=== PATIENT | male | born 1935 | race Asian ===

== ENCOUNTER 2016-11-28 10:36 | Inpatient (IN) | payer MEDICARE, MEDICAID ==
[~2016-11-28] VITALS: Ht 170.2 cm; Wt 72.6 kg
[~2016-11-28 10:36] MED LIST: ALLOPURINOL100 M1 ORAL; AMLODIPINE BESYL5 MG ORAL; ANTIVERT12.5 MG ORAL; ANTIVERT25 MG ORAL; APRODINE TABLE1 EACH PO; ASPIR 8181 MG ORAL; ASPIRIN-LOW81 MG ORAL; ASPIRIN81 MG ORAL; BACTRIM DS TAB1 EAC1 ORAL; CELEBREX200 MG ORAL; CILOSTAZOL100 MG PO; COREG12.5 MG ORAL; COREG25 MG ORAL; CREON DR 24,001 EACH PO; CRESTOR10 M1 ORAL; DESYREL50 MG ORAL; DIOVAN320 MG ORAL; DONEPEZIL HCL10 M2 ORAL; FINASTERIDE5 MG ORAL; FLOMAX0.4 MG ORAL; ISOSORBIDE MONO20 MG PO; Isosorbide Mononitrate ORAL; LORATADINE10 M2 PO; LYRICA75 M1 ORAL; MELATIN3 MG PO; NEPHRO-VITE RX1 EAC1 PO; NEXIUM40 MG ORAL; NORVASC5 MG ORAL; OMEPRAZOLE20 M2 ORAL; OSTERA TABLET1 EACH PO; PLAVIX75 MG ORAL; PREVACID30 M2 ORAL; PROCARDIA XL30 MG ORAL; PROTONIX40 MG ORAL; RISPERDAL0.25 MG ORAL; TAMSULOSIN HCL0.4 MG ORAL; TOPROL XL25 MG ORAL; UNOBMED; URECHOLINE10 MG ORAL
[2016-11-28 12:11] LABS: BASOPHILS % (AUTO) 0.5 % (0.0-2.0); EOSINOPHILS % (AUTO) 2.7 % (0.0-3.0); LYMPHOCYTES % (AUTO) 13.7 % (20.0-45.0); MEAN CORPUSCULAR HEMOGLOBIN 32.5 PG (27.0-31.0); MEAN CORPUSCULAR HGB CONC 33.4 G/DL (32.0-36.0); MEAN CORPUSCULAR VOLUME 98 FL (80-99); MEAN PLATELET VOLUME 7.9 FL (6.5-10.1); MONOCYTES % (AUTO) 10.4 % (1.0-10.0); NEUTROPHILS % (AUTO) 72.8 % (45.0-75.0); PLATELET COUNT 142 K/UL (150-450); RED BLOOD COUNT 3.04 M/UL (4.70-6.10); RED CELL DISTRIBUTION WIDTH 13.8 % (11.6-14.8); WHITE BLOOD COUNT 6.2 K/UL (4.8-10.8)
[2016-11-28 12:22] LABS: ALANINE AMINOTRANSFERASE 38 U/L (3-41); ALBUMIN/GLOBULIN RATIO 1.5 (1.0-2.7); ANION GAP 15 (5-15); ASPARTATE AMINO TRANSFERASE 31 U/L (5-40); CALCIUM 8.6 mg/dL (8.6-10.2); CARBON DIOXIDE 15 mEQ/L (20-30); CHLORIDE 110 mEQ/L (98-107); CREATININE 4.1 mg/dL (0.7-1.2); HEMOLYSIS 5; POTASSIUM 4.9 mEQ/L (3.4-4.9); SODIUM 140 mEQ/L (135-145); TOTAL PROTEIN 5.9 g/dL (6.6-8.7)
[2016-11-28 12:29] LABS: TROPONIN I < 0.30 ng/mL (<=0.30)
[2016-11-28 12:54] VITALS: BP 125/48
[2016-11-28 13:40] LABS: APPEARANCE,URINE CLEAR; KETONES,URINE NEGATIVE (NEGATIVE); LEUKOCYTE ESTERASE ,URINE NEGATIVE (NEGATIVE); NITRITE,URINE NEGATIVE (NEGATIVE); PH,URINE 5 (4.5-8.0); PROTEIN,URINE 4+ (NEGATIVE); UROBILINOGEN,URINE NORMAL MG/DL (0.0-1.0)
[2016-11-28 13:51] LABS: BACTERIA,URINE FEW /HPF; SQUAMOUS EPITHELIAL CELL,UR OCCASIONAL /LPF (NONE/OCC); WBC,URINE 0-2 /HPF (0 - 0)
--- NOTE | 2016-11-28 14:11 | Emergency Room Report ---
History of Present Illness General Chief Complaint: Pain Source: Family Member Present Illness HPI 81-year-old male presents ED complaining of shortness of breath. Son is at bedside and states the last 2 weeks patient has had increased shortness of breath. Denies any chest pain. Denies any fevers or chills. Patient also complaining of some flank pain. Patient has history of kidney disease, yeast to get dialysis but no longer gets dialysis at this time. Pain is sharp, 5/10, nonradiating. No other aggravating or relieving factors. PMD is Dr. Mckeon. Denies any other associated symptoms Allergies: Coded Allergies: No Known Allergies (Unverified , 12/16/14) Patient History Past Medical History: HTN, COPD, CVA/TIA, dementia, renal disease Past Surgical History: none Pertinent Family History: none Social History: Denies: alcohol use, drug use, smoking Immunizations: UTD Reviewed Nursing Documentation: PMH: Agreed, PSxH: Agreed Nursing Documentation-PMH Past Medical History: No History, Except For Hx Hypertension: Yes Hx COPD: Yes Hx Cancer: No Hx Gastrointestinal Problems: Yes Hx Dialysis: Yes - Previous.3 months ago Hx Neurological Problems: Yes Hx Cerebrovascular Accident: Yes Hx Dementia: Yes Review of Systems All Other Systems: negative except mentioned in HPI Physical Exam Vital Signs Date Time Temp Pulse Resp B/P Pulse Ox O2 Delivery O2 Flow Rate FiO2 11/28/16 10:47 97.2 64 22 125/48 90 Room Air Sp02 EP Interpretation: reviewed, normal General Appearance: no apparent distress, alert, GCS 15, non-toxic Head: normocephalic, atraumatic Eyes: bilateral eye PERRL, bilateral eye normal inspection ENT: hearing grossly normal, normal pharynx, no angioedema, normal voice Neck: full range of motion, supple/symm/no masses Respiratory: chest non-tender, normal breath sounds, crackles, speaking full sentences Cardiovascular #1: regular rate, rhythm, no edema Cardiovascular #2: 2+ carotid (R), 2+ carotid (L), 2+ radial (R), 2+ radial (L) , 2+ dorsalis pedis (R), 2+ dorsalis pedis (L) Gastrointestinal: normal bowel sounds, non tender, soft, non-distended, no guarding, no rebound Rectal: deferred Genitourinary: normal inspection, no CVA tenderness Musculoskeletal: back normal, gait/station normal, normal range of motion, non- tender, swelling - 1+ pitting edema b/l LE Neurologic: alert, oriented x3, responsive, motor strength/tone normal, sensory intact, speech normal Psychiatric: judgement/insight normal, memory normal, mood/affect normal, no suicidal/homicidal ideation Reflexes: 3+ bicep (R), 3+ bicep (L), 3+ tricep (R), 3+ tricep (L), 3+ knee (R) , 3+ knee (L) Skin: normal color, no rash, warm/dry, well hydrated Lymphatic: no adenopathy Medical Decision Making Diagnostic Impression: Primary Impression: CHF exacerbation Qualified Codes: I50.9 - Heart failure, unspecified Additional Impression: Acute on chronic renal failure ER Course Hospital Course 81-year-old male presents ED complaining of shortness of breath, leg swelling Differential diagnoses include: VT/unstable angina, contusion, muscle strain, PTX, rib fracture Clinical course Patient placed on stretcher. 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 After initial history and physical I ordered labs, EKG, chest x-ray labs reviewed- no leukocytosis, hemoglobin/hematocrit stable, creatinine 4.1, troponins negative, BNP greater than 20,000 Chest x-ray- pulmonary congestion, cardiomegaly. EKG - no ischemic changes, afib Antibiotics given. Lasix given. Case discussed with Dr. Mckeon and he agreed to accept the patient to his service for further care and support I. I feel this is a highly complex case requiring extensive working including EKG/Rhythm strip, Xray/CT/US, Blood/urine lab work, repeat exams while in ED, and administration of strong opiates/narcotics for pain control, admission to hospital or close patient follow up. Diagnosis - CHF exacerbation, acute on chronic renal failure admitted to telemetry in serious condition Labs Test 11/28/16 11:45 11/28/16 13:30 White Blood Count 6.2 K/UL (4.8-10.8) Red Blood Count 3.04 M/UL (4.70-6.10) Hemoglobin 9.9 G/DL (14.2-18.0) Hematocrit 29.7 % (42.0-52.0) Mean Corpuscular Volume 98 FL (80-99) Mean Corpuscular Hemoglobin 32.5 PG (27.0-31.0) Mean Corpuscular Hemoglobin Concent 33.4 G/DL (32.0-36.0) Red Cell Distribution Width 13.8 % (11.6-14.8) Platelet Count 142 K/UL (150-450) Mean Platelet Volume 7.9 FL (6.5-10.1) Neutrophils (%) (Auto) 72.8 % (45.0-75.0) Lymphocytes (%) (Auto) 13.7 % (20.0-45.0) Monocytes (%) (Auto) 10.4 % (1.0-10.0) Eosinophils (%) (Auto) 2.7 % (0.0-3.0) Basophils (%) (Auto) 0.5 % (0.0-2.0) Sodium Level 140 mEQ/L (135-145) Potassium Level 4.9 mEQ/L (3.4-4.9) Chloride Level 110 mEQ/L (98-107) Carbon Dioxide Level 15 mEQ/L (20-30) Anion Gap 15 (5-15) Blood Urea Nitrogen 44 mg/dL (7-23) Creatinine 4.1 mg/dL (0.7-1.2) Estimat Glomerular Filtration Rate mL/min (>60) Glucose Level 164 mg/dL (74-106) Lactic Acid Level 1.70 mmol/L (0.66-2.22) Calcium Level 8.6 mg/dL (8.6-10.2) Total Bilirubin 0.4 mg/dL (0.0-1.2) Aspartate Amino Transf (AST/SGOT) 31 U/L (5-40) Alanine Aminotransferase (ALT/SGPT) 38 U/L (3-41) Alkaline Phosphatase 102 U/L (40-129) Total Creatine Kinase 63 U/L (38-174) Troponin I < 0.30 ng/mL (<=0.30) Pro-B-Type Natriuretic Peptide 71355 pg/mL (0-450) Total Protein 5.9 g/dL (6.6-8.7) Albumin 3.6 g/dL (3.5-5.2) Globulin 2.3 g/dL Albumin/Globulin Ratio 1.5 (1.0-2.7) Urine Color Yellow Urine Appearance Clear Urine pH 5 (4.5-8.0) Urine Specific [place] 1.015 (1.005-1.035) Urine Protein 4+ (NEGATIVE) Urine Glucose (UA) 1+ (NEGATIVE) Urine Ketones Negative (NEGATIVE) Urine Occult Blood 2+ (NEGATIVE) Urine Nitrite Negative (NEGATIVE) Urine Bilirubin Negative (NEGATIVE) Urine Urobilinogen Normal MG/DL (0.0-1.0) Urine Leukocyte Esterase Negative (NEGATIVE) Urine RBC 5-10 /HPF (0 - 0) Urine WBC 0-2 /HPF (0 - 0) Urine Squamous Epithelial Cells Occasional /LPF Urine Bacteria Few /HPF (NONE) EKG Diagnostic Results Rate: normal Rhythm: other - afib ST Segments: no acute changes ASA given to the pt in ED: No Rhythm Strip Diag. Results EP Interpretation: yes Rhythm: NSR, no PVC's, no ectopy Chest X-Ray Diagnostic Results EP Interpretation: No Findings: no pneumothorax, no acute cardiopulmonary disease, other - cardionmegaly. b/l effusion. pulmonary congestion Number of Views: 1 Last Vital Signs Date Time Temp Pulse Resp B/P Pulse Ox O2 Delivery O2 Flow Rate FiO2 11/28/16 12:54 97.2 64 22 125/48 90 Room Air Status: improved Disposition: ADMITTED INPATIENT Condition: Serious Referrals: CHECO SALAZAR (PCP) DAVION CATHERINE M.D. Nov 28, 2016 14:11
[2016-11-28 14:31] VITALS: BP 128/51
[2016-11-28 16:00] VITALS: BP 140/60
--- NOTE | 2016-11-28 16:42 | History & Physical ---
History and Physical History & Physicial # [id number] CHECO SALAZAR Nov 28, 2016 16:42
[2016-11-28] MEDS: RisperiDONE 0.25mg tab ORAL SCH (17:21)
[2016-11-28] MEDS: Tamsulosin 0.4mg cap ORAL SCH (17:21)
--- NOTE | 2016-11-28 17:38 | Consultation ---
History of Present Illness General Date patient seen: Nov 28, 2016 Chief Complaint: dyspnea Reason for Consultation: dyspnea Present Illness HPI 81-year-old male with hx of CODP, ESRF, was on HD at some point presents ED complaining of shortness of breath. Son is at bedside and states the last 2 weeks patient has had increased shortness of breath. Denies any chest pain. Denies any fevers or chills. . Pain is sharp, 5/10, nonradiating. His CXR showed increased interstitial marking and I was asked to evaluate him. Pt seems slightly short of breath with occasional cough Allergies: Coded Allergies: No Known Allergies (Unverified , 12/16/14) Medication History Scheduled Amlodipine Besylate (Norvasc), 5 MG ORAL BID Aspirin (Aspirin EC), 81 MG ORAL DAILY, (Reported) Bethanechol Chl (Bethanechol Chloride), 10 MG ORAL THREE TIMES A DAY Carvedilol (Coreg), 25 MG ORAL EVERY 12 HOURS Donepezil Hcl* (Donepezil Hcl*), 10 MG ORAL DAILY, (Reported) Finasteride (Finasteride), 5 MG ORAL DAILY Meclizine Hcl* (Antivert*), 12.5 MG ORAL TID Omeprazole (Omeprazole), 20 MG ORAL DAILY, (Reported) Risperidone* (Risperdal*), 0.25 MG ORAL BID Tamsulosin HCl (Flomax), 0.4 MG ORAL TWICE A DAY Trazodone Hcl (Desyrel), 50 MG ORAL QHS Miscellaneous Medications Vit D3 & K/Berberine Hcl/Hops (Ostera Tablet), 1 EACH PO, (Reported) Patient History Healthcare decision maker Resuscitation status Advanced Directive on File Past Medical/Surgical History Past Medical/Surgical History: (1) ESRD (end stage renal disease) on dialysis (2) CVA (cerebral infarction) Review of Systems Respiratory: Reports: shortness of breath Physical Exam General Appearance: WD/WN HEENT: atraumatic Neck: non-tender Respiratory/Chest: chest wall non-tender, rhonchi - left, rhonchi - right Cardiovascular/Chest: normal peripheral pulses, normal rate Abdomen: normal bowel sounds Genitourinary/Rectal: normal genital exam, normal rectal exam Extremities: normal range of motion, non-tender, non-pitting 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 normal Last 24 Hour Vital Signs Date Time Temp Pulse Resp B/P Pulse Ox O2 Delivery O2 Flow Rate FiO2 11/28/16 17:21 66 140/60 11/28/16 16:00 98.0 66 20 140/60 92 Nasal Cannula 2.0 11/28/16 15:05 97.2 64 22 128/51 95 Room Air 11/28/16 14:31 97.2 64 22 128/51 95 Room Air 11/28/16 12:54 97.2 64 22 125/48 90 Room Air 11/28/16 10:47 97.2 64 22 125/48 90 Room Air Laboratory Tests Test 11/28/16 11:45 11/28/16 13:30 White Blood Count 6.2 K/UL (4.8-10.8) Red Blood Count 3.04 M/UL (4.70-6.10) L Hemoglobin 9.9 G/DL (14.2-18.0) L Hematocrit 29.7 % (42.0-52.0) L Mean Corpuscular Volume 98 FL (80-99) Mean Corpuscular Hemoglobin 32.5 PG (27.0-31.0) H Mean Corpuscular Hemoglobin Concent 33.4 G/DL (32.0-36.0) Red Cell Distribution Width 13.8 % (11.6-14.8) Platelet Count 142 K/UL (150-450) L Mean Platelet Volume 7.9 FL (6.5-10.1) Neutrophils (%) (Auto) 72.8 % (45.0-75.0) Lymphocytes (%) (Auto) 13.7 % (20.0-45.0) L Monocytes (%) (Auto) 10.4 % (1.0-10.0) H Eosinophils (%) (Auto) 2.7 % (0.0-3.0) Basophils (%) (Auto) 0.5 % (0.0-2.0) Sodium Level 140 mEQ/L (135-145) Potassium Level 4.9 mEQ/L (3.4-4.9) Chloride Level 110 mEQ/L (98-107) H Carbon Dioxide Level 15 mEQ/L (20-30) L Anion Gap 15 (5-15) Blood Urea Nitrogen 44 mg/dL (7-23) H Creatinine 4.1 mg/dL (0.7-1.2) H Estimat Glomerular Filtration Rate mL/min (>60) Glucose Level 164 mg/dL (74-106) H Lactic Acid Level 1.70 mmol/L (0.66-2.22) Calcium Level 8.6 mg/dL (8.6-10.2) Total Bilirubin 0.4 mg/dL (0.0-1.2) Aspartate Amino Transf (AST/SGOT) 31 U/L (5-40) Alanine Aminotransferase (ALT/SGPT) 38 U/L (3-41) Alkaline Phosphatase 102 U/L (40-129) Total Creatine Kinase 63 U/L (38-174) Creatine Kinase MB 2.0 ng/mL (< 6.7) Creatine Kinase MB Relative Index 3.1 Troponin I < 0.30 ng/mL (<=0.30) Pro-B-Type Natriuretic Peptide 32347 pg/mL (0-450) H Total Protein 5.9 g/dL (6.6-8.7) L Albumin 3.6 g/dL (3.5-5.2) Globulin 2.3 g/dL Albumin/Globulin Ratio 1.5 (1.0-2.7) Urine Color Yellow Urine Appearance Clear Urine pH 5 (4.5-8.0) Urine Specific [place] 1.015 (1.005-1.035) Urine Protein 4+ (NEGATIVE) H Urine Glucose (UA) 1+ (NEGATIVE) H Urine Ketones Negative (NEGATIVE) Urine Occult Blood 2+ (NEGATIVE) H Urine Nitrite Negative (NEGATIVE) Urine Bilirubin Negative (NEGATIVE) Urine Urobilinogen Normal MG/DL (0.0-1.0) Urine Leukocyte Esterase Negative (NEGATIVE) Urine RBC 5-10 /HPF (0 - 0) H Urine WBC 0-2 /HPF (0 - 0) Urine Squamous Epithelial Cells Occasional /LPF Urine Bacteria Few /HPF (NONE) Height (Feet): 5 Height (Inches): 7.00 Weight (Pounds): 160 Medications Current Medications Medications (Trade) Dose Ordered Sig/Kris Route PRN Reason Start Time Stop Time Status Last Admin Dose Admin Acetaminophen (Tylenol) 650 mg Q4H PRN ORAL Mild Pain/Temp > 100.5 11/28/16 16:45 12/28/16 16:44 Amlodipine Besylate (Norvasc) 5 mg BID ORAL 11/28/16 18:00 12/28/16 17:59 11/28/16 17:21 Aspirin (Ecotrin) 81 mg DAILY ORAL 11/29/16 09:00 12/29/16 08:59 Carvedilol (Coreg) 25 mg EVERY 12 HOURS ORAL 11/28/16 21:00 12/28/16 20:59 Finasteride (Proscar) 5 mg DAILY ORAL 11/29/16 09:00 12/29/16 08:59 Heparin Sodium (Porcine) (Heparin 5000 units/ml) 5,000 units EVERY 12 HOURS SUBQ 11/28/16 21:00 12/28/16 20:59 Ondansetron HCl (Zofran) 4 mg Q6H PRN IVP Nausea & Vomiting 11/28/16 16:45 12/28/16 16:44 Pantoprazole (Protonix) 40 mg ACBREAKFAST ORAL 11/28/16 16:30 12/28/16 16:29 11/28/16 17:21 Risperidone (RisperDAL) 0.25 mg BID ORAL 11/28/16 18:00 12/28/16 17:59 11/28/16 17:21 Tamsulosin HCl (Flomax) 0.4 mg TWICE A DAY ORAL 11/28/16 18:00 12/28/16 17:59 11/28/16 17:21 Trazodone HCl (Desyrel) 50 mg QHS ORAL 11/28/16 21:00 12/28/16 20:59 Assessment/Plan Problem List: (1) Interstitial lung disease ICD Codes: J84.9 - Interstitial pulmonary disease, unspecified SNOMED: 09733972, 386746083 (2) COPD (chronic obstructive pulmonary disease) ICD Codes: J44.9 - Chronic obstructive pulmonary disease, unspecified SNOMED: 79017972 (3) Chronic renal failure ICD Codes: N18.9 - Chronic renal failure SNOMED: 84134277 (4) ESRD (end stage renal disease) on dialysis ICD Codes: N18.6 - End stage renal failure on dialysis; Z99.2 - Dependence on renal dialysis SNOMED: 550827617 (5) CVA (cerebral infarction) ICD Codes: I63.9 - Cerebral infarction SNOMED: 658340274 Assessment/Plan Respiratory treatment titrate fio2 will get HRCT to evaluate interstitial finding on CXR Renal f/u. BRITT CASEY Nov 28, 2016 17:38
[2016-11-28] MEDS ORDERED: RisperiDONE 0.25mg tab ORAL SCH (18:00)
[2016-11-28 20:00] VITALS: BP 156/65
[2016-11-28] MEDS: TraZODone 50mg tab ORAL SCH (20:49)
[2016-11-28] MEDS: Carvedilol 25mg Tab ORAL SCH (20:49)
--- NOTE | 2016-11-28 20:52 | Cardiology Progress Note ---
Assessment/Plan Assessment/Plan exertion dyspnea / diastolic failure ? htn ckd advanced paf hs htn hx s/p cea s/p resection of ?kidney and partial y of liver and stomach (all per pt report ) received diuretic await echo await torp ekg labs in am diuretic if and when ok with dr french thank you [id number] Objective Last 24 Hour Vital Signs Date Time Temp Pulse Resp B/P Pulse Ox O2 Delivery O2 Flow Rate FiO2 11/28/16 20:00 98.1 71 21 156/65 92 Nasal Cannula 2.0 11/28/16 17:21 66 140/60 11/28/16 16:00 70 11/28/16 16:00 98.0 66 20 140/60 92 Nasal Cannula 2.0 11/28/16 15:05 97.2 64 22 128/51 95 Room Air 11/28/16 14:31 97.2 64 22 128/51 95 Room Air 11/28/16 12:54 97.2 64 22 125/48 90 Room Air 11/28/16 10:47 97.2 64 22 125/48 90 Room Air Laboratory Tests Test 11/28/16 11:45 11/28/16 13:30 White Blood Count 6.2 K/UL (4.8-10.8) Red Blood Count 3.04 M/UL (4.70-6.10) L Hemoglobin 9.9 G/DL (14.2-18.0) L Hematocrit 29.7 % (42.0-52.0) L Mean Corpuscular Volume 98 FL (80-99) Mean Corpuscular Hemoglobin 32.5 PG (27.0-31.0) H Mean Corpuscular Hemoglobin Concent 33.4 G/DL (32.0-36.0) Red Cell Distribution Width 13.8 % (11.6-14.8) Platelet Count 142 K/UL (150-450) L Mean Platelet Volume 7.9 FL (6.5-10.1) Neutrophils (%) (Auto) 72.8 % (45.0-75.0) Lymphocytes (%) (Auto) 13.7 % (20.0-45.0) L Monocytes (%) (Auto) 10.4 % (1.0-10.0) H Eosinophils (%) (Auto) 2.7 % (0.0-3.0) Basophils (%) (Auto) 0.5 % (0.0-2.0) Sodium Level 140 mEQ/L (135-145) Potassium Level 4.9 mEQ/L (3.4-4.9) Chloride Level 110 mEQ/L (98-107) H Carbon Dioxide Level 15 mEQ/L (20-30) L Anion Gap 15 (5-15) Blood Urea Nitrogen 44 mg/dL (7-23) H Creatinine 4.1 mg/dL (0.7-1.2) H Estimat Glomerular Filtration Rate mL/min (>60) Glucose Level 164 mg/dL (74-106) H Lactic Acid Level 1.70 mmol/L (0.66-2.22) Calcium Level 8.6 mg/dL (8.6-10.2) Total Bilirubin 0.4 mg/dL (0.0-1.2) Aspartate Amino Transf (AST/SGOT) 31 U/L (5-40) Alanine Aminotransferase (ALT/SGPT) 38 U/L (3-41) Alkaline Phosphatase 102 U/L (40-129) Total Creatine Kinase 63 U/L (38-174) Creatine Kinase MB 2.0 ng/mL (< 6.7) Creatine Kinase MB Relative Index 3.1 Troponin I < 0.30 ng/mL (<=0.30) Pro-B-Type Natriuretic Peptide 63554 pg/mL (0-450) H Total Protein 5.9 g/dL (6.6-8.7) L Albumin 3.6 g/dL (3.5-5.2) Globulin 2.3 g/dL Albumin/Globulin Ratio 1.5 (1.0-2.7) Urine Color Yellow Urine Appearance Clear Urine pH 5 (4.5-8.0) Urine Specific [place] 1.015 (1.005-1.035) Urine Protein 4+ (NEGATIVE) H Urine Glucose (UA) 1+ (NEGATIVE) H Urine Ketones Negative (NEGATIVE) Urine Occult Blood 2+ (NEGATIVE) H Urine Nitrite Negative (NEGATIVE) Urine Bilirubin Negative (NEGATIVE) Urine Urobilinogen Normal MG/DL (0.0-1.0) Urine Leukocyte Esterase Negative (NEGATIVE) Urine RBC 5-10 /HPF (0 - 0) H Urine WBC 0-2 /HPF (0 - 0) Urine Squamous Epithelial Cells Occasional /LPF Urine Bacteria Few /HPF (NONE) DARBY MARIE Nov 28, 2016 20:52
[2016-11-28] MEDS: Heparin 5000 units/ml inj SUBQ SCH (21:00)
[2016-11-29] VITALS (8 sets, daily range): BP systolic 144–165; BP diastolic 61–86
--- NOTE | 2016-11-29 02:38 | History and Physical Report ---
DATE OF ADMISSION: 11/28/2016 HISTORY OF PRESENT ILLNESS: The patient is an 81-year-old and comes in to our emergency room with shortness of breath. The patient is known to me as he follows me in the office. I saw him a week ago in the office and he was mainly stable with some elevated blood pressure. Apparently, he has been complaining of weakness and shortness of breath for the past few days and he was brought into emergency room for that reason. PAST HISTORY: Significant for TIAs, CVA, and hypertension. The patient at one point was on hemodialysis, but was found to have urinary outlet obstruction and BPH, so he came off from dialysis and creatinine has been under 3, but today his creatinine in emergency room is 4.1. The patient also has high cholesterol, coronary artery disease, history of multifocal atrial tachycardia, COPD, bronchitis, and interstitial lung disease. MEDICATIONS: According to the list, the patient takes regularly Flomax and Proscar for BPH. PHYSICAL EXAMINATION: GENERAL: At this point, the patient appears comfortable and is slow. VITAL SIGNS: Temperature 98 degrees, pulse rate 66, respiratory rate 20, and blood pressure 140/60. HEENT: Face is pale. Head is normocephalic. NECK: Rigid to all directions. Sclerae is not icteric. LUNGS: Poor inspiratory effort. Decreased breath sounds over the bases. HEART: Regular with occasional irregular beats. ABDOMEN: Soft. Multiple scars of previous surgery. Slight tenderness over the lower extremities. EXTREMITIES: Lower extremities, no edema. The patient has a fistula over the left arm with good bruit. LABORATORY DATA: Hemoglobin is 9.9. Creatinine is 4.1 and bicarbonate is 15. Pro-natriuretic peptide is 20,000. Urinalysis is 4+ protein. IMPRESSION: 1. Acute on chronic renal failure. 2. Pulmonary symptoms are most likely secondary to volume overload and congestive heart failure. 3. History of multi-infarct brain disease. 4. Hypertension. 5. Coronary artery disease and history of cardiac arrhythmia. PLAN: At this point is to continue the patient on his usual medications, which is Norvasc, aspirin, Coreg, Proscar, Protonix, Flomax, and trazodone. The patient was given one dose of IV Lasix. We will diurese as needed. Optimize cardiac status. 2D echocardiogram and kidney ultrasound will be ordered. Pulmonary and cardiology consultation is sought. According to how the patient's condition evolves, we will make the proper changes in our future management. Ady Gómez M.D. DR: JERRY JOB#: [id number] CC:
--- NOTE | 2016-11-29 07:08 | Consultation ---
DATE OF CONSULTATION: 11/28/2016 CARDIAC CONSULTATION: CONSULTING PHYSICIAN: Marko Thakkar M.D. REFERRING PHYSICIAN: Ady Gómez M.D. REASON FOR REFERRAL: Shortness of breath. HISTORY OF PRESENT ILLNESS: This is an elderly gentleman, German descent, a patient, who was transferred through one of our staff that speaks German and it sounds like that he has had a history of medical problems previously that delineated below, and who presented to the hospital because of shortness of breath with exertion. Anytime, he walks to the bathroom, he has shortness of breath. There is no PND. He uses one pillow. He has occasional dizziness and likely he has occasional palpitations, but no pain, pressure, or tightness in his chest. PAST MEDICAL HISTORY: His past medical history is positive for history of intractable diarrhea, and possible colitis, hypertension, and chronic kidney disease, stage 3, history of multiple brain infarcts in the past with decreased cognition, and coronary artery disease, of unknown details, history of gastroesophageal reflux disease, and apparently previously on dialysis, multifocal atrial tachycardia, respiratory failure, COPD and history of atrial fibrillation with rapid ventricular response, and fluid overload. Past medical history is also positive for history of partial nephrectomy and hepatectomy and possible gastrectomy of some kind at [facility] a number of years ago. Unfortunately, details of these are unknown. Past medical history also indicates that the patient has a history of carotid endarterectomy on the right side and multiple back surgeries as well. ALLERGIES: There is no known drug allergies. SOCIAL HISTORY: He does not smoke or drink alcoholic beverages. REVIEW OF SYSTEMS: Gastrointestinal: Denies any nausea or vomiting. No diarrhea or constipation. No bloody stools or black stools. Genitourinary: He has occasional discomfort on urination. Pulmonary: Denies any coughing or wheezing. Constitutional: He denies any fever, chills, or night sweats. PHYSICAL EXAMINATION: GENERAL: Shows him to be an elderly gentleman, in no apparent respiratory distress. NECK: Supple. No jugular venous distention. CAROTIDS: Scar in the right side is noted. LUNGS: Clear in the upper, he had some crackles on the right side more so than the left side. CARDIAC: Regular rate and rhythm. Systolic ejection murmur. There is no RV lift, heaves, or thrills noted. ABDOMEN: Soft. Multiple surgical scars and some tenderness to deep palpation. No guarding. No rigidity. EXTREMITIES: There is no clubbing, cyanosis, nor is there any edema. NEUROLOGIC: He is awake, alert, responsive, and in no apparent respiratory distress. LABORATORY DATA: His labs to this hospitalization show white count of 6.2, hemoglobin 9.9, and platelet count of 142,000. His sodium is 140, potassium 4.9, chloride 110, bicarbonate 50, BUN 44, creatinine 4.1, and glucose of 164. His creatinine is higher than his baseline of 2.5 back in January of 2016. Pro-BNP is 20,000. Troponin is less than 0.03. His urinalysis, 5 to 10 RBCs, 0 to 2 WBCs, and unfortunately, he does not have any EKGs for me to review. He had a chest x-ray to my reading, shows cardiomegaly , and possibly some infiltrate at the bases. No electrocardiogram review unfortunately. ASSESSMENT: 1. Exertional chest pain. 2. History of carotid endarterectomy. 3. Chronic kidney disease. 4. atrial fibrillation. 5. History of hypertension. 6. Hyperlipidemia. PLAN: This patient was seen in cardiac consultation. The patient had progressive renal disease with the creatinine being elevated. I would check an echocardiogram for evaluation of systolic function. EKG is to be ordered. His natriuretic peptide was diagnosed in light of the fact that he has renal insufficiency to a subscript degree. He has received some diuretics today at 1 o'clock in the emergency room for which he has responded. We would await the results of the response to that medication as well as the echocardiogram prior to ordering further testing. He does not seem to have any symptoms to suggest infection and therefore, I suspect that this may actually be a component of heart failure, possibly preserved systolic function. Cardiac enzymes will be repeated as well. Dr. Higginbotham, thank you for allowing me to participate in the care of this patient. Marko Thakkar M.D. : Fabiano JOB#: [id number] CC:
[2016-11-29 08:17] LABS: BASOPHILS % (AUTO) 0.3 % (0.0-2.0); EOSINOPHILS % (AUTO) 1.3 % (0.0-3.0); LYMPHOCYTES % (AUTO) 8.8 % (20.0-45.0); MEAN CORPUSCULAR HEMOGLOBIN 33.3 PG (27.0-31.0); MEAN CORPUSCULAR HGB CONC 34.6 G/DL (32.0-36.0); MEAN CORPUSCULAR VOLUME 96 FL (80-99); MEAN PLATELET VOLUME 6.9 FL (6.5-10.1); MONOCYTES % (AUTO) 10.3 % (1.0-10.0); NEUTROPHILS % (AUTO) 79.4 % (45.0-75.0); PLATELET COUNT 150 K/UL (150-450); RED BLOOD COUNT 2.93 M/UL (4.70-6.10); RED CELL DISTRIBUTION WIDTH 13.1 % (11.6-14.8); WHITE BLOOD COUNT 8.4 K/UL (4.8-10.8)
[2016-11-29 08:47] LABS: ALANINE AMINOTRANSFERASE 27 U/L (3-41); ALBUMIN/GLOBULIN RATIO 1.5 (1.0-2.7); ANION GAP 15 (5-15); ASPARTATE AMINO TRANSFERASE 16 U/L (5-40); CALCIUM 8.6 mg/dL (8.6-10.2); CARBON DIOXIDE 17 mEQ/L (20-30); CHLORIDE 110 mEQ/L (98-107); HEMOLYSIS 0; MAGNESIUM 1.9 mg/dL (1.7-2.5); POTASSIUM 4.3 mEQ/L (3.4-4.9); SODIUM 142 mEQ/L (135-145); TOTAL PROTEIN 5.7 g/dL (6.6-8.7)
[2016-11-29] MEDS: Carvedilol 25mg Tab ORAL SCH ×2 (09:02→21:17)
[2016-11-29] MEDS: RisperiDONE 0.25mg tab ORAL SCH ×2 (09:02→17:00)
[2016-11-29] MEDS: Tamsulosin 0.4mg cap ORAL SCH ×2 (09:03→17:00)
[2016-11-29] MEDS: Aspirin EC 81mg tab ORAL SCH (09:03)
[2016-11-29] MEDS: Heparin 5000 units/ml inj SUBQ SCH ×2 (09:05→21:18)
--- NOTE | 2016-11-29 09:26 | Diagnostic Imaging Report ---
Indication: Renal failure Technique: Grayscale and duplex images of the kidneys, retroperitoneum, and bladder were obtained. Comparison:Abdomen ultrasound 04/17/2015 Findings: Right kidney measures 7.2 cm in length. Left kidney measures 10.3 cm in length. Right kidney demonstrates increased echogenicity. Left kidney demonstrates equivocal increased echogenicity. No hydronephrosis. There are small right renal cysts. There is a left lower pole renal cyst. Normal inferior vena cava. Bladder is normal. Impression: Negative for hydronephrosis Atrophic echogenic right kidney, also previously described. Equivocal mildly increased echogenicity of the left kidney as well. This may represent medical renal disease Incidental finding bilateral renal cysts
--- NOTE | 2016-11-29 09:27 | Diagnostic Imaging Report ---
Indication: SOB Technique: One view of the chest Comparison: 04/19/2015 Findings: Mostly interstitial opacities are seen throughout both lungs, associated central bronchial wall thickening, appearing similar to although perhaps slightly more prominent than seen on the prior study. These appear similar to multiple earlier studies. There is blunting of the left costophrenic sulcus. Previously demonstrated right upper lobe infiltrate has resolved. The heart is enlarged Impression: Bilateral mostly interstitial opacities. Suspect chronic but component of acute interstitial edema is also possible. Correlate with clinical findings Possible small left pleural effusion Cardiomegaly
[2016-11-29 09:37] LABS: TROPONIN I < 0.30 ng/mL (<=0.30)
--- NOTE | 2016-11-29 13:27 | General Progress Note ---
Assessment/Plan Status: stable Status Narrative Cr 4 Assessment/Plan 1. Acute on chronic renal failure. 2. Pulmonary symptoms are most likely secondary to volume overload and congestive heart failure. 3. History of multi-infarct brain disease. 4. Hypertension. 5. Coronary artery disease and history of cardiac arrhythmia. 6. Anemia Plan: Epogen- Zaroxyllin- add hytrin HS monitor renal parameters Subjective ROS Limited/Unobtainable: No Constitutional: Reports: malaise Allergies: Coded Allergies: No Known Allergies (Unverified , 12/16/14) Objective Last 24 Hour Vital Signs Date Time Temp Pulse Resp B/P Pulse Ox O2 Delivery O2 Flow Rate FiO2 11/29/16 11:30 96.2 72 20 144/61 93 Nasal Cannula 2.0 11/29/16 09:03 71 159/68 11/29/16 09:02 71 159/68 11/29/16 08:00 76 11/29/16 07:59 98.4 71 20 159/68 94 Nasal Cannula 2.0 11/29/16 04:31 98.3 75 19 150/70 94 Nasal Cannula 2.0 11/29/16 04:00 72 11/29/16 00:30 148/86 11/29/16 00:12 98.8 79 20 165/65 96 Nasal Cannula 2.0 11/29/16 00:00 73 11/28/16 20:49 71 156/65 11/28/16 20:00 98.1 71 21 156/65 92 Nasal Cannula 2.0 11/28/16 20:00 74 11/28/16 17:21 66 140/60 11/28/16 16:00 70 11/28/16 16:00 98.0 66 20 140/60 92 Nasal Cannula 2.0 11/28/16 15:05 97.2 64 22 128/51 95 Room Air 11/28/16 14:31 97.2 64 22 128/51 95 Room Air Intake and Output 11/28/16 11/29/16 19:00 07:00 Output Total 1700 ml Balance -1700 ml Output Urine Total 1700 ml # Voids 1 Laboratory Tests 11/28/16 13:30: Urine Color Yellow, Urine Appearance Clear, Urine pH 5, Urine Specific [place] 1.015, Urine Protein 4+H, Urine Glucose (UA) 1+H, Urine Ketones Negative, Urine Occult Blood 2+H, Urine Nitrite Negative, Urine Bilirubin Negative, Urine Urobilinogen Normal, Urine Leukocyte Esterase Negative, Urine RBC 5-10H, Urine WBC 0-2, Urine Squamous Epithelial Cells Occasional, Urine Bacteria Few 11/29/16 04:00: Urine Eosinophils None seen 11/29/16 07:25: White Blood Count 8.4, Red Blood Count 2.93L, Hemoglobin 9.8L, Hematocrit 28.2L , Mean Corpuscular Volume 96, Mean Corpuscular Hemoglobin 33.3H, Mean Corpuscular Hemoglobin Concent 34.6, Red Cell Distribution Width 13.1, Platelet Count 150, Mean Platelet Volume 6.9, Neutrophils (%) (Auto) 79.4H, Lymphocytes ( %) (Auto) 8.8L, Monocytes (%) (Auto) 10.3H, Eosinophils (%) (Auto) 1.3, Basophils (%) (Auto) 0.3, Sodium Level 142, Potassium Level 4.3, Chloride Level 110H, Carbon Dioxide Level 17L, Anion Gap 15, Blood Urea Nitrogen 46H, Creatinine 4.0H, Estimat Glomerular Filtration Rate , Glucose Level 96, Hemoglobin A1c [Pending], Uric Acid [Pending], Calcium Level 8.6, Magnesium Level 1.9, Ferritin [Pending], Total Bilirubin 0.8, Gamma Glutamyl Transpeptidase [Pending], Aspartate Amino Transf (AST/SGOT) 16, Alanine Aminotransferase (ALT/SGPT) 27, Alkaline Phosphatase 94, Troponin I < 0.30, C- Reactive Protein, Quantitative [Pending], Pro-B-Type Natriuretic Peptide 66625H , Total Protein 5.7L, Albumin 3.5, Globulin 2.2, Albumin/Globulin Ratio 1.5, Triglycerides Level [Pending], Cholesterol Level [Pending], LDL Cholesterol [ Pending], HDL Cholesterol [Pending], Cholesterol/HDL Ratio [Pending], Vitamin B12 Level [Pending], Folate [Pending], Thyroid Stimulating Hormone (TSH) [ Pending] Height (Feet): 5 Height (Inches): 7.00 Weight (Pounds): 160 General Appearance: no apparent distress Cardiovascular: normal rate Respiratory/Chest: decreased breath sounds Abdomen: soft Objective other PE not changed CHECO SALAZAR Nov 29, 2016 13:27
[2016-11-29] MEDS ORDERED: Metolazone 5mg tab ORAL ONE (13:30)
--- NOTE | 2016-11-29 14:14 | Cardiology Report ---
APPROVED REPORT EXAM: Two-dimensional and M-mode echocardiogram with Doppler and color Doppler. INDICATION Congestive Heart Failure M-Mode DIMENSIONS IVSd0.9 (0.7-1.1cm)Left Atrium (MM)4.7 (1.6-4.0cm) LVDd6.0 (3.5-5.6cm)Aortic Root3.6 (2.0-3.7cm) PWd1.1 (0.7-1.1cm)Aortic Cusp Exc.1.9 (1.5-2.0cm) IVSs1.0 cm LVDs3.7 (2.5-4.0cm) PWs1.1 cm Technically difficult study due to poor acoustic windows. Normal left ventricular chamber size, systolic function and wall motion. Left ventricular ejection fraction estimated to be 55-60 %. Mild left ventricular hypertrophy. Mild posterior pericardial effusion. Mild left atrial enlargement by 2D. Right cardiac chamber sizes are within normal limits. Focal aortic valve sclerosis with adequate cusp excursion Thickened mitral valve leaflets with normal excursion. Mitral annulus and aortic root calcification. Pulmonic valve not well visualized. Normal tricuspid valve structure. IVC is normal in size with physiologic collapse. A color flow and spectral Doppler study was performed and revealed: No aortic regurgitation. Moderate mitral regurgitation. Normal left ventricular diastolic dysfunction. Mild tricuspid regurgitation. Tricuspid systolic velocities suggests peak right ventricular systolic pressure of 53 mmHg Consistent with severe pulmonary hypertension.
[2016-11-29 14:26] LABS: INR 1.2 (0.9-1.1)
[2016-11-29 14:30] LABS: LACTATE DEHYDROGENASE 209 U/L (135-230)
[2016-11-29 15:01] LABS: PATH BLOOD SMEAR/OMC SENT TO PATHOLOGIST; RETICULOCYTE COUNT 2.8 % (0.0-2.0)
[2016-11-29 15:12] LABS: BAND NEUTROPHILS % (MANUAL) 1 % (0-8); BASOPHILS % (MANUAL) 0 % (0-2); EOSINOPHILS % (MANUAL) 0 % (0-3); LYMPHOCYTES % (MANUAL) 6 % (20-45); NEUTROPHILS % (MANUAL) 81 % (45-75); PLATELET ESTIMATE ADEQUATE; PLATELET MORPHOLOGY NORMAL; TOTAL CELLS COUNTED 100
[2016-11-29 15:20] LABS: ERYTHROCYTE SEDIMENTATION RATE 50 MM/HR (0-30)
[2016-11-29 15:27] LABS: CHOLESTEROL 157 mg/dL (< 200); CHOLESTEROL/HDL RATIO 4.2 (3.3-4.4); CRP QUANT 4.4 mg/dL (< 0.5); LDL CHOLESTEROL (CALC.) 101 mg/dL (60-99); URIC ACID 11.2 mg/dL (3.0-7.5)
[2016-11-29 15:47] LABS: FERRITIN 379 ng/mL (10-230)
--- NOTE | 2016-11-29 15:58 | Diagnostic Imaging Report ---
Indication: DYSPNEA Technique: One view of the chest Comparison: 11/28/2016 Findings: Bilateral interstitial and alveolar disease is again demonstrated, with slightly denser consolidation in the left upper lobe as compared to prior study. Blunting of the left costophrenic sulcus likely indicates a small pleural effusion. The heart is mildly enlarged. Impression: Slight worsening of parenchymal disease in the left upper lobe. Otherwise, little record changer one day, findings as described
--- NOTE | 2016-11-29 17:35 | Cardiology Progress Note ---
Assessment/Plan Assessment/Plan exertion dyspnea / diastolic failure ? systemic htn ckd advanced paf hs pulmonary htn s/p cea s/p resection of ?kidney and partial y of liver and stomach (all per pt report ) lv fxn normal echo noted repeat torp neg ekg labs noted diuretic ekg afib but tele shows sinus obsserve on tele will need outpt fu cr stabl despite diuretics Subjective Cardiovascular: Denies: chest pain, lightheadedness Respiratory: Denies: shortness of breath Gastrointestinal/Abdominal: Denies: abdominal pain Genitourinary: Denies: burning Objective Last 24 Hour Vital Signs Date Time Temp Pulse Resp B/P Pulse Ox O2 Delivery O2 Flow Rate FiO2 11/29/16 17:00 78 162/77 11/29/16 16:00 98.2 78 20 162/77 91 Nasal Cannula 2.0 11/29/16 12:00 72 11/29/16 11:30 96.2 72 20 144/61 93 Nasal Cannula 2.0 11/29/16 09:03 71 159/68 11/29/16 09:02 71 159/68 11/29/16 08:00 76 11/29/16 07:59 98.4 71 20 159/68 94 Nasal Cannula 2.0 11/29/16 04:31 98.3 75 19 150/70 94 Nasal Cannula 2.0 11/29/16 04:00 72 11/29/16 00:30 148/86 11/29/16 00:12 98.8 79 20 165/65 96 Nasal Cannula 2.0 11/29/16 00:00 73 11/28/16 20:49 71 156/65 11/28/16 20:00 98.1 71 21 156/65 92 Nasal Cannula 2.0 11/28/16 20:00 74 General Appearance: no apparent distress, alert Neck: no JVD Cardiovascular: normal rate, regular rhythm Respiratory/Chest: lungs clear, normal breath sounds Abdomen: normal bowel sounds, non tender, soft Extremities: no swelling Intake and Output 11/28/16 11/29/16 19:00 07:00 Output Total 1700 ml Balance -1700 ml Output Urine Total 1700 ml # Voids 1 Laboratory Tests Test 11/29/16 04:00 11/29/16 07:25 11/29/16 13:50 Urine Eosinophils None seen White Blood Count 8.4 K/UL (4.8-10.8) Red Blood Count 2.93 M/UL (4.70-6.10) L Hemoglobin 9.8 G/DL (14.2-18.0) L Hematocrit 28.2 % (42.0-52.0) L Mean Corpuscular Volume 96 FL (80-99) Mean Corpuscular Hemoglobin 33.3 PG (27.0-31.0) H Mean Corpuscular Hemoglobin Concent 34.6 G/DL (32.0-36.0) Red Cell Distribution Width 13.1 % (11.6-14.8) Platelet Count 150 K/UL (150-450) Mean Platelet Volume 6.9 FL (6.5-10.1) Neutrophils (%) (Auto) 79.4 % (45.0-75.0) H Lymphocytes (%) (Auto) 8.8 % (20.0-45.0) L Monocytes (%) (Auto) 10.3 % (1.0-10.0) H Eosinophils (%) (Auto) 1.3 % (0.0-3.0) Basophils (%) (Auto) 0.3 % (0.0-2.0) Differential Total Cells Counted 100 Neutrophils % (Manual) 81 % (45-75) H Lymphocytes % (Manual) 6 % (20-45) L Monocytes % (Manual) 12 % (1-10) H Eosinophils % (Manual) 0 % (0-3) Basophils % (Manual) 0 % (0-2) Band Neutrophils 1 % (0-8) Platelet Estimate Adequate Platelet Morphology Normal Red Blood Cell Morphology Normal Sodium Level 142 mEQ/L (135-145) Potassium Level 4.3 mEQ/L (3.4-4.9) Chloride Level 110 mEQ/L (98-107) H Carbon Dioxide Level 17 mEQ/L (20-30) L Anion Gap 15 (5-15) Blood Urea Nitrogen 46 mg/dL (7-23) H Creatinine 4.0 mg/dL (0.7-1.2) H Estimat Glomerular Filtration Rate mL/min (>60) Glucose Level 96 mg/dL (74-106) Hemoglobin A1c Pending Uric Acid 11.2 mg/dL (3.0-7.5) H Calcium Level 8.6 mg/dL (8.6-10.2) Magnesium Level 1.9 mg/dL (1.7-2.5) Ferritin 379 ng/mL (10-230) H Total Bilirubin 0.8 mg/dL (0.0-1.2) Gamma Glutamyl Transpeptidase 82 U/L (8-61) H Aspartate Amino Transf (AST/SGOT) 16 U/L (5-40) Alanine Aminotransferase (ALT/SGPT) 27 U/L (3-41) Alkaline Phosphatase 94 U/L (40-129) Troponin I < 0.30 ng/mL (<=0.30) C-Reactive Protein, Quantitative 4.4 mg/dL (< 0.5) H Pro-B-Type Natriuretic Peptide 51935 pg/mL (0-450) H Total Protein 5.7 g/dL (6.6-8.7) L Albumin 3.5 g/dL (3.5-5.2) Globulin 2.2 g/dL Albumin/Globulin Ratio 1.5 (1.0-2.7) Triglycerides Level 97 mg/dL (< 150) Cholesterol Level 157 mg/dL (< 200) LDL Cholesterol 101 mg/dL (60-99) H HDL Cholesterol 37 mg/dL (> 60) Cholesterol/HDL Ratio 4.2 (3.3-4.4) Vitamin B12 Level > 2000 pg/mL (211-946) H Folate Pending Thyroid Stimulating Hormone (TSH) 1.800 uIU/mL (0.300-4.500) Erythrocyte Sedimentation Rate 50 MM/HR (0-30) H Reticulocyte Count 2.8 % (0.0-2.0) H Prothrombin Time 12.0 SEC (9.30-11.50) H Prothromb Time International Ratio 1.2 (0.9-1.1) H Activated Partial Thromboplast Time 35 SEC (23-33) H Iron Level Pending Unsaturated Iron Binding Pending Lactate Dehydrogenase 209 U/L (135-230) Carcinoembryonic Antigen Pending Free Prostate Specific Antigen Pending Percent Free Prostate Specific Ag Pending Prostate Specific Antigen Total Pending DARBY MARIE Nov 29, 2016 17:35
[2016-11-29] MEDS ORDERED: Terazosin 2mg cap ORAL SCH (21:00)
[2016-11-29] MEDS: Epogen (for non ESRD use) SUBQ SCH (21:16)
[2016-11-29] MEDS: TraZODone 50mg tab ORAL SCH (21:23)
[2016-11-30 00:09] VITALS: BP 151/59
[2016-11-30 00:34] LABS: IRON 17 ug/dL (59-158); TOTAL IRON BINDING CAPACITY 206 ug/dL (250-400)
[2016-11-30 04:08] VITALS: BP 141/60
[2016-11-30 08:00] VITALS: BP 125/48
[2016-11-30 08:00] LABS: BASOPHILS % (AUTO) 0.6 % (0.0-2.0); LYMPHOCYTES % (AUTO) 16.7 % (20.0-45.0); MEAN CORPUSCULAR HEMOGLOBIN 32.4 PG (27.0-31.0); MEAN CORPUSCULAR HGB CONC 33.8 G/DL (32.0-36.0); MEAN CORPUSCULAR VOLUME 96 FL (80-99); MEAN PLATELET VOLUME 6.6 FL (6.5-10.1); MONOCYTES % (AUTO) 12.8 % (1.0-10.0); NEUTROPHILS % (AUTO) 66.9 % (45.0-75.0); PLATELET COUNT 125 K/UL (150-450); RED BLOOD COUNT 3.03 M/UL (4.70-6.10); RED CELL DISTRIBUTION WIDTH 12.9 % (11.6-14.8); WHITE BLOOD COUNT 7.2 K/UL (4.8-10.8)
--- NOTE | 2016-11-30 08:17 | Cardiology Report ---
APPROVED REPORT EKG Measurement Heart [id number] Atrial fibrillation with slow ventricular response Septal infarct, age undetermined Abnormal ECG
[2016-11-30 08:23] LABS: ALANINE AMINOTRANSFERASE 18 U/L (3-41); ALBUMIN/GLOBULIN RATIO 1.2 (1.0-2.7); ANION GAP 18 (5-15); ASPARTATE AMINO TRANSFERASE 12 U/L (5-40); CALCIUM 8.5 mg/dL (8.6-10.2); CARBON DIOXIDE 17 mEQ/L (20-30); CHLORIDE 104 mEQ/L (98-107); CREATININE 4.4 mg/dL (0.7-1.2); HEMOLYSIS 2; POTASSIUM 4.2 mEQ/L (3.4-4.9); SODIUM 139 mEQ/L (135-145); TOTAL PROTEIN 5.5 g/dL (6.6-8.7); URIC ACID 10.7 mg/dL (3.0-7.5)
[2016-11-30] MEDS: Heparin 5000 units/ml inj SUBQ SCH (09:00)
[2016-11-30] MEDS: Aspirin EC 81mg tab ORAL SCH (09:15)
[2016-11-30] MEDS: Tamsulosin 0.4mg cap ORAL SCH ×2 (09:17→17:47)
[2016-11-30] MEDS: RisperiDONE 0.25mg tab ORAL SCH (09:18)
--- NOTE | 2016-11-30 11:40 | Diagnostic Imaging Report ---
Indications: Increasing shortness of breath for 2 weeks Technique: Continuous helical CT imaging of the thorax was performed with automatic exposure control on a Siemens sensation [address] scanner. Axial, coronal, sagittal images were reconstructed at 5 mm slice thickness. Thin section high-resolution axial images were reconstructed at 1 mm slice thickness and 10 mm interval. CTDI volume(s): 18 mGy Total DLP: 647 mGy-cm Findings: Comparison: None Lung volumes appear overall within normal limits bilaterally. Patchy parenchymal consolidation and volume loss in the dependent portions of both lung bases, right greater than left. Associated parenchymal calcification. More discrete calcified linear opacities are also present in both lung bases and in the right upper lobe. Extensive, partially confluent small-caliber cystic spaces are present throughout both upper lobes. There is associated intralobular septal thickening and interspersed groundglass opacity. This is more prominent on the left. No evidence of significant bronchial wall thickening or traction bronchiectasis. Moderate right pleural effusion. Moderate pericardial effusion, 18 mm maximum diameter. Heart enlarged. Prominent arterial mural calcifications. Vascular patency indeterminate. Thoracic aorta nonaneurysmal. Calcified nodules in hilum, left paratracheal region mediastinum. No overtly enlarged mediastinal or hilar lymph nodes. Chest wall soft tissues nonfocal. Gallbladder absent. Surgical clips in gallbladder fossa. Gas in nondilated left intrahepatic bile ducts. Small caliber catheter along undersurface of liver. Both kidneys atrophic, right greater than left. Disc space narrowing with marginal osteophyte formation, vacuum phenomenon upper lumbar spine. Ossification of thoracic vertebral fracture longitudinal ligament. IMPRESSION: Bilateral upper lobe emphysematous changes/fibrosis. Background groundglass opacity is nonspecific and may represent superimposed acute pulmonary edema. 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
[2016-11-30 12:00] VITALS: BP 134/66
[2016-11-30 12:20] LABS: PSA FREE 0.06 ng/mL; PSA TOTAL 0.2 ng/mL (0.0-4.0)
[2016-11-30] MEDS ORDERED: Sorbitol Solution UD 30ml ORAL ONE (14:00)
--- NOTE | 2016-11-30 14:06 | General Progress Note ---
Assessment/Plan Status: unchanged Assessment/Plan 1. Acute on chronic renal failure. 2. Pulmonary symptoms are most likely secondary to volume overload and congestive heart failure. CT: Bilateral upper lobe emphysematous changes/fibrosis. Background groundglass opacity is nonspecific and may represent superimposed acute pulmonary edema. 3. History of multi-infarct brain disease. 4. Hypertension. 5. Coronary artery disease and history of cardiac arrhythmia. 6. Anemia Plan: Epogen- Venofer- Laxative- add hytrin HS monitor renal parameters consider dialysis if Cr worsens Subjective ROS Limited/Unobtainable: No Constitutional: Reports: malaise Gastrointestinal/Abdominal: Reports: abdominal pain - and constipation Allergies: Coded Allergies: No Known Allergies (Unverified , 12/16/14) Objective Last 24 Hour Vital Signs Date Time Temp Pulse Resp B/P Pulse Ox O2 Delivery O2 Flow Rate FiO2 11/30/16 09:17 55 123/48 11/30/16 08:00 44 11/30/16 08:00 97.2 55 17 125/48 95 Nasal Cannula 2.0 55 11/30/16 04:08 97.9 61 19 141/60 98 Nasal Cannula 2.0 11/30/16 04:00 68 11/30/16 00:30 99.6 11/30/16 00:21 99.6 11/30/16 00:09 100.4 80 20 151/59 98 Nasal Cannula 2.0 11/30/16 00:00 73 11/29/16 21:17 80 152/74 11/29/16 20:00 77 11/29/16 19:00 99.1 82 20 156/72 93 Nasal Cannula 2.0 11/29/16 17:00 78 162/77 11/29/16 16:00 76 11/29/16 16:00 98.2 78 20 162/77 91 Nasal Cannula 2.0 Intake and Output 11/29/16 11/30/16 19:00 07:00 Intake Total 520 ml 240 ml Output Total 350 ml 600 ml Balance 170 ml -360 ml Intake Oral 520 ml 240 ml Output Urine Total 350 ml 600 ml # Voids 4 Laboratory Tests 11/30/16 03:30: Urine Eosinophils None seen 11/30/16 06:55: White Blood Count 7.2, Red Blood Count 3.03L, Hemoglobin 9.8L, Hematocrit 29.0L , Mean Corpuscular Volume 96, Mean Corpuscular Hemoglobin 32.4H, Mean Corpuscular Hemoglobin Concent 33.8, Red Cell Distribution Width 12.9, Platelet Count 125L, Mean Platelet Volume 6.6, Neutrophils (%) (Auto) 66.9, Lymphocytes ( %) (Auto) 16.7L, Monocytes (%) (Auto) 12.8H, Eosinophils (%) (Auto) 3.0, Basophils (%) (Auto) 0.6, Sodium Level 139, Potassium Level 4.2, Chloride Level 104, Carbon Dioxide Level 17L, Anion Gap 18H, Blood Urea Nitrogen 49H, Creatinine 4.4H, Estimat Glomerular Filtration Rate , Glucose Level 94, Uric Acid 10.7H, Calcium Level 8.5L, Phosphorus Level 3.0, Total Bilirubin 0.7, Gamma Glutamyl Transpeptidase 70H, Aspartate Amino Transf (AST/SGOT) 12, Alanine Aminotransferase (ALT/SGPT) 18, Alkaline Phosphatase 79, Pro-B-Type Natriuretic Peptide 18203R, Total Protein 5.5L, Albumin 3.1L, Globulin 2.4, Albumin/Globulin Ratio 1.2 Height (Feet): 5 Height (Inches): 7.00 Weight (Pounds): 160 General Appearance: no apparent distress, lethargic Neck: stiff neck Cardiovascular: regular rhythm Respiratory/Chest: decreased breath sounds Abdomen: distended, tender - 3/10 lower Quads Objective other PE not changed CHECO SALAZAR Nov 30, 2016 14:06
--- NOTE | 2016-11-30 14:34 | Pulmonology Progress Note ---
Assessment/Plan Problems: (1) Interstitial lung disease (2) COPD (chronic obstructive pulmonary disease) (3) Chronic renal failure (4) ESRD (end stage renal disease) on dialysis (5) CVA (cerebral infarction) Assessment/Plan respiratory treatment titrate fio2 ct chest pending renal w/u in progress Subjective ROS Limited/Unobtainable: No Interval Events: later entery for Feb1 Constitutional: Reports: no symptoms HEENT: Repors: no symptoms Respiratory: Reports: shortness of breath Allergies: Coded Allergies: No Known Allergies (Unverified , 12/16/14) Objective Last 24 Hour Vital Signs Date Time Temp Pulse Resp B/P Pulse Ox O2 Delivery O2 Flow Rate FiO2 11/30/16 09:17 55 123/48 11/30/16 08:00 44 11/30/16 08:00 97.2 55 17 125/48 95 Nasal Cannula 2.0 55 11/30/16 04:08 97.9 61 19 141/60 98 Nasal Cannula 2.0 11/30/16 04:00 68 11/30/16 00:30 99.6 11/30/16 00:21 99.6 11/30/16 00:09 100.4 80 20 151/59 98 Nasal Cannula 2.0 11/30/16 00:00 73 11/29/16 21:17 80 152/74 11/29/16 20:00 77 11/29/16 19:00 99.1 82 20 156/72 93 Nasal Cannula 2.0 11/29/16 17:00 78 162/77 11/29/16 16:00 76 11/29/16 16:00 98.2 78 20 162/77 91 Nasal Cannula 2.0 Intake and Output 11/29/16 11/30/16 19:00 07:00 Intake Total 520 ml 240 ml Output Total 350 ml 600 ml Balance 170 ml -360 ml Intake Oral 520 ml 240 ml Output Urine Total 350 ml 600 ml # Voids 4 General Appearance: WD/WN Respiratory/Chest: chest wall non-tender, normal breath sounds Cardiovascular: normal rate Abdomen: normal bowel sounds, soft, non tender Genitourinary: normal external genitalia Extremities: no cyanosis Skin: no rash Neurologic/Psychiatric: quality assurance lead II-XII grossly normal, no motor/sensory deficits Lymphatic: no neck adenopathy Microbiology Date/Time Source Procedure Growth Status 11/28/16 12:00 Blood Blood Culture - Preliminary NO GROWTH AFTER 24 HOURS Resulted 11/28/16 11:45 Blood Blood Culture - Preliminary NO GROWTH AFTER 24 HOURS Resulted Laboratory Tests 11/30/16 03:30: Urine Eosinophils None seen 11/30/16 06:55: White Blood Count 7.2, Red Blood Count 3.03L, Hemoglobin 9.8L, Hematocrit 29.0L , Mean Corpuscular Volume 96, Mean Corpuscular Hemoglobin 32.4H, Mean Corpuscular Hemoglobin Concent 33.8, Red Cell Distribution Width 12.9, Platelet Count 125L, Mean Platelet Volume 6.6, Neutrophils (%) (Auto) 66.9, Lymphocytes ( %) (Auto) 16.7L, Monocytes (%) (Auto) 12.8H, Eosinophils (%) (Auto) 3.0, Basophils (%) (Auto) 0.6, Sodium Level 139, Potassium Level 4.2, Chloride Level 104, Carbon Dioxide Level 17L, Anion Gap 18H, Blood Urea Nitrogen 49H, Creatinine 4.4H, Estimat Glomerular Filtration Rate , Glucose Level 94, Uric Acid 10.7H, Calcium Level 8.5L, Phosphorus Level 3.0, Total Bilirubin 0.7, Gamma Glutamyl Transpeptidase 70H, Aspartate Amino Transf (AST/SGOT) 12, Alanine Aminotransferase (ALT/SGPT) 18, Alkaline Phosphatase 79, Pro-B-Type Natriuretic Peptide 15017U, Total Protein 5.5L, Albumin 3.1L, Globulin 2.4, Albumin/Globulin Ratio 1.2 Current Medications Medications (Trade) Dose Ordered Sig/Kris Route PRN Reason Start Time Stop Time Status Last Admin Dose Admin Acetaminophen (Tylenol) 650 mg Q4H PRN ORAL Mild Pain/Temp > 100.5 11/28/16 16:45 12/28/16 16:44 11/29/16 23:22 Acetaminophen (Tylenol) 650 mg QID ORAL 11/30/16 18:00 12/30/16 17:59 Allopurinol 100 mg 100 mg DAILY ORAL 11/30/16 14:00 12/30/16 13:59 Amlodipine Besylate (Norvasc) 5 mg BID ORAL 11/28/16 18:00 12/28/16 17:59 11/30/16 09:17 Aspirin (Ecotrin) 81 mg DAILY ORAL 11/29/16 09:00 3/3/17 08:59 11/30/16 09:15 Docusate Sodium (Colace) 100 mg THREE TIMES A DAY ORAL 11/30/16 18:00 12/30/16 17:59 Epoetin Issa (Procrit (for non ESRD use)) 10,000 units MON-WED-SUN SUBQ 11/29/16 21:00 12/29/16 20:59 11/29/16 21:16 Finasteride (Proscar) 5 mg DAILY ORAL 11/29/16 09:00 12/29/16 08:59 11/30/16 09:15 Heparin Sodium (Porcine) (Heparin 5000 units/ml) 5,000 units EVERY 12 HOURS SUBQ 11/28/16 21:00 12/28/16 20:59 11/29/16 21:18 Iron Sucrose/ Sodium Chloride (Venofer/Sodium Chloride) 120 ml @ 240 mls/hr ONCE ONCE IVPB 11/30/16 16:00 11/30/16 16:29 Mirtazapine (Remeron) 15 mg BEDTIME ORAL 11/30/16 21:00 12/30/16 20:59 Ondansetron HCl (Zofran) 4 mg Q6H PRN IVP Nausea & Vomiting 11/28/16 16:45 12/28/16 16:44 Pantoprazole (Protonix) 40 mg ACBREAKFAST ORAL 11/28/16 16:30 12/28/16 16:29 11/30/16 06:06 Risperidone (RisperDAL) 0.25 mg QHS ORAL 12/01/16 21:00 12/31/16 20:59 Tamsulosin HCl (Flomax) 0.4 mg TWICE A DAY ORAL 11/28/16 18:00 12/28/16 17:59 11/30/16 09:17 Terazosin HCl (Hytrin) 1 mg BEDTIME ORAL 11/30/16 21:00 12/30/16 20:59 BRITT CASEY Nov 30, 2016 14:33
--- NOTE | 2016-11-30 14:35 | Pulmonology Progress Note ---
Assessment/Plan Problems: (1) Interstitial lung disease (2) COPD (chronic obstructive pulmonary disease) (3) Chronic renal failure (4) ESRD (end stage renal disease) on dialysis (5) CVA (cerebral infarction) Assessment/Plan CT chest reviewed extensive bullous disease and intertitial lung disease respiratory treatment titrate fio2 ct chest pending renal w/u in progress Subjective Interval Events: still short of breath Respiratory: Reports: shortness of breath Allergies: Coded Allergies: No Known Allergies (Unverified , 12/16/14) Objective Last 24 Hour Vital Signs Date Time Temp Pulse Resp B/P Pulse Ox O2 Delivery O2 Flow Rate FiO2 11/30/16 09:17 55 123/48 11/30/16 08:00 44 11/30/16 08:00 97.2 55 17 125/48 95 Nasal Cannula 2.0 55 11/30/16 04:08 97.9 61 19 141/60 98 Nasal Cannula 2.0 11/30/16 04:00 68 11/30/16 00:30 99.6 11/30/16 00:21 99.6 11/30/16 00:09 100.4 80 20 151/59 98 Nasal Cannula 2.0 11/30/16 00:00 73 11/29/16 21:17 80 152/74 11/29/16 20:00 77 11/29/16 19:00 99.1 82 20 156/72 93 Nasal Cannula 2.0 11/29/16 17:00 78 162/77 11/29/16 16:00 76 11/29/16 16:00 98.2 78 20 162/77 91 Nasal Cannula 2.0 Intake and Output 11/29/16 11/30/16 19:00 07:00 Intake Total 520 ml 240 ml Output Total 350 ml 600 ml Balance 170 ml -360 ml Intake Oral 520 ml 240 ml Output Urine Total 350 ml 600 ml # Voids 4 General Appearance: WD/WN HEENT: normocephalic Respiratory/Chest: chest wall non-tender, normal breath sounds Abdomen: normal bowel sounds, no organomegaly Extremities: no cyanosis Microbiology Date/Time Source Procedure Growth Status 11/28/16 12:00 Blood Blood Culture - Preliminary NO GROWTH AFTER 24 HOURS Resulted 11/28/16 11:45 Blood Blood Culture - Preliminary NO GROWTH AFTER 24 HOURS Resulted Laboratory Tests 11/30/16 03:30: Urine Eosinophils None seen 11/30/16 06:55: White Blood Count 7.2, Red Blood Count 3.03L, Hemoglobin 9.8L, Hematocrit 29.0L , Mean Corpuscular Volume 96, Mean Corpuscular Hemoglobin 32.4H, Mean Corpuscular Hemoglobin Concent 33.8, Red Cell Distribution Width 12.9, Platelet Count 125L, Mean Platelet Volume 6.6, Neutrophils (%) (Auto) 66.9, Lymphocytes ( %) (Auto) 16.7L, Monocytes (%) (Auto) 12.8H, Eosinophils (%) (Auto) 3.0, Basophils (%) (Auto) 0.6, Sodium Level 139, Potassium Level 4.2, Chloride Level 104, Carbon Dioxide Level 17L, Anion Gap 18H, Blood Urea Nitrogen 49H, Creatinine 4.4H, Estimat Glomerular Filtration Rate , Glucose Level 94, Uric Acid 10.7H, Calcium Level 8.5L, Phosphorus Level 3.0, Total Bilirubin 0.7, Gamma Glutamyl Transpeptidase 70H, Aspartate Amino Transf (AST/SGOT) 12, Alanine Aminotransferase (ALT/SGPT) 18, Alkaline Phosphatase 79, Pro-B-Type Natriuretic Peptide 25131X, Total Protein 5.5L, Albumin 3.1L, Globulin 2.4, Albumin/Globulin Ratio 1.2 Current Medications Medications (Trade) Dose Ordered Sig/Kris Route PRN Reason Start Time Stop Time Status Last Admin Dose Admin Acetaminophen (Tylenol) 650 mg Q4H PRN ORAL Mild Pain/Temp > 100.5 11/28/16 16:45 12/28/16 16:44 11/29/16 23:22 Acetaminophen (Tylenol) 650 mg QID ORAL 11/30/16 18:00 12/30/16 17:59 Allopurinol 100 mg 100 mg DAILY ORAL 11/30/16 14:00 12/30/16 13:59 Amlodipine Besylate (Norvasc) 5 mg BID ORAL 11/28/16 18:00 12/28/16 17:59 11/30/16 09:17 Aspirin (Ecotrin) 81 mg DAILY ORAL 11/29/16 09:00 12/29/16 08:59 11/30/16 09:15 Docusate Sodium (Colace) 100 mg THREE TIMES A DAY ORAL 11/30/16 18:00 12/30/16 17:59 Epoetin Issa (Procrit (for non ESRD use)) 10,000 units MON-WED-SUN SUBQ 11/29/16 21:00 12/29/16 20:59 11/29/16 21:16 Finasteride (Proscar) 5 mg DAILY ORAL 11/29/16 09:00 12/29/16 08:59 11/30/16 09:15 Heparin Sodium (Porcine) (Heparin 5000 units/ml) 5,000 units EVERY 12 HOURS SUBQ 11/28/16 21:00 12/28/16 20:59 11/29/16 21:18 Iron Sucrose/ Sodium Chloride (Venofer/Sodium Chloride) 120 ml @ 240 mls/hr ONCE ONCE IVPB 11/30/16 16:00 11/30/16 16:29 Mirtazapine (Remeron) 15 mg BEDTIME ORAL 11/30/16 21:00 12/30/16 20:59 Ondansetron HCl (Zofran) 4 mg Q6H PRN IVP Nausea & Vomiting 11/28/16 16:45 12/28/16 16:44 Pantoprazole (Protonix) 40 mg ACBREAKFAST ORAL 11/28/16 16:30 12/28/16 16:29 11/30/16 06:06 Risperidone (RisperDAL) 0.25 mg QHS ORAL 12/01/16 21:00 12/31/16 20:59 Tamsulosin HCl (Flomax) 0.4 mg TWICE A DAY ORAL 11/28/16 18:00 12/28/16 17:59 11/30/16 09:17 Terazosin HCl (Hytrin) 1 mg BEDTIME ORAL 11/30/16 21:00 12/30/16 20:59 BRITT CASEY Nov 30, 2016 14:35
[2016-11-30] MEDS: Allopurinol 100mg Tab ORAL SCH (14:40)
[2016-11-30 16:00] VITALS: BP 108/44
[2016-11-30] MEDS ORDERED: Iron Sucrose 200 MG in NS 110 ML IVPB ONE (16:00)
[2016-11-30] MEDS: Docusate 100mg cap ORAL SCH (17:48)
--- NOTE | 2016-11-30 18:33 | Cardiology Progress Note ---
Assessment/Plan Assessment/Plan exertion dyspnea / diastolic failure ? 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 anticoag for now heparin i have discussed the need for anticoag via one of [place] speaking staff and explained risk of bleeding Subjective Cardiovascular: Denies: chest pain, lightheadedness Respiratory: Denies: SOB with excertion Gastrointestinal/Abdominal: Reports: abdominal pain Genitourinary: Denies: burning Objective Last 24 Hour Vital Signs Date Time Temp Pulse Resp B/P Pulse Ox O2 Delivery O2 Flow Rate FiO2 11/30/16 17:49 63 108/44 11/30/16 16:00 97.7 63 20 108/44 93 Nasal Cannula 2.0 11/30/16 12:00 59 11/30/16 12:00 96.8 63 17 134/66 95 Room Air 62 11/30/16 09:17 55 123/48 11/30/16 08:00 44 11/30/16 08:00 97.2 55 17 125/48 95 Nasal Cannula 2.0 55 11/30/16 04:08 97.9 61 19 141/60 98 Nasal Cannula 2.0 11/30/16 04:00 68 11/30/16 00:30 99.6 11/30/16 00:21 99.6 11/30/16 00:09 100.4 80 20 151/59 98 Nasal Cannula 2.0 11/30/16 00:00 73 11/29/16 21:17 80 152/74 11/29/16 20:00 77 11/29/16 19:00 99.1 82 20 156/72 93 Nasal Cannula 2.0 General Appearance: no apparent distress, alert Neck: no JVD Cardiovascular: bradycardia, irregularly irregular Respiratory/Chest: lungs clear Abdomen: normal bowel sounds, non tender, soft Extremities: no swelling Intake and Output 11/29/16 11/30/16 19:00 07:00 Intake Total 520 ml 240 ml Output Total 350 ml 600 ml Balance 170 ml -360 ml Intake Oral 520 ml 240 ml Output Urine Total 350 ml 600 ml # Voids 4 Laboratory Tests Test 11/30/16 03:30 11/30/16 06:55 Urine Eosinophils None seen White Blood Count 7.2 K/UL (4.8-10.8) Red Blood Count 3.03 M/UL (4.70-6.10) L Hemoglobin 9.8 G/DL (14.2-18.0) L Hematocrit 29.0 % (42.0-52.0) L Mean Corpuscular Volume 96 FL (80-99) Mean Corpuscular Hemoglobin 32.4 PG (27.0-31.0) H Mean Corpuscular Hemoglobin Concent 33.8 G/DL (32.0-36.0) Red Cell Distribution Width 12.9 % (11.6-14.8) Platelet Count 125 K/UL (150-450) L Mean Platelet Volume 6.6 FL (6.5-10.1) Neutrophils (%) (Auto) 66.9 % (45.0-75.0) Lymphocytes (%) (Auto) 16.7 % (20.0-45.0) L Monocytes (%) (Auto) 12.8 % (1.0-10.0) H Eosinophils (%) (Auto) 3.0 % (0.0-3.0) Basophils (%) (Auto) 0.6 % (0.0-2.0) Sodium Level 139 mEQ/L (135-145) Potassium Level 4.2 mEQ/L (3.4-4.9) Chloride Level 104 mEQ/L (98-107) Carbon Dioxide Level 17 mEQ/L (20-30) L Anion Gap 18 (5-15) H Blood Urea Nitrogen 49 mg/dL (7-23) H Creatinine 4.4 mg/dL (0.7-1.2) H Estimat Glomerular Filtration Rate mL/min (>60) Glucose Level 94 mg/dL (74-106) Uric Acid 10.7 mg/dL (3.0-7.5) H Calcium Level 8.5 mg/dL (8.6-10.2) L Phosphorus Level 3.0 mg/dL (2.5-4.8) Total Bilirubin 0.7 mg/dL (0.0-1.2) Gamma Glutamyl Transpeptidase 70 U/L (8-61) H Aspartate Amino Transf (AST/SGOT) 12 U/L (5-40) Alanine Aminotransferase (ALT/SGPT) 18 U/L (3-41) Alkaline Phosphatase 79 U/L (40-129) Pro-B-Type Natriuretic Peptide 29772 pg/mL (0-450) H Total Protein 5.5 g/dL (6.6-8.7) L Albumin 3.1 g/dL (3.5-5.2) L Globulin 2.4 g/dL Albumin/Globulin Ratio 1.2 (1.0-2.7) Microbiology Date/Time Source Procedure Growth Status 11/28/16 12:00 Blood Blood Culture - Preliminary NO GROWTH AFTER 24 HOURS Resulted 11/28/16 11:45 Blood Blood Culture - Preliminary NO GROWTH AFTER 24 HOURS Resulted DARBY MARIE Nov 30, 2016 18:33
[2016-11-30 19:31] LABS: BASOPHILS % (AUTO) 0.8 % (0.0-2.0); EOSINOPHILS % (AUTO) 4.4 % (0.0-3.0); MEAN CORPUSCULAR HEMOGLOBIN 32.5 PG (27.0-31.0); MEAN CORPUSCULAR HGB CONC 33.3 G/DL (32.0-36.0); MEAN CORPUSCULAR VOLUME 98 FL (80-99); MEAN PLATELET VOLUME 6.9 FL (6.5-10.1); MONOCYTES % (AUTO) 11.8 % (1.0-10.0); PLATELET COUNT 129 K/UL (150-450); RED BLOOD COUNT 2.94 M/UL (4.70-6.10); RED CELL DISTRIBUTION WIDTH 12.7 % (11.6-14.8); WHITE BLOOD COUNT 6.9 K/UL (4.8-10.8)
[2016-11-30 20:00] VITALS: BP 139/57
[2016-11-30] MEDS ORDERED: Heparin 5000 units/ml inj IV ONE (20:00)
[2016-11-30] MEDS ORDERED: Heparin 25,000u/D5W 500ml 500 ML IV SCH ×2 (20:00)
[2016-11-30] MEDS: Terazosin 1mg cap ORAL SCH (20:16)
[2016-12-01 00:19] VITALS: BP 142/58
[2016-12-01 03:17] LABS: BASOPHILS % (AUTO) 0.6 % (0.0-2.0); EOSINOPHILS % (AUTO) 7.7 % (0.0-3.0); MEAN CORPUSCULAR HEMOGLOBIN 32.6 PG (27.0-31.0); MEAN CORPUSCULAR HGB CONC 33.8 G/DL (32.0-36.0); MEAN CORPUSCULAR VOLUME 96 FL (80-99); MEAN PLATELET VOLUME 6.1 FL (6.5-10.1); MONOCYTES % (AUTO) 12.1 % (1.0-10.0); NEUTROPHILS % (AUTO) 57.6 % (45.0-75.0); PLATELET COUNT 132 K/UL (150-450); RED BLOOD COUNT 2.91 M/UL (4.70-6.10); RED CELL DISTRIBUTION WIDTH 13.1 % (11.6-14.8); WHITE BLOOD COUNT 5.8 K/UL (4.8-10.8)
[2016-12-01 03:40] LABS: ALANINE AMINOTRANSFERASE 19 U/L (3-41); ANION GAP 16 (5-15); ASPARTATE AMINO TRANSFERASE 16 U/L (5-40); CALCIUM 8.5 mg/dL (8.6-10.2); CARBON DIOXIDE 16 mEQ/L (20-30); CHLORIDE 107 mEQ/L (98-107); CREATININE 4.5 mg/dL (0.7-1.2); HEMOLYSIS 12; PHOSPHORUS 4.1 mg/dL (2.5-4.8); POTASSIUM 4.3 mEQ/L (3.4-4.9); SODIUM 139 mEQ/L (135-145); TOTAL PROTEIN 5.4 g/dL (6.6-8.7)
[2016-12-01 04:14] VITALS: BP 143/73
[2016-12-01] MEDS ORDERED: Heparin 5000 units/ml inj IV ONE (05:00)
[2016-12-01] MEDS: Heparin 25,000u/D5W 500ml 500 ML IV SCH ×2 (05:08→19:25)
[2016-12-01 08:00] VITALS: BP 145/71
[2016-12-01] MEDS: Docusate 100mg cap ORAL SCH ×3 (09:45→17:31)
[2016-12-01] MEDS: Aspirin EC 81mg tab ORAL SCH (09:45)
[2016-12-01] MEDS: Tamsulosin 0.4mg cap ORAL SCH ×2 (09:46→17:31)
[2016-12-01] MEDS: Allopurinol 100mg Tab ORAL SCH (09:46)
--- NOTE | 2016-12-01 10:12 | Consultation ---
Consult Note Consult Note Cardiac EP Full consult dictated #[id number] TEOFILO REED Dec 01, 2016 10:12
[2016-12-01 12:00] VITALS: BP 139/82
--- NOTE | 2016-12-01 13:52 | General Progress Note ---
Assessment/Plan Status: stable Status Narrative worsening Cr to 4.5 Assessment/Plan 1. Acute on chronic renal failure. 2. Pulmonary symptoms are most likely secondary to volume overload and congestive heart failure. CT: Bilateral upper lobe emphysematous changes/fibrosis. Background groundglass opacity is nonspecific and may represent superimposed acute pulmonary edema. 3. History of multi-infarct brain disease. 4. Hypertension./ Pulmonary HTN 5. Coronary artery disease and history of cardiac arrhythmia. 6. Anemia 7. At fib with low VR Plan: Epogen- Venofer- Laxative- add hytrin HS monitor renal parameters consider dialysis if Cr worsens per cardio, EP eval, Heparin HD in am Subjective ROS Limited/Unobtainable: No Constitutional: Reports: malaise Allergies: Coded Allergies: No Known Allergies (Unverified , 12/16/14) Objective Last 24 Hour Vital Signs Date Time Temp Pulse Resp B/P Pulse Ox O2 Delivery O2 Flow Rate FiO2 12/01/16 12:33 73 12/01/16 12:00 96.9 78 17 139/82 98 Room Air 78 12/01/16 10:46 96.8 12/01/16 09:46 73 145/71 12/01/16 08:12 70 12/01/16 08:00 96.8 71 16 145/71 95 Room Air 73 12/01/16 04:14 97.8 58 20 143/73 96 Nasal Cannula 12/01/16 04:00 62 12/01/16 00:19 97.3 60 19 142/58 94 Room Air 12/01/16 00:00 67 11/30/16 20:00 57 11/30/16 20:00 97.7 68 20 139/57 94 Nasal Cannula 2.0 11/30/16 17:49 63 108/44 11/30/16 16:00 66 11/30/16 16:00 97.7 63 20 108/44 93 Nasal Cannula 2.0 Intake and Output 11/30/16 12/01/16 19:00 07:00 Intake Total 640 ml 519.735 ml Output Total 460 ml 750 ml Balance 180 ml -230.265 ml Intake Oral 640 ml 260 ml IV Total 259.735 ml Output Urine Total 460 ml 750 ml # Voids 2 Laboratory Tests 11/30/16 19:00: White Blood Count 6.9, Red Blood Count 2.94L, Hemoglobin 9.6L, Hematocrit 28.7L , Mean Corpuscular Volume 98, Mean Corpuscular Hemoglobin 32.5H, Mean Corpuscular Hemoglobin Concent 33.3, Red Cell Distribution Width 12.7, Platelet Count 129L, Mean Platelet Volume 6.9, Neutrophils (%) (Auto) 66.0, Lymphocytes ( %) (Auto) 17.0L, Monocytes (%) (Auto) 11.8H, Eosinophils (%) (Auto) 4.4H, Basophils (%) (Auto) 0.8, Activated Partial Thromboplast Time 36H 12/01/16 00:50: Urine Eosinophils None seen 12/01/16 02:35: White Blood Count 5.8, Red Blood Count 2.91L, Hemoglobin 9.5L, Hematocrit 28.1L , Mean Corpuscular Volume 96, Mean Corpuscular Hemoglobin 32.6H, Mean Corpuscular Hemoglobin Concent 33.8, Red Cell Distribution Width 13.1, Platelet Count 132L, Mean Platelet Volume 6.1L, Neutrophils (%) (Auto) 57.6, Lymphocytes (%) (Auto) 22.0, Monocytes (%) (Auto) 12.1H, Eosinophils (%) (Auto) 7.7H, Basophils (%) (Auto) 0.6, Activated Partial Thromboplast Time 59H, Sodium Level 139, Potassium Level 4.3, Chloride Level 107, Carbon Dioxide Level 16L, Anion Gap 16H, Blood Urea Nitrogen 53H, Creatinine 4.5H, Estimat Glomerular Filtration Rate , Glucose Level 102, Calcium Level 8.5L, Phosphorus Level 4.1, Total Bilirubin 0.3, Aspartate Amino Transf (AST/SGOT) 16, Alanine Aminotransferase (ALT/SGPT) 19, Alkaline Phosphatase 85, Total Protein 5.4L, Albumin 2.7L, Globulin 2.7, Albumin/Globulin Ratio 1.0 12/01/16 11:30: Activated Partial Thromboplast Time 81H Height (Feet): 5 Height (Inches): 7.00 Weight (Pounds): 160 General Appearance: no apparent distress Cardiovascular: normal rate, bradycardia - at times, arrhythmia - ? Respiratory/Chest: decreased breath sounds Abdomen: soft, other - had BM yesterday Edema: no edema noted Arm (L), no edema noted Arm (R), no edema noted Leg (L), no edema noted Leg (R), no edema noted Pedal (L), no edema noted Pedal (R), no edema noted Generalized Objective other PE not changed CHECO SALAZAR Dec 01, 2016 13:52
[2016-12-01 16:00] VITALS: BP 137/55
--- NOTE | 2016-12-01 16:07 | Consultation ---
DATE OF CONSULTATION: 12/01/2016 CARDIAC ELECTROPHYSIOLOGY CONSULTATION CONSULTING PHYSICIAN: Kyra Barillas M.D. REFERRING PHYSICIAN: Marko Thakkar M.D. REASON FOR CONSULT: Bradycardia. HISTORY OF PRESENT ILLNESS: The patient is an 81-year-old Persian man with a history of hypertension and chronic kidney disease and also coronary artery disease who presented with exertional dyspnea and chest pain. He also has a cough productive of clear mucus in small amounts. He was admitted to telemetry and developed atrial fibrillation. Ventricular rates and atrial fibrillation were slow in the 50s and he also had an up to 2.6-second pause. He remains in atrial fibrillation currently with rates in the 60s. He denies any history of dizziness, lightheadedness, or syncope. MEDICATIONS: Risperdal 0.25 mg at bedtime; Hytrin 1 mg at bedtime; Remeron 15 mg at bedtime; Tylenol p.r.n.; Colace p.r.n.; allopurinol 100 mg daily; Epogen 99175 units Sunday, Sunday, and Sunday; aspirin 81 mg daily; Proscar 5 mg daily; amlodipine 5 mg twice daily, Flomax 0.4 mg twice daily, Zofran p.r.n., and Protonix 40 mg daily. ALLERGIES: No known drug allergies. PAST MEDICAL HISTORY: As noted above. Chronic kidney disease stage 3, history of partial nephrectomy ([facility], details not available), history of previous cerebrovascular accidents, cognitive dysfunction, history of chronic obstructive pulmonary disease, and paroxysmal atrial fibrillation. SOCIAL HISTORY: He is a nonsmoker. He does not drink alcohol. PHYSICAL EXAMINATION: VITAL SIGNS: Blood pressure is 145/71; pulse 73, irregularly irregular; respirations 20; and afebrile. GENERAL: Alert, elderly appearing Persian man, in no acute distress. HEENT: Normocephalic and atraumatic. Pupils are equal, round, and reactive to light. Sclerae anicteric. Oral mucosa moist. NECK: Supple. There is no jugular venous distention. No carotid bruits. LUNGS: Clear to auscultation bilaterally. HEART: Irregularly irregular. S1 and S2. No murmurs or S3. ABDOMEN: Soft and nontender. No palpable mass. Healed surgical scars. EXTREMITIES: No cyanosis, clubbing, or edema. 2+ dorsalis pedis pulses bilaterally. SKIN: No rashes or lesions. LABORATORY DATA: Hemoglobin 9.5, hematocrit 21, white blood count 5800, and platelets 132,000. Potassium 4.3, BUN 53, and creatinine 4.5. INR 1.2. EKG on admission showed sinus rhythm. EKG shows atrial fibrillation with a ventricular rate of 56 beats per minute. [place] [address]-segment or T-wave changes. Chest x-ray shows cardiomegaly and bilateral interstitial opacities and small left pleural effusion. Echo shows an ejection fraction of 55% to 60%; mild left ventricular hypertrophy; small posterior pericardial effusion; tricuspid regurgitation, mild; and PA pressure of 63, consistent with severe pulmonary hypertension. ASSESSMENT AND RECOMMENDATIONS: The patient is an 81-year-old man with chronic kidney disease, hypertension, and paroxysmal atrial fibrillation who was admitted with shortness of breath and chest pain. He has interstitial edema, possibly volume overload in the setting of renal failure. He was in sinus rhythm on admission, but developed atrial fibrillation with relatively slow ventricular rates and short pauses; however, he is asymptomatic with regard to his arrhythmia. I would recommend continued telemetry monitoring and we would avoid all negative chronotropic and dromotropic agents. He may require permanent pacing in the future, but at this time, as he does not have symptomatic bradycardia or prolonged pauses in atrial fibrillation, he does not meet criteria for permanent pacing. Thank you for allowing me to see him in cardiac electrophysiology consultation. I will be happy to follow him with you. Kyra Barillas M.D. DR: OLIVER JOB#: [id number] CC:
[2016-12-01 20:00] VITALS: BP 150/72
--- NOTE | 2016-12-01 20:28 | Cardiology Progress Note ---
Assessment/Plan Assessment/Plan exertion dyspnea / diastolic failure ? systemic htn ckd advanced paf no win afib bradycardia likley sinsu / avn diseae pulmonary htn s/p cea s/p resection of ?kidney and partial y of liver and stomach (all per pt report ) lv fxn normal echo noted repeat torp neg will need outpt fu converted to afib and has persisted in afib vr is slow ep did nto feel pacer indicated at this time i have discussed the need for anticoag via one of [place] speaking staff and explained risk of bleeding will star nasim sanchez in am dc heparin home sun / sunday if able to get meds Subjective Cardiovascular: Denies: chest pain Respiratory: Denies: shortness of breath Genitourinary: Denies: burning Objective Last 24 Hour Vital Signs Date Time Temp Pulse Resp B/P Pulse Ox O2 Delivery O2 Flow Rate FiO2 12/01/16 17:31 67 137/55 12/01/16 16:00 60 12/01/16 16:00 98.1 67 20 137/55 98 Nasal Cannula 2.0 12/01/16 13:51 96.8 12/01/16 12:33 73 12/01/16 12:00 96.9 78 17 139/82 98 Room Air 78 12/01/16 09:46 73 145/71 12/01/16 08:12 70 12/01/16 08:00 96.8 71 16 145/71 95 Room Air 73 12/01/16 04:14 97.8 58 20 143/73 96 Nasal Cannula 12/01/16 04:00 62 12/01/16 00:19 97.3 60 19 142/58 94 Room Air 12/01/16 00:00 67 General Appearance: no apparent distress, alert Neck: no JVD Cardiovascular: normal rate, regular rhythm Respiratory/Chest: lungs clear, normal breath sounds Abdomen: normal bowel sounds, non tender, soft Extremities: no swelling Intake and Output 11/30/16 12/01/16 19:00 07:00 Intake Total 640 ml 519.735 ml Output Total 460 ml 750 ml Balance 180 ml -230.265 ml Intake Oral 640 ml 260 ml IV Total 259.735 ml Output Urine Total 460 ml 750 ml # Voids 2 Laboratory Tests Test 12/01/16 00:50 12/01/16 02:35 12/01/16 11:30 Urine Eosinophils None seen White Blood Count 5.8 K/UL (4.8-10.8) Red Blood Count 2.91 M/UL (4.70-6.10) L Hemoglobin 9.5 G/DL (14.2-18.0) L Hematocrit 28.1 % (42.0-52.0) L Mean Corpuscular Volume 96 FL (80-99) Mean Corpuscular Hemoglobin 32.6 PG (27.0-31.0) H Mean Corpuscular Hemoglobin Concent 33.8 G/DL (32.0-36.0) Red Cell Distribution Width 13.1 % (11.6-14.8) Platelet Count 132 K/UL (150-450) L Mean Platelet Volume 6.1 FL (6.5-10.1) L Neutrophils (%) (Auto) 57.6 % (45.0-75.0) Lymphocytes (%) (Auto) 22.0 % (20.0-45.0) Monocytes (%) (Auto) 12.1 % (1.0-10.0) H Eosinophils (%) (Auto) 7.7 % (0.0-3.0) H Basophils (%) (Auto) 0.6 % (0.0-2.0) Activated Partial Thromboplast Time 59 SEC (23-33) H 81 SEC (23-33) H Sodium Level 139 mEQ/L (135-145) Potassium Level 4.3 mEQ/L (3.4-4.9) Chloride Level 107 mEQ/L (98-107) Carbon Dioxide Level 16 mEQ/L (20-30) L Anion Gap 16 (5-15) H Blood Urea Nitrogen 53 mg/dL (7-23) H Creatinine 4.5 mg/dL (0.7-1.2) H Estimat Glomerular Filtration Rate mL/min (>60) Glucose Level 102 mg/dL (74-106) Calcium Level 8.5 mg/dL (8.6-10.2) L Phosphorus Level 4.1 mg/dL (2.5-4.8) Total Bilirubin 0.3 mg/dL (0.0-1.2) Aspartate Amino Transf (AST/SGOT) 16 U/L (5-40) Alanine Aminotransferase (ALT/SGPT) 19 U/L (3-41) Alkaline Phosphatase 85 U/L (40-129) Total Protein 5.4 g/dL (6.6-8.7) L Albumin 2.7 g/dL (3.5-5.2) L Globulin 2.7 g/dL Albumin/Globulin Ratio 1.0 (1.0-2.7) DARBY MARIE Dec 01, 2016 20:28
[2016-12-01] MEDS: Terazosin 1mg cap ORAL SCH (21:03)
[2016-12-01] MEDS: RisperiDONE 0.25mg tab ORAL SCH (21:04)
[2016-12-01] MEDS: Epogen (for non ESRD use) SUBQ SCH (21:04)
[2016-12-02] VITALS (8 sets, daily range): BP systolic 120–172; BP diastolic 51–85
[2016-12-02 05:02] LABS: BASOPHILS % (AUTO) 0.8 % (0.0-2.0); EOSINOPHILS % (AUTO) 8.4 % (0.0-3.0); LYMPHOCYTES % (AUTO) 18.1 % (20.0-45.0); MEAN CORPUSCULAR HEMOGLOBIN 31.7 PG (27.0-31.0); MEAN CORPUSCULAR HGB CONC 33.2 G/DL (32.0-36.0); MEAN CORPUSCULAR VOLUME 95 FL (80-99); MEAN PLATELET VOLUME 6.2 FL (6.5-10.1); MONOCYTES % (AUTO) 9.5 % (1.0-10.0); NEUTROPHILS % (AUTO) 63.4 % (45.0-75.0); PLATELET COUNT 153 K/UL (150-450); RED BLOOD COUNT 2.91 M/UL (4.70-6.10); RED CELL DISTRIBUTION WIDTH 12.9 % (11.6-14.8); WHITE BLOOD COUNT 6.1 K/UL (4.8-10.8)
[2016-12-02 05:22] LABS: ALANINE AMINOTRANSFERASE 28 U/L (3-41); ALBUMIN/GLOBULIN RATIO 1.2 (1.0-2.7); ANION GAP 19 (5-15); ASPARTATE AMINO TRANSFERASE 22 U/L (5-40); CALCIUM 8.4 mg/dL (8.6-10.2); CARBON DIOXIDE 16 mEQ/L (20-30); CHLORIDE 103 mEQ/L (98-107); CREATININE 4.4 mg/dL (0.7-1.2); HEMOLYSIS 5; PHOSPHORUS 4.6 mg/dL (2.5-4.8); POTASSIUM 4.2 mEQ/L (3.4-4.9); SODIUM 138 mEQ/L (135-145); TOTAL PROTEIN 5.7 g/dL (6.6-8.7); URIC ACID 10.3 mg/dL (3.0-7.5)
[2016-12-02] MEDS ORDERED: Heparin 25,000u/D5W 500ml 500 ML IV SCH (05:35)
[2016-12-02] MEDS: Tamsulosin 0.4mg cap ORAL SCH ×2 (09:01→17:37)
[2016-12-02] MEDS: Aspirin EC 81mg tab ORAL SCH (09:01)
[2016-12-02] MEDS: Docusate 100mg cap ORAL SCH ×3 (09:02→17:37)
[2016-12-02] MEDS: Allopurinol 100mg Tab ORAL SCH (09:02)
--- NOTE | 2016-12-02 14:27 | General Progress Note ---
Assessment/Plan Status: stable Assessment/Plan 1. Acute on chronic renal failure. 2. Pulmonary symptoms are most likely secondary to volume overload and congestive heart failure. CT: Bilateral upper lobe emphysematous changes/fibrosis. Background groundglass opacity is nonspecific and may represent superimposed acute pulmonary edema. 3. History of multi-infarct brain disease. 4. Hypertension./ Pulmonary HTN 5. Coronary artery disease and history of cardiac arrhythmia. 6. Anemia 7. At fib with low VR Plan: dialysed today- change Norvasc to Procardia- start Eliquis Epogen- Venofer- Laxative- On hytrin HS monitor renal parameters cardio, EP eval, noted PT OT Subjective ROS Limited/Unobtainable: No Constitutional: Reports: malaise Allergies: Coded Allergies: No Known Allergies (Unverified , 12/16/14) Objective Last 24 Hour Vital Signs Date Time Temp Pulse Resp B/P Pulse Ox O2 Delivery O2 Flow Rate FiO2 12/02/16 12:00 96.9 77 17 148/51 98 Room Air 82 12/02/16 12:00 77 12/02/16 09:08 Nasal Cannula 2.0 12/02/16 09:06 97.0 88 18 168/81 97 Nasal Cannula 2.0 12/02/16 09:03 88 160/81 12/02/16 08:00 88 12/02/16 07:00 97.4 82 18 158/76 Nasal Cannula 2.0 12/02/16 05:00 97.7 82 20 171/85 97 Nasal Cannula 2.0 12/02/16 05:00 Nasal Cannula 2.0 12/02/16 04:16 99.1 90 21 150/80 96 Nasal Cannula 2.0 12/02/16 04:00 81 12/02/16 00:04 98.8 83 20 149/63 98 Nasal Cannula 2.0 12/02/16 00:00 87 12/01/16 20:00 67 12/01/16 20:00 97.5 67 19 150/72 93 Nasal Cannula 2.0 12/01/16 17:31 67 137/55 12/01/16 16:00 60 12/01/16 16:00 98.1 67 20 137/55 98 Nasal Cannula 2.0 Intake and Output 12/01/16 12/02/16 19:00 07:00 Intake Total 908.36 ml 333.33 ml Output Total 450 ml 900 ml Balance 458.36 ml -566.67 ml Intake Oral 560 ml IV Total 348.36 ml 333.33 ml Output Urine Total 450 ml 900 ml # Voids 2 1 Laboratory Tests 12/02/16 04:35: White Blood Count 6.1, Red Blood Count 2.91L, Hemoglobin 9.2L, Hematocrit 27.7L , Mean Corpuscular Volume 95, Mean Corpuscular Hemoglobin 31.7H, Mean Corpuscular Hemoglobin Concent 33.2, Red Cell Distribution Width 12.9, Platelet Count 153, Mean Platelet Volume 6.2L, Neutrophils (%) (Auto) 63.4, Lymphocytes ( %) (Auto) 18.1L, Monocytes (%) (Auto) 9.5, Eosinophils (%) (Auto) 8.4H, Basophils (%) (Auto) 0.8, Activated Partial Thromboplast Time 130H, Sodium Level 138, Potassium Level 4.2, Chloride Level 103, Carbon Dioxide Level 16L, Anion Gap 19H, Blood Urea Nitrogen 53H, Creatinine 4.4H, Estimat Glomerular Filtration Rate , Glucose Level 104, Uric Acid 10.3H, Calcium Level 8.4L, Phosphorus Level 4.6, Total Bilirubin 0.3, Aspartate Amino Transf (AST/SGOT) 22 , Alanine Aminotransferase (ALT/SGPT) 28, Alkaline Phosphatase 88, Pro-B-Type Natriuretic Peptide 68916L, Total Protein 5.7L, Albumin 3.2L, Globulin 2.5, Albumin/Globulin Ratio 1.2 12/02/16 13:00: Activated Partial Thromboplast Time 55H Height (Feet): 5 Height (Inches): 7.00 Weight (Pounds): 160 General Appearance: no apparent distress Cardiovascular: regular rhythm Respiratory/Chest: decreased breath sounds Abdomen: soft Objective other PE not changed CHECO SALAZAR Dec 02, 2016 14:27
[2016-12-02] MEDS ORDERED: Heparin 5000 units/ml inj IV ONE (14:30)
[2016-12-02] MEDS: Eliquis 2.5mg tablet ORAL SCH (17:38)
--- NOTE | 2016-12-02 17:50 | Cardiology Progress Note ---
Assessment/Plan Assessment/Plan exertion dyspnea / diastolic failure ? systemic htn ckd advanced paf no win afib bradycardia likley sinsu / avn diseae pulmonary htn s/p cea s/p resection of ?kidney and partial y of liver and stomach (all per pt report ) lv fxn normal repeat torp neg will need outpt fu has converted to sinus again spont ep did nto feel pacer indicated at this time i have discussed the need for anticoag via one of [place] speaking staff and explained risk of bleeding will start on eliquis in am dc heparin home sun / sunday if able to get meds d/w dr french Subjective Cardiovascular: Denies: chest pain, lightheadedness, palpitations Respiratory: Denies: SOB with excertion Gastrointestinal/Abdominal: Denies: abdominal pain Genitourinary: Denies: burning Objective Last 24 Hour Vital Signs Date Time Temp Pulse Resp B/P Pulse Ox O2 Delivery O2 Flow Rate FiO2 12/02/16 17:35 77 148/51 12/02/16 16:00 98.1 78 18 143/62 Nasal Cannula 2.0 96 12/02/16 12:00 96.9 77 17 148/51 98 Room Air 82 12/02/16 12:00 77 12/02/16 09:08 Nasal Cannula 2.0 12/02/16 09:06 97.0 88 18 168/81 97 Nasal Cannula 2.0 12/02/16 09:03 88 160/81 12/02/16 08:00 88 12/02/16 07:00 97.4 82 18 158/76 Nasal Cannula 2.0 12/02/16 05:00 97.7 82 20 171/85 97 Nasal Cannula 2.0 12/02/16 05:00 Nasal Cannula 2.0 12/02/16 04:16 99.1 90 21 150/80 96 Nasal Cannula 2.0 12/02/16 04:00 81 12/02/16 00:04 98.8 83 20 149/63 98 Nasal Cannula 2.0 12/02/16 00:00 87 12/01/16 20:00 67 12/01/16 20:00 97.5 67 19 150/72 93 Nasal Cannula 2.0 General Appearance: no apparent distress, alert Cardiovascular: normal rate, regular rhythm Respiratory/Chest: lungs clear, normal breath sounds Abdomen: normal bowel sounds, non tender, soft Extremities: no swelling Intake and Output 12/01/16 12/02/16 19:00 07:00 Intake Total 908.36 ml 333.33 ml Output Total 450 ml 900 ml Balance 458.36 ml -566.67 ml Intake Oral 560 ml IV Total 348.36 ml 333.33 ml Output Urine Total 450 ml 900 ml # Voids 2 1 Laboratory Tests Test 12/02/16 04:35 12/02/16 13:00 White Blood Count 6.1 K/UL (4.8-10.8) Red Blood Count 2.91 M/UL (4.70-6.10) L Hemoglobin 9.2 G/DL (14.2-18.0) L Hematocrit 27.7 % (42.0-52.0) L Mean Corpuscular Volume 95 FL (80-99) Mean Corpuscular Hemoglobin 31.7 PG (27.0-31.0) H Mean Corpuscular Hemoglobin Concent 33.2 G/DL (32.0-36.0) Red Cell Distribution Width 12.9 % (11.6-14.8) Platelet Count 153 K/UL (150-450) Mean Platelet Volume 6.2 FL (6.5-10.1) L Neutrophils (%) (Auto) 63.4 % (45.0-75.0) Lymphocytes (%) (Auto) 18.1 % (20.0-45.0) L Monocytes (%) (Auto) 9.5 % (1.0-10.0) Eosinophils (%) (Auto) 8.4 % (0.0-3.0) H Basophils (%) (Auto) 0.8 % (0.0-2.0) Activated Partial Thromboplast Time 130 SEC (23-33) H 55 SEC (23-33) H Sodium Level 138 mEQ/L (135-145) Potassium Level 4.2 mEQ/L (3.4-4.9) Chloride Level 103 mEQ/L (98-107) Carbon Dioxide Level 16 mEQ/L (20-30) L Anion Gap 19 (5-15) H Blood Urea Nitrogen 53 mg/dL (7-23) H Creatinine 4.4 mg/dL (0.7-1.2) H Estimat Glomerular Filtration Rate mL/min (>60) Glucose Level 104 mg/dL (74-106) Uric Acid 10.3 mg/dL (3.0-7.5) H Calcium Level 8.4 mg/dL (8.6-10.2) L Phosphorus Level 4.6 mg/dL (2.5-4.8) Total Bilirubin 0.3 mg/dL (0.0-1.2) Aspartate Amino Transf (AST/SGOT) 22 U/L (5-40) Alanine Aminotransferase (ALT/SGPT) 28 U/L (3-41) Alkaline Phosphatase 88 U/L (40-129) Pro-B-Type Natriuretic Peptide 49543 pg/mL (0-450) H Total Protein 5.7 g/dL (6.6-8.7) L Albumin 3.2 g/dL (3.5-5.2) L Globulin 2.5 g/dL Albumin/Globulin Ratio 1.2 (1.0-2.7) DARBY MARIE Dec 02, 2016 17:50
[2016-12-02] MEDS: RisperiDONE 0.25mg tab ORAL SCH (21:10)
[2016-12-02] MEDS: Terazosin 1mg cap ORAL SCH (21:10)
[2016-12-03] VITALS: BP 126/55
[2016-12-03 04:00] VITALS: BP 137/58
[2016-12-03 06:56] LABS: BASOPHILS % (AUTO) 0.8 % (0.0-2.0); LYMPHOCYTES % (AUTO) 15.9 % (20.0-45.0); MEAN CORPUSCULAR HEMOGLOBIN 31.3 PG (27.0-31.0); MEAN CORPUSCULAR HGB CONC 32.8 G/DL (32.0-36.0); MEAN CORPUSCULAR VOLUME 95 FL (80-99); MONOCYTES % (AUTO) 13.6 % (1.0-10.0); NEUTROPHILS % (AUTO) 60.7 % (45.0-75.0); PLATELET COUNT 155 K/UL (150-450); RED BLOOD COUNT 3.11 M/UL (4.70-6.10); RED CELL DISTRIBUTION WIDTH 12.9 % (11.6-14.8); WHITE BLOOD COUNT 4.5 K/UL (4.8-10.8)
[2016-12-03 07:53] LABS: ALANINE AMINOTRANSFERASE 27 U/L (3-41); ALBUMIN/GLOBULIN RATIO 1.3 (1.0-2.7); ANION GAP 15 (5-15); ASPARTATE AMINO TRANSFERASE 21 U/L (5-40); CARBON DIOXIDE 26 mEQ/L (20-30); CHLORIDE 97 mEQ/L (98-107); CREATININE 3.4 mg/dL (0.7-1.2); HEMOLYSIS 3; PHOSPHORUS 3.4 mg/dL (2.5-4.8); POTASSIUM 4.3 mEQ/L (3.4-4.9); SODIUM 138 mEQ/L (135-145); TOTAL PROTEIN 5.5 g/dL (6.6-8.7); URIC ACID 5.1 mg/dL (3.0-7.5)
[2016-12-03 08:00] VITALS: BP 127/56
[2016-12-03] MEDS: Tamsulosin 0.4mg cap ORAL SCH (09:27)
[2016-12-03] MEDS: Eliquis 2.5mg tablet ORAL SCH (09:27)
[2016-12-03] MEDS: Aspirin EC 81mg tab ORAL SCH (09:28)
[2016-12-03] MEDS: Allopurinol 100mg Tab ORAL SCH (09:28)
[2016-12-03] MEDS: Docusate 100mg cap ORAL SCH ×2 (09:28→12:10)
--- NOTE | 2016-12-03 11:42 | General Progress Note ---
Assessment/Plan Status: stable Status Narrative appears stable on current meds and fu as out patient Assessment/Plan Status: 1. Acute on chronic renal failure. 2. Pulmonary symptoms are most likely secondary to volume overload and congestive heart failure. CT: Bilateral upper lobe emphysematous changes/fibrosis. Background groundglass opacity is nonspecific and may represent superimposed acute pulmonary edema. 3. History of multi-infarct brain disease. 4. Hypertension./ Pulmonary HTN 5. Coronary artery disease and history of cardiac arrhythmia. 6. Anemia 7. At fib with low VR. PAF Plan: dialysed 2/ change Norvasc to Procardia- start Eliquis Epogen- Venofer- Laxative- On hytrin HS monitor renal parameters cardio, EP eval, noted PT OT Subjective ROS Limited/Unobtainable: No Allergies: Coded Allergies: No Known Allergies (Unverified , 12/16/14) Objective Last 24 Hour Vital Signs Date Time Temp Pulse Resp B/P Pulse Ox O2 Delivery O2 Flow Rate FiO2 12/03/16 09:28 83 127/56 12/03/16 08:00 97.5 83 17 127/56 97 Nasal Cannula 2.0 12/03/16 08:00 71 12/03/16 04:00 98.2 86 18 137/58 95 Nasal Cannula 2.0 12/03/16 03:56 77 12/03/16 00:00 97.9 76 18 126/55 95 Nasal Cannula 2.0 12/02/16 23:52 77 12/02/16 22:12 98.1 12/02/16 20:00 79 12/02/16 20:00 97.9 79 18 120/51 Nasal Cannula 2.0 96 12/02/16 17:35 77 148/51 12/02/16 16:00 80 12/02/16 16:00 98.1 78 18 143/62 Nasal Cannula 2.0 96 12/02/16 12:00 96.9 77 17 148/51 98 Room Air 82 12/02/16 12:00 77 Intake and Output 12/02/16 12/03/16 19:00 07:00 Intake Total 828.056 ml 210 ml Output Total 2420 ml 250 ml Balance -1591.944 ml -40 ml Intake Oral 680 ml 210 ml IV Total 148.056 ml Output Urine Total 320 ml 250 ml Hemodialysis UF 2100 ml # Voids 2 1 Current Medications Medications (Trade) Dose Ordered Sig/Kris Route PRN Reason Start Time Stop Time Status Last Admin Dose Admin Acetaminophen (Tylenol) 650 mg Q4H PRN ORAL Mild Pain/Temp > 100.5 11/28/16 16:45 12/28/16 16:44 11/29/16 23:22 Acetaminophen (Tylenol) 650 mg QID ORAL 11/30/16 18:00 12/30/16 17:59 12/03/16 09:28 Allopurinol (Zyloprim) 200 mg DAILY ORAL 12/02/16 09:00 01/01/17 08:59 12/03/16 09:28 Apixaban (Eliquis) 2.5 mg BID ORAL 12/02/16 18:00 01/01/17 17:59 12/03/16 09:27 Aspirin (Ecotrin) 81 mg DAILY ORAL 11/29/16 09:00 12/29/16 08:59 12/03/16 09:28 Docusate Sodium (Colace) 100 mg THREE TIMES A DAY ORAL 11/30/16 18:00 12/30/16 17:59 12/03/16 09:28 Epoetin Issa (Procrit (for non ESRD use)) 10,000 units SUN-SUN-SUN SUBQ 11/29/16 21:00 12/29/16 20:59 12/01/16 21:04 Finasteride (Proscar) 5 mg DAILY ORAL 11/29/16 09:00 12/29/16 08:59 12/03/16 09:33 Mirtazapine (Remeron) 15 mg BEDTIME ORAL 11/30/16 21:00 12/30/16 20:59 12/02/16 21:10 Nifedipine (Procardia XL) 60 mg Q12HR ORAL 12/02/16 18:00 01/01/17 17:59 12/03/16 09:28 Ondansetron HCl (Zofran) 4 mg Q6H PRN IVP Nausea & Vomiting 11/28/16 16:45 12/28/16 16:44 12/02/16 18:58 Pantoprazole (Protonix) 40 mg EVERY 12 HOURS ORAL 12/02/16 21:00 01/01/17 20:59 12/03/16 09:28 Risperidone (RisperDAL) 0.25 mg QHS ORAL 12/01/16 21:00 12/31/16 20:59 12/02/16 21:10 Tamsulosin HCl (Flomax) 0.4 mg TWICE A DAY ORAL 11/28/16 18:00 12/28/16 17:59 12/03/16 09:27 Terazosin HCl (Hytrin) 1 mg BEDTIME ORAL 11/30/16 21:00 12/30/16 20:59 12/02/16 21:10 Laboratory Tests 12/02/16 13:00: Activated Partial Thromboplast Time 55H 12/03/16 06:00: White Blood Count 4.5L, Red Blood Count 3.11L, Hemoglobin 9.7L, Hematocrit 29.6L , Mean Corpuscular Volume 95, Mean Corpuscular Hemoglobin 31.3H, Mean Corpuscular Hemoglobin Concent 32.8, Red Cell Distribution Width 12.9, Platelet Count 155, Mean Platelet Volume 6.0L, Neutrophils (%) (Auto) 60.7, Lymphocytes ( %) (Auto) 15.9L, Monocytes (%) (Auto) 13.6H, Eosinophils (%) (Auto) 9.0H, Basophils (%) (Auto) 0.8, Sodium Level 138, Potassium Level 4.3, Chloride Level 97L, Carbon Dioxide Level 26, Anion Gap 15, Blood Urea Nitrogen 30H, Creatinine 3.4H, Estimat Glomerular Filtration Rate , Glucose Level 88, Uric Acid 5.1, Calcium Level 8.0L, Phosphorus Level 3.4, Magnesium Level 2.0, Total Bilirubin 0.4, Aspartate Amino Transf (AST/SGOT) 21, Alanine Aminotransferase (ALT/SGPT) 27, Alkaline Phosphatase 91, Pro-B-Type Natriuretic Peptide 8922H, Total Protein 5.5L, Albumin 3.2L, Globulin 2.3, Albumin/Globulin Ratio 1.3 Height (Feet): 5 Height (Inches): 7.00 Weight (Pounds): 160 General Appearance: no apparent distress Objective other PE not changed CHECO SALAZAR Dec 03, 2016 11:42
[2016-12-03] MEDS ORDERED: ACETAMINOPHEN325 M1 ORAL (11:47)
[2016-12-03] MEDS ORDERED: ALLOPURINOL100 M1 ORAL (11:47)
[2016-12-03] MEDS ORDERED: MIRTAZAPINE15 M3 ORAL (11:47)
[2016-12-03] MEDS ORDERED: ELIQUIS2.5 MG ORAL (11:47)
[2016-12-03] MEDS ORDERED: NIFEDICAL XL30 MG ORAL (11:47)
[2016-12-03] MEDS ORDERED: COLACE100 MG ORAL (11:47)
--- NOTE | 2016-12-03 11:49 | Discharge Instructions ---
Discharge Instructions Discharge Instructions Follow up with: myself in 3-5 days Diet: renal (80g protein, 2GM) Resume Normal Activity?: Yes Special Instructions call MD if change of condition- Fall percautions- For Congestive Heart Failure Reminder Report to your physician any weight gain of 5 pounds or more in one week. CHECO SALAZAR Dec 03, 2016 11:49
[2016-12-03 12:00] VITALS: BP 114/59
[2016-12-03] MEDS ORDERED: Pneumococcal Vaccine 25mcg/0.5ml IM ONE (12:30)
--- NOTE | 2016-12-03 14:34 | Cardiology Progress Note ---
Assessment/Plan Assessment/Plan exertion dyspnea / diastolic failure ? systemic htn ckd advanced paf no win afib bradycardia likley sinus / avn diseae pulmonary htn s/p cea s/p resection of ?kidney and partial y of liver and stomach (all per pt report ) lv fxn normal repeat torp neg will need outpt fu has converted to safib again ep did nto feel pacer indicated at this time i have discussed the need for anticoag via one of italian speaking staff and explained risk of bleeding on eliquis home today needs fu as outpt Subjective Cardiovascular: Denies: chest pain, irregular heart rate, lightheadedness Respiratory: Denies: shortness of breath Gastrointestinal/Abdominal: Denies: abdominal pain Objective Last 24 Hour Vital Signs Date Time Temp Pulse Resp B/P Pulse Ox O2 Delivery O2 Flow Rate FiO2 12/03/16 12:00 97.7 74 17 114/59 95 Room Air 12/03/16 12:00 71 12/03/16 09:28 83 127/56 12/03/16 08:00 97.5 83 17 127/56 97 Nasal Cannula 2.0 12/03/16 08:00 71 12/03/16 04:00 98.2 86 18 137/58 95 Nasal Cannula 2.0 12/03/16 03:56 77 12/03/16 00:00 97.9 76 18 126/55 95 Nasal Cannula 2.0 12/02/16 23:52 77 12/02/16 22:12 98.1 12/02/16 20:00 79 12/02/16 20:00 97.9 79 18 120/51 Nasal Cannula 2.0 96 12/02/16 17:35 77 148/51 12/02/16 16:00 80 12/02/16 16:00 98.1 78 18 143/62 Nasal Cannula 2.0 96 General Appearance: no apparent distress, alert Neck: supple Cardiovascular: normal rate, regular rhythm Respiratory/Chest: lungs clear, normal breath sounds Abdomen: normal bowel sounds, non tender, soft Extremities: non-tender, no swelling Intake and Output 12/02/16 12/03/16 19:00 07:00 Intake Total 828.056 ml 210 ml Output Total 2420 ml 250 ml Balance -1591.944 ml -40 ml Intake Oral 680 ml 210 ml IV Total 148.056 ml Output Urine Total 320 ml 250 ml Hemodialysis UF 2100 ml # Voids 2 1 Laboratory Tests Test 12/03/16 06:00 White Blood Count 4.5 K/UL (4.8-10.8) L Red Blood Count 3.11 M/UL (4.70-6.10) L Hemoglobin 9.7 G/DL (14.2-18.0) L Hematocrit 29.6 % (42.0-52.0) L Mean Corpuscular Volume 95 FL (80-99) Mean Corpuscular Hemoglobin 31.3 PG (27.0-31.0) H Mean Corpuscular Hemoglobin Concent 32.8 G/DL (32.0-36.0) Red Cell Distribution Width 12.9 % (11.6-14.8) Platelet Count 155 K/UL (150-450) Mean Platelet Volume 6.0 FL (6.5-10.1) L Neutrophils (%) (Auto) 60.7 % (45.0-75.0) Lymphocytes (%) (Auto) 15.9 % (20.0-45.0) L Monocytes (%) (Auto) 13.6 % (1.0-10.0) H Eosinophils (%) (Auto) 9.0 % (0.0-3.0) H Basophils (%) (Auto) 0.8 % (0.0-2.0) Sodium Level 138 mEQ/L (135-145) Potassium Level 4.3 mEQ/L (3.4-4.9) Chloride Level 97 mEQ/L (98-107) L Carbon Dioxide Level 26 mEQ/L (20-30) Anion Gap 15 (5-15) Blood Urea Nitrogen 30 mg/dL (7-23) H Creatinine 3.4 mg/dL (0.7-1.2) H Estimat Glomerular Filtration Rate mL/min (>60) Glucose Level 88 mg/dL (74-106) Uric Acid 5.1 mg/dL (3.0-7.5) Calcium Level 8.0 mg/dL (8.6-10.2) L Phosphorus Level 3.4 mg/dL (2.5-4.8) Magnesium Level 2.0 mg/dL (1.7-2.5) Total Bilirubin 0.4 mg/dL (0.0-1.2) Aspartate Amino Transf (AST/SGOT) 21 U/L (5-40) Alanine Aminotransferase (ALT/SGPT) 27 U/L (3-41) Alkaline Phosphatase 91 U/L (40-129) Pro-B-Type Natriuretic Peptide 8922 pg/mL (0-450) H Total Protein 5.5 g/dL (6.6-8.7) L Albumin 3.2 g/dL (3.5-5.2) L Globulin 2.3 g/dL Albumin/Globulin Ratio 1.3 (1.0-2.7) DARBY MARIE Dec 03, 2016 14:34
--- NOTE | 2016-12-05 20:31 | Cardiology Report ---
APPROVED REPORT EKG Measurement Heart [id number] Atrial fibrillation with slow ventricular response Septal infarct, age undetermined Abnormal ECG
== END 2016-12-03 15:30 | disposition home or self-care (01) | DRG 291 ==
LOC: EMR 11:59 → 2E 12:13 → EDBEDREQ 13:21
PROC: 5A1D00Z (ICD-10-PCS; principal; 2016-12-02)
DX: I50.30 Unspecified diastolic (congestive) heart failure (principal); N18.6 End stage renal disease; N17.9 Acute kidney failure, unspecified; J84.9 Interstitial pulmonary disease, unspecified; I27.2 Other secondary pulmonary hypertension; I12.0 Hypertensive chronic kidney disease with stage 5 chronic kidney disease or end stage renal disease; J44.9 Chronic obstructive pulmonary disease, unspecified; D64.9 Anemia, unspecified; I25.10 Atherosclerotic heart disease of native coronary artery without angina pectoris; Z86.73 Personal history of transient ischemic attack (TIA), and cerebral infarction without residual deficits; Z99.2 Dependence on renal dialysis; I48.0 Paroxysmal atrial fibrillation; Z23 Encounter for immunization
CPT/HCPCS: 36415; 71010; 71250; 76775; 80053; 80061; 81003; 82378; 82550; 82553; 82607; 82728; 82746; 82977; 83036; 83540; 83550; 83605; 83615; 83735; 83880; 84100; 84153; 84154; 84443; 84484; 84550; 85007; 85025; 85044; 85060; 85610; 85651; 85730; 86140; 87040; 89050; 90732; 93005; 93306; J2405

== ENCOUNTER 2017-01-11 10:44 | Inpatient (IN) | payer MEDICARE, MEDICAID ==
[~2017-01-11] VITALS: Ht 165.1 cm; Wt 63.5 kg
[2017-01-11] VITALS (7 sets, daily range): BP systolic 151–168; BP diastolic 58–83
[~2017-01-11 10:44] MED LIST changes: +ACETAMINOPHEN325 M1 ORAL; +COLACE100 MG ORAL; +ELIQUIS2.5 MG ORAL; +MIRTAZAPINE15 M3 ORAL; +NIFEDICAL XL30 MG ORAL
[2017-01-11] MEDS ORDERED: Albuterol ud Inhalation ONE (11:17)
[2017-01-11] MEDS ORDERED: Ipratropium 0.02% Inh Soln 2.5ml UD ONE (11:17)
[2017-01-11] MEDS ORDERED: Albuterol ud Inhalation HHN ONE (11:30)
[2017-01-11] MEDS ORDERED: Solu-MEDROL 125mg Inj IVP ONE (11:30)
[2017-01-11] MEDS ORDERED: Ipratropium 0.02% Inh Soln 2.5ml UD HHN ONE (11:30)
[2017-01-11 11:32] LABS: BASOPHILS % (AUTO) 0.6 % (0.0-2.0); LYMPHOCYTES % (AUTO) 9.7 % (20.0-45.0); MEAN CORPUSCULAR HEMOGLOBIN 30.6 PG (27.0-31.0); MEAN CORPUSCULAR HGB CONC 32.2 G/DL (32.0-36.0); MEAN CORPUSCULAR VOLUME 95 FL (80-99); MONOCYTES % (AUTO) 4.2 % (1.0-10.0); NEUTROPHILS % (AUTO) 84.5 % (45.0-75.0); PLATELET COUNT 209 K/UL (150-450); RED CELL DISTRIBUTION WIDTH 13.7 % (11.6-14.8); WHITE BLOOD COUNT 9.3 K/UL (4.8-10.8)
[2017-01-11 11:47] LABS: ALANINE AMINOTRANSFERASE 19 U/L (3-41); ALBUMIN/GLOBULIN RATIO 1.1 (1.0-2.7); ANION GAP 21 (5-15); ASPARTATE AMINO TRANSFERASE 31 U/L (5-40); CALCIUM 8.7 mg/dL (8.6-10.2); CARBON DIOXIDE 16 mEQ/L (20-30); CHLORIDE 98 mEQ/L (98-107); CREATININE 4.5 mg/dL (0.7-1.2); HEMOLYSIS 61; POTASSIUM 5.1 mEQ/L (3.4-4.9); SODIUM 135 mEQ/L (135-145); TOTAL PROTEIN 6.6 g/dL (6.6-8.7); TROPONIN I < 0.30 ng/mL (<=0.30)
[2017-01-11 11:57] LABS: CKMB 2.6 ng/mL (< 6.7)
[2017-01-11 12:47] LABS: ABG PCO2 30.7 mmHg (35.0-45.0)
[2017-01-11 12:48] LABS: ABG ALLEN TEST POSITIVE; ABG BASE EXCESS -6.5
[2017-01-11] MEDS ORDERED: UNOBMED (13:13)
--- NOTE | 2017-01-11 14:11 | Emergency Room Report ---
History of Present Illness General Chief Complaint: Chest Pain Source: Patient, Medical Record Present Illness HPI 81-year-old male presents to ED for shortness of breath. States symptoms started today. Patient has history of end-stage renal disease and COPD. brought from home by . Patient states he cannot breathe. Denies any chest pain. Denies any fevers or chills. Denies cough. No aggravating or relieving factors. Denies any other associated symptoms Allergies: Coded Allergies: No Known Allergies (Unverified , 12/16/14) Patient History Past Medical History: HTN, COPD, dementia, renal disease, dialysis Past Surgical History: none Pertinent Family History: none Social History: Denies: alcohol use, drug use, smoking Immunizations: UTD Reviewed Nursing Documentation: PMH: Agreed, PSxH: Agreed Nursing Documentation-PMH Past Medical History: No History, Except For Hx Hypertension: Yes Hx COPD: Yes Hx Cancer: No Hx Gastrointestinal Problems: Yes Hx Dialysis: Yes - Previous.3 months ago Hx Neurological Problems: Yes Hx Cerebrovascular Accident: Yes Hx Dementia: Yes Review of Systems All Other Systems: negative except mentioned in HPI Physical Exam Vital Signs Date Time Temp Pulse Resp B/P Pulse Ox O2 Delivery O2 Flow Rate FiO2 01/11/17 10:50 97.7 22 153/83 79 Room Air 01/11/17 11:11 87 01/11/17 11:19 6.0 01/11/17 13:15 50 Sp02 EP Interpretation: reviewed, normal General Appearance: no apparent distress, alert, GCS 15, non-toxic Head: normocephalic Eyes: bilateral eye PERRL, bilateral eye normal inspection ENT: normal ENT inspection Neck: normal inspection Respiratory: chest non-tender, decreased breath sounds, crackles, speaking full sentences Cardiovascular #1: regular rate, rhythm, no edema Gastrointestinal: normal inspection Rectal: deferred Genitourinary: no CVA tenderness Musculoskeletal: normal inspection Neurologic: alert, oriented x3, responsive, motor strength/tone normal, sensory intact, speech normal Psychiatric: normal inspection Skin: normal inspection Lymphatic: normal inspection Procedures Critical Care Time Critical Care Time i. I feel this is a highly complex case requiring extensive working including EKG/Rhythm strip, Xray/CT/US, Blood/urine lab work, repeat exams while in ED, and administration of strong opiates/narcotics for pain control, admission to hospital or close patient follow up. Total time: 30 min bedside evaluation and treatment excludes procedures (EKG). Reason for critical care: Respiratory distress, hypoxia Possible complications: hypotension, hypertension, FL, shock, arrhythmias, metabolic acidosis, end organ damage, respiratory failure. Interventions: Labs, EKG, chest x-ray, breathing treatments, ABG, BiPAP Course: Patient brought in for shortness of breath. History of end-stage renal disease not receiving dialysis. Crackles on exam. Given breathing treatments. ABG shows some hypoxia. Patient showing labored breathing. Started on BiPAP. Patient had difficult IV access; I placed peripheral EJ line. lasix given. abx given. Consultations: nursing staff, EMS, family Performed by: Dr Tracey Tolerated well condition = serious j. because of unstable vital signs this patient had a condition that could potentially threaten life or limb. I feel this is a critical patient who required my full attention while patient was considered critical. Total Critical Care Time excluding procedures was greater than 35 minutes Medical Decision Making Diagnostic Impression: Primary Impression: COPD (chronic obstructive pulmonary disease) Qualified Codes: J44.9 - Chronic obstructive pulmonary disease, unspecified Additional Impressions: ESRD (end stage renal disease) on dialysis Fluid overload Qualified Codes: E87.70 - Fluid overload, unspecified ER Course Hospital Course 81-year-old M presenting to ED with SOB. h/o COPD and ESRD Differential diagnoses include: Pneumonia, CHF exacerbation, pneumothorax, fluid overload Clinical course Patient placed on stretcher. On doctor of pharmacy with stable vitals. After initial history and physical, I ordered nebulizer treatments. I ordered labs, IV fluids, EKG, chest x-ray, blood cultures, UA. Labs - no leukocytosis noted, hemoglobin/hematocrit stable, K 5.1, BUN/Cr elevated, trop negative, BNP elevated CXR - cardiomegaly. b/l effusion. pulmoanry congestion Patient had difficult IV access. I placed peripheral EJ line ABG shows hypoxia. Patient showed labored breathing. started on BiPAP. Morin catheter placed. Given Lasix Case discussed with Dr. Mckeon and he agreed to the patient to his service for further care and support I feel this is a highly complex case requiring extensive working including EKG/ Rhythm strip, Xray/CT/US, Blood/urine lab work, repeat exams while in ED, and administration of strong opiates/narcotics for pain control, admission to hospital or close patient follow up. Diagnosis - COPD exacerbation, ESRD on dialysis, fluid overload Patient admitted to [facility] in serious condition Labs Test 01/11/17 11:13 01/11/17 12:36 White Blood Count 9.3 K/UL (4.8-10.8) Red Blood Count 3.20 M/UL (4.70-6.10) Hemoglobin 9.8 G/DL (14.2-18.0) Hematocrit 30.4 % (42.0-52.0) Mean Corpuscular Volume 95 FL (80-99) Mean Corpuscular Hemoglobin 30.6 PG (27.0-31.0) Mean Corpuscular Hemoglobin Concent 32.2 G/DL (32.0-36.0) Red Cell Distribution Width 13.7 % (11.6-14.8) Platelet Count 209 K/UL (150-450) Mean Platelet Volume 6.0 FL (6.5-10.1) Neutrophils (%) (Auto) 84.5 % (45.0-75.0) Lymphocytes (%) (Auto) 9.7 % (20.0-45.0) Monocytes (%) (Auto) 4.2 % (1.0-10.0) Eosinophils (%) (Auto) 1.0 % (0.0-3.0) Basophils (%) (Auto) 0.6 % (0.0-2.0) Sodium Level 135 mEQ/L (135-145) Potassium Level 5.1 mEQ/L (3.4-4.9) Chloride Level 98 mEQ/L (98-107) Carbon Dioxide Level 16 mEQ/L (20-30) Anion Gap 21 (5-15) Blood Urea Nitrogen 39 mg/dL (7-23) Creatinine 4.5 mg/dL (0.7-1.2) Estimat Glomerular Filtration Rate mL/min (>60) Glucose Level 164 mg/dL (74-106) Calcium Level 8.7 mg/dL (8.6-10.2) Total Bilirubin 0.4 mg/dL (0.0-1.2) Aspartate Amino Transf (AST/SGOT) 31 U/L (5-40) Alanine Aminotransferase (ALT/SGPT) 19 U/L (3-41) Alkaline Phosphatase 95 U/L (40-129) Total Creatine Kinase 119 U/L (38-174) Creatine Kinase MB 2.6 ng/mL (< 6.7) Creatine Kinase MB Relative Index 2.1 Troponin I < 0.30 ng/mL (<=0.30) Pro-B-Type Natriuretic Peptide 53487 pg/mL (0-450) Total Protein 6.6 g/dL (6.6-8.7) Albumin 3.5 g/dL (3.5-5.2) Globulin 3.1 g/dL Albumin/Globulin Ratio 1.1 (1.0-2.7) Arterial Blood pH 7.380 (7.350-7.450) Arterial Blood Partial Pressure CO2 30.7 mmHg (35.0-45.0) Arterial Blood Partial Pressure O2 61.0 mmHg (75.0-100.0) Arterial Blood HCO3 17.8 mmol/L (22.0-26.0) Arterial Blood Oxygen Saturation 90.5 % (92.0-98.0) Arterial Blood Base Excess -6.5 Ugo Test Positive EKG Diagnostic Results Rate: normal Rhythm: NSR ST Segments: no acute changes ASA given to the pt in ED: No Rhythm Strip Diag. Results EP Interpretation: yes Rhythm: NSR, no PVC's, no ectopy Chest X-Ray Diagnostic Results EP Interpretation: Yes Findings: no pneumothorax, no acute cardiopulmonary disease, other - cardiomegaly. b/l effusion. congestion Number of Views: 1 Last Vital Signs Date Time Temp Pulse Resp B/P Pulse Ox O2 Delivery O2 Flow Rate FiO2 01/11/17 13:35 50 01/11/17 13:30 72 21 166/58 100 Bi-pap 01/11/17 12:30 6.0 01/11/17 11:11 97.7 Status: improved Disposition: ADMITTED INPATIENT Condition: Serious Referrals: CHECO SALAZAR (PCP) DAVION TRACEY M.D. Jan 11, 2017 14:11
--- NOTE | 2017-01-11 15:25 | Diagnostic Imaging Report ---
Indication: SOB Technique: One view of the chest Comparison: 11/29/2016 Findings: There is extensive bilateral diffuse interstitial and alveolar parenchymal disease, appearing similar in extent to the prior exam, worse on the right than on the left. There are probably bilateral pleural effusions, left greater than right. Heart is enlarged. Impression: Bilateral diffuse pulmonary parenchymal disease, as described. Review of prior chest CT suggests there is significant component of chronic pulmonary interstitial fibrosis, although a superimposed acute interstitial infiltrates versus edema are certainly a possibility, particularly on the right Suspect bilateral pleural effusions Cardiomegaly
--- NOTE | 2017-01-11 16:34 | History & Physical ---
History and Physical History & Physicial # [id number] CHECO SALAZAR Jan 11, 2017 16:34
[2017-01-11] MEDS ORDERED: Morphine Sulfate 2mg/ml Inj IM PRN (17:15)
[2017-01-11] MEDS ORDERED: Metolazone 5mg tab ORAL ONE (17:30)
[2017-01-11 18:33] LABS: PROTHROMBIN TIME 64.3 SEC (9.30-11.50)
[2017-01-11] MEDS: TraZODone 50mg tab ORAL SCH (20:19)
--- NOTE | 2017-01-11 20:19 | Cardiology Progress Note ---
Assessment/Plan Assessment/Plan [id number] Objective Last 24 Hour Vital Signs Date Time Temp Pulse Resp B/P Pulse Ox O2 Delivery O2 Flow Rate FiO2 01/11/17 17:16 165/74 01/11/17 16:57 77 30 100 Facial 50 01/11/17 16:56 97.7 104 18 165/74 99 Bi-pap 01/11/17 16:28 97.7 78 20 167/67 100 Bi-pap 6.0 50 01/11/17 15:30 78 20 167/67 100 Bi-pap 50 01/11/17 14:44 78 21 100 Facial 50 01/11/17 14:30 92 26 151/63 100 Bi-pap 50 01/11/17 13:35 50 01/11/17 13:30 72 21 166/58 100 Bi-pap 50 01/11/17 13:15 26 26 87 Facial 50 01/11/17 12:30 88 21 168/68 88 Simple Mask 6.0 01/11/17 11:50 85 32 94 Simple Mask 6.0 01/11/17 11:20 83 30 95 Simple Mask 6.0 01/11/17 11:19 82 30 Simple Mask 6.0 01/11/17 11:11 97.7 85 22 153/83 79 Room Air 01/11/17 11:11 87 22 Room Air 01/11/17 10:50 97.7 22 153/83 79 Room Air Laboratory Tests Test 01/11/17 11:13 01/11/17 12:36 01/11/17 17:52 White Blood Count 9.3 K/UL (4.8-10.8) Red Blood Count 3.20 M/UL (4.70-6.10) L Hemoglobin 9.8 G/DL (14.2-18.0) L Hematocrit 30.4 % (42.0-52.0) L Mean Corpuscular Volume 95 FL (80-99) Mean Corpuscular Hemoglobin 30.6 PG (27.0-31.0) Mean Corpuscular Hemoglobin Concent 32.2 G/DL (32.0-36.0) Red Cell Distribution Width 13.7 % (11.6-14.8) Platelet Count 209 K/UL (150-450) Mean Platelet Volume 6.0 FL (6.5-10.1) L Neutrophils (%) (Auto) 84.5 % (45.0-75.0) H Lymphocytes (%) (Auto) 9.7 % (20.0-45.0) L Monocytes (%) (Auto) 4.2 % (1.0-10.0) Eosinophils (%) (Auto) 1.0 % (0.0-3.0) Basophils (%) (Auto) 0.6 % (0.0-2.0) Sodium Level 135 mEQ/L (135-145) Potassium Level 5.1 mEQ/L (3.4-4.9) H Chloride Level 98 mEQ/L (98-107) Carbon Dioxide Level 16 mEQ/L (20-30) L Anion Gap 21 (5-15) H Blood Urea Nitrogen 39 mg/dL (7-23) H Creatinine 4.5 mg/dL (0.7-1.2) H Estimat Glomerular Filtration Rate mL/min (>60) Glucose Level 164 mg/dL (74-106) H Calcium Level 8.7 mg/dL (8.6-10.2) Total Bilirubin 0.4 mg/dL (0.0-1.2) Aspartate Amino Transf (AST/SGOT) 31 U/L (5-40) Alanine Aminotransferase (ALT/SGPT) 19 U/L (3-41) Alkaline Phosphatase 95 U/L (40-129) Total Creatine Kinase 119 U/L (38-174) Creatine Kinase MB 2.6 ng/mL (< 6.7) Creatine Kinase MB Relative Index 2.1 Troponin I < 0.30 ng/mL (<=0.30) Pro-B-Type Natriuretic Peptide 94908 pg/mL (0-450) H Total Protein 6.6 g/dL (6.6-8.7) Albumin 3.5 g/dL (3.5-5.2) Globulin 3.1 g/dL Albumin/Globulin Ratio 1.1 (1.0-2.7) Arterial Blood pH 7.380 (7.350-7.450) Arterial Blood Partial Pressure CO2 30.7 mmHg (35.0-45.0) L Arterial Blood Partial Pressure O2 61.0 mmHg (75.0-100.0) L Arterial Blood HCO3 17.8 mmol/L (22.0-26.0) L Arterial Blood Oxygen Saturation 90.5 % (92.0-98.0) L Arterial Blood Base Excess -6.5 Ugo Test Positive Prothrombin Time 64.3 SEC (9.30-11.50) H Prothromb Time International Ratio 6.0 (0.9-1.1) *DARBY HOOKS Jan 11, 2017 20:19
[2017-01-11] MEDS: HydrALAZINE 25mg tab ORAL SCH (21:06)
--- NOTE | 2017-01-11 21:58 | History and Physical Report ---
DATE OF ADMISSION: 01/11/2017 DNYHISTORY OF PRESENT ILLNESS: The patient is an 81-year-old, known to me and being followed by me in the office. He was last discharged on 12/03/2016 here from [facility]. He apparently developed shortness of breath and chest pain, came in to the emergency room. Symptoms started today. After initial evaluation in the emergency room, the patient is being admitted for further management. The patient's past admission was suggestive of worsening renal failure and had pulmonary symptoms which were compatible with volume overload. The patient also has a history of multi-infarct brain disease, hypertension, pulmonary hypertension, coronary artery disease, history of cardiac arrhythmia with the form of atrial fibrillation with low ventricular rate, and paroxysmal atrial fibrillation. The patient is also known to have anemia. The patient was once dialyzed in his last admission, and the list of his medications upon discharge included Tylenol, allopurinol, Eliquis, which later on due to non coverage was switched to Coumadin, aspirin, Colace, Proscar, Remeron, Procardia XL 60 mg every 12 hours, Protonix, risperidone, Flomax, and Hytrin. PHYSICAL EXAMINATION: GENERAL: At this point, the patient is currently on BiPAP. He is comfortable. VITAL SIGNS: Temperature is 97.7; pulse rate is 78; blood pressure 167/67; respiratory rate is now 20, but it was as high as 32; and pulse oximetry is now 100% on FiO2 of 50%. HEENT: The patient is normocephalic. Face is pale. NECK: Rigid to all directions. LUNGS: Decreased breath sounds over the bases. HEART: Regular with occasional irregular beats. ABDOMEN: Soft. Multiple scars of previous surgery present. EXTREMITIES: Lower extremities, the patient has trace edema. GENITALIA: The patient has a Morin catheter in place. LABORATORY DATA: Suggestive of creatinine of 4.5. Pro natriuretic peptide of over 17,000. Glucose 164, potassium 5.1, and hemoglobin 9.8. The initial blood gas, pH 7.38, pCO2 30, and pO2 61. IMPRESSION: 1. Hypoxic respiratory failure. 2. Most likely volume overload secondary to worsening renal failure. 3. Hypertension. 4. Acute on chronic renal failure. 5. History of multi-infarct brain disease. 6. Hypertension. 7. Coronary artery disease. 8. History of cardiac arrhythmia. PLAN: At this point, Dr. Watson and pulmonary consult was sought. The patient is on BiPAP. Meanwhile, we will continue the patient on Coumadin and will continue on allopurinol, aspirin, Protonix, clonidine p.r.n. for blood pressure, Procardia XL, and also trazodone. I have ordered the patient for dialysis and ultrafiltration tomorrow. We will also obtain cardiology consultation, and according to how the patient's condition evolves, we will make the proper changes in our future management. Ady Gómez M.D. DR: OTTO JOB#: [id number] CC:
[2017-01-11] MEDS ORDERED: Phytonadione 10 mg/mL 1ml amp ONE (22:00)
--- NOTE | 2017-01-11 22:29 | Consultation ---
History of Present Illness General Date patient seen: Jan 11, 2017 Chief Complaint: Chest Pain Reason for Consultation: dyspnea Present Illness HPI 81-year-old male with hx of COPD, HTN, CAD, ESRF on HD presented to ED for shortness of breath started today. Patient states he cannot breathe. Denies any chest pain. Denies any fevers or chills. Denies cough. No aggravating or relieving factors. Denies any other associated symptoms. His CXR showed bilateral pulmonary edema and was started on BIPAP and transferring to ICU. Allergies: Coded Allergies: No Known Allergies (Unverified , 12/16/14) Medication History Scheduled Allopurinol* (Allopurinol*), 200 MG ORAL DAILY Apixaban (Eliquis), 2.5 MG ORAL BID Aspirin (Aspirin EC), 81 MG ORAL DAILY, (Reported) Docusate Sodium* (Colace*), 100 MG ORAL THREE TIMES A DAY Finasteride (Finasteride), 5 MG ORAL DAILY Meclizine Hcl* (Antivert*), 12.5 MG ORAL TID Mirtazapine* (Mirtazapine*), 15 MG ORAL BEDTIME Nifedipine Xl* (Procardia Xl*), 60 MG ORAL Q12HR Omeprazole (Omeprazole), 20 MG ORAL DAILY, (Reported) Tamsulosin HCl (Flomax), 0.4 MG ORAL TWICE A DAY Trazodone Hcl (Desyrel), 50 MG ORAL QHS Scheduled PRN Acetaminophen* (Acetaminophen*), 650 MG ORAL Q4H PRN Miscellaneous Medications Unable to Obtain Medications (Unable To Obtain Meds), (Reported) Vit D3 & K/Berberine Hcl/Hops (Ostera Tablet), 1 EACH PO, (Reported) Patient History Healthcare decision maker patient Resuscitation status Full Code Advanced Directive on File Past Medical/Surgical History Past Medical/Surgical History: (1) COPD (chronic obstructive pulmonary disease) (2) Interstitial lung disease (3) ESRD (end stage renal disease) on dialysis (4) CVA (cerebral infarction) (5) Debility Review of Systems All Other Systems: negative except mentioned in HPI Physical Exam General Appearance: WD/WN Lines, tubes and drains: peripheral, central line HEENT: normocephalic, atraumatic Neck: non-tender, normal alignment Respiratory/Chest: chest wall non-tender, rhonchi - bilaterally Breasts: no masses Cardiovascular/Chest: normal peripheral pulses, normal rate Abdomen: normal bowel sounds, non tender Genitourinary/Rectal: normal genital exam, normal rectal exam Extremities: normal range of motion Last 24 Hour Vital Signs Date Time Temp Pulse Resp B/P Pulse Ox O2 Delivery O2 Flow Rate FiO2 01/11/17 21:12 87 23 100 Facial 50 01/11/17 21:06 152/74 01/11/17 20:20 102 162/74 01/11/17 20:00 97.8 82 18 152/74 100 Bi-pap 01/11/17 19:00 93 21 100 Facial 50 01/11/17 17:16 165/74 01/11/17 16:57 77 30 100 Facial 50 01/11/17 16:56 97.7 104 18 165/74 99 Bi-pap 01/11/17 16:28 97.7 78 20 167/67 100 Bi-pap 6.0 50 01/11/17 16:00 90 01/11/17 15:30 78 20 167/67 100 Bi-pap 50 01/11/17 14:44 78 21 100 Facial 50 01/11/17 14:30 92 26 151/63 100 Bi-pap 50 01/11/17 13:35 50 01/11/17 13:30 72 21 166/58 100 Bi-pap 50 01/11/17 13:15 26 26 87 Facial 50 01/11/17 12:30 88 21 168/68 88 Simple Mask 6.0 01/11/17 11:50 85 32 94 Simple Mask 6.0 01/11/17 11:20 83 30 95 Simple Mask 6.0 01/11/17 11:19 82 30 Simple Mask 6.0 01/11/17 11:11 97.7 85 22 153/83 79 Room Air 01/11/17 11:11 87 22 Room Air 01/11/17 10:50 97.7 22 153/83 79 Room Air Laboratory Tests Test 01/11/17 11:13 01/11/17 12:36 01/11/17 17:52 White Blood Count 9.3 K/UL (4.8-10.8) Red Blood Count 3.20 M/UL (4.70-6.10) L Hemoglobin 9.8 G/DL (14.2-18.0) L Hematocrit 30.4 % (42.0-52.0) L Mean Corpuscular Volume 95 FL (80-99) Mean Corpuscular Hemoglobin 30.6 PG (27.0-31.0) Mean Corpuscular Hemoglobin Concent 32.2 G/DL (32.0-36.0) Red Cell Distribution Width 13.7 % (11.6-14.8) Platelet Count 209 K/UL (150-450) Mean Platelet Volume 6.0 FL (6.5-10.1) L Neutrophils (%) (Auto) 84.5 % (45.0-75.0) H Lymphocytes (%) (Auto) 9.7 % (20.0-45.0) L Monocytes (%) (Auto) 4.2 % (1.0-10.0) Eosinophils (%) (Auto) 1.0 % (0.0-3.0) Basophils (%) (Auto) 0.6 % (0.0-2.0) Sodium Level 135 mEQ/L (135-145) Potassium Level 5.1 mEQ/L (3.4-4.9) H Chloride Level 98 mEQ/L (98-107) Carbon Dioxide Level 16 mEQ/L (20-30) L Anion Gap 21 (5-15) H Blood Urea Nitrogen 39 mg/dL (7-23) H Creatinine 4.5 mg/dL (0.7-1.2) H Estimat Glomerular Filtration Rate mL/min (>60) Glucose Level 164 mg/dL (74-106) H Calcium Level 8.7 mg/dL (8.6-10.2) Total Bilirubin 0.4 mg/dL (0.0-1.2) Aspartate Amino Transf (AST/SGOT) 31 U/L (5-40) Alanine Aminotransferase (ALT/SGPT) 19 U/L (3-41) Alkaline Phosphatase 95 U/L (40-129) Total Creatine Kinase 119 U/L (38-174) Creatine Kinase MB 2.6 ng/mL (< 6.7) Creatine Kinase MB Relative Index 2.1 Troponin I < 0.30 ng/mL (<=0.30) Pro-B-Type Natriuretic Peptide 83069 pg/mL (0-450) H Total Protein 6.6 g/dL (6.6-8.7) Albumin 3.5 g/dL (3.5-5.2) Globulin 3.1 g/dL Albumin/Globulin Ratio 1.1 (1.0-2.7) Arterial Blood pH 7.380 (7.350-7.450) Arterial Blood Partial Pressure CO2 30.7 mmHg (35.0-45.0) L Arterial Blood Partial Pressure O2 61.0 mmHg (75.0-100.0) L Arterial Blood HCO3 17.8 mmol/L (22.0-26.0) L Arterial Blood Oxygen Saturation 90.5 % (92.0-98.0) L Arterial Blood Base Excess -6.5 Ugo Test Positive Prothrombin Time 64.3 SEC (9.30-11.50) H Prothromb Time International Ratio 6.0 (0.9-1.1) *H Height (Feet): 5 Height (Inches): 5.00 Weight (Pounds): 140 Medications Current Medications Medications (Trade) Dose Ordered Sig/Kris Route PRN Reason Start Time Stop Time Status Last Admin Dose Admin Acetaminophen (Tylenol) 650 mg Q4H PRN ORAL Mild Pain (Pain Scale 1-3) 01/11/17 16:30 02/10/17 16:29 Allopurinol (Zyloprim) 200 mg DAILY ORAL 01/12/17 09:00 02/11/17 08:59 Aspirin (ASA) 81 mg DAILY ORAL 01/12/17 09:00 02/11/17 08:59 Clonidine HCl (Catapres) 0.1 mg Q4H PRN ORAL bp over 160 syst 01/11/17 16:30 02/10/17 16:29 01/11/17 17:16 Hydralazine HCl 25 mg 25 mg Q6HR ORAL 01/11/17 20:30 02/10/17 20:29 01/11/17 21:06 Mirtazapine (Remeron) 15 mg BEDTIME ORAL 01/11/17 21:00 02/10/17 20:59 01/11/17 20:19 Morphine Sulfate (Morphine Sulfate) 2 mg Q4H PRN IM PAIN 4-10 01/11/17 17:15 01/18/17 17:14 Nifedipine (Procardia XL) 60 mg Q12HR ORAL 01/11/17 21:00 02/10/17 20:59 01/11/17 20:20 Pantoprazole (Protonix) 40 mg EVERY 12 HOURS ORAL 01/11/17 21:00 02/10/17 20:59 01/11/17 20:19 Phytonadione/ Dextrose (Vitamin K/D5W) 56 ml @ 112 mls/hr ONCE ONCE IVPB 01/11/17 22:30 01/11/17 22:59 Trazodone HCl (Desyrel) 50 mg QHS ORAL 01/11/17 21:00 02/10/17 20:59 01/11/17 20:19 Warfarin Sodium (Coumadin per pharmacy) 1 ea DAILY PRN MISC Per rx protocol 01/11/17 16:30 02/10/17 16:29 Assessment/Plan Problem List: (1) Interstitial lung disease ICD Codes: J84.9 - Interstitial pulmonary disease, unspecified SNOMED: 48649606, 189904550 (2) COPD (chronic obstructive pulmonary disease) ICD Codes: J44.9 - Chronic obstructive pulmonary disease, unspecified SNOMED: 23895982 Qualifiers: Qualified Codes: J44.9 - Chronic obstructive pulmonary disease, unspecified (3) ESRD (end stage renal disease) on dialysis ICD Codes: N18.6 - End stage renal failure on dialysis; Z99.2 - Dependence on renal dialysis SNOMED: 910407632 (4) Acute respiratory failure ICD Codes: J96.00 - Acute respiratory failure SNOMED: 76893893 BRITT CASEY Jan 11, 2017 22:29
[2017-01-11] MEDS ORDERED: Phytonadione 10 MG in D5W 55 ML IVPB ONE (22:30)
[2017-01-12] VITALS (7 sets, daily range): BP systolic 135–160; BP diastolic 64–72
[2017-01-12] MEDS: HydrALAZINE 25mg tab ORAL SCH ×3 (00:37→22:23)
--- NOTE | 2017-01-12 01:58 | Consultation ---
DATE OF CONSULTATION: 01/11/2017 CARDIOLOGY CONSULTATION REFERRING PHYSICIAN: Ady Gómez M.D. REASON FOR CONSULTATION: Congestive heart failure. HISTORY OF PRESENT ILLNESS: This is an elderly gentleman, according to on a BiPAP machine at the present time and unable to provide any meaningful history at this time. The patient was brought in by apparently his because of shortness of breath that started today. He apparently denied chest pain to the emergency room physician and denies any fevers or chills or coughing and he was noted to have oxygen saturation down to 79% and was placed on BiPAP therapy and received some medication. He was admitted to the direct observation unit. At this time, the patient's requested. 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 ALLERGIES: No known drug allergies. SOCIAL HISTORY: He does not smoke or drink alcoholic beverages at present time. REVIEW OF SYSTEMS: At this time, unable to obtain. PHYSICAL EXAMINATION: GENERAL: The patient is an elderly gentleman, on BiPAP machine. NECK: Supple. No jugular venous distention. LUNGS: Decreased breath sounds noted at the bases with diffuse crackles on the left side. CARDIAC: Regular rate and rhythm. No heaves or thrills noted. ABDOMEN: Soft and nontender. Positive bowel sounds. EXTREMITIES: There is 1 to 2+ pitting edema of the lower extremities bilaterally. LABORATORY AND DIAGNOSTIC DATA: His chest x-ray shows interstitial disease pattern in comparison with his prior chest x-ray that was performed on 11/29/2016. These changes appeared to be more pronounced reading. His EKG shows sinus rhythm and significant ST-T wave abnormalities. ASSESSMENT AND PLAN: 1. Diastolic heart failure. 2. History of . 3. Pulmonary hypertension. 4. Paroxysmal episodes of atrial fibrillation. 5. Questionable history of coronary artery disease, unknown details. Dr. Gómez, the patient appears to be responding to the support he has been giving. His blood pressure needs to be controlled further and more aggressively and he has been started on some Lasix to which he responded. He has been on some steroid therapy and nicardipine twice a day has been administered. May need other medications once the diureses has been stabilized because of hyperkalemia and renal insufficiency. HUGH inhibitors will not be used at this time and may require a combination of medications with hydralazine and/or clonidine to help with the blood pressure control, to help his diastolic failure as well. Thank you, Dr. Gómez, for allowing me to participate in the care of this patient. Marko Thakkar M.D. DR: LATANYA JOB#: [id number] CC:
[2017-01-12 05:08] LABS: MEAN CORPUSCULAR HEMOGLOBIN 31.6 PG (27.0-31.0); MEAN CORPUSCULAR HGB CONC 33.8 G/DL (32.0-36.0); MEAN CORPUSCULAR VOLUME 93 FL (80-99); MEAN PLATELET VOLUME 5.8 FL (6.5-10.1); PLATELET COUNT 137 K/UL (150-450); RED BLOOD COUNT 2.44 M/UL (4.70-6.10); RED CELL DISTRIBUTION WIDTH 13.5 % (11.6-14.8); WHITE BLOOD COUNT 4.5 K/UL (4.8-10.8)
[2017-01-12 05:11] LABS: INR 1.9 (0.9-1.1); PROTHROMBIN TIME 19.3 SEC (9.30-11.50)
[2017-01-12 05:40] LABS: ALANINE AMINOTRANSFERASE 14 U/L (3-41); ALBUMIN/GLOBULIN RATIO 1.1 (1.0-2.7); ANION GAP 18 (5-15); ASPARTATE AMINO TRANSFERASE 17 U/L (5-40); CARBON DIOXIDE 19 mEQ/L (20-30); CHLORIDE 99 mEQ/L (98-107); CHOLESTEROL 170 mg/dL (< 200); CHOLESTEROL/HDL RATIO 2.9 (3.3-4.4); CREATININE 4.7 mg/dL (0.7-1.2); CRP QUANT 4.9 mg/dL (< 0.5); HEMOLYSIS 2; LDL CHOLESTEROL (CALC.) 102 mg/dL (60-99); MAGNESIUM 2.1 mg/dL (1.7-2.5); PHOSPHORUS 4.8 mg/dL (2.5-4.8); POTASSIUM 4.8 mEQ/L (3.4-4.9); SODIUM 136 mEQ/L (135-145); TROPONIN I < 0.30 ng/mL (<=0.30); URIC ACID 9.3 mg/dL (3.0-7.5)
[2017-01-12 05:41] LABS: FERRITIN 356 ng/mL (10-230); THYROID STIMULATING HORMONE 0.676 uIU/mL (0.300-4.500)
[2017-01-12 06:39] LABS: HEMOLYSIS 5; IRON 39 ug/dL (59-158); TOTAL IRON BINDING CAPACITY 159 ug/dL (250-400)
[2017-01-12] MEDS: Allopurinol 100mg Tab ORAL SCH (08:44)
[2017-01-12] MEDS: Aspirin Baby 81mg ORAL SCH (08:44)
[2017-01-12 08:49] LABS: BASOPHILS % (AUTO) 0.2 % (0.0-2.0); EOSINOPHILS % (AUTO) 0.1 % (0.0-3.0); LYMPHOCYTES % (AUTO) 9.6 % (20.0-45.0); MEAN CORPUSCULAR HEMOGLOBIN 31.4 PG (27.0-31.0); MEAN CORPUSCULAR HGB CONC 32.8 G/DL (32.0-36.0); MEAN CORPUSCULAR VOLUME 96 FL (80-99); MEAN PLATELET VOLUME 5.7 FL (6.5-10.1); MONOCYTES % (AUTO) 6.8 % (1.0-10.0); NEUTROPHILS % (AUTO) 83.4 % (45.0-75.0); PLATELET COUNT 151 K/UL (150-450); RED BLOOD COUNT 2.57 M/UL (4.70-6.10); RED CELL DISTRIBUTION WIDTH 13.2 % (11.6-14.8); WHITE BLOOD COUNT 6.4 K/UL (4.8-10.8)
[2017-01-12 10:24] LABS: BAND NEUTROPHILS % (MANUAL) 0 % (0-8); BASOPHILS % (MANUAL) 0 % (0-2); EOSINOPHILS % (MANUAL) 0 % (0-3); HYPOCHROMASIA 1+; LYMPHOCYTES % (MANUAL) 13 % (20-45); NEUTROPHILS % (MANUAL) 83 % (45-75); PLATELET ESTIMATE ADEQUATE; PLATELET MORPHOLOGY NORMAL; TOTAL CELLS COUNTED 100
--- NOTE | 2017-01-12 11:46 | General Progress Note ---
Assessment/Plan Status: stable Status Narrative got dialysis now 1200cc removed had good urine out put Assessment/Plan 1. Hypoxic respiratory failure, on presentation 2. Most likely volume overload secondary to worsening renal failure. 3. Hypertension. 4. Acute on chronic renal failure. 5. History of multi-infarct brain disease. 6. Hypertension. 7. Coronary artery disease. 8. History of cardiac arrhythmia 9. Anemia Plan; HD done- transfuse- restart flomax and proscar bipap to O2. Subjective ROS Limited/Unobtainable: No Constitutional: Reports: malaise, weakness Allergies: Coded Allergies: No Known Allergies (Unverified , 12/16/14) Objective Last 24 Hour Vital Signs Date Time Temp Pulse Resp B/P Pulse Ox O2 Delivery O2 Flow Rate FiO2 01/12/17 10:30 79 20 96 4.0 36 01/12/17 09:05 81 28 100 Facial 50 01/12/17 08:30 Bi-pap 50 01/12/17 08:30 96.2 81 22 159/67 96 Bi-pap 50 01/12/17 08:00 89 01/12/17 08:00 50 01/12/17 06:38 81 30 100 Facial 50 01/12/17 05:33 140/68 01/12/17 05:25 76 33 100 Facial 50 01/12/17 04:00 96.6 77 22 140/68 99 Bi-pap 01/12/17 04:00 64 01/12/17 03:01 73 26 100 Facial 50 01/12/17 01:33 72 29 100 Facial 50 01/12/17 01:00 50 01/12/17 00:37 135/68 01/12/17 00:02 78 29 100 Facial 50 01/12/17 00:00 97.4 77 24 135/68 100 Bi-pap 01/12/17 00:00 131 01/11/17 21:12 87 23 100 Facial 50 01/11/17 21:06 152/74 01/11/17 20:20 102 162/74 01/11/17 20:00 97.8 82 18 152/74 100 Bi-pap 01/11/17 19:00 93 21 100 Facial 50 01/11/17 17:16 165/74 01/11/17 16:57 77 30 100 Facial 50 01/11/17 16:56 97.7 104 18 165/74 99 Bi-pap 01/11/17 16:28 97.7 78 20 167/67 100 Bi-pap 6.0 50 01/11/17 16:00 90 01/11/17 15:30 78 20 167/67 100 Bi-pap 50 01/11/17 14:44 78 21 100 Facial 50 01/11/17 14:30 92 26 151/63 100 Bi-pap 50 01/11/17 13:35 50 01/11/17 13:30 72 21 166/58 100 Bi-pap 50 01/11/17 13:15 26 26 87 Facial 50 01/11/17 12:30 88 21 168/68 88 Simple Mask 6.0 01/11/17 11:50 85 32 94 Simple Mask 6.0 Intake and Output 01/11/17 01/12/17 19:00 07:00 Intake Total 150 ml 100 ml Output Total 500 ml 1600 ml Balance -350 ml -1500 ml Intake Oral 100 ml IV Total 150 ml Output Urine Total 500 ml 1600 ml # Voids 1 Laboratory Tests 01/11/17 12:36: Arterial Blood pH 7.380, Arterial Blood Partial Pressure CO2 30.7L, Arterial Blood Partial Pressure O2 61.0L, Arterial Blood HCO3 17.8L, Arterial Blood Oxygen Saturation 90.5L, Arterial Blood Base Excess -6.5, Ugo Test Positive 01/11/17 17:52: Prothrombin Time 64.3H, Prothromb Time International Ratio 6.0*H 01/12/17 03:15: Prothrombin Time 19.3H, Prothromb Time International Ratio 1.9H, White Blood Count 4.5#L, Red Blood Count 2.44L, Hemoglobin 7.7L, Hematocrit 22.8L, Mean Corpuscular Volume 93, Mean Corpuscular Hemoglobin 31.6H, Mean Corpuscular Hemoglobin Concent 33.8, Red Cell Distribution Width 13.5, Platelet Count 137L, Mean Platelet Volume 5.8L, Neutrophils (%) (Auto) , Lymphocytes (%) (Auto) , Monocytes (%) (Auto) , Eosinophils (%) (Auto) , Basophils (%) (Auto) , Differential Total Cells Counted 100, Neutrophils % (Manual) 83H, Lymphocytes % (Manual) 13L, Monocytes % (Manual) 4, Eosinophils % (Manual) 0, Basophils % ( Manual) 0, Band Neutrophils 0, Platelet Estimate Adequate, Platelet Morphology Normal, Hypochromasia 1+, Sodium Level 136, Potassium Level 4.8, Chloride Level 99, Carbon Dioxide Level 19L, Anion Gap 18H, Blood Urea Nitrogen 43H, Creatinine 4.7H, Estimat Glomerular Filtration Rate , Glucose Level 130H, Uric Acid 9.3H, Calcium Level 8.0L, Phosphorus Level 4.8, Magnesium Level 2.1, Iron Level 39L, Total Iron Binding Capacity 159L, Percent Iron Saturation 25, Unsaturated Iron Binding 120, Ferritin 356H, Total Bilirubin 0.3, Aspartate Amino Transf (AST/SGOT) 17, Alanine Aminotransferase (ALT/SGPT) 14, Alkaline Phosphatase 69, Troponin I < 0.30, C-Reactive Protein, Quantitative 4.9H, Pro-B- Type Natriuretic Peptide 62508O, Total Protein 5.0L, Albumin 2.7L, Globulin 2.3 , Albumin/Globulin Ratio 1.1, Triglycerides Level 47, Cholesterol Level 170, LDL Cholesterol 102H, HDL Cholesterol 59, Cholesterol/HDL Ratio 2.9L, Vitamin B12 Level > 2000H, Folate [Pending], Thyroid Stimulating Hormone (TSH) 0.676, Hepatitis B Surface Antigen [Pending], Hepatitis B Surface Antibody, Quant [ Pending], Hepatitis C Antibody [Pending] 01/12/17 08:40: White Blood Count 6.4, Red Blood Count 2.57L, Hemoglobin 8.1L, Hematocrit 24.6L , Mean Corpuscular Volume 96, Mean Corpuscular Hemoglobin 31.4H, Mean Corpuscular Hemoglobin Concent 32.8, Red Cell Distribution Width 13.2, Platelet Count 151, Mean Platelet Volume 5.7L, Neutrophils (%) (Auto) 83.4H, Lymphocytes (%) (Auto) 9.6L, Monocytes (%) (Auto) 6.8, Eosinophils (%) (Auto) 0.1, Basophils (%) (Auto) 0.2 Height (Feet): 5 Height (Inches): 5.00 Weight (Pounds): 140 General Appearance: no apparent distress, other - much less SOB Neck: limited range of motion Cardiovascular: normal rate, arrhythmia Respiratory/Chest: decreased breath sounds Abdomen: soft Genitourinary/Rectal: other - stone= Edema: no edema noted Arm (L), no edema noted Arm (R), no edema noted Leg (L), no edema noted Leg (R), no edema noted Pedal (L), no edema noted Pedal (R), no edema noted Generalized Objective other PE not changed CHECO SALAZAR Jan 12, 2017 11:46
[2017-01-12 12:51] LABS: APPEARANCE,URINE CLEAR; KETONES,URINE NEGATIVE (NEGATIVE); LEUKOCYTE ESTERASE ,URINE NEGATIVE (NEGATIVE); NITRITE,URINE NEGATIVE (NEGATIVE); PH,URINE 6 (4.5-8.0); PROTEIN,URINE 3+ (NEGATIVE); UROBILINOGEN,URINE NORMAL MG/DL (0.0-1.0)
[2017-01-12 13:04] LABS: BACTERIA,URINE FEW /HPF; SQUAMOUS EPITHELIAL CELL,UR OCCASIONAL /LPF (NONE/OCC); WBC,URINE 0-2 /HPF (0 - 0)
[2017-01-12] MEDS: Tamsulosin 0.4mg cap ORAL SCH ×2 (13:39→22:01)
--- NOTE | 2017-01-12 13:40 | Pulmonology Progress Note ---
Assessment/Plan Problems: (1) Interstitial lung disease (2) COPD (chronic obstructive pulmonary disease) (3) ESRD (end stage renal disease) on dialysis (4) Acute respiratory failure Assessment/Plan improving respiratory treatment check sputum no sign of infection titrate fio2 to sat of 92% check echo f/u cardio /renal recommendations Subjective ROS Limited/Unobtainable: No Constitutional: Reports: no symptoms HEENT: Repors: no symptoms Allergies: Coded Allergies: No Known Allergies (Unverified , 12/16/14) Objective Last 24 Hour Vital Signs Date Time Temp Pulse Resp B/P Pulse Ox O2 Delivery O2 Flow Rate FiO2 01/12/17 11:54 Nasal Cannula 4.0 01/12/17 11:53 96.6 82 21 154/68 96 Nasal Cannula 4.0 01/12/17 10:30 79 20 96 4.0 36 01/12/17 09:05 81 28 100 Facial 50 01/12/17 08:30 Bi-pap 50 01/12/17 08:30 96.2 81 22 159/67 96 Bi-pap 50 01/12/17 08:00 89 01/12/17 08:00 50 01/12/17 06:38 81 30 100 Facial 50 01/12/17 05:33 140/68 01/12/17 05:25 76 33 100 Facial 50 01/12/17 04:00 96.6 77 22 140/68 99 Bi-pap 01/12/17 04:00 64 01/12/17 03:01 73 26 100 Facial 50 01/12/17 01:33 72 29 100 Facial 50 01/12/17 01:00 50 01/12/17 00:37 135/68 01/12/17 00:02 78 29 100 Facial 50 01/12/17 00:00 97.4 77 24 135/68 100 Bi-pap 01/12/17 00:00 131 01/11/17 21:12 87 23 100 Facial 50 01/11/17 21:06 152/74 01/11/17 20:20 102 162/74 01/11/17 20:00 97.8 82 18 152/74 100 Bi-pap 01/11/17 19:00 93 21 100 Facial 50 01/11/17 17:16 165/74 01/11/17 16:57 77 30 100 Facial 50 01/11/17 16:56 97.7 104 18 165/74 99 Bi-pap 01/11/17 16:28 97.7 78 20 167/67 100 Bi-pap 6.0 50 01/11/17 16:00 90 01/11/17 15:30 78 20 167/67 100 Bi-pap 50 01/11/17 14:44 78 21 100 Facial 50 01/11/17 14:30 92 26 151/63 100 Bi-pap 50 Intake and Output 01/11/17 01/12/17 19:00 07:00 Intake Total 150 ml 100 ml Output Total 500 ml 1600 ml Balance -350 ml -1500 ml Intake Oral 100 ml IV Total 150 ml Output Urine Total 500 ml 1600 ml # Voids 1 Objective got dialyzed, 1200 cc removed General Appearance: cachetic HEENT: normocephalic, atraumatic Respiratory/Chest: chest wall non-tender, decreased breath sounds, crackles/ rales Cardiovascular: normal peripheral pulses, normal rate Abdomen: normal bowel sounds, soft, non tender Genitourinary: normal external genitalia Extremities: no clubbing Skin: no lesions, no ulcers Laboratory Tests 01/11/17 17:52: Prothrombin Time 64.3H, Prothromb Time International Ratio 6.0*H 01/12/17 03:15: Prothrombin Time 19.3H, Prothromb Time International Ratio 1.9H, White Blood Count 4.5#L, Red Blood Count 2.44L, Hemoglobin 7.7L, Hematocrit 22.8L, Mean Corpuscular Volume 93, Mean Corpuscular Hemoglobin 31.6H, Mean Corpuscular Hemoglobin Concent 33.8, Red Cell Distribution Width 13.5, Platelet Count 137L, Mean Platelet Volume 5.8L, Neutrophils (%) (Auto) , Lymphocytes (%) (Auto) , Monocytes (%) (Auto) , Eosinophils (%) (Auto) , Basophils (%) (Auto) , Differential Total Cells Counted 100, Neutrophils % (Manual) 83H, Lymphocytes % (Manual) 13L, Monocytes % (Manual) 4, Eosinophils % (Manual) 0, Basophils % ( Manual) 0, Band Neutrophils 0, Platelet Estimate Adequate, Platelet Morphology Normal, Hypochromasia 1+, Sodium Level 136, Potassium Level 4.8, Chloride Level 99, Carbon Dioxide Level 19L, Anion Gap 18H, Blood Urea Nitrogen 43H, Creatinine 4.7H, Estimat Glomerular Filtration Rate , Glucose Level 130H, Uric Acid 9.3H, Calcium Level 8.0L, Phosphorus Level 4.8, Magnesium Level 2.1, Iron Level 39L, Total Iron Binding Capacity 159L, Percent Iron Saturation 25, Unsaturated Iron Binding 120, Ferritin 356H, Total Bilirubin 0.3, Aspartate Amino Transf (AST/SGOT) 17, Alanine Aminotransferase (ALT/SGPT) 14, Alkaline Phosphatase 69, Troponin I < 0.30, C-Reactive Protein, Quantitative 4.9H, Pro-B- Type Natriuretic Peptide 21094X, Total Protein 5.0L, Albumin 2.7L, Globulin 2.3 , Albumin/Globulin Ratio 1.1, Triglycerides Level 47, Cholesterol Level 170, LDL Cholesterol 102H, HDL Cholesterol 59, Cholesterol/HDL Ratio 2.9L, Vitamin B12 Level > 2000H, Thyroid Stimulating Hormone (TSH) 0.676 01/12/17 08:40: White Blood Count 6.4, Red Blood Count 2.57L, Hemoglobin 8.1L, Hematocrit 24.6L , Mean Corpuscular Volume 96, Mean Corpuscular Hemoglobin 31.4H, Mean Corpuscular Hemoglobin Concent 32.8, Red Cell Distribution Width 13.2, Platelet Count 151, Mean Platelet Volume 5.7L, Neutrophils (%) (Auto) 83.4H, Lymphocytes (%) (Auto) 9.6L, Monocytes (%) (Auto) 6.8, Eosinophils (%) (Auto) 0.1, Basophils (%) (Auto) 0.2 01/12/17 12:10: Urine Color Pale yellow, Urine Appearance Clear, Urine pH 6, Urine Specific [place] 1.010, Urine Protein 3+H, Urine Glucose (UA) 1+H, Urine Ketones Negative , Urine Occult Blood 2+H, Urine Nitrite Negative, Urine Bilirubin Negative, Urine Urobilinogen Normal, Urine Leukocyte Esterase Negative, Urine RBC 5-10H, Urine WBC 0-2, Urine Squamous Epithelial Cells Occasional, Urine Bacteria Few 01/12/17 12:45: Hepatitis A IgM Antibody [Pending], Hepatitis B Surface Antigen [Pending], Hepatitis B Core IgM Antibody [Pending], Hepatitis Be Antigen [Pending], Hepatitis C Antibody [Pending] Current Medications Medications (Trade) Dose Ordered Sig/Kris Route PRN Reason Start Time Stop Time Status Last Admin Dose Admin Acetaminophen (Tylenol) 650 mg Q4H PRN ORAL Mild Pain (Pain Scale 1-3) 01/11/17 16:30 02/10/17 16:29 Allopurinol (Zyloprim) 200 mg DAILY ORAL 01/12/17 09:00 02/11/17 08:59 01/12/17 08:44 Aspirin (ASA) 81 mg DAILY ORAL 01/12/17 09:00 02/11/17 08:59 01/12/17 08:44 Clonidine HCl (Catapres) 0.1 mg Q4H PRN ORAL bp over 160 syst 01/11/17 16:30 02/10/17 16:29 01/11/17 17:16 Epoetin Issa 88846 units 10,000 units SUN-SUN-SUN SUBQ 01/12/17 21:00 02/11/17 20:59 Finasteride (Proscar) 5 mg DAILY ORAL 01/12/17 13:00 02/11/17 12:59 Hydralazine HCl (Apresoline) 25 mg Q8HR ORAL 01/12/17 14:00 02/11/17 13:59 Iron Sucrose/ Sodium Chloride (Venofer/Sodium Chloride) 120 ml @ 240 mls/hr ONCE ONCE IVPB 01/12/17 14:00 01/12/17 14:29 Mirtazapine (Remeron) 15 mg BEDTIME ORAL 01/11/17 21:00 02/10/17 20:59 01/11/17 20:19 Morphine Sulfate (Morphine Sulfate) 2 mg Q4H PRN IM PAIN 4-10 01/11/17 17:15 01/18/17 17:14 01/11/17 22:38 Nifedipine (Procardia XL) 60 mg Q12HR ORAL 01/11/17 21:00 02/10/17 20:59 01/11/17 20:20 Pantoprazole (Protonix) 40 mg EVERY 12 HOURS ORAL 01/11/17 21:00 02/10/17 20:59 01/12/17 08:44 Tamsulosin HCl (Flomax) 0.4 mg TWICE A DAY ORAL 01/12/17 13:00 02/11/17 12:59 Trazodone HCl (Desyrel) 50 mg QHS ORAL 01/11/17 21:00 02/10/17 20:59 01/11/17 20:19 Warfarin Sodium (Coumadin per pharmacy) 1 ea DAILY PRN MISC Per rx protocol 01/11/17 16:30 02/10/17 16:29 BRITT CASEY Jan 12, 2017 13:40
[2017-01-12] MEDS ORDERED: Iron Sucrose 200 MG in NS 110 ML IVPB ONE (14:00)
[2017-01-12] MEDS ORDERED: HydrALAZINE 25mg tab ORAL SCH (14:00)
[2017-01-12] MEDS ORDERED: Warfarin Sodium 2mg ORAL ONE (17:00)
--- NOTE | 2017-01-12 20:06 | Cardiology Progress Note ---
Assessment/Plan Assessment/Plan diastolic failure systemic htn ckd advanced paf bradycardia likley sinus / avn disease pulmonary htn s/p cea s/p resection of ?kidney and partial y of liver and stomach (all per pt report) appears improved now off bipap increase hydralazine on max dose of Procardia xl needs dialysis as planned all trop neg echo with ef 50% per prelim report Subjective Cardiovascular: Denies: chest pain, lightheadedness Respiratory: Reports: shortness of breath - better Gastrointestinal/Abdominal: Denies: abdominal pain Genitourinary: Denies: burning Objective Last 24 Hour Vital Signs Date Time Temp Pulse Resp B/P Pulse Ox O2 Delivery O2 Flow Rate FiO2 01/12/17 19:21 98 Nasal Cannula 4.0 36 01/12/17 19:21 Nasal Cannula 4.0 36 01/12/17 19:17 95 18 98 4.0 36 01/12/17 16:45 80 18 94 4.0 36 01/12/17 16:00 91 01/12/17 16:00 98.2 92 20 151/64 95 Nasal Cannula 5.0 01/12/17 14:32 85 20 93 4.0 36 01/12/17 13:40 130/56 01/12/17 12:30 75 20 95 4.0 36 01/12/17 12:00 65 01/12/17 11:54 Nasal Cannula 4.0 01/12/17 11:53 96.6 82 21 154/68 96 Nasal Cannula 4.0 01/12/17 10:30 79 20 96 4.0 36 01/12/17 09:05 81 28 100 Facial 50 01/12/17 08:30 Bi-pap 50 01/12/17 08:30 96.2 81 22 159/67 96 Bi-pap 50 01/12/17 08:00 89 01/12/17 08:00 50 01/12/17 06:38 81 30 100 Facial 50 01/12/17 05:33 140/68 01/12/17 05:25 76 33 100 Facial 50 01/12/17 04:00 96.6 77 22 140/68 99 Bi-pap 01/12/17 04:00 64 01/12/17 03:01 73 26 100 Facial 50 01/12/17 01:33 72 29 100 Facial 50 01/12/17 01:00 50 01/12/17 00:37 135/68 01/12/17 00:02 78 29 100 Facial 50 01/12/17 00:00 97.4 77 24 135/68 100 Bi-pap 01/12/17 00:00 131 01/11/17 21:12 87 23 100 Facial 50 01/11/17 21:06 152/74 01/11/17 20:20 102 162/74 General Appearance: no apparent distress, alert Neck: no JVD Cardiovascular: normal rate, regular rhythm Respiratory/Chest: crackles/rales Abdomen: non tender, soft Extremities: moderate edema Intake and Output 01/11/17 01/12/17 19:00 07:00 Intake Total 150 ml 100 ml Output Total 500 ml 1600 ml Balance -350 ml -1500 ml Intake Oral 100 ml IV Total 150 ml Output Urine Total 500 ml 1600 ml # Voids 1 Laboratory Tests Test 01/12/17 03:15 01/12/17 08:40 01/12/17 12:10 01/12/17 12:45 White Blood Count 4.5 K/UL (4.8-10.8) #L 6.4 K/UL (4.8-10.8) Red Blood Count 2.44 M/UL (4.70-6.10) L 2.57 M/UL (4.70-6.10) L Hemoglobin 7.7 G/DL (14.2-18.0) L 8.1 G/DL (14.2-18.0) L Hematocrit 22.8 % (42.0-52.0) L 24.6 % (42.0-52.0) L Mean Corpuscular Volume 93 FL (80-99) 96 FL (80-99) Mean Corpuscular Hemoglobin 31.6 PG (27.0-31.0) H 31.4 PG (27.0-31.0) H Mean Corpuscular Hemoglobin Concent 33.8 G/DL (32.0-36.0) 32.8 G/DL (32.0-36.0) Red Cell Distribution Width 13.5 % (11.6-14.8) 13.2 % (11.6-14.8) Platelet Count 137 K/UL (150-450) L 151 K/UL (150-450) Mean Platelet Volume 5.8 FL (6.5-10.1) L 5.7 FL (6.5-10.1) L Neutrophils (%) (Auto) % (45.0-75.0) 83.4 % (45.0-75.0) H Lymphocytes (%) (Auto) % (20.0-45.0) 9.6 % (20.0-45.0) L Monocytes (%) (Auto) % (1.0-10.0) 6.8 % (1.0-10.0) Eosinophils (%) (Auto) % (0.0-3.0) 0.1 % (0.0-3.0) Basophils (%) (Auto) % (0.0-2.0) 0.2 % (0.0-2.0) Differential Total Cells Counted 100 Neutrophils % (Manual) 83 % (45-75) H Lymphocytes % (Manual) 13 % (20-45) L Monocytes % (Manual) 4 % (1-10) Eosinophils % (Manual) 0 % (0-3) Basophils % (Manual) 0 % (0-2) Band Neutrophils 0 % (0-8) Platelet Estimate Adequate Platelet Morphology Normal Hypochromasia 1+ Prothrombin Time 19.3 SEC (9.30-11.50) H Prothromb Time International Ratio 1.9 (0.9-1.1) H Sodium Level 136 mEQ/L (135-145) Potassium Level 4.8 mEQ/L (3.4-4.9) Chloride Level 99 mEQ/L (98-107) Carbon Dioxide Level 19 mEQ/L (20-30) L Anion Gap 18 (5-15) H Blood Urea Nitrogen 43 mg/dL (7-23) H Creatinine 4.7 mg/dL (0.7-1.2) H Estimat Glomerular Filtration Rate mL/min (>60) Glucose Level 130 mg/dL (74-106) H Uric Acid 9.3 mg/dL (3.0-7.5) H Calcium Level 8.0 mg/dL (8.6-10.2) L Phosphorus Level 4.8 mg/dL (2.5-4.8) Magnesium Level 2.1 mg/dL (1.7-2.5) Iron Level 39 ug/dL (59-158) L Total Iron Binding Capacity 159 ug/dL (250-400) L Percent Iron Saturation 25 % (15-50) Unsaturated Iron Binding 120 ug/dL (112-346) Ferritin 356 ng/mL (10-230) H Total Bilirubin 0.3 mg/dL (0.0-1.2) Aspartate Amino Transf (AST/SGOT) 17 U/L (5-40) Alanine Aminotransferase (ALT/SGPT) 14 U/L (3-41) Alkaline Phosphatase 69 U/L (40-129) Troponin I < 0.30 ng/mL (<=0.30) C-Reactive Protein, Quantitative 4.9 mg/dL (< 0.5) H Pro-B-Type Natriuretic Peptide 55563 pg/mL (0-450) H Total Protein 5.0 g/dL (6.6-8.7) L Albumin 2.7 g/dL (3.5-5.2) L Globulin 2.3 g/dL Albumin/Globulin Ratio 1.1 (1.0-2.7) Triglycerides Level 47 mg/dL (< 150) Cholesterol Level 170 mg/dL (< 200) LDL Cholesterol 102 mg/dL (60-99) H HDL Cholesterol 59 mg/dL (> 60) Cholesterol/HDL Ratio 2.9 (3.3-4.4) L Vitamin B12 Level > 2000 pg/mL (211-946) H Thyroid Stimulating Hormone (TSH) 0.676 uIU/mL (0.300-4.500) Urine Color Pale yellow Urine Appearance Clear Urine pH 6 (4.5-8.0) Urine Specific [place] 1.010 (1.005-1.035) Urine Protein 3+ (NEGATIVE) H Urine Glucose (UA) 1+ (NEGATIVE) H Urine Ketones Negative (NEGATIVE) Urine Occult Blood 2+ (NEGATIVE) H Urine Nitrite Negative (NEGATIVE) Urine Bilirubin Negative (NEGATIVE) Urine Urobilinogen Normal MG/DL (0.0-1.0) Urine Leukocyte Esterase Negative (NEGATIVE) Urine RBC 5-10 /HPF (0 - 0) H Urine WBC 0-2 /HPF (0 - 0) Urine Squamous Epithelial Cells Occasional /LPF Urine Bacteria Few /HPF (NONE) Hepatitis A IgM Antibody Pending Hepatitis B Surface Antigen Pending Hepatitis B Core IgM Antibody Pending Hepatitis Be Antigen Pending Hepatitis C Antibody Pending DARBY MARIE Jan 12, 2017 20:06
[2017-01-12] MEDS ORDERED: Epogen (for ESRD on dialysis) SUBQ SCH (21:00)
[2017-01-12] MEDS: TraZODone 50mg tab ORAL SCH (22:01)
[2017-01-13] VITALS: BP 149/63
[2017-01-13 04:00] VITALS: BP 122/60
[2017-01-13] MEDS: HydrALAZINE 25mg tab ORAL SCH ×2 (06:13→13:35)
[2017-01-13 06:18] LABS: BASOPHILS % (AUTO) 0.4 % (0.0-2.0); LYMPHOCYTES % (AUTO) 15.1 % (20.0-45.0); MEAN CORPUSCULAR HEMOGLOBIN 31.7 PG (27.0-31.0); MEAN CORPUSCULAR HGB CONC 34.3 G/DL (32.0-36.0); MEAN CORPUSCULAR VOLUME 93 FL (80-99); MONOCYTES % (AUTO) 9.7 % (1.0-10.0); NEUTROPHILS % (AUTO) 71.9 % (45.0-75.0); PLATELET COUNT 183 K/UL (150-450); RED BLOOD COUNT 2.99 M/UL (4.70-6.10); RED CELL DISTRIBUTION WIDTH 14.2 % (11.6-14.8); WHITE BLOOD COUNT 8.3 K/UL (4.8-10.8)
[2017-01-13 06:35] LABS: INR 1.1 (0.9-1.1)
[2017-01-13 06:44] LABS: ALANINE AMINOTRANSFERASE 12 U/L (3-41); ALBUMIN/GLOBULIN RATIO 1.1 (1.0-2.7); ANION GAP 13 (5-15); ASPARTATE AMINO TRANSFERASE 20 U/L (5-40); CALCIUM 7.8 mg/dL (8.6-10.2); CARBON DIOXIDE 29 mEQ/L (20-30); CHLORIDE 96 mEQ/L (98-107); CREATININE 3.3 mg/dL (0.7-1.2); HEMOLYSIS 6; MAGNESIUM 1.9 mg/dL (1.7-2.5); PHOSPHORUS 1.8 mg/dL (2.5-4.8); POTASSIUM 3.8 mEQ/L (3.4-4.9); SODIUM 138 mEQ/L (135-145); TOTAL PROTEIN 4.9 g/dL (6.6-8.7); URIC ACID 4.9 mg/dL (3.0-7.5)
[2017-01-13 08:00] VITALS: BP 121/53
[2017-01-13] MEDS: Aspirin Baby 81mg ORAL SCH (08:09)
[2017-01-13] MEDS: Allopurinol 100mg Tab ORAL SCH (08:10)
[2017-01-13] MEDS: Tamsulosin 0.4mg cap ORAL SCH ×2 (08:10→17:28)
[2017-01-13] MEDS ORDERED: Promethazine/Codeine 5ml UD ORAL ONE (09:00)
--- NOTE | 2017-01-13 09:45 | General Progress Note ---
Assessment/Plan Status: stable Assessment/Plan status: 1. Hypoxic respiratory failure, on presentation 2. Most likely volume overload secondary to worsening renal failure. 3. Hypertension. 4. Acute on chronic renal failure. 5. History of multi-infarct brain disease. 6. Hypertension. 7. Coronary artery disease. 8. History of cardiac arrhythmia 9. Anemia Plan; HD 01/12 transfused restart flomax and proscar DC stone continue Rocephin check CXY bipap to O2. Subjective ROS Limited/Unobtainable: No Respiratory: Reports: cough Allergies: Coded Allergies: No Known Allergies (Unverified , 12/16/14) Objective Last 24 Hour Vital Signs Date Time Temp Pulse Resp B/P Pulse Ox O2 Delivery O2 Flow Rate FiO2 01/13/17 08:10 76 121/51 01/13/17 06:13 122/60 01/13/17 04:00 74 01/13/17 04:00 98.2 60 20 122/60 94 Nasal Cannula 5.0 01/13/17 00:00 93 01/13/17 00:00 98.0 92 20 149/63 95 Nasal Cannula 5.0 01/12/17 22:23 160/72 01/12/17 22:21 94 160/72 01/12/17 22:01 90 149/66 01/12/17 20:00 90 01/12/17 19:21 98 Nasal Cannula 4.0 36 01/12/17 19:21 Nasal Cannula 4.0 36 01/12/17 19:17 95 18 98 4.0 36 01/12/17 19:00 99.1 93 20 149/66 96 Nasal Cannula 5.0 01/12/17 16:45 80 18 94 4.0 36 01/12/17 16:00 91 01/12/17 16:00 98.2 92 20 151/64 95 Nasal Cannula 5.0 01/12/17 14:32 85 20 93 4.0 36 01/12/17 13:40 130/56 01/12/17 12:30 75 20 95 4.0 36 01/12/17 12:00 65 01/12/17 11:54 Nasal Cannula 4.0 01/12/17 11:53 96.6 82 21 154/68 96 Nasal Cannula 4.0 01/12/17 10:30 79 20 96 4.0 36 Intake and Output 01/12/17 01/13/17 19:00 07:00 Intake Total 450 ml 320 ml Output Total 2100 ml 1500 ml Balance -1650 ml -1180 ml Intake Oral 200 ml 320 ml Blood Product 250 ml Output Urine Total 900 ml 1500 ml Hemodialysis UF 1200 ml Laboratory Tests 01/12/17 12:10: Urine Color Pale yellow, Urine Appearance Clear, Urine pH 6, Urine Specific [place] 1.010, Urine Protein 3+H, Urine Glucose (UA) 1+H, Urine Ketones Negative , Urine Occult Blood 2+H, Urine Nitrite Negative, Urine Bilirubin Negative, Urine Urobilinogen Normal, Urine Leukocyte Esterase Negative, Urine RBC 5-10H, Urine WBC 0-2, Urine Squamous Epithelial Cells Occasional, Urine Bacteria Few 01/12/17 12:45: Hepatitis A IgM Antibody [Pending], Hepatitis B Surface Antigen [Pending], Hepatitis B Core IgM Antibody [Pending], Hepatitis Be Antigen [Pending], Hepatitis C Antibody [Pending] 01/13/17 05:45: White Blood Count 8.3, Red Blood Count 2.99L, Hemoglobin 9.5L, Hematocrit 27.7L , Mean Corpuscular Volume 93, Mean Corpuscular Hemoglobin 31.7H, Mean Corpuscular Hemoglobin Concent 34.3, Red Cell Distribution Width 14.2, Platelet Count 183, Mean Platelet Volume 6.0L, Neutrophils (%) (Auto) 71.9, Lymphocytes ( %) (Auto) 15.1L, Monocytes (%) (Auto) 9.7, Eosinophils (%) (Auto) 3.0, Basophils (%) (Auto) 0.4, Prothrombin Time 11.0, Prothromb Time International Ratio 1.1, Sodium Level 138, Potassium Level 3.8, Chloride Level 96L, Carbon Dioxide Level 29, Anion Gap 13, Blood Urea Nitrogen 29H, Creatinine 3.3H, Estimat Glomerular Filtration Rate , Glucose Level 103, Uric Acid 4.9, Calcium Level 7.8L, Phosphorus Level 1.8L, Magnesium Level 1.9, Total Bilirubin 0.9, Aspartate Amino Transf (AST/SGOT) 20, Alanine Aminotransferase (ALT/SGPT) 12, Alkaline Phosphatase 69, Pro-B-Type Natriuretic Peptide 91944B, Total Protein 4.9L, Albumin 2.6L, Globulin 2.3, Albumin/Globulin Ratio 1.1 Height (Feet): 5 Height (Inches): 5.00 Weight (Pounds): 140 General Appearance: no apparent distress, other - Occ cough Neck: limited range of motion Cardiovascular: normal rate Respiratory/Chest: decreased breath sounds Abdomen: soft Objective other PE not changed CHECO SALAZAR 18, 2017 09:45
[2017-01-13] MEDS ORDERED: Promethazine/Codeine 5ml UD ORAL PRN ×2 (10:00→18:00)
[2017-01-13] MEDS ORDERED: cefTRIAXone 1 GM in D5W 55 ML IVPB SCH (10:00)
[2017-01-13 12:00] VITALS: BP 139/68
[2017-01-13] MEDS ORDERED: Iron Sucrose 200 MG in NS 110 ML IVPB ONE (12:00)
--- NOTE | 2017-01-13 12:27 | Diagnostic Imaging Report ---
Indication: Cough Comparison: 01/11/17 A single view chest radiograph was obtained. Findings: A airspace and interstitial opacities are present bilaterally with some worsening disease. There is evidence of a right pleural effusion. Heart remains enlarged. Impression: Worsening CHF
--- NOTE | 2017-01-13 13:13 | Pulmonology Progress Note ---
Assessment/Plan Assessment/Plan ASSESSMENT acute hypoxemic respiratory failure 2 to fluid overload - resolved coagulopathy 2 to Coumadin use - resolved acute on chronic renal failure ESRD, on HD anemia of chronic renal disease CHF, diastolic dysfunction HTN PAF Pulmonary HTN COPD interstitial lung disease PLAN OF CARE tele off BiPAP initial CXR with bilateral pleural effusions all troponin negative cardio follows ECHO with EF 50% O2 HHN prn respiratory status improved: no evidence of infection, no evidence of COPD exacerbation acute respiratory failure likely 2 to fluid overload Venofer x 1 on EPO monitor HH , transfuse prn continue ASA, BP management with BB, CCB and Hydralazine resumed a/coagulation with Coumadin after coagulopathy corrected with vitamin K , keep INR in therapeutic range 2-3 , while in the hospital as per pharmacy GI prophylaxis case discussed and evaluated by supervising physician Subjective Allergies: Coded Allergies: No Known Allergies (Unverified , 12/16/14) Subjective denies chest pain, SOB, feeling better on O2 via NC, pulse ox stable Objective Last 24 Hour Vital Signs Date Time Temp Pulse Resp B/P Pulse Ox O2 Delivery O2 Flow Rate FiO2 01/13/17 12:00 95 01/13/17 08:10 76 121/51 01/13/17 08:00 97.0 76 24 121/53 92 Nasal Cannula 4.0 01/13/17 08:00 77 01/13/17 06:13 122/60 01/13/17 04:00 74 01/13/17 04:00 98.2 60 20 122/60 94 Nasal Cannula 5.0 01/13/17 00:00 93 01/13/17 00:00 98.0 92 20 149/63 95 Nasal Cannula 5.0 01/12/17 22:23 160/72 01/12/17 22:21 94 160/72 01/12/17 22:01 90 149/66 01/12/17 20:00 90 01/12/17 19:21 98 Nasal Cannula 4.0 36 01/12/17 19:21 Nasal Cannula 4.0 36 01/12/17 19:17 95 18 98 4.0 36 01/12/17 19:00 99.1 93 20 149/66 96 Nasal Cannula 5.0 01/12/17 16:45 80 18 94 4.0 36 01/12/17 16:00 91 01/12/17 16:00 98.2 92 20 151/64 95 Nasal Cannula 5.0 01/12/17 14:32 85 20 93 4.0 36 01/12/17 13:40 130/56 Intake and Output 01/12/17 01/13/17 19:00 07:00 Intake Total 450 ml 320 ml Output Total 2100 ml 1500 ml Balance -1650 ml -1180 ml Intake Oral 200 ml 320 ml Blood Product 250 ml Output Urine Total 900 ml 1500 ml Hemodialysis UF 1200 ml General Appearance: no acute distress HEENT: normocephalic, atraumatic, anicteric, mucous membranes moist Respiratory/Chest: lungs clear - with moderate air entry , no respiratory distress, no accessory muscle use Cardiovascular: normal rate, regular rhythm - SR on tele , other - LUE AV shunt + thrill/bruit Abdomen: normal bowel sounds, soft, non tender, non distended Genitourinary: normal external genitalia Neurologic/Psychiatric: abnormal gait, alert, responsive Musculoskeletal: atrophy - BLE Microbiology Date/Time Source Procedure Growth Status 01/11/17 13:10 Blood Blood Culture - Preliminary NO GROWTH AFTER 24 HOURS Resulted 01/11/17 13:00 Blood Blood Culture - Preliminary NO GROWTH AFTER 24 HOURS Resulted 01/11/17 12:20 Nasal Nares MRSA Culture - Final NO METHICILLIN RESISTANT STAPH AUREUS... Complete Laboratory Tests 01/13/17 05:45: White Blood Count 8.3, Red Blood Count 2.99L, Hemoglobin 9.5L, Hematocrit 27.7L , Mean Corpuscular Volume 93, Mean Corpuscular Hemoglobin 31.7H, Mean Corpuscular Hemoglobin Concent 34.3, Red Cell Distribution Width 14.2, Platelet Count 183, Mean Platelet Volume 6.0L, Neutrophils (%) (Auto) 71.9, Lymphocytes ( %) (Auto) 15.1L, Monocytes (%) (Auto) 9.7, Eosinophils (%) (Auto) 3.0, Basophils (%) (Auto) 0.4, Prothrombin Time 11.0, Prothromb Time International Ratio 1.1, Sodium Level 138, Potassium Level 3.8, Chloride Level 96L, Carbon Dioxide Level 29, Anion Gap 13, Blood Urea Nitrogen 29H, Creatinine 3.3H, Estimat Glomerular Filtration Rate , Glucose Level 103, Uric Acid 4.9, Calcium Level 7.8L, Phosphorus Level 1.8L, Magnesium Level 1.9, Total Bilirubin 0.9, Aspartate Amino Transf (AST/SGOT) 20, Alanine Aminotransferase (ALT/SGPT) 12, Alkaline Phosphatase 69, Pro-B-Type Natriuretic Peptide 21529O, Total Protein 4.9L, Albumin 2.6L, Globulin 2.3, Albumin/Globulin Ratio 1.1 Current Medications Medications (Trade) Dose Ordered Sig/Kris Route PRN Reason Start Time Stop Time Status Last Admin Dose Admin Acetaminophen (Tylenol) 650 mg Q4H PRN ORAL Mild Pain (Pain Scale 1-3) 01/11/17 16:30 02/10/17 16:29 Allopurinol (Zyloprim) 200 mg DAILY ORAL 01/12/17 09:00 02/11/17 08:59 01/13/17 08:10 Aspirin (ASA) 81 mg DAILY ORAL 01/12/17 09:00 02/11/17 08:59 01/13/17 08:09 Ceftriaxone Sodium/Dextrose (Rocephin/D5W) 55 ml @ 110 mls/hr Q24H IVPB 01/13/17 10:00 01/20/17 09:59 01/13/17 10:10 Clonidine HCl (Catapres) 0.1 mg Q4H PRN ORAL bp over 160 syst 01/11/17 16:30 02/10/17 16:29 01/11/17 17:16 Epoetin Issa (Procrit (for ESRD on dialysis)) 10,000 units SUN-SUN-SUN SUBQ 01/12/17 21:00 02/11/17 20:59 01/12/17 21:59 Finasteride (Proscar) 5 mg DAILY ORAL 01/12/17 13:00 02/11/17 12:59 01/13/17 08:10 Hydralazine HCl 50 mg 50 mg Q8HR ORAL 01/12/17 22:00 02/11/17 21:59 01/13/17 06:13 Mirtazapine (Remeron) 15 mg BEDTIME ORAL 01/11/17 21:00 02/10/17 20:59 01/12/17 22:01 Morphine Sulfate (Morphine Sulfate) 2 mg Q4H PRN IM PAIN 4-10 01/11/17 17:15 01/18/17 17:14 01/11/17 22:38 Nifedipine (Procardia XL) 60 mg DAILY ORAL 01/14/17 09:00 02/13/17 08:59 Pantoprazole (Protonix) 40 mg EVERY 12 HOURS ORAL 01/11/17 21:00 02/10/17 20:59 01/13/17 08:09 Promethazine HCl/ Codeine (Phenergan with Codeine) 5 ml Q4H PRN ORAL For Cough 01/13/17 10:00 02/12/17 09:59 Tamsulosin HCl (Flomax) 0.4 mg TWICE A DAY ORAL 01/12/17 13:00 02/11/17 12:59 01/13/17 08:10 Trazodone HCl (Desyrel) 50 mg QHS ORAL 01/11/17 21:00 02/10/17 20:59 01/12/17 22:01 Warfarin Sodium (Coumadin per pharmacy) 1 ea DAILY PRN MISC Per rx protocol 01/11/17 16:30 02/10/17 16:29 Warfarin Sodium (Coumadin) 4 mg COUMADIN PO 01/13/17 17:00 01/18/17 16:59 Alvaro ([facility])Breonna NP Jan 13, 2017 13:13
[2017-01-13 16:00] VITALS: BP 143/65
[2017-01-13] MEDS ORDERED: Warfarin Sodium 4mg PO SCH (17:00)
[2017-01-13] MEDS ORDERED: Morphine Sulfate 2mg/ml Inj IM PRN (17:15)
[2017-01-13] MEDS: Warfarin Sodium 4mg PO SCH (17:28)
--- NOTE | 2017-01-13 17:35 | Cardiology Progress Note ---
Assessment/Plan Assessment/Plan respiratory insufficiency fluid overloar renal insufficiency patient responded to diuretics his CXR significant for fluid overload Subjective Subjective the patient is sitting in his bed, he reports feeling better, but still SOB no chest pain Objective Last 24 Hour Vital Signs Date Time Temp Pulse Resp B/P Pulse Ox O2 Delivery O2 Flow Rate FiO2 01/13/17 13:35 139/68 01/13/17 12:00 95 01/13/17 12:00 97.7 101 20 139/68 95 Nasal Cannula 4.0 01/13/17 08:10 76 121/51 01/13/17 08:00 97.0 76 24 121/53 92 Nasal Cannula 4.0 01/13/17 08:00 77 01/13/17 06:13 122/60 01/13/17 04:00 74 01/13/17 04:00 98.2 60 20 122/60 94 Nasal Cannula 5.0 01/13/17 00:00 93 01/13/17 00:00 98.0 92 20 149/63 95 Nasal Cannula 5.0 01/12/17 22:23 160/72 01/12/17 22:21 94 160/72 01/12/17 22:01 90 149/66 01/12/17 20:00 90 01/12/17 19:21 98 Nasal Cannula 4.0 36 01/12/17 19:21 Nasal Cannula 4.0 36 01/12/17 19:17 95 18 98 4.0 36 01/12/17 19:00 99.1 93 20 149/66 96 Nasal Cannula 5.0 General Appearance: moderate distress EENT: PERRL/EOMI Neck: JVD Rhythm: NSR Cardiovascular: tachycardia Respiratory/Chest: crackles/rales Abdomen: soft, other - post srugical scar Extremities: no swelling 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 II-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 grossly normal Intake and Output 01/12/17 01/13/17 19:00 07:00 Intake Total 450 ml 320 ml Output Total 2100 ml 1500 ml Balance -1650 ml -1180 ml Intake Oral 200 ml 320 ml Blood Product 250 ml Output Urine Total 900 ml 1500 ml Hemodialysis UF 1200 ml Laboratory Tests Test 01/13/17 05:45 White Blood Count 8.3 K/UL (4.8-10.8) Red Blood Count 2.99 M/UL (4.70-6.10) L Hemoglobin 9.5 G/DL (14.2-18.0) L Hematocrit 27.7 % (42.0-52.0) L Mean Corpuscular Volume 93 FL (80-99) Mean Corpuscular Hemoglobin 31.7 PG (27.0-31.0) H Mean Corpuscular Hemoglobin Concent 34.3 G/DL (32.0-36.0) Red Cell Distribution Width 14.2 % (11.6-14.8) Platelet Count 183 K/UL (150-450) Mean Platelet Volume 6.0 FL (6.5-10.1) L Neutrophils (%) (Auto) 71.9 % (45.0-75.0) Lymphocytes (%) (Auto) 15.1 % (20.0-45.0) L Monocytes (%) (Auto) 9.7 % (1.0-10.0) Eosinophils (%) (Auto) 3.0 % (0.0-3.0) Basophils (%) (Auto) 0.4 % (0.0-2.0) Prothrombin Time 11.0 SEC (9.30-11.50) Prothromb Time International Ratio 1.1 (0.9-1.1) Sodium Level 138 mEQ/L (135-145) Potassium Level 3.8 mEQ/L (3.4-4.9) Chloride Level 96 mEQ/L (98-107) L Carbon Dioxide Level 29 mEQ/L (20-30) Anion Gap 13 (5-15) Blood Urea Nitrogen 29 mg/dL (7-23) H Creatinine 3.3 mg/dL (0.7-1.2) H Estimat Glomerular Filtration Rate mL/min (>60) Glucose Level 103 mg/dL (74-106) Uric Acid 4.9 mg/dL (3.0-7.5) Calcium Level 7.8 mg/dL (8.6-10.2) L Phosphorus Level 1.8 mg/dL (2.5-4.8) L Magnesium Level 1.9 mg/dL (1.7-2.5) Total Bilirubin 0.9 mg/dL (0.0-1.2) Aspartate Amino Transf (AST/SGOT) 20 U/L (5-40) Alanine Aminotransferase (ALT/SGPT) 12 U/L (3-41) Alkaline Phosphatase 69 U/L (40-129) Pro-B-Type Natriuretic Peptide 45381 pg/mL (0-450) H Total Protein 4.9 g/dL (6.6-8.7) L Albumin 2.6 g/dL (3.5-5.2) L Globulin 2.3 g/dL Albumin/Globulin Ratio 1.1 (1.0-2.7) Microbiology Date/Time Source Procedure Growth Status 01/11/17 13:10 Blood Blood Culture - Preliminary NO GROWTH AFTER 24 HOURS Resulted 01/11/17 13:00 Blood Blood Culture - Preliminary NO GROWTH AFTER 24 HOURS Resulted 01/11/17 12:20 Nasal Nares MRSA Culture - Final NO METHICILLIN RESISTANT STAPH AUREUS... Complete NADINE SCHRADER Jan 13, 2017 17:35
[2017-01-13] MEDS ORDERED: DuoNeb 0.5-3(2.5)mg/3ml neb HHN PRN (19:30)
[2017-01-13 20:00] VITALS: BP 141/60
[2017-01-13] MEDS ORDERED: TraZODone 50mg tab ORAL SCH (21:00)
[2017-01-13] MEDS: HydrALAZINE 50mg tab ORAL SCH (21:28)
[2017-01-14] VITALS: BP 150/68
[2017-01-14 04:00] VITALS: BP 143/62
[2017-01-14] MEDS: HydrALAZINE 50mg tab ORAL SCH ×3 (05:22→21:24)
[2017-01-14 08:00] VITALS: BP 149/68
[2017-01-14 08:04] LABS: BASOPHILS % (AUTO) 0.5 % (0.0-2.0); EOSINOPHILS % (AUTO) 6.8 % (0.0-3.0); LYMPHOCYTES % (AUTO) 13.4 % (20.0-45.0); MEAN CORPUSCULAR HEMOGLOBIN 30.8 PG (27.0-31.0); MEAN CORPUSCULAR VOLUME 93 FL (80-99); MEAN PLATELET VOLUME 6.6 FL (6.5-10.1); MONOCYTES % (AUTO) 8.1 % (1.0-10.0); NEUTROPHILS % (AUTO) 71.2 % (45.0-75.0); PLATELET COUNT 205 K/UL (150-450); RED BLOOD COUNT 3.13 M/UL (4.70-6.10); RED CELL DISTRIBUTION WIDTH 13.5 % (11.6-14.8); WHITE BLOOD COUNT 7.3 K/UL (4.8-10.8)
[2017-01-14 08:16] LABS: INR 1.1 (0.9-1.1); PROTHROMBIN TIME 10.3 SEC (9.30-11.50)
[2017-01-14 08:26] LABS: ALANINE AMINOTRANSFERASE 11 U/L (3-41); ALBUMIN/GLOBULIN RATIO 1.3 (1.0-2.7); ANION GAP 15 (5-15); ASPARTATE AMINO TRANSFERASE 18 U/L (5-40); CALCIUM 8.1 mg/dL (8.6-10.2); CARBON DIOXIDE 28 mEQ/L (20-30); CHLORIDE 99 mEQ/L (98-107); CREATININE 3.8 mg/dL (0.7-1.2); HEMOLYSIS 4; MAGNESIUM 1.9 mg/dL (1.7-2.5); PHOSPHORUS 2.2 mg/dL (2.5-4.8); POTASSIUM 3.4 mEQ/L (3.4-4.9); SODIUM 142 mEQ/L (135-145); TOTAL PROTEIN 5.1 g/dL (6.6-8.7); URIC ACID 5.8 mg/dL (3.0-7.5)
[2017-01-14] MEDS ORDERED: Aspirin Baby 81mg ORAL SCH (09:00)
[2017-01-14] MEDS ORDERED: Allopurinol 100mg Tab ORAL SCH (09:00)
--- NOTE | 2017-01-14 09:49 | Pulmonology Progress Note ---
Assessment/Plan Assessment/Plan ASSESSMENT acute hypoxemic respiratory failure 2 to fluid overload - resolved coagulopathy 2 to Coumadin use - resolved acute on chronic renal failure ESRD, on HD anemia of chronic renal disease CHF, diastolic dysfunction HTN PAF Pulmonary HTN COPD interstitial lung disease PLAN OF CARE tele off BiPAP initial CXR with bilateral pleural effusions all troponin negative cardio follows ECHO with EF 50% O2 HHN prn respiratory status improved: no evidence of infection, no evidence of COPD exacerbation acute respiratory failure likely 2 to fluid overload CXR 01/13 -with airspace and interstitial opacities a t bilaterally with some worsening CXR done prior to HD clinically with significant improvement Venofer x 1 on EPO monitor HH , transfuse prn continue ASA, BP management with BB, CCB and Hydralazine resumed a/coagulation with Coumadin after coagulopathy corrected with vitamin K , keep INR in therapeutic range 2-3 , while in the hospital as per pharmacy GI prophylaxis case discussed and evaluated by supervising physician Subjective Allergies: Coded Allergies: No Known Allergies (Unverified , 12/16/14) Subjective denies chest pain, SOB, feeling better on O2 via NC, pulse ox stable Objective Last 24 Hour Vital Signs Date Time Temp Pulse Resp B/P Pulse Ox O2 Delivery O2 Flow Rate FiO2 01/14/17 07:18 Nasal Cannula 4.0 36 01/14/17 07:18 97 Nasal Cannula 4.0 36 01/14/17 07:17 78 24 Nasal Cannula 4.0 01/14/17 05:22 143/62 01/14/17 04:00 88 01/14/17 04:00 97.9 96 16 143/62 98 Nasal Cannula 4.0 01/14/17 00:00 98.2 107 16 150/68 94 Room Air 01/14/17 00:00 102 01/13/17 21:28 141/60 01/13/17 20:00 94 01/13/17 20:00 98.4 96 20 141/60 Nasal Cannula 2.0 97 01/13/17 20:00 Nasal Cannula 4.0 36 01/13/17 20:00 96 Nasal Cannula 4.0 36 01/13/17 16:00 98.6 94 19 143/65 Nasal Cannula 2.0 96 01/13/17 16:00 95 01/13/17 13:35 139/68 01/13/17 12:00 95 01/13/17 12:00 97.7 101 20 139/68 95 Nasal Cannula 4.0 Intake and Output 01/13/17 01/14/17 19:00 07:00 Intake Total 295 ml 480 ml Output Total 500 ml 1200 ml Balance -205 ml -720 ml Intake Oral 120 ml 480 ml IV Total 175 ml Output Urine Total 500 ml 1200 ml # Voids 3 Microbiology Date/Time Source Procedure Growth Status 01/11/17 13:10 Blood Blood Culture - Preliminary NO GROWTH AFTER 48 HOURS Resulted 01/11/17 13:00 Blood Blood Culture - Preliminary NO GROWTH AFTER 48 HOURS Resulted 01/11/17 12:20 Nasal Nares MRSA Culture - Final NO METHICILLIN RESISTANT STAPH AUREUS... Complete Laboratory Tests 01/14/17 05:50: White Blood Count 7.3, Red Blood Count 3.13L, Hemoglobin 9.6L, Hematocrit 29.2L , Mean Corpuscular Volume 93, Mean Corpuscular Hemoglobin 30.8, Mean Corpuscular Hemoglobin Concent 33.0, Red Cell Distribution Width 13.5, Platelet Count 205, Mean Platelet Volume 6.6, Neutrophils (%) (Auto) 71.2, Lymphocytes (% ) (Auto) 13.4L, Monocytes (%) (Auto) 8.1, Eosinophils (%) (Auto) 6.8H, Basophils (%) (Auto) 0.5, Prothrombin Time 10.3, Prothromb Time International Ratio 1.1, Sodium Level 142, Potassium Level 3.4, Chloride Level 99, Carbon Dioxide Level 28, Anion Gap 15, Blood Urea Nitrogen 32H, Creatinine 3.8H, Estimat Glomerular Filtration Rate , Glucose Level 88, Uric Acid 5.8, Calcium Level 8.1L, Phosphorus Level 2.2L, Magnesium Level 1.9, Total Bilirubin 0.6, Aspartate Amino Transf (AST/SGOT) 18, Alanine Aminotransferase (ALT/SGPT) 11, Alkaline Phosphatase 72, Pro-B-Type Natriuretic Peptide 15179O, Total Protein 5.1L, Albumin 2.9L, Globulin 2.2, Albumin/Globulin Ratio 1.3 Current Medications Medications (Trade) Dose Ordered Sig/Kris Route PRN Reason Start Time Stop Time Status Last Admin Dose Admin Acetaminophen (Tylenol) 650 mg Q4H PRN ORAL Mild Pain (Pain Scale 1-3) 01/13/17 16:30 02/12/17 16:29 Albuterol/ Ipratropium (DuoNeb 0.5-3(2.5)mg/3ml) 3 ml Q4H PRN HHN Shortness of Breath 01/13/17 19:30 01/18/17 19:29 Allopurinol (Zyloprim) 200 mg DAILY ORAL 01/14/17 09:00 02/13/17 08:59 Aspirin (ASA) 81 mg DAILY ORAL 01/14/17 09:00 02/13/17 08:59 Ceftriaxone Sodium/Dextrose (Rocephin/D5W) 55 ml @ 110 mls/hr Q24H IVPB 01/14/17 10:00 01/21/17 09:59 Clonidine HCl (Catapres) 0.1 mg Q4H PRN ORAL bp over 160 syst 01/13/17 16:30 02/12/17 16:29 Epoetin Issa (Procrit (for ESRD on dialysis)) 10,000 units SUN-SUN-SUN SUBQ 01/15/17 21:00 02/14/17 20:59 Finasteride (Proscar) 5 mg DAILY ORAL 01/14/17 09:00 02/13/17 08:59 Hydralazine HCl (Apresoline) 50 mg Q8HR ORAL 01/13/17 22:00 02/12/17 21:59 01/14/17 05:22 Mirtazapine (Remeron) 15 mg BEDTIME ORAL 01/13/17 21:00 02/12/17 20:59 01/13/17 21:28 Morphine Sulfate (Morphine Sulfate) 2 mg Q4H PRN IM PAIN 4-10 01/13/17 17:15 01/20/17 17:14 Nifedipine (Procardia XL) 60 mg DAILY ORAL 01/14/17 09:00 02/13/17 08:59 Pantoprazole (Protonix) 40 mg EVERY 12 HOURS ORAL 01/13/17 21:00 02/12/17 20:59 01/13/17 21:28 Promethazine HCl/ Codeine (Phenergan with Codeine) 5 ml Q4H PRN ORAL For Cough 01/13/17 18:00 02/12/17 17:59 Tamsulosin HCl (Flomax) 0.4 mg TWICE A DAY ORAL 01/13/17 18:00 02/12/17 17:59 01/13/17 17:28 Trazodone HCl (Desyrel) 50 mg QHS ORAL 01/13/17 21:00 02/12/17 20:59 01/13/17 21:28 Warfarin Sodium (Coumadin per pharmacy) 1 ea DAILY PRN MISC Per rx protocol 01/13/17 17:00 02/12/17 16:59 Warfarin Sodium (Coumadin) 4 mg COUMADIN PO 01/13/17 17:00 01/18/17 16:59 01/13/17 17:28 Alvaro ([facility])Breonna NP Jan 14, 2017 09:49
[2017-01-14] MEDS ORDERED: cefTRIAXone 1 GM in D5W 55 ML IVPB SCH (10:00)
[2017-01-14] MEDS: Tamsulosin 0.4mg cap ORAL SCH ×2 (10:07→21:16)
[2017-01-14 12:00] VITALS: BP 138/75
--- NOTE | 2017-01-14 12:57 | General Progress Note ---
Assessment/Plan Status: stable Assessment/Plan status: 1. Hypoxic respiratory failure, on presentation 2. Most likely volume overload secondary to worsening renal failure. 3. Hypertension. 4. Acute on chronic renal failure. 5. History of multi-infarct brain disease. 6. Hypertension. 7. Coronary artery disease. 8. History of cardiac arrhythmia 9. Anemia Plan; HD 01/12 transfused restart flomax and proscar DC stone continue Rocephin check CXY bipap to O2. med surg Subjective ROS Limited/Unobtainable: No Constitutional: Reports: malaise Allergies: Coded Allergies: No Known Allergies (Unverified , 12/16/14) Objective Last 24 Hour Vital Signs Date Time Temp Pulse Resp B/P Pulse Ox O2 Delivery O2 Flow Rate FiO2 01/14/17 12:00 94 01/14/17 12:00 98.1 53 20 138/75 94 Nasal Cannula 3.0 01/14/17 10:08 93 149/68 01/14/17 08:00 97.0 93 20 149/68 97 Nasal Cannula 4.0 01/14/17 08:00 102 01/14/17 07:18 Nasal Cannula 4.0 36 01/14/17 07:18 97 Nasal Cannula 4.0 36 01/14/17 07:17 78 24 Nasal Cannula 4.0 01/14/17 05:22 143/62 01/14/17 04:00 88 01/14/17 04:00 97.9 96 16 143/62 98 Nasal Cannula 4.0 01/14/17 00:00 98.2 107 16 150/68 94 Room Air 01/14/17 00:00 102 01/13/17 21:28 141/60 01/13/17 20:00 94 01/13/17 20:00 98.4 96 20 141/60 Nasal Cannula 2.0 97 01/13/17 20:00 Nasal Cannula 4.0 36 01/13/17 20:00 96 Nasal Cannula 4.0 36 01/13/17 16:00 98.6 94 19 143/65 Nasal Cannula 2.0 96 01/13/17 16:00 95 01/13/17 13:35 139/68 Intake and Output 01/13/17 01/14/17 19:00 07:00 Intake Total 295 ml 480 ml Output Total 500 ml 1200 ml Balance -205 ml -720 ml Intake Oral 120 ml 480 ml IV Total 175 ml Output Urine Total 500 ml 1200 ml # Voids 3 Laboratory Tests 01/14/17 05:50: White Blood Count 7.3, Red Blood Count 3.13L, Hemoglobin 9.6L, Hematocrit 29.2L , Mean Corpuscular Volume 93, Mean Corpuscular Hemoglobin 30.8, Mean Corpuscular Hemoglobin Concent 33.0, Red Cell Distribution Width 13.5, Platelet Count 205, Mean Platelet Volume 6.6, Neutrophils (%) (Auto) 71.2, Lymphocytes (% ) (Auto) 13.4L, Monocytes (%) (Auto) 8.1, Eosinophils (%) (Auto) 6.8H, Basophils (%) (Auto) 0.5, Prothrombin Time 10.3, Prothromb Time International Ratio 1.1, Sodium Level 142, Potassium Level 3.4, Chloride Level 99, Carbon Dioxide Level 28, Anion Gap 15, Blood Urea Nitrogen 32H, Creatinine 3.8H, Estimat Glomerular Filtration Rate , Glucose Level 88, Uric Acid 5.8, Calcium Level 8.1L, Phosphorus Level 2.2L, Magnesium Level 1.9, Total Bilirubin 0.6, Aspartate Amino Transf (AST/SGOT) 18, Alanine Aminotransferase (ALT/SGPT) 11, Alkaline Phosphatase 72, Pro-B-Type Natriuretic Peptide 84698Q, Total Protein 5.1L, Albumin 2.9L, Globulin 2.2, Albumin/Globulin Ratio 1.3 Height (Feet): 5 Height (Inches): 5.00 Weight (Pounds): 140 General Appearance: no apparent distress Cardiovascular: normal rate Respiratory/Chest: decreased breath sounds Objective other PE not changed CHECO SALAZAR Jan 14, 2017 12:57
[2017-01-14] MEDS ORDERED: Phospha 250 Neutral tab ORAL ONE (13:30)
--- NOTE | 2017-01-14 14:06 | Cardiology Progress Note ---
Assessment/Plan Assessment/Plan respiratory insufficiency fluid overloar renal insufficiency patient responded to diuretics his CXR significant for fluid overload improved replace K Subjective Subjective the patient is sitting in his bed, he reports feeling better, but still SOB no chest pain Objective Last 24 Hour Vital Signs Date Time Temp Pulse Resp B/P Pulse Ox O2 Delivery O2 Flow Rate FiO2 01/14/17 12:00 94 01/14/17 12:00 98.1 53 20 138/75 94 Nasal Cannula 3.0 01/14/17 10:08 93 149/68 01/14/17 08:00 97.0 93 20 149/68 97 Nasal Cannula 4.0 01/14/17 08:00 102 01/14/17 07:18 Nasal Cannula 4.0 36 01/14/17 07:18 97 Nasal Cannula 4.0 36 01/14/17 07:17 78 24 Nasal Cannula 4.0 01/14/17 05:22 143/62 01/14/17 04:00 88 01/14/17 04:00 97.9 96 16 143/62 98 Nasal Cannula 4.0 01/14/17 00:00 98.2 107 16 150/68 94 Room Air 01/14/17 00:00 102 01/13/17 21:28 141/60 01/13/17 20:00 94 01/13/17 20:00 98.4 96 20 141/60 Nasal Cannula 2.0 97 01/13/17 20:00 Nasal Cannula 4.0 36 01/13/17 20:00 96 Nasal Cannula 4.0 36 01/13/17 16:00 98.6 94 19 143/65 Nasal Cannula 2.0 96 01/13/17 16:00 95 General Appearance: moderate distress EENT: PERRL/EOMI Neck: supple, JVD Rhythm: NSR Cardiovascular: normal rate Respiratory/Chest: accessory muscle use, crackles/rales Extremities: no swelling Intake and Output 01/13/17 01/14/17 19:00 07:00 Intake Total 295 ml 480 ml Output Total 500 ml 1200 ml Balance -205 ml -720 ml Intake Oral 120 ml 480 ml IV Total 175 ml Output Urine Total 500 ml 1200 ml # Voids 3 Laboratory Tests Test 01/14/17 05:50 White Blood Count 7.3 K/UL (4.8-10.8) Red Blood Count 3.13 M/UL (4.70-6.10) L Hemoglobin 9.6 G/DL (14.2-18.0) L Hematocrit 29.2 % (42.0-52.0) L Mean Corpuscular Volume 93 FL (80-99) Mean Corpuscular Hemoglobin 30.8 PG (27.0-31.0) Mean Corpuscular Hemoglobin Concent 33.0 G/DL (32.0-36.0) Red Cell Distribution Width 13.5 % (11.6-14.8) Platelet Count 205 K/UL (150-450) Mean Platelet Volume 6.6 FL (6.5-10.1) Neutrophils (%) (Auto) 71.2 % (45.0-75.0) Lymphocytes (%) (Auto) 13.4 % (20.0-45.0) L Monocytes (%) (Auto) 8.1 % (1.0-10.0) Eosinophils (%) (Auto) 6.8 % (0.0-3.0) H Basophils (%) (Auto) 0.5 % (0.0-2.0) Prothrombin Time 10.3 SEC (9.30-11.50) Prothromb Time International Ratio 1.1 (0.9-1.1) Sodium Level 142 mEQ/L (135-145) Potassium Level 3.4 mEQ/L (3.4-4.9) Chloride Level 99 mEQ/L (98-107) Carbon Dioxide Level 28 mEQ/L (20-30) Anion Gap 15 (5-15) Blood Urea Nitrogen 32 mg/dL (7-23) H Creatinine 3.8 mg/dL (0.7-1.2) H Estimat Glomerular Filtration Rate mL/min (>60) Glucose Level 88 mg/dL (74-106) Uric Acid 5.8 mg/dL (3.0-7.5) Calcium Level 8.1 mg/dL (8.6-10.2) L Phosphorus Level 2.2 mg/dL (2.5-4.8) L Magnesium Level 1.9 mg/dL (1.7-2.5) Total Bilirubin 0.6 mg/dL (0.0-1.2) Aspartate Amino Transf (AST/SGOT) 18 U/L (5-40) Alanine Aminotransferase (ALT/SGPT) 11 U/L (3-41) Alkaline Phosphatase 72 U/L (40-129) Pro-B-Type Natriuretic Peptide 37152 pg/mL (0-450) H Total Protein 5.1 g/dL (6.6-8.7) L Albumin 2.9 g/dL (3.5-5.2) L Globulin 2.2 g/dL Albumin/Globulin Ratio 1.3 (1.0-2.7) NADINE SCHRADER Jan 14, 2017 14:06
[2017-01-14 16:00] VITALS: BP 121/55
[2017-01-14] MEDS ORDERED: Promethazine/Codeine 5ml UD ORAL PRN (18:30)
[2017-01-14 19:00] VITALS: BP 136/64
[2017-01-14] MEDS ORDERED: Morphine Sulfate 2mg/ml Inj IM PRN (19:00)
[2017-01-14] MEDS ORDERED: DuoNeb 0.5-3(2.5)mg/3ml neb HHN PRN (19:30)
[2017-01-14] MEDS: Warfarin Sodium 4mg PO SCH (21:14)
[2017-01-14] MEDS: TraZODone 50mg tab ORAL SCH (21:16)
[2017-01-15] VITALS (7 sets, daily range): BP systolic 117–146; BP diastolic 42–86
[2017-01-15] MEDS: HydrALAZINE 50mg tab ORAL SCH ×3 (05:46→21:04)
[2017-01-15 07:01] LABS: INR 1.3 (0.9-1.1); PROTHROMBIN TIME 13.2 SEC (9.30-11.50)
[2017-01-15 07:08] LABS: BASOPHILS % (AUTO) 0.7 % (0.0-2.0); EOSINOPHILS % (AUTO) 7.1 % (0.0-3.0); LYMPHOCYTES % (AUTO) 10.8 % (20.0-45.0); MEAN CORPUSCULAR HEMOGLOBIN 30.8 PG (27.0-31.0); MEAN CORPUSCULAR VOLUME 93 FL (80-99); MEAN PLATELET VOLUME 6.2 FL (6.5-10.1); MONOCYTES % (AUTO) 9.3 % (1.0-10.0); NEUTROPHILS % (AUTO) 72.2 % (45.0-75.0); PLATELET COUNT 205 K/UL (150-450); RED BLOOD COUNT 2.91 M/UL (4.70-6.10); RED CELL DISTRIBUTION WIDTH 13.3 % (11.6-14.8); WHITE BLOOD COUNT 8.4 K/UL (4.8-10.8)
[2017-01-15 07:20] LABS: ALANINE AMINOTRANSFERASE 10 U/L (3-41); ANION GAP 14 (5-15); ASPARTATE AMINO TRANSFERASE 17 U/L (5-40); CALCIUM 8.1 mg/dL (8.6-10.2); CARBON DIOXIDE 27 mEQ/L (20-30); CHLORIDE 99 mEQ/L (98-107); CREATININE 4.3 mg/dL (0.7-1.2); HEMOLYSIS 8; PHOSPHORUS 3.4 mg/dL (2.5-4.8); POTASSIUM 3.7 mEQ/L (3.4-4.9); SODIUM 140 mEQ/L (135-145); TOTAL PROTEIN 5.1 g/dL (6.6-8.7); URIC ACID 6.2 mg/dL (3.0-7.5)
[2017-01-15] MEDS: Tamsulosin 0.4mg cap ORAL SCH ×2 (11:33→17:13)
[2017-01-15] MEDS: Aspirin Baby 81mg ORAL SCH (11:34)
[2017-01-15] MEDS: Allopurinol 100mg Tab ORAL SCH (11:34)
--- NOTE | 2017-01-15 14:44 | General Progress Note ---
Assessment/Plan Status: stable Status Narrative HD in progress Assessment/Plan status: 1. Hypoxic respiratory failure, on presentation 2. Most likely volume overload secondary to worsening renal failure. 3. Hypertension. 4. Acute on chronic renal failure. 5. History of multi-infarct brain disease. 6. Hypertension. 7. Coronary artery disease. 8. History of cardiac arrhythmia 9. Anemia Plan; HD 01/15 in progress transfused restart flomax and proscar DC stone continue Rocephin check CXY bipap to O2. med surg Dc planning Subjective ROS Limited/Unobtainable: No Constitutional: Reports: malaise Allergies: Coded Allergies: No Known Allergies (Unverified , 12/16/14) Objective Last 24 Hour Vital Signs Date Time Temp Pulse Resp B/P Pulse Ox O2 Delivery O2 Flow Rate FiO2 01/15/17 12:30 Nasal Cannula 4.0 01/15/17 12:30 96.8 98 20 117/42 94 Nasal Cannula 4.0 01/15/17 12:15 97.9 90 24 146/60 97 Nasal Cannula 2.0 01/15/17 11:33 95 143/68 01/15/17 08:15 97.3 95 21 143/68 97 Room Air 01/15/17 07:58 Nasal Cannula 4.0 36 01/15/17 07:57 99 Nasal Cannula 4.0 01/15/17 07:55 96 16 Nasal Cannula 4.0 01/15/17 05:46 133/86 01/15/17 04:00 97.8 93 18 138/79 95 Nasal Cannula 5.0 01/15/17 00:00 97.7 97 18 133/86 95 Nasal Cannula 5.0 01/14/17 21:24 136/64 01/14/17 19:00 104 16 Nasal Cannula 2.0 28 01/14/17 19:00 Nasal Cannula 2.0 28 01/14/17 19:00 98 Nasal Cannula 2.0 28 01/14/17 19:00 98.4 104 20 136/64 95 Nasal Cannula 95.0 01/14/17 16:00 97.5 89 20 121/55 86 Nasal Cannula Intake and Output 01/14/17 01/15/17 19:00 07:00 Intake Total 855 ml 360 ml Output Total 200 ml Balance 655 ml 360 ml Intake Oral 800 ml 360 ml IV Total 55 ml Output Urine Total 200 ml # Voids 5 Laboratory Tests 01/15/17 06:10: White Blood Count 8.4, Red Blood Count 2.91L, Hemoglobin 8.9L, Hematocrit 27.1L , Mean Corpuscular Volume 93, Mean Corpuscular Hemoglobin 30.8, Mean Corpuscular Hemoglobin Concent 33.0, Red Cell Distribution Width 13.3, Platelet Count 205, Mean Platelet Volume 6.2L, Neutrophils (%) (Auto) 72.2, Lymphocytes ( %) (Auto) 10.8L, Monocytes (%) (Auto) 9.3, Eosinophils (%) (Auto) 7.1H, Basophils (%) (Auto) 0.7, Prothrombin Time 13.2H, Prothromb Time International Ratio 1.3H, Sodium Level 140, Potassium Level 3.7, Chloride Level 99, Carbon Dioxide Level 27, Anion Gap 14, Blood Urea Nitrogen 38H, Creatinine 4.3H, Estimat Glomerular Filtration Rate , Glucose Level 98, Uric Acid 6.2, Calcium Level 8.1L, Phosphorus Level 3.4, Total Bilirubin 0.5, Aspartate Amino Transf ( AST/SGOT) 17, Alanine Aminotransferase (ALT/SGPT) 10, Alkaline Phosphatase 72, Total Protein 5.1L, Albumin 2.6L, Globulin 2.5, Albumin/Globulin Ratio 1.0 Height (Feet): 5 Height (Inches): 5.00 Weight (Pounds): 140 General Appearance: no apparent distress Cardiovascular: normal rate, arrhythmia Respiratory/Chest: lungs clear, decreased breath sounds Abdomen: soft Objective other PE not changed CHECO SALAZAR Jan 15, 2017 14:44
[2017-01-15] MEDS: cefTRIAXone 1 GM in D5W 55 ML IVPB SCH (15:01)
[2017-01-15] MEDS ORDERED: Warfarin Sodium 5mg ORAL ONE (17:00)
--- NOTE | 2017-01-15 17:16 | Pulmonology Progress Note ---
Assessment/Plan Problems: (1) Interstitial lung disease (2) COPD (chronic obstructive pulmonary disease) (3) ESRD (end stage renal disease) on dialysis (4) Acute respiratory failure Assessment/Plan repeat cxr, labs in am improving respiratory treatment check sputum no sign of infection titrate fio2 to sat of 92% on ceftriaxone, all cultures are negative dc planning Subjective ROS Limited/Unobtainable: No Interval Events: comforable Allergies: Coded Allergies: No Known Allergies (Unverified , 12/16/14) Objective Last 24 Hour Vital Signs Date Time Temp Pulse Resp B/P Pulse Ox O2 Delivery O2 Flow Rate FiO2 01/15/17 15:53 Room Air 01/15/17 15:52 97.0 88 18 145/52 95 Room Air 01/15/17 14:00 117/42 01/15/17 12:30 Nasal Cannula 4.0 01/15/17 12:30 96.8 98 20 117/42 94 Nasal Cannula 4.0 01/15/17 12:15 97.9 90 24 146/60 97 Nasal Cannula 2.0 01/15/17 11:33 95 143/68 01/15/17 08:15 97.3 95 21 143/68 97 Room Air 01/15/17 07:58 Nasal Cannula 4.0 36 01/15/17 07:57 99 Nasal Cannula 4.0 01/15/17 07:55 96 16 Nasal Cannula 4.0 01/15/17 05:46 133/86 01/15/17 04:00 97.8 93 18 138/79 95 Nasal Cannula 5.0 01/15/17 00:00 97.7 97 18 133/86 95 Nasal Cannula 5.0 01/14/17 21:24 136/64 01/14/17 19:00 104 16 Nasal Cannula 2.0 28 01/14/17 19:00 Nasal Cannula 2.0 28 01/14/17 19:00 98 Nasal Cannula 2.0 28 01/14/17 19:00 98.4 104 20 136/64 95 Nasal Cannula 95.0 Intake and Output 01/14/17 01/15/17 19:00 07:00 Intake Total 855 ml 360 ml Output Total 200 ml Balance 655 ml 360 ml Intake Oral 800 ml 360 ml IV Total 55 ml Output Urine Total 200 ml # Voids 5 Objective General Appearance: WD/WN, no apparent distress, alert Lines, tubes and drains: peripheral HEENT: normocephalic, atraumatic, anicteric, mucous membranes moist Neck: non-tender, supple Respiratory/Chest: chest wall non-tender, normal breath sounds - with moderate air exchange , no respiratory distress, no accessory muscle use Cardiovascular/Chest: normal rate, regular rhythm, no JVD Abdomen: normal bowel sounds, non tender, soft Extremities: no calf tenderness, normal capillary refill Laboratory Tests 01/15/17 06:10: White Blood Count 8.4, Red Blood Count 2.91L, Hemoglobin 8.9L, Hematocrit 27.1L , Mean Corpuscular Volume 93, Mean Corpuscular Hemoglobin 30.8, Mean Corpuscular Hemoglobin Concent 33.0, Red Cell Distribution Width 13.3, Platelet Count 205, Mean Platelet Volume 6.2L, Neutrophils (%) (Auto) 72.2, Lymphocytes ( %) (Auto) 10.8L, Monocytes (%) (Auto) 9.3, Eosinophils (%) (Auto) 7.1H, Basophils (%) (Auto) 0.7, Prothrombin Time 13.2H, Prothromb Time International Ratio 1.3H, Sodium Level 140, Potassium Level 3.7, Chloride Level 99, Carbon Dioxide Level 27, Anion Gap 14, Blood Urea Nitrogen 38H, Creatinine 4.3H, Estimat Glomerular Filtration Rate , Glucose Level 98, Uric Acid 6.2, Calcium Level 8.1L, Phosphorus Level 3.4, Total Bilirubin 0.5, Aspartate Amino Transf ( AST/SGOT) 17, Alanine Aminotransferase (ALT/SGPT) 10, Alkaline Phosphatase 72, Total Protein 5.1L, Albumin 2.6L, Globulin 2.5, Albumin/Globulin Ratio 1.0 01/15/17 06:30: Hepatitis B Surface Antigen [Pending], Hepatitis B Surface Antibody, Quant [ Pending], Hepatitis C Antibody [Pending] Current Medications Medications (Trade) Dose Ordered Sig/Kris Route PRN Reason Start Time Stop Time Status Last Admin Dose Admin Acetaminophen (Tylenol) 650 mg Q4H PRN ORAL Mild Pain (Pain Scale 1-3) 01/14/17 18:30 02/13/17 18:29 Albuterol/ Ipratropium (DuoNeb 0.5-3(2.5)mg/3ml) 3 ml Q4H PRN HHN Shortness of Breath 01/14/17 19:30 01/19/17 19:29 Allopurinol (Zyloprim) 200 mg DAILY ORAL 01/15/17 09:00 02/14/17 08:59 01/15/17 11:34 Aspirin (ASA) 81 mg DAILY ORAL 01/15/17 09:00 02/14/17 08:59 01/15/17 11:34 Ceftriaxone Sodium/Dextrose (Rocephin/D5W) 55 ml @ 110 mls/hr Q24H IVPB 01/15/17 10:00 01/22/17 09:59 01/15/17 15:01 Clonidine HCl (Catapres) 0.1 mg Q4H PRN ORAL SBP>160 01/14/17 19:00 02/13/17 18:59 Epoetin Issa (Procrit (for ESRD on dialysis)) 10,000 units SUN-SUN-SUN SUBQ 01/15/17 21:00 02/14/17 20:59 Finasteride (Proscar) 5 mg DAILY ORAL 01/15/17 09:00 02/14/17 08:59 01/15/17 11:35 Hydralazine HCl (Apresoline) 50 mg Q8HR ORAL 01/14/17 22:00 02/13/17 21:59 01/15/17 05:46 Mirtazapine (Remeron) 15 mg BEDTIME ORAL 01/14/17 21:00 02/13/17 20:59 01/14/17 21:14 Morphine Sulfate (Morphine Sulfate) 2 mg Q4H PRN IM PAIN 4-10 01/14/17 19:00 01/21/17 18:59 Nifedipine (Procardia XL) 60 mg DAILY ORAL 01/15/17 09:00 02/14/17 08:59 01/15/17 11:33 Promethazine HCl/ Codeine (Phenergan with Codeine) 5 ml Q4H PRN ORAL For Cough 01/14/17 18:30 02/13/17 18:29 Tamsulosin HCl (Flomax) 0.4 mg TWICE A DAY ORAL 01/14/17 18:30 02/13/17 18:29 01/15/17 11:33 Trazodone HCl (Desyrel) 50 mg QHS ORAL 01/14/17 21:00 02/13/17 20:59 01/14/17 21:16 Warfarin Sodium (Coumadin per pharmacy) 1 ea DAILY PRN MISC Per rx protocol 01/15/17 09:00 02/14/17 08:59 BRITT CASEY Jan 15, 2017 17:16
[2017-01-15] MEDS ORDERED: Sterile Water Irrig 1000ml IRRIG ONE (18:47)
[2017-01-15] MEDS ORDERED: NS 275ml ONE (18:47)
[2017-01-15] MEDS ORDERED: Tubing IV Secondary IV ONE (18:47)
--- NOTE | 2017-01-15 19:50 | Cardiology Progress Note ---
Assessment/Plan Assessment/Plan diastolic failure systemic htn ckd advanced paf bradycardia likley sinus / avn disease pulmonary htn s/p cea s/p resection of ?kidney and partial y of liver and stomach (all per pt report) contineus to improve now off oxygen increase hydralazine on Procardia xl 60 mg may need to incerase to 90 needs dialysis as planned all trop neg echo with ef 50% per prelim report Subjective Cardiovascular: Denies: chest pain, lightheadedness, palpitations Respiratory: Denies: shortness of breath Gastrointestinal/Abdominal: Denies: abdominal pain Genitourinary: Denies: burning Objective Last 24 Hour Vital Signs Date Time Temp Pulse Resp B/P Pulse Ox O2 Delivery O2 Flow Rate FiO2 01/15/17 15:53 Room Air 01/15/17 15:52 97.0 88 18 145/52 95 Room Air 01/15/17 14:00 117/42 01/15/17 12:30 Nasal Cannula 4.0 01/15/17 12:30 96.8 98 20 117/42 94 Nasal Cannula 4.0 01/15/17 12:15 97.9 90 24 146/60 97 Nasal Cannula 2.0 01/15/17 11:33 95 143/68 01/15/17 08:15 97.3 95 21 143/68 97 Room Air 01/15/17 07:58 Nasal Cannula 4.0 36 01/15/17 07:57 99 Nasal Cannula 4.0 01/15/17 07:55 96 16 Nasal Cannula 4.0 01/15/17 05:46 133/86 01/15/17 04:00 97.8 93 18 138/79 95 Nasal Cannula 5.0 01/15/17 00:00 97.7 97 18 133/86 95 Nasal Cannula 5.0 01/14/17 21:24 136/64 General Appearance: no apparent distress, alert Neck: supple Cardiovascular: normal rate, regular rhythm Respiratory/Chest: lungs clear, normal breath sounds Abdomen: non tender, soft Extremities: no swelling Intake and Output 01/14/17 01/15/17 19:00 07:00 Intake Total 855 ml 360 ml Output Total 200 ml Balance 655 ml 360 ml Intake Oral 800 ml 360 ml IV Total 55 ml Output Urine Total 200 ml # Voids 5 Laboratory Tests Test 01/15/17 06:10 3/20/17 06:30 White Blood Count 8.4 K/UL (4.8-10.8) Red Blood Count 2.91 M/UL (4.70-6.10) L Hemoglobin 8.9 G/DL (14.2-18.0) L Hematocrit 27.1 % (42.0-52.0) L Mean Corpuscular Volume 93 FL (80-99) Mean Corpuscular Hemoglobin 30.8 PG (27.0-31.0) Mean Corpuscular Hemoglobin Concent 33.0 G/DL (32.0-36.0) Red Cell Distribution Width 13.3 % (11.6-14.8) Platelet Count 205 K/UL (150-450) Mean Platelet Volume 6.2 FL (6.5-10.1) L Neutrophils (%) (Auto) 72.2 % (45.0-75.0) Lymphocytes (%) (Auto) 10.8 % (20.0-45.0) L Monocytes (%) (Auto) 9.3 % (1.0-10.0) Eosinophils (%) (Auto) 7.1 % (0.0-3.0) H Basophils (%) (Auto) 0.7 % (0.0-2.0) Prothrombin Time 13.2 SEC (9.30-11.50) H Prothromb Time International Ratio 1.3 (0.9-1.1) H Sodium Level 140 mEQ/L (135-145) Potassium Level 3.7 mEQ/L (3.4-4.9) Chloride Level 99 mEQ/L (98-107) Carbon Dioxide Level 27 mEQ/L (20-30) Anion Gap 14 (5-15) Blood Urea Nitrogen 38 mg/dL (7-23) H Creatinine 4.3 mg/dL (0.7-1.2) H Estimat Glomerular Filtration Rate mL/min (>60) Glucose Level 98 mg/dL (74-106) Uric Acid 6.2 mg/dL (3.0-7.5) Calcium Level 8.1 mg/dL (8.6-10.2) L Phosphorus Level 3.4 mg/dL (2.5-4.8) Total Bilirubin 0.5 mg/dL (0.0-1.2) Aspartate Amino Transf (AST/SGOT) 17 U/L (5-40) Alanine Aminotransferase (ALT/SGPT) 10 U/L (3-41) Alkaline Phosphatase 72 U/L (40-129) Total Protein 5.1 g/dL (6.6-8.7) L Albumin 2.6 g/dL (3.5-5.2) L Globulin 2.5 g/dL Albumin/Globulin Ratio 1.0 (1.0-2.7) Hepatitis B Surface Antigen Pending Hepatitis B Surface Antibody, Quant Pending Hepatitis C Antibody Pending DARBY MARIE Jan 15, 2017 19:50
[2017-01-15] MEDS: TraZODone 50mg tab ORAL SCH (20:10)
[2017-01-15] MEDS ORDERED: Epogen (for ESRD on dialysis) SUBQ SCH ×2 (21:00)
[2017-01-16] VITALS: BP 125/67
[2017-01-16 04:00] VITALS: BP 143/67
[2017-01-16] MEDS: HydrALAZINE 50mg tab ORAL SCH (06:22)
[2017-01-16 06:55] LABS: INR 1.7 (0.9-1.1); PROTHROMBIN TIME 17.6 SEC (9.30-11.50)
[2017-01-16 07:08] LABS: BASOPHILS % (AUTO) 0.4 % (0.0-2.0); EOSINOPHILS % (AUTO) 2.9 % (0.0-3.0); LYMPHOCYTES % (AUTO) 9.5 % (20.0-45.0); MEAN CORPUSCULAR HEMOGLOBIN 31.5 PG (27.0-31.0); MEAN CORPUSCULAR HGB CONC 33.6 G/DL (32.0-36.0); MEAN CORPUSCULAR VOLUME 94 FL (80-99); MEAN PLATELET VOLUME 5.8 FL (6.5-10.1); MONOCYTES % (AUTO) 10.7 % (1.0-10.0); NEUTROPHILS % (AUTO) 76.6 % (45.0-75.0); PLATELET COUNT 205 K/UL (150-450); RED BLOOD COUNT 3.17 M/UL (4.70-6.10); RED CELL DISTRIBUTION WIDTH 13.3 % (11.6-14.8); WHITE BLOOD COUNT 9.8 K/UL (4.8-10.8)
[2017-01-16 07:29] LABS: ALANINE AMINOTRANSFERASE 13 U/L (3-41); ANION GAP 14 (5-15); ASPARTATE AMINO TRANSFERASE 24 U/L (5-40); CALCIUM 8.3 mg/dL (8.6-10.2); CARBON DIOXIDE 32 mEQ/L (20-30); CHLORIDE 93 mEQ/L (98-107); CREATININE 3.3 mg/dL (0.7-1.2); HEMOLYSIS 2; POTASSIUM 3.6 mEQ/L (3.4-4.9); SODIUM 139 mEQ/L (135-145); TOTAL PROTEIN 5.8 g/dL (6.6-8.7)
[2017-01-16 08:00] VITALS: BP_SYST 144; BP_DIAS 45; BP_DIAS 95
[2017-01-16] MEDS: Allopurinol 100mg Tab ORAL SCH (08:59)
[2017-01-16] MEDS: Aspirin Baby 81mg ORAL SCH (08:59)
[2017-01-16] MEDS: Tamsulosin 0.4mg cap ORAL SCH ×2 (09:01→17:46)
[2017-01-16] MEDS: cefTRIAXone 1 GM in D5W 55 ML IVPB SCH (10:23)
--- NOTE | 2017-01-16 10:47 | General Progress Note ---
Assessment/Plan Status: stable Assessment/Plan status: 1. Hypoxic respiratory failure, on presentation 2. Most likely volume overload secondary to worsening renal failure. 3. Hypertension. 4. Acute on chronic renal failure. 5. History of multi-infarct brain disease. 6. Hypertension. 7. Coronary artery disease. 8. History of cardiac arrhythmia 9. Anemia Plan; HD 01/15 CXY pending today transfused restart flomax and proscar DC stone continue Rocephin check CXY bipap to O2. med surg Dc planning when OP HD arranged Subjective ROS Limited/Unobtainable: No Constitutional: Reports: malaise Allergies: Coded Allergies: No Known Allergies (Unverified , 12/16/14) Objective Last 24 Hour Vital Signs Date Time Temp Pulse Resp B/P Pulse Ox O2 Delivery O2 Flow Rate FiO2 01/16/17 08:59 101 144/45 01/16/17 08:00 98.2 101 18 144/45 95 Room Air 01/16/17 07:52 95 Room Air 01/16/17 07:52 Room Air 21 01/16/17 07:50 62 16 Room Air 21 01/16/17 06:22 143/81 01/16/17 04:00 99.7 102 18 143/67 90 Room Air 01/16/17 00:00 100.6 104 18 125/67 92 Room Air 01/15/17 21:04 129/56 01/15/17 20:00 97.8 102 16 129/56 95 Room Air 01/15/17 19:10 98 Nasal Cannula 4.0 01/15/17 19:10 Nasal Cannula 4.0 36 01/15/17 19:00 101 16 Nasal Cannula 4.0 01/15/17 15:53 Room Air 01/15/17 15:52 97.0 88 18 145/52 95 Room Air 01/15/17 14:00 117/42 01/15/17 12:30 Nasal Cannula 4.0 01/15/17 12:30 96.8 98 20 117/42 94 Nasal Cannula 4.0 01/15/17 12:15 97.9 90 24 146/60 97 Nasal Cannula 2.0 01/15/17 11:33 95 143/68 Intake and Output 01/15/17 01/16/17 19:00 07:00 Intake Total 480 ml 480 ml Output Total 1200 ml Balance -720 ml 480 ml Intake Oral 480 ml 480 ml Hemodialysis UF 1200 ml # Voids 5 Current Medications Medications (Trade) Dose Ordered Sig/Kris Route PRN Reason Start Time Stop Time Status Last Admin Dose Admin Acetaminophen (Tylenol) 650 mg Q4H PRN ORAL Mild Pain (Pain Scale 1-3) 01/14/17 18:30 02/13/17 18:29 Albuterol/ Ipratropium (DuoNeb 0.5-3(2.5)mg/3ml) 3 ml Q4H PRN HHN Shortness of Breath 01/14/17 19:30 01/19/17 19:29 Allopurinol (Zyloprim) 200 mg DAILY ORAL 01/15/17 09:00 02/14/17 08:59 01/16/17 08:59 Aspirin (ASA) 81 mg DAILY ORAL 01/15/17 09:00 02/14/17 08:59 01/16/17 08:59 Ceftriaxone Sodium/Dextrose (Rocephin/D5W) 55 ml @ 110 mls/hr Q24H IVPB 01/15/17 10:00 01/22/17 09:59 01/16/17 10:23 Clonidine HCl (Catapres) 0.1 mg Q4H PRN ORAL SBP>160 01/14/17 19:00 02/13/17 18:59 Epoetin Issa (Procrit (for ESRD on dialysis)) 10,000 units SUN-SUN-SUN SUBQ 01/15/17 21:00 02/14/17 20:59 01/15/17 20:10 Finasteride (Proscar) 5 mg DAILY ORAL 01/15/17 09:00 02/14/17 08:59 01/16/17 08:59 Hydralazine HCl (Apresoline) 50 mg Q8HR ORAL 01/14/17 22:00 02/13/17 21:59 01/16/17 06:22 Mirtazapine (Remeron) 15 mg BEDTIME ORAL 01/14/17 21:00 02/13/17 20:59 01/15/17 20:10 Morphine Sulfate (Morphine Sulfate) 2 mg Q4H PRN IM PAIN 4-10 01/14/17 19:00 01/21/17 18:59 Nifedipine (Procardia XL) 60 mg DAILY ORAL 01/15/17 09:00 02/14/17 08:59 01/16/17 08:59 Promethazine HCl/ Codeine (Phenergan with Codeine) 5 ml Q4H PRN ORAL For Cough 01/14/17 18:30 02/13/17 18:29 Tamsulosin HCl (Flomax) 0.4 mg TWICE A DAY ORAL 01/14/17 18:30 02/13/17 18:29 01/16/17 09:01 Trazodone HCl (Desyrel) 50 mg QHS ORAL 01/14/17 21:00 02/13/17 20:59 01/15/17 20:10 Warfarin Sodium (Coumadin per pharmacy) 1 ea DAILY PRN MISC Per rx protocol 01/15/17 09:00 02/14/17 08:59 Warfarin Sodium (Coumadin) 4 mg COUMADIN ONCE PO 01/16/17 17:00 01/16/17 17:01 Laboratory Tests 01/16/17 05:50: White Blood Count 9.8, Red Blood Count 3.17L, Hemoglobin 10.0L, Hematocrit 29.6L , Mean Corpuscular Volume 94, Mean Corpuscular Hemoglobin 31.5H, Mean Corpuscular Hemoglobin Concent 33.6, Red Cell Distribution Width 13.3, Platelet Count 205, Mean Platelet Volume 5.8L, Neutrophils (%) (Auto) 76.6H, Lymphocytes (%) (Auto) 9.5L, Monocytes (%) (Auto) 10.7H, Eosinophils (%) (Auto) 2.9, Basophils (%) (Auto) 0.4, Prothrombin Time 17.6H, Prothromb Time International Ratio 1.7H, Sodium Level 139, Potassium Level 3.6, Chloride Level 93L, Carbon Dioxide Level 32H, Anion Gap 14, Blood Urea Nitrogen 27H, Creatinine 3.3H, Estimat Glomerular Filtration Rate , Glucose Level 110H, Calcium Level 8.3L, Total Bilirubin 0.9, Aspartate Amino Transf (AST/SGOT) 24, Alanine Aminotransferase (ALT/SGPT) 13, Alkaline Phosphatase 89, Pro-B-Type Natriuretic Peptide 8632H, Total Protein 5.8L, Albumin 3.0L, Globulin 2.8, Albumin/Globulin Ratio 1.0 Height (Feet): 5 Height (Inches): 5.00 Weight (Pounds): 140 General Appearance: no apparent distress Cardiovascular: normal rate Respiratory/Chest: decreased breath sounds Abdomen: soft Objective other PE not changed CHECO SALAZAR Jan 16, 2017 10:47
[2017-01-16] MEDS ORDERED: HydrALAZINE 25mg tab ORAL PRN (11:00)
[2017-01-16] MEDS ORDERED: Carvedilol 12.5mg tab ORAL ONE (11:30)
--- NOTE | 2017-01-16 11:44 | Cardiology Report ---
APPROVED REPORT EKG Measurement Heart [id number] Sinus tachycardia with occasional, and consecutive premature ventricular complexes Nonspecific intraventricular conduction delay Nonspecific ST and T wave abnormality Abnormal ECG
[2017-01-16 12:00] VITALS: BP 128/51
--- NOTE | 2017-01-16 13:38 | Cardiology Progress Note ---
Assessment/Plan Assessment/Plan diastolic failure systemic htn ckd advanced paf bradycardia likley sinus / avn disease pulmonary htn s/p cea s/p resection of ?kidney and partial y of liver and stomach (all per pt report) contineus to improve now off oxygen increase hydralazine on Procardia xl 60 mg may need to incerase to 90 needs dialysis as planned all trop neg echo with ef 50% per prelim report ok to dc home form my [facility] Subjective Cardiovascular: Reports: lightheadedness - at tjimes , Denies: chest pain, palpitations Gastrointestinal/Abdominal: Denies: abdominal pain Genitourinary: Denies: no symptoms Objective Last 24 Hour Vital Signs Date Time Temp Pulse Resp B/P Pulse Ox O2 Delivery O2 Flow Rate FiO2 01/16/17 12:35 101 144/45 01/16/17 12:00 98.2 90 21 128/51 93 Room Air 01/16/17 08:59 101 144/45 01/16/17 08:00 98.2 101 18 144/95 95 Room Air 01/16/17 08:00 98.2 101 18 144/45 95 Room Air 01/16/17 07:52 95 Room Air 21 01/16/17 07:52 Room Air 21 01/16/17 07:50 62 16 Room Air 21 01/16/17 06:22 143/81 01/16/17 04:00 99.7 102 18 143/67 90 Room Air 01/16/17 00:00 100.6 104 18 125/67 92 Room Air 01/15/17 21:04 129/56 01/15/17 20:00 97.8 102 16 129/56 95 Room Air 01/15/17 19:10 98 Nasal Cannula 4.0 01/15/17 19:10 Nasal Cannula 4.0 36 01/15/17 19:00 101 16 Nasal Cannula 4.0 01/15/17 15:53 Room Air 01/15/17 15:52 97.0 88 18 145/52 95 Room Air 01/15/17 14:00 117/42 General Appearance: no apparent distress, alert Neck: supple Cardiovascular: normal rate, regular rhythm Respiratory/Chest: lungs clear, normal breath sounds Abdomen: normal bowel sounds, non tender, soft Extremities: no swelling Intake and Output 01/15/17 01/16/17 19:00 07:00 Intake Total 480 ml 480 ml Output Total 1200 ml Balance -720 ml 480 ml Intake Oral 480 ml 480 ml Hemodialysis UF 1200 ml # Voids 5 Laboratory Tests Test 01/16/17 05:50 White Blood Count 9.8 K/UL (4.8-10.8) Red Blood Count 3.17 M/UL (4.70-6.10) L Hemoglobin 10.0 G/DL (14.2-18.0) L Hematocrit 29.6 % (42.0-52.0) L Mean Corpuscular Volume 94 FL (80-99) Mean Corpuscular Hemoglobin 31.5 PG (27.0-31.0) H Mean Corpuscular Hemoglobin Concent 33.6 G/DL (32.0-36.0) Red Cell Distribution Width 13.3 % (11.6-14.8) Platelet Count 205 K/UL (150-450) Mean Platelet Volume 5.8 FL (6.5-10.1) L Neutrophils (%) (Auto) 76.6 % (45.0-75.0) H Lymphocytes (%) (Auto) 9.5 % (20.0-45.0) L Monocytes (%) (Auto) 10.7 % (1.0-10.0) H Eosinophils (%) (Auto) 2.9 % (0.0-3.0) Basophils (%) (Auto) 0.4 % (0.0-2.0) Prothrombin Time 17.6 SEC (9.30-11.50) H Prothromb Time International Ratio 1.7 (0.9-1.1) H Sodium Level 139 mEQ/L (135-145) Potassium Level 3.6 mEQ/L (3.4-4.9) Chloride Level 93 mEQ/L (98-107) L Carbon Dioxide Level 32 mEQ/L (20-30) H Anion Gap 14 (5-15) Blood Urea Nitrogen 27 mg/dL (7-23) H Creatinine 3.3 mg/dL (0.7-1.2) H Estimat Glomerular Filtration Rate mL/min (>60) Glucose Level 110 mg/dL (74-106) H Calcium Level 8.3 mg/dL (8.6-10.2) L Total Bilirubin 0.9 mg/dL (0.0-1.2) Aspartate Amino Transf (AST/SGOT) 24 U/L (5-40) Alanine Aminotransferase (ALT/SGPT) 13 U/L (3-41) Alkaline Phosphatase 89 U/L (40-129) Pro-B-Type Natriuretic Peptide 8632 pg/mL (0-450) H Total Protein 5.8 g/dL (6.6-8.7) L Albumin 3.0 g/dL (3.5-5.2) L Globulin 2.8 g/dL Albumin/Globulin Ratio 1.0 (1.0-2.7) DARBY MARIE Jan 16, 2017 13:38
[2017-01-16] MEDS: HydrALAZINE 25mg tab ORAL SCH ×2 (14:52→21:56)
[2017-01-16 16:00] VITALS: BP 106/51
--- NOTE | 2017-01-16 16:55 | Pulmonology Progress Note ---
Assessment/Plan Problems: (1) Interstitial lung disease (2) COPD (chronic obstructive pulmonary disease) (3) ESRD (end stage renal disease) on dialysis (4) Acute respiratory failure Assessment/Plan repeat cxr today shows much improvement On HD, dialyzed yesterday respiratory treatment check sputum no sign of infection titrate fio2 to sat of 92% on ceftriaxone, all cultures are negative dc planning Subjective ROS Limited/Unobtainable: No Interval Events: comfortable Allergies: Coded Allergies: No Known Allergies (Unverified , 12/16/14) Objective Last 24 Hour Vital Signs Date Time Temp Pulse Resp B/P Pulse Ox O2 Delivery O2 Flow Rate FiO2 01/16/17 14:52 144/45 01/16/17 12:35 101 144/45 01/16/17 12:00 98.2 90 21 128/51 93 Room Air 01/16/17 08:59 101 144/45 01/16/17 08:00 98.2 101 18 144/95 95 Room Air 01/16/17 08:00 98.2 101 18 144/45 95 Room Air 01/16/17 07:52 95 Room Air 21 01/16/17 07:52 Room Air 21 01/16/17 07:50 62 16 Room Air 21 01/16/17 06:22 143/81 01/16/17 04:00 99.7 102 18 143/67 90 Room Air 01/16/17 00:00 100.6 104 18 125/67 92 Room Air 01/15/17 21:04 129/56 01/15/17 20:00 97.8 102 16 129/56 95 Room Air 01/15/17 19:10 98 Nasal Cannula 4.0 01/15/17 19:10 Nasal Cannula 4.0 36 01/15/17 19:00 101 16 Nasal Cannula 4.0 Intake and Output 01/15/17 01/16/17 19:00 07:00 Intake Total 480 ml 480 ml Output Total 1200 ml Balance -720 ml 480 ml Intake Oral 480 ml 480 ml Hemodialysis UF 1200 ml # Voids 5 Objective General Appearance: WD/WN, no apparent distress, alert Lines, tubes and drains: peripheral HEENT: normocephalic, atraumatic, anicteric, mucous membranes moist Neck: non-tender, supple Respiratory/Chest: chest wall non-tender, normal breath sounds - with moderate air exchange , no respiratory distress, no accessory muscle use Cardiovascular/Chest: normal rate, regular rhythm, no JVD Abdomen: normal bowel sounds, non tender, soft Extremities: no calf tenderness, normal capillary refill Laboratory Tests 01/16/17 05:50: White Blood Count 9.8, Red Blood Count 3.17L, Hemoglobin 10.0L, Hematocrit 29.6L , Mean Corpuscular Volume 94, Mean Corpuscular Hemoglobin 31.5H, Mean Corpuscular Hemoglobin Concent 33.6, Red Cell Distribution Width 13.3, Platelet Count 205, Mean Platelet Volume 5.8L, Neutrophils (%) (Auto) 76.6H, Lymphocytes (%) (Auto) 9.5L, Monocytes (%) (Auto) 10.7H, Eosinophils (%) (Auto) 2.9, Basophils (%) (Auto) 0.4, Prothrombin Time 17.6H, Prothromb Time International Ratio 1.7H, Sodium Level 139, Potassium Level 3.6, Chloride Level 93L, Carbon Dioxide Level 32H, Anion Gap 14, Blood Urea Nitrogen 27H, Creatinine 3.3H, Estimat Glomerular Filtration Rate , Glucose Level 110H, Calcium Level 8.3L, Total Bilirubin 0.9, Aspartate Amino Transf (AST/SGOT) 24, Alanine Aminotransferase (ALT/SGPT) 13, Alkaline Phosphatase 89, Pro-B-Type Natriuretic Peptide 8632H, Total Protein 5.8L, Albumin 3.0L, Globulin 2.8, Albumin/Globulin Ratio 1.0 Current Medications Medications (Trade) Dose Ordered Sig/Kris Route PRN Reason Start Time Stop Time Status Last Admin Dose Admin Acetaminophen (Tylenol) 650 mg Q4H PRN ORAL Mild Pain (Pain Scale 1-3) 01/14/17 18:30 02/13/17 18:29 Albuterol/ Ipratropium (DuoNeb 0.5-3(2.5)mg/3ml) 3 ml Q4H PRN HHN Shortness of Breath 01/14/17 19:30 01/19/17 19:29 Allopurinol (Zyloprim) 100 mg DAILY ORAL 01/17/17 09:00 02/16/17 08:59 Aspirin (ASA) 81 mg DAILY ORAL 01/15/17 09:00 02/14/17 08:59 01/16/17 08:59 Carvedilol (Coreg) 12.5 mg EVERY 12 HOURS ORAL 01/16/17 21:00 02/15/17 20:59 Ceftriaxone Sodium/Dextrose (Rocephin/D5W) 55 ml @ 110 mls/hr Q24H IVPB 01/15/17 10:00 01/22/17 09:59 01/16/17 10:23 Epoetin Issa (Procrit (for ESRD on dialysis)) 10,000 units SUN-SUN-SUN SUBQ 01/15/17 21:00 02/14/17 20:59 01/15/17 20:10 Finasteride (Proscar) 5 mg DAILY ORAL 01/15/17 09:00 02/14/17 08:59 01/16/17 08:59 Hydralazine HCl (Apresoline) 25 mg Q4H PRN ORAL BP over 160 syst 01/16/17 11:00 02/15/17 10:59 Hydralazine HCl (Apresoline) 25 mg Q8HR ORAL 01/16/17 14:00 02/15/17 13:59 01/16/17 14:52 Mirtazapine (Remeron) 15 mg BEDTIME ORAL 01/14/17 21:00 02/13/17 20:59 01/15/17 20:10 Nifedipine (Procardia XL) 60 mg DAILY ORAL 01/15/17 09:00 02/14/17 08:59 01/16/17 08:59 Promethazine HCl/ Codeine (Phenergan with Codeine) 5 ml Q4H PRN ORAL For Cough 01/14/17 18:30 02/13/17 18:29 Tamsulosin HCl (Flomax) 0.4 mg TWICE A DAY ORAL 01/14/17 18:30 02/13/17 18:29 01/16/17 09:01 Trazodone HCl (Desyrel) 50 mg QHS ORAL 01/14/17 21:00 02/13/17 20:59 01/15/17 20:10 Warfarin Sodium (Coumadin per pharmacy) 1 ea DAILY PRN MISC Per rx protocol 01/15/17 09:00 02/14/17 08:59 Warfarin Sodium (Coumadin) 4 mg COUMADIN ONCE PO 01/16/17 17:00 01/16/17 17:01 BRITT CASEY 21, 2017 16:55
[2017-01-16] MEDS ORDERED: Warfarin Sodium 4mg PO ONE (17:00)
[2017-01-16] MEDS ORDERED: NS 275ml ONE (17:37)
[2017-01-16] MEDS ORDERED: Tubing IV Secondary IV ONE (17:37)
[2017-01-16] MEDS: Docusate 100mg tablet ORAL SCH (17:46)
[2017-01-16 20:00] VITALS: BP 123/64
[2017-01-16] MEDS ORDERED: Bisacodyl EC 5mg tab ORAL ONE (21:00)
[2017-01-16] MEDS: TraZODone 50mg tab ORAL SCH (21:55)
[2017-01-16] MEDS: Carvedilol 12.5mg tab ORAL SCH (21:56)
[2017-01-17] VITALS: BP 112/51
[2017-01-17 04:00] VITALS: BP 125/56
[2017-01-17] MEDS: HydrALAZINE 25mg tab ORAL SCH ×2 (05:52→13:06)
[2017-01-17 07:21] LABS: INR 1.9 (0.9-1.1); PROTHROMBIN TIME 20.2 SEC (9.30-11.50)
[2017-01-17 08:14] VITALS: BP 95/48
--- NOTE | 2017-01-17 08:27 | Diagnostic Imaging Report ---
Indication: DYSPNEA Technique: One view of the chest Comparison: 01/13/2017 Findings: Interim marked improvement of bilateral interstitial and alveolar edema. There is some residual interstitial changes diffusely and some interstitial and alveolar parenchymal residual disease at the right lung base. Normal bilateral pleural effusions persists, although appear improved on the right. Cardiomegaly persists Impression: Over 3 days, considerably improved although persistent changes of congestive heart failure, as described Decreased right-sided pleural effusion, probably stable small left-sided pleural effusion
[2017-01-17] MEDS: Carvedilol 12.5mg tab ORAL SCH (08:39)
[2017-01-17] MEDS: Aspirin Baby 81mg ORAL SCH (08:39)
[2017-01-17] MEDS: Docusate 100mg tablet ORAL SCH ×2 (08:47→08:49)
[2017-01-17] MEDS: Tamsulosin 0.4mg cap ORAL SCH (08:47)
[2017-01-17] MEDS ORDERED: Allopurinol 100mg Tab ORAL SCH (09:00)
[2017-01-17 09:02] VITALS: BP 123/64
[2017-01-17] MEDS: cefTRIAXone 1 GM in D5W 55 ML IVPB SCH (09:38)
--- NOTE | 2017-01-17 09:43 | General Progress Note ---
Assessment/Plan Status: stable Assessment/Plan status: 1. Hypoxic respiratory failure, on presentation- also interstitial lung disease 2. Most likely volume overload secondary to worsening renal failure. 3. Hypertension. 4. Acute on chronic renal failure. 5. History of multi-infarct brain disease. 6. Hypertension. 7. Coronary artery disease. 8. History of cardiac arrhythmia 9. Anemia Plan; HD 01/17 then DC home CXR improved CHF transfused restart flomax and proscar fu at OP HD twice a week Subjective ROS Limited/Unobtainable: No Allergies: Coded Allergies: No Known Allergies (Unverified , 12/16/14) Objective Last 24 Hour Vital Signs Date Time Temp Pulse Resp B/P Pulse Ox O2 Delivery O2 Flow Rate FiO2 01/17/17 09:02 80 123/64 01/17/17 08:39 82 95/48 01/17/17 08:39 82 95/48 01/17/17 08:14 98.3 82 23 95/48 97 Nasal Cannula 2.0 01/17/17 05:52 129/69 01/17/17 04:00 96.6 70 18 125/56 100 Room Air 01/17/17 00:00 97.5 72 18 112/51 97 Room Air 01/16/17 21:56 123/64 01/16/17 21:56 76 123/64 01/16/17 20:00 98.2 76 16 123/64 96 Room Air 01/16/17 19:31 Nasal Cannula 3.0 01/16/17 19:30 95 Nasal Cannula 3.0 01/16/17 19:26 52 16 Nasal Cannula 3.0 01/16/17 16:00 99.1 72 17 106/51 94 Room Air 01/16/17 14:52 144/45 01/16/17 12:35 101 144/45 01/16/17 12:00 98.2 90 21 128/51 93 Room Air Intake and Output 01/16/17 01/17/17 19:00 07:00 Intake Total 535 ml 360 ml Balance 535 ml 360 ml Intake Oral 480 ml 360 ml IV Total 55 ml # Voids 3 3 Current Medications Medications (Trade) Dose Ordered Sig/Kris Route PRN Reason Start Time Stop Time Status Last Admin Dose Admin Acetaminophen (Tylenol) 650 mg Q4H PRN ORAL Mild Pain (Pain Scale 1-3) 01/14/17 18:30 4/18/17 18:29 Albuterol/ Ipratropium (DuoNeb 0.5-3(2.5)mg/3ml) 3 ml Q4H PRN HHN Shortness of Breath 01/14/17 19:30 01/19/17 19:29 Allopurinol (Zyloprim) 100 mg DAILY ORAL 01/17/17 09:00 02/16/17 08:59 01/17/17 08:47 Aspirin (ASA) 81 mg DAILY ORAL 01/15/17 09:00 02/14/17 08:59 01/16/17 08:59 Carvedilol (Coreg) 12.5 mg EVERY 12 HOURS ORAL 01/16/17 21:00 02/15/17 20:59 01/16/17 21:56 Ceftriaxone Sodium/Dextrose (Rocephin/D5W) 55 ml @ 110 mls/hr Q24H IVPB 01/15/17 10:00 01/22/17 09:59 01/17/17 09:38 Docusate Sodium (Colace) 100 mg TID ORAL 01/16/17 18:00 02/15/17 17:59 01/17/17 08:47 Epoetin Issa (Procrit (for ESRD on dialysis)) 10,000 units SUN-SUN-SUN SUBQ 01/15/17 21:00 02/14/17 20:59 01/15/17 20:10 Finasteride (Proscar) 5 mg DAILY ORAL 01/15/17 09:00 02/14/17 08:59 01/17/17 08:48 Hydralazine HCl (Apresoline) 25 mg Q4H PRN ORAL BP over 160 syst 01/16/17 11:00 02/15/17 10:59 Hydralazine HCl (Apresoline) 25 mg Q8HR ORAL 01/16/17 14:00 02/15/17 13:59 01/17/17 05:52 Mirtazapine (Remeron) 15 mg BEDTIME ORAL 01/14/17 21:00 02/13/17 20:59 01/16/17 21:55 Nifedipine (Procardia XL) 60 mg DAILY ORAL 01/15/17 09:00 02/14/17 08:59 01/16/17 08:59 Promethazine HCl/ Codeine (Phenergan with Codeine) 5 ml Q4H PRN ORAL For Cough 01/14/17 18:30 02/13/17 18:29 Tamsulosin HCl (Flomax) 0.4 mg TWICE A DAY ORAL 01/14/17 18:30 02/13/17 18:29 01/17/17 08:47 Trazodone HCl (Desyrel) 50 mg QHS ORAL 01/14/17 21:00 02/13/17 20:59 01/16/17 21:55 Warfarin Sodium (Coumadin per pharmacy) 1 ea DAILY PRN MISC Per rx protocol 01/15/17 09:00 02/14/17 08:59 Laboratory Tests 01/17/17 05:20: Prothrombin Time 20.2H, Prothromb Time International Ratio 1.9H Height (Feet): 5 Height (Inches): 5.00 Weight (Pounds): 140 General Appearance: no apparent distress Objective other PE not changed CHECO SALAZAR 22, 2017 09:43
[2017-01-17] MEDS ORDERED: HYDRALAZINE HCL25 M1 ORAL (09:47)
[2017-01-17] MEDS ORDERED: COUMADIN4 MG PO (09:47)
[2017-01-17] MEDS ORDERED: COREG12.5 MG ORAL (09:47)
[2017-01-17] MEDS ORDERED: PROCARDIA XL30 MG ORAL (09:47)
--- NOTE | 2017-01-17 09:50 | Discharge Instructions ---
Discharge Instructions Discharge Instructions Follow up with: myself in 3-5 days - call office for appointment Resume Normal Activity?: Yes Special Instructions to US Renal BH dialysis twice a week. For Congestive Heart Failure Reminder Report to your physician any weight gain of 5 pounds or more in one week. CHECO SALAZAR Jan 17, 2017 09:50
[2017-01-17 12:06] VITALS: BP 147/62
[2017-01-17] MEDS ORDERED: Tubing IV Secondary IV ONE (15:18)
[2017-01-17 16:00] VITALS: BP 123/56
[2017-01-17] MEDS ORDERED: Warfarin Sodium 4mg PO ONE (17:00)
--- NOTE | 2017-01-17 22:30 | Pulmonology Progress Note ---
Assessment/Plan Problems: (1) Interstitial lung disease (2) COPD (chronic obstructive pulmonary disease) (3) ESRD (end stage renal disease) on dialysis (4) Acute respiratory failure Assessment/Plan repeat cxr today shows much improvement On HD, dialyzed yesterday respiratory treatment check sputum no sign of infection titrate fio2 to sat of 92% on ceftriaxone, all cultures are negative dc planning Subjective Allergies: Coded Allergies: No Known Allergies (Unverified , 12/16/14) Objective Last 24 Hour Vital Signs Date Time Temp Pulse Resp B/P Pulse Ox O2 Delivery O2 Flow Rate FiO2 01/17/17 16:00 97.1 80 22 123/56 98 Room Air 01/17/17 13:06 147/62 01/17/17 12:06 97.5 72 21 147/62 99 Room Air 01/17/17 10:45 Room Air 01/17/17 10:04 71 16 Nasal Cannula 3.0 01/17/17 10:04 100 Nasal Cannula 3.0 01/17/17 10:04 Nasal Cannula 3.0 01/17/17 09:02 80 123/64 01/17/17 08:39 82 95/48 01/17/17 08:39 82 95/48 01/17/17 08:14 98.3 82 23 95/48 97 Nasal Cannula 2.0 01/17/17 05:52 129/69 01/17/17 04:00 96.6 70 18 125/56 100 Room Air 01/17/17 00:00 97.5 72 18 112/51 97 Room Air Intake and Output 01/16/17 01/17/17 19:00 07:00 Intake Total 535 ml 360 ml Balance 535 ml 360 ml Intake Oral 480 ml 360 ml IV Total 55 ml # Voids 3 3 Objective General Appearance: WD/WN, no apparent distress, alert Lines, tubes and drains: peripheral HEENT: normocephalic, atraumatic, anicteric, mucous membranes moist Neck: non-tender, supple Respiratory/Chest: chest wall non-tender, normal breath sounds - with moderate air exchange , no respiratory distress, no accessory muscle use Cardiovascular/Chest: normal rate, regular rhythm, no JVD Abdomen: normal bowel sounds, non tender, soft Extremities: no calf tenderness, normal capillary refill Laboratory Tests 01/17/17 05:20: Prothrombin Time 20.2H, Prothromb Time International Ratio 1.9H BRITT CASEY Jan 17, 2017 22:30
--- NOTE | 2017-01-19 13:52 | Discharge Summary ---
Discharge Summary Hospital Course Date of Admission Jan 11, 2017 at 12:17 Date of Discharge Jan 17, 2017 at 16:46 Admitting Diagnosis SOB , CHF HPI Ashwin Garza is a 81 year old male who was admitted on Jan 11, 2017 at 12:17 for Shortness Of Breath, Congestive Heart Failure Hospital Course [id number] Discharge Discharge Disposition Patient was discharged to Home (01) Discharge Diagnoses: Discharge Instructions Discharge Instructions Follow up with: myself in 3-5 days - call office for appointment Stephy Houston NP Jan 19, 2017 13:52
--- NOTE | 2017-01-20 00:18 | Discharge Summary 2 SIG ---
DATE OF ADMISSION: 01/11/2017 DATE OF DISCHARGE: 01/17/2017 CONSULTANTS: 1. Darius Watson M.D. 2. Marko Thakkar M.D. BRIEF HOSPITAL COURSE: The patient is an 81-year-old male, who apparently developed shortness of breath and chest pain, came into the emergency room. On evaluation showed worsening renal failure and pulmonary symptoms compatible with volume overload. He has a history of multi-infarct brain disease, hypertension, pulmonary hypertension, coronary artery disease, cardiac arrhythmia with atrial fibrillation and low ventricular rate and anemia. He was initially placed on BiPAP. Dr. Watson was consulted. The patient was admitted to ICU. Initial chest x-ray showed bilateral pleural effusion. He was given breathing treatment and underwent hemodialysis. He was eventually started on IV antibiotics. His breathing improved and was able to be weaned off BiPAP and transferred to telemetry. He was followed by Dr. Thakkar. The patient has paroxysmal atrial fibrillation and was given Lasix and nicardipine twice a day. Antihypertensives were adjusted. Echocardiogram was done showed ejection fraction of 50%. Troponins has been negative. He had an episode of anemia and received one unit of packed RBC blood transfusion. The patient's Morin catheter was discontinued and was started on Flomax and Proscar. The patient was eventually discharged home with arranged outpatient dialysis. FINAL DIAGNOSES: 1. Acute hypoxemic respiratory failure. 2. Volume overload secondary to worsening renal failure. 3. Hypertension. 4. Acute on chronic renal failure requiring hemodialysis. 5. History of multi-infarct brain disease. 6. Hypertension. 7. Coronary artery disease. 8. Paroxysmal atrial fibrillation. 9. Acute anemia requiring transfusion. 10. Anemia of chronic disease. Ady Gómez M.D. I have been assigned to dictate discharge summary on this account and I was not involved in the patient's management. Stephy Houston N.P. DR: ESME JOB#: [id number] CC: ISABELLA
[2017-01-22 10:07] LABS: HEPATITIS C VIRUS AB/CEDARS 0.14 S/CO (<0.80)
[2017-01-31 13:05] LABS: HEPATITIS BE ANTIGEN/CEDARS NONREACTIVE (NONREACTIVE)
== END 2017-01-17 16:46 | disposition home or self-care (01) | DRG 189 ==
LOC: EDBEDREQ 11:22 → EMR 12:12 → 2W 12:17 → EDBEDREQ 12:25 → EDBEDREQSVC 13:38 → EDBEDREQ 13:39 → 2E 01-13 16:11 → 2W 01-14 07:33 → 4E 01-14 16:04
PROC: 5A1D60Z (ICD-10-PCS; principal; 2017-01-11)
DX: J96.01 Acute respiratory failure with hypoxia (principal); I13.2 Hypertensive heart and chronic kidney disease with heart failure and with stage 5 chronic kidney disease, or end stage renal disease; N17.9 Acute kidney failure, unspecified; D68.9 Coagulation defect, unspecified; N18.6 End stage renal disease; E87.70 Fluid overload, unspecified; I48.0 Paroxysmal atrial fibrillation; R00.1 Bradycardia, unspecified; I50.30 Unspecified diastolic (congestive) heart failure; I25.10 Atherosclerotic heart disease of native coronary artery without angina pectoris; Z99.2 Dependence on renal dialysis; J44.9 Chronic obstructive pulmonary disease, unspecified; Z79.01 Long term (current) use of anticoagulants; D63.8 Anemia in other chronic diseases classified elsewhere
CPT/HCPCS: 36415; 36600; 71010; 80053; 80061; 81001; 82550; 82553; 82607; 82728; 82803; 83540; 83550; 83735; 83880; 84100; 84443; 84484; 84550; 85007; 85025; 85610; 86140; 86705; 86706; 86707; 86709; 86803; 86850; 86900; 86901; 86920; 87040; 87081; 87340; 87350; 93005; 93306; 94640; 94660; 94664; 94760; C9399; J8499

== ENCOUNTER 2017-01-19 08:58 | Emergency (ER) | payer MEDICARE, MEDICAID ==
[~2017-01-19] VITALS: Ht 162.6 cm; Wt 61.2 kg
[~2017-01-19 08:58] MED LIST changes: +COUMADIN4 MG PO; +HYDRALAZINE HCL25 M1 ORAL
[2017-01-19] MEDS ORDERED: Morphine Sulfate 2mg/ml Inj IVP ONE (09:15)
[2017-01-19] MEDS ORDERED: TdaP Vaccine 0.5ml Syr IM ONE (09:15)
--- NOTE | 2017-01-19 09:43 | Emergency Room Report ---
History of Present Illness General Chief Complaint: Skin Rash/Abscess Source: Patient, Medical Record Present Illness HPI The patient was discharged from the hospital on Sunday. Since that time has had right wrist and hand pain and swelling. He denies any fever or chills. Redness and also some bruising on the hand. Denies any trauma. The patient is a dialysis patient he gets dialysis Sunday and Sunday. He denies any chest pain, shortness of breath, palpitations, nausea, vomiting, diarrhea. He does make urine occasionally. He is uncertain when his last tetanus shot was. The patient claimed that he took antibiotics however his states that he does not take any antibiotics at this time. The patient complains of 8/10 pain at this time and took Tylenol this morning. Has not been elevating the hand. He has a shunt in his left upper arm. He is on coumadin for atrial fibrillation. Allergies: Coded Allergies: No Known Allergies (Unverified , 12/16/14) Patient History Past Medical History: see triage record Past Surgical History: other - Fistula left arm Social History: Reports: smoking - prior Social History Narrative from home Reviewed Nursing Documentation: PMH: Agreed, PSxH: Agreed Nursing Documentation-PMH Past Medical History: No History, Except For Hx Cardiac Problems: Yes Hx Hypertension: Yes Hx COPD: Yes Hx Cancer: No Hx Gastrointestinal Problems: No Hx Dialysis: Yes - , , Sun Hx Neurological Problems: No Hx Cerebrovascular Accident: Yes Hx Dementia: Yes Review of Systems All Other Systems: negative except mentioned in HPI Physical Exam Vital Signs Date Time Temp Pulse Resp B/P Pulse Ox O2 Delivery O2 Flow Rate FiO2 01/19/17 09:04 97.5 74 16 134/61 98 Room Air Sp02 EP Interpretation: reviewed, normal General Appearance: well appearing, no apparent distress, GCS 15, Chronically Ill Head: normocephalic Eyes: bilateral eye PERRL, bilateral eye normal inspection ENT: moist mucus membranes - poor dentition Neck: supple Respiratory: chest non-tender, lungs clear, normal breath sounds Cardiovascular #1: regular rate, rhythm Cardiovascular #2: 2+ radial (R), 2+ radial (L) - thrill upper arm Gastrointestinal: normal inspection, normal bowel sounds, non tender, no mass, non-distended Musculoskeletal: back normal, gait/station normal, normal range of motion, inflammation, swelling - Right wrist and dorsum of hand, tender Neurologic: alert, oriented x3, motor strength/tone normal, DTRs symmetric, sensory intact, cerebellar normal, normal gait, speech normal Psychiatric: mood/affect normal Skin: warm/dry, other - Erythema and swelling of the right wrist and dorsum of hand Medical Decision Making Diagnostic Impression: Primary Impression: Cellulitis of right hand Additional Impression: ESRD (end stage renal disease) on dialysis ER Course The patient presents with right wrist and hand swelling. Differential includes gout, cellulitis and possible osteomyelitis. The patient is at increased risk for infection because of dialysis. Denies any other somatic complaints at the moment. Evaluation review of labs, x-ray including blood cultures and lactate and sedimentation rate. The patient on Anaprox his time in will consider outpatient treatment after discussion with his private doctor. In addition to that the patient was given tetanus and analgesia. Labs with ESRD, and normal WBC. High ESR. Elevated INR (on coumadin). Initially I felt patient needed inpatient treatment. Request admission and then discussed with Dr. Gómez. Patient examined by Dr. Gómez. He believes this can be treated with IV vancomycin and outpatient observation. Sling applied by tech, position excellent. Neurovasc checked by me and intact. Patient improved with analgesia. Patient stable for outpatient observation and treatment. Laboratory Tests Test 01/19/17 09:45 01/19/17 10:45 White Blood Count 7.9 K/UL (4.8-10.8) Red Blood Count 3.05 M/UL (4.70-6.10) L Hemoglobin 9.4 G/DL (14.2-18.0) L Hematocrit 28.7 % (42.0-52.0) L Mean Corpuscular Volume 94 FL (80-99) Mean Corpuscular Hemoglobin 30.8 PG (27.0-31.0) Mean Corpuscular Hemoglobin Concent 32.7 G/DL (32.0-36.0) Red Cell Distribution Width 13.3 % (11.6-14.8) Platelet Count 255 K/UL (150-450) Mean Platelet Volume 5.6 FL (6.5-10.1) L Neutrophils (%) (Auto) 66.5 % (45.0-75.0) Lymphocytes (%) (Auto) 14.1 % (20.0-45.0) L Monocytes (%) (Auto) 14.1 % (1.0-10.0) H Eosinophils (%) (Auto) 4.7 % (0.0-3.0) H Basophils (%) (Auto) 0.5 % (0.0-2.0) Erythrocyte Sedimentation Rate 114 MM/HR (0-30) H Prothrombin Time 26.2 SEC (9.30-11.50) H Prothrombin Time INR 2.5 (0.9-1.1) H PTT 51 SEC (23-33) H Sodium Level 137 mEQ/L (135-145) Potassium Level 3.7 mEQ/L (3.4-4.9) Chloride Level 92 mEQ/L (98-107) L Carbon Dioxide Level 29 mEQ/L (20-30) Anion Gap 16 (5-15) H Blood Urea Nitrogen 41 mg/dL (7-23) H Creatinine 4.6 mg/dL (0.7-1.2) H Estimate Glomerular Filtration Rate mL/min (>60) Glucose Level 138 mg/dL (74-106) H Lactic Acid Level 1.40 mmol/L (0.66-2.22) Uric Acid 6.3 mg/dL (3.0-7.5) Calcium Level 8.3 mg/dL (8.6-10.2) L Total Bilirubin 0.3 mg/dL (0.0-1.2) Aspartate Amino Transferase (AST) 29 U/L (5-40) Alanine Aminotransferase (ALT) 22 U/L (3-41) Alkaline Phosphatase 97 U/L (40-129) Total Creatine Kinase 29 U/L (38-174) L Troponin I < 0.30 ng/mL (<=0.30) Pro-B-Type Natriuretic Peptide 3228 pg/mL (0-450) H Total Protein 5.8 g/dL (6.6-8.7) L Albumin 3.0 g/dL (3.5-5.2) L Globulin 2.8 g/dL Albumin/Globulin Ratio 1.0 (1.0-2.7) Urine Color Yellow Urine Appearance Clear Urine pH 6 (4.5-8.0) Urine Specific [place] 1.020 (1.005-1.035) Urine Protein 4+ (NEGATIVE) H Urine Glucose (UA) 2+ (NEGATIVE) H Urine Ketones Negative (NEGATIVE) Urine Occult Blood Negative (NEGATIVE) Urine Nitrite Negative (NEGATIVE) Urine Bilirubin Negative (NEGATIVE) Urine Urobilinogen Normal MG/DL (0.0-1.0) Urine Leukocyte Esterase Negative (NEGATIVE) Urine RBC 0-2 /HPF (0 - 0) H Urine WBC 2-4 /HPF (0 - 0) Urine Squamous Epithelial Cells Occasional /LPF Urine Amorphous Sediment Few /LPF (NONE) H Urine Bacteria Few /HPF (NONE) Urine Fine Granular Casts 0-2 /LPF (NONE) H EKG Diagnostic Results Rate: normal Rhythm: NSR ST Segments: no acute changes Rhythm Strip Diag. Results EP Interpretation: yes Rhythm: NSR, other - Rate is 69, first-degree AV block and occasional PVCs Chest X-Ray Diagnostic Results EP Interpretation: Yes Findings: no consolidation, no pneumothorax, other - atelectasis L with possible small effusion Number of Views: 1 Other X-Ray Diagnostic Results Other X-Ray Diagnostic Results : X-Ray Ordered: R hand EP Interpretation: Yes Findings: no fractures, no dislocation, other - STS and some bony changes ( not appear like osteomyelitis) Number of Views: 3 Last Vital Signs Date Time Temp Pulse Resp B/P Pulse Ox O2 Delivery O2 Flow Rate FiO2 01/19/17 13:28 97.6 65 20 122/57 98 Room Air Status: improved Disposition: HOME, SELF-CARE Condition: Improved Scripts Bacitracin (Bacitracin) 28.4 Gm Oint...g. 1 APPLIC TOPIC BID, #10 GM Prov: Luis Meza M.D. 01/19/17 Referrals: NOT CHOSEN BLADIMIR/,REFERRING (PCP) Luis Meza M.D. Jan 19, 2017 09:43
[2017-01-19 10:17] LABS: BASOPHILS % (AUTO) 0.5 % (0.0-2.0); EOSINOPHILS % (AUTO) 4.7 % (0.0-3.0); LYMPHOCYTES % (AUTO) 14.1 % (20.0-45.0); MEAN CORPUSCULAR HEMOGLOBIN 30.8 PG (27.0-31.0); MEAN CORPUSCULAR HGB CONC 32.7 G/DL (32.0-36.0); MEAN CORPUSCULAR VOLUME 94 FL (80-99); MEAN PLATELET VOLUME 5.6 FL (6.5-10.1); MONOCYTES % (AUTO) 14.1 % (1.0-10.0); NEUTROPHILS % (AUTO) 66.5 % (45.0-75.0); PLATELET COUNT 255 K/UL (150-450); RED BLOOD COUNT 3.05 M/UL (4.70-6.10); RED CELL DISTRIBUTION WIDTH 13.3 % (11.6-14.8); WHITE BLOOD COUNT 7.9 K/UL (4.8-10.8)
[2017-01-19 10:23] LABS: TROPONIN I < 0.30 ng/mL (<=0.30)
[2017-01-19 10:24] LABS: ALANINE AMINOTRANSFERASE 22 U/L (3-41); ANION GAP 16 (5-15); ASPARTATE AMINO TRANSFERASE 29 U/L (5-40); CALCIUM 8.3 mg/dL (8.6-10.2); CARBON DIOXIDE 29 mEQ/L (20-30); CHLORIDE 92 mEQ/L (98-107); CREATININE 4.6 mg/dL (0.7-1.2); HEMOLYSIS 2; POTASSIUM 3.7 mEQ/L (3.4-4.9); SODIUM 137 mEQ/L (135-145); TOTAL PROTEIN 5.8 g/dL (6.6-8.7); URIC ACID 6.3 mg/dL (3.0-7.5)
[2017-01-19 10:25] LABS: INR 2.5 (0.9-1.1); PROTHROMBIN TIME 26.2 SEC (9.30-11.50)
--- NOTE | 2017-01-19 10:27 | Diagnostic Imaging Report ---
Indication: Chest pain Technique: One view of the chest Comparison: Predominantly 17 Findings: Previously demonstrated interstitial edema has resolved. There is atelectasis at the left lateral lung base. There is slight blunting of left costophrenic sulcus, probably from the atelectatic changes, but there could be a small left pleural effusion The heart is enlarged. Lungs and pleural spaces are otherwise clear. Impression: Left lateral basilar atelectasis. Possible small left pleural effusion. Interim clearing of previously noted generalized parenchymal disease Cardiomegaly
--- NOTE | 2017-01-19 10:28 | Diagnostic Imaging Report ---
Clinical Indication:Vein Technique: 3 views of the right wrist Comparison: None Findings: Ossific density projects dorsally to the proximal carpal row the lateral view. This appears to be corticated and not likely an acute fracture fragment there is associated soft tissue swelling. Otherwise, no definite acute fractures. No dislocations. There are degenerative changes of the fourth and fifth metacarpal phalangeal joints. Impression: Ossific density dorsal to the proximal carpal row, does not appear to be an acute fracture fragment, could be old trauma. Correlate with clinical findings No acute process otherwise. Degenerative changes, as described
[2017-01-19 10:39] VITALS: BP 104/46
[2017-01-19] MEDS ORDERED: Vancomycin 1.5 GM in D5W 325 ML IVPB STA (11:04)
[2017-01-19] MEDS ORDERED: Vancomycin 1 GM in D5W 275 ML IVPB ONE (11:15)
[2017-01-19 11:19] LABS: APPEARANCE,URINE CLEAR; KETONES,URINE NEGATIVE (NEGATIVE); LEUKOCYTE ESTERASE ,URINE NEGATIVE (NEGATIVE); NITRITE,URINE NEGATIVE (NEGATIVE); PH,URINE 6 (4.5-8.0); PROTEIN,URINE 4+ (NEGATIVE); UROBILINOGEN,URINE NORMAL MG/DL (0.0-1.0)
[2017-01-19 11:31] LABS: ERYTHROCYTE SEDIMENTATION RATE 114 MM/HR (0-30)
[2017-01-19 11:49] LABS: AMORPHOUS SEDIMENT,UR FEW /LPF; BACTERIA,URINE FEW /HPF; RBC,URINE 0-2 /HPF (0 - 0); SQUAMOUS EPITHELIAL CELL,UR OCCASIONAL /LPF (NONE/OCC)
[2017-01-19 11:50] LABS: FINE GRANULAR CASTS,URINE 0-2 /LPF
[2017-01-19 12:09] VITALS: BP 112/48
[2017-01-19] MEDS ORDERED: BACITRACIN15 GM TOPIC (12:51)
[2017-01-19 13:21] VITALS: BP 122/57
[2017-01-19 13:28] VITALS: BP 122/57
--- NOTE | 2017-01-21 18:33 | Cardiology Report ---
APPROVED REPORT EKG Measurement Heart [id number] Sinus rhythm with premature atrial complexes Otherwise normal ECG
== END 2017-01-19 13:32 | disposition home or self-care (01) ==
LOC: EMR 09:34 → CANBEDREQ 11:05 → EMR 13:32
DX: L03.113 Cellulitis of right upper limb (principal); N18.6 End stage renal disease; Z99.2 Dependence on renal dialysis; I48.91 Unspecified atrial fibrillation; Z79.01 Long term (current) use of anticoagulants; F17.200 Nicotine dependence, unspecified, uncomplicated; I10 Essential (primary) hypertension; J44.9 Chronic obstructive pulmonary disease, unspecified; Z86.73 Personal history of transient ischemic attack (TIA), and cerebral infarction without residual deficits; F03.90 Unspecified dementia, unspecified severity, without behavioral disturbance, psychotic disturbance, mood disturbance, and anxiety; J98.11 Atelectasis; Z23 Encounter for immunization
CPT/HCPCS: 36415; 71010; 73110; 80053; 81003; 82550; 82962; 83605; 83880; 84484; 84550; 85025; 85610; 85651; 85730; 87040; 90471; 90715; 93005; 96374; 96375; 99284; J2270; J2405; J3370

== ENCOUNTER 2018-08-12 08:20 | Inpatient (IN) | payer MEDICARE, MEDICAID ==
[~2018-08-12] VITALS: Ht 172.7 cm; Wt 56.2 kg
[~2018-08-12 08:20] MED LIST changes: +BACITRACIN15 GM TOPIC
[2018-08-12] MEDS ORDERED: Albuterol ud Inhalation HHN ONE (08:45)
[2018-08-12] MEDS ORDERED: Ipratropium 0.02% Inh Soln 2.5ml UD HHN ONE (08:45)
[2018-08-12] MEDS ORDERED: Azithromycin 250mg tab PO ONE (08:45)
[2018-08-12] MEDS ORDERED: cefTRIAXone 1 GM in NS 55 ML IV SCH (08:45)
--- NOTE | 2018-08-12 08:57 | Emergency Room Report ---
History of Present Illness General Chief Complaint: Dyspnea/Respdistress Source: Patient Present Illness HPI This patient states that he has had cough with sputum production for the past 4 days. He is also had shortness of breath. He states that he has more difficulty breathing at night. The patient is a dialysis patient. He is due for dialysis tomorrow. He denies fever or chills. He denies nausea or vomiting. He has no other complaints. Allergies: Coded Allergies: No Known Allergies (Unverified , 12/16/14) Patient History Past Medical History: see triage record, DM, HTN, [place], CAD, CHF, AFib, GERD, CVA /TIA, dementia, renal disease, dialysis Past Surgical History: appy Social History: Denies: smoking, alcohol use, drug use Reviewed Nursing Documentation: PMH: Agreed; PSxH: Agreed Nursing Documentation-PMH Past Medical History: No History, Except For Hx Cardiac Problems: Yes Hx Hypertension: Yes Hx Pacemaker: No Hx Asthma: No Hx COPD: Yes Hx Diabetes: No Hx Cancer: No Hx Gastrointestinal Problems: Yes Hx Dialysis: Yes - T, TH, Sat History Of Psychiatric Problem: No Hx Neurological Problems: No Hx Cerebrovascular Accident: Yes Hx Dementia: Yes Hx Seizures: No Review of Systems All Other Systems: negative except mentioned in HPI Physical Exam Vital Signs Date Time Temp Pulse Resp B/P (MAP) Pulse Ox O2 Delivery O2 Flow Rate FiO2 08/12/18 08:24 98.0 86 22 130/67 88 Room Air 98.1 Sp02 EP Interpretation: reviewed, normal General Appearance: no apparent distress, alert, GCS 15, non-toxic Head: normocephalic, atraumatic Eyes: bilateral eye normal inspection, bilateral eye PERRL ENT: hearing grossly normal, normal pharynx, no angioedema, normal voice Neck: full range of motion, supple/symm/no masses Respiratory: chest non-tender, no respiratory distress, no retraction, no accessory muscle use, rales, rhonchi, speaking full sentences, wheezing Cardiovascular #1: no edema, tachycardia, irregularly irregular Gastrointestinal: normal bowel sounds, non tender, soft, non-distended, no guarding, no rebound Rectal: deferred Musculoskeletal: back normal, normal range of motion, non-tender Neurologic: alert, oriented x3, responsive, motor strength/tone normal, sensory intact, speech normal Psychiatric: judgement/insight normal, memory normal, mood/affect normal, no suicidal/homicidal ideation Skin: normal color, no rash, warm/dry, well hydrated Medical Decision Making Diagnostic Impression: Primary Impression: Acute exacerbation of CHF (congestive heart failure) Additional Impressions: Pneumonia Coagulopathy ER Course This patient presents with respiratory distress. He is found to have a CHF exacerbation. He may also have an underlying pneumonia although, it is difficult to assess based on chest x-ray as he has diffuse patchy opacities. He has a history of cough and so I presume that he does have an underlying pneumonia. The patient is frail and elderly, so I felt that I should place the patient on BiPAP to provide comfort for work of breathing. Also, the patient will need dialysis and this would not be occurring until the patient is an inpatient psych felt that this would also provide some relief to the patient. He was given broad-spectrum antibiotics. He is admitted to the ICU step down. This patient is critically ill. This patient required complex medical decision- making, aggressive intervention, extensive laboratory workup and monitoring. Critical care time: 40 minutes. Laboratory Tests Test 08/12/18 08:30 08/12/18 09:05 Sodium Level 138 MMOL/L (136-145) Potassium Level 4.5 MMOL/L (3.5-5.1) Chloride Level 100 MMOL/L (98-107) Carbon Dioxide Level 31 MMOL/L (21-32) Anion Gap 7 mmol/L (5-15) Blood Urea Nitrogen 43 mg/dL (7-18) H Creatinine 6.0 MG/DL (0.55-1.30) H Estimate Glomerular Filtration Rate mL/min (>60) Glucose Level 123 MG/DL (74-106) H Calcium Level 7.9 MG/DL (8.5-10.1) L Total Bilirubin 0.8 MG/DL (0.2-1.0) Aspartate Amino Transferase (AST) 4 U/L (15-37) L Alanine Aminotransferase (ALT) 23 U/L (12-78) Alkaline Phosphatase 124 U/L (46-116) H Troponin I 0.045 ng/mL (0.000-0.056) C-Reactive Protein, Quantitative 12.0 mg/dL (0.00-0.90) H Total Protein 6.7 G/DL (6.4-8.2) Albumin 2.6 G/DL (3.4-5.0) L Globulin 4.1 g/dL Albumin/Globulin Ratio 0.6 (1.0-2.7) L White Blood Count 7.2 K/UL (4.8-10.8) Red Blood Count 2.86 M/UL (4.70-6.10) L Hemoglobin 10.0 G/DL (14.2-18.0) L Hematocrit 30.0 % (42.0-52.0) L Mean Corpuscular Volume 105 FL (80-99) H Mean Corpuscular Hemoglobin 34.9 PG (27.0-31.0) H Mean Corpuscular Hemoglobin Concent 33.3 G/DL (32.0-36.0) Red Cell Distribution Width 13.0 % (11.6-14.8) Platelet Count 149 K/UL (150-450) L Mean Platelet Volume 6.5 FL (6.5-10.1) Neutrophils (%) (Auto) 76.0 % (45.0-75.0) H Lymphocytes (%) (Auto) 11.4 % (20.0-45.0) L Monocytes (%) (Auto) 11.0 % (1.0-10.0) H Eosinophils (%) (Auto) 0.9 % (0.0-3.0) Basophils (%) (Auto) 0.8 % (0.0-2.0) Prothrombin Time 63.8 SEC (9.30-11.50) H Prothrombin Time INR 6.7 (0.9-1.1) *H PTT 97 SEC (23-33) H Microbiology Date/Time Source Procedure Growth Status 08/12/18 08:55 Nasal Nares Influenza Types A,B Antigen (JOSEFA) - Final Complete EKG Diagnostic Results Rate: tachycardiac Rhythm: other - A.fib ST Segments: no acute changes Rhythm Strip Diag. Results EP Interpretation: yes Rate: 90's Rhythm: no PVC's, no ectopy, other - A.fib Chest X-Ray Diagnostic Results Chest X-Ray Diagnostic Results : Chest X-Ray Ordered: Yes # of Views/Limited/Complete: 1 View Indication: Shortness of Breath Interpretation: other - Diffuse patchy opacities Impression: Other - See above. Electronically Signed by: Dina Last Vital Signs Date Time Temp Pulse Resp B/P (MAP) Pulse Ox O2 Delivery O2 Flow Rate FiO2 08/12/18 08:24 98.0 86 22 130/67 88 Room Air 98.1 Disposition: ADMITTED INPATIENT Condition: Critical Referrals: Ady Gómez MD (PCP) Rissa Shelton DO Aug 12, 2018 08:57
[2018-08-12 09:15] VITALS: BP 130/67
[2018-08-12] MEDS ORDERED: Heparin 2000 units/Ns 1000ml INJ ONE (09:15)
[2018-08-12] MEDS ORDERED: Lidocaine 1% Plain 30 ml INJ ONE (09:15)
[2018-08-12 09:31] LABS: ALANINE AMINOTRANSFERASE 23 U/L (12-78); ALBUMIN 2.6 G/DL (3.4-5.0); ALBUMIN/GLOBULIN RATIO 0.6 (1.0-2.7); ALKALINE PHOSPHATASE 124 U/L (46-116); BILIRUBIN,TOTAL 0.8 MG/DL (0.2-1.0); BLOOD UREA NITROGEN 43 mg/dL (7-18); CALCIUM 7.9 MG/DL (8.5-10.1)
[2018-08-12 09:40] LABS: ANION GAP 7 mmol/L (5-15); CARBON DIOXIDE 31 MMOL/L (21-32); CHLORIDE 100 MMOL/L (98-107); POTASSIUM 4.5 MMOL/L (3.5-5.1); SODIUM 138 MMOL/L (136-145)
[2018-08-12 09:40] LABS: BASOPHILS % (AUTO) 0.8 % (0.0-2.0); EOSINOPHILS % (AUTO) 0.9 % (0.0-3.0); LYMPHOCYTES % (AUTO) 11.4 % (20.0-45.0); MEAN CORPUSCULAR VOLUME 105 FL (80-99); PLATELET COUNT 149 K/UL (150-450); RED BLOOD COUNT 2.86 M/UL (4.70-6.10); WHITE BLOOD COUNT 7.2 K/UL (4.8-10.8)
[2018-08-12 09:41] LABS: ASPARTATE AMINO TRANSFERASE 4 U/L (15-37)
[2018-08-12 09:56] LABS: INR 6.7 (0.9-1.1)
--- NOTE | 2018-08-12 10:11 | Diagnostic Imaging Report ---
Indication: Dyspnea Comparison: 01/19/2017 A single view chest radiograph was obtained. Findings: Reticular densities and prominent vascularity demonstrated especially in the left lung. The heart is enlarged. Bones are osteopenic. IMPRESSION: Interstitial pulmonary edema. Pneumonia in the left upper lobe not excluded
[2018-08-12] MEDS ORDERED: Docusate 100mg cap ORAL SCH (13:00)
[2018-08-12] MEDS ORDERED: Meclizine 25mg tab ORAL PRN (13:00)
[2018-08-12] MEDS: Docusate 100mg cap ORAL SCH ×2 (13:00→17:38)
--- NOTE | 2018-08-12 13:00 | History & Physical ---
History and Physical History & Physicial in ER fever chills SOB bloody sputum This patient states that he has had cough with sputum production for the past 4 days. He is also had shortness of breath. He states that he has more difficulty breathing at night. The patient is a dialysis patient. He is due for dialysis tomorrow. He denies fever or chills. He denies nausea or vomiting. He has no other complaints. 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
[2018-08-12] MEDS ORDERED: VENOFER50 MG/2.5 IV (13:06)
[2018-08-12] MEDS ORDERED: TRIAMCINOLONE A15 G1 TP (13:06)
[2018-08-12] MEDS ORDERED: ARANESP40 MCG/1 M IV (13:06)
[2018-08-12] MEDS ORDERED: WARFARIN SODIUM1 MG ORAL (13:06)
[2018-08-12] MEDS ORDERED: VITAMIN B COMP1 EAC2 ORAL (13:06)
[2018-08-12] MEDS ORDERED: ALLOPURINOL100 M1 ORAL (13:14)
[2018-08-12] MEDS ORDERED: OMEGA 3 FISH O1 EAC1 PO (13:14)
[2018-08-12] MEDS ORDERED: ZEMPLAR2 MCG/1 ML IV (13:14)
--- NOTE | 2018-08-12 13:19 | Consultation ---
History of Present Illness General Date patient seen: Aug 12, 2018 Chief Complaint: Dyspnea/Respdistress Present Illness HPI 83 year old male with hx of DM, HTN, DC, CAD, CHF, AFib, GERD, CVA/TIA, dementia , renal disease, on dialysis presented to ER with CC of cough with sputum production for the past 4 days. He is also had shortness of breath. He states that he has more difficulty breathing at night. He denies fever or chills. He denies nausea or vomiting. He has no other complaints. His CXR showed pulmonary edema and possible infiltrate. He is admitted to [facility] for further management. Allergies: Coded Allergies: BANANA (Verified Allergy, Severe, 08/12/18) GIL (Verified Allergy, Severe, 08/12/18) CARROT (Verified Allergy, Severe, 08/12/18) Dairy (Verified Allergy, Severe, 08/12/18) GRAPE (Verified Allergy, Severe, 08/12/18) Pork (Verified Allergy, Severe, 08/12/18) Potato (Verified Allergy, Severe, 08/12/18) Medication History Scheduled Allopurinol* (Allopurinol*), 200 MG ORAL DAILY Allopurinol* (Allopurinol*), 100 MG ORAL BID, (Reported) Aspirin (Aspirin EC), 81 MG ORAL DAILY, (Reported) Bacitracin (Bacitracin), 1 APPLIC TOPIC BID Carvedilol (Coreg), 12.5 MG ORAL EVERY 12 HOURS Darbepoetin Issa In Polysorbat (Aranesp), 35 MCG IV ONCE A WEEK, (Reported) Docusate Sodium* (Colace*), 100 MG ORAL THREE TIMES A DAY Finasteride (Finasteride), 5 MG ORAL DAILY Hydralazine Hcl* (Hydralazine Hcl*), 25 MG ORAL Q8HR Iron Sucrose Complex (Venofer), 50 MG IV ONCE A WEEK, (Reported) Meclizine Hcl* (Antivert*), 12.5 MG ORAL TID Mirtazapine* (Mirtazapine*), 15 MG ORAL BEDTIME Nifedipine Xl* (Procardia Xl*), 60 MG ORAL Q12HR Nifedipine Xl* (Procardia Xl*), 30 MG ORAL DAILY [place]-3 Fatty Acids/Fish Oil ([place] 3 Fish Oil Softgel), 1 EACH PO DAILY, ( Reported) Omeprazole (Omeprazole), 20 MG ORAL DAILY, (Reported) Tamsulosin HCl (Flomax), 0.4 MG ORAL TWICE A DAY Trazodone Hcl (Desyrel), 50 MG ORAL QHS Triamcinolone Acetonide (Triamcinolone Acetonide), 15 GM TP BID, (Reported) Vitamin B Complex (Vitamin B Complex), 1 CAP ORAL DAILY, (Reported) Warfarin Sod* (Coumadin*), 3 MG PO COUMADIN Warfarin Sod* (Warfarin Sod*), 1 MG ORAL DAILY, (Reported) Scheduled PRN Acetaminophen* (Acetaminophen 325MG Tablet*), 650 MG ORAL Q4H PRN Miscellaneous Medications Paricalcitol (Zemplar), 2 MCG IV, (Reported) Discontinued Medications Unable to Obtain Medications (Unable To Obtain Meds), (Reported) Discontinued Reason: MD discontinued med Patient History Healthcare decision maker Resuscitation status Advanced Directive on File Past Medical/Surgical History Past Medical/Surgical History: (1) ESRD (end stage renal disease) on dialysis (2) COPD (chronic obstructive pulmonary disease) (3) CVA (cerebral infarction) (4) Interstitial lung disease (5) Debility Physical Exam General Appearance: cachetic Lines, tubes and drains: peripheral HEENT: normocephalic, atraumatic Neck: non-tender, normal alignment Respiratory/Chest: rhonchi - left, rhonchi - right Breasts: no masses Cardiovascular/Chest: normal peripheral pulses, normal rate Abdomen: normal bowel sounds, soft Genitourinary/Rectal: normal genital exam Extremities: normal range of motion Last 24 Hour Vital Signs Date Time Temp Pulse Resp B/P (MAP) Pulse Ox O2 Delivery O2 Flow Rate FiO2 08/12/18 09:08 90 22 100 Nasal Cannula 3.0 32 08/12/18 08:49 90 18 100 Nasal Cannula 3.0 32 08/12/18 08:49 78 26 Nasal Cannula 3.0 32 08/12/18 08:49 32 08/12/18 08:24 98.0 86 22 130/67 88 Room Air 98.1 Laboratory Tests Test 08/12/18 08:30 08/12/18 09:05 Sodium Level 138 MMOL/L (136-145) Potassium Level 4.5 MMOL/L (3.5-5.1) Chloride Level 100 MMOL/L (98-107) Carbon Dioxide Level 31 MMOL/L (21-32) Anion Gap 7 mmol/L (5-15) Blood Urea Nitrogen 43 mg/dL (7-18) H Creatinine 6.0 MG/DL (0.55-1.30) H Estimat Glomerular Filtration Rate mL/min (>60) Glucose Level 123 MG/DL (74-106) H Calcium Level 7.9 MG/DL (8.5-10.1) L Total Bilirubin 0.8 MG/DL (0.2-1.0) Aspartate Amino Transf (AST/SGOT) 4 U/L (15-37) L Alanine Aminotransferase (ALT/SGPT) 23 U/L (12-78) Alkaline Phosphatase 124 U/L (46-116) H Troponin I 0.045 ng/mL (0.000-0.056) C-Reactive Protein, Quantitative Pending Total Protein 6.7 G/DL (6.4-8.2) Albumin 2.6 G/DL (3.4-5.0) L Globulin 4.1 g/dL Albumin/Globulin Ratio 0.6 (1.0-2.7) L White Blood Count 7.2 K/UL (4.8-10.8) Red Blood Count 2.86 M/UL (4.70-6.10) L Hemoglobin 10.0 G/DL (14.2-18.0) L Hematocrit 30.0 % (42.0-52.0) L Mean Corpuscular Volume 105 FL (80-99) H Mean Corpuscular Hemoglobin 34.9 PG (27.0-31.0) H Mean Corpuscular Hemoglobin Concent 33.3 G/DL (32.0-36.0) Red Cell Distribution Width 13.0 % (11.6-14.8) Platelet Count 149 K/UL (150-450) L Mean Platelet Volume 6.5 FL (6.5-10.1) Neutrophils (%) (Auto) 76.0 % (45.0-75.0) H Lymphocytes (%) (Auto) 11.4 % (20.0-45.0) L Monocytes (%) (Auto) 11.0 % (1.0-10.0) H Eosinophils (%) (Auto) 0.9 % (0.0-3.0) Basophils (%) (Auto) 0.8 % (0.0-2.0) Prothrombin Time 63.8 SEC (9.30-11.50) H Prothromb Time International Ratio 6.7 (0.9-1.1) *H Activated Partial Thromboplast Time 97 SEC (23-33) H Microbiology Date/Time Source Procedure Growth Status 08/12/18 08:55 Nasal Nares Influenza Types A,B Antigen (JOSEFA) - Final Complete Height (Feet): 5 Height (Inches): 8.00 Weight (Pounds): 140 Medications Current Medications Medications (Trade) Dose Ordered Sig/Kris Route PRN Reason Start Time Stop Time Status Last Admin Dose Admin Acetaminophen (Tylenol) 650 mg Q4H PRN ORAL pain and Temp of 100 F 08/12/18 13:00 09/11/18 12:59 Albuterol Sulfate (Proventil) 2.5 mg Q4HRT HHN 08/12/18 15:00 08/17/18 14:59 Azithromycin (Zithromax) 500 mg DAILY ORAL 08/13/18 09:00 08/20/18 08:59 Carvedilol (Coreg) 12.5 mg EVERY 12 HOURS ORAL 08/12/18 21:00 09/11/18 20:59 Ceftriaxone Sodium 1 gm/ Sodium Chloride 55 ml @ 110 mls/hr Q24H IV 08/12/18 08:45 08/13/18 08:44 08/12/18 09:55 Ceftriaxone Sodium 2 gm/ Dextrose 55 ml @ 110 mls/hr Q24H IVPB 08/13/18 09:00 08/20/18 08:59 Chlorhexidine Gluconate (Anni-Hex 2%) 1 applic DAILY@2000 TOPIC 08/12/18 20:00 09/11/18 19:59 Docusate Sodium (Colace) 100 mg THREE TIMES A DAY ORAL 08/12/18 13:00 09/11/18 12:59 Epoetin Issa (Procrit (for ESRD on dialysis)) 7,000 units SUN-SUN-SUN SUBQ 08/12/18 21:00 09/11/18 20:59 Hydralazine HCl (Apresoline) 25 mg Q8HR ORAL 08/12/18 14:00 09/11/18 13:59 Meclizine HCl (Antivert) 12.5 mg TIDPRN PRN ORAL dizziness 08/12/18 13:00 09/11/18 12:59 Mirtazapine (Remeron) 15 mg BEDTIME ORAL 08/12/18 21:00 09/11/18 20:59 Ondansetron HCl (Zofran) 4 mg Q6H PRN IVP Nausea & Vomiting 08/12/18 13:15 09/11/18 13:14 Pantoprazole (Protonix) 40 mg EVERY 12 HOURS ORAL 08/12/18 21:00 09/11/18 20:59 Tamsulosin HCl (Flomax) 0.4 mg QHS ORAL 08/12/18 21:00 09/11/18 20:59 Trazodone HCl (Desyrel) 50 mg QHS ORAL 08/12/18 21:00 09/11/18 20:59 Assessment/Plan Problem List: (1) Acute respiratory failure ICD Codes: J96.00 - Acute respiratory failure SNOMED: 79680541 (2) Aspiration pneumonia ICD Codes: J69.0 - Pneumonitis due to inhalation of food and vomit SNOMED: 520757229 (3) COPD (chronic obstructive pulmonary disease) ICD Codes: J44.9 - Chronic obstructive pulmonary disease, unspecified SNOMED: 40343906 (4) Interstitial lung disease ICD Codes: J84.9 - Interstitial pulmonary disease, unspecified SNOMED: 46638091, 830414210 (5) Non-compliance with treatment ICD Codes: Z91.19 - Noncompliance with treatment SNOMED: 8295531 (6) Hypertension ICD Codes: I10 - Hypertension SNOMED: 55342747 (7) ESRD (end stage renal disease) on dialysis ICD Codes: N18.6 - End stage renal failure on dialysis; Z99.2 - Dependence on renal dialysis SNOMED: 979742124 (8) Debility ICD Codes: R53.81 - Debility SNOMED: 55845934 Assessment/Plan check sputum for c/s respiratory treatment prn BIPAP iv abx, correct coagulopathy HD to correct azotemia monitor BP Darius Watson MD Aug 12, 2018 13:19
[2018-08-12 13:40] VITALS: BP 150/70
--- NOTE | 2018-08-12 14:11 | Infectious Diseases Prog Note ---
Assessment/Plan Problems: (1) HCAP (healthcare-associated pneumonia) Assessment & Plan: will start zosyn and vancomycin empirically since HD patient and send sputum culture (2) Acute respiratory failure Assessment & Plan: due to the above, continue oxygen and inhalers , monitor CXR (3) Coagulopathy Assessment & Plan: hold anticoagulation, monitor INR, give vit K as needed (4) Hemoptysis Assessment & Plan: due to the above , hold anticoagulation , monitor H/H , transfuse blood as needed, monitor CXR . (5) ESRD (end stage renal disease) on dialysis Assessment & Plan: on HD , renal is following Subjective Allergies: Coded Allergies: No Known Allergies (Unverified , 12/16/14) Objective Vital Signs Last 24 Hour Vital Signs Date Time Temp Pulse Resp B/P (MAP) Pulse Ox O2 Delivery O2 Flow Rate FiO2 08/12/18 09:08 90 22 100 Nasal Cannula 3.0 32 08/12/18 08:49 90 18 100 Nasal Cannula 3.0 32 08/12/18 08:49 78 26 Nasal Cannula 3.0 32 08/12/18 08:49 32 08/12/18 08:24 98.0 86 22 130/67 88 Room Air 98.1 Height (Feet): 5 Height (Inches): 8.00 Weight (Pounds): 140 Microbiology Date/Time Source Procedure Growth Status 08/12/18 08:55 Nasal Nares Influenza Types A,B Antigen (JOSEFA) - Final Complete Laboratory Tests Test 08/12/18 08:30 08/12/18 09:05 Sodium Level 138 MMOL/L (136-145) Potassium Level 4.5 MMOL/L (3.5-5.1) Chloride Level 100 MMOL/L (98-107) Carbon Dioxide Level 31 MMOL/L (21-32) Anion Gap 7 mmol/L (5-15) Blood Urea Nitrogen 43 mg/dL (7-18) H Creatinine 6.0 MG/DL (0.55-1.30) H Estimat Glomerular Filtration Rate mL/min (>60) Glucose Level 123 MG/DL (74-106) H Calcium Level 7.9 MG/DL (8.5-10.1) L Total Bilirubin 0.8 MG/DL (0.2-1.0) Aspartate Amino Transf (AST/SGOT) 4 U/L (15-37) L Alanine Aminotransferase (ALT/SGPT) 23 U/L (12-78) Alkaline Phosphatase 124 U/L (46-116) H Troponin I 0.045 ng/mL (0.000-0.056) C-Reactive Protein, Quantitative 12.0 mg/dL (0.00-0.90) H Total Protein 6.7 G/DL (6.4-8.2) Albumin 2.6 G/DL (3.4-5.0) L Globulin 4.1 g/dL Albumin/Globulin Ratio 0.6 (1.0-2.7) L White Blood Count 7.2 K/UL (4.8-10.8) Red Blood Count 2.86 M/UL (4.70-6.10) L Hemoglobin 10.0 G/DL (14.2-18.0) L Hematocrit 30.0 % (42.0-52.0) L Mean Corpuscular Volume 105 FL (80-99) H Mean Corpuscular Hemoglobin 34.9 PG (27.0-31.0) H Mean Corpuscular Hemoglobin Concent 33.3 G/DL (32.0-36.0) Red Cell Distribution Width 13.0 % (11.6-14.8) Platelet Count 149 K/UL (150-450) L Mean Platelet Volume 6.5 FL (6.5-10.1) Neutrophils (%) (Auto) 76.0 % (45.0-75.0) H Lymphocytes (%) (Auto) 11.4 % (20.0-45.0) L Monocytes (%) (Auto) 11.0 % (1.0-10.0) H Eosinophils (%) (Auto) 0.9 % (0.0-3.0) Basophils (%) (Auto) 0.8 % (0.0-2.0) Prothrombin Time 63.8 SEC (9.30-11.50) H Prothromb Time International Ratio 6.7 (0.9-1.1) *H Activated Partial Thromboplast Time 97 SEC (23-33) H Current Medications Medications (Trade) Dose Ordered Sig/Kris Route PRN Reason Start Time Stop Time Status Last Admin Dose Admin Acetaminophen (Tylenol) 650 mg Q4H PRN ORAL pain and Temp of 100 F 08/12/18 13:00 11/14/18 12:59 Albuterol Sulfate (Proventil) 2.5 mg Q4HRT HHN 08/12/18 15:00 08/17/18 14:59 Azithromycin (Zithromax) 500 mg DAILY ORAL 08/13/18 09:00 08/20/18 08:59 Carvedilol (Coreg) 12.5 mg EVERY 12 HOURS ORAL 08/12/18 21:00 09/11/18 20:59 Ceftriaxone Sodium 1 gm/ Sodium Chloride 55 ml @ 110 mls/hr Q24H IV 08/12/18 08:45 08/13/18 08:44 08/12/18 09:55 Ceftriaxone Sodium 2 gm/ Dextrose 55 ml @ 110 mls/hr Q24H IVPB 08/13/18 09:00 08/20/18 08:59 Chlorhexidine Gluconate (Anni-Hex 2%) 1 applic DAILY@2000 TOPIC 08/12/18 20:00 09/11/18 19:59 Docusate Sodium (Colace) 100 mg THREE TIMES A DAY ORAL 08/12/18 13:00 09/11/18 12:59 Epoetin Issa (Procrit (for ESRD on dialysis)) 7,000 units SUN-SUN-SUN SUBQ 08/12/18 21:00 09/11/18 20:59 Hydralazine HCl (Apresoline) 25 mg Q8HR ORAL 08/12/18 14:00 09/11/18 13:59 Meclizine HCl (Antivert) 12.5 mg TIDPRN PRN ORAL dizziness 08/12/18 13:00 09/11/18 12:59 Mirtazapine (Remeron) 15 mg BEDTIME ORAL 08/12/18 21:00 09/11/18 20:59 Ondansetron HCl (Zofran) 4 mg Q6H PRN IVP Nausea & Vomiting 08/12/18 13:15 09/11/18 13:14 Pantoprazole (Protonix) 40 mg EVERY 12 HOURS ORAL 08/12/18 21:00 09/11/18 20:59 Tamsulosin HCl (Flomax) 0.4 mg QHS ORAL 08/12/18 21:00 09/11/18 20:59 Trazodone HCl (Desyrel) 50 mg QHS ORAL 08/12/18 21:00 09/11/18 20:59 Donte Null M.D. Aug 12, 2018 14:11
[2018-08-12] MEDS ORDERED: Piperacillin/Tazobactam 2.25 GM in D5W 55 ML IVPB SCH (15:00)
[2018-08-12] MEDS ORDERED: Vancomycin 1gm/D5W 275ml IVPB ONE ×2 (15:00)
[2018-08-12] MEDS: HydrALAZINE 25mg tab ORAL SCH ×2 (15:04→22:09)
[2018-08-12] MEDS: Albuterol ud Inhalation HHN SCH ×3 (15:12→23:09)
[2018-08-12 15:57] VITALS: BP 152/63
[2018-08-12] MEDS: Piperacillin/Tazobactam 2.25 GM in D5W 55 ML IVPB SCH (17:38)
[2018-08-12 20:00] VITALS: BP 158/66
[2018-08-12] MEDS: Dyna-Hex 2% Top Sol 2oz TOPIC SCH (20:00)
--- NOTE | 2018-08-12 20:00 | History and Physical Report ---
DATE OF ADMISSION: 08/12/2018 HISTORY OF PRESENT ILLNESS: The patient is an 83-year-old male with end-stage renal disease, under my care for his dialysis-related treatment. The patient comes in to emergency room here at [place] with cough. He has history of fever, chills, sputum which was bloody, and shortness of breath. After initial evaluation, the patient is being admitted for further management. PAST MEDICAL HISTORY: Significant for multiinfarct brain disease, hypertension, pulmonary hypertension, coronary artery disease, history of cardiac arrhythmia with atrial fibrillation, paroxysmal atrial fibrillation. The patient has anemia related to chronic kidney disease. The patient gets dialysis twice a week as he refuses to get dialyzed 3 times a week. PHYSICAL EXAMINATION: GENERAL: Seen in emergency room here at [place] Room #4. The patient is not in any acute distress. VITAL SIGNS: Blood pressure 130/64, pulse rate 90, temperature 98 degrees, pulse oximetry on oxygen is 100%. HEENT: Head is normocephalic. NECK: Supple. LUNGS: Basal rhonchi. Decreased breath sound over the bases. HEART: Slightly tachycardic and irregular. ABDOMEN: Soft. Scars of the previous surgery present. EXTREMITIES: Lower extremities have no edema. LABORATORY DATA: White blood cells 7.2, hemoglobin 10. The creatinine is 6, potassium 4.5, albumin is 2.6. The INR is 6.7. IMPRESSION: The patient is an 83-year-old [place] male with end-stage renal disease, who presents with fever, chills, cough, shortness of breath, and hemoptysis. INR is elevated. He has history of paroxysmal atrial fibrillation. Most likely, the patient has pneumonia. PLAN: To give antibiotics, pulmonary toilet, hemodialysis with ultrafiltration. Monitor INR and I have asked Dr. Watson for Pulmonary and Dr. Null for ID assistance. According to how the patient's condition evolves, we will make the proper changes in our future management. Ady Gómez M.D. DR: Gil JOB#: [id number] CC:
[2018-08-12] MEDS: TraZODone 50mg tab ORAL SCH (20:49)
[2018-08-12] MEDS: Carvedilol 12.5mg tab ORAL SCH (20:49)
[2018-08-12] MEDS: Tamsulosin 0.4mg cap ORAL SCH (20:50)
[2018-08-12] MEDS: Epogen (for ESRD on dialysis) SUBQ SCH (20:55)
--- NOTE | 2018-08-12 22:45 | Consultation ---
DATE OF CONSULTATION: 08/12/2018 INFECTIOUS DISEASES CONSULTATION CONSULTING PHYSICIAN: Donte Null M.D. REQUESTING PHYSICIAN: dAy Gómez M.D. REASON FOR CONSULTATION: Pneumonia with hemoptysis in hemodialysis patient. Recommendation for antibiotics treatment. HISTORY OF PRESENT ILLNESS: The patient is an 83-year-old [place] male who immigrated [place] the [place] ago with past medical history of diabetes, hypertension, coronary artery disease, congestive heart failure, atrial fibrillation, GERD, CVA, dementia, and end-stage renal disease, on hemodialysis twice weekly as per . He presented to [facility] Emergency Room with cough productive of phlegm mixed with blood for the last four days. He also had associated shortness of breath and dyspnea. The patient also had difficulty breathing mainly when he lay flat at night at home. The patient had his last dialysis on Sunday. He gets dialysis only twice weekly as per his . He denied any recent travel or sick contact. No history of tuberculosis or exposure to TB. Denied any fever or chills. No nausea or vomiting. No other associated symptoms. In the emergency room, the patient had a chest x-ray, which showed infiltration mainly in the left upper lobe so he was started on ceftriaxone and Zithromax. An Infectious Diseases consult was requested for antibiotics treatment and further management. As of note, the patient is mainly [place] speaker. History was mainly obtained by head of mathematics. REVIEW OF SYSTEMS: A 14-point of systems reviewed were all negative apart from the one I mentioned above in my H and P. PAST MEDICAL HISTORY: Significant for diabetes, hypertension, coronary artery disease, congestive heart failure, atrial fibrillation, GERD, CVA, dementia, chronic renal disease, end-stage on hemodialysis. PAST SURGICAL HISTORY: He had appendectomy. MEDICATIONS: He is on ceftriaxone and Zithromax. For the rest of his medications, please refer to [facility]. ALLERGIES: He is allergic to banana, beans, grape, pork and potato. SOCIAL HISTORY: The patient lives at home with his . Denied recent use of any alcohol, tobacco, or drugs. FAMILY HISTORY: Noncontributory. PHYSICAL EXAMINATION: VITAL SIGNS: Temperature 97.9, pulse 94, respirations 20, blood pressure 152/63, pulse ox 95% on two liters nasal cannula. GENERAL: In general elderly male, lying in bed, coughing and wheezing. Awake and alert, not in distress the bedside. at bedside. HEENT: Normocephalic and atraumatic. Pupils reactive to light and equal. Moist oral mucosa. No exudate or thrush. NECK: Supple. No lymphadenopathy. CARDIOVASCULAR: Regular rate and rhythm. No murmur. No gallop. LUNGS: He had wheezing with diminished breathing sounds mainly on the left side. Normal breathing effort. Abdomen is soft, obese, nontender, nondistended. Normal bowel sounds. No hepatosplenomegaly. No ascites. EXTREMITIES: Trace edema. No cyanosis. LABORATORY AND DIAGNOSTIC DATA: White count of 7.2, hemoglobin of 10, platelet count of 149. BUN of 43 and creatinine of 6. AST of 4 and ALT of 23. Microbiology, influenza screening A and B both negative. Imaging, chest x-ray showed interstitial pulmonary edema, pneumonia in the left upper lobe not excluded. ASSESSMENT AND RECOMMENDATION: 1. Healthcare-acquired pneumonia. We will start the patient on Zosyn and vancomycin empirically since he has hemodialysis patient and send his sputum culture to identify exact cause. The patient already was screened with influenza A and B in the ER and both were negative. Monitor chest x-ray. Recommend aspiration precaution and swallow evaluation to rule out aspiration as an etiology. 2. Acute respiratory failure due to the above. Continue oxygen and inhalers. Monitor chest x-ray. Pulmonary is following. 3. Coagulopathy. Hold anticoagulation. Monitor INR. Give vitamin K as needed. 4. Hemoptysis suspect due to the above with coagulopathy. Hold anticoagulation. Monitor H and H. Transfuse blood as needed. Aspiration precaution. Monitor chest x-ray. Pulmonary is following. 5. End-stage renal disease, on hemodialysis. Renal is following. Thank you for the consult. ID will continue to follow. Please free to call with any question. Donet Null M.D. DR: Fallon JOB#: [id number] CC: ISABELLA
[2018-08-13] VITALS: BP_SYST 108; BP_SYST 156; BP_DIAS 67; BP_DIAS 80
[2018-08-13] MEDS: Piperacillin/Tazobactam 2.25 GM in D5W 55 ML IVPB SCH ×3 (01:33→18:22)
[2018-08-13] MEDS: Albuterol ud Inhalation HHN SCH ×6 (03:19→22:37)
[2018-08-13 04:00] VITALS: BP 156/80
[2018-08-13 05:17] LABS: EOSINOPHILS % (AUTO) 0.8 % (0.0-3.0); HEMATOCRIT 30.7 % (42.0-52.0); HEMOGLOBIN 10.2 G/DL (14.2-18.0); LYMPHOCYTES % (AUTO) 6.5 % (20.0-45.0); MEAN CORPUSCULAR VOLUME 106 FL (80-99); MONOCYTES % (AUTO) 8.1 % (1.0-10.0); NEUTROPHILS % (AUTO) 83.6 % (45.0-75.0); PLATELET COUNT 167 K/UL (150-450); RED CELL DISTRIBUTION WIDTH 13.4 % (11.6-14.8); WHITE BLOOD COUNT 9.1 K/UL (4.8-10.8)
[2018-08-13] MEDS: HydrALAZINE 25mg tab ORAL SCH ×3 (05:45→22:07)
[2018-08-13] MEDS ORDERED: Vancomycin 1gm/D5W 275ml IVPB SCH ×2 (07:00)
[2018-08-13 07:04] LABS: ALANINE AMINOTRANSFERASE 23 U/L (12-78); ALBUMIN 2.7 G/DL (3.4-5.0); ALBUMIN/GLOBULIN RATIO 0.7 (1.0-2.7); ALKALINE PHOSPHATASE 134 U/L (46-116); ANION GAP 14 mmol/L (5-15); ASPARTATE AMINO TRANSFERASE 18 U/L (15-37); BILIRUBIN,TOTAL 0.8 MG/DL (0.2-1.0); BLOOD UREA NITROGEN 55 mg/dL (7-18); CALCIUM 8.5 MG/DL (8.5-10.1); CARBON DIOXIDE 25 MMOL/L (21-32); CHLORIDE 98 MMOL/L (98-107); CHOLESTEROL 168 MG/DL (< 200); CREATININE 6.9 MG/DL (0.55-1.30); FERRITIN 1070 NG/ML (8-388); GAMMA GLUTAMYL TRANSPEPTIDASE 97 U/L (5-85); HDL CHOLESTEROL 33 MG/DL (40-60); PHOSPHORUS 5.8 MG/DL (2.5-4.9); POTASSIUM 5.2 MMOL/L (3.5-5.1); SODIUM 137 MMOL/L (136-145); TRIGLYCERIDES 119 MG/DL (30-150)
[2018-08-13 07:07] LABS: INR 7.9 (0.9-1.1)
[2018-08-13 07:55] LABS: % IRON SATURATION 21 % (15-50); IRON 30 ug/dL (50-175); TOTAL IRON BINDING CAPACITY 141 ug/dL (250-450)
[2018-08-13 08:00] VITALS: BP 135/69
[2018-08-13] MEDS ORDERED: Azithromycin 250mg tab ORAL SCH (09:00)
[2018-08-13] MEDS ORDERED: cefTRIAXone 2 GM in D5W 55 ML IVPB SCH (09:00)
[2018-08-13] MEDS: Carvedilol 12.5mg tab ORAL SCH (09:33)
[2018-08-13] MEDS: Docusate 100mg cap ORAL SCH ×3 (09:33→18:22)
--- NOTE | 2018-08-13 09:39 | Pulmonology Progress Note ---
Assessment/Plan Problems: (1) Acute respiratory failure (2) Aspiration pneumonia (3) COPD (chronic obstructive pulmonary disease) (4) Interstitial lung disease (5) Non-compliance with treatment (6) Hypertension (7) ESRD (end stage renal disease) on dialysis (8) Debility Assessment/Plan FFP and vitamin K check INR in am antitussives check sputum IV abx HD by nephrology sliding scale diabetic diet titrate fio2 to sat of 92% Subjective ROS Limited/Unobtainable: No Interval Events: still has hemoptysis Constitutional: Reports: no symptoms HEENT: Repors: no symptoms Respiratory: Reports: no symptoms Allergies: Coded Allergies: BANANA (Verified Allergy, Severe, 08/12/18) GIL (Verified Allergy, Severe, 08/12/18) CARROT (Verified Allergy, Severe, 08/12/18) Dairy (Verified Allergy, Severe, 08/12/18) GRAPE (Verified Allergy, Severe, 08/12/18) Pork (Verified Allergy, Severe, 08/12/18) Potato (Verified Allergy, Severe, 08/12/18) Objective Last 24 Hour Vital Signs Date Time Temp Pulse Resp B/P (MAP) Pulse Ox O2 Delivery O2 Flow Rate FiO2 08/13/18 08:00 97.0 89 20 135/69 (91) 98 97.0 08/13/18 07:58 91 18 98 Nasal Cannula 2.0 08/13/18 07:51 93 Nasal Cannula 2.0 08/13/18 07:51 86 18 93 Nasal Cannula 2.0 28 08/13/18 07:51 Nasal Cannula 2.0 28 08/13/18 07:51 28 08/13/18 06:57 97.8 08/13/18 06:26 97.8 08/13/18 05:45 162/74 08/13/18 04:00 Nasal Cannula 2.0 08/13/18 04:00 96.8 98 22 156/80 (105) 98 96.8 08/13/18 03:53 95 08/13/18 03:20 97 20 97 Nasal Cannula 2.0 28 08/13/18 03:19 94 18 96 Nasal Cannula 2.0 28 08/13/18 00:00 Nasal Cannula 2.0 08/13/18 00:00 97.5 92 17 156/80 (105) 98 97.5 08/12/18 23:30 90 08/12/18 23:10 90 20 96 Nasal Cannula 2.0 28 08/12/18 23:09 87 18 92 Nasal Cannula 2.0 28 08/12/18 22:09 155/62 08/12/18 20:49 96 158/66 08/12/18 20:00 97.8 96 20 158/66 (96) 95 97.8 08/12/18 20:00 94 20 97 Nasal Cannula 2.0 28 08/12/18 20:00 96 08/12/18 20:00 Nasal Cannula 2.0 08/12/18 19:50 90 18 93 Nasal Cannula 2.0 28 08/12/18 19:30 92 Nasal Cannula 2.0 28 08/12/18 19:30 Nasal Cannula 2.0 28 08/12/18 16:00 Nasal Cannula 2.0 08/12/18 16:00 96 08/12/18 15:57 97.9 94 20 152/63 (92) 95 97.9 08/12/18 15:12 28 08/12/18 15:12 88 18 94 Nasal Cannula 2.0 28 08/12/18 15:04 150/70 08/12/18 14:21 Nasal Cannula 2.0 08/12/18 13:40 100 08/12/18 13:40 96.6 95 20 150/70 (96) 90 96.6 08/12/18 13:30 98.1 22 130/67 100 Nasal Cannula 3.0 32 98.1 Intake and Output 08/12/18 08/13/18 19:00 07:00 Intake Total 430.000 ml 155 ml Output Total 150 ml Balance 280.000 ml 155 ml Intake Oral 100 ml 100 ml IV Total 330.000 ml 55 ml Output Urine Total 150 ml General Appearance: cachetic HEENT: normocephalic, atraumatic Respiratory/Chest: chest wall non-tender, lungs clear Cardiovascular: normal peripheral pulses, normal rate Abdomen: normal bowel sounds, soft, non tender Genitourinary: normal external genitalia Extremities: no cyanosis 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 Lymphatic: no neck adenopathy Microbiology Date/Time Source Procedure Growth Status 08/12/18 15:05 Sputum Expectorated Gram Stain Pending Resulted 08/12/18 15:05 Sputum Expectorated Sputum Culture - Preliminary NORMAL UPPER RESPIRATORY TOÑO PRESENT Resulted 08/12/18 08:55 Nasal Nares Influenza Types A,B Antigen (JOSEFA) - Final Complete Laboratory Tests 08/13/18 04:30: White Blood Count 9.1, Red Blood Count 2.90L, Hemoglobin 10.2L, Hematocrit 30.7L , Mean Corpuscular Volume 106H, Mean Corpuscular Hemoglobin 35.2H, Mean Corpuscular Hemoglobin Concent 33.3, Red Cell Distribution Width 13.4, Platelet Count 167, Mean Platelet Volume 7.2, Neutrophils (%) (Auto) 83.6H, Lymphocytes ( %) (Auto) 6.5L, Monocytes (%) (Auto) 8.1, Eosinophils (%) (Auto) 0.8, Basophils (%) (Auto) 1.0, Prothrombin Time 74.3H, Prothromb Time International Ratio 7.9*H , Sodium Level 137, Potassium Level 5.2H, Chloride Level 98, Carbon Dioxide Level 25, Anion Gap 14, Blood Urea Nitrogen 55H, Creatinine 6.9H, Estimat Glomerular Filtration Rate , Glucose Level 104, Hemoglobin A1c 5.4, Calcium Level 8.5, Phosphorus Level 5.8H, Magnesium Level 2.0, Iron Level 30L, Total Iron Binding Capacity 141L, Percent Iron Saturation 21, Unsaturated Iron Binding 111L, Ferritin 1070H, Total Bilirubin 0.8, Gamma Glutamyl Transpeptidase 97H, Aspartate Amino Transf (AST/SGOT) 18, Alanine Aminotransferase (ALT/SGPT) 23, Alkaline Phosphatase 134H, Troponin I 0.221H, Pro-B-Type Natriuretic Peptide > 97024K, Total Protein 6.8, Albumin 2.7L, Globulin 4.1, Albumin/Globulin Ratio 0.7L, Triglycerides Level 119, Cholesterol Level 168, LDL Cholesterol 101H, HDL Cholesterol 33L, Cholesterol/HDL Ratio 5.1H , Vitamin B12 Level > 2000H, Folate 13.4, Random Vancomycin Level 13.9 Current Medications Medications (Trade) Dose Ordered Sig/Kris Route PRN Reason Start Time Stop Time Status Last Admin Dose Admin Acetaminophen (Tylenol) 650 mg Q4H PRN ORAL pain and Temp of 100 F 08/12/18 13:00 09/11/18 12:59 08/13/18 06:26 Albuterol Sulfate (Proventil) 2.5 mg Q4HRT HHN 08/12/18 15:00 08/17/18 14:59 08/13/18 07:51 Carvedilol (Coreg) 12.5 mg EVERY 12 HOURS ORAL 08/12/18 21:00 09/11/18 20:59 08/12/18 20:49 Chlorhexidine Gluconate (Anni-Hex 2%) 1 applic DAILY@2000 TOPIC 08/12/18 20:00 09/11/18 19:59 Docusate Sodium (Colace) 100 mg THREE TIMES A DAY ORAL 08/12/18 13:00 09/11/18 12:59 08/12/18 17:38 Epoetin Issa (Procrit (for ESRD on dialysis)) 7,000 units SUN-SUN-SUN SUBQ 08/12/18 21:00 09/11/18 20:59 08/12/18 20:55 Hydralazine HCl (Apresoline) 25 mg Q8HR ORAL 08/12/18 14:00 09/11/18 13:59 08/13/18 05:45 Meclizine HCl (Antivert) 12.5 mg TIDPRN PRN ORAL dizziness 08/12/18 13:00 09/11/18 12:59 Mirtazapine (Remeron) 15 mg BEDTIME ORAL 08/12/18 21:00 09/11/18 20:59 08/12/18 20:50 Ondansetron HCl (Zofran) 4 mg Q6H PRN IVP Nausea & Vomiting 08/12/18 13:15 09/11/18 13:14 Pantoprazole (Protonix) 40 mg EVERY 12 HOURS ORAL 08/12/18 21:00 09/11/18 20:59 08/12/18 20:50 Piperacillin Sod/ Tazobactam Sod 2.25 gm/Dextrose 55 ml @ 110 mls/hr Q8H IVPB 08/12/18 18:00 08/19/18 17:59 08/13/18 01:33 Tamsulosin HCl (Flomax) 0.4 mg QHS ORAL 08/12/18 21:00 09/11/18 20:59 08/12/18 20:50 Trazodone HCl (Desyrel) 50 mg QHS ORAL 08/12/18 21:00 09/11/18 20:59 08/12/18 20:49 Vancomycin HCl (Vanco rx to dose) 1 ea DAILY PRN MISC Per rx protocol 08/12/18 14:15 09/11/18 14:14 Darius Watson MD Aug 13, 2018 09:39
[2018-08-13] MEDS ORDERED: Phytonadione 10 MG in D5W 55 ML IVPB SCH (11:00)
[2018-08-13 12:00] VITALS: BP 125/55
--- NOTE | 2018-08-13 14:15 | Cardiology Report ---
APPROVED REPORT EXAM: Two-dimensional and M-mode echocardiogram with Doppler and color Doppler. INDICATION Congestive Heart Failure M-Mode DIMENSIONS IVSd2.0 (0.7-1.1cm)Left Atrium (MM)4.0 (1.6-4.0cm) LVDd5.1 (3.5-5.6cm)Aortic Root3.6 (2.0-3.7cm) PWd1.7 (0.7-1.1cm)Aortic Cusp Exc.1.8 (1.5-2.0cm) LVDs4.3 (2.5-4.0cm) PWs1.8 cm Normal left ventricular chamber size. Hypokinesis of mid to distal lateral and apical lateral nicole increases lateral apical wall echos clinical correlation recommneded thrombus cannot be excluded Left ventricular ejection fraction estimated to be 45-50 %. Moderate left ventricular hypertrophy. Large circumferential pericardial effusion no evidence for diastolic RV free wall collapse but ra collpase suggesive of early tamponad physiology All other cardiac chamber sizes are within normal limits. Mild focal aortic valve sclerosis with adequate cusp excursion. Mildly thickened mitral valve leaflets with normal excursion. Mild mitral annulus and aortic root calcification. Normal pulmonic valve structure. Normal tricuspid valve structure. IVC upper limit of normal 2.0 cm with decreased physiological collapse, suggestive of mildy increased RA pressure. Overall echo changes suggestive of early tamponade physiology, however not appear tachycardic evidence of respiratory variation across MV/TV not severe enough to be diagnostic ot tamponade A color flow and spectral Doppler study was performed and revealed: Mild aortic insufficiency. Moderate mitral regurgitation. Mitral inflow velocities non diagnositc Mild tricuspid regurgitation. Tricuspid systolic velocities suggests peak right ventricular systolic pressure of 45 mmHg, consistent with moderate pulmonary hypertension. Mild pulmonic regurgitation present.
--- NOTE | 2018-08-13 15:27 | Cardiology Report ---
APPROVED REPORT EKG Measurement Heart [id number] Atrial fibrillation Septal infarct, age undetermined Abnormal ECG
[2018-08-13 16:00] VITALS: BP 131/57
--- NOTE | 2018-08-13 16:30 | General Progress Note ---
Assessment/Plan Problem List: (1) Aspiration pneumonia ICD Codes: J69.0 - Pneumonitis due to inhalation of food and vomit SNOMED: 345730628 (2) Hemoptysis ICD Codes: R04.2 - Hemoptysis SNOMED: 43809549 (3) ESRD (end stage renal disease) on dialysis ICD Codes: N18.6 - End stage renal failure on dialysis; Z99.2 - Dependence on renal dialysis SNOMED: 080849443 (4) Hypertension ICD Codes: I10 - Hypertension SNOMED: 13054286 Status Narrative The patient is an 83-year-old [place] male with end-stage renal disease, who presents with fever, chills, cough, shortness of breath, and hemoptysis. INR is elevated. He has history of paroxysmal atrial fibrillation. Most likely, the patient has pneumonia. Assessment/Plan HD today FFP and Vit K 2 D echo Cardiology eval Subjective ROS Limited/Unobtainable: No Constitutional: Reports: malaise, weakness Allergies: Coded Allergies: BANANA (Verified Allergy, Severe, 08/12/18) GIL (Verified Allergy, Severe, 08/12/18) CARROT (Verified Allergy, Severe, 08/12/18) Dairy (Verified Allergy, Severe, 08/12/18) GRAPE (Verified Allergy, Severe, 08/12/18) Pork (Verified Allergy, Severe, 08/12/18) Potato (Verified Allergy, Severe, 08/12/18) Objective Last 24 Hour Vital Signs Date Time Temp Pulse Resp B/P (MAP) Pulse Ox O2 Delivery O2 Flow Rate FiO2 08/13/18 15:48 Nasal Cannula 2.0 28 08/13/18 15:48 Nasal Cannula 2.0 28 08/13/18 15:22 Nasal Cannula 2.0 08/13/18 13:31 131/57 08/13/18 12:00 97.8 84 21 125/55 (78) 97 97.8 08/13/18 12:00 84 08/13/18 12:00 Nasal Cannula 2.0 08/13/18 11:35 90 18 98 Nasal Cannula 2.0 28 08/13/18 11:25 90 20 94 Nasal Cannula 2.0 28 08/13/18 11:25 28 08/13/18 09:33 89 135/69 08/13/18 08:00 97.0 89 20 135/69 (91) 98 97.0 08/13/18 08:00 Nasal Cannula 2.0 08/13/18 07:58 91 18 98 Nasal Cannula 2.0 28 08/13/18 07:51 93 Nasal Cannula 2.0 28 08/13/18 07:51 86 18 93 Nasal Cannula 2.0 28 08/13/18 07:51 Nasal Cannula 2.0 28 08/13/18 07:51 28 08/13/18 07:33 89 08/13/18 06:57 97.8 08/13/18 06:26 97.8 08/13/18 05:45 162/74 08/13/18 04:00 Nasal Cannula 2.0 08/13/18 04:00 96.8 98 22 156/80 (105) 98 96.8 08/13/18 03:53 95 08/13/18 03:20 97 20 97 Nasal Cannula 2.0 28 08/13/18 03:19 94 18 96 Nasal Cannula 2.0 28 08/13/18 00:00 Nasal Cannula 2.0 08/13/18 00:00 97.5 92 17 156/80 (105) 98 97.5 08/12/18 23:30 90 08/12/18 23:10 90 20 96 Nasal Cannula 2.0 28 08/12/18 23:09 87 18 92 Nasal Cannula 2.0 28 08/12/18 22:09 155/62 08/12/18 20:49 96 158/66 08/12/18 20:00 97.8 96 20 158/66 (96) 95 97.8 08/12/18 20:00 94 20 97 Nasal Cannula 2.0 28 08/12/18 20:00 96 08/12/18 20:00 Nasal Cannula 2.0 08/12/18 19:50 90 18 93 Nasal Cannula 2.0 28 08/12/18 19:30 92 Nasal Cannula 2.0 28 08/12/18 19:30 Nasal Cannula 2.0 28 Intake and Output 08/12/18 08/13/18 19:00 07:00 Intake Total 430.000 ml 155 ml Output Total 150 ml Balance 280.000 ml 155 ml Intake Oral 100 ml 100 ml IV Total 330.000 ml 55 ml Output Urine Total 150 ml Laboratory Tests 08/13/18 04:30: White Blood Count 9.1, Red Blood Count 2.90L, Hemoglobin 10.2L, Hematocrit 30.7L , Mean Corpuscular Volume 106H, Mean Corpuscular Hemoglobin 35.2H, Mean Corpuscular Hemoglobin Concent 33.3, Red Cell Distribution Width 13.4, Platelet Count 167, Mean Platelet Volume 7.2, Neutrophils (%) (Auto) 83.6H, Lymphocytes ( %) (Auto) 6.5L, Monocytes (%) (Auto) 8.1, Eosinophils (%) (Auto) 0.8, Basophils (%) (Auto) 1.0, Prothrombin Time 74.3H, Prothromb Time International Ratio 7.9*H , Sodium Level 137, Potassium Level 5.2H, Chloride Level 98, Carbon Dioxide Level 25, Anion Gap 14, Blood Urea Nitrogen 55H, Creatinine 6.9H, Estimat Glomerular Filtration Rate , Glucose Level 104, Hemoglobin A1c 5.4, Calcium Level 8.5, Phosphorus Level 5.8H, Magnesium Level 2.0, Iron Level 30L, Total Iron Binding Capacity 141L, Percent Iron Saturation 21, Unsaturated Iron Binding 111L, Ferritin 1070H, Total Bilirubin 0.8, Gamma Glutamyl Transpeptidase 97H, Aspartate Amino Transf (AST/SGOT) 18, Alanine Aminotransferase (ALT/SGPT) 23, Alkaline Phosphatase 134H, Troponin I 0.221H, Pro-B-Type Natriuretic Peptide > 04560M, Total Protein 6.8, Albumin 2.7L, Globulin 4.1, Albumin/Globulin Ratio 0.7L, Triglycerides Level 119, Cholesterol Level 168, LDL Cholesterol 101H, HDL Cholesterol 33L, Cholesterol/HDL Ratio 5.1H , Vitamin B12 Level > 2000H, Folate 13.4, Random Vancomycin Level 13.9 Height (Feet): 5 Height (Inches): 8.00 Weight (Pounds): 140 General Appearance: no apparent distress Cardiovascular: normal rate Respiratory/Chest: decreased breath sounds Abdomen: soft Ady Gómez MD Aug 13, 2018 16:30
--- NOTE | 2018-08-13 16:30 | Infectious Diseases Prog Note ---
Assessment/Plan Problems: (1) HCAP (healthcare-associated pneumonia) Assessment & Plan: continue zosyn and vancomycin empirically for now since HD patient, sputum culture grew normal respiratory kodak , await swallow eval . (2) Acute respiratory failure Assessment & Plan: due to the above, continue oxygen and inhalers , monitor CXR (3) Coagulopathy Assessment & Plan: hold anticoagulation, monitor INR, give FFP , and vit K as needed (4) Hemoptysis Assessment & Plan: due to the above , hold anticoagulation , monitor H/H , transfuse blood as needed, monitor CXR . (5) ESRD (end stage renal disease) on dialysis Assessment & Plan: on HD , renal is following Subjective Constitutional: Reports: no symptoms HEENT: Reports: no symptoms Respiratory: Reports: productive cough, other - wheezing and hemoptysis Breasts: Reports: no symptoms Cardiovascular: Reports: no symptoms Gastrointestinal/Abdominal: Reports: no symptoms Genitourinary: Reports: no symptoms Neurologic: Reports: no symptoms Psychiatric: Reports: no symptoms Skin: Reports: no symptoms Endocrine: Reports: no symptoms Hematologic: Reports: no symptoms Musculoskeletal: Reports: no symptoms Allergies: Coded Allergies: BANANA (Verified Allergy, Severe, 08/12/18) GIL (Verified Allergy, Severe, 08/12/18) CARROT (Verified Allergy, Severe, 08/12/18) Dairy (Verified Allergy, Severe, 08/12/18) GRAPE (Verified Allergy, Severe, 08/12/18) Pork (Verified Allergy, Severe, 08/12/18) Potato (Verified Allergy, Severe, 08/12/18) Objective Vital Signs Last 24 Hour Vital Signs Date Time Temp Pulse Resp B/P (MAP) Pulse Ox O2 Delivery O2 Flow Rate FiO2 08/13/18 15:48 Nasal Cannula 2.0 28 08/13/18 15:48 Nasal Cannula 2.0 28 08/13/18 15:22 Nasal Cannula 2.0 08/13/18 13:31 131/57 08/13/18 12:00 97.8 84 21 125/55 (78) 97 97.8 08/13/18 12:00 84 08/13/18 12:00 Nasal Cannula 2.0 08/13/18 11:35 90 18 98 Nasal Cannula 2.0 28 08/13/18 11:25 90 20 94 Nasal Cannula 2.0 28 08/13/18 11:25 28 08/13/18 09:33 89 135/69 08/13/18 08:00 97.0 89 20 135/69 (91) 98 97.0 08/13/18 08:00 Nasal Cannula 2.0 08/13/18 07:58 91 18 98 Nasal Cannula 2.0 28 08/13/18 07:51 93 Nasal Cannula 2.0 08/13/18 07:51 86 18 93 Nasal Cannula 2.0 08/13/18 07:51 Nasal Cannula 2.0 08/13/18 07:51 28 08/13/18 07:33 89 08/13/18 06:57 97.8 08/13/18 06:26 97.8 08/13/18 05:45 162/74 08/13/18 04:00 Nasal Cannula 2.0 08/13/18 04:00 96.8 98 22 156/80 (105) 98 96.8 08/13/18 03:53 95 08/13/18 03:20 97 20 97 Nasal Cannula 2.0 08/13/18 03:19 94 18 96 Nasal Cannula 2.0 08/13/18 00:00 Nasal Cannula 2.0 08/13/18 00:00 97.5 92 17 156/80 (105) 98 97.5 08/12/18 23:30 90 08/12/18 23:10 90 20 96 Nasal Cannula 2.0 08/12/18 23:09 87 18 92 Nasal Cannula 2.0 08/12/18 22:09 155/62 08/12/18 20:49 96 158/66 08/12/18 20:00 97.8 96 20 158/66 (96) 95 97.8 08/12/18 20:00 94 20 97 Nasal Cannula 2.0 08/12/18 20:00 96 08/12/18 20:00 Nasal Cannula 2.0 08/12/18 19:50 90 18 93 Nasal Cannula 2.0 08/12/18 19:30 92 Nasal Cannula 2.0 08/12/18 19:30 Nasal Cannula 2.0 28 Height (Feet): 5 Height (Inches): 8.00 Weight (Pounds): 140 General Appearance: WD/WN, no acute distress HEENT: normocephalic, atraumatic, anicteric, mucous membranes moist, PERRL Respiratory/Chest: chest wall non-tender, no respiratory distress, no accessory muscle use, decreased breath sounds, expiratory wheezing Cardiovascular: normal peripheral pulses, normal rate, regular rhythm, no gallop/murmur, no JVD Abdomen: normal bowel sounds, soft, non tender, no organomegaly, non distended , no mass, no scars Extremities: no cyanosis, no clubbing Skin: no rash, no lesions, no ulcers Neurologic/Psychiatric: alert, oriented x 3, responsive Lymphatic: no neck adenopathy, no groin adenopathy Musculoskeletal: normal muscle bulk, no effusion Microbiology Date/Time Source Procedure Growth Status 08/12/18 15:05 Sputum Expectorated Gram Stain - Final Resulted 08/12/18 15:05 Sputum Expectorated Sputum Culture - Preliminary NORMAL UPPER RESPIRATORY [place] PRESENT Resulted 08/12/18 08:55 Nasal Nares Influenza Types A,B Antigen (JOSEFA) - Final Complete Laboratory Tests Test 08/13/18 04:30 White Blood Count 9.1 K/UL (4.8-10.8) Red Blood Count 2.90 M/UL (4.70-6.10) L Hemoglobin 10.2 G/DL (14.2-18.0) L Hematocrit 30.7 % (42.0-52.0) L Mean Corpuscular Volume 106 FL (80-99) H Mean Corpuscular Hemoglobin 35.2 PG (27.0-31.0) H Mean Corpuscular Hemoglobin Concent 33.3 G/DL (32.0-36.0) Red Cell Distribution Width 13.4 % (11.6-14.8) Platelet Count 167 K/UL (150-450) Mean Platelet Volume 7.2 FL (6.5-10.1) Neutrophils (%) (Auto) 83.6 % (45.0-75.0) H Lymphocytes (%) (Auto) 6.5 % (20.0-45.0) L Monocytes (%) (Auto) 8.1 % (1.0-10.0) Eosinophils (%) (Auto) 0.8 % (0.0-3.0) Basophils (%) (Auto) 1.0 % (0.0-2.0) Prothrombin Time 74.3 SEC (9.30-11.50) H Prothromb Time International Ratio 7.9 (0.9-1.1) *H Sodium Level 137 MMOL/L (136-145) Potassium Level 5.2 MMOL/L (3.5-5.1) H Chloride Level 98 MMOL/L (98-107) Carbon Dioxide Level 25 MMOL/L (21-32) Anion Gap 14 mmol/L (5-15) Blood Urea Nitrogen 55 mg/dL (7-18) H Creatinine 6.9 MG/DL (0.55-1.30) H Estimat Glomerular Filtration Rate mL/min (>60) Glucose Level 104 MG/DL (74-106) Hemoglobin A1c 5.4 % (4.3-6.0) Calcium Level 8.5 MG/DL (8.5-10.1) Phosphorus Level 5.8 MG/DL (2.5-4.9) H Magnesium Level 2.0 MG/DL (1.8-2.4) Iron Level 30 ug/dL (50-175) L Total Iron Binding Capacity 141 ug/dL (250-450) L Percent Iron Saturation 21 % (15-50) Unsaturated Iron Binding 111 ug/dL (112-346) L Ferritin 1070 NG/ML (8-388) H Total Bilirubin 0.8 MG/DL (0.2-1.0) Gamma Glutamyl Transpeptidase 97 U/L (5-85) H Aspartate Amino Transf (AST/SGOT) 18 U/L (15-37) Alanine Aminotransferase (ALT/SGPT) 23 U/L (12-78) Alkaline Phosphatase 134 U/L (46-116) H Troponin I 0.221 ng/mL (0.000-0.056) Pro-B-Type Natriuretic Peptide > 29921 pg/mL (0-125) H Total Protein 6.8 G/DL (6.4-8.2) Albumin 2.7 G/DL (3.4-5.0) L Globulin 4.1 g/dL Albumin/Globulin Ratio 0.7 (1.0-2.7) L Triglycerides Level 119 MG/DL (30-150) Cholesterol Level 168 MG/DL (< 200) LDL Cholesterol 101 mg/dL (<100) H HDL Cholesterol 33 MG/DL (40-60) L Cholesterol/HDL Ratio 5.1 (3.3-4.4) H Vitamin B12 Level > 2000 PG/ML (193-986) H Folate 13.4 NG/ML (8.6-58.9) Random Vancomycin Level 13.9 ug/mL Current Medications Medications (Trade) Dose Ordered Sig/Kris Route PRN Reason Start Time Stop Time Status Last Admin Dose Admin Acetaminophen (Tylenol) 650 mg Q4H PRN ORAL pain and Temp of 100 F 08/12/18 13:00 09/11/18 12:59 08/13/18 06:26 Albuterol Sulfate (Proventil) 2.5 mg Q4HRT HHN 08/12/18 15:00 08/17/18 14:59 08/13/18 11:25 Carvedilol (Coreg) 12.5 mg EVERY 12 HOURS ORAL 08/12/18 21:00 09/11/18 20:59 08/13/18 09:33 Chlorhexidine Gluconate (Anni-Hex 2%) 1 applic DAILY@2000 TOPIC 08/12/18 20:00 09/11/18 19:59 Docusate Sodium (Colace) 100 mg THREE TIMES A DAY ORAL 08/12/18 13:00 09/11/18 12:59 08/13/18 13:31 Epoetin Issa (Procrit (for ESRD on dialysis)) 7,000 units SUN-SUN-SUN SUBQ 08/12/18 21:00 09/11/18 20:59 08/12/18 20:55 Hydralazine HCl (Apresoline) 25 mg Q8HR ORAL 08/12/18 14:00 09/11/18 13:59 08/13/18 13:31 Meclizine HCl (Antivert) 12.5 mg TIDPRN PRN ORAL dizziness 08/12/18 13:00 09/11/18 12:59 Mirtazapine (Remeron) 15 mg BEDTIME ORAL 08/12/18 21:00 09/11/18 20:59 08/12/18 20:50 Ondansetron HCl (Zofran) 4 mg Q6H PRN IVP Nausea & Vomiting 08/12/18 13:15 09/11/18 13:14 Pantoprazole (Protonix) 40 mg EVERY 12 HOURS ORAL 08/12/18 21:00 09/11/18 20:59 08/13/18 09:33 Piperacillin Sod/ Tazobactam Sod 2.25 gm/Dextrose 55 ml @ 110 mls/hr Q8H IVPB 08/12/18 18:00 08/19/18 17:59 08/13/18 09:34 Tamsulosin HCl (Flomax) 0.4 mg QHS ORAL 08/12/18 21:00 09/11/18 20:59 08/12/18 20:50 Trazodone HCl (Desyrel) 50 mg QHS ORAL 08/12/18 21:00 09/11/18 20:59 08/12/18 20:49 Vancomycin HCl (Vanco rx to dose) 1 ea DAILY PRN MISC Per rx protocol 08/12/18 14:15 09/11/18 14:14 Donte Null M.D. Aug 13, 2018 16:30
--- NOTE | 2018-08-13 16:58 | Cardiology Progress Note ---
Assessment/Plan Assessment/Plan repeat cardiac enzyme serially as well as ekg no antiplt agent in light fo profound coagulopathy correction of coagl per dr french no clinical evidence for tamponade may need surveillance echoes in future old echo reviewed the pericardial effusion and the ra collapse and the increased apical lateral echo ARE NOT NEW were present 12/2016 echo , however volume of effusion has increased rxn for possible pulm infection will follow thank yor [id number] Objective Last 24 Hour Vital Signs Date Time Temp Pulse Resp B/P (MAP) Pulse Ox O2 Delivery O2 Flow Rate FiO2 08/13/18 15:48 Nasal Cannula 2.0 28 08/13/18 15:48 Nasal Cannula 2.0 28 08/13/18 15:22 Nasal Cannula 2.0 08/13/18 13:31 131/57 08/13/18 12:00 97.8 84 21 125/55 (78) 97 97.8 08/13/18 12:00 84 08/13/18 12:00 Nasal Cannula 2.0 08/13/18 11:35 90 18 98 Nasal Cannula 2.0 08/13/18 11:25 90 20 94 Nasal Cannula 2.0 28 08/13/18 11:25 28 08/13/18 09:33 89 135/69 08/13/18 08:00 97.0 89 20 135/69 (91) 98 97.0 08/13/18 08:00 Nasal Cannula 2.0 08/13/18 07:58 91 18 98 Nasal Cannula 2.0 08/13/18 07:51 93 Nasal Cannula 2.0 08/13/18 07:51 86 18 93 Nasal Cannula 2.0 08/13/18 07:51 Nasal Cannula 2.0 28 08/13/18 07:51 28 08/13/18 07:33 89 08/13/18 06:57 97.8 08/13/18 06:26 97.8 08/13/18 05:45 162/74 08/13/18 04:00 Nasal Cannula 2.0 08/13/18 04:00 96.8 98 22 156/80 (105) 98 96.8 08/13/18 03:53 95 08/13/18 03:20 97 20 97 Nasal Cannula 2.0 08/13/18 03:19 94 18 96 Nasal Cannula 2.0 28 08/13/18 00:00 Nasal Cannula 2.0 08/13/18 00:00 97.5 92 17 156/80 (105) 98 97.5 08/12/18 23:30 90 08/12/18 23:10 90 20 96 Nasal Cannula 2.0 28 08/12/18 23:09 87 18 92 Nasal Cannula 2.0 28 08/12/18 22:09 155/62 08/12/18 20:49 96 158/66 08/12/18 20:00 97.8 96 20 158/66 (96) 95 97.8 08/12/18 20:00 94 20 97 Nasal Cannula 2.0 28 08/12/18 20:00 96 08/12/18 20:00 Nasal Cannula 2.0 08/12/18 19:50 90 18 93 Nasal Cannula 2.0 28 08/12/18 19:30 92 Nasal Cannula 2.0 28 08/12/18 19:30 Nasal Cannula 2.0 28 Intake and Output 08/12/18 08/13/18 19:00 07:00 Intake Total 430.000 ml 155 ml Output Total 150 ml Balance 280.000 ml 155 ml Intake Oral 100 ml 100 ml IV Total 330.000 ml 55 ml Output Urine Total 150 ml Laboratory Tests Test 08/13/18 04:30 08/13/18 05:30 White Blood Count 9.1 K/UL (4.8-10.8) Red Blood Count 2.90 M/UL (4.70-6.10) L Hemoglobin 10.2 G/DL (14.2-18.0) L Hematocrit 30.7 % (42.0-52.0) L Mean Corpuscular Volume 106 FL (80-99) H Mean Corpuscular Hemoglobin 35.2 PG (27.0-31.0) H Mean Corpuscular Hemoglobin Concent 33.3 G/DL (32.0-36.0) Red Cell Distribution Width 13.4 % (11.6-14.8) Platelet Count 167 K/UL (150-450) Mean Platelet Volume 7.2 FL (6.5-10.1) Neutrophils (%) (Auto) 83.6 % (45.0-75.0) H Lymphocytes (%) (Auto) 6.5 % (20.0-45.0) L Monocytes (%) (Auto) 8.1 % (1.0-10.0) Eosinophils (%) (Auto) 0.8 % (0.0-3.0) Basophils (%) (Auto) 1.0 % (0.0-2.0) Prothrombin Time 74.3 SEC (9.30-11.50) H Prothromb Time International Ratio 7.9 (0.9-1.1) *H Sodium Level 137 MMOL/L (136-145) Potassium Level 5.2 MMOL/L (3.5-5.1) H Chloride Level 98 MMOL/L (98-107) Carbon Dioxide Level 25 MMOL/L (21-32) Anion Gap 14 mmol/L (5-15) Blood Urea Nitrogen 55 mg/dL (7-18) H Creatinine 6.9 MG/DL (0.55-1.30) H Estimat Glomerular Filtration Rate mL/min (>60) Glucose Level 104 MG/DL (74-106) Hemoglobin A1c 5.4 % (4.3-6.0) Calcium Level 8.5 MG/DL (8.5-10.1) Phosphorus Level 5.8 MG/DL (2.5-4.9) H Magnesium Level 2.0 MG/DL (1.8-2.4) Iron Level 30 ug/dL (50-175) L Total Iron Binding Capacity 141 ug/dL (250-450) L Percent Iron Saturation 21 % (15-50) Unsaturated Iron Binding 111 ug/dL (112-346) L Ferritin 1070 NG/ML (8-388) H Total Bilirubin 0.8 MG/DL (0.2-1.0) Gamma Glutamyl Transpeptidase 97 U/L (5-85) H Aspartate Amino Transf (AST/SGOT) 18 U/L (15-37) Alanine Aminotransferase (ALT/SGPT) 23 U/L (12-78) Alkaline Phosphatase 134 U/L (46-116) H Troponin I 0.221 ng/mL (0.000-0.056) Pro-B-Type Natriuretic Peptide > 72918 pg/mL (0-125) H Total Protein 6.8 G/DL (6.4-8.2) Albumin 2.7 G/DL (3.4-5.0) L Globulin 4.1 g/dL Albumin/Globulin Ratio 0.7 (1.0-2.7) L Triglycerides Level 119 MG/DL (30-150) Cholesterol Level 168 MG/DL (< 200) LDL Cholesterol 101 mg/dL (<100) H HDL Cholesterol 33 MG/DL (40-60) L Cholesterol/HDL Ratio 5.1 (3.3-4.4) H Vitamin B12 Level > 2000 PG/ML (193-986) H Folate 13.4 NG/ML (8.6-58.9) Random Vancomycin Level 13.9 ug/mL C-Reactive Protein, Quantitative Pending Microbiology Date/Time Source Procedure Growth Status 08/12/18 15:05 Sputum Expectorated Gram Stain - Final Resulted 08/12/18 15:05 Sputum Expectorated Sputum Culture - Preliminary NORMAL UPPER RESPIRATORY TOÑO PRESENT Resulted 08/12/18 08:55 Nasal Nares Influenza Types A,B Antigen (JOSEFA) - Final Complete Marko Thakkar MD Aug 13, 2018 16:58
[2018-08-13 20:00] VITALS: BP 153/71
[2018-08-13] MEDS: Dyna-Hex 2% Top Sol 2oz TOPIC SCH ×2 (20:02→20:30)
[2018-08-13] MEDS: Metoprolol Tartrate 12.5mg TAB ORAL SCH (20:02)
[2018-08-13] MEDS: Tamsulosin 0.4mg cap ORAL SCH (20:55)
[2018-08-13] MEDS: TraZODone 50mg tab ORAL SCH (20:56)
[2018-08-14] VITALS: BP 144/66
--- NOTE | 2018-08-14 01:00 | Consultation ---
DATE OF CONSULTATION: 08/13/2018 NOTE: INCOMPLETE DICTATION CONSULTING PHYSICIAN: Marko Thakkar M.D. REFERRING PHYSICIAN: Ady Gómez M.D. REASON FOR CONSULTATION: Shortness of breath and pericardial effusion. HISTORY OF PRESENT ILLNESS: This is an elderly gentleman who is known to me from prior evaluation, although I have not seen him since December 2016. Apparently, he was brought to the emergency room. Marko Thakkar M.D. DR: MERRILL JOB#: [id number] CC:
[2018-08-14] MEDS: Piperacillin/Tazobactam 2.25 GM in D5W 55 ML IVPB SCH ×3 (01:41→18:00)
[2018-08-14] MEDS: Albuterol ud Inhalation HHN SCH ×6 (03:14→23:08)
[2018-08-14 04:00] VITALS: BP 152/71
[2018-08-14 04:24] LABS: BASOPHILS % (AUTO) 0.6 % (0.0-2.0); EOSINOPHILS % (AUTO) 0.1 % (0.0-3.0); HEMATOCRIT 26.5 % (42.0-52.0); HEMOGLOBIN 8.9 G/DL (14.2-18.0); LYMPHOCYTES % (AUTO) 7.7 % (20.0-45.0); MEAN CORPUSCULAR VOLUME 105 FL (80-99); MONOCYTES % (AUTO) 8.1 % (1.0-10.0); NEUTROPHILS % (AUTO) 83.5 % (45.0-75.0); PLATELET COUNT 140 K/UL (150-450); RED BLOOD COUNT 2.53 M/UL (4.70-6.10); WHITE BLOOD COUNT 9.3 K/UL (4.8-10.8)
[2018-08-14 04:46] LABS: INR 1.2 (0.9-1.1)
[2018-08-14 05:23] LABS: ALANINE AMINOTRANSFERASE 188 U/L (12-78); ALBUMIN 3.1 G/DL (3.4-5.0); ALBUMIN/GLOBULIN RATIO 0.7 (1.0-2.7); ALKALINE PHOSPHATASE 136 U/L (46-116); ANION GAP 11 mmol/L (5-15); ASPARTATE AMINO TRANSFERASE 239 U/L (15-37); BILIRUBIN,TOTAL 1.3 MG/DL (0.2-1.0); BLOOD UREA NITROGEN 45 mg/dL (7-18); CALCIUM 8.8 MG/DL (8.5-10.1); CARBON DIOXIDE 28 MMOL/L (21-32); CHLORIDE 97 MMOL/L (98-107); CREATININE 5.4 MG/DL (0.55-1.30); PHOSPHORUS 5.7 MG/DL (2.5-4.9); POTASSIUM 4.9 MMOL/L (3.5-5.1); SODIUM 136 MMOL/L (136-145)
[2018-08-14 05:27] LABS: BILIRUBIN,DIRECT 0.4 MG/DL (0.0-0.3)
--- NOTE | 2018-08-14 05:45 | Consultation ---
DATE OF CONSULTATION: 08/13/2018 CARDIOLOGY CONSULTATION CONSULTING PHYSICIAN: Marko Thakkar M.D. REFERRING PHYSICIAN: Ady Gómez M.D. REASON FOR REFERRAL: Pericardial effusion. HISTORY OF PRESENT ILLNESS: This is an elderly gentleman who is brought to the emergency room because of coughing and sputum production for approximately four days, has had some shortness of breath, especially at night. The patient is a dialysis patient. He was due for dialysis, was admitted to the hospital and he is receiving the dialysis at the present time. He has shortness of breath and he does indicate that he has some pain in the chest when he apparently coughs. It is otherwise very difficult to obtain a full history from this gentleman. He is getting dialysis at the present time. He had an echocardiogram today, which showed pericardial effusion. This consultation is requested. PAST MEDICAL HISTORY: According to my own notation from back in 2017 and when I last saw him, he had a history of diastolic failure, systemic hypertension, chronic kidney disease, paroxysmal episodes of atrial fibrillation, bradycardia, secondary sinus node and AV node disease, pulmonary hypertension, status post carotid endarterectomy, status post resection of kidney and partially of the liver and stomach per the patient report, and he does have systemic hypertension. 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 ALLERGIES: No allergies to medications. SOCIAL HISTORY: He does not smoke or drink alcoholic beverages. REVIEW OF SYSTEMS: Really unable to obtain at this time. PHYSICAL EXAMINATION: GENERAL: Shows to be elderly gentleman who is intermittently coughing, at times congested. NECK: Supple. No jugular venous distention. LUNGS: Rhonchi is noted. CARDIAC: Irregularly irregular. Not tachycardic. Not bradycardic. No heaves or thrills noted. ABDOMEN: Soft. Positive bowel sounds. EXTREMITIES: There is no clubbing, cyanosis, or edema. NEUROLOGICAL: He is awake and responsive, sitting up in a chair. LABORATORY AND DIAGNOSTIC DATA: Laboratory values, white count of 9.1, hemoglobin of 10.2, and platelet count of 167,000. Sodium 137, potassium 5.2, chloride 98, bicarbonate 25, BUN 55, creatinine 6.9 and glucose of 104. Calcium is 8.5, phosphorus is 5.8, magnesium is 2.0, iron of 30, TIBC of 141, and 21% saturation. Ferritin of 1070, GGTP of 97, AST and ALT of 18 and 23 respectively, and alkaline phosphatase of 133. Troponin of 0.221 from 4:30 this morning. ProBNP greater than 35,000, albumin 2.7 and total cholesterol 168 with LDL of 101 and HDL of 33. Vitamin B12 greater than 2000 and folic acid of 13.4. First set troponin yesterday was 0.045 and this was at 8:30 yesterday morning and 4:30 this morning, almost 20 hours later, the second troponin was 0.221. Coagulation studies, INR was 6.7 yesterday and now 7.9 today. The patient received fresh frozen plasma and x-rays of the chest showed yesterday interstitial pulmonary edema, reticular , prominent vascularity. The heart was enlarged. Pneumonia of the left lower lobe is not excluded and his EKG shows atrial fibrillation, ventricular response appears to be adequate in the 80s. An echocardiogram performed showed normal LV chamber size, hypokinesis, and mid to distal lateral wall as well as apical wall, increased lateral apical echoes, ejection fraction estimated 45 to 50%, moderate left ventricular hypertrophy, large circumferential pericardial effusion is noted, and no evidence of RV free wall collapse, but RA collapse is noted, suggestive of early tamponade physiology. In direct comparison, the echocardiogram on previous occasion shows a similar pattern of right atrial collapse. Pericardial effusion was smaller at that time in November 2016 as well and increased lateral apical echoes were noted also on the prior echocardiogram as well in direct comparison. Therefore, the only thing that is different may be the volume of the pericardial effusion is present at this time. ASSESSMENT AND PLAN: 1. Coagulopathy. 2. Pericardial effusion, increased in size since 2017. 3. Right atrial collapse, not changed since 2017. 4. Apical lateral increased echo, not changed since 2017. 5. Cough. 6. Mild segmental wall motion abnormality. 7. Questionable chest pain. PLAN: Dr. Gómez, this patient was seen in cardiac consultation. The patient does have some hypokinesis of the lateral wall of the LV. There are no electrocardiographic changes at the present time now. EKG will be repeated, cardiac enzymes will be repeated, and pericardial effusion is not new, coagulopathy is being treated with the use of FFP during dialysis. The patient is receiving active dialysis at the present time. We will follow up on cardiac enzymes and EKG, and we will follow up the wall motion if needed. The patient has been treated by Dr. Watson for pulmonary cotton and I am hesitant to prescribe any antiplatelet agents in light of the fact that he has such a profound coagulopathy at this time and would be on safe to administer any at this time, but certainly after coagulopathy is corrected, we will consider administering antiplatelet agents. His blood pressure is adequate. There is no evidence of pericardial tamponade clinically on examination and again, this pericardial effusion is not new, although the volume of effusion is increased since the prior evaluation. Pericardiocentesis may be necessary at some point in the future, although that is not necessary at this time with degree of coagulopathy that he has at this time. Infectious Disease is following. Marko Thakkar M.D. DR: GENNA JOB#: [id number] CC:
[2018-08-14] MEDS: HydrALAZINE 25mg tab ORAL SCH ×3 (06:08→21:50)
[2018-08-14 08:00] VITALS: BP 153/74
[2018-08-14] MEDS: Docusate 100mg cap ORAL SCH ×3 (10:04→18:00)
[2018-08-14] MEDS: Aspirin Baby 81mg ORAL SCH (10:05)
[2018-08-14] MEDS: Metoprolol Tartrate 12.5mg TAB ORAL SCH (10:11)
--- NOTE | 2018-08-14 11:12 | Pulmonology Progress Note ---
Assessment/Plan Problems: (1) Acute respiratory failure (2) Aspiration pneumonia (3) COPD (chronic obstructive pulmonary disease) (4) Interstitial lung disease (5) Non-compliance with treatment (6) Hypertension (7) ESRD (end stage renal disease) on dialysis (8) Debility Assessment/Plan s/p FFP and vitamin K INR is 1.2 antitussives check sputum IV abx HD by nephrology sliding scale diabetic diet titrate fio2 to sat of 92% cxr in am Subjective ROS Limited/Unobtainable: No Interval Events: awake, on BIPAP Allergies: Coded Allergies: BANANA (Verified Allergy, Severe, 08/12/18) GIL (Verified Allergy, Severe, 08/12/18) CARROT (Verified Allergy, Severe, 08/12/18) Dairy (Verified Allergy, Severe, 08/12/18) GRAPE (Verified Allergy, Severe, 08/12/18) Pork (Verified Allergy, Severe, 08/12/18) Potato (Verified Allergy, Severe, 08/12/18) Objective Last 24 Hour Vital Signs Date Time Temp Pulse Resp B/P (MAP) Pulse Ox O2 Delivery O2 Flow Rate FiO2 08/14/18 10:51 90 31 96 Bi-pap 45 08/14/18 10:45 45 08/14/18 10:44 91 33 98 Bi-pap 45 08/14/18 10:43 91 29 98 Facial 45 08/14/18 10:11 94 153/74 08/14/18 08:50 95 34 97 Facial 45 08/14/18 07:51 95 08/14/18 07:23 98 35 97 Facial 50 08/14/18 07:23 98 31 98 Bi-pap 50 08/14/18 07:21 Bi-pap 40 08/14/18 07:21 93 Bi-pap 40 08/14/18 07:18 50 08/14/18 07:18 101 38 93 Bi-pap 50 08/14/18 06:08 155/75 08/14/18 05:25 98 37 98 Facial 40 08/14/18 04:00 97.0 93 20 152/71 (98) 100 97.0 08/14/18 04:00 91 08/14/18 04:00 40 08/14/18 04:00 Bi-pap 08/14/18 03:26 90 29 98 Bi-pap 40 08/14/18 03:14 90 29 96 Bi-pap 40 08/14/18 03:14 60 08/14/18 02:47 89 29 98 Facial 40 08/14/18 00:58 88 30 99 Facial 50 08/14/18 00:00 99 08/14/18 00:00 Bi-pap 08/14/18 00:00 60 08/14/18 00:00 97.4 91 20 144/66 (92) 100 97.4 08/13/18 22:48 91 31 100 Bi-pap 60 08/13/18 22:37 87 31 100 Bi-pap 60 08/13/18 22:37 60 08/13/18 22:36 91 30 99 Facial 60 08/13/18 22:07 136/68 08/13/18 21:25 105 37 98 Facial 70 08/13/18 20:02 113 153/71 08/13/18 20:00 99 08/13/18 20:00 80 08/13/18 20:00 Bi-pap 08/13/18 20:00 97.3 113 20 153/71 (98) 100 97.3 08/13/18 19:25 103 41 100 Facial 80 08/13/18 19:25 111 20 91 Bi-pap 80 08/13/18 19:10 28 08/13/18 19:10 98 20 87 Nasal Cannula 2.0 08/13/18 19:10 Nasal Cannula 2.0 28 08/13/18 19:10 87 Nasal Cannula 2.0 28 08/13/18 17:26 Nasal Cannula 2.0 08/13/18 16:00 92 08/13/18 16:00 Nasal Cannula 2.0 08/13/18 16:00 97.8 93 20 131/57 (81) 98 97.8 08/13/18 15:48 Nasal Cannula 2.0 28 08/13/18 15:48 Nasal Cannula 2.0 28 08/13/18 15:22 Nasal Cannula 2.0 08/13/18 13:31 131/57 08/13/18 12:00 97.8 84 21 125/55 (78) 97 97.8 08/13/18 12:00 84 08/13/18 12:00 Nasal Cannula 2.0 08/13/18 11:35 90 18 98 Nasal Cannula 2.0 28 08/13/18 11:25 90 20 94 Nasal Cannula 2.0 28 08/13/18 11:25 28 Intake and Output 08/13/18 08/14/18 19:00 07:00 Intake Total 1410 ml 265 ml Output Total 4350 ml 0 ml Balance -2940 ml 265 ml Intake Oral 100 ml 100 ml IV Total 110 ml 165 ml Blood Product 1200 ml Output Urine Total 350 ml 0 ml Hemodialysis UF 4000 ml General Appearance: WD/WN HEENT: normocephalic, atraumatic Respiratory/Chest: chest wall non-tender, lungs clear Cardiovascular: normal peripheral pulses, normal rate Abdomen: normal bowel sounds, soft, non tender Genitourinary: normal external genitalia Extremities: no cyanosis, no clubbing Skin: no rash, no lesions Neurologic/Psychiatric: blind aide II-XII grossly normal Microbiology Date/Time Source Procedure Growth Status 08/12/18 09:05 Blood Blood Culture - Preliminary NO GROWTH AFTER 24 HOURS Resulted 08/12/18 09:00 Blood Blood Culture - Preliminary NO GROWTH AFTER 24 HOURS Resulted 08/12/18 15:05 Sputum Expectorated Gram Stain - Final Complete 08/12/18 15:05 Sputum Expectorated Sputum Culture - Final NORMAL UPPER RESPIRATORY TOÑO PRESENT Complete 08/12/18 13:50 Nasal Nares Right MRSA Culture - Final NO METHICILLIN RESISTANT STAPH AUREUS... Complete 08/12/18 08:55 Nasal Nares Influenza Types A,B Antigen (JOSEFA) - Final Complete 08/12/18 13:50 Rectum VRE Culture - Final NO VANCOMYCIN RESISTANT ENTEROCOCCUS ... Complete Laboratory Tests 08/13/18 18:20: Troponin I 0.434H 08/13/18 19:12: Arterial Blood pH 7.448, Arterial Blood Partial Pressure CO2 39.9, Arterial Blood Partial Pressure O2 51.8L, Arterial Blood HCO3 27.0H, Arterial Blood Oxygen Saturation 86.3*L, Arterial Blood Base Excess 2.8H, Ugo Test Positive 08/14/18 03:25: Troponin I 1.969H, White Blood Count 9.3, Red Blood Count 2.53L, Hemoglobin 8.9L , Hematocrit 26.5L, Mean Corpuscular Volume 105H, Mean Corpuscular Hemoglobin 35.0H, Mean Corpuscular Hemoglobin Concent 33.4, Red Cell Distribution Width 13.0, Platelet Count 140L, Mean Platelet Volume 7.6, Neutrophils (%) (Auto) 83.5H, Lymphocytes (%) (Auto) 7.7L, Monocytes (%) (Auto) 8.1, Eosinophils (%) ( Auto) 0.1, Basophils (%) (Auto) 0.6, Prothrombin Time 12.9H, Prothromb Time International Ratio 1.2H, Activated Partial Thromboplast Time 40H, Sodium Level 136, Potassium Level 4.9, Chloride Level 97L, Carbon Dioxide Level 28, Anion Gap 11, Blood Urea Nitrogen 45H, Creatinine 5.4H, Estimat Glomerular Filtration Rate , Glucose Level 108H, Uric Acid 3.6, Calcium Level 8.8, Phosphorus Level 5.7H, Magnesium Level 2.0, Total Bilirubin 1.3H, Direct Bilirubin 0.4H, Aspartate Amino Transf (AST/SGOT) 239H, Alanine Aminotransferase (ALT/SGPT) 188H , Alkaline Phosphatase 136H, Pro-B-Type Natriuretic Peptide > 12111W, Total Protein 7.5, Albumin 3.1L, Globulin 4.4, Albumin/Globulin Ratio 0.7L Current Medications Medications (Trade) Dose Ordered Sig/Kris Route PRN Reason Start Time Stop Time Status Last Admin Dose Admin Acetaminophen (Tylenol) 650 mg Q4H PRN ORAL pain and Temp of 100 F 08/12/18 13:00 09/11/18 12:59 08/14/18 10:14 Albuterol Sulfate (Proventil) 2.5 mg Q4HRT HHN 08/12/18 15:00 08/17/18 14:59 08/14/18 10:42 Aspirin (ASA) 81 mg DAILY ORAL 08/14/18 09:00 09/13/18 08:59 08/14/18 10:05 Docusate Sodium (Colace) 100 mg THREE TIMES A DAY ORAL 08/12/18 13:00 09/11/18 12:59 08/14/18 10:04 Epoetin Issa (Procrit (for ESRD on dialysis)) 7,000 units SUN-SUN-SUN SUBQ 08/12/18 21:00 09/11/18 20:59 08/12/18 20:55 Hydralazine HCl (Apresoline) 25 mg Q8HR ORAL 08/13/18 22:00 09/11/18 13:59 08/14/18 06:08 Meclizine HCl (Antivert) 12.5 mg TIDPRN PRN ORAL dizziness 08/12/18 13:00 09/11/18 12:59 Metoprolol Tartrate (Lopressor) 12.5 mg DAILY ORAL 08/13/18 19:30 09/12/18 19:29 08/14/18 10:11 Mirtazapine (Remeron) 15 mg BEDTIME ORAL 08/12/18 21:00 09/11/18 20:59 08/13/18 20:56 Ondansetron HCl (Zofran) 4 mg Q6H PRN IVP Nausea & Vomiting 08/12/18 13:15 09/11/18 13:14 Pantoprazole (Protonix) 40 mg EVERY 12 HOURS ORAL 08/12/18 21:00 09/11/18 20:59 08/14/18 10:05 Piperacillin Sod/ Tazobactam Sod 2.25 gm/Dextrose 55 ml @ 110 mls/hr Q8H IVPB 08/12/18 18:00 08/19/18 17:59 08/14/18 10:06 Tamsulosin HCl (Flomax) 0.4 mg QHS ORAL 08/12/18 21:00 09/11/18 20:59 08/13/18 20:55 Trazodone HCl (Desyrel) 50 mg QHS ORAL 08/12/18 21:00 09/11/18 20:59 08/13/18 20:56 Vancomycin HCl (Vanco rx to dose) 1 ea DAILY PRN MISC Per rx protocol 08/12/18 14:15 09/11/18 14:14 Darius Watson MD Aug 14, 2018 11:12
[2018-08-14 12:00] VITALS: BP 139/60
--- NOTE | 2018-08-14 14:44 | Infectious Diseases Prog Note ---
Assessment/Plan Problems: (1) HCAP (healthcare-associated pneumonia) Assessment & Plan: suspect aspiration , continue zosyn empirically for now since HD patient, sputum culture grew normal respiratory kodak , so will stop vancomycin , had swallow eval. (2) Acute respiratory failure Assessment & Plan: due to the above, now on BIPAP , continue inhalers , monitor CXR (3) Coagulopathy Assessment & Plan: off anticoagulation for now due to hemoptysis , monitor INR , give FFP , and vit K as needed (4) Hemoptysis Assessment & Plan: due to the above , improving , off anticoagulation , monitor H/H , transfuse blood as needed, monitor CXR . (5) ESRD (end stage renal disease) on dialysis Assessment & Plan: on HD , renal is following Subjective Constitutional: Reports: no symptoms HEENT: Reports: no symptoms Respiratory: Reports: shortness of breath, productive cough Breasts: Reports: no symptoms Cardiovascular: Reports: no symptoms Gastrointestinal/Abdominal: Reports: no symptoms Genitourinary: Reports: no symptoms Neurologic: Reports: no symptoms Psychiatric: Reports: no symptoms Skin: Reports: no symptoms Endocrine: Reports: no symptoms Hematologic: Reports: no symptoms Musculoskeletal: Reports: no symptoms Allergies: Coded Allergies: BANANA (Verified Allergy, Severe, 08/12/18) GIL (Verified Allergy, Severe, 08/12/18) CARROT (Verified Allergy, Severe, 08/12/18) Dairy (Verified Allergy, Severe, 08/12/18) GRAPE (Verified Allergy, Severe, 08/12/18) Pork (Verified Allergy, Severe, 08/12/18) Potato (Verified Allergy, Severe, 08/12/18) Objective Vital Signs Last 24 Hour Vital Signs Date Time Temp Pulse Resp B/P (MAP) Pulse Ox O2 Delivery O2 Flow Rate FiO2 08/14/18 13:11 98 37 97 Facial 45 08/14/18 10:51 90 31 96 Bi-pap 45 08/14/18 10:45 45 08/14/18 10:44 91 33 98 Bi-pap 45 08/14/18 10:43 91 29 98 Facial 45 08/14/18 10:11 94 153/74 08/14/18 08:50 95 34 97 Facial 45 08/14/18 08:00 40 08/14/18 08:00 97.3 94 20 153/74 (100) 100 97.3 08/14/18 07:51 95 17/18 07:23 98 35 97 Facial 50 18 07:23 98 31 98 Bi-pap 50 08/14/18 07:21 Bi-pap 40 18 07:21 93 Bi-pap 40 18 07:18 50 18 07:18 101 38 93 Bi-pap 50 08/14/18 06:08 155/75 08/14/18 05:25 98 37 98 Facial 40 08/14/18 04:00 97.0 93 20 152/71 (98) 100 97.0 08/14/18 04:00 91 08/14/18 04:00 40 08/14/18 04:00 Bi-pap 08/14/18 03:26 90 29 98 Bi-pap 40 08/14/18 03:14 90 29 96 Bi-pap 40 08/14/18 03:14 60 08/14/18 02:47 89 29 98 Facial 40 08/14/18 00:58 88 30 99 Facial 50 08/14/18 00:00 99 08/14/18 00:00 Bi-pap 08/14/18 00:00 60 08/14/18 00:00 97.4 91 20 144/66 (92) 100 97.4 08/13/18 22:48 91 31 100 Bi-pap 60 08/13/18 22:37 87 31 100 Bi-pap 60 08/13/18 22:37 60 08/13/18 22:36 91 30 99 Facial 60 08/13/18 22:07 136/68 08/13/18 21:25 105 37 98 Facial 70 08/13/18 20:02 113 153/71 18 20:00 99 18 20:00 80 18 20:00 Bi-pap 08/13/18 20:00 97.3 113 20 153/71 (98) 100 97.3 08/13/18 19:25 103 41 100 Facial 80 18 19:25 111 20 91 Bi-pap 80 18 19:10 28 18 19:10 98 20 87 Nasal Cannula 2.0 28 08/13/18 19:10 Nasal Cannula 2.0 28 08/13/18 19:10 87 Nasal Cannula 2.0 28 08/13/18 17:26 Nasal Cannula 2.0 08/13/18 16:00 92 08/13/18 16:00 Nasal Cannula 2.0 08/13/18 16:00 97.8 93 20 131/57 (81) 98 97.8 08/13/18 15:48 Nasal Cannula 2.0 28 08/13/18 15:48 Nasal Cannula 2.0 28 08/13/18 15:22 Nasal Cannula 2.0 Height (Feet): 5 Height (Inches): 8.00 Weight (Pounds): 137 General Appearance: WD/WN, no acute distress, cachetic HEENT: normocephalic, atraumatic, anicteric, mucous membranes moist, PERRL, EOMI, pharynx normal, supple, no JVD Respiratory/Chest: chest wall non-tender, lungs clear, normal breath sounds, no respiratory distress, no accessory muscle use Cardiovascular: normal peripheral pulses, normal rate, regular rhythm, no gallop/murmur, no JVD Abdomen: normal bowel sounds, soft, non tender, no organomegaly, non distended , no mass, no scars Extremities: no cyanosis, no clubbing Skin: no rash, no lesions, no ulcers Neurologic/Psychiatric: alert, oriented x 3 Lymphatic: no neck adenopathy, no groin adenopathy Musculoskeletal: normal muscle bulk, no effusion Microbiology Date/Time Source Procedure Growth Status 08/12/18 09:05 Blood Blood Culture - Preliminary NO GROWTH AFTER 24 HOURS Resulted 08/12/18 09:00 Blood Blood Culture - Preliminary NO GROWTH AFTER 24 HOURS Resulted 08/12/18 15:05 Sputum Expectorated Gram Stain - Final Complete 08/12/18 15:05 Sputum Expectorated Sputum Culture - Final NORMAL UPPER RESPIRATORY [place] PRESENT Complete 08/12/18 13:50 Nasal Nares Right MRSA Culture - Final NO METHICILLIN RESISTANT STAPH AUREUS... Complete 08/12/18 08:55 Nasal Nares Influenza Types A,B Antigen (JOSEFA) - Final Complete 08/12/18 13:50 Rectum VRE Culture - Final NO VANCOMYCIN RESISTANT ENTEROCOCCUS ... Complete Laboratory Tests Test 08/13/18 18:20 08/13/18 19:12 08/14/18 03:25 Troponin I 0.434 ng/mL (0.000-0.056) 1.969 ng/mL (0.000-0.056) Arterial Blood pH 7.448 (7.350-7.450) Arterial Blood Partial Pressure CO2 39.9 mmHg (35.0-45.0) Arterial Blood Partial Pressure O2 51.8 mmHg (75.0-100.0) L Arterial Blood HCO3 27.0 mmol/L (22.0-26.0) H Arterial Blood Oxygen Saturation 86.3 % (95-100) *L Arterial Blood Base Excess 2.8 (-2-2) H Ugo Test Positive White Blood Count 9.3 K/UL (4.8-10.8) Red Blood Count 2.53 M/UL (4.70-6.10) L Hemoglobin 8.9 G/DL (14.2-18.0) L Hematocrit 26.5 % (42.0-52.0) L Mean Corpuscular Volume 105 FL (80-99) H Mean Corpuscular Hemoglobin 35.0 PG (27.0-31.0) H Mean Corpuscular Hemoglobin Concent 33.4 G/DL (32.0-36.0) Red Cell Distribution Width 13.0 % (11.6-14.8) Platelet Count 140 K/UL (150-450) L Mean Platelet Volume 7.6 FL (6.5-10.1) Neutrophils (%) (Auto) 83.5 % (45.0-75.0) H Lymphocytes (%) (Auto) 7.7 % (20.0-45.0) L Monocytes (%) (Auto) 8.1 % (1.0-10.0) Eosinophils (%) (Auto) 0.1 % (0.0-3.0) Basophils (%) (Auto) 0.6 % (0.0-2.0) Prothrombin Time 12.9 SEC (9.30-11.50) H Prothromb Time International Ratio 1.2 (0.9-1.1) H Activated Partial Thromboplast Time 40 SEC (23-33) H Sodium Level 136 MMOL/L (136-145) Potassium Level 4.9 MMOL/L (3.5-5.1) Chloride Level 97 MMOL/L (98-107) L Carbon Dioxide Level 28 MMOL/L (21-32) Anion Gap 11 mmol/L (5-15) Blood Urea Nitrogen 45 mg/dL (7-18) H Creatinine 5.4 MG/DL (0.55-1.30) H Estimat Glomerular Filtration Rate mL/min (>60) Glucose Level 108 MG/DL (74-106) H Uric Acid 3.6 MG/DL (2.6-7.2) Calcium Level 8.8 MG/DL (8.5-10.1) Phosphorus Level 5.7 MG/DL (2.5-4.9) H Magnesium Level 2.0 MG/DL (1.8-2.4) Total Bilirubin 1.3 MG/DL (0.2-1.0) H Direct Bilirubin 0.4 MG/DL (0.0-0.3) H Aspartate Amino Transf (AST/SGOT) 239 U/L (15-37) H Alanine Aminotransferase (ALT/SGPT) 188 U/L (12-78) H Alkaline Phosphatase 136 U/L (46-116) H Pro-B-Type Natriuretic Peptide > 59688 pg/mL (0-125) H Total Protein 7.5 G/DL (6.4-8.2) Albumin 3.1 G/DL (3.4-5.0) L Globulin 4.4 g/dL Albumin/Globulin Ratio 0.7 (1.0-2.7) L Current Medications Medications (Trade) Dose Ordered Sig/Kris Route PRN Reason Start Time Stop Time Status Last Admin Dose Admin Acetaminophen (Tylenol) 650 mg Q4H PRN ORAL pain and Temp of 100 F 08/12/18 13:00 09/11/18 12:59 08/14/18 10:14 Albuterol Sulfate (Proventil) 2.5 mg Q4HRT HHN 08/12/18 15:00 08/17/18 14:59 08/14/18 10:42 Aspirin (ASA) 81 mg DAILY ORAL 08/14/18 09:00 09/13/18 08:59 08/14/18 10:05 Docusate Sodium (Colace) 100 mg THREE TIMES A DAY ORAL 08/12/18 13:00 09/11/18 12:59 08/14/18 10:04 Epoetin Issa (Procrit (for ESRD on dialysis)) 7,000 units SUN-SUN-SUN SUBQ 08/12/18 21:00 11/14/18 20:59 08/12/18 20:55 Hydralazine HCl (Apresoline) 25 mg Q8HR ORAL 08/13/18 22:00 09/11/18 13:59 08/14/18 06:08 Meclizine HCl (Antivert) 12.5 mg TIDPRN PRN ORAL dizziness 08/12/18 13:00 09/11/18 12:59 Metoprolol Tartrate (Lopressor) 12.5 mg DAILY ORAL 08/13/18 19:30 09/12/18 19:29 08/14/18 10:11 Mirtazapine (Remeron) 15 mg BEDTIME ORAL 08/12/18 21:00 09/11/18 20:59 08/13/18 20:56 Ondansetron HCl (Zofran) 4 mg Q6H PRN IVP Nausea & Vomiting 08/12/18 13:15 09/11/18 13:14 Pantoprazole (Protonix) 40 mg EVERY 12 HOURS ORAL 08/12/18 21:00 09/11/18 20:59 08/14/18 10:05 Piperacillin Sod/ Tazobactam Sod 2.25 gm/Dextrose 55 ml @ 110 mls/hr Q8H IVPB 08/12/18 18:00 08/19/18 17:59 08/14/18 10:06 Tamsulosin HCl (Flomax) 0.4 mg QHS ORAL 08/12/18 21:00 09/11/18 20:59 08/13/18 20:55 Trazodone HCl (Desyrel) 50 mg QHS ORAL 08/12/18 21:00 09/11/18 20:59 08/13/18 20:56 Vancomycin HCl (Vanco rx to dose) 1 ea DAILY PRN MISC Per rx protocol 08/12/18 14:15 09/11/18 14:14 Donte Null M.D. Aug 14, 2018 14:44
--- NOTE | 2018-08-14 15:57 | Cardiology Report ---
APPROVED REPORT EKG Measurement Heart [id number] Normal sinus rhythm Possible Left atrial enlargement Prolonged QT Abnormal ECG
[2018-08-14 16:00] VITALS: BP 150/74
[2018-08-14 20:00] VITALS: BP 155/70
[2018-08-14] MEDS: TraZODone 50mg tab ORAL SCH (20:42)
[2018-08-14] MEDS: Tamsulosin 0.4mg cap ORAL SCH (20:43)
[2018-08-14] MEDS: Epogen (for ESRD on dialysis) SUBQ SCH (20:46)
--- NOTE | 2018-08-14 21:03 | Cardiology Progress Note ---
Assessment/Plan Assessment/Plan 1. Coagulopathy. 2. Pericardial effusion, increased in size since 2017. 3. Right atrial collapse, not changed since 2017. 4. Apical lateral increased echo, not changed since 2017. 5. Cough. 6. Mild segmental wall motion abnormality. 7. NSTEMI 8. ESRD on HD 9. Paroxysmal afib now in sinus as of last nite coag corrected asa started for nstemi no clinical evidence for tamponade may need surveillance echoes in future old echo reviewed the pericardial effusion and the ra collapse and the increased apical lateral echo ARE NOT NEW were present 12/2016 echo , however volume of effusion has increased rxn for possible pulm infection discuss with son regarding level of aggressive care he will need to discuss with to see if they want yp have cardiac cath or not reapeat ekg and tropp in am statin will be started d/w dr dee Subjective Cardiovascular: Denies: chest pain, lightheadedness Respiratory: Reports: shortness of breath Gastrointestinal/Abdominal: Denies: abdominal pain Genitourinary: Denies: burning Subjective staff translating Objective Last 24 Hour Vital Signs Date Time Temp Pulse Resp B/P (MAP) Pulse Ox O2 Delivery O2 Flow Rate FiO2 08/14/18 20:02 80 23 93 Venturi Mask 14.0 55 08/14/18 20:00 40 08/14/18 20:00 97.6 110 20 155/70 (98) 98 97.6 08/14/18 19:52 Non-Rebreather 15.0 100 08/14/18 19:52 28 08/14/18 19:51 98 Non-Rebreather 100 08/14/18 19:49 88 22 98 Non-Rebreather 100 08/14/18 18:40 88 20 98 08/14/18 16:50 75 20 98 Facial 45 08/14/18 16:00 79 08/14/18 16:00 40 08/14/18 16:00 Bi-pap 08/14/18 16:00 97.3 94 20 150/74 (99) 100 97.3 08/14/18 15:01 80 26 100 Bi-pap 45 08/14/18 14:57 80 26 99 Facial 45 08/14/18 14:55 80 26 100 Bi-pap 45 08/14/18 14:55 45 08/14/18 14:53 139/60 08/14/18 13:11 98 37 97 Facial 45 18 12:00 79 18 12:00 40 18 12:00 Bi-pap 18 12:00 97.6 81 14 139/60 (86) 99 97.6 18 10:51 90 31 96 Bi-pap 45 18 10:45 45 18 10:44 91 33 98 Bi-pap 45 18 10:43 91 29 98 Facial 45 08/14/18 10:11 94 153/74 18 08:50 95 34 97 Facial 45 18 08:00 40 18 08:00 97.3 94 20 153/74 (100) 100 97.3 08/14/18 08:00 Bi-pap 18 07:51 95 18 07:23 98 35 97 Facial 50 08/14/18 07:23 98 31 98 Bi-pap 50 08/14/18 07:21 Bi-pap 40 18 07:21 93 Bi-pap 40 08/14/18 07:18 50 08/14/18 07:18 101 38 93 Bi-pap 50 18 06:08 155/75 08/14/18 05:25 98 37 98 Facial 40 18 04:00 97.0 93 20 152/71 (98) 100 97.0 18 04:00 91 18 04:00 40 18 04:00 Bi-pap 08/14/18 03:26 90 29 98 Bi-pap 40 08/14/18 03:14 90 29 96 Bi-pap 40 08/14/18 03:14 60 08/14/18 02:47 89 29 98 Facial 40 08/14/18 00:58 88 30 99 Facial 50 17/18 00:00 99 17/18 00:00 Bi-pap 17/18 00:00 60 08/14/18 00:00 97.4 91 20 144/66 (92) 100 97.4 18 22:48 91 31 100 Bi-pap 60 16/18 22:37 87 31 100 Bi-pap 60 10/16/18 22:37 60 08/13/18 22:36 91 30 99 Facial 60 08/13/18 22:07 136/68 08/13/18 21:25 105 37 98 Facial 70 General Appearance: alert Neck: supple Cardiovascular: normal rate Respiratory/Chest: crackles/rales Abdomen: normal bowel sounds, non tender, soft Extremities: no swelling Intake and Output 08/13/18 08/14/18 19:00 07:00 Intake Total 1410 ml 265 ml Output Total 4350 ml 0 ml Balance -2940 ml 265 ml Intake Oral 100 ml 100 ml IV Total 110 ml 165 ml Blood Product 1200 ml Output Urine Total 350 ml 0 ml Hemodialysis UF 4000 ml Laboratory Tests Test 08/14/18 03:25 White Blood Count 9.3 K/UL (4.8-10.8) Red Blood Count 2.53 M/UL (4.70-6.10) L Hemoglobin 8.9 G/DL (14.2-18.0) L Hematocrit 26.5 % (42.0-52.0) L Mean Corpuscular Volume 105 FL (80-99) H Mean Corpuscular Hemoglobin 35.0 PG (27.0-31.0) H Mean Corpuscular Hemoglobin Concent 33.4 G/DL (32.0-36.0) Red Cell Distribution Width 13.0 % (11.6-14.8) Platelet Count 140 K/UL (150-450) L Mean Platelet Volume 7.6 FL (6.5-10.1) Neutrophils (%) (Auto) 83.5 % (45.0-75.0) H Lymphocytes (%) (Auto) 7.7 % (20.0-45.0) L Monocytes (%) (Auto) 8.1 % (1.0-10.0) Eosinophils (%) (Auto) 0.1 % (0.0-3.0) Basophils (%) (Auto) 0.6 % (0.0-2.0) Prothrombin Time 12.9 SEC (9.30-11.50) H Prothromb Time International Ratio 1.2 (0.9-1.1) H Activated Partial Thromboplast Time 40 SEC (23-33) H Sodium Level 136 MMOL/L (136-145) Potassium Level 4.9 MMOL/L (3.5-5.1) Chloride Level 97 MMOL/L (98-107) L Carbon Dioxide Level 28 MMOL/L (21-32) Anion Gap 11 mmol/L (5-15) Blood Urea Nitrogen 45 mg/dL (7-18) H Creatinine 5.4 MG/DL (0.55-1.30) H Estimat Glomerular Filtration Rate mL/min (>60) Glucose Level 108 MG/DL (74-106) H Uric Acid 3.6 MG/DL (2.6-7.2) Calcium Level 8.8 MG/DL (8.5-10.1) Phosphorus Level 5.7 MG/DL (2.5-4.9) H Magnesium Level 2.0 MG/DL (1.8-2.4) Total Bilirubin 1.3 MG/DL (0.2-1.0) H Direct Bilirubin 0.4 MG/DL (0.0-0.3) H Aspartate Amino Transf (AST/SGOT) 239 U/L (15-37) H Alanine Aminotransferase (ALT/SGPT) 188 U/L (12-78) H Alkaline Phosphatase 136 U/L (46-116) H Troponin I 1.969 ng/mL (0.000-0.056) Pro-B-Type Natriuretic Peptide > 84328 pg/mL (0-125) H Total Protein 7.5 G/DL (6.4-8.2) Albumin 3.1 G/DL (3.4-5.0) L Globulin 4.4 g/dL Albumin/Globulin Ratio 0.7 (1.0-2.7) L Microbiology Date/Time Source Procedure Growth Status 08/12/18 09:05 Blood Blood Culture - Preliminary NO GROWTH AFTER 24 HOURS Resulted 08/12/18 09:00 Blood Blood Culture - Preliminary NO GROWTH AFTER 24 HOURS Resulted 08/12/18 15:05 Sputum Expectorated Gram Stain - Final Complete 08/12/18 15:05 Sputum Expectorated Sputum Culture - Final NORMAL UPPER RESPIRATORY TOÑO PRESENT Complete 08/12/18 13:50 Nasal Nares Right MRSA Culture - Final NO METHICILLIN RESISTANT STAPH AUREUS... Complete 08/12/18 08:55 Nasal Nares Influenza Types A,B Antigen (JOSEFA) - Final Complete 08/12/18 13:50 Rectum VRE Culture - Final NO VANCOMYCIN RESISTANT ENTEROCOCCUS ... Complete Marko Thakkar MD Aug 14, 2018 21:03
--- NOTE | 2018-08-14 21:38 | General Progress Note ---
Assessment/Plan Problem List: (1) Aspiration pneumonia ICD Codes: J69.0 - Pneumonitis due to inhalation of food and vomit SNOMED: 872742383 (2) Hemoptysis ICD Codes: R04.2 - Hemoptysis SNOMED: 12108890 (3) ESRD (end stage renal disease) on dialysis ICD Codes: N18.6 - End stage renal failure on dialysis; Z99.2 - Dependence on renal dialysis SNOMED: 238807056 (4) Hypertension ICD Codes: I10 - Hypertension SNOMED: 11302967 (5) Cardiac ischemia ICD Codes: I25.9 - Chronic ischemic heart disease, unspecified SNOMED: 398719569 Status: unchanged Status Narrative elevated Troponin Assessment/Plan HD in am watch for Anemia FFP and Vit K given 08/13 2 D echo Cardiomyopathy Cardiology eval noted- discussed with Dr Thakkar Anti platelets / Anti coag / Cardiac Cath... Subjective ROS Limited/Unobtainable: No Constitutional: Reports: malaise Allergies: Coded Allergies: BANANA (Verified Allergy, Severe, 08/12/18) GIL (Verified Allergy, Severe, 08/12/18) CARROT (Verified Allergy, Severe, 08/12/18) Dairy (Verified Allergy, Severe, 08/12/18) GRAPE (Verified Allergy, Severe, 08/12/18) Pork (Verified Allergy, Severe, 08/12/18) Potato (Verified Allergy, Severe, 08/12/18) Objective Last 24 Hour Vital Signs Date Time Temp Pulse Resp B/P (MAP) Pulse Ox O2 Delivery O2 Flow Rate FiO2 08/14/18 20:02 80 23 93 Venturi Mask 14.0 55 08/14/18 20:00 40 08/14/18 20:00 97.6 110 20 155/70 (98) 98 97.6 08/14/18 19:52 Non-Rebreather 15.0 100 08/14/18 19:52 28 08/14/18 19:51 98 Non-Rebreather 100 08/14/18 19:49 88 22 98 Non-Rebreather 100 08/14/18 18:40 88 20 98 08/14/18 16:50 75 20 98 Facial 45 08/14/18 16:00 79 08/14/18 16:00 40 08/14/18 16:00 Bi-pap 10/17/18 16:00 97.3 94 20 150/74 (99) 100 97.3 18 15:01 80 26 100 Bi-pap 45 17/18 14:57 80 26 99 Facial 45 08/14/18 14:55 80 26 100 Bi-pap 45 08/14/18 14:55 45 17/18 14:53 139/60 18 13:11 98 37 97 Facial 45 18 12:00 79 18 12:00 40 18 12:00 Bi-pap 18 12:00 97.6 81 14 139/60 (86) 99 97.6 08/14/18 10:51 90 31 96 Bi-pap 45 18 10:45 45 18 10:44 91 33 98 Bi-pap 45 08/14/18 10:43 91 29 98 Facial 45 08/14/18 10:11 94 153/74 08/14/18 08:50 95 34 97 Facial 45 18 08:00 40 08/14/18 08:00 97.3 94 20 153/74 (100) 100 97.3 18 08:00 Bi-pap 18 07:51 95 17/18 07:23 98 35 97 Facial 50 08/14/18 07:23 98 31 98 Bi-pap 50 08/14/18 07:21 Bi-pap 40 08/14/18 07:21 93 Bi-pap 40 08/14/18 07:18 50 08/14/18 07:18 101 38 93 Bi-pap 50 08/14/18 06:08 155/75 08/14/18 05:25 98 37 98 Facial 40 08/14/18 04:00 97.0 93 20 152/71 (98) 100 97.0 08/14/18 04:00 91 17/18 04:00 40 08/14/18 04:00 Bi-pap 08/14/18 03:26 90 29 98 Bi-pap 40 17/18 03:14 90 29 96 Bi-pap 40 17/18 03:14 60 08/14/18 02:47 89 29 98 Facial 40 17/18 00:58 88 30 99 Facial 50 10/17/18 00:00 99 10/17/18 00:00 Bi-pap 08/14/18 00:00 60 08/14/18 00:00 97.4 91 20 144/66 (92) 100 97.4 08/13/18 22:48 91 31 100 Bi-pap 60 08/13/18 22:37 87 31 100 Bi-pap 60 08/13/18 22:37 60 08/13/18 22:36 91 30 99 Facial 60 08/13/18 22:07 136/68 Intake and Output 08/13/18 08/14/18 19:00 07:00 Intake Total 1410 ml 265 ml Output Total 4350 ml 0 ml Balance -2940 ml 265 ml Intake Oral 100 ml 100 ml IV Total 110 ml 165 ml Blood Product 1200 ml Output Urine Total 350 ml 0 ml Hemodialysis UF 4000 ml Laboratory Tests 08/14/18 03:25: White Blood Count 9.3, Red Blood Count 2.53L, Hemoglobin 8.9L, Hematocrit 26.5L , Mean Corpuscular Volume 105H, Mean Corpuscular Hemoglobin 35.0H, Mean Corpuscular Hemoglobin Concent 33.4, Red Cell Distribution Width 13.0, Platelet Count 140L, Mean Platelet Volume 7.6, Neutrophils (%) (Auto) 83.5H, Lymphocytes (%) (Auto) 7.7L, Monocytes (%) (Auto) 8.1, Eosinophils (%) (Auto) 0.1, Basophils (%) (Auto) 0.6, Prothrombin Time 12.9H, Prothromb Time International Ratio 1.2H, Activated Partial Thromboplast Time 40H, Sodium Level 136, Potassium Level 4.9, Chloride Level 97L, Carbon Dioxide Level 28, Anion Gap 11, Blood Urea Nitrogen 45H, Creatinine 5.4H, Estimat Glomerular Filtration Rate , Glucose Level 108H, Uric Acid 3.6, Calcium Level 8.8, Phosphorus Level 5.7H, Magnesium Level 2.0, Total Bilirubin 1.3H, Direct Bilirubin 0.4H, Aspartate Amino Transf (AST/SGOT) 239H, Alanine Aminotransferase (ALT/SGPT) 188H, Alkaline Phosphatase 136H, Troponin I 1.969H, Pro-B-Type Natriuretic Peptide > 97186Q, Total Protein 7.5, Albumin 3.1L, Globulin 4.4, Albumin/Globulin Ratio 0.7L Height (Feet): 5 Height (Inches): 8.00 Weight (Pounds): 137 Cardiovascular: bradycardia Respiratory/Chest: decreased breath sounds, rhonchi - bilaterally Abdomen: soft Ady Gómez MD Aug 14, 2018 21:38
[2018-08-15] VITALS (12 sets, daily range): BP systolic 75–150; BP diastolic 40–80
[2018-08-15] MEDS: Piperacillin/Tazobactam 2.25 GM in D5W 55 ML IVPB SCH ×3 (02:00→19:42)
[2018-08-15] MEDS: Albuterol ud Inhalation HHN SCH ×6 (03:13→23:12)
[2018-08-15 05:00] LABS: HEMATOCRIT 26.4 % (42.0-52.0); HEMOGLOBIN 8.9 G/DL (14.2-18.0); MEAN CORPUSCULAR VOLUME 104 FL (80-99); PLATELET COUNT 169 K/UL (150-450); RED BLOOD COUNT 2.53 M/UL (4.70-6.10); RED CELL DISTRIBUTION WIDTH 13.3 % (11.6-14.8); WHITE BLOOD COUNT 12.8 K/UL (4.8-10.8)
[2018-08-15 05:22] LABS: PHOSPHORUS 6.3 MG/DL (2.5-4.9)
[2018-08-15] MEDS: HydrALAZINE 25mg tab ORAL SCH ×3 (05:22→22:00)
[2018-08-15 05:46] LABS: ALANINE AMINOTRANSFERASE 153 U/L (12-78); ALBUMIN 2.8 G/DL (3.4-5.0); ALBUMIN/GLOBULIN RATIO 0.8 (1.0-2.7); ALKALINE PHOSPHATASE 132 U/L (46-116); ANION GAP 12 mmol/L (5-15); ASPARTATE AMINO TRANSFERASE 96 U/L (15-37); BILIRUBIN,TOTAL 1.2 MG/DL (0.2-1.0); BLOOD UREA NITROGEN 71 mg/dL (7-18); CALCIUM 8.4 MG/DL (8.5-10.1); CARBON DIOXIDE 28 MMOL/L (21-32); CHLORIDE 98 MMOL/L (98-107); CREATININE 6.7 MG/DL (0.55-1.30); POTASSIUM 5.3 MMOL/L (3.5-5.1); SODIUM 138 MMOL/L (136-145)
[2018-08-15 06:01] LABS: BILIRUBIN,DIRECT 0.5 MG/DL (0.0-0.3)
[2018-08-15 06:33] LABS: CREATINE KINASE 62 U/L (26-308)
[2018-08-15] MEDS: Docusate 100mg cap ORAL SCH ×3 (08:30→18:00)
[2018-08-15] MEDS: Aspirin Baby 81mg ORAL SCH (08:31)
[2018-08-15] MEDS ORDERED: Metoprolol Tartrate 12.5mg TAB ORAL SCH (09:00)
[2018-08-15] MEDS ORDERED: Heparin 2000 units/Ns 1000ml INJ PRN ×2 (10:45→17:00)
[2018-08-15] MEDS ORDERED: Lidocaine 1% Plain 30 ml INJ PRN ×2 (10:45→17:00)
--- NOTE | 2018-08-15 10:53 | Operative Note - PDOC ---
Operative Note Operative Note Date of Operation/Procedure: Aug 15, 2018 Pre-op Diagnosis: ESRD, poor peripheral access, pneumonia, CHF Procedure: right internal jugular central venous catheter insertion Post-op Diagnosis: same as pre-op Surgeon: cindy Specimen: none Complications: none Condition: stable Estimated Blood Loss: minimal Drains: none Implant(s) used?: No Indications for Procedure 83M ESRD on HD, CHF, PNA requiring meds, fluids, abx without peripheral access. central venous access indicated and recommended. consent obtained. Description of Procedure patient made comfortable at bedside in SUPA. pre procedure time out performed. protective sterile procedure with appropriate attire. ultrasound used to identify right Internal jugular vein as appropriate for line insertion. right neck prepped and draped in standard surgical fashion. patient positioned properly. using ultrasound guidance the right internal jugular vein was cannulated. guide wire placed over needle and needle removed. ultrasound identified wire in right internal jugular vein going towards the SVC. small skin incision made and dilator used over guide wire. triple lumen catheter inserted over wire and wire removed / discarded. all ports flushed and aspirated. catheter sutured in place. dressings applied. cxr taken. Ghanshyam Quintanilla Aug 15, 2018 10:52
--- NOTE | 2018-08-15 10:56 | Consultation ---
History of Present Illness General Date patient seen: Aug 15, 2018 Chief Complaint: Dyspnea/Respdistress Reason for Consultation: venous access Present Illness HPI 83 year old male with multiple medical comorbidities presented for medical care and management. Noted pneumonia, CHF, ESRD on HD. Cannot obtain peripheral access. patient needs venous access. surgery called to evaluate. patient seen , chart reviewed, patient examined. multiple prior attempts noted at peripheral access and EJ but unsuccessful. Allergies: Coded Allergies: BANANA (Verified Allergy, Severe, 08/12/18) GIL (Verified Allergy, Severe, 08/12/18) CARROT (Verified Allergy, Severe, 08/12/18) Dairy (Verified Allergy, Severe, 08/12/18) GRAPE (Verified Allergy, Severe, 08/12/18) Pork (Verified Allergy, Severe, 08/12/18) Potato (Verified Allergy, Severe, 08/12/18) Medication History Scheduled Allopurinol* (Allopurinol*), 200 MG ORAL DAILY Allopurinol* (Allopurinol*), 100 MG ORAL BID, (Reported) Aspirin (Aspirin EC), 81 MG ORAL DAILY, (Reported) Bacitracin (Bacitracin), 1 APPLIC TOPIC BID Carvedilol (Coreg), 12.5 MG ORAL EVERY 12 HOURS Darbepoetin Issa In Polysorbat (Aranesp), 35 MCG IV ONCE A WEEK, (Reported) Docusate Sodium* (Colace*), 100 MG ORAL THREE TIMES A DAY Finasteride (Finasteride), 5 MG ORAL DAILY Hydralazine Hcl* (Hydralazine Hcl*), 25 MG ORAL Q8HR Iron Sucrose Complex (Venofer), 50 MG IV ONCE A WEEK, (Reported) Meclizine Hcl* (Antivert*), 12.5 MG ORAL TID Mirtazapine* (Mirtazapine*), 15 MG ORAL BEDTIME Nifedipine Xl* (Procardia Xl*), 60 MG ORAL Q12HR Nifedipine Xl* (Procardia Xl*), 30 MG ORAL DAILY [place]-3 Fatty Acids/Fish Oil ([place] 3 Fish Oil Softgel), 1 EACH PO DAILY, ( Reported) Omeprazole (Omeprazole), 20 MG ORAL DAILY, (Reported) Tamsulosin HCl (Flomax), 0.4 MG ORAL TWICE A DAY Trazodone Hcl (Desyrel), 50 MG ORAL QHS Triamcinolone Acetonide (Triamcinolone Acetonide), 15 GM TP BID, (Reported) Vitamin B Complex (Vitamin B Complex), 1 CAP ORAL DAILY, (Reported) Warfarin Sod* (Coumadin*), 3 MG PO COUMADIN Warfarin Sod* (Warfarin Sod*), 1 MG ORAL DAILY, (Reported) Scheduled PRN Acetaminophen* (Acetaminophen 325MG Tablet*), 650 MG ORAL Q4H PRN Miscellaneous Medications Paricalcitol (Zemplar), 2 MCG IV, (Reported) Discontinued Medications Unable to Obtain Medications (Unable To Obtain Meds), (Reported) Discontinued Reason: MD discontinued med Patient History History Provided By: Patient, Medical Record, PMD Healthcare decision maker Resuscitation status Full Code Advanced Directive on File Past Medical/Surgical History Past Medical/Surgical History: (1) Aspiration pneumonia (2) Coagulopathy (3) Acute exacerbation of CHF (congestive heart failure) (4) HCAP (healthcare-associated pneumonia) (5) Cardiac ischemia (6) Intractable vomiting (7) Acute respiratory failure (8) Hepatic encephalopathy (9) Cachexia (10) Fluid overload (11) Hypertension (12) Non-compliance with treatment (13) Atrial fibrillation with rapid ventricular response (14) Urinary retention (15) Diarrhea (16) Anemia (17) Intractable diarrhea (18) Pneumonia (19) Debility (20) Interstitial lung disease (21) CVA (cerebral infarction) (22) COPD (chronic obstructive pulmonary disease) (23) Fluid overload (24) ESRD (end stage renal disease) on dialysis (25) Hemoptysis Review of Systems All Other Systems: negative except mentioned in HPI Physical Exam General Appearance: no apparent distress Lines, tubes and drains: other HEENT: normocephalic Neck: normal inspection Respiratory/Chest: no respiratory distress, no accessory muscle use Cardiovascular/Chest: normal rate, regular rhythm Abdomen: soft, no organomegaly, no mass Extremities: normal inspection Skin Exam: warm/dry Neurologic: alert, responsive Last 24 Hour Vital Signs Date Time Temp Pulse Resp B/P (MAP) Pulse Ox O2 Delivery O2 Flow Rate FiO2 08/15/18 09:11 115 136/60 08/15/18 08:00 Bi-pap 08/15/18 08:00 97.7 115 20 136/60 (85) 96 97.7 08/15/18 08:00 106 08/15/18 08:00 14.0 55 08/15/18 07:59 97 20 99 Venturi Mask 14.0 55 08/15/18 07:49 89 22 94 Venturi Mask 14.0 55 08/15/18 07:47 96 Venturi Mask 14.0 55 08/15/18 07:46 Venturi Mask 14.0 55 08/15/18 05:22 146/80 08/15/18 04:00 14.0 55 08/15/18 04:00 97.2 96 22 146/80 (102) 96 97.2 08/15/18 04:00 89 08/15/18 04:00 Bi-pap 08/15/18 03:31 96 21 94 Venturi Mask 14.0 55 08/15/18 03:31 28 08/15/18 03:14 88 20 96 Venturi Mask 14.0 55 08/15/18 00:00 14.0 55 08/15/18 00:00 97.8 100 20 150/64 (92) 97 97.8 08/15/18 00:00 92 08/15/18 00:00 Bi-pap 08/14/18 23:22 94 23 94 Venturi Mask 14.0 55 08/14/18 23:11 28 08/14/18 23:10 91 20 96 08/14/18 23:08 91 20 96 Venturi Mask 14.0 55 08/14/18 21:50 155/70 08/14/18 20:02 80 23 93 Venturi Mask 14.0 55 08/14/18 20:00 40 08/14/18 20:00 97.6 110 20 155/70 (98) 98 97.6 08/14/18 20:00 86 08/14/18 20:00 Bi-pap 08/14/18 19:57 88 23 94 08/14/18 19:57 91 26 94 Venturi Mask 55 08/14/18 19:52 Venturi Mask 14.0 55 08/14/18 19:52 28 08/14/18 19:51 98 Non-Rebreather 100 08/14/18 19:49 88 22 98 Non-Rebreather 100 08/14/18 18:40 88 20 98 08/14/18 16:50 75 20 98 Facial 45 08/14/18 16:00 79 08/14/18 16:00 40 10/17/18 16:00 Bi-pap 08/14/18 16:00 97.3 94 20 150/74 (99) 100 97.3 08/14/18 15:01 80 26 100 Bi-pap 45 08/14/18 14:57 80 26 99 Facial 45 08/14/18 14:55 80 26 100 Bi-pap 45 08/14/18 14:55 45 08/14/18 14:53 139/60 08/14/18 13:11 98 37 97 Facial 45 08/14/18 12:00 79 08/14/18 12:00 40 08/14/18 12:00 Bi-pap 08/14/18 12:00 97.6 81 14 139/60 (86) 99 97.6 Intake and Output 08/14/18 08/15/18 19:00 07:00 Intake Total 255 ml 50 ml Output Total 305 ml 50 ml Balance -50 ml 0 ml Intake Oral 200 ml 50 ml IV Total 55 ml Output Urine Total 305 ml 50 ml # Voids 2 # Bowel Movements 2 Laboratory Tests Test 08/14/18 21:50 08/15/18 04:30 08/15/18 09:05 C-Reactive Protein, Quantitative > 70.0 mg/dL (0.00-0.90) H White Blood Count 12.8 K/UL (4.8-10.8) H Red Blood Count 2.53 M/UL (4.70-6.10) L Hemoglobin 8.9 G/DL (14.2-18.0) L Hematocrit 26.4 % (42.0-52.0) L Mean Corpuscular Volume 104 FL (80-99) H Mean Corpuscular Hemoglobin 35.3 PG (27.0-31.0) H Mean Corpuscular Hemoglobin Concent 33.8 G/DL (32.0-36.0) Red Cell Distribution Width 13.3 % (11.6-14.8) Platelet Count 169 K/UL (150-450) Mean Platelet Volume 7.1 FL (6.5-10.1) Neutrophils (%) (Auto) % (45.0-75.0) Lymphocytes (%) (Auto) % (20.0-45.0) Monocytes (%) (Auto) % (1.0-10.0) Eosinophils (%) (Auto) % (0.0-3.0) Basophils (%) (Auto) % (0.0-2.0) Differential Total Cells Counted 100 Neutrophils % (Manual) 93 % (45-75) H Lymphocytes % (Manual) 6 % (20-45) L Monocytes % (Manual) 1 % (1-10) Eosinophils % (Manual) 0 % (0-3) Basophils % (Manual) 0 % (0-2) Band Neutrophils 0 % (0-8) Platelet Estimate Adequate Platelet Morphology Normal Sodium Level 138 MMOL/L (136-145) Potassium Level 5.3 MMOL/L (3.5-5.1) H Chloride Level 98 MMOL/L (98-107) Carbon Dioxide Level 28 MMOL/L (21-32) Anion Gap 12 mmol/L (5-15) Blood Urea Nitrogen 71 mg/dL (7-18) H Creatinine 6.7 MG/DL (0.55-1.30) H Estimat Glomerular Filtration Rate mL/min (>60) Glucose Level 129 MG/DL (74-106) H Uric Acid 4.8 MG/DL (2.6-7.2) Calcium Level 8.4 MG/DL (8.5-10.1) L Phosphorus Level 6.3 MG/DL (2.5-4.9) H Magnesium Level 2.2 MG/DL (1.8-2.4) Total Bilirubin 1.2 MG/DL (0.2-1.0) H Direct Bilirubin 0.5 MG/DL (0.0-0.3) H Aspartate Amino Transf (AST/SGOT) 96 U/L (15-37) H Alanine Aminotransferase (ALT/SGPT) 153 U/L (12-78) H Alkaline Phosphatase 132 U/L (46-116) H Total Creatine Kinase 62 U/L (26-308) Troponin I 3.970 ng/mL (0.000-0.056) Pro-B-Type Natriuretic Peptide > 38051 pg/mL (0-125) H Total Protein 6.4 G/DL (6.4-8.2) Albumin 2.8 G/DL (3.4-5.0) L Globulin 3.6 g/dL Albumin/Globulin Ratio 0.8 (1.0-2.7) L Prothrombin Time Pending Prothromb Time International Ratio Pending Activated Partial Thromboplast Time Pending Height (Feet): 5 Height (Inches): 8.00 Weight (Pounds): 137 Medications Current Medications Medications (Trade) Dose Ordered Sig/Kris Route PRN Reason Start Time Stop Time Status Last Admin Dose Admin Acetaminophen (Tylenol) 650 mg Q4H PRN ORAL pain and Temp of 100 F 08/12/18 13:00 09/11/18 12:59 08/14/18 10:14 Albuterol Sulfate (Proventil) 2.5 mg Q4HRT HHN 08/12/18 15:00 08/17/18 14:59 08/15/18 07:49 Aspirin (ASA) 81 mg DAILY ORAL 08/14/18 09:00 09/13/18 08:59 08/15/18 08:31 Chlorhexidine Gluconate (Anni-Hex 2%) 1 applic DAILY@2000 TOPIC 08/15/18 20:00 08/17/18 23:59 Docusate Sodium (Colace) 100 mg THREE TIMES A DAY ORAL 08/12/18 13:00 09/11/18 12:59 08/15/18 08:30 Epoetin Issa (Procrit (for ESRD on dialysis)) 7,000 units MON-WED-SUN SUBQ 08/12/18 21:00 09/11/18 20:59 08/14/18 20:46 Heparin Sodium/ Sodium Chloride (Heparin 2000 units/Ns 1000ml premix) 2,000 unit ONCE PRN INJ PICC PLACEMENT 08/15/18 10:45 08/17/18 23:59 Hydralazine HCl (Apresoline) 25 mg Q8HR ORAL 08/13/18 22:00 09/11/18 13:59 08/15/18 05:22 Lidocaine HCl (Xylocaine 1% 30ml) 30 ml ONCE PRN INJ PICC PLACEMENT 08/15/18 10:45 08/17/18 23:59 Meclizine HCl (Antivert) 12.5 mg TIDPRN PRN ORAL dizziness 08/12/18 13:00 09/11/18 12:59 Metoprolol Tartrate (Lopressor) 12.5 mg BID ORAL 08/15/18 09:00 09/12/18 19:29 08/15/18 09:11 Mirtazapine (Remeron) 15 mg BEDTIME ORAL 08/12/18 21:00 09/11/18 20:59 08/14/18 20:42 Ondansetron HCl (Zofran) 4 mg Q6H PRN IVP Nausea & Vomiting 08/12/18 13:15 09/11/18 13:14 Pantoprazole (Protonix) 40 mg EVERY 12 HOURS ORAL 08/12/18 21:00 09/11/18 20:59 08/15/18 08:30 Piperacillin Sod/ Tazobactam Sod 2.25 gm/Dextrose 55 ml @ 110 mls/hr Q8H IVPB 08/12/18 18:00 08/19/18 17:59 08/14/18 10:06 Tamsulosin HCl (Flomax) 0.4 mg QHS ORAL 08/12/18 21:00 09/11/18 20:59 08/14/18 20:43 Trazodone HCl (Desyrel) 50 mg QHS ORAL 08/12/18 21:00 09/11/18 20:59 08/14/18 20:42 Vancomycin HCl (Vanco rx to dose) 1 ea DAILY PRN MISC Per rx protocol 08/12/18 14:15 09/11/18 14:14 Assessment/Plan Problem List: (1) Acute exacerbation of CHF (congestive heart failure) ICD Codes: I50.9 - Heart failure, unspecified SNOMED: 41851591 (2) Acute respiratory failure ICD Codes: J96.00 - Acute respiratory failure SNOMED: 18417054 Assessment/Plan given medical history, current symptoms / diagnosis will need meds, fluids, antibiotics. needs central venous access as peripheral access not possible. central line placed at bedside using ultrasound see report thank you. will follow with stevie. Ghanshyam Quintanilla Aug 15, 2018 10:56
--- NOTE | 2018-08-15 11:50 | Pulmonology Progress Note ---
Assessment/Plan Problems: (1) Acute respiratory failure (2) Aspiration pneumonia (3) COPD (chronic obstructive pulmonary disease) (4) Interstitial lung disease (5) Non-compliance with treatment (6) Hypertension (7) ESRD (end stage renal disease) on dialysis (8) Debility Assessment/Plan INR is 1.2 antitussives check sputum, negative sofar blood cultures are negative IV abx HD by nephrology sliding scale diabetic diet titrate fio2 to sat of 92% cxr in am Subjective ROS Limited/Unobtainable: No Constitutional: Reports: no symptoms Respiratory: Reports: productive cough, sputum, hemoptysis Allergies: Coded Allergies: BANANA (Verified Allergy, Severe, 08/12/18) GIL (Verified Allergy, Severe, 08/12/18) CARROT (Verified Allergy, Severe, 08/12/18) Dairy (Verified Allergy, Severe, 08/12/18) GRAPE (Verified Allergy, Severe, 08/12/18) Pork (Verified Allergy, Severe, 08/12/18) Potato (Verified Allergy, Severe, 08/12/18) Objective Last 24 Hour Vital Signs Date Time Temp Pulse Resp B/P (MAP) Pulse Ox O2 Delivery O2 Flow Rate FiO2 08/15/18 09:11 115 136/60 08/15/18 08:00 Bi-pap 08/15/18 08:00 97.7 115 20 136/60 (85) 96 97.7 08/15/18 08:00 106 08/15/18 08:00 14.0 55 08/15/18 07:59 97 20 99 Venturi Mask 14.0 55 08/15/18 07:49 89 22 94 Venturi Mask 14.0 55 08/15/18 07:47 96 Venturi Mask 14.0 55 08/15/18 07:46 Venturi Mask 14.0 55 08/15/18 05:22 146/80 08/15/18 04:00 14.0 55 08/15/18 04:00 97.2 96 22 146/80 (102) 96 97.2 08/15/18 04:00 89 08/15/18 04:00 Bi-pap 08/15/18 03:31 96 21 94 Venturi Mask 14.0 55 08/15/18 03:31 28 08/15/18 03:14 88 20 96 Venturi Mask 14.0 55 08/15/18 00:00 14.0 55 08/15/18 00:00 97.8 100 20 150/64 (92) 97 97.8 08/15/18 00:00 92 08/15/18 00:00 Bi-pap 08/14/18 23:22 94 23 94 Venturi Mask 14.0 55 08/14/18 23:11 28 08/14/18 23:10 91 20 96 08/14/18 23:08 91 20 96 Venturi Mask 14.0 55 08/14/18 21:50 155/70 08/14/18 20:02 80 23 93 Venturi Mask 14.0 55 08/14/18 20:00 40 08/14/18 20:00 97.6 110 20 155/70 (98) 98 97.6 08/14/18 20:00 86 08/14/18 20:00 Bi-pap 08/14/18 19:57 88 23 94 08/14/18 19:57 91 26 94 Venturi Mask 55 08/14/18 19:52 Venturi Mask 14.0 55 08/14/18 19:52 28 08/14/18 19:51 98 Non-Rebreather 100 08/14/18 19:49 88 22 98 Non-Rebreather 100 08/14/18 18:40 88 20 98 08/14/18 16:50 75 20 98 Facial 45 08/14/18 16:00 79 08/14/18 16:00 40 08/14/18 16:00 Bi-pap 08/14/18 16:00 97.3 94 20 150/74 (99) 100 97.3 08/14/18 15:01 80 26 100 Bi-pap 45 08/14/18 14:57 80 26 99 Facial 45 08/14/18 14:55 80 26 100 Bi-pap 45 08/14/18 14:55 45 08/14/18 14:53 139/60 08/14/18 13:11 98 37 97 Facial 45 08/14/18 12:00 79 08/14/18 12:00 40 08/14/18 12:00 Bi-pap 08/14/18 12:00 97.6 81 14 139/60 (86) 99 97.6 Intake and Output 08/14/18 08/15/18 19:00 07:00 Intake Total 255 ml 50 ml Output Total 305 ml 50 ml Balance -50 ml 0 ml Intake Oral 200 ml 50 ml IV Total 55 ml Output Urine Total 305 ml 50 ml # Voids 2 # Bowel Movements 2 General Appearance: cachetic HEENT: normocephalic Respiratory/Chest: chest wall non-tender, lungs clear Cardiovascular: normal peripheral pulses, normal rate Abdomen: normal bowel sounds, soft, non tender Genitourinary: normal external genitalia Extremities: no cyanosis Neurologic/Psychiatric: special education educational assistant II-XII grossly normal, abnormal gait Microbiology Date/Time Source Procedure Growth Status 08/12/18 15:05 Sputum Expectorated Gram Stain - Final Complete 08/12/18 15:05 Sputum Expectorated Sputum Culture - Final NORMAL UPPER RESPIRATORY TOÑO PRESENT Complete 08/12/18 13:50 Nasal Nares Right MRSA Culture - Final NO METHICILLIN RESISTANT STAPH AUREUS... Complete 08/12/18 13:50 Rectum VRE Culture - Final NO VANCOMYCIN RESISTANT ENTEROCOCCUS ... Complete Laboratory Tests 08/14/18 21:50: C-Reactive Protein, Quantitative > 70.0H 08/15/18 04:30: White Blood Count 12.8H, Red Blood Count 2.53L, Hemoglobin 8.9L, Hematocrit 26.4L, Mean Corpuscular Volume 104H, Mean Corpuscular Hemoglobin 35.3H, Mean Corpuscular Hemoglobin Concent 33.8, Red Cell Distribution Width 13.3, Platelet Count 169, Mean Platelet Volume 7.1, Neutrophils (%) (Auto) , Lymphocytes (%) ( Auto) , Monocytes (%) (Auto) , Eosinophils (%) (Auto) , Basophils (%) (Auto) , Differential Total Cells Counted 100, Neutrophils % (Manual) 93H, Lymphocytes % (Manual) 6L, Monocytes % (Manual) 1, Eosinophils % (Manual) 0, Basophils % ( Manual) 0, Band Neutrophils 0, Platelet Estimate Adequate, Platelet Morphology Normal, Sodium Level 138, Potassium Level 5.3H, Chloride Level 98, Carbon Dioxide Level 28, Anion Gap 12, Blood Urea Nitrogen 71H, Creatinine 6.7H, Estimat Glomerular Filtration Rate , Glucose Level 129H, Uric Acid 4.8, Calcium Level 8.4L, Phosphorus Level 6.3H, Magnesium Level 2.2, Total Bilirubin 1.2H, Direct Bilirubin 0.5H, Aspartate Amino Transf (AST/SGOT) 96H, Alanine Aminotransferase (ALT/SGPT) 153H, Alkaline Phosphatase 132H, Total Creatine Kinase 62, Troponin I 3.970H, Pro-B-Type Natriuretic Peptide > 49547M, Total Protein 6.4, Albumin 2.8L, Globulin 3.6, Albumin/Globulin Ratio 0.8L 08/15/18 09:05: Prothrombin Time [Pending], Prothromb Time International Ratio [Pending], Activated Partial Thromboplast Time [Pending] Current Medications Medications (Trade) Dose Ordered Sig/Kris Route PRN Reason Start Time Stop Time Status Last Admin Dose Admin Acetaminophen (Tylenol) 650 mg Q4H PRN ORAL pain and Temp of 100 F 08/12/18 13:00 09/11/18 12:59 08/14/18 10:14 Albuterol Sulfate (Proventil) 2.5 mg Q4HRT HHN 08/12/18 15:00 08/17/18 14:59 08/15/18 07:49 Aspirin (ASA) 81 mg DAILY ORAL 08/14/18 09:00 09/13/18 08:59 08/15/18 08:31 Chlorhexidine Gluconate (Anni-Hex 2%) 1 applic DAILY@2000 TOPIC 08/15/18 20:00 08/17/18 23:59 Docusate Sodium (Colace) 100 mg THREE TIMES A DAY ORAL 08/12/18 13:00 09/11/18 12:59 08/15/18 08:30 Epoetin Issa (Procrit (for ESRD on dialysis)) 7,000 units SUN-SUN-SUN SUBQ 08/12/18 21:00 09/11/18 20:59 08/14/18 20:46 Heparin Sodium/ Sodium Chloride (Heparin 2000 units/Ns 1000ml premix) 2,000 unit ONCE PRN INJ PICC PLACEMENT 08/15/18 10:45 08/17/18 23:59 Hydralazine HCl (Apresoline) 25 mg Q8HR ORAL 08/13/18 22:00 09/11/18 13:59 08/15/18 05:22 Lidocaine HCl (Xylocaine 1% 30ml) 30 ml ONCE PRN INJ PICC PLACEMENT 08/15/18 10:45 08/17/18 23:59 Meclizine HCl (Antivert) 12.5 mg TIDPRN PRN ORAL dizziness 08/12/18 13:00 09/11/18 12:59 Metoprolol Tartrate (Lopressor) 12.5 mg BID ORAL 08/15/18 09:00 09/12/18 19:29 08/15/18 09:11 Mirtazapine (Remeron) 15 mg BEDTIME ORAL 08/12/18 21:00 09/11/18 20:59 08/14/18 20:42 Ondansetron HCl (Zofran) 4 mg Q6H PRN IVP Nausea & Vomiting 08/12/18 13:15 09/11/18 13:14 Pantoprazole (Protonix) 40 mg EVERY 12 HOURS ORAL 08/12/18 21:00 09/11/18 20:59 08/15/18 08:30 Piperacillin Sod/ Tazobactam Sod 2.25 gm/Dextrose 55 ml @ 110 mls/hr Q8H IVPB 08/12/18 18:00 08/19/18 17:59 08/14/18 10:06 Tamsulosin HCl (Flomax) 0.4 mg QHS ORAL 08/12/18 21:00 09/11/18 20:59 08/14/18 20:43 Trazodone HCl (Desyrel) 50 mg QHS ORAL 08/12/18 21:00 09/11/18 20:59 08/14/18 20:42 Darius Watson MD Aug 15, 2018 11:50
--- NOTE | 2018-08-15 12:40 | Diagnostic Imaging Report ---
Indication: Line placement Comparison: 08/15/2018 A single view chest radiograph was obtained. Findings: Right jugular line is present. The tip is in the right atrial region. Pulmonary edema again noted. Heart is enlarged. IMPRESSION: Right jugular line in good position.
--- NOTE | 2018-08-15 14:16 | Diagnostic Imaging Report ---
Indication: Dyspnea Comparison: 08/12/2018 A single view chest radiograph was obtained. Findings: Interstitial and alveolar airspace opacities are present bilaterally probably due to CHF/interstitial edema. New airspace disease in the right upper lobe and right midlung noted which may be worsening CHF or superimposed pneumonia. The heart is moderately enlarged. IMPRESSION: New airspace opacities in the right upper lobe right midlung may be pneumonia. CHF suspected.
[2018-08-15 14:45] LABS: INR 1.3 (0.9-1.1)
[2018-08-15] MEDS ORDERED: Heparin 25,000u/D5W 500ml 500 ML IV SCH (16:00)
[2018-08-15] MEDS ORDERED: Meclizine 25mg tab ORAL PRN (17:00)
[2018-08-15] MEDS ORDERED: LORazepam 1mg tab ORAL SCH (17:15)
[2018-08-15] MEDS: Morphine Sulfate 4mg/ml Inj (IV/IM USE ONLY) IVP PRN (17:32)
[2018-08-15] MEDS: LORazepam Inj 2mg/ml 1ml IV PRN ×2 (17:33→23:01)
--- NOTE | 2018-08-15 17:41 | Infectious Diseases Prog Note ---
Assessment/Plan Problems: (1) HCAP (healthcare-associated pneumonia) Assessment & Plan: S/P code , suspect more aspiration , continue zosyn and vancomycin empirically for now since he may have aspirated again , will repeat sputum culture , aspiration precaution and keep HOB > 30 degree (2) Acute respiratory failure Assessment & Plan: due to the above, S/P code , now intubated on mechanical ventilation , continue inhalers , monitor CXR (3) Coagulopathy Assessment & Plan: resolved now back on anticoagulation due to [place] , monitor INR, cardiology is following (4) Hemoptysis Assessment & Plan: due to the above , improving , monitor H/H , transfuse blood as needed, monitor CXR . (5) ESRD (end stage renal disease) on dialysis Assessment & Plan: on HD , renal is following (6) Cardiac ischemia Assessment & Plan: with elevated troponin , back on anticoagulation, cardiology is following Subjective ROS Limited/Unobtainable: Yes Allergies: Coded Allergies: BANANA (Verified Allergy, Severe, 08/12/18) GIL (Verified Allergy, Severe, 08/12/18) CARROT (Verified Allergy, Severe, 08/12/18) Dairy (Verified Allergy, Severe, 08/12/18) GRAPE (Verified Allergy, Severe, 08/12/18) Pork (Verified Allergy, Severe, 08/12/18) Potato (Verified Allergy, Severe, 08/12/18) Subjective he coded after he had bowel movement this afternoon, and became pale with no palpated pulse, was intubated and transferred to ICU , no awake and restless trying to take out ET tube . Objective Vital Signs Last 24 Hour Vital Signs Date Time Temp Pulse Resp B/P (MAP) Pulse Ox O2 Delivery O2 Flow Rate FiO2 08/15/18 16:55 137 29 100 08/15/18 16:30 90 08/15/18 16:00 Venturi Mask 08/15/18 16:00 97.7 97 20 107/49 (68) 97 97.7 08/15/18 16:00 14.0 55 08/15/18 15:29 87 08/15/18 14:58 92 18 98 Venturi Mask 14.0 55 08/15/18 14:48 90 20 93 Venturi Mask 14.0 55 08/15/18 14:08 124/59 08/15/18 12:00 92 08/15/18 12:00 14.0 55 08/15/18 12:00 97.7 90 19 129/56 (80) 96 97.7 08/15/18 12:00 Venturi Mask 08/15/18 11:57 Venturi Mask 08/15/18 11:55 Venturi Mask 08/15/18 09:11 115 136/60 08/15/18 08:00 Bi-pap 08/15/18 08:00 97.7 115 20 136/60 (85) 96 97.7 08/15/18 08:00 106 08/15/18 08:00 14.0 55 08/15/18 07:59 97 20 99 Venturi Mask 14.0 55 08/15/18 07:49 89 22 94 Venturi Mask 14.0 55 08/15/18 07:47 96 Venturi Mask 14.0 55 08/15/18 07:46 Venturi Mask 14.0 55 08/15/18 05:22 146/80 08/15/18 04:00 14.0 55 08/15/18 04:00 97.2 96 22 146/80 (102) 96 97.2 08/15/18 04:00 89 08/15/18 04:00 Bi-pap 08/15/18 03:31 96 21 94 Venturi Mask 14.0 55 08/15/18 03:31 28 08/15/18 03:14 88 20 96 Venturi Mask 14.0 55 08/15/18 00:00 14.0 55 08/15/18 00:00 97.8 100 20 150/64 (92) 97 97.8 08/15/18 00:00 92 08/15/18 00:00 Bi-pap 08/14/18 23:22 94 23 94 Venturi Mask 14.0 55 08/14/18 23:11 28 08/14/18 23:10 91 20 96 08/14/18 23:08 91 20 96 Venturi Mask 14.0 55 08/14/18 21:50 155/70 08/14/18 20:02 80 23 93 Venturi Mask 14.0 55 08/14/18 20:00 40 08/14/18 20:00 97.6 110 20 155/70 (98) 98 97.6 08/14/18 20:00 86 08/14/18 20:00 Bi-pap 08/14/18 19:57 88 23 94 08/14/18 19:57 91 26 94 Venturi Mask 55 08/14/18 19:52 Venturi Mask 14.0 55 08/14/18 19:52 28 08/14/18 19:51 98 Non-Rebreather 100 08/14/18 19:49 88 22 98 Non-Rebreather 100 08/14/18 18:40 88 20 98 Height (Feet): 5 Height (Inches): 8.00 Weight (Pounds): 137 General Appearance: WD/WN, cachetic, other - restless HEENT: normocephalic, atraumatic, anicteric, mucous membranes moist, PERRL Respiratory/Chest: chest wall non-tender, no respiratory distress, no accessory muscle use, decreased breath sounds, crackles/rales Cardiovascular: normal peripheral pulses, normal rate, regular rhythm, no gallop/murmur, no JVD Abdomen: normal bowel sounds, soft, non tender, no organomegaly, non distended , no mass, no scars Extremities: no cyanosis, no clubbing Skin: no rash, no lesions, other - bruises Neurologic/Psychiatric: alert, oriented x 3, responsive Lymphatic: no neck adenopathy, no groin adenopathy Musculoskeletal: normal muscle bulk, no effusion Laboratory Tests Test 08/14/18 21:50 08/15/18 04:30 08/15/18 14:20 C-Reactive Protein, Quantitative > 70.0 mg/dL (0.00-0.90) H White Blood Count 12.8 K/UL (4.8-10.8) H Red Blood Count 2.53 M/UL (4.70-6.10) L Hemoglobin 8.9 G/DL (14.2-18.0) L Hematocrit 26.4 % (42.0-52.0) L Mean Corpuscular Volume 104 FL (80-99) H Mean Corpuscular Hemoglobin 35.3 PG (27.0-31.0) H Mean Corpuscular Hemoglobin Concent 33.8 G/DL (32.0-36.0) Red Cell Distribution Width 13.3 % (11.6-14.8) Platelet Count 169 K/UL (150-450) Mean Platelet Volume 7.1 FL (6.5-10.1) Neutrophils (%) (Auto) % (45.0-75.0) Lymphocytes (%) (Auto) % (20.0-45.0) Monocytes (%) (Auto) % (1.0-10.0) Eosinophils (%) (Auto) % (0.0-3.0) Basophils (%) (Auto) % (0.0-2.0) Differential Total Cells Counted 100 Neutrophils % (Manual) 93 % (45-75) H Lymphocytes % (Manual) 6 % (20-45) L Monocytes % (Manual) 1 % (1-10) Eosinophils % (Manual) 0 % (0-3) Basophils % (Manual) 0 % (0-2) Band Neutrophils 0 % (0-8) Platelet Estimate Adequate Platelet Morphology Normal Sodium Level 138 MMOL/L (136-145) Potassium Level 5.3 MMOL/L (3.5-5.1) H Chloride Level 98 MMOL/L (98-107) Carbon Dioxide Level 28 MMOL/L (21-32) Anion Gap 12 mmol/L (5-15) Blood Urea Nitrogen 71 mg/dL (7-18) H Creatinine 6.7 MG/DL (0.55-1.30) H Estimat Glomerular Filtration Rate mL/min (>60) Glucose Level 129 MG/DL (74-106) H Uric Acid 4.8 MG/DL (2.6-7.2) Calcium Level 8.4 MG/DL (8.5-10.1) L Phosphorus Level 6.3 MG/DL (2.5-4.9) H Magnesium Level 2.2 MG/DL (1.8-2.4) Total Bilirubin 1.2 MG/DL (0.2-1.0) H Direct Bilirubin 0.5 MG/DL (0.0-0.3) H Aspartate Amino Transf (AST/SGOT) 96 U/L (15-37) H Alanine Aminotransferase (ALT/SGPT) 153 U/L (12-78) H Alkaline Phosphatase 132 U/L (46-116) H Total Creatine Kinase 62 U/L (26-308) Troponin I 3.970 ng/mL (0.000-0.056) Pro-B-Type Natriuretic Peptide > 11599 pg/mL (0-125) H Total Protein 6.4 G/DL (6.4-8.2) Albumin 2.8 G/DL (3.4-5.0) L Globulin 3.6 g/dL Albumin/Globulin Ratio 0.8 (1.0-2.7) L Prothrombin Time 13.6 SEC (9.30-11.50) H Prothromb Time International Ratio 1.3 (0.9-1.1) H Activated Partial Thromboplast Time 39 SEC (23-33) H Current Medications Medications (Trade) Dose Ordered Sig/Kris Route PRN Reason Start Time Stop Time Status Last Admin Dose Admin Acetaminophen (Tylenol) 650 mg Q4H PRN ORAL pain and Temp of 100 F 08/15/18 17:00 09/11/18 16:59 Albuterol Sulfate (Proventil) 2.5 mg Q4HRT HHN 08/15/18 19:00 08/17/18 14:59 Aspirin (ASA) 81 mg DAILY ORAL 08/16/18 09:00 09/13/18 08:59 Chlorhexidine Gluconate (Anni-Hex 2%) 1 applic DAILY@2000 TOPIC 08/15/18 20:00 08/17/18 23:59 Docusate Sodium (Colace) 100 mg THREE TIMES A DAY ORAL 08/15/18 18:00 09/11/18 12:59 Epoetin Issa (Procrit (for ESRD on dialysis)) 7,000 units SUN-SUN-SUN SUBQ 08/16/18 21:00 09/11/18 20:59 Heparin Sodium/ Dextrose 500 ml @ 14.962 mls/ hr ADJUST PER PROTOCOL IV 08/16/18 16:00 09/14/18 15:59 Heparin Sodium/ Sodium Chloride (Heparin 2000 units/Ns 1000ml premix) 2,000 unit ONCE PRN INJ picc line placement 08/15/18 17:00 08/15/18 23:59 Hydralazine HCl (Apresoline) 25 mg Q8HR ORAL 08/15/18 22:00 09/11/18 13:59 Lidocaine HCl (Xylocaine 1% 30ml) 30 ml ONCE PRN INJ picc line placement 08/15/18 17:00 08/15/18 23:59 Lorazepam (Ativan 2mg/ml 1ml) 2 mg Q2H PRN IV Agitation 08/15/18 17:30 08/22/18 17:29 Lorazepam (Ativan) 1 mg ONCE ORAL 08/15/18 17:15 08/15/18 18:15 Meclizine HCl (Antivert) 12.5 mg TIDPRN PRN ORAL dizziness 08/15/18 17:00 09/14/18 16:59 Metoprolol Tartrate (Lopressor) 12.5 mg Q12HR ORAL 08/15/18 21:00 09/14/18 20:59 Mirtazapine (Remeron) 15 mg BEDTIME ORAL 08/15/18 21:00 09/11/18 20:59 Morphine Sulfate (Morphine Sulfate) 4 mg Q4H PRN IVP For Pain 08/15/18 17:30 08/22/18 17:29 08/15/18 17:32 Ondansetron HCl (Zofran) 4 mg Q6H PRN IVP Nausea & Vomiting 08/15/18 17:00 09/11/18 16:59 Pantoprazole (Protonix) 40 mg EVERY 12 HOURS ORAL 08/15/18 21:00 09/11/18 20:59 Piperacillin Sod/ Tazobactam Sod 2.25 gm/Dextrose 55 ml @ 110 mls/hr Q8H IVPB 08/15/18 18:00 08/19/18 17:59 Tamsulosin HCl (Flomax) 0.4 mg QHS ORAL 08/15/18 21:00 09/11/18 20:59 Trazodone HCl (Desyrel) 50 mg QHS ORAL 08/15/18 21:00 09/11/18 20:59 Vancomycin HCl (Vanco rx to dose) 1 ea DAILY PRN MISC Per rx protocol 08/15/18 17:30 09/14/18 17:29 Donte Lombardo M.D. Aug 15, 2018 17:41
[2018-08-15] MEDS ORDERED: Sodium Polystyrene Sulfonate 15gm Powder NG SCH (18:45)
--- NOTE | 2018-08-15 18:48 | General Progress Note ---
Assessment/Plan Problem List: (1) Respiratory arrest ICD Codes: R09.2 - Respiratory arrest SNOMED: 97205981 (2) Aspiration pneumonia ICD Codes: J69.0 - Pneumonitis due to inhalation of food and vomit SNOMED: 106006419 (3) Hemoptysis ICD Codes: R04.2 - Hemoptysis SNOMED: 74604271 (4) ESRD (end stage renal disease) on dialysis ICD Codes: N18.6 - End stage renal failure on dialysis; Z99.2 - Dependence on renal dialysis SNOMED: 866785189 (5) Hypertension ICD Codes: I10 - Hypertension SNOMED: 50126202 (6) Cardiac ischemia ICD Codes: I25.9 - Chronic ischemic heart disease, unspecified SNOMED: 244589974 Status: deteriorating Assessment/Plan HD scheduled today- refused by patient despite of mediation by family on heparin now vent support iv heparin Sedation HD in am kayexelate for high K watch for Anemia FFP and Vit K given 08/13 2 D echo Cardiomyopathy Cardiology eval noted- discussed with Dr Thakkar Anti platelets / Anti coag / Cardiac Cath... Subjective ROS Limited/Unobtainable: Yes Constitutional: Reports: other - in ICU , intubated after code- refused dialysis earlier Allergies: Coded Allergies: BANANA (Verified Allergy, Severe, 08/12/18) GIL (Verified Allergy, Severe, 08/12/18) CARROT (Verified Allergy, Severe, 08/12/18) Dairy (Verified Allergy, Severe, 08/12/18) GRAPE (Verified Allergy, Severe, 08/12/18) Pork (Verified Allergy, Severe, 08/12/18) Potato (Verified Allergy, Severe, 08/12/18) Objective Last 24 Hour Vital Signs Date Time Temp Pulse Resp B/P (MAP) Pulse Ox O2 Delivery O2 Flow Rate FiO2 08/15/18 16:55 137 29 100 08/15/18 16:30 90 08/15/18 16:00 Venturi Mask 08/15/18 16:00 97.7 97 20 107/49 (68) 97 97.7 08/15/18 16:00 14.0 55 08/15/18 15:29 87 08/15/18 14:58 92 18 98 Venturi Mask 14.0 55 08/15/18 14:48 90 20 93 Venturi Mask 14.0 55 08/15/18 14:08 124/59 08/15/18 12:00 92 08/15/18 12:00 14.0 55 08/15/18 12:00 97.7 90 19 129/56 (80) 96 97.7 08/15/18 12:00 Venturi Mask 08/15/18 11:57 Venturi Mask 08/15/18 11:55 Venturi Mask 08/15/18 09:11 115 136/60 08/15/18 08:00 Bi-pap 08/15/18 08:00 97.7 115 20 136/60 (85) 96 97.7 08/15/18 08:00 106 08/15/18 08:00 14.0 55 08/15/18 07:59 97 20 99 Venturi Mask 14.0 55 08/15/18 07:49 89 22 94 Venturi Mask 14.0 55 08/15/18 07:47 96 Venturi Mask 14.0 55 08/15/18 07:46 Venturi Mask 14.0 55 08/15/18 05:22 146/80 08/15/18 04:00 14.0 55 08/15/18 04:00 97.2 96 22 146/80 (102) 96 97.2 08/15/18 04:00 89 08/15/18 04:00 Bi-pap 08/15/18 03:31 96 21 94 Venturi Mask 14.0 55 08/15/18 03:31 28 08/15/18 03:14 88 20 96 Venturi Mask 14.0 55 08/15/18 00:00 14.0 55 08/15/18 00:00 97.8 100 20 150/64 (92) 97 97.8 08/15/18 00:00 92 08/15/18 00:00 Bi-pap 08/14/18 23:22 94 23 94 Venturi Mask 14.0 55 08/14/18 23:11 28 08/14/18 23:10 91 20 96 08/14/18 23:08 91 20 96 Venturi Mask 14.0 55 08/14/18 21:50 155/70 08/14/18 20:02 80 23 93 Venturi Mask 14.0 55 08/14/18 20:00 40 08/14/18 20:00 97.6 110 20 155/70 (98) 98 97.6 08/14/18 20:00 86 08/14/18 20:00 Bi-pap 08/14/18 19:57 88 23 94 08/14/18 19:57 91 26 94 Venturi Mask 55 08/14/18 19:52 Venturi Mask 14.0 55 08/14/18 19:52 28 08/14/18 19:51 98 Non-Rebreather 100 08/14/18 19:49 88 22 98 Non-Rebreather 100 Intake and Output 08/14/18 08/15/18 19:00 07:00 Intake Total 255 ml 50 ml Output Total 305 ml 50 ml Balance -50 ml 0 ml Intake Oral 200 ml 50 ml IV Total 55 ml Output Urine Total 305 ml 50 ml # Voids 2 # Bowel Movements 2 Laboratory Tests 08/14/18 21:50: C-Reactive Protein, Quantitative > 70.0H 08/15/18 04:30: White Blood Count 12.8H, Red Blood Count 2.53L, Hemoglobin 8.9L, Hematocrit 26.4L, Mean Corpuscular Volume 104H, Mean Corpuscular Hemoglobin 35.3H, Mean Corpuscular Hemoglobin Concent 33.8, Red Cell Distribution Width 13.3, Platelet Count 169, Mean Platelet Volume 7.1, Neutrophils (%) (Auto) , Lymphocytes (%) ( Auto) , Monocytes (%) (Auto) , Eosinophils (%) (Auto) , Basophils (%) (Auto) , Differential Total Cells Counted 100, Neutrophils % (Manual) 93H, Lymphocytes % (Manual) 6L, Monocytes % (Manual) 1, Eosinophils % (Manual) 0, Basophils % ( Manual) 0, Band Neutrophils 0, Platelet Estimate Adequate, Platelet Morphology Normal, Sodium Level 138, Potassium Level 5.3H, Chloride Level 98, Carbon Dioxide Level 28, Anion Gap 12, Blood Urea Nitrogen 71H, Creatinine 6.7H, Estimat Glomerular Filtration Rate , Glucose Level 129H, Uric Acid 4.8, Calcium Level 8.4L, Phosphorus Level 6.3H, Magnesium Level 2.2, Total Bilirubin 1.2H, Direct Bilirubin 0.5H, Aspartate Amino Transf (AST/SGOT) 96H, Alanine Aminotransferase (ALT/SGPT) 153H, Alkaline Phosphatase 132H, Total Creatine Kinase 62, Troponin I 3.970H, Pro-B-Type Natriuretic Peptide > 97989W, Total Protein 6.4, Albumin 2.8L, Globulin 3.6, Albumin/Globulin Ratio 0.8L 08/15/18 14:20: Prothrombin Time 13.6H, Prothromb Time International Ratio 1.3H, Activated Partial Thromboplast Time 39H 08/15/18 18:17: Arterial Blood pH 7.431, Arterial Blood Partial Pressure CO2 36.9, Arterial Blood Partial Pressure O2 209.6H, Arterial Blood HCO3 24.0, Arterial Blood Oxygen Saturation 98.6, Arterial Blood Base Excess -0.2, Ugo Test Positive Height (Feet): 5 Height (Inches): 8.00 Weight (Pounds): 137 General Appearance: no apparent distress, other - sedated with Ativan Cardiovascular: tachycardia Respiratory/Chest: decreased breath sounds Abdomen: distended Ady Gómez MD Aug 15, 2018 18:48
[2018-08-15 19:23] LABS: ANION GAP 14 mmol/L (5-15); BLOOD UREA NITROGEN 83 mg/dL (7-18); CARBON DIOXIDE 27 MMOL/L (21-32); CHLORIDE 98 MMOL/L (98-107); CREATININE 7.4 MG/DL (0.55-1.30); SODIUM 139 MMOL/L (136-145)
--- NOTE | 2018-08-15 19:59 | Cardiology Progress Note ---
Assessment/Plan Assessment/Plan 1. Coagulopathy. 2. Pericardial effusion, increased in size since 2017. 3. Right atrial collapse, not changed since 2017. 4. Apical lateral increased echo, not changed since 2017. 5. Cough. 6. Mild segmental wall motion abnormality. 7. NSTEMI 8. ESRD on HD 9. Paroxysmal afib now in sinus as of last nite 10. cardiopulm arrest post bm coag corrected asa started for nstemi no clinical evidence for tamponade will need surveillance echoes in am old echo reviewed the pericardial effusion and the ra collapse and the increased apical lateral echo ARE NOT NEW were present 12/2016 echo , however volume of effusion has increased rxn for possible pulm infection my offic got a call form son indicating they did nto want to pursuit cardiac cath shortly aftyer above i was notified by dr dee pt had arrest was take to icu on d/w rn earlier hr 120 bp 170s per staff got ativan iv for agitation nwo sedated ekg orderd just beign performed now suction tubing bloody secretion cxr reviewed has cneterl line in place no anticoagulation for now in light fo bloody pulm secretion i just personaly discussed with alejo melendez pt son who confirmed afete discussion with family they do not want to have angiogarm / cardiac cath ekg now shows tinversion in lead v4-v6 Subjective ROS Limited/Unobtainable: Yes Subjective repoertedly post bm had a armaan arrest had cpr acls and was transfered to icu on the vent refused dialysis today Objective Last 24 Hour Vital Signs Date Time Temp Pulse Resp B/P (MAP) Pulse Ox O2 Delivery O2 Flow Rate FiO2 08/15/18 19:11 84 22 100 Mechanical Ventilator 100 08/15/18 19:04 84 20 100 Mechanical Ventilator 100 08/15/18 19:02 83 20 100 08/15/18 19:00 83 21 91/46 (61) 95 08/15/18 18:00 91 19 75/43 (54) 100 08/15/18 17:00 121 27 98/50 (66) 100 08/15/18 16:55 137 29 100 08/15/18 16:40 100 08/15/18 16:00 Venturi Mask 08/15/18 16:00 97.7 97 20 107/49 (68) 97 97.7 08/15/18 16:00 14.0 55 10/18/18 15:29 87 08/15/18 14:58 92 18 98 Venturi Mask 14.0 55 08/15/18 14:48 90 20 93 Venturi Mask 14.0 55 08/15/18 14:08 124/59 08/15/18 12:00 92 08/15/18 12:00 14.0 55 08/15/18 12:00 97.7 90 19 129/56 (80) 96 97.7 08/15/18 12:00 Venturi Mask 08/15/18 11:57 Venturi Mask 08/15/18 11:55 Venturi Mask 08/15/18 09:11 115 136/60 08/15/18 08:00 Bi-pap 08/15/18 08:00 97.7 115 20 136/60 (85) 96 97.7 08/15/18 08:00 106 08/15/18 08:00 14.0 55 08/15/18 07:59 97 20 99 Venturi Mask 14.0 55 08/15/18 07:49 89 22 94 Venturi Mask 14.0 55 08/15/18 07:47 96 Venturi Mask 14.0 55 08/15/18 07:46 Venturi Mask 14.0 55 08/15/18 05:22 146/80 08/15/18 04:00 14.0 55 08/15/18 04:00 97.2 96 22 146/80 (102) 96 97.2 08/15/18 04:00 89 08/15/18 04:00 Bi-pap 08/15/18 03:31 96 21 94 Venturi Mask 14.0 55 08/15/18 03:31 28 08/15/18 03:14 88 20 96 Venturi Mask 14.0 55 08/15/18 00:00 14.0 55 08/15/18 00:00 97.8 100 20 150/64 (92) 97 97.8 08/15/18 00:00 92 08/15/18 00:00 Bi-pap 08/14/18 23:22 94 23 94 Venturi Mask 14.0 55 08/14/18 23:11 28 08/14/18 23:10 91 20 96 08/14/18 23:08 91 20 96 Venturi Mask 14.0 55 08/14/18 21:50 155/70 10/17/18 20:02 80 23 93 Venturi Mask 14.0 55 08/14/18 20:00 40 08/14/18 20:00 97.6 110 20 155/70 (98) 98 97.6 08/14/18 20:00 86 08/14/18 20:00 Bi-pap 08/14/18 19:57 88 23 94 08/14/18 19:57 91 26 94 Venturi Mask 55 08/14/18 19:52 Venturi Mask 14.0 55 08/14/18 19:52 28 General Appearance: no apparent distress, agitated, on vent Neck: supple Cardiovascular: regular rhythm Respiratory/Chest: crackles/rales, rhonchi - bilaterally Abdomen: normal bowel sounds, non tender, soft Extremities: no swelling Intake and Output 08/14/18 08/15/18 19:00 07:00 Intake Total 255 ml 50 ml Output Total 305 ml 50 ml Balance -50 ml 0 ml Intake Oral 200 ml 50 ml IV Total 55 ml Output Urine Total 305 ml 50 ml # Voids 2 # Bowel Movements 2 Laboratory Tests Test 08/14/18 21:50 08/15/18 04:30 08/15/18 14:20 08/15/18 18:17 C-Reactive Protein, Quantitative > 70.0 mg/dL (0.00-0.90) H White Blood Count 12.8 K/UL (4.8-10.8) H Red Blood Count 2.53 M/UL (4.70-6.10) L Hemoglobin 8.9 G/DL (14.2-18.0) L Hematocrit 26.4 % (42.0-52.0) L Mean Corpuscular Volume 104 FL (80-99) H Mean Corpuscular Hemoglobin 35.3 PG (27.0-31.0) H Mean Corpuscular Hemoglobin Concent 33.8 G/DL (32.0-36.0) Red Cell Distribution Width 13.3 % (11.6-14.8) Platelet Count 169 K/UL (150-450) Mean Platelet Volume 7.1 FL (6.5-10.1) Neutrophils (%) (Auto) % (45.0-75.0) Lymphocytes (%) (Auto) % (20.0-45.0) Monocytes (%) (Auto) % (1.0-10.0) Eosinophils (%) (Auto) % (0.0-3.0) Basophils (%) (Auto) % (0.0-2.0) Differential Total Cells Counted 100 Neutrophils % (Manual) 93 % (45-75) H Lymphocytes % (Manual) 6 % (20-45) L Monocytes % (Manual) 1 % (1-10) Eosinophils % (Manual) 0 % (0-3) Basophils % (Manual) 0 % (0-2) Band Neutrophils 0 % (0-8) Platelet Estimate Adequate Platelet Morphology Normal Sodium Level 138 MMOL/L (136-145) Potassium Level 5.3 MMOL/L (3.5-5.1) H Chloride Level 98 MMOL/L (98-107) Carbon Dioxide Level 28 MMOL/L (21-32) Anion Gap 12 mmol/L (5-15) Blood Urea Nitrogen 71 mg/dL (7-18) H Creatinine 6.7 MG/DL (0.55-1.30) H Estimat Glomerular Filtration Rate mL/min (>60) Glucose Level 129 MG/DL (74-106) H Uric Acid 4.8 MG/DL (2.6-7.2) Calcium Level 8.4 MG/DL (8.5-10.1) L Phosphorus Level 6.3 MG/DL (2.5-4.9) H Magnesium Level 2.2 MG/DL (1.8-2.4) Total Bilirubin 1.2 MG/DL (0.2-1.0) H Direct Bilirubin 0.5 MG/DL (0.0-0.3) H Aspartate Amino Transf (AST/SGOT) 96 U/L (15-37) H Alanine Aminotransferase (ALT/SGPT) 153 U/L (12-78) H Alkaline Phosphatase 132 U/L (46-116) H Total Creatine Kinase 62 U/L (26-308) Troponin I 3.970 ng/mL (0.000-0.056) Pro-B-Type Natriuretic Peptide > 49593 pg/mL (0-125) H Total Protein 6.4 G/DL (6.4-8.2) Albumin 2.8 G/DL (3.4-5.0) L Globulin 3.6 g/dL Albumin/Globulin Ratio 0.8 (1.0-2.7) L Prothrombin Time 13.6 SEC (9.30-11.50) H Prothromb Time International Ratio 1.3 (0.9-1.1) H Activated Partial Thromboplast Time 39 SEC (23-33) H Arterial Blood pH 7.431 (7.350-7.450) Arterial Blood Partial Pressure CO2 36.9 mmHg (35.0-45.0) Arterial Blood Partial Pressure O2 209.6 mmHg (75.0-100.0) H Arterial Blood HCO3 24.0 mmol/L (22.0-26.0) Arterial Blood Oxygen Saturation 98.6 % (95-100) Arterial Blood Base Excess -0.2 (-2-2) Ugo Test Positive Test 08/15/18 18:50 Sodium Level 139 MMOL/L (136-145) Potassium Level 5.0 MMOL/L (3.5-5.1) Chloride Level 98 MMOL/L (98-107) Carbon Dioxide Level 27 MMOL/L (21-32) Anion Gap 14 mmol/L (5-15) Blood Urea Nitrogen 83 mg/dL (7-18) H Creatinine 7.4 MG/DL (0.55-1.30) H Estimat Glomerular Filtration Rate mL/min (>60) Glucose Level 143 MG/DL (74-106) H Calcium Level 9.0 MG/DL (8.5-10.1) Marko Thakkar MD Aug 15, 2018 19:59
[2018-08-15] MEDS ORDERED: Dyna-Hex 2% Top Sol 2oz TOPIC SCH (20:00)
[2018-08-15] MEDS: Dyna-Hex 2% Top Sol 2oz TOPIC SCH (20:20)
[2018-08-15] MEDS: Metoprolol Tartrate 12.5mg TAB ORAL SCH (21:00)
[2018-08-15] MEDS ORDERED: Tamsulosin 0.4mg cap ORAL SCH (21:00)
[2018-08-15] MEDS ORDERED: TraZODone 50mg tab ORAL SCH (21:00)
[2018-08-15] MEDS: Pantoprazole Inj IVP SCH (21:02)
[2018-08-16] VITALS (24 sets, daily range): BP systolic 89–152; BP diastolic 41–77
[2018-08-16] MEDS: LORazepam Inj 2mg/ml 1ml IV PRN ×4 (01:32→19:40)
[2018-08-16] MEDS: Piperacillin/Tazobactam 2.25 GM in D5W 55 ML IVPB SCH ×3 (01:32→18:27)
[2018-08-16] MEDS: Albuterol ud Inhalation HHN SCH ×6 (02:58→23:15)
[2018-08-16 05:12] LABS: HEMATOCRIT 19.4 % (42.0-52.0); MEAN CORPUSCULAR VOLUME 102 FL (80-99); PLATELET COUNT 135 K/UL (150-450); RED CELL DISTRIBUTION WIDTH 12.6 % (11.6-14.8); WHITE BLOOD COUNT 12.7 K/UL (4.8-10.8)
[2018-08-16 05:29] LABS: PHOSPHORUS 5.9 MG/DL (2.5-4.9)
[2018-08-16 05:58] LABS: ALANINE AMINOTRANSFERASE 147 U/L (12-78); ALBUMIN/GLOBULIN RATIO 0.6 (1.0-2.7); ALKALINE PHOSPHATASE 106 U/L (46-116); ANION GAP 14 mmol/L (5-15); ASPARTATE AMINO TRANSFERASE 107 U/L (15-37); BLOOD UREA NITROGEN 87 mg/dL (7-18); CALCIUM 8.3 MG/DL (8.5-10.1); CARBON DIOXIDE 27 MMOL/L (21-32); CHLORIDE 99 MMOL/L (98-107); POTASSIUM 4.3 MMOL/L (3.5-5.1); SODIUM 140 MMOL/L (136-145)
[2018-08-16] MEDS: HydrALAZINE 25mg tab ORAL SCH ×3 (06:00→22:00)
[2018-08-16 06:09] LABS: HEMOGLOBIN 6.7 G/DL (14.2-18.0)
[2018-08-16] MEDS ORDERED: Vancomycin 1gm/D5W 275ml IVPB SCH ×4 (07:00→09:00)
[2018-08-16] MEDS: Pantoprazole Inj IVP SCH ×2 (08:23→21:03)
[2018-08-16] MEDS: Metoprolol Tartrate 12.5mg TAB ORAL SCH ×2 (08:25→21:04)
[2018-08-16] MEDS: Docusate 100mg cap ORAL SCH ×3 (08:26→18:27)
--- NOTE | 2018-08-16 08:29 | Diagnostic Imaging Report ---
Indication: Shortness of breath Technique: One view of the chest Comparison: 6 hours earlier Findings: Interval insertion of endotracheal tube, tip projected at the level of the thoracic inlet and approximately 9 cm above the monica. Again demonstrated is diffuse bilateral interstitial and airspace disease and bilateral pleural fluid. The heart remains enlarged. Right internal jugular central venous catheter is again demonstrated. There are overlying defibrillator paddles Impression: Endotracheal tube projected just below the thoracic inlet Other stable findings as described. This agrees with the preliminary interpretation provided overnight by [facility] service.
--- NOTE | 2018-08-16 08:42 | Diagnostic Imaging Report ---
Indication: Status post nasogastric tube placement Technique: Supine view of the upper abdomen Comparison: none Findings: Contrast from recent swallowing study is seen within the colon in the limited residual within the stomach. Interim placement of a nasogastric tube, tip which projects at the level gastric fundus/body junction. Bowel gas pattern is grossly unremarkable. Right jugular central venous catheter, cardiomegaly, and diffuse pulmonary parenchymal disease are demonstrated. Overlying defibrillator paddles are noted.. Impression: Satisfactory nasogastric intubation Other stable findings as noted This agrees with the preliminary interpretation provided overnight by [facility] service.
[2018-08-16] MEDS ORDERED: Aspirin Baby 81mg ORAL SCH (09:00)
--- NOTE | 2018-08-16 10:05 | Diagnostic Imaging Report ---
Indication: Dyspnea Technique: One view of the chest Comparison: 08/15/2018 Findings: Interim nasogastric intubation, apparent satisfactory position of nasogastric tube. Stable satisfactory position of endotracheal tube and right jugular central venous catheter. There is extensive diffuse bilateral interstitial and airspace disease, which appears slightly improved but still severe. Bilateral pleural effusions are again demonstrated Impression: Slightly improved but still extensive bilateral interstitial and airspace disease, over one day. Stable bilateral pleural effusions
[2018-08-16] MEDS ORDERED: Tubing Blood Filter IV ONE (10:26)
[2018-08-16] MEDS ORDERED: Tubing IV Secondary IV ONE ×2 (10:26→10:37)
[2018-08-16] MEDS ORDERED: NS 275ml ONE ×3 (10:26→10:37)
[2018-08-16] MEDS ORDERED: Sterile Water Irrig 1000ml IRRIG ONE (10:37)
[2018-08-16] MEDS ORDERED: NS 500ML ONE (10:37)
--- NOTE | 2018-08-16 10:57 | Pulmonolgy Critical Care Note ---
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, 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, 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 - Objective Last 24 Hour Vital Signs Date Time Temp Pulse Resp B/P (MAP) Pulse Ox O2 Delivery O2 Flow Rate FiO2 08/16/18 10:51 70 20 40 08/16/18 10:00 73 20 137/69 (91) 100 08/16/18 09:00 76 20 118/64 (82) 100 08/16/18 08:36 87 20 40 08/16/18 08:25 84 140/62 08/16/18 08:00 Mechanical Ventilator 08/16/18 08:00 98.0 84 20 140/62 (88) 100 98.0 08/16/18 08:00 75 08/16/18 08:00 40 08/16/18 07:00 85 20 137/53 (81) 100 08/16/18 06:45 89 20 100 Mechanical Ventilator 40 08/16/18 06:42 81 20 40 08/16/18 06:40 82 20 100 Mechanical Ventilator 40 08/16/18 06:00 111/41 08/16/18 06:00 78 20 111/41 (64) 100 08/16/18 05:09 86 21 40 08/16/18 05:00 86 20 141/66 (91) 100 08/16/18 04:00 82 08/16/18 04:00 Mechanical Ventilator 08/16/18 04:00 97.9 83 20 118/58 (78) 100 97.9 08/16/18 04:00 60 08/16/18 03:09 85 20 100 Mechanical Ventilator 60 08/16/18 03:00 80 20 93/48 (63) 100 08/16/18 02:57 80 20 100 Mechanical Ventilator 60 08/16/18 02:55 80 20 100 08/16/18 02:00 77 20 89/42 (58) 100 08/16/18 01:00 84 20 120/70 (87) 100 08/16/18 00:56 77 20 100 08/16/18 00:00 Mechanical Ventilator 08/16/18 00:00 80 08/16/18 00:00 97.8 80 20 96/54 (68) 100 97.8 08/16/18 00:00 82 08/15/18 23:18 76 20 100 Mechanical Ventilator 100 08/15/18 23:11 82 20 99 Mechanical Ventilator 100 08/15/18 23:08 85 20 100 08/15/18 23:00 80 20 91/40 (57) 100 08/15/18 22:00 96/39 08/15/18 22:00 78 20 95/45 (62) 100 08/15/18 21:12 87 20 100 08/15/18 21:00 90 20 121/63 (82) 100 08/15/18 21:00 84 91/35 08/15/18 20:00 100 08/15/18 20:00 100 08/15/18 20:00 Mechanical Ventilator 08/15/18 20:00 97.8 82 20 107/43 (64) 100 97.8 08/15/18 20:00 85 08/15/18 19:11 84 22 100 Mechanical Ventilator 100 08/15/18 19:04 84 20 100 Mechanical Ventilator 100 08/15/18 19:02 83 20 100 08/15/18 19:00 83 21 91/46 (61) 95 08/15/18 18:00 91 19 75/43 (54) 100 08/15/18 17:00 121 27 98/50 (66) 100 08/15/18 16:55 137 29 100 08/15/18 16:40 100 08/15/18 16:00 Venturi Mask 08/15/18 16:00 97.7 97 20 107/49 (68) 97 97.7 08/15/18 16:00 14.0 55 18 15:29 87 08/15/18 14:58 92 18 98 Venturi Mask 14.0 55 08/15/18 14:48 90 20 93 Venturi Mask 14.0 55 08/15/18 14:08 124/59 10/18/18 12:00 92 08/15/18 12:00 14.0 55 08/15/18 12:00 97.7 90 19 129/56 (80) 96 97.7 08/15/18 12:00 Venturi Mask 08/15/18 11:57 Venturi Mask 08/15/18 11:55 Venturi Mask Status: awake, sedated Condition: critical HEENT: atraumatic Neck: full ROM Abdomen: soft, non-tender, feeding tube Extremities: no C/C/E Critical Care - Subjective ROS Limited/Unobtainable: Yes Intubation Day: 2 Interval Events: pt arrested yesterday and was intubated and transferred to ICU FI02: 40 Vent Support Breath Rate: 20 Vent Support Mode: AC Vent Tidal Volume: 600 Sputum Amount: Scant PEEP: 0.0 PIP: 27 I&O: Intake and Output 08/15/18 08/16/18 18:59 06:59 Intake Total 210 ml 110 ml Balance 210 ml 110 ml Intake Oral 100 ml IV Total 110 ml 110 ml # Bowel Movements 2 1 CXR: Laboratory Tests Test 08/15/18 14:20 08/15/18 18:17 08/15/18 18:50 08/16/18 04:30 Prothrombin Time 13.6 SEC (9.30-11.50) H Prothromb Time International Ratio 1.3 (0.9-1.1) H Activated Partial Thromboplast Time 39 SEC (23-33) H Arterial Blood pH 7.431 (7.350-7.450) Arterial Blood Partial Pressure CO2 36.9 mmHg (35.0-45.0) Arterial Blood Partial Pressure O2 209.6 mmHg (75.0-100.0) H Arterial Blood HCO3 24.0 mmol/L (22.0-26.0) Arterial Blood Oxygen Saturation 98.6 % (95-100) Arterial Blood Base Excess -0.2 (-2-2) Ugo Test Positive Sodium Level 139 MMOL/L (136-145) 140 MMOL/L (136-145) Potassium Level 5.0 MMOL/L (3.5-5.1) 4.3 MMOL/L (3.5-5.1) Chloride Level 98 MMOL/L (98-107) 99 MMOL/L (98-107) Carbon Dioxide Level 27 MMOL/L (21-32) 27 MMOL/L (21-32) Anion Gap 14 mmol/L (5-15) 14 mmol/L (5-15) Blood Urea Nitrogen 83 mg/dL (7-18) H 87 mg/dL (7-18) H Creatinine 7.4 MG/DL (0.55-1.30) H 8.0 MG/DL (0.55-1.30) H Estimat Glomerular Filtration Rate mL/min (>60) mL/min (>60) Glucose Level 143 MG/DL (74-106) H 110 MG/DL (74-106) H Calcium Level 9.0 MG/DL (8.5-10.1) 8.3 MG/DL (8.5-10.1) L White Blood Count 12.7 K/UL (4.8-10.8) H Red Blood Count 1.90 M/UL (4.70-6.10) L Hemoglobin 6.7 G/DL (14.2-18.0) *L Hematocrit 19.4 % (42.0-52.0) L Mean Corpuscular Volume 102 FL (80-99) H Mean Corpuscular Hemoglobin 35.2 PG (27.0-31.0) H Mean Corpuscular Hemoglobin Concent 34.6 G/DL (32.0-36.0) Red Cell Distribution Width 12.6 % (11.6-14.8) Platelet Count 135 K/UL (150-450) L Mean Platelet Volume 6.7 FL (6.5-10.1) Neutrophils (%) (Auto) % (45.0-75.0) Lymphocytes (%) (Auto) % (20.0-45.0) Monocytes (%) (Auto) % (1.0-10.0) Eosinophils (%) (Auto) % (0.0-3.0) Basophils (%) (Auto) % (0.0-2.0) Differential Total Cells Counted 100 Neutrophils % (Manual) 87 % (45-75) H Lymphocytes % (Manual) 5 % (20-45) L Monocytes % (Manual) 8 % (1-10) Eosinophils % (Manual) 0 % (0-3) Basophils % (Manual) 0 % (0-2) Band Neutrophils 0 % (0-8) Platelet Estimate Decreased L Platelet Morphology Normal Hypochromasia 4+ Anisocytosis 1+ Macrocytosis 1+ Phosphorus Level 5.9 MG/DL (2.5-4.9) H Magnesium Level 2.1 MG/DL (1.8-2.4) Total Bilirubin 1.0 MG/DL (0.2-1.0) Aspartate Amino Transf (AST/SGOT) 107 U/L (15-37) H Alanine Aminotransferase (ALT/SGPT) 147 U/L (12-78) H Alkaline Phosphatase 106 U/L (46-116) Troponin I 3.948 ng/mL (0.000-0.056) C-Reactive Protein, Quantitative 23.5 mg/dL (0.00-0.90) H Pro-B-Type Natriuretic Peptide > 69564 pg/mL (0-125) H Total Protein 5.3 G/DL (6.4-8.2) L Albumin 2.0 G/DL (3.4-5.0) L Globulin 3.3 g/dL Albumin/Globulin Ratio 0.6 (1.0-2.7) L Random Vancomycin Level 16.2 ug/mL ET-Tube: 7.0 ET Position: 22 Labs: Laboratory Tests Test 08/15/18 14:20 08/15/18 18:17 08/15/18 18:50 08/16/18 04:30 Prothrombin Time 13.6 SEC (9.30-11.50) H Prothromb Time International Ratio 1.3 (0.9-1.1) H Activated Partial Thromboplast Time 39 SEC (23-33) H Arterial Blood pH 7.431 (7.350-7.450) Arterial Blood Partial Pressure CO2 36.9 mmHg (35.0-45.0) Arterial Blood Partial Pressure O2 209.6 mmHg (75.0-100.0) H Arterial Blood HCO3 24.0 mmol/L (22.0-26.0) Arterial Blood Oxygen Saturation 98.6 % (95-100) Arterial Blood Base Excess -0.2 (-2-2) Ugo Test Positive Sodium Level 139 MMOL/L (136-145) 140 MMOL/L (136-145) Potassium Level 5.0 MMOL/L (3.5-5.1) 4.3 MMOL/L (3.5-5.1) Chloride Level 98 MMOL/L (98-107) 99 MMOL/L (98-107) Carbon Dioxide Level 27 MMOL/L (21-32) 27 MMOL/L (21-32) Anion Gap 14 mmol/L (5-15) 14 mmol/L (5-15) Blood Urea Nitrogen 83 mg/dL (7-18) H 87 mg/dL (7-18) H Creatinine 7.4 MG/DL (0.55-1.30) H 8.0 MG/DL (0.55-1.30) H Estimat Glomerular Filtration Rate mL/min (>60) mL/min (>60) Glucose Level 143 MG/DL (74-106) H 110 MG/DL (74-106) H Calcium Level 9.0 MG/DL (8.5-10.1) 8.3 MG/DL (8.5-10.1) L White Blood Count 12.7 K/UL (4.8-10.8) H Red Blood Count 1.90 M/UL (4.70-6.10) L Hemoglobin 6.7 G/DL (14.2-18.0) *L Hematocrit 19.4 % (42.0-52.0) L Mean Corpuscular Volume 102 FL (80-99) H Mean Corpuscular Hemoglobin 35.2 PG (27.0-31.0) H Mean Corpuscular Hemoglobin Concent 34.6 G/DL (32.0-36.0) Red Cell Distribution Width 12.6 % (11.6-14.8) Platelet Count 135 K/UL (150-450) L Mean Platelet Volume 6.7 FL (6.5-10.1) Neutrophils (%) (Auto) % (45.0-75.0) Lymphocytes (%) (Auto) % (20.0-45.0) Monocytes (%) (Auto) % (1.0-10.0) Eosinophils (%) (Auto) % (0.0-3.0) Basophils (%) (Auto) % (0.0-2.0) Differential Total Cells Counted 100 Neutrophils % (Manual) 87 % (45-75) H Lymphocytes % (Manual) 5 % (20-45) L Monocytes % (Manual) 8 % (1-10) Eosinophils % (Manual) 0 % (0-3) Basophils % (Manual) 0 % (0-2) Band Neutrophils 0 % (0-8) Platelet Estimate Decreased L Platelet Morphology Normal Hypochromasia 4+ Anisocytosis 1+ Macrocytosis 1+ Phosphorus Level 5.9 MG/DL (2.5-4.9) H Magnesium Level 2.1 MG/DL (1.8-2.4) Total Bilirubin 1.0 MG/DL (0.2-1.0) Aspartate Amino Transf (AST/SGOT) 107 U/L (15-37) H Alanine Aminotransferase (ALT/SGPT) 147 U/L (12-78) H Alkaline Phosphatase 106 U/L (46-116) Troponin I 3.948 ng/mL (0.000-0.056) C-Reactive Protein, Quantitative 23.5 mg/dL (0.00-0.90) H Pro-B-Type Natriuretic Peptide > 93489 pg/mL (0-125) H Total Protein 5.3 G/DL (6.4-8.2) L Albumin 2.0 G/DL (3.4-5.0) L Globulin 3.3 g/dL Albumin/Globulin Ratio 0.6 (1.0-2.7) L Random Vancomycin Level 16.2 ug/mL Darius Watson MD Aug 16, 2018 10:57
--- NOTE | 2018-08-16 11:23 | General Surgery Progress Note ---
General Surgery-Progress Note Subjective Procedure Performed right internal jugular central venous catheter insertion Additional Comments had BM then syncope, bradycardia, asystole. intubated, resuscitated, transferred to ICU. Objective Last 24 Hour Vital Signs Date Time Temp Pulse Resp B/P (MAP) Pulse Ox O2 Delivery O2 Flow Rate FiO2 08/16/18 11:00 75 20 129/61 (83) 100 08/16/18 10:53 76 20 100 Mechanical Ventilator 40 08/16/18 10:51 70 20 40 08/16/18 10:45 77 20 100 Mechanical Ventilator 40 08/16/18 10:00 73 20 137/69 (91) 100 08/16/18 09:00 76 20 118/64 (82) 100 08/16/18 08:36 87 20 40 08/16/18 08:25 84 140/62 08/16/18 08:00 Mechanical Ventilator 08/16/18 08:00 98.0 84 20 140/62 (88) 100 98.0 08/16/18 08:00 75 08/16/18 08:00 40 08/16/18 07:00 85 20 137/53 (81) 100 08/16/18 06:45 89 20 100 Mechanical Ventilator 40 08/16/18 06:42 81 20 40 08/16/18 06:40 82 20 100 Mechanical Ventilator 40 08/16/18 06:00 111/41 08/16/18 06:00 78 20 111/41 (64) 100 08/16/18 05:09 86 21 40 08/16/18 05:00 86 20 141/66 (91) 100 08/16/18 04:00 82 08/16/18 04:00 Mechanical Ventilator 08/16/18 04:00 97.9 83 20 118/58 (78) 100 97.9 08/16/18 04:00 60 08/16/18 03:09 85 20 100 Mechanical Ventilator 60 08/16/18 03:00 80 20 93/48 (63) 100 08/16/18 02:57 80 20 100 Mechanical Ventilator 60 08/16/18 02:55 80 20 100 08/16/18 02:00 77 20 89/42 (58) 100 08/16/18 01:00 84 20 120/70 (87) 100 08/16/18 00:56 77 20 100 08/16/18 00:00 Mechanical Ventilator 08/16/18 00:00 80 08/16/18 00:00 97.8 80 20 96/54 (68) 100 97.8 08/16/18 00:00 82 08/15/18 23:18 76 20 100 Mechanical Ventilator 100 08/15/18 23:11 82 20 99 Mechanical Ventilator 100 08/15/18 23:08 85 20 100 08/15/18 23:00 80 20 91/40 (57) 100 08/15/18 22:00 96/39 08/15/18 22:00 78 20 95/45 (62) 100 08/15/18 21:12 87 20 100 08/15/18 21:00 90 20 121/63 (82) 100 08/15/18 21:00 84 91/35 08/15/18 20:00 100 08/15/18 20:00 100 08/15/18 20:00 Mechanical Ventilator 08/15/18 20:00 97.8 82 20 107/43 (64) 100 97.8 08/15/18 20:00 85 08/15/18 19:11 84 22 100 Mechanical Ventilator 100 08/15/18 19:04 84 20 100 Mechanical Ventilator 100 08/15/18 19:02 83 20 100 08/15/18 19:00 83 21 91/46 (61) 95 08/15/18 18:00 91 19 75/43 (54) 100 08/15/18 17:00 121 27 98/50 (66) 100 08/15/18 16:55 137 29 100 08/15/18 16:40 100 08/15/18 16:00 Venturi Mask 08/15/18 16:00 97.7 97 20 107/49 (68) 97 97.7 08/15/18 16:00 14.0 55 08/15/18 15:29 87 08/15/18 14:58 92 18 98 Venturi Mask 14.0 55 08/15/18 14:48 90 20 93 Venturi Mask 14.0 55 08/15/18 14:08 124/59 08/15/18 12:00 92 08/15/18 12:00 14.0 55 08/15/18 12:00 97.7 90 19 129/56 (80) 96 97.7 08/15/18 12:00 Venturi Mask 08/15/18 11:57 Venturi Mask 08/15/18 11:55 Venturi Mask I&O Intake and Output 08/15/18 08/16/18 19:00 07:00 Intake Total 210 ml 110 ml Balance 210 ml 110 ml Intake Oral 100 ml IV Total 110 ml 110 ml # Bowel Movements 2 1 Dressing: dry Wound: clean, dry Drains: other Cardiovascular: RSR Respiratory: clear Abdomen: soft, flat, non-tender, present bowel sounds Extremities: no cyanosis Laboratory Tests Test 08/15/18 14:20 08/15/18 18:17 08/15/18 18:50 08/16/18 04:30 Prothrombin Time 13.6 SEC (9.30-11.50) H Prothromb Time International Ratio 1.3 (0.9-1.1) H Activated Partial Thromboplast Time 39 SEC (23-33) H Arterial Blood pH 7.431 (7.350-7.450) Arterial Blood Partial Pressure CO2 36.9 mmHg (35.0-45.0) Arterial Blood Partial Pressure O2 209.6 mmHg (75.0-100.0) H Arterial Blood HCO3 24.0 mmol/L (22.0-26.0) Arterial Blood Oxygen Saturation 98.6 % (95-100) Arterial Blood Base Excess -0.2 (-2-2) Ugo Test Positive Sodium Level 139 MMOL/L (136-145) 140 MMOL/L (136-145) Potassium Level 5.0 MMOL/L (3.5-5.1) 4.3 MMOL/L (3.5-5.1) Chloride Level 98 MMOL/L (98-107) 99 MMOL/L (98-107) Carbon Dioxide Level 27 MMOL/L (21-32) 27 MMOL/L (21-32) Anion Gap 14 mmol/L (5-15) 14 mmol/L (5-15) Blood Urea Nitrogen 83 mg/dL (7-18) H 87 mg/dL (7-18) H Creatinine 7.4 MG/DL (0.55-1.30) H 8.0 MG/DL (0.55-1.30) H Estimat Glomerular Filtration Rate mL/min (>60) mL/min (>60) Glucose Level 143 MG/DL (74-106) H 110 MG/DL (74-106) H Calcium Level 9.0 MG/DL (8.5-10.1) 8.3 MG/DL (8.5-10.1) L White Blood Count 12.7 K/UL (4.8-10.8) H Red Blood Count 1.90 M/UL (4.70-6.10) L Hemoglobin 6.7 G/DL (14.2-18.0) *L Hematocrit 19.4 % (42.0-52.0) L Mean Corpuscular Volume 102 FL (80-99) H Mean Corpuscular Hemoglobin 35.2 PG (27.0-31.0) H Mean Corpuscular Hemoglobin Concent 34.6 G/DL (32.0-36.0) Red Cell Distribution Width 12.6 % (11.6-14.8) Platelet Count 135 K/UL (150-450) L Mean Platelet Volume 6.7 FL (6.5-10.1) Neutrophils (%) (Auto) % (45.0-75.0) Lymphocytes (%) (Auto) % (20.0-45.0) Monocytes (%) (Auto) % (1.0-10.0) Eosinophils (%) (Auto) % (0.0-3.0) Basophils (%) (Auto) % (0.0-2.0) Differential Total Cells Counted 100 Neutrophils % (Manual) 87 % (45-75) H Lymphocytes % (Manual) 5 % (20-45) L Monocytes % (Manual) 8 % (1-10) Eosinophils % (Manual) 0 % (0-3) Basophils % (Manual) 0 % (0-2) Band Neutrophils 0 % (0-8) Platelet Estimate Decreased L Platelet Morphology Normal Hypochromasia 4+ Anisocytosis 1+ Macrocytosis 1+ Phosphorus Level 5.9 MG/DL (2.5-4.9) H Magnesium Level 2.1 MG/DL (1.8-2.4) Total Bilirubin 1.0 MG/DL (0.2-1.0) Aspartate Amino Transf (AST/SGOT) 107 U/L (15-37) H Alanine Aminotransferase (ALT/SGPT) 147 U/L (12-78) H Alkaline Phosphatase 106 U/L (46-116) Troponin I 3.948 ng/mL (0.000-0.056) C-Reactive Protein, Quantitative 23.5 mg/dL (0.00-0.90) H Pro-B-Type Natriuretic Peptide > 02090 pg/mL (0-125) H Total Protein 5.3 G/DL (6.4-8.2) L Albumin 2.0 G/DL (3.4-5.0) L Globulin 3.3 g/dL Albumin/Globulin Ratio 0.6 (1.0-2.7) L Random Vancomycin Level 16.2 ug/mL Plan Problems: (1) Acute exacerbation of CHF (congestive heart failure) (2) Acute respiratory failure Assessment & Plan: intubated awake but agitated on vent cont vent wean as tolerated line clean and in good positioning Ghanshyam Quintanilla Aug 16, 2018 11:23
--- NOTE | 2018-08-16 13:07 | Emergency Room Report ---
History of Present Illness General Chief Complaint: Dyspnea/Respdistress Source: Patient, Medical Record, PMD Present Illness Allergies: Coded Allergies: BANANA (Verified Allergy, Severe, 08/12/18) GIL (Verified Allergy, Severe, 08/12/18) CARROT (Verified Allergy, Severe, 08/12/18) Dairy (Verified Allergy, Severe, 08/12/18) GRAPE (Verified Allergy, Severe, 08/12/18) Pork (Verified Allergy, Severe, 08/12/18) Potato (Verified Allergy, Severe, 08/12/18) Nursing Documentation-PMH Past Medical History: No History, Except For Hx Cardiac Problems: Yes Hx Hypertension: Yes Hx Pacemaker: No Hx Asthma: No Hx COPD: Yes Hx Diabetes: No Hx Cancer: No Hx Gastrointestinal Problems: Yes Hx Dialysis: Yes - T, TH, Sat History Of Psychiatric Problem: No Hx Neurological Problems: Yes Hx Cerebrovascular Accident: Yes Hx Dementia: Yes Hx Seizures: No Physical Exam Vital Signs Date Time Temp Pulse Resp B/P (MAP) Pulse Ox O2 Delivery O2 Flow Rate FiO2 08/12/18 08:24 98.0 86 22 130/67 88 Room Air 98.1 08/12/18 08:49 32 08/12/18 08:49 3.0 Procedures Critical Care Time Critical Care Time i. I feel this is a highly complex case requiring extensive working including EKG/Rhythm strip, Xray/CT/US, Blood/urine lab work, repeat exams while in ED, and administration of strong opiates/narcotics for pain control, admission to hospital or close patient follow up. Total time: 30 min bedside evaluation and treatment excludes procedures (EKG). Reason for critical care: cardiac arrest Possible complications: hypotension, hypertension, FL, shock, arrhythmias, metabolic acidosis, end organ damage, respiratory failure. Interventions: intubation, ACLS, compressions Course: Patient refused dialysis today. Became bradycardic. PEA. Chest compressions started. Given epi 1. Given calcium and bicarbonate. Intubated. Pulses resumed. Patient moved to ICU. Consultations: nursing staff, EMS, family Performed by: Dr Tracey Tolerated well condition = critical j. because of unstable vital signs this patient had a condition that could potentially threaten life or limb. I feel this is a critical patient who required my full attention while patient was considered critical. Total Critical Care Time excluding procedures was greater than 35 minutes CPR/Code Blue CPR/Code Blue Narrative see code blue for full narrative Intubation Intubation : Consent: Emergent Intubation Method: orotracheal Tube Size (cm): 7.5 Breath Sounds after Intubation: equal Post Intubation Xray: Yes Attempts: One Patient Tolerated: Well Complications: None Medical Decision Making Diagnostic Impression: Primary Impression: Acute exacerbation of CHF (congestive heart failure) Additional Impressions: Coagulopathy Pneumonia ER Course I was called to the stepdown unit for this CODE BLUE. Patient became bradycardic and then unresponsive. Patient has history of end-stage renal disease but refused dialysis. Chest compressions started. Given epi 1. Given calcium and sodium bicarbonate. Pulses regained. Patient intubated. Admitting physician informed. Prognosis is critical Last Vital Signs Date Time Temp Pulse Resp B/P (MAP) Pulse Ox O2 Delivery O2 Flow Rate FiO2 08/16/18 12:47 Endotracheal Tube 40 08/16/18 11:00 75 20 129/61 (83) 100 08/16/18 08:00 98.0 98.0 08/15/18 16:00 14.0 Status: improved Disposition: ADMITTED INPATIENT Condition: Critical Referrals: Ady Gómez MD (PCP) Lj Tracey MD Aug 16, 2018 13:07
--- NOTE | 2018-08-16 13:57 | General Progress Note ---
Assessment/Plan Problem List: (1) Respiratory arrest ICD Codes: R09.2 - Respiratory arrest SNOMED: 21565143 (2) Aspiration pneumonia ICD Codes: J69.0 - Pneumonitis due to inhalation of food and vomit SNOMED: 189404891 (3) Hemoptysis ICD Codes: R04.2 - Hemoptysis SNOMED: 53121795 (4) ESRD (end stage renal disease) on dialysis ICD Codes: N18.6 - End stage renal failure on dialysis; Z99.2 - Dependence on renal dialysis SNOMED: 496903401 (5) Hypertension ICD Codes: I10 - Hypertension SNOMED: 40606707 (6) Cardiac ischemia ICD Codes: I25.9 - Chronic ischemic heart disease, unspecified SNOMED: 815154175 Status: unchanged Assessment/Plan transfude 2 units- HD today- in process - tolerating well. refused HD 08/15 by patient despite of mediation by family vent support Sedation as needed kayexelate for high K as needed watch for Anemia FFP and Vit K given 08/13 2 D echo Cardiomyopathy Cardiology eval noted- discussed with Dr Thakkar Anti platelets / Anti coag / Cardiac Cath... Subjective ROS Limited/Unobtainable: Yes Allergies: Coded Allergies: BANANA (Verified Allergy, Severe, 08/12/18) GIL (Verified Allergy, Severe, 08/12/18) CARROT (Verified Allergy, Severe, 08/12/18) Dairy (Verified Allergy, Severe, 08/12/18) GRAPE (Verified Allergy, Severe, 08/12/18) Pork (Verified Allergy, Severe, 08/12/18) Potato (Verified Allergy, Severe, 08/12/18) Objective Last 24 Hour Vital Signs Date Time Temp Pulse Resp B/P (MAP) Pulse Ox O2 Delivery O2 Flow Rate FiO2 08/16/18 12:47 Endotracheal Tube 40 08/16/18 11:00 75 20 129/61 (83) 100 08/16/18 10:53 76 20 100 Mechanical Ventilator 40 08/16/18 10:51 70 20 40 08/16/18 10:45 77 20 100 Mechanical Ventilator 40 08/16/18 10:00 73 20 137/69 (91) 100 08/16/18 09:00 76 20 118/64 (82) 100 08/16/18 08:36 87 20 40 08/16/18 08:25 84 140/62 08/16/18 08:00 Mechanical Ventilator 08/16/18 08:00 98.0 84 20 140/62 (88) 100 98.0 08/16/18 08:00 75 08/16/18 08:00 40 08/16/18 07:00 85 20 137/53 (81) 100 08/16/18 06:45 89 20 100 Mechanical Ventilator 40 08/16/18 06:42 81 20 40 08/16/18 06:40 82 20 100 Mechanical Ventilator 40 08/16/18 06:00 111/41 08/16/18 06:00 78 20 111/41 (64) 100 08/16/18 05:09 86 21 40 08/16/18 05:00 86 20 141/66 (91) 100 08/16/18 04:00 82 08/16/18 04:00 Mechanical Ventilator 08/16/18 04:00 97.9 83 20 118/58 (78) 100 97.9 08/16/18 04:00 60 08/16/18 03:09 85 20 100 Mechanical Ventilator 60 08/16/18 03:00 80 20 93/48 (63) 100 08/16/18 02:57 80 20 100 Mechanical Ventilator 60 08/16/18 02:55 80 20 100 08/16/18 02:00 77 20 89/42 (58) 100 08/16/18 01:00 84 20 120/70 (87) 100 08/16/18 00:56 77 20 100 08/16/18 00:00 Mechanical Ventilator 08/16/18 00:00 80 08/16/18 00:00 97.8 80 20 96/54 (68) 100 97.8 08/16/18 00:00 82 08/15/18 23:18 76 20 100 Mechanical Ventilator 100 08/15/18 23:11 82 20 99 Mechanical Ventilator 100 08/15/18 23:08 85 20 100 08/15/18 23:00 80 20 91/40 (57) 100 08/15/18 22:00 96/39 08/15/18 22:00 78 20 95/45 (62) 100 08/15/18 21:12 87 20 100 08/15/18 21:00 90 20 121/63 (82) 100 08/15/18 21:00 84 91/35 08/15/18 20:00 100 08/15/18 20:00 100 08/15/18 20:00 Mechanical Ventilator 08/15/18 20:00 97.8 82 20 107/43 (64) 100 97.8 08/15/18 20:00 85 08/15/18 19:11 84 22 100 Mechanical Ventilator 100 08/15/18 19:04 84 20 100 Mechanical Ventilator 100 08/15/18 19:02 83 20 100 08/15/18 19:00 83 21 91/46 (61) 95 08/15/18 18:00 91 19 75/43 (54) 100 08/15/18 17:00 121 27 98/50 (66) 100 08/15/18 16:55 137 29 100 08/15/18 16:40 100 08/15/18 16:00 Venturi Mask 08/15/18 16:00 97.7 97 20 107/49 (68) 97 97.7 08/15/18 16:00 14.0 55 08/15/18 15:29 87 08/15/18 14:58 92 18 98 Venturi Mask 14.0 55 08/15/18 14:48 90 20 93 Venturi Mask 14.0 55 08/15/18 14:08 124/59 Intake and Output 08/15/18 08/16/18 18:59 06:59 Intake Total 210 ml 110 ml Balance 210 ml 110 ml Intake Oral 100 ml IV Total 110 ml 110 ml # Bowel Movements 2 1 Laboratory Tests 08/15/18 14:20: Prothrombin Time 13.6H, Prothromb Time International Ratio 1.3H, Activated Partial Thromboplast Time 39H 08/15/18 18:17: Arterial Blood pH 7.431, Arterial Blood Partial Pressure CO2 36.9, Arterial Blood Partial Pressure O2 209.6H, Arterial Blood HCO3 24.0, Arterial Blood Oxygen Saturation 98.6, Arterial Blood Base Excess -0.2, Ugo Test Positive 08/15/18 18:50: Sodium Level 139, Potassium Level 5.0, Chloride Level 98, Carbon Dioxide Level 27, Anion Gap 14, Blood Urea Nitrogen 83H, Creatinine 7.4H, Estimat Glomerular Filtration Rate , Glucose Level 143H, Calcium Level 9.0 08/16/18 04:30: Sodium Level 140, Potassium Level 4.3, Chloride Level 99, Carbon Dioxide Level 27, Anion Gap 14, Blood Urea Nitrogen 87H, Creatinine 8.0H, Estimat Glomerular Filtration Rate , Glucose Level 110H, Calcium Level 8.3L, White Blood Count 12.7H, Red Blood Count 1.90L, Hemoglobin 6.7*L, Hematocrit 19.4L, Mean Corpuscular Volume 102H, Mean Corpuscular Hemoglobin 35.2H, Mean Corpuscular Hemoglobin Concent 34.6, Red Cell Distribution Width 12.6, Platelet Count 135L, Mean Platelet Volume 6.7, Neutrophils (%) (Auto) , Lymphocytes (%) (Auto) , Monocytes (%) (Auto) , Eosinophils (%) (Auto) , Basophils (%) (Auto) , Differential Total Cells Counted 100, Neutrophils % (Manual) 87H, Lymphocytes % (Manual) 5L, Monocytes % (Manual) 8, Eosinophils % (Manual) 0, Basophils % ( Manual) 0, Band Neutrophils 0, Platelet Estimate DecreasedL, Platelet Morphology Normal, Hypochromasia 4+, Anisocytosis 1+, Macrocytosis 1+, Phosphorus Level 5.9H, Magnesium Level 2.1, Total Bilirubin 1.0, Aspartate Amino Transf (AST/SGOT) 107H, Alanine Aminotransferase (ALT/SGPT) 147H, Alkaline Phosphatase 106, Troponin I 3.948H, C-Reactive Protein, Quantitative 23.5H, Pro-B-Type Natriuretic Peptide > 03322G, Total Protein 5.3L, Albumin 2.0L , Globulin 3.3, Albumin/Globulin Ratio 0.6L, Random Vancomycin Level 16.2 Height (Feet): 5 Height (Inches): 8.00 Weight (Pounds): 132 EENT: other - vented Cardiovascular: normal rate Respiratory/Chest: decreased breath sounds Abdomen: distended Ady Gómez MD Aug 16, 2018 13:57
[2018-08-16] MEDS ORDERED: Heparin 25,000u/D5W 500ml 500 ML IV SCH (16:00)
--- NOTE | 2018-08-16 17:12 | Diagnostic Imaging Report ---
Indications: Reason For Exam: DYSPHAGIA Technique: Patient ingested multiple substances under the supervision of speech pathology. Video fluoroscopic recording performed. Total fluoroscopy time 228 seconds. Total dose area product 0.47023 mGycm2 Comparison: none Findings: Occasional slight penetration of thin liquid barium demonstrated. The remaining substances, no evidence of aspiration or penetration. Minimal delayed pooling of the thicker substances in the vallecula. Impression: Positive for penetration of thin liquid barium. Negative for aspiration Please refer to speech pathology report for more detailed analysis
--- NOTE | 2018-08-16 18:30 | Infectious Diseases Prog Note ---
Assessment/Plan Problems: (1) HCAP (healthcare-associated pneumonia) Assessment & Plan: S/P code , suspect aspiration related , continue zosyn and vancomycin empirically for now , await repeated sputum culture , aspiration precaution and keep HOB > 30 degree (2) Acute respiratory failure Assessment & Plan: due to the above, S/P code , now intubated on mechanical ventilation , continue inhalers , monitor CXR (3) Coagulopathy Assessment & Plan: resolved now back on anticoagulation due to KS , monitor INR, cardiology is following (4) Hemoptysis Assessment & Plan: due to the above , improving , monitor H/H , transfuse blood as needed, monitor CXR . (5) ESRD (end stage renal disease) on dialysis Assessment & Plan: on HD , renal is following (6) Cardiac ischemia Assessment & Plan: with elevated troponin , back on anticoagulation, cardiology is following Subjective ROS Limited/Unobtainable: Yes Allergies: Coded Allergies: BANANA (Verified Allergy, Severe, 08/12/18) GIL (Verified Allergy, Severe, 08/12/18) CARROT (Verified Allergy, Severe, 08/12/18) Dairy (Verified Allergy, Severe, 08/12/18) GRAPE (Verified Allergy, Severe, 08/12/18) Pork (Verified Allergy, Severe, 08/12/18) Potato (Verified Allergy, Severe, 08/12/18) Subjective he is intubated on mechanical ventilation , comfortable in ICU , awake and comfortable Objective Vital Signs Last 24 Hour Vital Signs Date Time Temp Pulse Resp B/P (MAP) Pulse Ox O2 Delivery O2 Flow Rate FiO2 08/16/18 18:00 87 20 139/48 (78) 99 08/16/18 17:00 84 20 133/64 (87) 100 08/16/18 16:56 85 20 40 08/16/18 16:00 88 08/16/18 16:00 40 08/16/18 16:00 Mechanical Ventilator 08/16/18 16:00 98.0 81 20 117/55 (75) 100 98.0 08/16/18 15:00 89 19 149/77 (101) 100 08/16/18 14:57 Mechanical Ventilator 40 08/16/18 14:57 Mechanical Ventilator 40 08/16/18 14:56 89 20 40 08/16/18 14:47 Endotracheal Tube 10/19/18 14:00 133/47 08/16/18 14:00 87 20 139/48 (78) 100 08/16/18 13:02 87 20 40 08/16/18 13:00 83 20 120/68 (85) 100 08/16/18 12:47 Endotracheal Tube 40 08/16/18 12:00 40 08/16/18 12:00 78 08/16/18 12:00 Mechanical Ventilator 08/16/18 12:00 97.9 83 20 152/71 (98) 100 97.9 08/16/18 11:00 75 20 129/61 (83) 100 08/16/18 10:53 76 20 100 Mechanical Ventilator 40 08/16/18 10:51 70 20 40 08/16/18 10:45 77 20 100 Mechanical Ventilator 40 08/16/18 10:00 73 20 137/69 (91) 100 08/16/18 09:00 76 20 118/64 (82) 100 08/16/18 08:36 87 20 40 08/16/18 08:25 84 140/62 08/16/18 08:00 Mechanical Ventilator 08/16/18 08:00 98.0 84 20 140/62 (88) 100 98.0 08/16/18 08:00 75 08/16/18 08:00 40 08/16/18 07:00 85 20 137/53 (81) 100 08/16/18 06:45 89 20 100 Mechanical Ventilator 40 08/16/18 06:42 81 20 40 08/16/18 06:40 82 20 100 Mechanical Ventilator 40 08/16/18 06:00 111/41 08/16/18 06:00 78 20 111/41 (64) 100 08/16/18 05:09 86 21 40 08/16/18 05:00 86 20 141/66 (91) 100 08/16/18 04:00 82 08/16/18 04:00 Mechanical Ventilator 08/16/18 04:00 97.9 83 20 118/58 (78) 100 97.9 08/16/18 04:00 60 08/16/18 03:09 85 20 100 Mechanical Ventilator 60 08/16/18 03:00 80 20 93/48 (63) 100 08/16/18 02:57 80 20 100 Mechanical Ventilator 60 08/16/18 02:55 80 20 100 08/16/18 02:00 77 20 89/42 (58) 100 08/16/18 01:00 84 20 120/70 (87) 100 08/16/18 00:56 77 20 100 08/16/18 00:00 Mechanical Ventilator 08/16/18 00:00 80 08/16/18 00:00 97.8 80 20 96/54 (68) 100 97.8 08/16/18 00:00 82 08/15/18 23:18 76 20 100 Mechanical Ventilator 100 08/15/18 23:11 82 20 99 Mechanical Ventilator 100 08/15/18 23:08 85 20 100 08/15/18 23:00 80 20 91/40 (57) 100 08/15/18 22:00 96/39 08/15/18 22:00 78 20 95/45 (62) 100 08/15/18 21:12 87 20 100 08/15/18 21:00 90 20 121/63 (82) 100 08/15/18 21:00 84 91/35 08/15/18 20:00 100 08/15/18 20:00 100 08/15/18 20:00 Mechanical Ventilator 08/15/18 20:00 97.8 82 20 107/43 (64) 100 97.8 08/15/18 20:00 85 08/15/18 19:11 84 22 100 Mechanical Ventilator 100 08/15/18 19:04 84 20 100 Mechanical Ventilator 100 08/15/18 19:02 83 20 100 08/15/18 19:00 83 21 91/46 (61) 95 Height (Feet): 5 Height (Inches): 8.00 Weight (Pounds): 132 General Appearance: WD/WN, no acute distress, cachetic HEENT: normocephalic, atraumatic, anicteric, mucous membranes moist, PERRL Respiratory/Chest: chest wall non-tender, no respiratory distress, no accessory muscle use, decreased breath sounds, crackles/rales Cardiovascular: normal peripheral pulses, normal rate, regularly irregular, no gallop/murmur, no JVD Abdomen: normal bowel sounds, soft, non tender, no organomegaly, non distended , no mass, no scars Genitourinary: normal external genitalia Extremities: no cyanosis, no clubbing Skin: no rash, no lesions, no ulcers Neurologic/Psychiatric: alert, unresponsiveness, other - intubated on mechanical ventilation Lymphatic: no neck adenopathy, no groin adenopathy Microbiology Date/Time Source Procedure Growth Status 08/15/18 17:50 Sputum Expectorated Gram Stain - Final Resulted 08/15/18 17:50 Sputum Expectorated Sputum Culture Pending Resulted Laboratory Tests Test 08/15/18 18:50 08/16/18 04:30 Sodium Level 139 MMOL/L (136-145) 140 MMOL/L (136-145) Potassium Level 5.0 MMOL/L (3.5-5.1) 4.3 MMOL/L (3.5-5.1) Chloride Level 98 MMOL/L (98-107) 99 MMOL/L (98-107) Carbon Dioxide Level 27 MMOL/L (21-32) 27 MMOL/L (21-32) Anion Gap 14 mmol/L (5-15) 14 mmol/L (5-15) Blood Urea Nitrogen 83 mg/dL (7-18) H 87 mg/dL (7-18) H Creatinine 7.4 MG/DL (0.55-1.30) H 8.0 MG/DL (0.55-1.30) H Estimat Glomerular Filtration Rate mL/min (>60) mL/min (>60) Glucose Level 143 MG/DL (74-106) H 110 MG/DL (74-106) H Calcium Level 9.0 MG/DL (8.5-10.1) 8.3 MG/DL (8.5-10.1) L White Blood Count 12.7 K/UL (4.8-10.8) H Red Blood Count 1.90 M/UL (4.70-6.10) L Hemoglobin 6.7 G/DL (14.2-18.0) *L Hematocrit 19.4 % (42.0-52.0) L Mean Corpuscular Volume 102 FL (80-99) H Mean Corpuscular Hemoglobin 35.2 PG (27.0-31.0) H Mean Corpuscular Hemoglobin Concent 34.6 G/DL (32.0-36.0) Red Cell Distribution Width 12.6 % (11.6-14.8) Platelet Count 135 K/UL (150-450) L Mean Platelet Volume 6.7 FL (6.5-10.1) Neutrophils (%) (Auto) % (45.0-75.0) Lymphocytes (%) (Auto) % (20.0-45.0) Monocytes (%) (Auto) % (1.0-10.0) Eosinophils (%) (Auto) % (0.0-3.0) Basophils (%) (Auto) % (0.0-2.0) Differential Total Cells Counted 100 Neutrophils % (Manual) 87 % (45-75) H Lymphocytes % (Manual) 5 % (20-45) L Monocytes % (Manual) 8 % (1-10) Eosinophils % (Manual) 0 % (0-3) Basophils % (Manual) 0 % (0-2) Band Neutrophils 0 % (0-8) Platelet Estimate Decreased L Platelet Morphology Normal Hypochromasia 4+ Anisocytosis 1+ Macrocytosis 1+ Phosphorus Level 5.9 MG/DL (2.5-4.9) H Magnesium Level 2.1 MG/DL (1.8-2.4) Total Bilirubin 1.0 MG/DL (0.2-1.0) Aspartate Amino Transf (AST/SGOT) 107 U/L (15-37) H Alanine Aminotransferase (ALT/SGPT) 147 U/L (12-78) H Alkaline Phosphatase 106 U/L (46-116) Troponin I 3.948 ng/mL (0.000-0.056) C-Reactive Protein, Quantitative 34.5 mg/dL (0.00-0.90) H Pro-B-Type Natriuretic Peptide > 54698 pg/mL (0-125) H Total Protein 5.3 G/DL (6.4-8.2) L Albumin 2.0 G/DL (3.4-5.0) L Globulin 3.3 g/dL Albumin/Globulin Ratio 0.6 (1.0-2.7) L Random Vancomycin Level 16.2 ug/mL Current Medications Medications (Trade) Dose Ordered Sig/Kris Route PRN Reason Start Time Stop Time Status Last Admin Dose Admin Acetaminophen (Tylenol) 650 mg Q4H PRN ORAL pain and Temp of 100 F 08/15/18 17:00 09/11/18 16:59 Albuterol Sulfate (Proventil) 2.5 mg Q4HRT HHN 08/15/18 19:00 08/17/18 14:59 10/19/18 10:53 Chlorhexidine Gluconate (Anni-Hex 2%) 1 applic DAILY@2000 TOPIC 08/15/18 20:00 08/17/18 23:59 08/15/18 20:20 Docusate Sodium (Colace) 100 mg THREE TIMES A DAY ORAL 08/15/18 18:00 09/11/18 12:59 08/16/18 13:59 Epoetin Issa (Procrit (for ESRD on dialysis)) 10,000 units SUN-SUN-SUN SUBQ 08/16/18 21:00 09/11/18 20:59 Hydralazine HCl (Apresoline) 25 mg Q8HR ORAL 08/15/18 22:00 09/11/18 13:59 08/16/18 14:00 Lorazepam (Ativan 2mg/ml 1ml) 2 mg Q4H PRN IV Agitation 08/16/18 14:00 08/22/18 17:29 08/16/18 15:16 Metoprolol Tartrate (Lopressor) 12.5 mg Q12HR ORAL 08/15/18 21:00 09/14/18 20:59 08/16/18 08:25 Morphine Sulfate (Morphine Sulfate) 4 mg Q4H PRN IVP For Pain 08/15/18 17:30 08/22/18 17:29 Ondansetron HCl (Zofran) 4 mg Q6H PRN IVP Nausea & Vomiting 08/15/18 17:00 09/11/18 16:59 Pantoprazole (Protonix) 40 mg EVERY 12 HOURS IVP 08/15/18 21:00 09/14/18 20:59 08/16/18 08:23 Piperacillin Sod/ Tazobactam Sod 2.25 gm/Dextrose 55 ml @ 110 mls/hr Q8H IVPB 08/15/18 18:00 08/19/18 17:59 08/16/18 09:46 Vancomycin HCl (Vanco rx to dose) 1 ea DAILY PRN MISC Per rx protocol 08/15/18 17:30 09/14/18 17:29 Donte Null M.D. Aug 16, 2018 18:30
[2018-08-16] MEDS: Dyna-Hex 2% Top Sol 2oz TOPIC SCH (19:40)
[2018-08-16] MEDS ORDERED: Epogen (for ESRD on dialysis) SUBQ SCH (21:00)
[2018-08-16] MEDS: Epogen (for ESRD on dialysis) SUBQ SCH (21:04)
[2018-08-16] MEDS: Morphine Sulfate 4mg/ml Inj (IV/IM USE ONLY) IVP PRN (23:24)
[2018-08-17] VITALS (24 sets, daily range): BP systolic 105–190; BP diastolic 44–68
[2018-08-17] MEDS: Piperacillin/Tazobactam 2.25 GM in D5W 55 ML IVPB SCH ×3 (01:34→18:15)
[2018-08-17] MEDS: Albuterol ud Inhalation HHN SCH ×4 (03:23→14:39)
[2018-08-17 04:39] LABS: BASOPHILS % (AUTO) 0.4 % (0.0-2.0); EOSINOPHILS % (AUTO) 1.8 % (0.0-3.0); HEMATOCRIT 27.6 % (42.0-52.0); HEMOGLOBIN 9.6 G/DL (14.2-18.0); LYMPHOCYTES % (AUTO) 7.3 % (20.0-45.0); MEAN CORPUSCULAR VOLUME 94 FL (80-99); NEUTROPHILS % (AUTO) 83.5 % (45.0-75.0); PLATELET COUNT 154 K/UL (150-450); RED BLOOD COUNT 2.94 M/UL (4.70-6.10); RED CELL DISTRIBUTION WIDTH 16.7 % (11.6-14.8); WHITE BLOOD COUNT 11.5 K/UL (4.8-10.8)
[2018-08-17 05:11] LABS: ALANINE AMINOTRANSFERASE 125 U/L (12-78); ALBUMIN/GLOBULIN RATIO 0.6 (1.0-2.7); ALKALINE PHOSPHATASE 124 U/L (46-116); ANION GAP 13 mmol/L (5-15); ASPARTATE AMINO TRANSFERASE 73 U/L (15-37); BILIRUBIN,TOTAL 1.3 MG/DL (0.2-1.0); BLOOD UREA NITROGEN 51 mg/dL (7-18); CALCIUM 8.2 MG/DL (8.5-10.1); CARBON DIOXIDE 29 MMOL/L (21-32); CHLORIDE 100 MMOL/L (98-107); CREATININE 5.7 MG/DL (0.55-1.30); PHOSPHORUS 3.5 MG/DL (2.5-4.9); SODIUM 142 MMOL/L (136-145)
[2018-08-17 05:18] LABS: POTASSIUM 2.7 MMOL/L (3.5-5.1)
[2018-08-17 05:22] LABS: BILIRUBIN,DIRECT 0.5 MG/DL (0.0-0.3)
[2018-08-17] MEDS: HydrALAZINE 25mg tab ORAL SCH ×3 (06:00→22:11)
--- NOTE | 2018-08-17 06:33 | Pulmonolgy Critical Care Note ---
Critical Care - Asmt/Plan Assessment/Plan: ASSESSMENT Acute respiratory failure, requiring intubation Status post cardiopulmonary arrest 08/15 Healthcare associated pneumonia Likely aspiration pneumonia COPD Interstitial lung disease Coagulopathy, corrected NSTEMI Paroxysmal atrial fibrillation Cardiomyopathy Pericardial effusion( increased in size from 2017) Right atrium collapse( no change from 2017) End-stage renal disease ,on hemodialysis Diabetes mellitus Anemia of chronic /kidney disease, s/p blood transfusion Dementia Transaminitis Protein calorie malnutrition PLAN of CARE ICU status Vent support ; pulmonary toilet daily CXR and ABG ; titrate settings and wean as tolerated off heparin drip 2 to bloody secretions was on aspirin, dc due to severe anemia cardio follows on beta umair with close monitoring of heart rate , currently stable per cardiology discussion with family , son declined cardiac cath/angiogram need to f/up with ECHO as per cardio BP management with current regimen abx, ID follows blood and sputum cx negative, influenza screen test negative HD as per nephro with close monitoring of renal parameters and electrolytes, correct e/lytes as needed - per nephro( given HD status) coagulopathy corrected ; s/p 4 u FFP and vit K monitor H&H with goal to keep Hg above 7 , s/p 2 u PRBC 08/16 anemia w/up c/w anemia of chronic disease, on EPO BS with SSI, HgA1c- A1c 5.4 BSSE and VSSE done, diet for quality of life currently NGT with strict aspiration/ reflux precautions dietary eval re supplements monitor LFT supportive care bowel regimen case discussed and evaluated by supervising physician Critical Care - Objective Last 24 Hour Vital Signs Date Time Temp Pulse Resp B/P (MAP) Pulse Ox O2 Delivery O2 Flow Rate FiO2 08/17/18 06:00 82 20 110/52 (71) 97 08/17/18 06:00 110/52 08/17/18 05:20 83 20 40 08/17/18 05:00 82 20 119/50 (73) 97 08/17/18 04:00 78 08/17/18 04:00 97.9 81 20 122/50 (74) 97 97.9 08/17/18 04:00 40 08/17/18 04:00 Mechanical Ventilator 08/17/18 03:33 69 20 100 Mechanical Ventilator 40 08/17/18 03:23 77 20 97 Mechanical Ventilator 40 08/17/18 03:23 77 20 40 08/17/18 03:00 81 20 126/51 (76) 99 08/17/18 02:00 77 20 124/50 (74) 99 08/17/18 01:15 88 20 40 08/17/18 01:00 81 20 126/52 (76) 99 08/17/18 00:00 Mechanical Ventilator 08/17/18 00:00 79 08/17/18 00:00 98.0 74 20 105/55 (72) 99 98.0 08/17/18 00:00 40 08/16/18 23:54 98.0 08/16/18 23:25 93 20 99 Mechanical Ventilator 40 08/16/18 23:24 98.0 08/16/18 23:15 93 20 99 Mechanical Ventilator 40 08/16/18 23:15 93 20 40 08/16/18 23:00 86 20 138/62 (87) 99 08/16/18 22:00 119/72 08/16/18 22:00 92 20 116/55 (75) 99 08/16/18 21:05 95 20 40 08/16/18 21:04 94 126/53 08/16/18 21:00 96 20 126/53 (77) 99 08/16/18 20:00 40 08/16/18 20:00 97.9 85 20 132/50 (77) 97 97.9 08/16/18 20:00 Mechanical Ventilator 08/16/18 20:00 97 08/16/18 19:36 90 20 100 Mechanical Ventilator 40 08/16/18 19:26 98 21 40 08/16/18 19:26 98 21 99 Mechanical Ventilator 40 08/16/18 19:00 85 20 139/48 (78) 99 08/16/18 18:00 87 20 139/48 (78) 99 08/16/18 17:00 84 20 133/64 (87) 100 08/16/18 16:56 85 20 40 08/16/18 16:00 88 08/16/18 16:00 40 08/16/18 16:00 Mechanical Ventilator 08/16/18 16:00 98.0 81 20 117/55 (75) 100 98.0 08/16/18 15:00 89 19 149/77 (101) 100 08/16/18 14:57 Mechanical Ventilator 40 08/16/18 14:57 Mechanical Ventilator 40 08/16/18 14:56 89 20 40 08/16/18 14:47 Endotracheal Tube 08/16/18 14:00 133/47 08/16/18 14:00 87 20 139/48 (78) 100 08/16/18 13:02 87 20 40 08/16/18 13:00 83 20 120/68 (85) 100 08/16/18 12:47 Endotracheal Tube 40 08/16/18 12:00 40 08/16/18 12:00 78 08/16/18 12:00 Mechanical Ventilator 08/16/18 12:00 97.9 83 20 152/71 (98) 100 97.9 08/16/18 11:00 75 20 129/61 (83) 100 08/16/18 10:53 76 20 100 Mechanical Ventilator 40 08/16/18 10:51 70 20 40 08/16/18 10:45 77 20 100 Mechanical Ventilator 40 08/16/18 10:00 73 20 137/69 (91) 100 08/16/18 09:00 76 20 118/64 (82) 100 08/16/18 08:36 87 20 40 08/16/18 08:25 84 140/62 08/16/18 08:00 Mechanical Ventilator 08/16/18 08:00 98.0 84 20 140/62 (88) 100 98.0 08/16/18 08:00 75 08/16/18 08:00 40 08/16/18 07:00 85 20 137/53 (81) 100 08/16/18 06:45 89 20 100 Mechanical Ventilator 40 08/16/18 06:42 81 20 40 08/16/18 06:40 82 20 100 Mechanical Ventilator 40 Status: sedated, other - intubated Condition: critical HEENT: atraumatic, normocephalic, other - OP with ET in place, intact, NGT with TF Lungs: other - BS clear overall, few isolated crackles at bases Heart: HR/BP stable Abdomen: soft, non-tender, active bowel sounds Extremities: no C/C/E Micro: Microbiology Date/Time Source Procedure Growth Status 08/15/18 17:50 Sputum Expectorated Gram Stain - Final Resulted 08/15/18 17:50 Sputum Expectorated Sputum Culture Pending Resulted Critical Care - Subjective ROS Limited/Unobtainable: Yes Interval Events: remains intubated no signs of resp distress on current settings s/p 2 u PRBC 08/16 mild leukocytosis, afebrile troponin down to 2.47 K-2.7 Condition: critical EKG Rhythm: Sinus Rhythm FI02: 40 Vent Support Breath Rate: 20 Vent Support Mode: AC Vent Tidal Volume: 600 Sputum Amount: Small PEEP: 0.0 PIP: 35 Tube Feeding Amount: 40 I&O: Intake and Output 08/16/18 08/17/18 19:00 07:00 Intake Total 960.562 ml 375 ml Output Total 2000 ml 0 ml Balance -1039.438 ml 375 ml Free Water 30 ml IV Total 330.562 ml 55 ml Tube Feeding 80 ml 290 ml Blood Product 550 ml Output Urine Total 0 ml 0 ml Hemodialysis UF 2000 ml # Bowel Movements 2 3 CXR: 08/16 Slightly improved but still extensive bilateral interstitial and airspace disease, over one day. ET-Tube: 7.0 ET Position: 22 Breonna John NP Aug 17, 2018 06:33
[2018-08-17] MEDS ORDERED: Albuterol/Ipratropium 3ml neb HHN PRN (06:45)
[2018-08-17] MEDS: Docusate 100mg cap ORAL SCH ×3 (08:17→18:00)
[2018-08-17] MEDS: Pantoprazole Inj IVP SCH ×2 (09:20→20:39)
[2018-08-17] MEDS: Metoprolol Tartrate 12.5mg TAB ORAL SCH (09:21)
--- NOTE | 2018-08-17 09:31 | Diagnostic Imaging Report ---
EXAM: XR Chest, 1 View CLINICAL HISTORY: DYSPNEA TECHNIQUE: Frontal view of the chest. COMPARISON: Chest x-ray 08/16/18 at 754 FINDINGS: Lungs: Diffuse bilateral interstitial and airspace opacities are similar to minimally improved. Pleural space: Tiny pleural effusions are stable. No pneumothorax. Heart: Cardiomegaly. Mediastinum: Unremarkable. Bones/joints: Unremarkable. Tubes, lines and devices: Endotracheal tube and right IJ catheter are stable. NG tube tip in the proximal stomach. IMPRESSION: 1. Diffuse bilateral interstitial and airspace opacities are similar to minimally improved. 2. Tiny pleural effusions are stable.
[2018-08-17] MEDS: Morphine Sulfate 4mg/ml Inj (IV/IM USE ONLY) IVP PRN ×2 (14:06→23:03)
[2018-08-17] MEDS: LORazepam Inj 2mg/ml 1ml IV PRN (14:33)
--- NOTE | 2018-08-17 14:48 | Infectious Diseases Prog Note ---
Assessment/Plan Problems: (1) HCAP (healthcare-associated pneumonia) Assessment & Plan: S/P code , now intubated , suspect aspiration , continue zosyn and vancomycin empirically for now , await repeated sputum culture , aspiration precaution and keep HOB > 30 degree (2) Acute respiratory failure Assessment & Plan: due to the above, S/P code , now intubated on mechanical ventilation , continue inhalers , monitor CXR , pulmonary is following (3) Coagulopathy Assessment & Plan: resolved , off anticoagulation , monitor INR, cardiology is following (4) Hemoptysis Assessment & Plan: due to the above , improving , monitor H/H , transfuse blood as needed, monitor CXR . (5) ESRD (end stage renal disease) on dialysis Assessment & Plan: on HD , renal is following (6) Cardiac ischemia Assessment & Plan: with elevated troponin , now off anticoagulation, cardiology is following Subjective ROS Limited/Unobtainable: Yes Allergies: Coded Allergies: BANANA (Verified Allergy, Severe, 08/12/18) GIL (Verified Allergy, Severe, 08/12/18) CARROT (Verified Allergy, Severe, 08/12/18) Dairy (Verified Allergy, Severe, 08/12/18) GRAPE (Verified Allergy, Severe, 08/12/18) Pork (Verified Allergy, Severe, 08/12/18) Potato (Verified Allergy, Severe, 08/12/18) Subjective he is still intubated on mechanical ventilation , comfortable in ICU , sedated with morphine , unresponsive Objective Vital Signs Last 24 Hour Vital Signs Date Time Temp Pulse Resp B/P (MAP) Pulse Ox O2 Delivery O2 Flow Rate FiO2 08/17/18 14:10 100.0 08/17/18 14:06 98.2 08/17/18 14:00 Non-Rebreather 15.0 100 08/17/18 14:00 150/65 08/17/18 14:00 99 58 175/68 (103) 97 08/17/18 13:14 85 21 40 08/17/18 13:00 73 20 122/56 (78) 97 08/17/18 12:00 40 08/17/18 12:00 77 08/17/18 12:00 80 20 122/48 (72) 98 08/17/18 12:00 Mechanical Ventilator 08/17/18 11:14 74 20 100 Mechanical Ventilator 40 08/17/18 11:07 84 20 40 08/17/18 11:07 84 20 99 Mechanical Ventilator 40 08/17/18 11:00 84 20 116/48 (70) 98 08/17/18 10:00 89 20 113/46 (68) 98 08/17/18 09:21 89 141/57 08/17/18 09:01 81 20 40 08/17/18 09:00 98.2 87 20 141/46 (77) 98 98.2 08/17/18 08:00 76 08/17/18 08:00 Mechanical Ventilator 08/17/18 08:00 40 08/17/18 08:00 88 20 135/48 (77) 98 08/17/18 07:31 78 20 100 Mechanical Ventilator 40 08/17/18 07:21 81 20 99 Mechanical Ventilator 40 08/17/18 07:09 79 20 40 08/17/18 07:00 78 20 133/47 (75) 97 08/17/18 06:00 82 20 110/52 (71) 97 08/17/18 06:00 110/52 08/17/18 05:20 83 20 40 08/17/18 05:00 82 20 119/50 (73) 97 08/17/18 04:00 78 08/17/18 04:00 97.9 81 20 122/50 (74) 97 97.9 08/17/18 04:00 40 08/17/18 04:00 Mechanical Ventilator 08/17/18 03:33 69 20 100 Mechanical Ventilator 40 08/17/18 03:23 77 20 97 Mechanical Ventilator 40 08/17/18 03:23 77 20 40 08/17/18 03:00 81 20 126/51 (76) 99 08/17/18 02:00 77 20 124/50 (74) 99 08/17/18 01:15 88 20 40 08/17/18 01:00 81 20 126/52 (76) 99 08/17/18 00:00 Mechanical Ventilator 08/17/18 00:00 79 08/17/18 00:00 98.0 74 20 105/55 (72) 99 98.0 08/17/18 00:00 40 08/16/18 23:54 98.0 08/16/18 23:25 93 20 99 Mechanical Ventilator 40 08/16/18 23:24 98.0 08/16/18 23:15 93 20 99 Mechanical Ventilator 40 08/16/18 23:15 93 20 40 08/16/18 23:00 86 20 138/62 (87) 99 08/16/18 22:00 119/72 08/16/18 22:00 92 20 116/55 (75) 99 08/16/18 21:05 95 20 40 08/16/18 21:04 94 126/53 08/16/18 21:00 96 20 126/53 (77) 99 08/16/18 20:00 40 08/16/18 20:00 97.9 85 20 132/50 (77) 97 97.9 08/16/18 20:00 Mechanical Ventilator 08/16/18 20:00 97 08/16/18 19:36 90 20 100 Mechanical Ventilator 40 08/16/18 19:26 98 21 40 08/16/18 19:26 98 21 99 Mechanical Ventilator 40 08/16/18 19:00 85 20 139/48 (78) 99 08/16/18 18:00 87 20 139/48 (78) 99 08/16/18 17:00 84 20 133/64 (87) 100 08/16/18 16:56 85 20 40 08/16/18 16:00 88 08/16/18 16:00 40 08/16/18 16:00 Mechanical Ventilator 08/16/18 16:00 98.0 81 20 117/55 (75) 100 98.0 08/16/18 15:00 89 19 149/77 (101) 100 08/16/18 14:57 Mechanical Ventilator 40 08/16/18 14:57 Mechanical Ventilator 40 08/16/18 14:56 89 20 40 08/16/18 14:47 Endotracheal Tube Height (Feet): 5 Height (Inches): 8.00 Weight (Pounds): 130 General Appearance: WD/WN, no acute distress, cachetic HEENT: normocephalic, atraumatic, anicteric, no JVD, other - intubated Respiratory/Chest: chest wall non-tender, no respiratory distress, no accessory muscle use, decreased breath sounds, crackles/rales Cardiovascular: normal peripheral pulses, normal rate, regular rhythm, no gallop/murmur, no JVD Abdomen: normal bowel sounds, soft, non tender, no organomegaly, non distended , no mass, no scars Extremities: no cyanosis, no clubbing Skin: no rash, no lesions, no ulcers Neurologic/Psychiatric: unresponsiveness Lymphatic: no neck adenopathy, no groin adenopathy Musculoskeletal: normal muscle bulk, no effusion Microbiology Date/Time Source Procedure Growth Status 08/15/18 17:50 Sputum Expectorated Gram Stain - Final Resulted 08/15/18 17:50 Sputum Expectorated Sputum Culture - Preliminary NO GROWTH AFTER 24 HOURS Resulted Laboratory Tests Test 08/17/18 04:00 08/17/18 07:09 White Blood Count 11.5 K/UL (4.8-10.8) H Red Blood Count 2.94 M/UL (4.70-6.10) L Hemoglobin 9.6 G/DL (14.2-18.0) #L Hematocrit 27.6 % (42.0-52.0) #L Mean Corpuscular Volume 94 FL (80-99) Mean Corpuscular Hemoglobin 32.5 PG (27.0-31.0) H Mean Corpuscular Hemoglobin Concent 34.6 G/DL (32.0-36.0) Red Cell Distribution Width 16.7 % (11.6-14.8) H Platelet Count 154 K/UL (150-450) Mean Platelet Volume 7.2 FL (6.5-10.1) Neutrophils (%) (Auto) 83.5 % (45.0-75.0) H Lymphocytes (%) (Auto) 7.3 % (20.0-45.0) L Monocytes (%) (Auto) 7.0 % (1.0-10.0) Eosinophils (%) (Auto) 1.8 % (0.0-3.0) Basophils (%) (Auto) 0.4 % (0.0-2.0) Sodium Level 142 MMOL/L (136-145) Potassium Level 2.7 MMOL/L (3.5-5.1) *L Chloride Level 100 MMOL/L (98-107) Carbon Dioxide Level 29 MMOL/L (21-32) Anion Gap 13 mmol/L (5-15) Blood Urea Nitrogen 51 mg/dL (7-18) H Creatinine 5.7 MG/DL (0.55-1.30) H Estimat Glomerular Filtration Rate mL/min (>60) Glucose Level 102 MG/DL (74-106) Calcium Level 8.2 MG/DL (8.5-10.1) L Phosphorus Level 3.5 MG/DL (2.5-4.9) Magnesium Level 1.8 MG/DL (1.8-2.4) Total Bilirubin 1.3 MG/DL (0.2-1.0) H Direct Bilirubin 0.5 MG/DL (0.0-0.3) H Aspartate Amino Transf (AST/SGOT) 73 U/L (15-37) H Alanine Aminotransferase (ALT/SGPT) 125 U/L (12-78) H Alkaline Phosphatase 124 U/L (46-116) H Troponin I 2.474 ng/mL (0.000-0.056) Pro-B-Type Natriuretic Peptide > 33452 pg/mL (0-125) H Total Protein 5.5 G/DL (6.4-8.2) L Albumin 2.0 G/DL (3.4-5.0) L Globulin 3.5 g/dL Albumin/Globulin Ratio 0.6 (1.0-2.7) L Arterial Blood pH 7.617 (7.350-7.450) Arterial Blood Partial Pressure CO2 27.8 mmHg (35.0-45.0) L Arterial Blood Partial Pressure O2 104.4 mmHg (75.0-100.0) H Arterial Blood HCO3 27.7 mmol/L (22.0-26.0) H Arterial Blood Oxygen Saturation 97.4 % (95-100) Arterial Blood Base Excess 6.7 (-2-2) H Ugo Test Positive Current Medications Medications (Trade) Dose Ordered Sig/Kris Route PRN Reason Start Time Stop Time Status Last Admin Dose Admin Acetaminophen (Tylenol) 650 mg Q4H PRN ORAL pain and Temp of 100 F 08/15/18 17:00 09/11/18 16:59 Albuterol Sulfate (Proventil) 2.5 mg Q4HRT N 08/15/18 19:00 08/17/18 14:59 08/17/18 14:39 Albuterol/ Ipratropium (Albuterol/ Ipratropium) 3 ml Q4H PRN HHN sob 08/17/18 06:45 08/22/18 06:44 Chlorhexidine Gluconate (Anni-Hex 2%) 1 applic DAILY@2000 TOPIC 08/15/18 20:00 08/17/18 23:59 08/16/18 19:40 Docusate Sodium (Colace) 100 mg THREE TIMES A DAY ORAL 08/15/18 18:00 09/11/18 12:59 08/16/18 18:27 Epoetin Issa (Procrit (for ESRD on dialysis)) 10,000 units SUN-SUN-SUN SUBQ 08/16/18 21:00 09/11/18 20:59 08/16/18 21:04 Hydralazine HCl (Apresoline) 25 mg Q8HR ORAL 08/15/18 22:00 09/11/18 13:59 08/16/18 14:00 Lorazepam (Ativan 2mg/ml 1ml) 2 mg Q4H PRN IV Agitation 08/16/18 14:00 08/22/18 17:29 08/17/18 14:33 Metoprolol Tartrate (Lopressor) 12.5 mg Q12HR ORAL 08/15/18 21:00 09/14/18 20:59 08/17/18 09:21 Morphine Sulfate (Morphine Sulfate) 4 mg Q4H PRN IVP For Pain 08/15/18 17:30 08/22/18 17:29 08/17/18 14:06 Ondansetron HCl (Zofran) 4 mg Q6H PRN IVP Nausea & Vomiting 08/15/18 17:00 09/11/18 16:59 Pantoprazole (Protonix) 40 mg EVERY 12 HOURS IVP 08/15/18 21:00 09/14/18 20:59 08/17/18 09:20 Piperacillin Sod/ Tazobactam Sod 2.25 gm/Dextrose 55 ml @ 110 mls/hr Q8H IVPB 08/15/18 18:00 08/19/18 17:59 08/17/18 09:20 Vancomycin HCl (Vanco rx to dose) 1 ea DAILY PRN MISC Per rx protocol 08/15/18 17:30 09/14/18 17:29 Donte Null M.D. Aug 17, 2018 14:48
--- NOTE | 2018-08-17 14:50 | Cardiology Progress Note ---
Assessment/Plan Problem List: (1) Aspiration pneumonia (2) Respiratory arrest (3) Hypertension (4) Atrial fibrillation with rapid ventricular response Status: not improved Status Narrative Mr. Garza self-extubated and removed NGT this pm. He is so far maintaining oxygen sats on NRB, but may need to be re-intubated. Assessment/Plan Follow ABGs, respiratory status closely. BP elevated - will give iv hydralazine prn until ngt replaced Continue iv antibiotics for pneumonia. Fluid removal w/ hemodialysis. Subjective ROS Limited/Unobtainable: Yes Subjective Cardiology for Dr. Thakkar Events noted. Pt self-extubated this pm. currently appears sedated, on NRB mask Objective Last 24 Hour Vital Signs Date Time Temp Pulse Resp B/P (MAP) Pulse Ox O2 Delivery O2 Flow Rate FiO2 08/17/18 14:10 100.0 08/17/18 14:06 98.2 08/17/18 14:00 Non-Rebreather 15.0 100 08/17/18 14:00 99 58 175/68 (103) 97 08/17/18 13:14 85 21 40 08/17/18 13:00 73 20 122/56 (78) 97 08/17/18 12:00 40 08/17/18 12:00 77 08/17/18 12:00 80 20 122/48 (72) 98 08/17/18 12:00 Mechanical Ventilator 08/17/18 11:14 74 20 100 Mechanical Ventilator 40 08/17/18 11:07 84 20 40 08/17/18 11:07 84 20 99 Mechanical Ventilator 40 08/17/18 11:00 84 20 116/48 (70) 98 08/17/18 10:00 89 20 113/46 (68) 98 08/17/18 09:21 89 141/57 08/17/18 09:01 81 20 40 08/17/18 09:00 98.2 87 20 141/46 (77) 98 98.2 08/17/18 08:00 76 08/17/18 08:00 Mechanical Ventilator 08/17/18 08:00 40 08/17/18 08:00 88 20 135/48 (77) 98 08/17/18 07:31 78 20 100 Mechanical Ventilator 40 08/17/18 07:21 81 20 99 Mechanical Ventilator 40 08/17/18 07:09 79 20 40 08/17/18 07:00 78 20 133/47 (75) 97 08/17/18 06:00 82 20 110/52 (71) 97 08/17/18 06:00 110/52 08/17/18 05:20 83 20 40 08/17/18 05:00 82 20 119/50 (73) 97 08/17/18 04:00 78 08/17/18 04:00 97.9 81 20 122/50 (74) 97 97.9 08/17/18 04:00 40 08/17/18 04:00 Mechanical Ventilator 08/17/18 03:33 69 20 100 Mechanical Ventilator 40 08/17/18 03:23 77 20 97 Mechanical Ventilator 40 08/17/18 03:23 77 20 40 08/17/18 03:00 81 20 126/51 (76) 99 08/17/18 02:00 77 20 124/50 (74) 99 08/17/18 01:15 88 20 40 08/17/18 01:00 81 20 126/52 (76) 99 08/17/18 00:00 Mechanical Ventilator 08/17/18 00:00 79 08/17/18 00:00 98.0 74 20 105/55 (72) 99 98.0 08/17/18 00:00 40 08/16/18 23:54 98.0 08/16/18 23:25 93 20 99 Mechanical Ventilator 40 08/16/18 23:24 98.0 08/16/18 23:15 93 20 99 Mechanical Ventilator 40 08/16/18 23:15 93 20 40 08/16/18 23:00 86 20 138/62 (87) 99 08/16/18 22:00 119/72 08/16/18 22:00 92 20 116/55 (75) 99 08/16/18 21:05 95 20 40 08/16/18 21:04 94 126/53 08/16/18 21:00 96 20 126/53 (77) 99 08/16/18 20:00 40 08/16/18 20:00 97.9 85 20 132/50 (77) 97 97.9 08/16/18 20:00 Mechanical Ventilator 08/16/18 20:00 97 08/16/18 19:36 90 20 100 Mechanical Ventilator 40 08/16/18 19:26 98 21 40 08/16/18 19:26 98 21 99 Mechanical Ventilator 40 08/16/18 19:00 85 20 139/48 (78) 99 08/16/18 18:00 87 20 139/48 (78) 99 08/16/18 17:00 84 20 133/64 (87) 100 08/16/18 16:56 85 20 40 08/16/18 16:00 88 08/16/18 16:00 40 08/16/18 16:00 Mechanical Ventilator 08/16/18 16:00 98.0 81 20 117/55 (75) 100 98.0 08/16/18 15:00 89 19 149/77 (101) 100 08/16/18 14:57 Mechanical Ventilator 40 08/16/18 14:57 Mechanical Ventilator 40 08/16/18 14:56 89 20 40 08/16/18 14:47 Endotracheal Tube General Appearance: WD/WN, lethargic, other - on NRB mask oxygen EENT: PERRL/EOMI Neck: supple, no JVD Rhythm: NSR Cardiovascular: normal rate, regular rhythm, no gallop/murmur Respiratory/Chest: other - shallow respirations . no rales, rhonchi Abdomen: normal bowel sounds, non tender, soft Extremities: no swelling Intake and Output 08/16/18 08/17/18 19:00 07:00 Intake Total 960.562 ml 415 ml Output Total 2000 ml 0 ml Balance -1039.438 ml 415 ml Free Water 30 ml IV Total 330.562 ml 55 ml Tube Feeding 80 ml 330 ml Blood Product 550 ml Output Urine Total 0 ml 0 ml Hemodialysis UF 2000 ml # Bowel Movements 2 3 Laboratory Tests Test 08/17/18 04:00 08/17/18 07:09 White Blood Count 11.5 K/UL (4.8-10.8) H Red Blood Count 2.94 M/UL (4.70-6.10) L Hemoglobin 9.6 G/DL (14.2-18.0) #L Hematocrit 27.6 % (42.0-52.0) #L Mean Corpuscular Volume 94 FL (80-99) Mean Corpuscular Hemoglobin 32.5 PG (27.0-31.0) H Mean Corpuscular Hemoglobin Concent 34.6 G/DL (32.0-36.0) Red Cell Distribution Width 16.7 % (11.6-14.8) H Platelet Count 154 K/UL (150-450) Mean Platelet Volume 7.2 FL (6.5-10.1) Neutrophils (%) (Auto) 83.5 % (45.0-75.0) H Lymphocytes (%) (Auto) 7.3 % (20.0-45.0) L Monocytes (%) (Auto) 7.0 % (1.0-10.0) Eosinophils (%) (Auto) 1.8 % (0.0-3.0) Basophils (%) (Auto) 0.4 % (0.0-2.0) Sodium Level 142 MMOL/L (136-145) Potassium Level 2.7 MMOL/L (3.5-5.1) *L Chloride Level 100 MMOL/L (98-107) Carbon Dioxide Level 29 MMOL/L (21-32) Anion Gap 13 mmol/L (5-15) Blood Urea Nitrogen 51 mg/dL (7-18) H Creatinine 5.7 MG/DL (0.55-1.30) H Estimat Glomerular Filtration Rate mL/min (>60) Glucose Level 102 MG/DL (74-106) Calcium Level 8.2 MG/DL (8.5-10.1) L Phosphorus Level 3.5 MG/DL (2.5-4.9) Magnesium Level 1.8 MG/DL (1.8-2.4) Total Bilirubin 1.3 MG/DL (0.2-1.0) H Direct Bilirubin 0.5 MG/DL (0.0-0.3) H Aspartate Amino Transf (AST/SGOT) 73 U/L (15-37) H Alanine Aminotransferase (ALT/SGPT) 125 U/L (12-78) H Alkaline Phosphatase 124 U/L (46-116) H Troponin I 2.474 ng/mL (0.000-0.056) Pro-B-Type Natriuretic Peptide > 98612 pg/mL (0-125) H Total Protein 5.5 G/DL (6.4-8.2) L Albumin 2.0 G/DL (3.4-5.0) L Globulin 3.5 g/dL Albumin/Globulin Ratio 0.6 (1.0-2.7) L Arterial Blood pH 7.617 (7.350-7.450) Arterial Blood Partial Pressure CO2 27.8 mmHg (35.0-45.0) L Arterial Blood Partial Pressure O2 104.4 mmHg (75.0-100.0) H Arterial Blood HCO3 27.7 mmol/L (22.0-26.0) H Arterial Blood Oxygen Saturation 97.4 % (95-100) Arterial Blood Base Excess 6.7 (-2-2) H Ugo Test Positive Microbiology Date/Time Source Procedure Growth Status 08/15/18 17:50 Sputum Expectorated Gram Stain - Final Resulted 08/15/18 17:50 Sputum Expectorated Sputum Culture - Preliminary NO GROWTH AFTER 24 HOURS Resulted Kyra Barillas MD Aug 17, 2018 14:50
--- NOTE | 2018-08-17 16:49 | General Progress Note ---
Assessment/Plan Problem List: (1) Respiratory arrest ICD Codes: R09.2 - Respiratory arrest SNOMED: 17893167 (2) Aspiration pneumonia ICD Codes: J69.0 - Pneumonitis due to inhalation of food and vomit SNOMED: 052902019 (3) Hemoptysis ICD Codes: R04.2 - Hemoptysis SNOMED: 75527538 (4) ESRD (end stage renal disease) on dialysis ICD Codes: N18.6 - End stage renal failure on dialysis; Z99.2 - Dependence on renal dialysis SNOMED: 158375652 (5) Hypertension ICD Codes: I10 - Hypertension SNOMED: 24935174 (6) Cardiac ischemia ICD Codes: I25.9 - Chronic ischemic heart disease, unspecified SNOMED: 715465605 Status: stable Assessment/Plan self extubated pulm support transfuse 2 units- 08/16 HD 08/16 refused HD 08/15 by patient despite of mediation by family vent support Sedation as needed kayexelate for high K as needed watch for Anemia FFP and Vit K given 08/13 2 D echo Cardiomyopathy Cardiology eval noted- discussed with Dr Thakkar Anti platelets / Anti coag / Cardiac Cath... Subjective ROS Limited/Unobtainable: No Constitutional: Reports: malaise Allergies: Coded Allergies: BANANA (Verified Allergy, Severe, 08/12/18) GIL (Verified Allergy, Severe, 08/12/18) CARROT (Verified Allergy, Severe, 08/12/18) Dairy (Verified Allergy, Severe, 08/12/18) GRAPE (Verified Allergy, Severe, 08/12/18) Pork (Verified Allergy, Severe, 08/12/18) Potato (Verified Allergy, Severe, 08/12/18) Objective Last 24 Hour Vital Signs Date Time Temp Pulse Resp B/P (MAP) Pulse Ox O2 Delivery O2 Flow Rate FiO2 08/17/18 16:01 96 28 122/45 (70) 97 08/17/18 16:00 Non-Rebreather Non-Rebreather 08/17/18 16:00 99 08/17/18 15:00 98.7 89 22 160/58 (92) 98 98.7 08/17/18 14:49 88 20 100 Non-Rebreather 100 08/17/18 14:39 90 20 99 Non-Rebreather 100 08/17/18 14:10 100.0 08/17/18 14:06 98.2 08/17/18 14:00 Non-Rebreather 15.0 100 08/17/18 14:00 150/65 08/17/18 14:00 99 58 175/68 (103) 97 08/17/18 13:14 85 21 40 08/17/18 13:00 73 20 122/56 (78) 97 08/17/18 12:00 40 08/17/18 12:00 77 08/17/18 12:00 80 20 122/48 (72) 98 08/17/18 12:00 Mechanical Ventilator 08/17/18 11:14 74 20 100 Mechanical Ventilator 40 08/17/18 11:07 84 20 40 08/17/18 11:07 84 20 99 Mechanical Ventilator 40 08/17/18 11:00 84 20 116/48 (70) 98 08/17/18 10:00 89 20 113/46 (68) 98 08/17/18 09:21 89 141/57 08/17/18 09:01 81 20 40 08/17/18 09:00 98.2 87 20 141/46 (77) 98 98.2 08/17/18 08:00 76 08/17/18 08:00 Mechanical Ventilator 08/17/18 08:00 40 08/17/18 08:00 88 20 135/48 (77) 98 08/17/18 07:31 78 20 100 Mechanical Ventilator 40 08/17/18 07:21 81 20 99 Mechanical Ventilator 40 08/17/18 07:09 79 20 40 08/17/18 07:00 78 20 133/47 (75) 97 08/17/18 06:00 82 20 110/52 (71) 97 08/17/18 06:00 110/52 08/17/18 05:20 83 20 40 08/17/18 05:00 82 20 119/50 (73) 97 08/17/18 04:00 78 08/17/18 04:00 97.9 81 20 122/50 (74) 97 97.9 08/17/18 04:00 40 08/17/18 04:00 Mechanical Ventilator 08/17/18 03:33 69 20 100 Mechanical Ventilator 40 08/17/18 03:23 77 20 97 Mechanical Ventilator 40 08/17/18 03:23 77 20 40 1020/18 03:00 81 20 126/51 (76) 99 08/17/18 02:00 77 20 124/50 (74) 99 08/17/18 01:15 88 20 40 08/17/18 01:00 81 20 126/52 (76) 99 08/17/18 00:00 Mechanical Ventilator 08/17/18 00:00 79 08/17/18 00:00 98.0 74 20 105/55 (72) 99 98.0 08/17/18 00:00 40 08/16/18 23:54 98.0 08/16/18 23:25 93 20 99 Mechanical Ventilator 40 08/16/18 23:24 98.0 08/16/18 23:15 93 20 99 Mechanical Ventilator 40 08/16/18 23:15 93 20 40 08/16/18 23:00 86 20 138/62 (87) 99 08/16/18 22:00 119/72 08/16/18 22:00 92 20 116/55 (75) 99 08/16/18 21:05 95 20 40 08/16/18 21:04 94 126/53 08/16/18 21:00 96 20 126/53 (77) 99 08/16/18 20:00 40 08/16/18 20:00 97.9 85 20 132/50 (77) 97 97.9 08/16/18 20:00 Mechanical Ventilator 08/16/18 20:00 97 08/16/18 19:36 90 20 100 Mechanical Ventilator 40 08/16/18 19:26 98 21 40 08/16/18 19:26 98 21 99 Mechanical Ventilator 40 08/16/18 19:00 85 20 139/48 (78) 99 08/16/18 18:00 87 20 139/48 (78) 99 08/16/18 17:00 84 20 133/64 (87) 100 08/16/18 16:56 85 20 40 Intake and Output 08/16/18 08/17/18 18:59 06:59 Intake Total 940.562 ml 395 ml Output Total 2000 ml 0 ml Balance -1059.438 ml 395 ml Free Water 30 ml IV Total 330.562 ml 55 ml Tube Feeding 60 ml 310 ml Blood Product 550 ml Output Urine Total 0 ml 0 ml Hemodialysis UF 2000 ml # Bowel Movements 1 4 Laboratory Tests 08/17/18 04:00: White Blood Count 11.5H, Red Blood Count 2.94L, Hemoglobin 9.6#L, Hematocrit 27.6#L, Mean Corpuscular Volume 94, Mean Corpuscular Hemoglobin 32.5H, Mean Corpuscular Hemoglobin Concent 34.6, Red Cell Distribution Width 16.7H, Platelet Count 154, Mean Platelet Volume 7.2, Neutrophils (%) (Auto) 83.5H, Lymphocytes (%) (Auto) 7.3L, Monocytes (%) (Auto) 7.0, Eosinophils (%) (Auto) 1.8, Basophils (%) (Auto) 0.4, Sodium Level 142, Potassium Level 2.7*L, Chloride Level 100, Carbon Dioxide Level 29, Anion Gap 13, Blood Urea Nitrogen 51H, Creatinine 5.7H, Estimat Glomerular Filtration Rate , Glucose Level 102, Calcium Level 8.2L, Phosphorus Level 3.5, Magnesium Level 1.8, Total Bilirubin 1.3H, Direct Bilirubin 0.5H, Aspartate Amino Transf (AST/SGOT) 73H, Alanine Aminotransferase (ALT/SGPT) 125H, Alkaline Phosphatase 124H, Troponin I 2.474H, Pro-B-Type Natriuretic Peptide > 30939K, Total Protein 5.5L, Albumin 2.0L, Globulin 3.5, Albumin/Globulin Ratio 0.6L 08/17/18 07:09: Arterial Blood pH 7.617*H, Arterial Blood Partial Pressure CO2 27.8L, Arterial Blood Partial Pressure O2 104.4H, Arterial Blood HCO3 27.7H, Arterial Blood Oxygen Saturation 97.4, Arterial Blood Base Excess 6.7H, Ugo Test Positive 08/17/18 15:35: Arterial Blood pH 7.446, Arterial Blood Partial Pressure CO2 47.8H, Arterial Blood Partial Pressure O2 83.3, Arterial Blood HCO3 32.2H, Arterial Blood Oxygen Saturation 95.2, Arterial Blood Base Excess 7.2H, Ugo Test Positive Height (Feet): 5 Height (Inches): 8.00 Weight (Pounds): 130 General Appearance: no apparent distress, other - self extubated Cardiovascular: normal rate Respiratory/Chest: decreased breath sounds Abdomen: soft Ady Gómez MD Aug 17, 2018 16:49
[2018-08-17] MEDS: Dyna-Hex 2% Top Sol 2oz TOPIC SCH (20:39)
[2018-08-17] MEDS: Metoprolol 25mg tab ORAL SCH (20:40)
[2018-08-18] VITALS (24 sets, daily range): BP systolic 132–193; BP diastolic 46–80
[2018-08-18] MEDS: Piperacillin/Tazobactam 2.25 GM in D5W 55 ML IVPB SCH ×3 (02:24→18:29)
[2018-08-18 03:50] LABS: BASOPHILS % (AUTO) 0.6 % (0.0-2.0); EOSINOPHILS % (AUTO) 2.1 % (0.0-3.0); HEMATOCRIT 31.9 % (42.0-52.0); HEMOGLOBIN 10.8 G/DL (14.2-18.0); LYMPHOCYTES % (AUTO) 6.8 % (20.0-45.0); MEAN CORPUSCULAR VOLUME 96 FL (80-99); MONOCYTES % (AUTO) 9.5 % (1.0-10.0); NEUTROPHILS % (AUTO) 81.1 % (45.0-75.0); PLATELET COUNT 171 K/UL (150-450); RED BLOOD COUNT 3.33 M/UL (4.70-6.10); RED CELL DISTRIBUTION WIDTH 17.3 % (11.6-14.8); WHITE BLOOD COUNT 14.1 K/UL (4.8-10.8)
[2018-08-18 04:40] LABS: ALANINE AMINOTRANSFERASE 127 U/L (12-78); ALBUMIN 2.3 G/DL (3.4-5.0); ALBUMIN/GLOBULIN RATIO 0.6 (1.0-2.7); ALKALINE PHOSPHATASE 132 U/L (46-116); ANION GAP 15 mmol/L (5-15); ASPARTATE AMINO TRANSFERASE 65 U/L (15-37); BILIRUBIN,TOTAL 1.5 MG/DL (0.2-1.0); BLOOD UREA NITROGEN 66 mg/dL (7-18); CALCIUM 8.7 MG/DL (8.5-10.1); CARBON DIOXIDE 29 MMOL/L (21-32); CHLORIDE 99 MMOL/L (98-107); CREATININE 7.2 MG/DL (0.55-1.30); PHOSPHORUS 5.5 MG/DL (2.5-4.9); POTASSIUM 2.9 MMOL/L (3.5-5.1); SODIUM 143 MMOL/L (136-145)
[2018-08-18 04:50] LABS: BILIRUBIN,DIRECT 0.6 MG/DL (0.0-0.3)
[2018-08-18] MEDS: HydrALAZINE 25mg tab ORAL SCH ×3 (05:50→22:00)
[2018-08-18] MEDS: Morphine Sulfate 4mg/ml Inj (IV/IM USE ONLY) IVP PRN (06:10)
[2018-08-18] MEDS: Docusate 100mg cap ORAL SCH ×3 (08:00→18:00)
--- NOTE | 2018-08-18 08:29 | Pulmonolgy Critical Care Note ---
Critical Care - Asmt/Plan Assessment/Plan: ASSESSMENT Acute hypoxemic respiratory failure, requiring intubation due to CP arrest Status post cardiopulmonary arrest 08/15 s/p self extubation 08/17 CO2 retention Healthcare associated pneumonia Likely aspiration pneumonia COPD Interstitial lung disease Coagulopathy, corrected NSTEMI Paroxysmal atrial fibrillation Cardiomyopathy Pericardial effusion( increased in size from 2017) Right atrium collapse( no change from 2017) End-stage renal disease ,on hemodialysis Diabetes mellitus Anemia of chronic /kidney disease, s/p blood transfusion Dementia Transaminitis Protein calorie malnutrition PLAN of CARE ICU status BiPAP, incerase FiO2 to 80% pulmonary toilet daily CXR and ABG ; off heparin drip 2 to bloody secretions was on aspirin, dc due to severe anemia troponin trending down cardio follows on beta umair with close monitoring of heart rate , currently stable per cardiology discussion with family , son declined cardiac cath/angiogram need to f/up with ECHO as per cardio BP management abx, ID follows blood and sputum cx negative, influenza screen test negative HD as per nephro with ultrafiltration with close monitoring of renal parameters and electrolytes, correct e/lytes as needed - per nephro ( given HD status) coagulopathy corrected ; s/p 4 u FFP and vit K monitor H&H with goal to keep Hg above 7 , s/p 2 u PRBC 08/16 anemia w/up c/w anemia of chronic disease, on EPO BS with SSI, HgA1c- A1c 5.4 BSSE and VSSE done, diet for quality of life with strict aspiration/ reflux precautions , NGT out dietary eval re supplements monitor LFT supportive care bowel regimen case discussed and evaluated by supervising physician Critical Care - Objective Last 24 Hour Vital Signs Date Time Temp Pulse Resp B/P (MAP) Pulse Ox O2 Delivery O2 Flow Rate FiO2 08/18/18 08:00 98.0 95 15 175/74 (107) 97 98.0 08/18/18 08:00 98 08/18/18 08:00 Bi-pap Bi-pap 08/18/18 07:30 94 25 98 Facial 60 08/18/18 07:00 91 15 158/66 (96) 98 08/18/18 06:41 97.3 08/18/18 06:10 97.3 08/18/18 06:00 91 15 193/66 (108) 99 08/18/18 05:50 182/63 08/18/18 05:40 90 22 100 Facial 60 08/18/18 05:00 60 08/18/18 05:00 91 15 182/63 (102) 99 08/18/18 04:00 70 08/18/18 04:00 93 08/18/18 04:00 Bi-pap Bi-pap 08/18/18 04:00 97.3 93 18 156/62 (93) 100 97.3 08/18/18 03:33 191/68 08/18/18 03:28 90 18 100 Facial 70 08/18/18 03:00 89 18 192/80 (117) 100 08/18/18 02:00 82 18 152/54 (86) 100 08/18/18 01:16 85 16 100 Facial 80 08/18/18 01:00 82 18 160/54 (89) 100 08/18/18 00:00 83 08/18/18 00:00 Bi-pap Bi-pap 08/18/18 00:00 97.9 83 18 136/56 (82) 100 97.9 08/18/18 00:00 70 08/17/18 23:18 90 24 100 Facial 90 08/17/18 23:18 90 24 Bi-pap 90 08/17/18 23:03 99.0 08/17/18 23:00 86 18 172/65 (100) 100 08/17/18 22:11 140/62 08/17/18 22:00 95 20 140/62 (88) 98 08/17/18 21:00 91 20 147/52 (83) 98 08/17/18 20:49 93 27 100 Facial 100 08/17/18 20:40 86 147/52 08/17/18 20:00 Bi-pap Bi-pap 08/17/18 20:00 100 08/17/18 20:00 112 08/17/18 20:00 99.4 98 22 141/54 (83) 100 99.4 08/17/18 19:00 98 22 157/54 (88) 98 08/17/18 18:50 98 26 Bi-pap 100 08/17/18 18:50 98 26 100 Facial 100 08/17/18 18:16 194/68 08/17/18 18:00 103 22 190/68 (108) 98 08/17/18 17:00 90 28 110/44 (66) 97 08/17/18 16:01 96 28 122/45 (70) 97 08/17/18 16:00 Non-Rebreather Non-Rebreather 08/17/18 16:00 99 08/17/18 15:00 98.7 89 22 160/58 (92) 98 98.7 08/17/18 14:49 88 20 100 Non-Rebreather 100 08/17/18 14:39 90 20 99 Non-Rebreather 100 08/17/18 14:10 100.0 08/17/18 14:06 98.2 08/17/18 14:00 Non-Rebreather 15.0 100 08/17/18 14:00 150/65 08/17/18 14:00 99 58 175/68 (103) 97 08/17/18 13:14 85 21 40 08/17/18 13:00 73 20 122/56 (78) 97 08/17/18 12:00 40 08/17/18 12:00 77 08/17/18 12:00 80 20 122/48 (72) 98 08/17/18 12:00 Mechanical Ventilator 08/17/18 11:14 74 20 100 Mechanical Ventilator 40 08/17/18 11:07 84 20 40 08/17/18 11:07 84 20 99 Mechanical Ventilator 40 08/17/18 11:00 84 20 116/48 (70) 98 08/17/18 10:00 89 20 113/46 (68) 98 08/17/18 09:21 89 141/57 08/17/18 09:01 81 20 40 08/17/18 09:00 98.2 87 20 141/46 (77) 98 98.2 Objective: Status: awake, Condition: critical HEENT: atraumatic, normocephalic, BiPAP mask on Neck : soft, RIL CL intact Lungs: BS clear overall, few isolated crackles at bases Heart: HR stable, BP elevated Abdomen: soft, non-tender, active bowel sounds Extremities: no C/C/E Micro: Microbiology Date/Time Source Procedure Growth Status 08/15/18 17:50 Sputum Expectorated Gram Stain - Final Complete 08/15/18 17:50 Sputum Expectorated Sputum Culture - Final NORMAL UPPER RESPIRATORY TOÑO PRESENT Complete Critical Care - Subjective ROS Limited/Unobtainable: Yes Interval Events: s/p self extubation 08/17 evening on BiPAP ABG with evidence of hypoxemic hypercapnic respiratory failure troponin trending down leukocytosis up Condition: critical IV Access: central - RIL TL intact EKG Rhythm: Sinus Rhythm PEEP: 0.0 Tube Feeding Amount: 40 I&O: Intake and Output 08/17/18 08/18/18 19:00 07:00 Intake Total 690 ml 20 ml Output Total 50 ml 50 ml Balance 640 ml -30 ml Intake Oral 20 ml IV Total 210 ml Tube Feeding 480 ml Output Urine Total 50 ml 50 ml # Bowel Movements 6 1 CXR: CXR 08/17 1. Diffuse bilateral interstitial and airspace opacities are similar to minimally improved. 2. Tiny pleural effusions are stable. ET-Tube: 7.0 ET Position: 22 Breonna John NP Aug 18, 2018 08:29
[2018-08-18] MEDS: Metoprolol 25mg tab ORAL SCH ×2 (09:00→22:00)
[2018-08-18] MEDS: Pantoprazole Inj IVP SCH ×2 (09:04→20:16)
[2018-08-18] MEDS: LORazepam Inj 2mg/ml 1ml IV PRN ×2 (09:05→20:16)
--- NOTE | 2018-08-18 09:08 | General Progress Note ---
Assessment/Plan Problem List: (1) Respiratory arrest ICD Codes: R09.2 - Respiratory arrest SNOMED: 89414283 (2) Aspiration pneumonia ICD Codes: J69.0 - Pneumonitis due to inhalation of food and vomit SNOMED: 429600309 (3) Hemoptysis ICD Codes: R04.2 - Hemoptysis SNOMED: 06820477 (4) ESRD (end stage renal disease) on dialysis ICD Codes: N18.6 - End stage renal failure on dialysis; Z99.2 - Dependence on renal dialysis SNOMED: 661650223 (5) Hypertension ICD Codes: I10 - Hypertension SNOMED: 64008068 (6) Cardiac ischemia ICD Codes: I25.9 - Chronic ischemic heart disease, unspecified SNOMED: 237474110 Status: unchanged, deteriorating Status Narrative respiratory distress Assessment/Plan self extubated 08/17 BIPAP transfuse 2 units- 08/16 HD 08/16 again 08/18 refused HD 08/15 by patient despite of mediation by family vent support Sedation as needed discussed with FERNANDA Almaguer supplement watch for Anemia FFP and Vit K given 08/13 2 D echo Cardiomyopathy Cardiology eval noted- discussed with Dr Thakkar Anti platelets / Anti coag / Cardiac Cath... Subjective ROS Limited/Unobtainable: No Constitutional: Reports: other - on bipap Allergies: Coded Allergies: BANANA (Verified Allergy, Severe, 08/12/18) GIL (Verified Allergy, Severe, 08/12/18) CARROT (Verified Allergy, Severe, 08/12/18) Dairy (Verified Allergy, Severe, 08/12/18) GRAPE (Verified Allergy, Severe, 08/12/18) Pork (Verified Allergy, Severe, 08/12/18) Potato (Verified Allergy, Severe, 08/12/18) Objective Last 24 Hour Vital Signs Date Time Temp Pulse Resp B/P (MAP) Pulse Ox O2 Delivery O2 Flow Rate FiO2 08/18/18 09:00 80 170/71 08/18/18 08:00 98.0 95 15 175/74 (107) 97 98.0 08/18/18 08:00 98 08/18/18 08:00 Bi-pap Bi-pap 08/18/18 07:30 94 25 98 Facial 60 08/18/18 07:00 91 15 158/66 (96) 98 08/18/18 06:41 97.3 08/18/18 06:10 97.3 08/18/18 06:00 91 15 193/66 (108) 99 08/18/18 05:50 182/63 08/18/18 05:40 90 22 100 Facial 60 08/18/18 05:00 60 08/18/18 05:00 91 15 182/63 (102) 99 08/18/18 04:00 70 08/18/18 04:00 93 08/18/18 04:00 Bi-pap Bi-pap 08/18/18 04:00 97.3 93 18 156/62 (93) 100 97.3 08/18/18 03:33 191/68 08/18/18 03:28 90 18 100 Facial 70 08/18/18 03:00 89 18 192/80 (117) 100 08/18/18 02:00 82 18 152/54 (86) 100 08/18/18 01:16 85 16 100 Facial 80 08/18/18 01:00 82 18 160/54 (89) 100 08/18/18 00:00 83 08/18/18 00:00 Bi-pap Bi-pap 08/18/18 00:00 97.9 83 18 136/56 (82) 100 97.9 08/18/18 00:00 70 08/17/18 23:18 90 24 100 Facial 90 08/17/18 23:18 90 24 Bi-pap 90 08/17/18 23:03 99.0 08/17/18 23:00 86 18 172/65 (100) 100 08/17/18 22:11 140/62 08/17/18 22:00 95 20 140/62 (88) 98 08/17/18 21:00 91 20 147/52 (83) 98 08/17/18 20:49 93 27 100 Facial 100 08/17/18 20:40 86 147/52 08/17/18 20:00 Bi-pap Bi-pap 08/17/18 20:00 100 08/17/18 20:00 112 08/17/18 20:00 99.4 98 22 141/54 (83) 100 99.4 08/17/18 19:00 98 22 157/54 (88) 98 08/17/18 18:50 98 26 Bi-pap 100 08/17/18 18:50 98 26 100 Facial 100 08/17/18 18:16 194/68 08/17/18 18:00 103 22 190/68 (108) 98 08/17/18 17:00 90 28 110/44 (66) 97 08/17/18 16:01 96 28 122/45 (70) 97 08/17/18 16:00 Non-Rebreather Non-Rebreather 08/17/18 16:00 99 08/17/18 15:00 98.7 89 22 160/58 (92) 98 98.7 08/17/18 14:49 88 20 100 Non-Rebreather 100 08/17/18 14:39 90 20 99 Non-Rebreather 100 08/17/18 14:10 100.0 08/17/18 14:06 98.2 08/17/18 14:00 Non-Rebreather 15.0 100 08/17/18 14:00 150/65 08/17/18 14:00 99 58 175/68 (103) 97 08/17/18 13:14 85 21 40 08/17/18 13:00 73 20 122/56 (78) 97 08/17/18 12:00 40 08/17/18 12:00 77 08/17/18 12:00 80 20 122/48 (72) 98 08/17/18 12:00 Mechanical Ventilator 08/17/18 11:14 74 20 100 Mechanical Ventilator 40 08/17/18 11:07 84 20 40 08/17/18 11:07 84 20 99 Mechanical Ventilator 40 08/17/18 11:00 84 20 116/48 (70) 98 08/17/18 10:00 89 20 113/46 (68) 98 08/17/18 09:21 89 141/57 Intake and Output 08/17/18 08/18/18 19:00 07:00 Intake Total 690 ml 20 ml Output Total 50 ml 50 ml Balance 640 ml -30 ml Intake Oral 20 ml IV Total 210 ml Tube Feeding 480 ml Output Urine Total 50 ml 50 ml # Bowel Movements 6 1 Laboratory Tests 08/17/18 15:35: Arterial Blood pH 7.446, Arterial Blood Partial Pressure CO2 47.8H, Arterial Blood Partial Pressure O2 83.3, Arterial Blood HCO3 32.2H, Arterial Blood Oxygen Saturation 95.2, Arterial Blood Base Excess 7.2H, Ugo Test Positive 08/18/18 03:30: White Blood Count 14.1H, Red Blood Count 3.33L, Hemoglobin 10.8L, Hematocrit 31.9L, Mean Corpuscular Volume 96, Mean Corpuscular Hemoglobin 32.5H, Mean Corpuscular Hemoglobin Concent 33.9, Red Cell Distribution Width 17.3H, Platelet Count 171, Mean Platelet Volume 6.7, Neutrophils (%) (Auto) 81.1H, Lymphocytes (%) (Auto) 6.8L, Monocytes (%) (Auto) 9.5, Eosinophils (%) (Auto) 2.1, Basophils (%) (Auto) 0.6, Sodium Level 143, Potassium Level 2.9L, Chloride Level 99, Carbon Dioxide Level 29, Anion Gap 15, Blood Urea Nitrogen 66H, Creatinine 7.2H, Estimat Glomerular Filtration Rate , Glucose Level 128H, Uric Acid 6.4, Calcium Level 8.7, Phosphorus Level 5.5H, Magnesium Level 2.0, Total Bilirubin 1.5H, Direct Bilirubin 0.6H, Aspartate Amino Transf (AST/SGOT) 65H, Alanine Aminotransferase (ALT/SGPT) 127H, Alkaline Phosphatase 132H, Troponin I 1.377H, C-Reactive Protein, Quantitative 21.6H, Pro-B-Type Natriuretic Peptide > 87446R, Total Protein 6.3L, Albumin 2.3L, Globulin 4.0, Albumin/Globulin Ratio 0.6L 08/18/18 04:00: Arterial Blood pH 7.387, Arterial Blood Partial Pressure CO2 55.3*H, Arterial Blood Partial Pressure O2 42.5*L, Arterial Blood HCO3 32.5H, Arterial Blood Oxygen Saturation 71.8*L, Arterial Blood Base Excess 6.1H, Ugo Test Positive Height (Feet): 5 Height (Inches): 8.00 Weight (Pounds): 130 General Appearance: mild distress, agitated Cardiovascular: tachycardia Respiratory/Chest: decreased breath sounds Abdomen: soft Objective on bipapa post self extubation Ady Gómez MD Aug 18, 2018 09:08
--- NOTE | 2018-08-18 09:11 | Diagnostic Imaging Report ---
PORTABLE AP UPRIGHT CXR: HISTORY: 83-year-old male with SOB. COMPARISON: Portable CXRs 08/17/2018, 08/16/2018, 08/15/2018. FINDINGS: Compared with yesterday's exam, endotracheal tube appears to been removed, and the previously identified enteric tube is no longer identified. Bilateral patchy groundglass and reticular opacities appear grossly stable bilaterally, allowing for differences in technique. There is probably at least a small right pleural effusion, as before. Cardiomegaly is grossly stable.. No obvious pneumothorax. IMPRESSION: Status post extubation; otherwise, no definite significant interval change, allowing for differences in technique.
--- NOTE | 2018-08-18 11:36 | General Surgery Progress Note ---
General Surgery-Progress Note Subjective Procedure Performed right internal jugular central venous catheter insertion Additional Comments extubated. HD this AM. line c/d/i. Objective Last 24 Hour Vital Signs Date Time Temp Pulse Resp B/P (MAP) Pulse Ox O2 Delivery O2 Flow Rate FiO2 08/18/18 11:20 99 17 99 Facial 70 08/18/18 11:00 110 12 180/65 (103) 99 08/18/18 10:00 94 12 132/55 (80) 98 08/18/18 09:37 08/18/18 09:34 93 22 96 Facial 80 08/18/18 09:10 Bi-pap 80 08/18/18 09:00 80 170/71 08/18/18 09:00 90 15 170/70 (103) 98 08/18/18 08:00 98.0 95 15 175/74 (107) 97 98.0 08/18/18 08:00 98 08/18/18 08:00 Bi-pap Bi-pap 08/18/18 07:30 94 25 98 Facial 60 08/18/18 07:00 91 15 158/66 (96) 98 08/18/18 06:41 97.3 08/18/18 06:10 97.3 08/18/18 06:00 91 15 193/66 (108) 99 08/18/18 05:50 182/63 08/18/18 05:40 90 22 100 Facial 60 08/18/18 05:00 60 08/18/18 05:00 91 15 182/63 (102) 99 08/18/18 04:00 70 08/18/18 04:00 93 08/18/18 04:00 Bi-pap Bi-pap 08/18/18 04:00 97.3 93 18 156/62 (93) 100 97.3 08/18/18 03:33 191/68 08/18/18 03:28 90 18 100 Facial 70 08/18/18 03:00 89 18 192/80 (117) 100 08/18/18 02:00 82 18 152/54 (86) 100 08/18/18 01:16 85 16 100 Facial 80 08/18/18 01:00 82 18 160/54 (89) 100 08/18/18 00:00 83 08/18/18 00:00 Bi-pap Bi-pap 08/18/18 00:00 97.9 83 18 136/56 (82) 100 97.9 08/18/18 00:00 70 08/17/18 23:18 90 24 100 Facial 90 08/17/18 23:18 90 24 Bi-pap 90 08/17/18 23:03 99.0 08/17/18 23:00 86 18 172/65 (100) 100 08/17/18 22:11 140/62 08/17/18 22:00 95 20 140/62 (88) 98 08/17/18 21:00 91 20 147/52 (83) 98 08/17/18 20:49 93 27 100 Facial 100 08/17/18 20:40 86 147/52 08/17/18 20:00 Bi-pap Bi-pap 08/17/18 20:00 100 08/17/18 20:00 112 08/17/18 20:00 99.4 98 22 141/54 (83) 100 99.4 08/17/18 19:00 98 22 157/54 (88) 98 08/17/18 18:50 98 26 Bi-pap 100 08/17/18 18:50 98 26 100 Facial 100 08/17/18 18:16 194/68 08/17/18 18:00 103 22 190/68 (108) 98 08/17/18 17:00 90 28 110/44 (66) 97 08/17/18 16:01 96 28 122/45 (70) 97 08/17/18 16:00 Non-Rebreather Non-Rebreather 08/17/18 16:00 99 08/17/18 15:00 98.7 89 22 160/58 (92) 98 98.7 08/17/18 14:49 88 20 100 Non-Rebreather 100 08/17/18 14:39 90 20 99 Non-Rebreather 100 08/17/18 14:10 100.0 08/17/18 14:06 98.2 08/17/18 14:00 Non-Rebreather 15.0 100 08/17/18 14:00 150/65 08/17/18 14:00 99 58 175/68 (103) 97 08/17/18 13:14 85 21 40 08/17/18 13:00 73 20 122/56 (78) 97 08/17/18 12:00 40 08/17/18 12:00 77 08/17/18 12:00 80 20 122/48 (72) 98 08/17/18 12:00 Mechanical Ventilator I&O Intake and Output 08/17/18 08/18/18 19:00 07:00 Intake Total 690 ml 20 ml Output Total 50 ml 50 ml Balance 640 ml -30 ml Intake Oral 20 ml IV Total 210 ml Tube Feeding 480 ml Output Urine Total 50 ml 50 ml # Bowel Movements 6 1 Drains: other Cardiovascular: RSR Respiratory: clear, decreased breath sounds Abdomen: soft, flat, non-tender, present bowel sounds Extremities: no cyanosis Laboratory Tests Test 08/17/18 15:35 08/18/18 03:30 08/18/18 04:00 08/18/18 10:10 Arterial Blood pH 7.446 (7.350-7.450) 7.387 (7.350-7.450) Arterial Blood Partial Pressure CO2 47.8 mmHg (35.0-45.0) H 55.3 mmHg (35.0-45.0) *H Arterial Blood Partial Pressure O2 83.3 mmHg (75.0-100.0) 42.5 mmHg (75.0-100.0) Arterial Blood HCO3 32.2 mmol/L (22.0-26.0) H 32.5 mmol/L (22.0-26.0) H Arterial Blood Oxygen Saturation 95.2 % (95-100) 71.8 % (95-100) *L Arterial Blood Base Excess 7.2 (-2-2) H 6.1 (-2-2) H Ugo Test Positive Positive White Blood Count 14.1 K/UL (4.8-10.8) H Red Blood Count 3.33 M/UL (4.70-6.10) L Hemoglobin 10.8 G/DL (14.2-18.0) L Hematocrit 31.9 % (42.0-52.0) L Mean Corpuscular Volume 96 FL (80-99) Mean Corpuscular Hemoglobin 32.5 PG (27.0-31.0) H Mean Corpuscular Hemoglobin Concent 33.9 G/DL (32.0-36.0) Red Cell Distribution Width 17.3 % (11.6-14.8) H Platelet Count 171 K/UL (150-450) Mean Platelet Volume 6.7 FL (6.5-10.1) Neutrophils (%) (Auto) 81.1 % (45.0-75.0) H Lymphocytes (%) (Auto) 6.8 % (20.0-45.0) L Monocytes (%) (Auto) 9.5 % (1.0-10.0) Eosinophils (%) (Auto) 2.1 % (0.0-3.0) Basophils (%) (Auto) 0.6 % (0.0-2.0) Sodium Level 143 MMOL/L (136-145) Potassium Level 2.9 MMOL/L (3.5-5.1) L Chloride Level 99 MMOL/L (98-107) Carbon Dioxide Level 29 MMOL/L (21-32) Anion Gap 15 mmol/L (5-15) Blood Urea Nitrogen 66 mg/dL (7-18) H Creatinine 7.2 MG/DL (0.55-1.30) H Estimat Glomerular Filtration Rate mL/min (>60) Glucose Level 128 MG/DL (74-106) H Uric Acid 6.4 MG/DL (2.6-7.2) Calcium Level 8.7 MG/DL (8.5-10.1) Phosphorus Level 5.5 MG/DL (2.5-4.9) H Magnesium Level 2.0 MG/DL (1.8-2.4) Total Bilirubin 1.5 MG/DL (0.2-1.0) H Direct Bilirubin 0.6 MG/DL (0.0-0.3) H Aspartate Amino Transf (AST/SGOT) 65 U/L (15-37) H Alanine Aminotransferase (ALT/SGPT) 127 U/L (12-78) H Alkaline Phosphatase 132 U/L (46-116) H Troponin I 1.377 ng/mL (0.000-0.056) C-Reactive Protein, Quantitative 21.6 mg/dL (0.00-0.90) H 25.0 mg/dL (0.00-0.90) H Pro-B-Type Natriuretic Peptide > 53924 pg/mL (0-125) H Total Protein 6.3 G/DL (6.4-8.2) L Albumin 2.3 G/DL (3.4-5.0) L Globulin 4.0 g/dL Albumin/Globulin Ratio 0.6 (1.0-2.7) L Plan Problems: (1) Acute exacerbation of CHF (congestive heart failure) (2) Acute respiratory failure Assessment & Plan: doing well since extubated HD going well awake leukocytosis line clean and in good positioning cont current treatment appreciate ICU care Ghanshyam Quintanilla Aug 18, 2018 11:36
--- NOTE | 2018-08-18 14:54 | Cardiology Progress Note ---
Assessment/Plan Problem List: (1) Aspiration pneumonia (2) Respiratory arrest (3) Hypertension (4) Atrial fibrillation with rapid ventricular response Status: stable, unchanged Status Narrative Mr. Garza self-extubated and removed NGT yesterday. He is maintaining oxygen sats on FM 02. He was dialyzed today w/ 2 L removed. He is now in rapid AF. Assessment/Plan Follow ABGs, respiratory status closely. BP control improving Continue iv antibiotics for pneumonia. Increase metoprolol for better rate control in AF No anticoagulation due to hx of gi bleeding/ anemia Subjective ROS Limited/Unobtainable: Yes Subjective Cardiology for Dr. Thakkar Events noted. Pt remains on NRB mask Objective Last 24 Hour Vital Signs Date Time Temp Pulse Resp B/P (MAP) Pulse Ox O2 Delivery O2 Flow Rate FiO2 08/18/18 14:00 104 15 143/70 (94) 96 08/18/18 13:26 176/58 08/18/18 13:26 176/58 08/18/18 13:08 106 25 100 Facial 70 08/18/18 13:00 103 12 176/58 (97) 99 08/18/18 12:00 60 08/18/18 12:00 98 08/18/18 12:00 98.2 105 12 160/55 (90) 99 98.2 08/18/18 12:00 Bi-pap Bi-pap 08/18/18 11:20 99 17 99 Facial 70 08/18/18 11:00 110 12 180/65 (103) 99 08/18/18 10:00 94 12 132/55 (80) 98 08/18/18 09:37 08/18/18 09:34 93 22 96 Facial 80 08/18/18 09:10 Bi-pap 80 08/18/18 09:00 80 170/71 08/18/18 09:00 90 15 170/70 (103) 98 08/18/18 08:00 98.0 95 15 175/74 (107) 97 98.0 08/18/18 08:00 98 08/18/18 08:00 Bi-pap Bi-pap 08/18/18 07:30 94 25 98 Facial 60 08/18/18 07:00 91 15 158/66 (96) 98 08/18/18 06:41 97.3 08/18/18 06:10 97.3 08/18/18 06:00 91 15 193/66 (108) 99 08/18/18 05:50 182/63 08/18/18 05:40 90 22 100 Facial 60 08/18/18 05:00 60 08/18/18 05:00 91 15 182/63 (102) 99 08/18/18 04:00 70 08/18/18 04:00 93 08/18/18 04:00 Bi-pap Bi-pap 08/18/18 04:00 97.3 93 18 156/62 (93) 100 97.3 08/18/18 03:33 191/68 08/18/18 03:28 90 18 100 Facial 70 08/18/18 03:00 89 18 192/80 (117) 100 08/18/18 02:00 82 18 152/54 (86) 100 08/18/18 01:16 85 16 100 Facial 80 08/18/18 01:00 82 18 160/54 (89) 100 08/18/18 00:00 83 08/18/18 00:00 Bi-pap Bi-pap 08/18/18 00:00 97.9 83 18 136/56 (82) 100 97.9 08/18/18 00:00 70 08/17/18 23:18 90 24 100 Facial 90 08/17/18 23:18 90 24 Bi-pap 90 08/17/18 23:03 99.0 08/17/18 23:00 86 18 172/65 (100) 100 08/17/18 22:11 140/62 08/17/18 22:00 95 20 140/62 (88) 98 08/17/18 21:00 91 20 147/52 (83) 98 08/17/18 20:49 93 27 100 Facial 100 08/17/18 20:40 86 147/52 08/17/18 20:00 Bi-pap Bi-pap 08/17/18 20:00 100 08/17/18 20:00 112 08/17/18 20:00 99.4 98 22 141/54 (83) 100 99.4 08/17/18 19:00 98 22 157/54 (88) 98 18 18:50 98 26 Bi-pap 100 08/17/18 18:50 98 26 100 Facial 100 08/17/18 18:16 194/68 08/17/18 18:00 103 22 190/68 (108) 98 08/17/18 17:00 90 28 110/44 (66) 97 08/17/18 16:01 96 28 122/45 (70) 97 08/17/18 16:00 Non-Rebreather Non-Rebreather 08/17/18 16:00 99 08/17/18 15:00 98.7 89 22 160/58 (92) 98 98.7 General Appearance: alert, mild distress EENT: PERRL/EOMI, other - FM oxygen Neck: non-tender, supple Rhythm: Afib Cardiovascular: tachycardia, irregularly irregular Respiratory/Chest: other - few crackles at R base Abdomen: non tender, soft Extremities: no swelling Intake and Output 08/17/18 08/18/18 19:00 07:00 Intake Total 690 ml 20 ml Output Total 50 ml 50 ml Balance 640 ml -30 ml Intake Oral 20 ml IV Total 210 ml Tube Feeding 480 ml Output Urine Total 50 ml 50 ml # Bowel Movements 6 1 Laboratory Tests Test 08/17/18 15:35 08/18/18 03:30 08/18/18 04:00 08/18/18 10:10 Arterial Blood pH 7.446 (7.350-7.450) 7.387 (7.350-7.450) Arterial Blood Partial Pressure CO2 47.8 mmHg (35.0-45.0) H 55.3 mmHg (35.0-45.0) *H Arterial Blood Partial Pressure O2 83.3 mmHg (75.0-100.0) 42.5 mmHg (75.0-100.0) Arterial Blood HCO3 32.2 mmol/L (22.0-26.0) H 32.5 mmol/L (22.0-26.0) H Arterial Blood Oxygen Saturation 95.2 % (95-100) 71.8 % (95-100) *L Arterial Blood Base Excess 7.2 (-2-2) H 6.1 (-2-2) H Ugo Test Positive Positive White Blood Count 14.1 K/UL (4.8-10.8) H Red Blood Count 3.33 M/UL (4.70-6.10) L Hemoglobin 10.8 G/DL (14.2-18.0) L Hematocrit 31.9 % (42.0-52.0) L Mean Corpuscular Volume 96 FL (80-99) Mean Corpuscular Hemoglobin 32.5 PG (27.0-31.0) H Mean Corpuscular Hemoglobin Concent 33.9 G/DL (32.0-36.0) Red Cell Distribution Width 17.3 % (11.6-14.8) H Platelet Count 171 K/UL (150-450) Mean Platelet Volume 6.7 FL (6.5-10.1) Neutrophils (%) (Auto) 81.1 % (45.0-75.0) H Lymphocytes (%) (Auto) 6.8 % (20.0-45.0) L Monocytes (%) (Auto) 9.5 % (1.0-10.0) Eosinophils (%) (Auto) 2.1 % (0.0-3.0) Basophils (%) (Auto) 0.6 % (0.0-2.0) Sodium Level 143 MMOL/L (136-145) Potassium Level 2.9 MMOL/L (3.5-5.1) L Chloride Level 99 MMOL/L (98-107) Carbon Dioxide Level 29 MMOL/L (21-32) Anion Gap 15 mmol/L (5-15) Blood Urea Nitrogen 66 mg/dL (7-18) H Creatinine 7.2 MG/DL (0.55-1.30) H Estimat Glomerular Filtration Rate mL/min (>60) Glucose Level 128 MG/DL (74-106) H Uric Acid 6.4 MG/DL (2.6-7.2) Calcium Level 8.7 MG/DL (8.5-10.1) Phosphorus Level 5.5 MG/DL (2.5-4.9) H Magnesium Level 2.0 MG/DL (1.8-2.4) Total Bilirubin 1.5 MG/DL (0.2-1.0) H Direct Bilirubin 0.6 MG/DL (0.0-0.3) H Aspartate Amino Transf (AST/SGOT) 65 U/L (15-37) H Alanine Aminotransferase (ALT/SGPT) 127 U/L (12-78) H Alkaline Phosphatase 132 U/L (46-116) H Troponin I 1.377 ng/mL (0.000-0.056) C-Reactive Protein, Quantitative 21.6 mg/dL (0.00-0.90) H 25.0 mg/dL (0.00-0.90) H Pro-B-Type Natriuretic Peptide > 52512 pg/mL (0-125) H Total Protein 6.3 G/DL (6.4-8.2) L Albumin 2.3 G/DL (3.4-5.0) L Globulin 4.0 g/dL Albumin/Globulin Ratio 0.6 (1.0-2.7) L Microbiology Date/Time Source Procedure Growth Status 08/15/18 17:50 Sputum Expectorated Gram Stain - Final Complete 08/15/18 17:50 Sputum Expectorated Sputum Culture - Final NORMAL UPPER RESPIRATORY TOÑO PRESENT Complete Kyra Barillas MD Aug 18, 2018 14:54
[2018-08-18] MEDS ORDERED: Metoprolol 5mg/5ml Inj IVP SCH (15:12)
[2018-08-18] MEDS: Dyna-Hex 2% Top Sol 2oz TOPIC SCH (20:02)
--- NOTE | 2018-08-18 21:14 | Infectious Diseases Prog Note ---
Assessment/Plan Problems: (1) HCAP (healthcare-associated pneumonia) Assessment & Plan: S/P code , extubated , on BIPAP , continue zosyn and vancomycin empirically for 10 days total , repeated sputum culture showed normal respiratory [place] , aspiration precaution and keep HOB > 30 degree . EOT 08/22/18 (2) Acute respiratory failure Assessment & Plan: due to the above, S/P code , extubated on BIPAP , continue inhalers , monitor CXR , pulmonary is following (3) Coagulopathy Assessment & Plan: resolved , off anticoagulation , monitor INR, cardiology is following (4) Hemoptysis Assessment & Plan: due to the above , improving , monitor H/H , transfuse blood as needed, monitor CXR . (5) ESRD (end stage renal disease) on dialysis Assessment & Plan: on HD , renal is following (6) Cardiac ischemia Assessment & Plan: with elevated troponin , now off anticoagulation, cardiology is following Subjective ROS Limited/Unobtainable: Yes Allergies: Coded Allergies: BANANA (Verified Allergy, Severe, 08/12/18) GIL (Verified Allergy, Severe, 08/12/18) CARROT (Verified Allergy, Severe, 08/12/18) Dairy (Verified Allergy, Severe, 08/12/18) GRAPE (Verified Allergy, Severe, 08/12/18) Pork (Verified Allergy, Severe, 08/12/18) Potato (Verified Allergy, Severe, 08/12/18) Subjective he was extubated and started on BIPAP , comfortable in ICU , follows commands, NAD Objective Vital Signs Last 24 Hour Vital Signs Date Time Temp Pulse Resp B/P (MAP) Pulse Ox O2 Delivery O2 Flow Rate FiO2 08/18/18 20:55 101 18 99 Facial 40 08/18/18 19:34 164/74 08/18/18 19:25 115 20 100 Facial 50 08/18/18 19:25 100 Bi-pap 50 08/18/18 19:25 Bi-pap 60 08/18/18 19:00 101 20 159/66 (97) 97 08/18/18 18:00 103 20 165/60 (95) 97 08/18/18 17:00 104 22 144/58 (86) 97 08/18/18 16:52 110 19 100 Facial 70 08/18/18 16:00 97.5 101 16 147/53 (84) 100 97.5 08/18/18 16:00 60 08/18/18 16:00 Bi-pap Bi-pap 08/18/18 16:00 101 08/18/18 15:00 103 21 169/68 (101) 98 08/18/18 14:00 104 15 143/70 (94) 96 18 13:26 176/58 18 13:26 176/58 08/18/18 13:08 106 25 100 Facial 70 08/18/18 13:00 103 12 176/58 (97) 99 08/18/18 12:00 60 08/18/18 12:00 98 08/18/18 12:00 98.2 105 12 160/55 (90) 99 98.2 08/18/18 12:00 Bi-pap Bi-pap 08/18/18 11:20 99 17 99 Facial 70 08/18/18 11:00 110 12 180/65 (103) 99 08/18/18 10:00 94 12 132/55 (80) 98 08/18/18 09:37 08/18/18 09:34 93 22 96 Facial 80 08/18/18 09:10 Bi-pap 80 08/18/18 09:00 80 170/71 08/18/18 09:00 90 15 170/70 (103) 98 08/18/18 08:00 98.0 95 15 175/74 (107) 97 98.0 08/18/18 08:00 98 08/18/18 08:00 Bi-pap Bi-pap 08/18/18 07:30 94 25 98 Facial 60 08/18/18 07:00 Bi-pap 60 08/18/18 07:00 97 Bi-pap 60 08/18/18 07:00 91 15 158/66 (96) 98 08/18/18 06:41 97.3 08/18/18 06:10 97.3 08/18/18 06:00 91 15 193/66 (108) 99 08/18/18 05:50 182/63 08/18/18 05:40 90 22 100 Facial 60 08/18/18 05:00 60 08/18/18 05:00 91 15 182/63 (102) 99 08/18/18 04:00 70 08/18/18 04:00 93 08/18/18 04:00 Bi-pap Bi-pap 08/18/18 04:00 97.3 93 18 156/62 (93) 100 97.3 08/18/18 03:33 191/68 08/18/18 03:28 90 18 100 Facial 70 08/18/18 03:00 89 18 192/80 (117) 100 08/18/18 02:00 82 18 152/54 (86) 100 08/18/18 01:16 85 16 100 Facial 80 08/18/18 01:00 82 18 160/54 (89) 100 08/18/18 00:00 83 08/18/18 00:00 Bi-pap Bi-pap 08/18/18 00:00 97.9 83 18 136/56 (82) 100 97.9 08/18/18 00:00 70 08/17/18 23:18 90 24 100 Facial 90 08/17/18 23:18 90 24 Bi-pap 90 08/17/18 23:03 99.0 08/17/18 23:00 86 18 172/65 (100) 100 08/17/18 22:11 140/62 08/17/18 22:00 95 20 140/62 (88) 98 Height (Feet): 5 Height (Inches): 8.00 Weight (Pounds): 130 General Appearance: WD/WN, no acute distress HEENT: normocephalic, atraumatic, anicteric, mucous membranes moist, PERRL, EOMI, pharynx normal, supple, no JVD Respiratory/Chest: chest wall non-tender, no respiratory distress, no accessory muscle use, decreased breath sounds, crackles/rales Cardiovascular: normal peripheral pulses, normal rate, regular rhythm, no gallop/murmur, no JVD Abdomen: normal bowel sounds, soft, non tender, no organomegaly, non distended , no mass, no scars Genitourinary: normal external genitalia Extremities: no cyanosis, no clubbing Skin: no rash, no lesions, no ulcers Neurologic/Psychiatric: alert, responsive Lymphatic: no neck adenopathy, no groin adenopathy Musculoskeletal: normal muscle bulk, no effusion Laboratory Tests Test 08/18/18 03:30 08/18/18 04:00 08/18/18 10:10 White Blood Count 14.1 K/UL (4.8-10.8) H Red Blood Count 3.33 M/UL (4.70-6.10) L Hemoglobin 10.8 G/DL (14.2-18.0) L Hematocrit 31.9 % (42.0-52.0) L Mean Corpuscular Volume 96 FL (80-99) Mean Corpuscular Hemoglobin 32.5 PG (27.0-31.0) H Mean Corpuscular Hemoglobin Concent 33.9 G/DL (32.0-36.0) Red Cell Distribution Width 17.3 % (11.6-14.8) H Platelet Count 171 K/UL (150-450) Mean Platelet Volume 6.7 FL (6.5-10.1) Neutrophils (%) (Auto) 81.1 % (45.0-75.0) H Lymphocytes (%) (Auto) 6.8 % (20.0-45.0) L Monocytes (%) (Auto) 9.5 % (1.0-10.0) Eosinophils (%) (Auto) 2.1 % (0.0-3.0) Basophils (%) (Auto) 0.6 % (0.0-2.0) Sodium Level 143 MMOL/L (136-145) Potassium Level 2.9 MMOL/L (3.5-5.1) L Chloride Level 99 MMOL/L (98-107) Carbon Dioxide Level 29 MMOL/L (21-32) Anion Gap 15 mmol/L (5-15) Blood Urea Nitrogen 66 mg/dL (7-18) H Creatinine 7.2 MG/DL (0.55-1.30) H Estimat Glomerular Filtration Rate mL/min (>60) Glucose Level 128 MG/DL (74-106) H Uric Acid 6.4 MG/DL (2.6-7.2) Calcium Level 8.7 MG/DL (8.5-10.1) Phosphorus Level 5.5 MG/DL (2.5-4.9) H Magnesium Level 2.0 MG/DL (1.8-2.4) Total Bilirubin 1.5 MG/DL (0.2-1.0) H Direct Bilirubin 0.6 MG/DL (0.0-0.3) H Aspartate Amino Transf (AST/SGOT) 65 U/L (15-37) H Alanine Aminotransferase (ALT/SGPT) 127 U/L (12-78) H Alkaline Phosphatase 132 U/L (46-116) H Troponin I 1.377 ng/mL (0.000-0.056) C-Reactive Protein, Quantitative 21.6 mg/dL (0.00-0.90) H 25.0 mg/dL (0.00-0.90) H Pro-B-Type Natriuretic Peptide > 74899 pg/mL (0-125) H Total Protein 6.3 G/DL (6.4-8.2) L Albumin 2.3 G/DL (3.4-5.0) L Globulin 4.0 g/dL Albumin/Globulin Ratio 0.6 (1.0-2.7) L Arterial Blood pH 7.387 (7.350-7.450) Arterial Blood Partial Pressure CO2 55.3 mmHg (35.0-45.0) *H Arterial Blood Partial Pressure O2 42.5 mmHg (75.0-100.0) Arterial Blood HCO3 32.5 mmol/L (22.0-26.0) H Arterial Blood Oxygen Saturation 71.8 % (95-100) *L Arterial Blood Base Excess 6.1 (-2-2) H Ugo Test Positive Current Medications Medications (Trade) Dose Ordered Sig/Kris Route PRN Reason Start Time Stop Time Status Last Admin Dose Admin Acetaminophen (Tylenol) 650 mg Q4H PRN ORAL pain and Temp of 100 F 08/15/18 17:00 09/11/18 16:59 Albuterol/ Ipratropium (Albuterol/ Ipratropium) 3 ml Q4H PRN HHN sob 08/17/18 06:45 08/22/18 06:44 Chlorhexidine Gluconate (Anni-Hex 2%) 1 applic DAILY@1999 TOPIC 08/18/18 20:00 09/17/18 19:59 08/18/18 20:02 Docusate Sodium (Colace) 100 mg THREE TIMES A DAY ORAL 08/15/18 18:00 09/11/18 12:59 08/16/18 18:27 Epoetin Issa (Procrit (for ESRD on dialysis)) 10,000 units SUN-SUN-SUN SUBQ 08/16/18 21:00 09/11/18 20:59 08/16/18 21:04 Hydralazine HCl (Apresoline) 10 mg Q4H PRN IV bp > 160 syst when not agitate 08/17/18 16:49 09/16/18 16:48 08/18/18 19:34 Hydralazine HCl (Apresoline) 25 mg Q8HR ORAL 08/15/18 22:00 09/11/18 13:59 08/18/18 05:50 Lorazepam (Ativan 2mg/ml 1ml) 2 mg Q4H PRN IV Agitation 08/16/18 14:00 08/22/18 17:29 08/18/18 20:16 Metoprolol Tartrate (Lopressor) 2.5 mg QIDPRN IVP 08/18/18 15:12 09/17/18 15:11 Metoprolol Tartrate (Lopressor) 25 mg EVERY 8 HOURS ORAL 08/18/18 22:00 09/14/18 20:59 Morphine Sulfate (Morphine Sulfate) 4 mg Q4H PRN IVP For Pain 08/15/18 17:30 08/22/18 17:29 08/18/18 06:10 Ondansetron HCl (Zofran) 4 mg Q6H PRN IVP Nausea & Vomiting 08/15/18 17:00 09/11/18 16:59 Pantoprazole (Protonix) 40 mg EVERY 12 HOURS IVP 08/15/18 21:00 09/14/18 20:59 08/18/18 20:16 Piperacillin Sod/ Tazobactam Sod 2.25 gm/Dextrose 55 ml @ 110 mls/hr Q8H IVPB 08/15/18 18:00 08/23/18 17:59 08/18/18 18:29 Vancomycin HCl (Vanco rx to dose) 1 ea DAILY PRN MISC Per rx protocol 08/15/18 17:30 09/14/18 17:29 Donte Null M.D. Aug 18, 2018 21:13
--- NOTE | 2018-08-18 22:20 | Diagnostic Imaging Report ---
APPROVED REPORT CPT Code: 52272 Present Symptoms Comments: R/O DVT BILATERAL: Imaging reveals a patent deep venous system bilaterally. There is no evidence of thrombus within the femoral, popliteal or tibial segments. The greater saphenous veins are also within normal limits. Doppler indicates normal spontaneous flow within these segments.
[2018-08-19] VITALS (24 sets, daily range): BP systolic 129–186; BP diastolic 41–86
[2018-08-19] MEDS: Piperacillin/Tazobactam 2.25 GM in D5W 55 ML IVPB SCH ×3 (01:32→17:44)
[2018-08-19 05:35] LABS: BASOPHILS % (AUTO) 0.4 % (0.0-2.0); HEMATOCRIT 32.2 % (42.0-52.0); LYMPHOCYTES % (AUTO) 3.8 % (20.0-45.0); MEAN CORPUSCULAR VOLUME 97 FL (80-99); MONOCYTES % (AUTO) 9.6 % (1.0-10.0); NEUTROPHILS % (AUTO) 84.2 % (45.0-75.0); PLATELET COUNT 178 K/UL (150-450); RED BLOOD COUNT 3.33 M/UL (4.70-6.10); RED CELL DISTRIBUTION WIDTH 17.5 % (11.6-14.8); WHITE BLOOD COUNT 15.8 K/UL (4.8-10.8)
[2018-08-19] MEDS: HydrALAZINE 25mg tab ORAL SCH ×3 (05:41→21:42)
[2018-08-19] MEDS: Metoprolol 25mg tab ORAL SCH ×2 (05:41→14:41)
[2018-08-19 05:51] LABS: ALANINE AMINOTRANSFERASE 96 U/L (12-78); ALBUMIN 2.4 G/DL (3.4-5.0); ALBUMIN/GLOBULIN RATIO 0.6 (1.0-2.7); ALKALINE PHOSPHATASE 129 U/L (46-116); ANION GAP 15 mmol/L (5-15); ASPARTATE AMINO TRANSFERASE 43 U/L (15-37); BILIRUBIN,TOTAL 1.5 MG/DL (0.2-1.0); BLOOD UREA NITROGEN 53 mg/dL (7-18); CARBON DIOXIDE 27 MMOL/L (21-32); CHLORIDE 101 MMOL/L (98-107); CREATININE 6.3 MG/DL (0.55-1.30); POTASSIUM 3.4 MMOL/L (3.5-5.1); SODIUM 143 MMOL/L (136-145)
[2018-08-19 06:03] LABS: BILIRUBIN,DIRECT 0.6 MG/DL (0.0-0.3)
[2018-08-19] MEDS ORDERED: Vancomycin 1gm/D5W 275ml IVPB ONE ×2 (07:00)
[2018-08-19] MEDS: Docusate 100mg cap ORAL SCH ×3 (09:00→17:44)
[2018-08-19] MEDS: Pantoprazole Inj IVP SCH ×2 (09:00→20:33)
--- NOTE | 2018-08-19 10:33 | Pulmonolgy Critical Care Note ---
Critical Care - Asmt/Plan Problems: (1) Acute respiratory failure (2) Cardiac arrest (3) Interstitial lung disease (4) Anemia (5) COPD (chronic obstructive pulmonary disease) (6) ESRD (end stage renal disease) on dialysis Respiratory: monitor respiratory rate, adjust FIO2, CXR Cardiac: continue to monitor HR/BP Renal: F/U I&O, keep IV fluid, increase IV fluid Infectious Disease: add antibiotics Gastrointestinal: continue feedings/current rate Endocrine: monitor blood sugar Prophylaxis: Protonix Notes Reviewed: geotechnical department manager, cardio, renal, ID Discussed with: nurses, consultants, manager of case managementmobile development manager - Objective Last 24 Hour Vital Signs Date Time Temp Pulse Resp B/P (MAP) Pulse Ox O2 Delivery O2 Flow Rate FiO2 08/19/18 10:00 94 22 150/65 (93) 100 08/19/18 09:21 98 27 98 Facial 40 08/19/18 09:00 98 22 156/60 (92) 100 08/19/18 08:00 108 08/19/18 08:00 40 08/19/18 08:00 Bi-pap Bi-pap 08/19/18 08:00 98.5 80 22 155/66 (95) 100 98.5 08/19/18 07:00 81 22 158/64 (95) 100 08/19/18 06:45 88 32 97 Facial 40 08/19/18 06:45 97 Bi-pap 40 08/19/18 06:45 Bi-pap 40 08/19/18 06:00 86 27 147/69 (95) 98 08/19/18 05:41 96 161/69 08/19/18 05:41 161/69 08/19/18 05:17 97 23 97 Facial 40 08/19/18 05:00 102 24 170/71 (104) 97 08/19/18 04:00 40 08/19/18 04:00 Bi-pap Bi-pap 08/19/18 04:00 97.5 98 20 165/71 (102) 97 97.5 08/19/18 03:37 105 08/19/18 03:10 94 24 96 Facial 40 08/19/18 03:00 95 22 162/69 (100) 96 08/19/18 02:00 91 21 149/54 (85) 96 08/19/18 01:00 90 20 129/50 (76) 97 08/19/18 00:57 101 22 97 Facial 40 08/19/18 00:00 Bi-pap Bi-pap 08/19/18 00:00 40 08/19/18 00:00 98.0 94 20 147/78 (101) 97 98.0 08/18/18 23:32 90 08/18/18 23:03 106 18 97 Facial 40 08/18/18 23:00 96 20 148/60 (89) 96 08/18/18 22:00 97 16 143/69 (93) 96 08/18/18 22:00 90 138/52 08/18/18 22:00 138/52 08/18/18 21:00 40 08/18/18 21:00 100 19 141/46 (77) 98 08/18/18 20:55 101 18 99 Facial 40 08/18/18 20:00 108 08/18/18 20:00 97.7 108 20 164/64 (97) 99 97.7 08/18/18 20:00 Bi-pap Bi-pap 08/18/18 20:00 50 08/18/18 19:34 164/74 08/18/18 19:25 115 20 100 Facial 50 08/18/18 19:25 100 Bi-pap 50 08/18/18 19:25 Bi-pap 60 08/18/18 19:00 101 20 159/66 (97) 97 08/18/18 18:00 103 20 165/60 (95) 97 08/18/18 17:00 104 22 144/58 (86) 97 08/18/18 16:52 110 19 100 Facial 70 08/18/18 16:00 97.5 101 16 147/53 (84) 100 97.5 08/18/18 16:00 60 08/18/18 16:00 Bi-pap Bi-pap 08/18/18 16:00 101 08/18/18 15:00 103 21 169/68 (101) 98 08/18/18 14:00 104 15 143/70 (94) 96 18 13:26 176/58 18 13:26 176/58 08/18/18 13:08 106 25 100 Facial 70 08/18/18 13:00 103 12 176/58 (97) 99 08/18/18 12:00 60 08/18/18 12:00 98 10/21/18 12:00 98.2 105 12 160/55 (90) 99 98.2 08/18/18 12:00 Bi-pap Bi-pap 08/18/18 11:20 99 17 99 Facial 70 08/18/18 11:00 110 12 180/65 (103) 99 Status: awake Condition: critical HEENT: atraumatic Lungs: rales, rhonchi Heart: HR/BP stable Abdomen: soft Extremities: no C/C/E, edema Critical Care - Subjective ROS Limited/Unobtainable: No ICU Day: 4 Interval Events: on BIPAP FI02: 40 Sputum Amount: None PEEP: 0.0 Tube Feeding Amount: 40 I&O: Intake and Output 08/18/18 08/19/18 19:00 07:00 Intake Total 55 ml 329 ml Output Total 2000 ml 1 ml Balance -1945 ml 328 ml Intake Oral 100 ml IV Total 55 ml 99 ml Other 130 ml Output Urine Total 0 ml 1 ml Hemodialysis UF 2000 ml # Bowel Movements 3 CXR: bilateral pulmonary edema ET-Tube: 7.0 ET Position: 22 Labs: Laboratory Tests Test 08/19/18 04:35 08/19/18 08:00 White Blood Count 15.8 K/UL (4.8-10.8) H Red Blood Count 3.33 M/UL (4.70-6.10) L Hemoglobin 11.0 G/DL (14.2-18.0) L Hematocrit 32.2 % (42.0-52.0) L Mean Corpuscular Volume 97 FL (80-99) Mean Corpuscular Hemoglobin 33.0 PG (27.0-31.0) H Mean Corpuscular Hemoglobin Concent 34.1 G/DL (32.0-36.0) Red Cell Distribution Width 17.5 % (11.6-14.8) H Platelet Count 178 K/UL (150-450) Mean Platelet Volume 7.9 FL (6.5-10.1) Neutrophils (%) (Auto) 84.2 % (45.0-75.0) H Lymphocytes (%) (Auto) 3.8 % (20.0-45.0) L Monocytes (%) (Auto) 9.6 % (1.0-10.0) Eosinophils (%) (Auto) 2.0 % (0.0-3.0) Basophils (%) (Auto) 0.4 % (0.0-2.0) Sodium Level 143 MMOL/L (136-145) Potassium Level 3.4 MMOL/L (3.5-5.1) L Chloride Level 101 MMOL/L (98-107) Carbon Dioxide Level 27 MMOL/L (21-32) Anion Gap 15 mmol/L (5-15) Blood Urea Nitrogen 53 mg/dL (7-18) H Creatinine 6.3 MG/DL (0.55-1.30) H Estimat Glomerular Filtration Rate mL/min (>60) Glucose Level 105 MG/DL (74-106) Uric Acid 6.1 MG/DL (2.6-7.2) Calcium Level 9.0 MG/DL (8.5-10.1) Phosphorus Level 6.0 MG/DL (2.5-4.9) H Magnesium Level 2.0 MG/DL (1.8-2.4) Total Bilirubin 1.5 MG/DL (0.2-1.0) H Direct Bilirubin 0.6 MG/DL (0.0-0.3) H Aspartate Amino Transf (AST/SGOT) 43 U/L (15-37) H Alanine Aminotransferase (ALT/SGPT) 96 U/L (12-78) H Alkaline Phosphatase 129 U/L (46-116) H Troponin I 0.626 ng/mL (0.000-0.056) Pro-B-Type Natriuretic Peptide > 70755 pg/mL (0-125) H Total Protein 6.5 G/DL (6.4-8.2) Albumin 2.4 G/DL (3.4-5.0) L Globulin 4.1 g/dL Albumin/Globulin Ratio 0.6 (1.0-2.7) L Thyroid Stimulating Hormone (TSH) 0.645 uiU/mL (0.358-3.740) Random Vancomycin Level 16.8 ug/mL Arterial Blood pH 7.420 (7.350-7.450) Arterial Blood Partial Pressure CO2 40.8 mmHg (35.0-45.0) Arterial Blood Partial Pressure O2 83.1 mmHg (75.0-100.0) Arterial Blood HCO3 26.2 mmol/L (22.0-26.0) H Arterial Blood Oxygen Saturation 95.8 % (95-100) Arterial Blood Base Excess 1.7 (-2-2) Ugo Test Positive Darius Watson MD Aug 19, 2018 10:33
--- NOTE | 2018-08-19 11:20 | Diagnostic Imaging Report ---
Indication: Dyspnea Comparison: 08/18/2018 A single view chest radiograph was obtained. Findings: Interstitial edema suspected with prominent vascularity and heart size. This appears mild to moderate degree and is grossly unchanged. Right jugular central venous catheter projected over the right atrium. Small bilateral pleural effusion suspected. IMPRESSION: No significant change. CHF
--- NOTE | 2018-08-19 14:26 | General Progress Note ---
Assessment/Plan Problem List: (1) Respiratory arrest ICD Codes: R09.2 - Respiratory arrest SNOMED: 46411085 (2) Aspiration pneumonia ICD Codes: J69.0 - Pneumonitis due to inhalation of food and vomit SNOMED: 630029615 (3) Hemoptysis ICD Codes: R04.2 - Hemoptysis SNOMED: 38875518 (4) ESRD (end stage renal disease) on dialysis ICD Codes: N18.6 - End stage renal failure on dialysis; Z99.2 - Dependence on renal dialysis SNOMED: 314656418 (5) Hypertension ICD Codes: I10 - Hypertension SNOMED: 15133943 (6) Cardiac ischemia ICD Codes: I25.9 - Chronic ischemic heart disease, unspecified SNOMED: 503151884 Status: stable Assessment/Plan self extubated 08/17 pulm support diacussed with 2 daughters at bed side transfuse 2 units- 08/16 HD 08/16 again 08/18 and 08/20 refused HD 08/15 by patient despite of mediation by family vent support Sedation as needed discussed with FERNANDA K supplement watch for Anemia FFP and Vit K given 08/13 2 D echo Cardiomyopathy Cardiology eval noted- discussed with Dr Thakkar Anti platelets / Anti coag / Cardiac Cath... Subjective ROS Limited/Unobtainable: No Constitutional: Reports: malaise Allergies: Coded Allergies: BANANA (Verified Allergy, Severe, 08/12/18) GIL (Verified Allergy, Severe, 08/12/18) CARROT (Verified Allergy, Severe, 08/12/18) Dairy (Verified Allergy, Severe, 08/12/18) GRAPE (Verified Allergy, Severe, 08/12/18) Pork (Verified Allergy, Severe, 08/12/18) Potato (Verified Allergy, Severe, 08/12/18) Objective Last 24 Hour Vital Signs Date Time Temp Pulse Resp B/P (MAP) Pulse Ox O2 Delivery O2 Flow Rate FiO2 08/19/18 12:00 Bi-pap Bi-pap 08/19/18 12:00 98.6 90 20 149/65 (93) 100 98.6 08/19/18 12:00 92 08/19/18 12:00 40 08/19/18 11:30 80 22 97 08/19/18 11:00 90 20 136/56 (82) 100 08/19/18 10:50 77 27 99 Facial 40 08/19/18 10:00 94 22 150/65 (93) 100 08/19/18 09:21 98 27 98 Facial 40 08/19/18 09:00 98 22 156/60 (92) 100 08/19/18 08:00 108 08/19/18 08:00 40 08/19/18 08:00 Bi-pap Bi-pap 08/19/18 08:00 98.5 80 22 155/66 (95) 100 98.5 08/19/18 07:00 81 22 158/64 (95) 100 08/19/18 06:45 88 32 97 Facial 40 08/19/18 06:45 97 Bi-pap 40 08/19/18 06:45 Bi-pap 40 08/19/18 06:00 86 27 147/69 (95) 98 08/19/18 05:41 96 161/69 08/19/18 05:41 161/69 08/19/18 05:17 97 23 97 Facial 40 08/19/18 05:00 102 24 170/71 (104) 97 08/19/18 04:00 40 08/19/18 04:00 Bi-pap Bi-pap 08/19/18 04:00 97.5 98 20 165/71 (102) 97 97.5 08/19/18 03:37 105 08/19/18 03:10 94 24 96 Facial 40 08/19/18 03:00 95 22 162/69 (100) 96 08/19/18 02:00 91 21 149/54 (85) 96 08/19/18 01:00 90 20 129/50 (76) 97 08/19/18 00:57 101 22 97 Facial 40 08/19/18 00:00 Bi-pap Bi-pap 08/19/18 00:00 40 08/19/18 00:00 98.0 94 20 147/78 (101) 97 98.0 08/18/18 23:32 90 08/18/18 23:03 106 18 97 Facial 40 08/18/18 23:00 96 20 148/60 (89) 96 08/18/18 22:00 97 16 143/69 (93) 96 08/18/18 22:00 90 138/52 08/18/18 22:00 138/52 08/18/18 21:00 40 08/18/18 21:00 100 19 141/46 (77) 98 08/18/18 20:55 101 18 99 Facial 40 08/18/18 20:00 108 08/18/18 20:00 97.7 108 20 164/64 (97) 99 97.7 08/18/18 20:00 Bi-pap Bi-pap 08/18/18 20:00 50 08/18/18 19:34 164/74 08/18/18 19:25 115 20 100 Facial 50 08/18/18 19:25 100 Bi-pap 50 08/18/18 19:25 Bi-pap 60 08/18/18 19:00 101 20 159/66 (97) 97 08/18/18 18:00 103 20 165/60 (95) 97 08/18/18 17:00 104 22 144/58 (86) 97 08/18/18 16:52 110 19 100 Facial 70 08/18/18 16:00 97.5 101 16 147/53 (84) 100 97.5 08/18/18 16:00 60 08/18/18 16:00 Bi-pap Bi-pap 08/18/18 16:00 101 08/18/18 15:00 103 21 169/68 (101) 98 Intake and Output 08/18/18 08/19/18 19:00 07:00 Intake Total 55 ml 329 ml Output Total 2000 ml 1 ml Balance -1945 ml 328 ml Intake Oral 100 ml IV Total 55 ml 99 ml Other 130 ml Output Urine Total 0 ml 1 ml Hemodialysis UF 2000 ml # Bowel Movements 3 Laboratory Tests 08/19/18 04:35: White Blood Count 15.8H, Red Blood Count 3.33L, Hemoglobin 11.0L, Hematocrit 32.2L, Mean Corpuscular Volume 97, Mean Corpuscular Hemoglobin 33.0H, Mean Corpuscular Hemoglobin Concent 34.1, Red Cell Distribution Width 17.5H, Platelet Count 178, Mean Platelet Volume 7.9, Neutrophils (%) (Auto) 84.2H, Lymphocytes (%) (Auto) 3.8L, Monocytes (%) (Auto) 9.6, Eosinophils (%) (Auto) 2.0, Basophils (%) (Auto) 0.4, Sodium Level 143, Potassium Level 3.4L, Chloride Level 101, Carbon Dioxide Level 27, Anion Gap 15, Blood Urea Nitrogen 53H, Creatinine 6.3H, Estimat Glomerular Filtration Rate , Glucose Level 105, Uric Acid 6.1, Calcium Level 9.0, Phosphorus Level 6.0H, Magnesium Level 2.0, Total Bilirubin 1.5H, Direct Bilirubin 0.6H, Aspartate Amino Transf (AST/SGOT) 43H, Alanine Aminotransferase (ALT/SGPT) 96H, Alkaline Phosphatase 129H, Troponin I 0.626H, Pro-B-Type Natriuretic Peptide > 12287V, Total Protein 6.5, Albumin 2.4L , Globulin 4.1, Albumin/Globulin Ratio 0.6L, Thyroid Stimulating Hormone (TSH) 0.645, Random Vancomycin Level 16.8 08/19/18 08:00: Arterial Blood pH 7.420, Arterial Blood Partial Pressure CO2 40.8, Arterial Blood Partial Pressure O2 83.1, Arterial Blood HCO3 26.2H, Arterial Blood Oxygen Saturation 95.8, Arterial Blood Base Excess 1.7, Ugo Test Positive Height (Feet): 5 Height (Inches): 8.00 Weight (Pounds): 121 General Appearance: no apparent distress Cardiovascular: tachycardia Respiratory/Chest: decreased breath sounds Abdomen: soft Objective on bipapa post self extubation Ady Gómez MD Aug 19, 2018 14:26
--- NOTE | 2018-08-19 17:50 | Infectious Diseases Prog Note ---
Assessment/Plan Problems: (1) HCAP (healthcare-associated pneumonia) Assessment & Plan: S/P code , extubated , on high flow oxygen , continue zosyn and vancomycin empirically for 10 days total , repeated sputum culture showed normal respiratory [place] , aspiration precaution and keep HOB > 30 degree . EOT 08/22/18 (2) Acute respiratory failure Assessment & Plan: due to the above, S/P code , extubated on high flow oxygen via mask , continue inhalers , monitor CXR , pulmonary is following (3) Coagulopathy Assessment & Plan: resolved , off anticoagulation , monitor INR, cardiology is following (4) Hemoptysis Assessment & Plan: due to the above , improving , monitor H/H , transfuse blood as needed, monitor CXR . (5) ESRD (end stage renal disease) on dialysis Assessment & Plan: on HD , renal is following (6) Cardiac ischemia Assessment & Plan: with elevated troponin , now off anticoagulation, cardiology is following Subjective Constitutional: Reports: no symptoms HEENT: Reports: no symptoms Respiratory: Reports: dry cough Breasts: Reports: no symptoms Cardiovascular: Reports: no symptoms Gastrointestinal/Abdominal: Reports: no symptoms Genitourinary: Reports: no symptoms Neurologic: Reports: no symptoms Psychiatric: Reports: no symptoms Skin: Reports: no symptoms Endocrine: Reports: no symptoms Hematologic: Reports: no symptoms Musculoskeletal: Reports: no symptoms Allergies: Coded Allergies: BANANA (Verified Allergy, Severe, 08/12/18) GIL (Verified Allergy, Severe, 08/12/18) CARROT (Verified Allergy, Severe, 08/12/18) Dairy (Verified Allergy, Severe, 08/12/18) GRAPE (Verified Allergy, Severe, 08/12/18) Pork (Verified Allergy, Severe, 08/12/18) Potato (Verified Allergy, Severe, 08/12/18) Subjective he was extubated and started on BIPAP , comfortable in ICU , follows commands, NAD Objective Vital Signs Last 24 Hour Vital Signs Date Time Temp Pulse Resp B/P (MAP) Pulse Ox O2 Delivery O2 Flow Rate FiO2 08/19/18 17:00 97 22 172/83 (112) 97 08/19/18 16:00 96 08/19/18 16:00 93 22 172/83 (112) 97 08/19/18 16:00 Venturi Mask Bi-pap 08/19/18 15:00 83 23 153/47 (82) 97 10/22/18 14:41 83 151/62 08/19/18 14:41 151/62 08/19/18 14:00 83 23 151/62 (91) 97 08/19/18 13:00 86 24 142/41 (74) 97 08/19/18 12:00 Bi-pap Bi-pap 08/19/18 12:00 98.6 90 20 149/65 (93) 100 98.6 08/19/18 12:00 92 08/19/18 12:00 40 08/19/18 11:30 80 22 97 08/19/18 11:00 90 20 136/56 (82) 100 08/19/18 10:50 77 27 99 Facial 40 08/19/18 10:00 94 22 150/65 (93) 100 08/19/18 09:21 98 27 98 Facial 40 08/19/18 09:00 98 22 156/60 (92) 100 08/19/18 08:00 108 08/19/18 08:00 40 08/19/18 08:00 Bi-pap Bi-pap 08/19/18 08:00 98.5 80 22 155/66 (95) 100 98.5 08/19/18 07:00 81 22 158/64 (95) 100 08/19/18 06:45 88 32 97 Facial 40 08/19/18 06:45 97 Bi-pap 40 08/19/18 06:45 Bi-pap 40 08/19/18 06:00 86 27 147/69 (95) 98 08/19/18 05:41 96 161/69 08/19/18 05:41 161/69 08/19/18 05:17 97 23 97 Facial 40 08/19/18 05:00 102 24 170/71 (104) 97 08/19/18 04:00 40 08/19/18 04:00 Bi-pap Bi-pap 08/19/18 04:00 97.5 98 20 165/71 (102) 97 97.5 08/19/18 03:37 105 08/19/18 03:10 94 24 96 Facial 40 08/19/18 03:00 95 22 162/69 (100) 96 08/19/18 02:00 91 21 149/54 (85) 96 08/19/18 01:00 90 20 129/50 (76) 97 08/19/18 00:57 101 22 97 Facial 40 08/19/18 00:00 Bi-pap Bi-pap 08/19/18 00:00 40 08/19/18 00:00 98.0 94 20 147/78 (101) 97 98.0 08/18/18 23:32 90 08/18/18 23:03 106 18 97 Facial 40 08/18/18 23:00 96 20 148/60 (89) 96 08/18/18 22:00 97 16 143/69 (93) 96 08/18/18 22:00 90 138/52 08/18/18 22:00 138/52 08/18/18 21:00 40 08/18/18 21:00 100 19 141/46 (77) 98 08/18/18 20:55 101 18 99 Facial 40 08/18/18 20:00 108 08/18/18 20:00 97.7 108 20 164/64 (97) 99 97.7 08/18/18 20:00 Bi-pap Bi-pap 08/18/18 20:00 50 08/18/18 19:34 164/74 08/18/18 19:25 115 20 100 Facial 50 08/18/18 19:25 100 Bi-pap 50 08/18/18 19:25 Bi-pap 60 08/18/18 19:00 101 20 159/66 (97) 97 08/18/18 18:00 103 20 165/60 (95) 97 Height (Feet): 5 Height (Inches): 8.00 Weight (Pounds): 121 General Appearance: WD/WN, no acute distress, cachetic, other - on high flow oxygen HEENT: normocephalic, atraumatic, anicteric, mucous membranes moist, PERRL Respiratory/Chest: chest wall non-tender, no respiratory distress, no accessory muscle use, decreased breath sounds, crackles/rales Cardiovascular: normal peripheral pulses, normal rate, regular rhythm, no gallop/murmur, no JVD Abdomen: normal bowel sounds, soft, non tender, no organomegaly, non distended , no mass, no scars Extremities: no cyanosis, no clubbing Skin: no rash, no lesions, no ulcers Neurologic/Psychiatric: alert, responsive Lymphatic: no neck adenopathy, no groin adenopathy Laboratory Tests Test 08/19/18 04:35 08/19/18 08:00 White Blood Count 15.8 K/UL (4.8-10.8) H Red Blood Count 3.33 M/UL (4.70-6.10) L Hemoglobin 11.0 G/DL (14.2-18.0) L Hematocrit 32.2 % (42.0-52.0) L Mean Corpuscular Volume 97 FL (80-99) Mean Corpuscular Hemoglobin 33.0 PG (27.0-31.0) H Mean Corpuscular Hemoglobin Concent 34.1 G/DL (32.0-36.0) Red Cell Distribution Width 17.5 % (11.6-14.8) H Platelet Count 178 K/UL (150-450) Mean Platelet Volume 7.9 FL (6.5-10.1) Neutrophils (%) (Auto) 84.2 % (45.0-75.0) H Lymphocytes (%) (Auto) 3.8 % (20.0-45.0) L Monocytes (%) (Auto) 9.6 % (1.0-10.0) Eosinophils (%) (Auto) 2.0 % (0.0-3.0) Basophils (%) (Auto) 0.4 % (0.0-2.0) Sodium Level 143 MMOL/L (136-145) Potassium Level 3.4 MMOL/L (3.5-5.1) L Chloride Level 101 MMOL/L (98-107) Carbon Dioxide Level 27 MMOL/L (21-32) Anion Gap 15 mmol/L (5-15) Blood Urea Nitrogen 53 mg/dL (7-18) H Creatinine 6.3 MG/DL (0.55-1.30) H Estimat Glomerular Filtration Rate mL/min (>60) Glucose Level 105 MG/DL (74-106) Uric Acid 6.1 MG/DL (2.6-7.2) Calcium Level 9.0 MG/DL (8.5-10.1) Phosphorus Level 6.0 MG/DL (2.5-4.9) H Magnesium Level 2.0 MG/DL (1.8-2.4) Total Bilirubin 1.5 MG/DL (0.2-1.0) H Direct Bilirubin 0.6 MG/DL (0.0-0.3) H Aspartate Amino Transf (AST/SGOT) 43 U/L (15-37) H Alanine Aminotransferase (ALT/SGPT) 96 U/L (12-78) H Alkaline Phosphatase 129 U/L (46-116) H Troponin I 0.626 ng/mL (0.000-0.056) Pro-B-Type Natriuretic Peptide > 32713 pg/mL (0-125) H Total Protein 6.5 G/DL (6.4-8.2) Albumin 2.4 G/DL (3.4-5.0) L Globulin 4.1 g/dL Albumin/Globulin Ratio 0.6 (1.0-2.7) L Thyroid Stimulating Hormone (TSH) 0.645 uiU/mL (0.358-3.740) Random Vancomycin Level 16.8 ug/mL Arterial Blood pH 7.420 (7.350-7.450) Arterial Blood Partial Pressure CO2 40.8 mmHg (35.0-45.0) Arterial Blood Partial Pressure O2 83.1 mmHg (75.0-100.0) Arterial Blood HCO3 26.2 mmol/L (22.0-26.0) H Arterial Blood Oxygen Saturation 95.8 % (95-100) Arterial Blood Base Excess 1.7 (-2-2) Ugo Test Positive Current Medications Medications (Trade) Dose Ordered Sig/Kris Route PRN Reason Start Time Stop Time Status Last Admin Dose Admin Acetaminophen (Tylenol) 650 mg Q4H PRN ORAL pain and Temp of 100 F 08/15/18 17:00 09/11/18 16:59 08/19/18 05:11 Albuterol/ Ipratropium (Albuterol/ Ipratropium) 3 ml Q4H PRN HHN sob 08/17/18 06:45 08/22/18 06:44 Chlorhexidine Gluconate (Anni-Hex 2%) 1 applic DAILY@1999 TOPIC 08/18/18 20:00 09/17/18 19:59 08/18/18 20:02 Docusate Sodium (Colace) 100 mg THREE TIMES A DAY ORAL 08/15/18 18:00 09/11/18 12:59 08/19/18 17:44 Epoetin Issa (Procrit (for ESRD on dialysis)) 10,000 units MON-SUN-SUN SUBQ 08/16/18 21:00 09/11/18 20:59 08/16/18 21:04 Hydralazine HCl (Apresoline) 10 mg Q4H PRN IV bp > 160 syst when not agitate 08/17/18 16:49 09/16/18 16:48 08/18/18 19:34 Hydralazine HCl (Apresoline) 25 mg Q8HR ORAL 08/15/18 22:00 09/11/18 13:59 08/19/18 14:41 Lorazepam (Ativan 2mg/ml 1ml) 2 mg Q4H PRN IV Agitation 08/16/18 14:00 08/22/18 17:29 08/18/18 20:16 Metoprolol Tartrate (Lopressor) 2.5 mg QIDPRN IVP 08/18/18 15:12 09/17/18 15:11 Metoprolol Tartrate (Lopressor) 25 mg EVERY 8 HOURS ORAL 08/18/18 22:00 09/14/18 20:59 08/19/18 14:41 Morphine Sulfate (Morphine Sulfate) 4 mg Q4H PRN IVP For Pain 08/15/18 17:30 08/22/18 17:29 08/18/18 06:10 Ondansetron HCl (Zofran) 4 mg Q6H PRN IVP Nausea & Vomiting 08/15/18 17:00 09/11/18 16:59 Pantoprazole (Protonix) 40 mg EVERY 12 HOURS IVP 08/15/18 21:00 09/14/18 20:59 08/19/18 09:00 Piperacillin Sod/ Tazobactam Sod 2.25 gm/Dextrose 55 ml @ 110 mls/hr Q8H IVPB 08/15/18 18:00 08/23/18 17:59 08/19/18 17:44 Vancomycin HCl (Vanco rx to dose) 1 ea DAILY PRN MISC Per rx protocol 08/15/18 17:30 09/14/18 17:29 Donte Null M.D. Aug 19, 2018 17:50
--- NOTE | 2018-08-19 19:22 | Cardiology Progress Note ---
Assessment/Plan Assessment/Plan 1. Coagulopathy. 2. Pericardial effusion, increased in size since 2017. 3. Right atrial collapse, not changed since 2017. 4. Apical lateral increased echo, not changed since 2017. 5. Cough. 6. Mild segmental wall motion abnormality. 7. NSTEMI 8. ESRD on HD 9. Paroxysmal afib now in sinus as of last nite 10. cardiopulm arrest post bm self extubated eating some taking meds agitated at tiem bp increase with agitation increase bb increase hydralazine if bp remains elevated psot dialysis in am may consider more UF Subjective ROS Limited/Unobtainable: Yes Subjective self extubated 08/17 Objective Last 24 Hour Vital Signs Date Time Temp Pulse Resp B/P (MAP) Pulse Ox O2 Delivery O2 Flow Rate FiO2 08/19/18 19:01 Venturi Mask 14.0 55 08/19/18 19:00 95 Venturi Mask 14.0 55 08/19/18 18:00 55 08/19/18 18:00 86 25 150/70 (96) 96 08/19/18 17:00 97 22 172/83 (112) 97 08/19/18 16:00 96 08/19/18 16:00 93 22 172/83 (112) 97 08/19/18 16:00 Venturi Mask Bi-pap 08/19/18 15:00 83 23 153/47 (82) 97 08/19/18 14:41 83 151/62 08/19/18 14:41 151/62 08/19/18 14:00 83 23 151/62 (91) 97 08/19/18 13:00 86 24 142/41 (74) 97 08/19/18 12:00 Bi-pap Bi-pap 08/19/18 12:00 98.6 90 20 149/65 (93) 100 98.6 08/19/18 12:00 92 08/19/18 12:00 40 08/19/18 11:30 80 22 97 08/19/18 11:00 90 20 136/56 (82) 100 08/19/18 10:50 77 27 99 Facial 40 08/19/18 10:00 94 22 150/65 (93) 100 08/19/18 09:21 98 27 98 Facial 40 08/19/18 09:00 98 22 156/60 (92) 100 08/19/18 08:00 108 10/22/18 08:00 40 08/19/18 08:00 Bi-pap Bi-pap 08/19/18 08:00 98.5 80 22 155/66 (95) 100 98.5 08/19/18 07:00 81 22 158/64 (95) 100 08/19/18 06:45 88 32 97 Facial 40 08/19/18 06:45 97 Bi-pap 40 08/19/18 06:45 Bi-pap 40 08/19/18 06:00 86 27 147/69 (95) 98 08/19/18 05:41 96 161/69 08/19/18 05:41 161/69 08/19/18 05:17 97 23 97 Facial 40 08/19/18 05:00 102 24 170/71 (104) 97 08/19/18 04:00 40 08/19/18 04:00 Bi-pap Bi-pap 08/19/18 04:00 97.5 98 20 165/71 (102) 97 97.5 08/19/18 03:37 105 08/19/18 03:10 94 24 96 Facial 40 08/19/18 03:00 95 22 162/69 (100) 96 08/19/18 02:00 91 21 149/54 (85) 96 08/19/18 01:00 90 20 129/50 (76) 97 08/19/18 00:57 101 22 97 Facial 40 08/19/18 00:00 Bi-pap Bi-pap 08/19/18 00:00 40 08/19/18 00:00 98.0 94 20 147/78 (101) 97 98.0 08/18/18 23:32 90 08/18/18 23:03 106 18 97 Facial 40 08/18/18 23:00 96 20 148/60 (89) 96 08/18/18 22:00 97 16 143/69 (93) 96 08/18/18 22:00 90 138/52 08/18/18 22:00 138/52 08/18/18 21:00 40 08/18/18 21:00 100 19 141/46 (77) 98 08/18/18 20:55 101 18 99 Facial 40 08/18/18 20:00 108 08/18/18 20:00 97.7 108 20 164/64 (97) 99 97.7 08/18/18 20:00 Bi-pap Bi-pap 08/18/18 20:00 50 08/18/18 19:34 164/74 08/18/18 19:25 115 20 100 Facial 50 08/18/18 19:25 100 Bi-pap 50 08/18/18 19:25 Bi-pap 60 General Appearance: agitated, other - on fm Neck: supple Cardiovascular: irregularly irregular Respiratory/Chest: crackles/rales Abdomen: normal bowel sounds, non tender, soft Extremities: no swelling Intake and Output 08/18/18 08/19/18 19:00 07:00 Intake Total 55 ml 329 ml Output Total 2000 ml 1 ml Balance -1945 ml 328 ml Intake Oral 100 ml IV Total 55 ml 99 ml Other 130 ml Output Urine Total 0 ml 1 ml Hemodialysis UF 2000 ml # Bowel Movements 3 Laboratory Tests Test 08/19/18 04:35 08/19/18 08:00 White Blood Count 15.8 K/UL (4.8-10.8) H Red Blood Count 3.33 M/UL (4.70-6.10) L Hemoglobin 11.0 G/DL (14.2-18.0) L Hematocrit 32.2 % (42.0-52.0) L Mean Corpuscular Volume 97 FL (80-99) Mean Corpuscular Hemoglobin 33.0 PG (27.0-31.0) H Mean Corpuscular Hemoglobin Concent 34.1 G/DL (32.0-36.0) Red Cell Distribution Width 17.5 % (11.6-14.8) H Platelet Count 178 K/UL (150-450) Mean Platelet Volume 7.9 FL (6.5-10.1) Neutrophils (%) (Auto) 84.2 % (45.0-75.0) H Lymphocytes (%) (Auto) 3.8 % (20.0-45.0) L Monocytes (%) (Auto) 9.6 % (1.0-10.0) Eosinophils (%) (Auto) 2.0 % (0.0-3.0) Basophils (%) (Auto) 0.4 % (0.0-2.0) Sodium Level 143 MMOL/L (136-145) Potassium Level 3.4 MMOL/L (3.5-5.1) L Chloride Level 101 MMOL/L (98-107) Carbon Dioxide Level 27 MMOL/L (21-32) Anion Gap 15 mmol/L (5-15) Blood Urea Nitrogen 53 mg/dL (7-18) H Creatinine 6.3 MG/DL (0.55-1.30) H Estimat Glomerular Filtration Rate mL/min (>60) Glucose Level 105 MG/DL (74-106) Uric Acid 6.1 MG/DL (2.6-7.2) Calcium Level 9.0 MG/DL (8.5-10.1) Phosphorus Level 6.0 MG/DL (2.5-4.9) H Magnesium Level 2.0 MG/DL (1.8-2.4) Total Bilirubin 1.5 MG/DL (0.2-1.0) H Direct Bilirubin 0.6 MG/DL (0.0-0.3) H Aspartate Amino Transf (AST/SGOT) 43 U/L (15-37) H Alanine Aminotransferase (ALT/SGPT) 96 U/L (12-78) H Alkaline Phosphatase 129 U/L (46-116) H Troponin I 0.626 ng/mL (0.000-0.056) Pro-B-Type Natriuretic Peptide > 16463 pg/mL (0-125) H Total Protein 6.5 G/DL (6.4-8.2) Albumin 2.4 G/DL (3.4-5.0) L Globulin 4.1 g/dL Albumin/Globulin Ratio 0.6 (1.0-2.7) L Thyroid Stimulating Hormone (TSH) 0.645 uiU/mL (0.358-3.740) Random Vancomycin Level 16.8 ug/mL Arterial Blood pH 7.420 (7.350-7.450) Arterial Blood Partial Pressure CO2 40.8 mmHg (35.0-45.0) Arterial Blood Partial Pressure O2 83.1 mmHg (75.0-100.0) Arterial Blood HCO3 26.2 mmol/L (22.0-26.0) H Arterial Blood Oxygen Saturation 95.8 % (95-100) Arterial Blood Base Excess 1.7 (-2-2) Ugo Test Positive Marko Thakkar MD Aug 19, 2018 19:22
[2018-08-19] MEDS: Dyna-Hex 2% Top Sol 2oz TOPIC SCH (19:36)
[2018-08-19] MEDS: Epogen (for ESRD on dialysis) SUBQ SCH (20:33)
[2018-08-19] MEDS: LORazepam Inj 2mg/ml 1ml IV PRN (20:34)
[2018-08-20] VITALS (18 sets, daily range): BP systolic 112–164; BP diastolic 52–70
[2018-08-20] MEDS: Piperacillin/Tazobactam 2.25 GM in D5W 55 ML IVPB SCH ×2 (01:40→09:46)
[2018-08-20 05:28] LABS: BASOPHILS % (AUTO) 0.5 % (0.0-2.0); EOSINOPHILS % (AUTO) 1.8 % (0.0-3.0); HEMATOCRIT 30.3 % (42.0-52.0); HEMOGLOBIN 10.2 G/DL (14.2-18.0); LYMPHOCYTES % (AUTO) 5.6 % (20.0-45.0); MEAN CORPUSCULAR VOLUME 96 FL (80-99); MONOCYTES % (AUTO) 11.2 % (1.0-10.0); PLATELET COUNT 167 K/UL (150-450); RED BLOOD COUNT 3.14 M/UL (4.70-6.10); RED CELL DISTRIBUTION WIDTH 17.8 % (11.6-14.8); WHITE BLOOD COUNT 11.5 K/UL (4.8-10.8)
[2018-08-20] MEDS: HydrALAZINE 25mg tab ORAL SCH ×3 (05:35→23:32)
[2018-08-20 05:44] LABS: PHOSPHORUS 6.4 MG/DL (2.5-4.9)
[2018-08-20 05:47] LABS: ALANINE AMINOTRANSFERASE 67 U/L (12-78); ALBUMIN 2.2 G/DL (3.4-5.0); ALBUMIN/GLOBULIN RATIO 0.5 (1.0-2.7); ALKALINE PHOSPHATASE 112 U/L (46-116); ANION GAP 17 mmol/L (5-15); ASPARTATE AMINO TRANSFERASE 28 U/L (15-37); BILIRUBIN,TOTAL 1.2 MG/DL (0.2-1.0); BLOOD UREA NITROGEN 69 mg/dL (7-18); CALCIUM 8.8 MG/DL (8.5-10.1); CARBON DIOXIDE 27 MMOL/L (21-32); CHLORIDE 99 MMOL/L (98-107); CREATININE 7.4 MG/DL (0.55-1.30); POTASSIUM 3.5 MMOL/L (3.5-5.1); SODIUM 143 MMOL/L (136-145)
[2018-08-20 06:12] LABS: BILIRUBIN,DIRECT 0.5 MG/DL (0.0-0.3)
[2018-08-20] MEDS ORDERED: Metoprolol Tartrate 50mg tab ORAL SCH ×2 (09:00→21:00)
[2018-08-20] MEDS: Pantoprazole Inj IVP SCH ×2 (09:42→21:00)
[2018-08-20] MEDS: Docusate 100mg cap ORAL SCH ×3 (09:42→17:51)
--- NOTE | 2018-08-20 09:42 | Pulmonolgy Critical Care Note ---
Critical Care - Asmt/Plan Problems: (1) Acute respiratory failure (2) Cardiac arrest (3) Interstitial lung disease (4) Anemia (5) COPD (chronic obstructive pulmonary disease) (6) ESRD (end stage renal disease) on dialysis Respiratory: monitor respiratory rate, adjust FIO2, CXR Cardiac: continue to monitor HR/BP Renal: F/U I&O Infectious Disease: check cultures Gastrointestinal: continue feedings/current rate Endocrine: monitor blood sugar Hematologic: monitor H/H, transfuse if hgb<8.5 Neurologic: PRN Morphine, keep patient comfortable Prophylaxis: Protonix, Heparin Notes Reviewed: cardio Discussed with: nurses, consultants, case management specialistdental practice manager - Objective Last 24 Hour Vital Signs Date Time Temp Pulse Resp B/P (MAP) Pulse Ox O2 Delivery O2 Flow Rate FiO2 08/20/18 07:50 Venturi Mask 14.0 55 08/20/18 07:50 100 Venturi Mask 14.0 55 08/20/18 07:03 Simple Mask 15.0 08/20/18 07:00 83 23 161/59 (93) 98 08/20/18 06:00 89 24 154/54 (87) 98 08/20/18 05:35 155/60 08/20/18 05:00 87 22 155/60 (91) 97 08/20/18 04:00 97.8 88 21 164/58 (93) 100 97.8 08/20/18 04:00 Venturi Mask Venturi Mask 08/20/18 04:00 55 08/20/18 03:07 89 08/20/18 03:00 89 23 151/64 (93) 100 08/20/18 02:00 88 22 151/63 (92) 100 08/20/18 01:00 92 24 132/63 (86) 97 08/20/18 00:00 Venturi Mask Venturi Mask 08/20/18 00:00 55 08/20/18 00:00 99.0 87 26 148/54 (85) 100 99.0 08/19/18 23:37 177/81 08/19/18 23:06 101 08/19/18 23:00 95 27 177/81 (113) 94 08/19/18 22:00 90 26 139/72 (94) 98 08/19/18 21:42 152/62 08/19/18 21:00 89 25 137/63 (87) 98 08/19/18 20:00 97.5 91 26 172/75 (107) 97 97.5 08/19/18 20:00 55 08/19/18 20:00 Venturi Mask Venturi Mask 08/19/18 19:17 93 08/19/18 19:01 Venturi Mask 14.0 55 08/19/18 19:00 99 31 186/86 (119) 95 08/19/18 19:00 95 Venturi Mask 14.0 55 08/19/18 18:00 55 08/19/18 18:00 86 25 150/70 (96) 96 08/19/18 17:00 97 22 172/83 (112) 97 08/19/18 16:00 96 08/19/18 16:00 93 22 172/83 (112) 97 08/19/18 16:00 Venturi Mask Bi-pap 08/19/18 15:00 83 23 153/47 (82) 97 08/19/18 14:41 83 151/62 08/19/18 14:41 151/62 08/19/18 14:00 83 23 151/62 (91) 97 08/19/18 13:00 86 24 142/41 (74) 97 08/19/18 12:00 Bi-pap Bi-pap 08/19/18 12:00 98.6 90 20 149/65 (93) 100 98.6 08/19/18 12:00 92 08/19/18 12:00 40 08/19/18 11:30 80 22 97 08/19/18 11:00 90 20 136/56 (82) 100 08/19/18 10:50 77 27 99 Facial 40 08/19/18 10:00 94 22 150/65 (93) 100 Status: awake Condition: critical HEENT: atraumatic Lungs: clear, chest wall tender Heart: HR/BP stable Abdomen: non-tender, feeding tube Extremities: edema Decubiti: location Critical Care - Subjective ROS Limited/Unobtainable: Yes Condition: critical EKG Rhythm: Sinus Rhythm FI02: 55 Sputum Amount: None PEEP: 0.0 Tube Feeding Amount: 40 I&O: Intake and Output 08/19/18 08/20/18 19:00 07:00 Intake Total 675 ml 185 ml Output Total 0 ml 120 ml Balance 675 ml 65 ml Intake Oral 460 ml 50 ml IV Total 165 ml 55 ml Other 50 ml 80 ml Output Urine Total 0 ml 120 ml # Voids 1 1 # Bowel Movements 1 CXR: less pulmonary edema ET-Tube: 7.0 ET Position: 22 Labs: Laboratory Tests Test 08/20/18 04:40 White Blood Count 11.5 K/UL (4.8-10.8) H Red Blood Count 3.14 M/UL (4.70-6.10) L Hemoglobin 10.2 G/DL (14.2-18.0) L Hematocrit 30.3 % (42.0-52.0) L Mean Corpuscular Volume 96 FL (80-99) Mean Corpuscular Hemoglobin 32.5 PG (27.0-31.0) H Mean Corpuscular Hemoglobin Concent 33.7 G/DL (32.0-36.0) Red Cell Distribution Width 17.8 % (11.6-14.8) H Platelet Count 167 K/UL (150-450) Mean Platelet Volume 6.6 FL (6.5-10.1) Neutrophils (%) (Auto) 81.0 % (45.0-75.0) H Lymphocytes (%) (Auto) 5.6 % (20.0-45.0) L Monocytes (%) (Auto) 11.2 % (1.0-10.0) H Eosinophils (%) (Auto) 1.8 % (0.0-3.0) Basophils (%) (Auto) 0.5 % (0.0-2.0) Sodium Level 143 MMOL/L (136-145) Potassium Level 3.5 MMOL/L (3.5-5.1) Chloride Level 99 MMOL/L (98-107) Carbon Dioxide Level 27 MMOL/L (21-32) Anion Gap 17 mmol/L (5-15) H Blood Urea Nitrogen 69 mg/dL (7-18) H Creatinine 7.4 MG/DL (0.55-1.30) H Estimat Glomerular Filtration Rate mL/min (>60) Glucose Level 109 MG/DL (74-106) H Calcium Level 8.8 MG/DL (8.5-10.1) Phosphorus Level 6.4 MG/DL (2.5-4.9) H Magnesium Level 2.2 MG/DL (1.8-2.4) Total Bilirubin 1.2 MG/DL (0.2-1.0) H Direct Bilirubin 0.5 MG/DL (0.0-0.3) H Aspartate Amino Transf (AST/SGOT) 28 U/L (15-37) Alanine Aminotransferase (ALT/SGPT) 67 U/L (12-78) Alkaline Phosphatase 112 U/L (46-116) Troponin I 0.412 ng/mL (0.000-0.056) C-Reactive Protein, Quantitative 27.3 mg/dL (0.00-0.90) H Total Protein 6.3 G/DL (6.4-8.2) L Albumin 2.2 G/DL (3.4-5.0) L Globulin 4.1 g/dL Albumin/Globulin Ratio 0.5 (1.0-2.7) L Darius Watson MD Aug 20, 2018 09:42
--- NOTE | 2018-08-20 11:09 | Diagnostic Imaging Report ---
Indication: Dyspnea Comparison: 08/19/2018 A single view chest radiograph was obtained. Findings: Pulmonary edema again demonstrated without change. Cardiomegaly is noted. Central line is stable. IMPRESSION: No cell changer one day
[2018-08-20] MEDS ORDERED: Tubing Blood Filter IV ONE (15:10)
--- NOTE | 2018-08-20 15:37 | General Progress Note ---
Assessment/Plan Problem List: (1) Respiratory arrest ICD Codes: R09.2 - Respiratory arrest SNOMED: 00084223 (2) Aspiration pneumonia ICD Codes: J69.0 - Pneumonitis due to inhalation of food and vomit SNOMED: 562254541 (3) Hemoptysis ICD Codes: R04.2 - Hemoptysis SNOMED: 06173112 (4) ESRD (end stage renal disease) on dialysis ICD Codes: N18.6 - End stage renal failure on dialysis; Z99.2 - Dependence on renal dialysis SNOMED: 481343343 (5) Hypertension ICD Codes: I10 - Hypertension SNOMED: 05017952 (6) Cardiac ischemia ICD Codes: I25.9 - Chronic ischemic heart disease, unspecified SNOMED: 408419419 Status Narrative troponin lowering - [facility] HD Assessment/Plan self extubated 08/17 pulm support diacussed with 2 daughters at bed side 08/19 transfuse 2 units- 08/16 HD 08/16 again 08/18 and 08/20 minimal Sedation as needed discussed with RN K supplement as needed to tele Subjective ROS Limited/Unobtainable: No Constitutional: Reports: malaise Allergies: Coded Allergies: BANANA (Verified Allergy, Severe, 08/12/18) GIL (Verified Allergy, Severe, 08/12/18) CARROT (Verified Allergy, Severe, 08/12/18) Dairy (Verified Allergy, Severe, 08/12/18) GRAPE (Verified Allergy, Severe, 08/12/18) Pork (Verified Allergy, Severe, 08/12/18) Potato (Verified Allergy, Severe, 08/12/18) Objective Last 24 Hour Vital Signs Date Time Temp Pulse Resp B/P (MAP) Pulse Ox O2 Delivery O2 Flow Rate FiO2 08/20/18 15:00 91 22 143/60 (87) 98 08/20/18 14:00 87 22 129/62 (84) 98 08/20/18 14:00 143/60 08/20/18 13:00 85 22 136/55 (82) 98 08/20/18 12:00 90 08/20/18 12:00 97.5 85 21 112/60 (77) 100 97.5 08/20/18 12:00 Venturi Mask Venturi Mask 08/20/18 12:00 55 08/20/18 11:00 87 22 130/55 (80) 98 08/20/18 10:00 87 23 145/52 (83) 98 08/20/18 09:42 83 161/59 08/20/18 09:00 83 22 149/59 (89) 98 08/20/18 08:00 98.0 85 21 151/62 (91) 100 98.0 08/20/18 08:00 55 08/20/18 08:00 Venturi Mask Venturi Mask 08/20/18 08:00 92 08/20/18 07:50 Venturi Mask 14.0 55 08/20/18 07:50 100 Venturi Mask 14.0 55 08/20/18 07:03 Simple Mask 15.0 08/20/18 07:00 83 23 161/59 (93) 98 08/20/18 06:00 89 24 154/54 (87) 98 08/20/18 05:35 155/60 08/20/18 05:00 87 22 155/60 (91) 97 08/20/18 04:00 97.8 88 21 164/58 (93) 100 97.8 08/20/18 04:00 Venturi Mask Venturi Mask 08/20/18 04:00 55 08/20/18 03:07 89 08/20/18 03:00 89 23 151/64 (93) 100 08/20/18 02:00 88 22 151/63 (92) 100 08/20/18 01:00 92 24 132/63 (86) 97 08/20/18 00:00 Venturi Mask Venturi Mask 08/20/18 00:00 55 08/20/18 00:00 99.0 87 26 148/54 (85) 100 99.0 08/19/18 23:37 177/81 08/19/18 23:06 101 08/19/18 23:00 95 27 177/81 (113) 94 08/19/18 22:00 90 26 139/72 (94) 98 08/19/18 21:42 152/62 08/19/18 21:00 89 25 137/63 (87) 98 08/19/18 20:00 97.5 91 26 172/75 (107) 97 97.5 08/19/18 20:00 55 08/19/18 20:00 Venturi Mask Venturi Mask 08/19/18 19:17 93 10/22/18 19:01 Venturi Mask 14.0 55 08/19/18 19:00 99 31 186/86 (119) 95 08/19/18 19:00 95 Venturi Mask 14.0 55 08/19/18 18:00 55 08/19/18 18:00 86 25 150/70 (96) 96 08/19/18 17:00 97 22 172/83 (112) 97 08/19/18 16:00 96 08/19/18 16:00 93 22 172/83 (112) 97 08/19/18 16:00 Venturi Mask Bi-pap Intake and Output 08/19/18 08/20/18 19:00 07:00 Intake Total 675 ml 185 ml Output Total 0 ml 120 ml Balance 675 ml 65 ml Intake Oral 460 ml 50 ml IV Total 165 ml 55 ml Other 50 ml 80 ml Output Urine Total 0 ml 120 ml # Voids 1 1 # Bowel Movements 1 Laboratory Tests 08/20/18 04:40: White Blood Count 11.5H, Red Blood Count 3.14L, Hemoglobin 10.2L, Hematocrit 30.3L, Mean Corpuscular Volume 96, Mean Corpuscular Hemoglobin 32.5H, Mean Corpuscular Hemoglobin Concent 33.7, Red Cell Distribution Width 17.8H, Platelet Count 167, Mean Platelet Volume 6.6, Neutrophils (%) (Auto) 81.0H, Lymphocytes (%) (Auto) 5.6L, Monocytes (%) (Auto) 11.2H, Eosinophils (%) (Auto) 1.8, Basophils (%) (Auto) 0.5, Sodium Level 143, Potassium Level 3.5, Chloride Level 99, Carbon Dioxide Level 27, Anion Gap 17H, Blood Urea Nitrogen 69H, Creatinine 7.4H, Estimat Glomerular Filtration Rate , Glucose Level 109H, Calcium Level 8.8, Phosphorus Level 6.4H, Magnesium Level 2.2, Total Bilirubin 1.2H, Direct Bilirubin 0.5H, Aspartate Amino Transf (AST/SGOT) 28, Alanine Aminotransferase (ALT/SGPT) 67, Alkaline Phosphatase 112, Troponin I 0.412H, C- Reactive Protein, Quantitative 27.3H, Total Protein 6.3L, Albumin 2.2L, Globulin 4.1, Albumin/Globulin Ratio 0.5L Height (Feet): 5 Height (Inches): 8.00 Weight (Pounds): 126 General Appearance: no apparent distress, lethargic Cardiovascular: tachycardia - mild Respiratory/Chest: decreased breath sounds Abdomen: soft Objective on bipapa post self extubation Ady Gómez MD Aug 20, 2018 15:37
[2018-08-20] MEDS ORDERED: Morphine Sulfate 4mg/ml Inj (IV/IM USE ONLY) IVP PRN (16:04)
[2018-08-20] MEDS ORDERED: LORazepam Inj 2mg/ml 1ml IV PRN (16:04)
[2018-08-20] MEDS ORDERED: Albuterol/Ipratropium 3ml neb HHN PRN (16:04)
--- NOTE | 2018-08-20 17:24 | Cardiology Progress Note ---
Assessment/Plan Assessment/Plan 1. Coagulopathy. 2. Pericardial effusion, increased in size since 2017. 3. Right atrial collapse, not changed since 2017. 4. Apical lateral increased echo, not changed since 2017. 5. Cough. 6. Mild segmental wall motion abnormality. 7. NSTEMI 8. ESRD on HD 9. Paroxysmal afib now in sinus as of last nite 10. cardiopulm arrest post bm self extubated 08/17 transferred to tele unit bp is fien had dialysis only 2 liter uf tele neg trop continues to trend down family declined cath last week hemodynamically seems stable at the moment Subjective Cardiovascular: Denies: chest pain, lightheadedness Respiratory: Denies: shortness of breath Subjective feels anxious self extubated 08/17 Objective Last 24 Hour Vital Signs Date Time Temp Pulse Resp B/P (MAP) Pulse Ox O2 Delivery O2 Flow Rate FiO2 08/20/18 16:00 55 08/20/18 16:00 97.5 89 22 129/65 (86) 99 97.5 08/20/18 15:00 91 22 143/60 (87) 98 08/20/18 14:00 87 22 129/62 (84) 98 08/20/18 14:00 143/60 08/20/18 13:00 85 22 136/55 (82) 98 08/20/18 12:00 90 08/20/18 12:00 97.5 85 21 112/60 (77) 100 97.5 08/20/18 12:00 Venturi Mask Venturi Mask 08/20/18 12:00 55 08/20/18 11:00 87 22 130/55 (80) 98 08/20/18 10:00 87 23 145/52 (83) 98 08/20/18 09:42 83 161/59 08/20/18 09:00 83 22 149/59 (89) 98 08/20/18 08:00 98.0 85 21 151/62 (91) 100 98.0 08/20/18 08:00 55 08/20/18 08:00 Venturi Mask Venturi Mask 08/20/18 08:00 92 08/20/18 07:50 Venturi Mask 14.0 55 08/20/18 07:50 100 Venturi Mask 14.0 55 08/20/18 07:03 Simple Mask 15.0 08/20/18 07:00 83 23 161/59 (93) 98 08/20/18 06:00 89 24 154/54 (87) 98 08/20/18 05:35 155/60 08/20/18 05:00 87 22 155/60 (91) 97 08/20/18 04:00 97.8 88 21 164/58 (93) 100 97.8 08/20/18 04:00 Venturi Mask Venturi Mask 08/20/18 04:00 55 08/20/18 03:07 89 08/20/18 03:00 89 23 151/64 (93) 100 08/20/18 02:00 88 22 151/63 (92) 100 08/20/18 01:00 92 24 132/63 (86) 97 08/20/18 00:00 Venturi Mask Venturi Mask 08/20/18 00:00 55 08/20/18 00:00 99.0 87 26 148/54 (85) 100 99.0 08/19/18 23:37 177/81 08/19/18 23:06 101 08/19/18 23:00 95 27 177/81 (113) 94 08/19/18 22:00 90 26 139/72 (94) 98 08/19/18 21:42 152/62 08/19/18 21:00 89 25 137/63 (87) 98 08/19/18 20:00 97.5 91 26 172/75 (107) 97 97.5 08/19/18 20:00 55 08/19/18 20:00 Venturi Mask Venturi Mask 08/19/18 19:17 93 08/19/18 19:01 Venturi Mask 14.0 55 08/19/18 19:00 99 31 186/86 (119) 95 08/19/18 19:00 95 Venturi Mask 14.0 55 08/19/18 18:00 55 08/19/18 18:00 86 25 150/70 (96) 96 General Appearance: no apparent distress, alert Neck: supple Cardiovascular: normal rate Respiratory/Chest: decreased breath sounds - left base clear on eliazar right Abdomen: normal bowel sounds, non tender, soft Extremities: no swelling Intake and Output 08/19/18 08/20/18 19:00 07:00 Intake Total 675 ml 185 ml Output Total 0 ml 120 ml Balance 675 ml 65 ml Intake Oral 460 ml 50 ml IV Total 165 ml 55 ml Other 50 ml 80 ml Output Urine Total 0 ml 120 ml # Voids 1 1 # Bowel Movements 1 Laboratory Tests Test 08/20/18 04:40 White Blood Count 11.5 K/UL (4.8-10.8) H Red Blood Count 3.14 M/UL (4.70-6.10) L Hemoglobin 10.2 G/DL (14.2-18.0) L Hematocrit 30.3 % (42.0-52.0) L Mean Corpuscular Volume 96 FL (80-99) Mean Corpuscular Hemoglobin 32.5 PG (27.0-31.0) H Mean Corpuscular Hemoglobin Concent 33.7 G/DL (32.0-36.0) Red Cell Distribution Width 17.8 % (11.6-14.8) H Platelet Count 167 K/UL (150-450) Mean Platelet Volume 6.6 FL (6.5-10.1) Neutrophils (%) (Auto) 81.0 % (45.0-75.0) H Lymphocytes (%) (Auto) 5.6 % (20.0-45.0) L Monocytes (%) (Auto) 11.2 % (1.0-10.0) H Eosinophils (%) (Auto) 1.8 % (0.0-3.0) Basophils (%) (Auto) 0.5 % (0.0-2.0) Sodium Level 143 MMOL/L (136-145) Potassium Level 3.5 MMOL/L (3.5-5.1) Chloride Level 99 MMOL/L (98-107) Carbon Dioxide Level 27 MMOL/L (21-32) Anion Gap 17 mmol/L (5-15) H Blood Urea Nitrogen 69 mg/dL (7-18) H Creatinine 7.4 MG/DL (0.55-1.30) H Estimat Glomerular Filtration Rate mL/min (>60) Glucose Level 109 MG/DL (74-106) H Calcium Level 8.8 MG/DL (8.5-10.1) Phosphorus Level 6.4 MG/DL (2.5-4.9) H Magnesium Level 2.2 MG/DL (1.8-2.4) Total Bilirubin 1.2 MG/DL (0.2-1.0) H Direct Bilirubin 0.5 MG/DL (0.0-0.3) H Aspartate Amino Transf (AST/SGOT) 28 U/L (15-37) Alanine Aminotransferase (ALT/SGPT) 67 U/L (12-78) Alkaline Phosphatase 112 U/L (46-116) Troponin I 0.412 ng/mL (0.000-0.056) C-Reactive Protein, Quantitative 27.3 mg/dL (0.00-0.90) H Total Protein 6.3 G/DL (6.4-8.2) L Albumin 2.2 G/DL (3.4-5.0) L Globulin 4.1 g/dL Albumin/Globulin Ratio 0.5 (1.0-2.7) L Marko Thakkar MD Aug 20, 2018 17:24
--- NOTE | 2018-08-20 17:32 | Infectious Diseases Prog Note ---
Assessment/Plan Problems: (1) HCAP (healthcare-associated pneumonia) Assessment & Plan: S/P code , extubated , on high flow oxygen , continue zosyn and vancomycin empirically for 10 days total , repeated sputum culture showed normal respiratory [place] , aspiration precaution and keep HOB > 30 degree . EOT 08/22/18 (2) Acute respiratory failure Assessment & Plan: due to the above, S/P code , extubated on high flow oxygen via mask , continue inhalers , monitor CXR , pulmonary is following (3) Coagulopathy Assessment & Plan: resolved , off anticoagulation , monitor INR, cardiology is following (4) Hemoptysis Assessment & Plan: due to the above , improving , monitor H/H , transfuse blood as needed, monitor CXR . (5) ESRD (end stage renal disease) on dialysis Assessment & Plan: on HD , renal is following (6) Cardiac ischemia Assessment & Plan: with elevated troponin , now off anticoagulation, cardiology is following Subjective Constitutional: Reports: no symptoms HEENT: Reports: no symptoms Respiratory: Reports: no symptoms Breasts: Reports: no symptoms Cardiovascular: Reports: no symptoms Gastrointestinal/Abdominal: Reports: no symptoms Genitourinary: Reports: no symptoms Neurologic: Reports: no symptoms Psychiatric: Reports: no symptoms Skin: Reports: no symptoms Endocrine: Reports: no symptoms Hematologic: Reports: no symptoms Allergies: Coded Allergies: BANANA (Verified Allergy, Severe, 08/12/18) GIL (Verified Allergy, Severe, 08/12/18) CARROT (Verified Allergy, Severe, 08/12/18) Dairy (Verified Allergy, Severe, 08/12/18) GRAPE (Verified Allergy, Severe, 08/12/18) Pork (Verified Allergy, Severe, 08/12/18) Potato (Verified Allergy, Severe, 08/12/18) Subjective he was extubated and started on BIPAP , comfortable in ICU , follows commands, NAD Objective Vital Signs Last 24 Hour Vital Signs Date Time Temp Pulse Resp B/P (MAP) Pulse Ox O2 Delivery O2 Flow Rate FiO2 08/20/18 16:00 55 08/20/18 16:00 97.5 89 22 129/65 (86) 99 97.5 08/20/18 15:00 91 22 143/60 (87) 98 08/20/18 14:00 87 22 129/62 (84) 98 08/20/18 14:00 143/60 08/20/18 13:00 85 22 136/55 (82) 98 08/20/18 12:00 90 08/20/18 12:00 97.5 85 21 112/60 (77) 100 97.5 08/20/18 12:00 Venturi Mask Venturi Mask 08/20/18 12:00 55 08/20/18 11:00 87 22 130/55 (80) 98 08/20/18 10:00 87 23 145/52 (83) 98 08/20/18 09:42 83 161/59 08/20/18 09:00 83 22 149/59 (89) 98 08/20/18 08:00 98.0 85 21 151/62 (91) 100 98.0 08/20/18 08:00 55 08/20/18 08:00 Venturi Mask Venturi Mask 08/20/18 08:00 92 08/20/18 07:50 Venturi Mask 14.0 55 08/20/18 07:50 100 Venturi Mask 14.0 55 08/20/18 07:03 Simple Mask 15.0 08/20/18 07:00 83 23 161/59 (93) 98 08/20/18 06:00 89 24 154/54 (87) 98 08/20/18 05:35 155/60 08/20/18 05:00 87 22 155/60 (91) 97 08/20/18 04:00 97.8 88 21 164/58 (93) 100 97.8 08/20/18 04:00 Venturi Mask Venturi Mask 08/20/18 04:00 55 08/20/18 03:07 89 08/20/18 03:00 89 23 151/64 (93) 100 08/20/18 02:00 88 22 151/63 (92) 100 08/20/18 01:00 92 24 132/63 (86) 97 08/20/18 00:00 Venturi Mask Venturi Mask 08/20/18 00:00 55 08/20/18 00:00 99.0 87 26 148/54 (85) 100 99.0 08/19/18 23:37 177/81 08/19/18 23:06 101 08/19/18 23:00 95 27 177/81 (113) 94 08/19/18 22:00 90 26 139/72 (94) 98 08/19/18 21:42 152/62 08/19/18 21:00 89 25 137/63 (87) 98 08/19/18 20:00 97.5 91 26 172/75 (107) 97 97.5 08/19/18 20:00 55 08/19/18 20:00 Venturi Mask Venturi Mask 08/19/18 19:17 93 08/19/18 19:01 Venturi Mask 14.0 55 08/19/18 19:00 99 31 186/86 (119) 95 08/19/18 19:00 95 Venturi Mask 14.0 55 08/19/18 18:00 55 08/19/18 18:00 86 25 150/70 (96) 96 Height (Feet): 5 Height (Inches): 8.00 Weight (Pounds): 126 General Appearance: WD/WN, no acute distress, cachetic HEENT: normocephalic, atraumatic, anicteric, mucous membranes moist, PERRL Respiratory/Chest: chest wall non-tender, normal breath sounds, no respiratory distress, no accessory muscle use, decreased breath sounds, crackles/rales Cardiovascular: normal peripheral pulses, normal rate, regular rhythm, no gallop/murmur, no JVD Abdomen: normal bowel sounds, soft, non tender, no organomegaly, non distended , no mass, no scars Genitourinary: normal external genitalia Extremities: no cyanosis, no clubbing Skin: no rash, no lesions, no ulcers Neurologic/Psychiatric: alert, responsive Lymphatic: no neck adenopathy, no groin adenopathy Musculoskeletal: normal muscle bulk, no effusion Laboratory Tests Test 08/20/18 04:40 White Blood Count 11.5 K/UL (4.8-10.8) H Red Blood Count 3.14 M/UL (4.70-6.10) L Hemoglobin 10.2 G/DL (14.2-18.0) L Hematocrit 30.3 % (42.0-52.0) L Mean Corpuscular Volume 96 FL (80-99) Mean Corpuscular Hemoglobin 32.5 PG (27.0-31.0) H Mean Corpuscular Hemoglobin Concent 33.7 G/DL (32.0-36.0) Red Cell Distribution Width 17.8 % (11.6-14.8) H Platelet Count 167 K/UL (150-450) Mean Platelet Volume 6.6 FL (6.5-10.1) Neutrophils (%) (Auto) 81.0 % (45.0-75.0) H Lymphocytes (%) (Auto) 5.6 % (20.0-45.0) L Monocytes (%) (Auto) 11.2 % (1.0-10.0) H Eosinophils (%) (Auto) 1.8 % (0.0-3.0) Basophils (%) (Auto) 0.5 % (0.0-2.0) Sodium Level 143 MMOL/L (136-145) Potassium Level 3.5 MMOL/L (3.5-5.1) Chloride Level 99 MMOL/L (98-107) Carbon Dioxide Level 27 MMOL/L (21-32) Anion Gap 17 mmol/L (5-15) H Blood Urea Nitrogen 69 mg/dL (7-18) H Creatinine 7.4 MG/DL (0.55-1.30) H Estimat Glomerular Filtration Rate mL/min (>60) Glucose Level 109 MG/DL (74-106) H Calcium Level 8.8 MG/DL (8.5-10.1) Phosphorus Level 6.4 MG/DL (2.5-4.9) H Magnesium Level 2.2 MG/DL (1.8-2.4) Total Bilirubin 1.2 MG/DL (0.2-1.0) H Direct Bilirubin 0.5 MG/DL (0.0-0.3) H Aspartate Amino Transf (AST/SGOT) 28 U/L (15-37) Alanine Aminotransferase (ALT/SGPT) 67 U/L (12-78) Alkaline Phosphatase 112 U/L (46-116) Troponin I 0.412 ng/mL (0.000-0.056) C-Reactive Protein, Quantitative 27.3 mg/dL (0.00-0.90) H Total Protein 6.3 G/DL (6.4-8.2) L Albumin 2.2 G/DL (3.4-5.0) L Globulin 4.1 g/dL Albumin/Globulin Ratio 0.5 (1.0-2.7) L Current Medications Medications (Trade) Dose Ordered Sig/Kris Route PRN Reason Start Time Stop Time Status Last Admin Dose Admin Acetaminophen (Tylenol) 650 mg Q4H PRN ORAL pain and Temp of 100 F 08/20/18 16:04 09/11/18 16:03 Albuterol/ Ipratropium (Albuterol/ Ipratropium) 3 ml Q4H PRN HHN sob 08/20/18 16:04 08/22/18 16:03 Chlorhexidine Gluconate (Anni-Hex 2%) 1 applic DAILY@1999 TOPIC 08/20/18 20:00 09/17/18 19:59 Docusate Sodium (Colace) 100 mg THREE TIMES A DAY ORAL 08/20/18 18:00 09/11/18 12:59 Epoetin Issa (Procrit (for ESRD on dialysis)) 10,000 units SUN-SUN-SUN SUBQ 08/21/18 21:00 09/11/18 20:59 Hydralazine HCl (Apresoline) 10 mg Q4H PRN IV bp > 160 syst when not agitate 08/20/18 16:16 09/16/18 16:15 Hydralazine HCl (Apresoline) 25 mg Q8HR ORAL 08/20/18 22:00 09/11/18 13:59 Lorazepam (Ativan 2mg/ml 1ml) 2 mg Q4H PRN IV Agitation 08/20/18 16:04 08/22/18 16:03 Metoprolol Tartrate (Lopressor) 2.5 mg QIDPRN PRN IVP HR > 100 and SBP > 100 08/21/18 16:17 09/17/18 16:16 Metoprolol Tartrate (Lopressor) 50 mg Q12HR ORAL 08/20/18 21:00 09/19/18 08:59 Morphine Sulfate (Morphine Sulfate) 4 mg Q4H PRN IVP For Pain 08/20/18 16:04 08/22/18 16:03 Ondansetron HCl (Zofran) 4 mg Q6H PRN IVP Nausea & Vomiting 08/20/18 17:00 09/11/18 16:59 Pantoprazole (Protonix) 40 mg EVERY 12 HOURS IVP 08/20/18 21:00 09/14/18 20:59 Piperacillin Sod/ Tazobactam Sod 2.25 gm/Dextrose 55 ml @ 110 mls/hr Q8H IVPB 08/20/18 18:00 08/23/18 17:59 Vancomycin HCl (Vanco rx to dose) 1 ea DAILY PRN MISC Per rx protocol 08/21/18 09:00 09/14/18 17:29 Donte Null M.D. Aug 20, 2018 17:32
[2018-08-20] MEDS ORDERED: Piperacillin/Tazobactam 2.25 GM in D5W 55 ML IVPB SCH (18:00)
[2018-08-20] MEDS ORDERED: D5W 275ml ONE (18:19)
[2018-08-20] MEDS ORDERED: NS 275ml ONE (18:19)
--- NOTE | 2018-08-20 18:58 | Cardiology Report ---
APPROVED REPORT EXAM: Two-dimensional and M-mode echocardiogram with Doppler and color Doppler. INDICATION Pericardial effusion M-Mode DIMENSIONS IVSd1.6 (0.7-1.1cm)Left Atrium (MM)4.0 (1.6-4.0cm) LVDd4.5 (3.5-5.6cm)Aortic Root3.7 (2.0-3.7cm) PWd2.0 (0.7-1.1cm)Aortic Cusp Exc.1.9 (1.5-2.0cm) LVDs2.9 (2.5-4.0cm) PWs2.5 cm Normal left ventricular chamber size. Mildly depressed systolic function and wall motion. Left ventricular ejection fraction estimated to be 50 %. Mild left ventricular hypertrophy. Large circumferential pericardial effusion. Mild left atrial enlargement. partial right atrial collapse as was present on prior study suggestive of early tamponade physiology as before Right cardiac chamber sizes are within normal limits. Mild focal aortic valve sclerosis with adequate cusp excursion. Mildly thickened mitral valve leaflets with normal excursion. Mild mitral annulus and aortic root calcification. Normal pulmonic valve structure. Normal tricuspid valve structure. IVC dilated at 2.2 cm without physiological collapse, suggestive of increased RA pressure. A color flow and spectral Doppler study was performed and revealed: Mild aortic insufficiency. Moderate mitral regurgitation. Mitral inflownon diagnostic due to afib Moderate tricuspid regurgitation. Tricuspid systolic velocities suggests peak right ventricular systolic pressure of 58 mmHg, consistent with moderate pulmonary hypertension. Mild pulmonic regurgitation present. over all no significnat change since prior study in term of pericardial effusion
--- NOTE | 2018-08-20 19:45 | Cardiology Report ---
APPROVED REPORT EKG Measurement Heart [id number] Sinus rhythm with premature atrial complexes Abnormal ECG
[2018-08-20] MEDS ORDERED: Dyna-Hex 2% Top Sol 2oz TOPIC SCH (20:00)
[2018-08-20] MEDS: Metoprolol Tartrate 50mg tab ORAL SCH (21:32)
--- NOTE | 2018-08-20 22:57 | General Surgery Progress Note ---
General Surgery-Progress Note Subjective Procedure Performed right internal jugular central venous catheter insertion Additional Comments called to evaluate patient. patient pulled our right IJ central venous catheter and began bleeding from catheter site. Objective Last 24 Hour Vital Signs Date Time Temp Pulse Resp B/P (MAP) Pulse Ox O2 Delivery O2 Flow Rate FiO2 08/20/18 21:32 86 147/70 08/20/18 20:00 97.3 86 20 147/70 (95) 99 97.3 08/20/18 19:58 99 Venturi Mask 14.0 55 08/20/18 19:58 Venturi Mask 14.0 55 08/20/18 19:37 89 08/20/18 16:00 55 08/20/18 16:00 97.5 89 22 129/65 (86) 99 97.5 08/20/18 15:37 92 08/20/18 15:00 91 22 143/60 (87) 98 08/20/18 14:00 87 22 129/62 (84) 98 08/20/18 14:00 143/60 08/20/18 13:00 85 22 136/55 (82) 98 08/20/18 12:00 90 08/20/18 12:00 97.5 85 21 112/60 (77) 100 97.5 08/20/18 12:00 Venturi Mask Venturi Mask 08/20/18 12:00 55 08/20/18 11:00 87 22 130/55 (80) 98 08/20/18 10:00 87 23 145/52 (83) 98 08/20/18 09:42 83 161/59 08/20/18 09:00 83 22 149/59 (89) 98 08/20/18 08:00 98.0 85 21 151/62 (91) 100 98.0 08/20/18 08:00 55 08/20/18 08:00 Venturi Mask Venturi Mask 08/20/18 08:00 92 08/20/18 07:50 Venturi Mask 14.0 55 08/20/18 07:50 100 Venturi Mask 14.0 55 08/20/18 07:03 Simple Mask 15.0 08/20/18 07:00 83 23 161/59 (93) 98 08/20/18 06:00 89 24 154/54 (87) 98 08/20/18 05:35 155/60 08/20/18 05:00 87 22 155/60 (91) 97 08/20/18 04:00 97.8 88 21 164/58 (93) 100 97.8 08/20/18 04:00 Venturi Mask Venturi Mask 08/20/18 04:00 55 08/20/18 03:07 89 08/20/18 03:00 89 23 151/64 (93) 100 08/20/18 02:00 88 22 151/63 (92) 100 08/20/18 01:00 92 24 132/63 (86) 97 08/20/18 00:00 Venturi Mask Venturi Mask 08/20/18 00:00 55 08/20/18 00:00 99.0 87 26 148/54 (85) 100 99.0 08/19/18 23:37 177/81 08/19/18 23:06 101 08/19/18 23:00 95 27 177/81 (113) 94 I&O Intake and Output 08/19/18 08/20/18 19:00 07:00 Intake Total 675 ml 185 ml Output Total 0 ml 120 ml Balance 675 ml 65 ml Intake Oral 460 ml 50 ml IV Total 165 ml 55 ml Other 50 ml 80 ml Output Urine Total 0 ml 120 ml # Voids 1 1 # Bowel Movements 1 Dressing: saturated Drains: none Cardiovascular: RSR Respiratory: clear Abdomen: soft, flat, non-tender Extremities: no cyanosis Laboratory Tests Test 08/20/18 04:40 White Blood Count 11.5 K/UL (4.8-10.8) H Red Blood Count 3.14 M/UL (4.70-6.10) L Hemoglobin 10.2 G/DL (14.2-18.0) L Hematocrit 30.3 % (42.0-52.0) L Mean Corpuscular Volume 96 FL (80-99) Mean Corpuscular Hemoglobin 32.5 PG (27.0-31.0) H Mean Corpuscular Hemoglobin Concent 33.7 G/DL (32.0-36.0) Red Cell Distribution Width 17.8 % (11.6-14.8) H Platelet Count 167 K/UL (150-450) Mean Platelet Volume 6.6 FL (6.5-10.1) Neutrophils (%) (Auto) 81.0 % (45.0-75.0) H Lymphocytes (%) (Auto) 5.6 % (20.0-45.0) L Monocytes (%) (Auto) 11.2 % (1.0-10.0) H Eosinophils (%) (Auto) 1.8 % (0.0-3.0) Basophils (%) (Auto) 0.5 % (0.0-2.0) Sodium Level 143 MMOL/L (136-145) Potassium Level 3.5 MMOL/L (3.5-5.1) Chloride Level 99 MMOL/L (98-107) Carbon Dioxide Level 27 MMOL/L (21-32) Anion Gap 17 mmol/L (5-15) H Blood Urea Nitrogen 69 mg/dL (7-18) H Creatinine 7.4 MG/DL (0.55-1.30) H Estimat Glomerular Filtration Rate mL/min (>60) Glucose Level 109 MG/DL (74-106) H Calcium Level 8.8 MG/DL (8.5-10.1) Phosphorus Level 6.4 MG/DL (2.5-4.9) H Magnesium Level 2.2 MG/DL (1.8-2.4) Total Bilirubin 1.2 MG/DL (0.2-1.0) H Direct Bilirubin 0.5 MG/DL (0.0-0.3) H Aspartate Amino Transf (AST/SGOT) 28 U/L (15-37) Alanine Aminotransferase (ALT/SGPT) 67 U/L (12-78) Alkaline Phosphatase 112 U/L (46-116) Troponin I 0.412 ng/mL (0.000-0.056) C-Reactive Protein, Quantitative 27.3 mg/dL (0.00-0.90) H Total Protein 6.3 G/DL (6.4-8.2) L Albumin 2.2 G/DL (3.4-5.0) L Globulin 4.1 g/dL Albumin/Globulin Ratio 0.5 (1.0-2.7) L Plan Problems: (1) Acute exacerbation of CHF (congestive heart failure) (2) Acute respiratory failure Assessment & Plan: overall improving agitated and pull out line pressure held and since good hemostasis dressings applied per report d/c planning okay to hold off on placing new line transition to oral meds will follow thank you Ghanshyam Quintanilla Aug 20, 2018 22:57
[2018-08-21 04:00] VITALS: BP 147/67
[2018-08-21] MEDS: HydrALAZINE 25mg tab ORAL SCH ×3 (05:39→21:16)
[2018-08-21 07:59] LABS: ALANINE AMINOTRANSFERASE 50 U/L (12-78); ALBUMIN 2.3 G/DL (3.4-5.0); ALBUMIN/GLOBULIN RATIO 0.5 (1.0-2.7); ALKALINE PHOSPHATASE 119 U/L (46-116); ANION GAP 14 mmol/L (5-15); ASPARTATE AMINO TRANSFERASE 35 U/L (15-37); BILIRUBIN,TOTAL 1.1 MG/DL (0.2-1.0); BLOOD UREA NITROGEN 48 mg/dL (7-18); CALCIUM 9.2 MG/DL (8.5-10.1); CARBON DIOXIDE 25 MMOL/L (21-32); CHLORIDE 98 MMOL/L (98-107); CREATININE 6.7 MG/DL (0.55-1.30); PHOSPHORUS 5.8 MG/DL (2.5-4.9); POTASSIUM 4.9 MMOL/L (3.5-5.1); SODIUM 137 MMOL/L (136-145)
[2018-08-21 08:00] VITALS: BP 122/51
[2018-08-21 08:00] LABS: BILIRUBIN,DIRECT 0.4 MG/DL (0.0-0.3)
[2018-08-21] MEDS: Docusate 100mg cap ORAL SCH ×3 (08:45→18:06)
[2018-08-21] MEDS: Metoprolol Tartrate 50mg tab ORAL SCH ×2 (08:49→21:14)
[2018-08-21] MEDS: Pantoprazole Inj IVP SCH (08:50)
[2018-08-21 09:50] LABS: EOSINOPHILS % (AUTO) 2.6 % (0.0-3.0); HEMATOCRIT 31.5 % (42.0-52.0); HEMOGLOBIN 10.4 G/DL (14.2-18.0); LYMPHOCYTES % (AUTO) 7.6 % (20.0-45.0); MEAN CORPUSCULAR VOLUME 98 FL (80-99); MONOCYTES % (AUTO) 17.1 % (1.0-10.0); NEUTROPHILS % (AUTO) 71.7 % (45.0-75.0); PLATELET COUNT 199 K/UL (150-450); RED BLOOD COUNT 3.22 M/UL (4.70-6.10); WHITE BLOOD COUNT 9.3 K/UL (4.8-10.8)
--- NOTE | 2018-08-21 10:06 | General Progress Note ---
Assessment/Plan Problem List: (1) Respiratory arrest ICD Codes: R09.2 - Respiratory arrest SNOMED: 15954374 (2) Aspiration pneumonia ICD Codes: J69.0 - Pneumonitis due to inhalation of food and vomit SNOMED: 964600166 (3) Hemoptysis ICD Codes: R04.2 - Hemoptysis SNOMED: 57933783 (4) ESRD (end stage renal disease) on dialysis ICD Codes: N18.6 - End stage renal failure on dialysis; Z99.2 - Dependence on renal dialysis SNOMED: 408139073 (5) Hypertension ICD Codes: I10 - Hypertension SNOMED: 14469212 (6) Cardiac ischemia ICD Codes: I25.9 - Chronic ischemic heart disease, unspecified SNOMED: 443852190 Status: stable Status Narrative pulled out triple lumen Assessment/Plan change meds to po- dialyse in am and DC self extubated 08/17 pulm support diacussed with 2 daughters at bed side 08/19 transfuse 2 units- 08/16 HD 08/16 again 08/18 and 08/20 minimal Sedation as needed discussed with RN K supplement as needed to tele Subjective ROS Limited/Unobtainable: No Constitutional: Reports: malaise Allergies: Coded Allergies: BANANA (Verified Allergy, Severe, 08/12/18) GIL (Verified Allergy, Severe, 08/12/18) CARROT (Verified Allergy, Severe, 08/12/18) Dairy (Verified Allergy, Severe, 08/12/18) GRAPE (Verified Allergy, Severe, 08/12/18) Pork (Verified Allergy, Severe, 08/12/18) Potato (Verified Allergy, Severe, 08/12/18) Objective Last 24 Hour Vital Signs Date Time Temp Pulse Resp B/P (MAP) Pulse Ox O2 Delivery O2 Flow Rate FiO2 08/21/18 09:00 Venturi Mask Venturi Mask 08/21/18 08:49 73 122/51 08/21/18 08:00 14.0 55 08/21/18 08:00 97.0 73 20 122/51 (74) 100 97.0 08/21/18 07:30 101 20 Venturi Mask 14.0 55 08/21/18 07:30 97 Venturi Mask 14.0 55 08/21/18 07:30 Venturi Mask 14.0 55 08/21/18 05:39 147/67 08/21/18 04:00 97.3 80 18 147/67 (93) 97 97.3 08/21/18 04:00 14.0 55 08/21/18 03:35 86 08/21/18 00:00 14.0 55 08/20/18 23:32 74 08/20/18 23:32 133/58 08/20/18 21:32 86 147/70 08/20/18 21:00 Venturi Mask Venturi Mask 08/20/18 20:00 97.3 86 20 147/70 (95) 99 97.3 08/20/18 19:58 99 Venturi Mask 14.0 55 08/20/18 19:58 Venturi Mask 14.0 55 08/20/18 19:37 89 08/20/18 16:00 55 08/20/18 16:00 97.5 89 22 129/65 (86) 99 97.5 08/20/18 15:37 92 08/20/18 15:00 91 22 143/60 (87) 98 08/20/18 14:00 87 22 129/62 (84) 98 08/20/18 14:00 143/60 08/20/18 13:00 85 22 136/55 (82) 98 08/20/18 12:00 90 08/20/18 12:00 97.5 85 21 112/60 (77) 100 97.5 08/20/18 12:00 Venturi Mask Venturi Mask 08/20/18 12:00 55 08/20/18 11:00 87 22 130/55 (80) 98 Intake and Output 08/20/18 08/21/18 19:00 07:00 Output Total 2000 ml Balance -2000 ml Output Urine Total 0 ml Hemodialysis UF 2000 ml # Voids 2 # Bowel Movements 4 1 Laboratory Tests 08/21/18 07:15: Sodium Level 137, Potassium Level 4.9, Chloride Level 98, Carbon Dioxide Level 25, Anion Gap 14, Blood Urea Nitrogen 48H, Creatinine 6.7H, Estimat Glomerular Filtration Rate , Glucose Level 113H, Calcium Level 9.2, Phosphorus Level 5.8H, Magnesium Level 2.4, Total Bilirubin 1.1H, Direct Bilirubin 0.4H, Aspartate Amino Transf (AST/SGOT) 35, Alanine Aminotransferase (ALT/SGPT) 50, Alkaline Phosphatase 119H, Troponin I 0.268H, Total Protein 6.8, Albumin 2.3L, Globulin 4.5, Albumin/Globulin Ratio 0.5L 08/21/18 09:05: Arterial Blood pH 7.464H, Arterial Blood Partial Pressure CO2 39.5, Arterial Blood Partial Pressure O2 178.6H, Arterial Blood HCO3 27.7H, Arterial Blood Oxygen Saturation 98.7, Arterial Blood Base Excess 3.7H, Ugo Test Positive 08/21/18 09:30: White Blood Count 9.3, Red Blood Count 3.22L, Hemoglobin 10.4L, Hematocrit 31.5L , Mean Corpuscular Volume 98, Mean Corpuscular Hemoglobin 32.2H, Mean Corpuscular Hemoglobin Concent 32.9, Red Cell Distribution Width 18.0H, Platelet Count 199, Mean Platelet Volume 7.0, Neutrophils (%) (Auto) 71.7, Lymphocytes (%) (Auto) 7.6L, Monocytes (%) (Auto) 17.1H, Eosinophils (%) (Auto) 2.6, Basophils (%) (Auto) 1.0, Uric Acid [Pending], Pro-B-Type Natriuretic Peptide [Pending] Height (Feet): 5 Height (Inches): 8.00 Weight (Pounds): 127 General Appearance: no apparent distress Objective on bipapa post self extubation Ady Gómez MD Aug 21, 2018 10:06
--- NOTE | 2018-08-21 10:10 | Diagnostic Imaging Report ---
Indication: Shortness of breath Technique: One view of the chest Comparison: 08/20/2018 Findings: Heart is enlarged. There is bilateral interstitial and airspace edema which appears unchanged. There are likely small bilateral pleural effusions. Previously demonstrated central venous catheter is no longer evident Impression: Interim central line removal. Otherwise essentially unchanged over one day
--- NOTE | 2018-08-21 10:43 | Pulmonology Progress Note ---
Assessment/Plan Problems: (1) Acute respiratory failure (2) Aspiration pneumonia (3) COPD (chronic obstructive pulmonary disease) (4) Interstitial lung disease (5) Non-compliance with treatment (6) Hypertension (7) ESRD (end stage renal disease) on dialysis (8) Debility Assessment/Plan improving taper oxygen antitussives blood cultures are negative PO abx, Augmentin HD by nephrology sliding scale diabetic diet titrate fio2 to sat of 92% Subjective ROS Limited/Unobtainable: Yes Constitutional: Reports: no symptoms Allergies: Coded Allergies: BANANA (Verified Allergy, Severe, 08/12/18) GIL (Verified Allergy, Severe, 08/12/18) CARROT (Verified Allergy, Severe, 08/12/18) Dairy (Verified Allergy, Severe, 08/12/18) GRAPE (Verified Allergy, Severe, 08/12/18) Pork (Verified Allergy, Severe, 08/12/18) Potato (Verified Allergy, Severe, 08/12/18) Objective Last 24 Hour Vital Signs Date Time Temp Pulse Resp B/P (MAP) Pulse Ox O2 Delivery O2 Flow Rate FiO2 08/21/18 09:00 Venturi Mask Venturi Mask 08/21/18 08:49 73 122/51 08/21/18 08:00 14.0 55 08/21/18 08:00 97.0 73 20 122/51 (74) 100 97.0 08/21/18 07:30 101 20 Venturi Mask 14.0 55 08/21/18 07:30 97 Venturi Mask 14.0 55 08/21/18 07:30 Venturi Mask 14.0 55 08/21/18 05:39 147/67 08/21/18 04:00 97.3 80 18 147/67 (93) 97 97.3 08/21/18 04:00 14.0 55 08/21/18 03:35 86 08/21/18 00:00 14.0 55 08/20/18 23:32 74 08/20/18 23:32 133/58 08/20/18 21:32 86 147/70 08/20/18 21:00 Venturi Mask Venturi Mask 08/20/18 20:00 97.3 86 20 147/70 (95) 99 97.3 08/20/18 19:58 99 Venturi Mask 14.0 55 08/20/18 19:58 Venturi Mask 14.0 55 08/20/18 19:37 89 08/20/18 16:00 55 08/20/18 16:00 97.5 89 22 129/65 (86) 99 97.5 08/20/18 15:37 92 08/20/18 15:00 91 22 143/60 (87) 98 08/20/18 14:00 87 22 129/62 (84) 98 08/20/18 14:00 143/60 08/20/18 13:00 85 22 136/55 (82) 98 08/20/18 12:00 90 08/20/18 12:00 97.5 85 21 112/60 (77) 100 97.5 08/20/18 12:00 Venturi Mask Venturi Mask 08/20/18 12:00 55 08/20/18 11:00 87 22 130/55 (80) 98 Intake and Output 08/20/18 08/21/18 19:00 07:00 Output Total 2000 ml Balance -2000 ml Output Urine Total 0 ml Hemodialysis UF 2000 ml # Voids 2 # Bowel Movements 4 1 General Appearance: cachetic HEENT: normocephalic, atraumatic Respiratory/Chest: chest wall non-tender, lungs clear Cardiovascular: normal peripheral pulses, normal rate, regular rhythm Abdomen: normal bowel sounds, soft, non tender Genitourinary: normal external genitalia Extremities: no cyanosis Skin: no rash 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 Lymphatic: no neck adenopathy Laboratory Tests 08/21/18 07:15: Sodium Level 137, Potassium Level 4.9, Chloride Level 98, Carbon Dioxide Level 25, Anion Gap 14, Blood Urea Nitrogen 48H, Creatinine 6.7H, Estimat Glomerular Filtration Rate , Glucose Level 113H, Calcium Level 9.2, Phosphorus Level 5.8H, Magnesium Level 2.4, Total Bilirubin 1.1H, Direct Bilirubin 0.4H, Aspartate Amino Transf (AST/SGOT) 35, Alanine Aminotransferase (ALT/SGPT) 50, Alkaline Phosphatase 119H, Troponin I 0.268H, Total Protein 6.8, Albumin 2.3L, Globulin 4.5, Albumin/Globulin Ratio 0.5L 08/21/18 09:05: Arterial Blood pH 7.464H, Arterial Blood Partial Pressure CO2 39.5, Arterial Blood Partial Pressure O2 178.6H, Arterial Blood HCO3 27.7H, Arterial Blood Oxygen Saturation 98.7, Arterial Blood Base Excess 3.7H, Ugo Test Positive 08/21/18 09:30: White Blood Count 9.3, Red Blood Count 3.22L, Hemoglobin 10.4L, Hematocrit 31.5L , Mean Corpuscular Volume 98, Mean Corpuscular Hemoglobin 32.2H, Mean Corpuscular Hemoglobin Concent 32.9, Red Cell Distribution Width 18.0H, Platelet Count 199, Mean Platelet Volume 7.0, Neutrophils (%) (Auto) 71.7, Lymphocytes (%) (Auto) 7.6L, Monocytes (%) (Auto) 17.1H, Eosinophils (%) (Auto) 2.6, Basophils (%) (Auto) 1.0, Uric Acid [Pending], Pro-B-Type Natriuretic Peptide [Pending] Current Medications Medications (Trade) Dose Ordered Sig/Kris Route PRN Reason Start Time Stop Time Status Last Admin Dose Admin Acetaminophen (Tylenol) 650 mg Q4H PRN ORAL pain and Temp of 100 F 08/20/18 16:04 09/11/18 16:03 08/21/18 03:58 Albuterol/ Ipratropium (Albuterol/ Ipratropium) 3 ml Q4H PRN HHN sob 08/20/18 16:04 08/22/18 16:03 Amoxicillin/ Clavulanate Potassium (Augmentin) 500 mg DAILY ORAL 08/21/18 11:00 08/28/18 10:59 Amoxicillin/ Clavulanate Potassium (Augmentin) 500 mg POSTHD ORAL 08/22/18 09:00 08/22/18 21:00 Amoxicillin/ Clavulanate Potassium (Augmentin) 500 mg RX-PRE DIALYSIS ORAL 08/22/18 06:00 08/22/18 18:00 Chlorhexidine Gluconate (Anni-Hex 2%) 1 applic DAILY@2000 TOPIC 08/20/18 20:00 09/17/18 19:59 08/20/18 21:22 Diphenhydramine HCl (Benadryl) 50 mg HSPRN PRN ORAL Insomnia 08/20/18 22:45 09/19/18 22:44 08/20/18 23:33 Docusate Sodium (Colace) 100 mg THREE TIMES A DAY ORAL 08/21/18 13:00 09/11/18 12:59 Epoetin Issa (Procrit (for ESRD on dialysis)) 10,000 units SUN-SUN-SUN SUBQ 08/21/18 21:00 09/11/18 20:59 Hydralazine HCl (Apresoline) 10 mg Q4H PRN IV bp > 160 syst when not agitate 08/20/18 16:16 09/16/18 16:15 Hydralazine HCl (Apresoline) 25 mg Q8HR ORAL 08/20/18 22:00 09/11/18 13:59 08/21/18 05:39 Metoprolol Tartrate (Lopressor) 50 mg Q12HR ORAL 08/20/18 21:00 09/19/18 08:59 08/20/18 21:32 Ondansetron HCl (Zofran) 4 mg Q6H PRN IVP Nausea & Vomiting 08/20/18 17:00 09/11/18 16:59 Pantoprazole (Protonix) 40 mg ACBREAKFAST ORAL 08/21/18 11:00 09/20/18 10:59 Vancomycin HCl (Vanco rx to dose) 1 ea DAILY PRN MISC Per rx protocol 08/21/18 09:00 09/14/18 17:29 Darius Watson MD Aug 21, 2018 10:43
[2018-08-21 12:00] VITALS: BP 117/49
--- NOTE | 2018-08-21 13:43 | General Surgery Progress Note ---
General Surgery-Progress Note Subjective Procedure Performed right internal jugular central venous catheter insertion Symptoms: improved, pain absent, tolerating diet, passing flatus Additional Comments right ij site clean/ dry Objective Last 24 Hour Vital Signs Date Time Temp Pulse Resp B/P (MAP) Pulse Ox O2 Delivery O2 Flow Rate FiO2 08/21/18 13:18 123/51 08/21/18 12:00 97.5 82 20 117/49 (71) 100 97.5 08/21/18 12:00 76 08/21/18 12:00 5.0 08/21/18 09:00 Venturi Mask Venturi Mask 08/21/18 08:49 73 122/51 08/21/18 08:00 86 08/21/18 08:00 14.0 55 08/21/18 08:00 97.0 73 20 122/51 (74) 100 97.0 08/21/18 07:30 101 20 Venturi Mask 14.0 55 08/21/18 07:30 97 Venturi Mask 14.0 55 08/21/18 07:30 Venturi Mask 14.0 55 08/21/18 05:39 147/67 08/21/18 04:00 97.3 80 18 147/67 (93) 97 97.3 08/21/18 04:00 14.0 55 08/21/18 03:35 86 08/21/18 00:00 14.0 55 08/20/18 23:32 74 08/20/18 23:32 133/58 08/20/18 21:32 86 147/70 08/20/18 21:00 Venturi Mask Venturi Mask 08/20/18 20:00 97.3 86 20 147/70 (95) 99 97.3 08/20/18 19:58 99 Venturi Mask 14.0 55 08/20/18 19:58 Venturi Mask 14.0 55 08/20/18 19:37 89 08/20/18 16:00 55 08/20/18 16:00 97.5 89 22 129/65 (86) 99 97.5 08/20/18 15:37 92 08/20/18 15:00 91 22 143/60 (87) 98 08/20/18 14:00 87 22 129/62 (84) 98 08/20/18 14:00 143/60 I&O Intake and Output 08/20/18 08/21/18 19:00 07:00 Output Total 2000 ml Balance -2000 ml Output Urine Total 0 ml Hemodialysis UF 2000 ml # Voids 2 # Bowel Movements 4 1 Dressing: dry Wound: clean Drains: none Cardiovascular: RSR Respiratory: clear Abdomen: soft, flat, non-tender, present bowel sounds Extremities: no cyanosis Laboratory Tests Test 08/21/18 07:15 08/21/18 09:05 08/21/18 09:30 Sodium Level 137 MMOL/L (136-145) Potassium Level 4.9 MMOL/L (3.5-5.1) Chloride Level 98 MMOL/L (98-107) Carbon Dioxide Level 25 MMOL/L (21-32) Anion Gap 14 mmol/L (5-15) Blood Urea Nitrogen 48 mg/dL (7-18) H Creatinine 6.7 MG/DL (0.55-1.30) H Estimat Glomerular Filtration Rate mL/min (>60) Glucose Level 113 MG/DL (74-106) H Calcium Level 9.2 MG/DL (8.5-10.1) Phosphorus Level 5.8 MG/DL (2.5-4.9) H Magnesium Level 2.4 MG/DL (1.8-2.4) Total Bilirubin 1.1 MG/DL (0.2-1.0) H Direct Bilirubin 0.4 MG/DL (0.0-0.3) H Aspartate Amino Transf (AST/SGOT) 35 U/L (15-37) Alanine Aminotransferase (ALT/SGPT) 50 U/L (12-78) Alkaline Phosphatase 119 U/L (46-116) H Troponin I 0.268 ng/mL (0.000-0.056) Total Protein 6.8 G/DL (6.4-8.2) Albumin 2.3 G/DL (3.4-5.0) L Globulin 4.5 g/dL Albumin/Globulin Ratio 0.5 (1.0-2.7) L Arterial Blood pH 7.464 (7.350-7.450) Arterial Blood Partial Pressure CO2 39.5 mmHg (35.0-45.0) Arterial Blood Partial Pressure O2 178.6 mmHg (75.0-100.0) H Arterial Blood HCO3 27.7 mmol/L (22.0-26.0) H Arterial Blood Oxygen Saturation 98.7 % (95-100) Arterial Blood Base Excess 3.7 (-2-2) H Ugo Test Positive White Blood Count 9.3 K/UL (4.8-10.8) Red Blood Count 3.22 M/UL (4.70-6.10) L Hemoglobin 10.4 G/DL (14.2-18.0) L Hematocrit 31.5 % (42.0-52.0) L Mean Corpuscular Volume 98 FL (80-99) Mean Corpuscular Hemoglobin 32.2 PG (27.0-31.0) H Mean Corpuscular Hemoglobin Concent 32.9 G/DL (32.0-36.0) Red Cell Distribution Width 18.0 % (11.6-14.8) H Platelet Count 199 K/UL (150-450) Mean Platelet Volume 7.0 FL (6.5-10.1) Neutrophils (%) (Auto) 71.7 % (45.0-75.0) Lymphocytes (%) (Auto) 7.6 % (20.0-45.0) L Monocytes (%) (Auto) 17.1 % (1.0-10.0) H Eosinophils (%) (Auto) 2.6 % (0.0-3.0) Basophils (%) (Auto) 1.0 % (0.0-2.0) Uric Acid 7.6 MG/DL (2.6-7.2) H Pro-B-Type Natriuretic Peptide 52232 pg/mL (0-125) H Plan Problems: (1) Acute exacerbation of CHF (congestive heart failure) (2) Acute respiratory failure Assessment & Plan: overall improving dressing clean and dry no bleeding since d/c planning okay to hold off on placing new line transition to oral meds will follow thank you Ghanshyam Quintanilla Aug 21, 2018 13:43
--- NOTE | 2018-08-21 14:46 | Infectious Diseases Prog Note ---
Assessment/Plan Problems: (1) HCAP (healthcare-associated pneumonia) Assessment & Plan: now on high flow oxygen , continue zosyn and vancomycin empirically for 10 days total , repeated sputum culture showed normal respiratory [place] , aspiration precaution and keep HOB > 30 degree . EOT (2) Acute respiratory failure Assessment & Plan: due to the above, S/P code , extubated on high flow oxygen via mask , continue inhalers , monitor CXR , pulmonary is following (3) Coagulopathy Assessment & Plan: resolved , off anticoagulation , monitor INR, cardiology is following (4) Hemoptysis Assessment & Plan: due to the above , improving , monitor H/H , transfuse blood as needed, monitor CXR . (5) ESRD (end stage renal disease) on dialysis Assessment & Plan: on HD , renal is following (6) Cardiac ischemia Assessment & Plan: with elevated troponin , now off anticoagulation, cardiology is following Subjective Constitutional: Reports: no symptoms HEENT: Reports: no symptoms Respiratory: Reports: dry cough Breasts: Reports: no symptoms Cardiovascular: Reports: no symptoms Gastrointestinal/Abdominal: Reports: no symptoms Genitourinary: Reports: no symptoms Neurologic: Reports: no symptoms Psychiatric: Reports: no symptoms Skin: Reports: no symptoms Endocrine: Reports: no symptoms Hematologic: Reports: no symptoms Musculoskeletal: Reports: no symptoms Allergies: Coded Allergies: BANANA (Verified Allergy, Severe, 08/12/18) GIL (Verified Allergy, Severe, 08/12/18) CARROT (Verified Allergy, Severe, 08/12/18) Dairy (Verified Allergy, Severe, 08/12/18) GRAPE (Verified Allergy, Severe, 08/12/18) Pork (Verified Allergy, Severe, 08/12/18) Potato (Verified Allergy, Severe, 08/12/18) Subjective he was extubated and started on BIPAP , comfortable in ICU , follows commands, NAD Objective Vital Signs Last 24 Hour Vital Signs Date Time Temp Pulse Resp B/P (MAP) Pulse Ox O2 Delivery O2 Flow Rate FiO2 08/21/18 13:18 123/51 08/21/18 12:00 97.5 82 20 117/49 (71) 100 97.5 08/21/18 12:00 76 08/21/18 12:00 5.0 08/21/18 09:00 Venturi Mask Venturi Mask 10/24/18 08:49 73 122/51 08/21/18 08:00 86 08/21/18 08:00 14.0 55 08/21/18 08:00 97.0 73 20 122/51 (74) 100 97.0 08/21/18 07:30 101 20 Venturi Mask 14.0 55 08/21/18 07:30 97 Venturi Mask 14.0 55 08/21/18 07:30 Venturi Mask 14.0 55 08/21/18 05:39 147/67 08/21/18 04:00 97.3 80 18 147/67 (93) 97 97.3 08/21/18 04:00 14.0 55 08/21/18 03:35 86 08/21/18 00:00 14.0 55 08/20/18 23:32 74 08/20/18 23:32 133/58 08/20/18 21:32 86 147/70 08/20/18 21:00 Venturi Mask Venturi Mask 08/20/18 20:00 97.3 86 20 147/70 (95) 99 97.3 08/20/18 19:58 99 Venturi Mask 14.0 55 08/20/18 19:58 Venturi Mask 14.0 55 08/20/18 19:37 89 08/20/18 16:00 55 08/20/18 16:00 97.5 89 22 129/65 (86) 99 97.5 08/20/18 15:37 92 08/20/18 15:00 91 22 143/60 (87) 98 Height (Feet): 5 Height (Inches): 8.00 Weight (Pounds): 127 General Appearance: WD/WN, no acute distress HEENT: normocephalic, atraumatic, anicteric, mucous membranes moist Respiratory/Chest: chest wall non-tender, lungs clear, normal breath sounds, no respiratory distress, no accessory muscle use Cardiovascular: normal peripheral pulses, normal rate, regular rhythm, no gallop/murmur, no JVD Abdomen: normal bowel sounds, soft, non tender, no organomegaly, non distended , no mass, no scars Extremities: no cyanosis, no clubbing Skin: no rash, no lesions, no ulcers Neurologic/Psychiatric: alert, oriented x 3, responsive Lymphatic: no neck adenopathy, no groin adenopathy Musculoskeletal: normal muscle bulk Microbiology Date/Time Source Procedure Growth Status 08/20/18 22:00 Stool Clostridium difficile Toxin Assay - Final Complete Laboratory Tests Test 08/21/18 07:15 08/21/18 09:05 08/21/18 09:30 Sodium Level 137 MMOL/L (136-145) Potassium Level 4.9 MMOL/L (3.5-5.1) Chloride Level 98 MMOL/L (98-107) Carbon Dioxide Level 25 MMOL/L (21-32) Anion Gap 14 mmol/L (5-15) Blood Urea Nitrogen 48 mg/dL (7-18) H Creatinine 6.7 MG/DL (0.55-1.30) H Estimat Glomerular Filtration Rate mL/min (>60) Glucose Level 113 MG/DL (74-106) H Calcium Level 9.2 MG/DL (8.5-10.1) Phosphorus Level 5.8 MG/DL (2.5-4.9) H Magnesium Level 2.4 MG/DL (1.8-2.4) Total Bilirubin 1.1 MG/DL (0.2-1.0) H Direct Bilirubin 0.4 MG/DL (0.0-0.3) H Aspartate Amino Transf (AST/SGOT) 35 U/L (15-37) Alanine Aminotransferase (ALT/SGPT) 50 U/L (12-78) Alkaline Phosphatase 119 U/L (46-116) H Troponin I 0.268 ng/mL (0.000-0.056) Total Protein 6.8 G/DL (6.4-8.2) Albumin 2.3 G/DL (3.4-5.0) L Globulin 4.5 g/dL Albumin/Globulin Ratio 0.5 (1.0-2.7) L Arterial Blood pH 7.464 (7.350-7.450) Arterial Blood Partial Pressure CO2 39.5 mmHg (35.0-45.0) Arterial Blood Partial Pressure O2 178.6 mmHg (75.0-100.0) H Arterial Blood HCO3 27.7 mmol/L (22.0-26.0) H Arterial Blood Oxygen Saturation 98.7 % (95-100) Arterial Blood Base Excess 3.7 (-2-2) H Ugo Test Positive White Blood Count 9.3 K/UL (4.8-10.8) Red Blood Count 3.22 M/UL (4.70-6.10) L Hemoglobin 10.4 G/DL (14.2-18.0) L Hematocrit 31.5 % (42.0-52.0) L Mean Corpuscular Volume 98 FL (80-99) Mean Corpuscular Hemoglobin 32.2 PG (27.0-31.0) H Mean Corpuscular Hemoglobin Concent 32.9 G/DL (32.0-36.0) Red Cell Distribution Width 18.0 % (11.6-14.8) H Platelet Count 199 K/UL (150-450) Mean Platelet Volume 7.0 FL (6.5-10.1) Neutrophils (%) (Auto) 71.7 % (45.0-75.0) Lymphocytes (%) (Auto) 7.6 % (20.0-45.0) L Monocytes (%) (Auto) 17.1 % (1.0-10.0) H Eosinophils (%) (Auto) 2.6 % (0.0-3.0) Basophils (%) (Auto) 1.0 % (0.0-2.0) Uric Acid 7.6 MG/DL (2.6-7.2) H Pro-B-Type Natriuretic Peptide 45763 pg/mL (0-125) H Current Medications Medications (Trade) Dose Ordered Sig/Kris Route PRN Reason Start Time Stop Time Status Last Admin Dose Admin Acetaminophen (Tylenol) 650 mg Q4H PRN ORAL pain and Temp of 100 F 08/20/18 16:04 09/11/18 16:03 08/21/18 03:58 Albuterol/ Ipratropium (Albuterol/ Ipratropium) 3 ml Q4H PRN HHN sob 08/20/18 16:04 08/22/18 16:03 Amoxicillin/ Clavulanate Potassium (Augmentin) 500 mg DAILY ORAL 08/21/18 11:00 08/28/18 10:59 08/21/18 10:40 Amoxicillin/ Clavulanate Potassium (Augmentin) 500 mg POSTHD ORAL 08/22/18 09:00 08/22/18 21:00 Amoxicillin/ Clavulanate Potassium (Augmentin) 500 mg RX-PRE DIALYSIS ORAL 08/22/18 06:00 08/22/18 18:00 Chlorhexidine Gluconate (Anni-Hex 2%) 1 applic DAILY@2000 TOPIC 08/20/18 20:00 09/17/18 19:59 08/20/18 21:22 Diphenhydramine HCl (Benadryl) 50 mg HSPRN PRN ORAL Insomnia 08/20/18 22:45 09/19/18 22:44 08/20/18 23:33 Docusate Sodium (Colace) 100 mg THREE TIMES A DAY ORAL 08/21/18 13:00 09/11/18 12:59 08/21/18 13:18 Epoetin Issa (Procrit (for ESRD on dialysis)) 10,000 units SUN-SUN-SUN SUBQ 08/21/18 21:00 09/11/18 20:59 Hydralazine HCl (Apresoline) 10 mg Q4H PRN IV bp > 160 syst when not agitate 08/20/18 16:16 09/16/18 16:15 Hydralazine HCl (Apresoline) 25 mg Q8HR ORAL 08/20/18 22:00 09/11/18 13:59 08/21/18 05:39 Metoprolol Tartrate (Lopressor) 50 mg Q12HR ORAL 08/20/18 21:00 09/19/18 08:59 08/20/18 21:32 Ondansetron HCl (Zofran) 4 mg Q6H PRN IVP Nausea & Vomiting 08/20/18 17:00 09/11/18 16:59 Pantoprazole (Protonix) 40 mg ACBREAKFAST ORAL 08/21/18 11:00 09/20/18 10:59 08/21/18 10:40 Vancomycin HCl (Vanco rx to dose) 1 ea DAILY PRN MISC Per rx protocol 08/21/18 09:00 09/14/18 17:29 Donte Null M.D. Aug 21, 2018 14:46
[2018-08-21 16:00] VITALS: BP 118/74
[2018-08-21] MEDS ORDERED: Metoprolol 5mg/5ml Inj IVP PRN (16:17)
--- NOTE | 2018-08-21 18:41 | Consultation ---
History of Present Illness General Date patient seen: Aug 20, 2018 Chief Complaint: Dyspnea/Respdistress Reason for Consultation: venous access Present Illness HPI 83-year-old male with end-stage renal disease, under my care for his dialysis-related treatment. the pt has depressed mood cognitive impairment. the pt has poor sleep and is on remeron Allergies: Coded Allergies: BANANA (Verified Allergy, Severe, 08/12/18) GIL (Verified Allergy, Severe, 08/12/18) CARROT (Verified Allergy, Severe, 08/12/18) Dairy (Verified Allergy, Severe, 08/12/18) GRAPE (Verified Allergy, Severe, 08/12/18) Pork (Verified Allergy, Severe, 08/12/18) Potato (Verified Allergy, Severe, 08/12/18) Medication History Scheduled Allopurinol* (Allopurinol*), 200 MG ORAL DAILY Allopurinol* (Allopurinol*), 100 MG ORAL BID, (Reported) Aspirin (Aspirin EC), 81 MG ORAL DAILY, (Reported) Bacitracin (Bacitracin), 1 APPLIC TOPIC BID Carvedilol (Coreg), 12.5 MG ORAL EVERY 12 HOURS Darbepoetin Issa In Polysorbat (Aranesp), 35 MCG IV ONCE A WEEK, (Reported) Docusate Sodium* (Colace*), 100 MG ORAL THREE TIMES A DAY Finasteride (Finasteride), 5 MG ORAL DAILY Hydralazine Hcl* (Hydralazine Hcl*), 25 MG ORAL Q8HR Iron Sucrose Complex (Venofer), 50 MG IV ONCE A WEEK, (Reported) Meclizine Hcl* (Antivert*), 12.5 MG ORAL TID Mirtazapine* (Mirtazapine*), 15 MG ORAL BEDTIME Nifedipine Xl* (Procardia Xl*), 60 MG ORAL Q12HR Nifedipine Xl* (Procardia Xl*), 30 MG ORAL DAILY [place]-3 Fatty Acids/Fish Oil ([place] 3 Fish Oil Softgel), 1 EACH PO DAILY, ( Reported) Omeprazole (Omeprazole), 20 MG ORAL DAILY, (Reported) Tamsulosin HCl (Flomax), 0.4 MG ORAL TWICE A DAY Trazodone Hcl (Desyrel), 50 MG ORAL QHS Triamcinolone Acetonide (Triamcinolone Acetonide), 15 GM TP BID, (Reported) Vitamin B Complex (Vitamin B Complex), 1 CAP ORAL DAILY, (Reported) Warfarin Sod* (Coumadin*), 3 MG PO COUMADIN Warfarin Sod* (Warfarin Sod*), 1 MG ORAL DAILY, (Reported) Scheduled PRN Acetaminophen* (Acetaminophen 325MG Tablet*), 650 MG ORAL Q4H PRN Miscellaneous Medications Paricalcitol (Zemplar), 2 MCG IV, (Reported) Patient History Limited by: medical condition History Provided By: Patient, Medical Record Healthcare decision maker Resuscitation status Full Code Advanced Directive on File Past Medical/Surgical History Past Medical/Surgical History: (1) Aspiration pneumonia (2) HCAP (healthcare-associated pneumonia) (3) Cardiac ischemia (4) Respiratory arrest (5) Cardiac arrest (6) Coagulopathy (7) Acute exacerbation of CHF (congestive heart failure) (8) Intractable vomiting (9) Acute respiratory failure (10) Hepatic encephalopathy (11) Cachexia (12) Fluid overload (13) Hypertension (14) Non-compliance with treatment (15) Atrial fibrillation with rapid ventricular response (16) Urinary retention (17) Diarrhea (18) Anemia (19) Intractable diarrhea (20) Pneumonia (21) Debility (22) Interstitial lung disease (23) CVA (cerebral infarction) (24) COPD (chronic obstructive pulmonary disease) (25) Fluid overload (26) ESRD (end stage renal disease) on dialysis (27) Hemoptysis Review of Systems Psychiatric: Reports: prior hx, anxiety, depressed feelings Physical Exam General Appearance: no apparent distress, alert, confused Last 24 Hour Vital Signs Date Time Temp Pulse Resp B/P (MAP) Pulse Ox O2 Delivery O2 Flow Rate FiO2 08/21/18 16:00 5.0 08/21/18 16:00 98.5 85 20 118/74 (89) 99 08/21/18 16:00 84 08/21/18 13:18 123/51 08/21/18 12:00 97.5 82 20 117/49 (71) 100 97.5 08/21/18 12:00 76 08/21/18 12:00 5.0 08/21/18 09:00 Venturi Mask Venturi Mask 08/21/18 08:49 73 122/51 08/21/18 08:00 86 08/21/18 08:00 14.0 55 08/21/18 08:00 97.0 73 20 122/51 (74) 100 97.0 08/21/18 07:30 101 20 Venturi Mask 14.0 55 08/21/18 07:30 97 Venturi Mask 14.0 55 08/21/18 07:30 Venturi Mask 14.0 55 08/21/18 05:39 147/67 08/21/18 04:00 97.3 80 18 147/67 (93) 97 97.3 08/21/18 04:00 14.0 55 08/21/18 03:35 86 08/21/18 00:00 14.0 55 08/20/18 23:32 74 08/20/18 23:32 133/58 08/20/18 21:32 86 147/70 08/20/18 21:00 Venturi Mask Venturi Mask 08/20/18 20:00 97.3 86 20 147/70 (95) 99 97.3 08/20/18 19:58 99 Venturi Mask 14.0 55 08/20/18 19:58 Venturi Mask 14.0 55 08/20/18 19:37 89 Intake and Output 08/20/18 08/21/18 19:00 07:00 Output Total 2000 ml Balance -2000 ml Output Urine Total 0 ml Hemodialysis UF 2000 ml # Voids 2 # Bowel Movements 4 1 Laboratory Tests Test 08/21/18 07:15 08/21/18 09:05 08/21/18 09:30 Sodium Level 137 MMOL/L (136-145) Potassium Level 4.9 MMOL/L (3.5-5.1) Chloride Level 98 MMOL/L (98-107) Carbon Dioxide Level 25 MMOL/L (21-32) Anion Gap 14 mmol/L (5-15) Blood Urea Nitrogen 48 mg/dL (7-18) H Creatinine 6.7 MG/DL (0.55-1.30) H Estimat Glomerular Filtration Rate mL/min (>60) Glucose Level 113 MG/DL (74-106) H Calcium Level 9.2 MG/DL (8.5-10.1) Phosphorus Level 5.8 MG/DL (2.5-4.9) H Magnesium Level 2.4 MG/DL (1.8-2.4) Total Bilirubin 1.1 MG/DL (0.2-1.0) H Direct Bilirubin 0.4 MG/DL (0.0-0.3) H Aspartate Amino Transf (AST/SGOT) 35 U/L (15-37) Alanine Aminotransferase (ALT/SGPT) 50 U/L (12-78) Alkaline Phosphatase 119 U/L (46-116) H Troponin I 0.268 ng/mL (0.000-0.056) Total Protein 6.8 G/DL (6.4-8.2) Albumin 2.3 G/DL (3.4-5.0) L Globulin 4.5 g/dL Albumin/Globulin Ratio 0.5 (1.0-2.7) L Arterial Blood pH 7.464 (7.350-7.450) Arterial Blood Partial Pressure CO2 39.5 mmHg (35.0-45.0) Arterial Blood Partial Pressure O2 178.6 mmHg (75.0-100.0) H Arterial Blood HCO3 27.7 mmol/L (22.0-26.0) H Arterial Blood Oxygen Saturation 98.7 % (95-100) Arterial Blood Base Excess 3.7 (-2-2) H Ugo Test Positive White Blood Count 9.3 K/UL (4.8-10.8) Red Blood Count 3.22 M/UL (4.70-6.10) L Hemoglobin 10.4 G/DL (14.2-18.0) L Hematocrit 31.5 % (42.0-52.0) L Mean Corpuscular Volume 98 FL (80-99) Mean Corpuscular Hemoglobin 32.2 PG (27.0-31.0) H Mean Corpuscular Hemoglobin Concent 32.9 G/DL (32.0-36.0) Red Cell Distribution Width 18.0 % (11.6-14.8) H Platelet Count 199 K/UL (150-450) Mean Platelet Volume 7.0 FL (6.5-10.1) Neutrophils (%) (Auto) 71.7 % (45.0-75.0) Lymphocytes (%) (Auto) 7.6 % (20.0-45.0) L Monocytes (%) (Auto) 17.1 % (1.0-10.0) H Eosinophils (%) (Auto) 2.6 % (0.0-3.0) Basophils (%) (Auto) 1.0 % (0.0-2.0) Uric Acid 7.6 MG/DL (2.6-7.2) H Pro-B-Type Natriuretic Peptide 73767 pg/mL (0-125) H Microbiology Date/Time Source Procedure Growth Status 08/20/18 22:00 Stool Clostridium difficile Toxin Assay - Final Complete Height (Feet): 5 Height (Inches): 8.00 Weight (Pounds): 127 Medications Current Medications Medications (Trade) Dose Ordered Sig/Kris Route PRN Reason Start Time Stop Time Status Last Admin Dose Admin Acetaminophen (Tylenol) 650 mg Q4H PRN ORAL pain and Temp of 100 F 08/20/18 16:04 09/11/18 16:03 08/21/18 03:58 Albuterol/ Ipratropium (Albuterol/ Ipratropium) 3 ml Q4H PRN HHN sob 08/20/18 16:04 08/22/18 16:03 Amoxicillin/ Clavulanate Potassium (Augmentin) 500 mg DAILY ORAL 08/21/18 11:00 08/28/18 10:59 08/21/18 10:40 Amoxicillin/ Clavulanate Potassium (Augmentin) 500 mg POSTHD ORAL 08/22/18 09:00 08/22/18 21:00 Amoxicillin/ Clavulanate Potassium (Augmentin) 500 mg RX-PRE DIALYSIS ORAL 08/22/18 06:00 08/22/18 18:00 Chlorhexidine Gluconate (Anni-Hex 2%) 1 applic DAILY@2000 TOPIC 08/20/18 20:00 09/17/18 19:59 08/20/18 21:22 Diphenhydramine HCl (Benadryl) 50 mg HSPRN PRN ORAL Insomnia 08/20/18 22:45 09/19/18 22:44 08/20/18 23:33 Docusate Sodium (Colace) 100 mg THREE TIMES A DAY ORAL 08/21/18 13:00 09/11/18 12:59 08/21/18 18:06 Epoetin Issa (Procrit (for ESRD on dialysis)) 10,000 units MON-WED-FRI SUBQ 08/21/18 21:00 09/11/18 20:59 Hydralazine HCl (Apresoline) 10 mg Q4H PRN IV bp > 160 syst when not agitate 08/20/18 16:16 09/16/18 16:15 Hydralazine HCl (Apresoline) 25 mg Q8HR ORAL 08/20/18 22:00 09/11/18 13:59 08/21/18 05:39 Metoprolol Tartrate (Lopressor) 50 mg Q12HR ORAL 08/20/18 21:00 09/19/18 08:59 08/20/18 21:32 Ondansetron HCl (Zofran) 4 mg Q6H PRN IVP Nausea & Vomiting 08/20/18 17:00 09/11/18 16:59 Pantoprazole (Protonix) 40 mg ACBREAKFAST ORAL 08/21/18 11:00 09/20/18 10:59 08/21/18 10:40 Vancomycin HCl (Vanco rx to dose) 1 ea DAILY PRN MISC Per rx protocol 08/21/18 09:00 09/14/18 17:29 Assessment/Plan Problem List: (1) MDD (major depressive disorder) ICD Codes: F32.9 - Major depressive disorder, single episode, unspecified SNOMED: 937492208 (2) CVA (cerebral infarction) ICD Codes: I63.9 - Cerebral infarction SNOMED: 362095570 Status: stable Assessment/Plan remeron ativan prn provided ro/Izzy Hurt MD Aug 21, 2018 18:41
[2018-08-21 20:00] VITALS: BP 175/81
[2018-08-21] MEDS ORDERED: Epogen (for ESRD on dialysis) SUBQ SCH (21:00)
[2018-08-22] VITALS: BP 120/81
[2018-08-22 04:00] VITALS: BP 164/69
[2018-08-22] MEDS: HydrALAZINE 25mg tab ORAL SCH ×2 (06:07→13:08)
[2018-08-22 08:00] VITALS: BP 111/50
[2018-08-22] MEDS: Docusate 100mg cap ORAL SCH ×2 (09:00→13:08)
[2018-08-22] MEDS: Metoprolol Tartrate 50mg tab ORAL SCH (09:00)
--- NOTE | 2018-08-22 11:10 | Pulmonology Progress Note ---
Assessment/Plan Problems: (1) Acute respiratory failure (2) Aspiration pneumonia (3) COPD (chronic obstructive pulmonary disease) (4) Interstitial lung disease (5) Non-compliance with treatment (6) Hypertension (7) ESRD (end stage renal disease) on dialysis (8) Debility Assessment/Plan improving, WBC wnl taper oxygen antitussives blood cultures are negative PO abx, Augmentin HD by nephrology sliding scale diabetic diet titrate fio2 to sat of 92% dc planning Subjective ROS Limited/Unobtainable: No Interval Events: c/o headache, SOB less, on nasal cannula Allergies: Coded Allergies: BANANA (Verified Allergy, Severe, 08/12/18) GIL (Verified Allergy, Severe, 08/12/18) CARROT (Verified Allergy, Severe, 08/12/18) Dairy (Verified Allergy, Severe, 08/12/18) GRAPE (Verified Allergy, Severe, 08/12/18) Pork (Verified Allergy, Severe, 08/12/18) Potato (Verified Allergy, Severe, 08/12/18) Objective Last 24 Hour Vital Signs Date Time Temp Pulse Resp B/P (MAP) Pulse Ox O2 Delivery O2 Flow Rate FiO2 08/22/18 09:44 Venturi Mask 5.0 Nasal Cannula 08/22/18 09:00 79 111/50 08/22/18 09:00 Venturi Mask 5.0 Nasal Cannula 08/22/18 08:02 5.0 08/22/18 08:00 97.4 79 18 111/50 (70) 100 08/22/18 08:00 76 08/22/18 07:32 Nasal Cannula 5.0 08/22/18 06:07 142/56 08/22/18 04:00 72 08/22/18 04:00 5.0 08/22/18 04:00 97.5 70 18 164/69 (100) 100 08/22/18 00:00 78 08/22/18 00:00 98.4 67 18 120/81 (94) 100 08/21/18 21:16 175/81 08/21/18 21:14 90 175/81 08/21/18 21:00 Venturi Mask 5.0 Nasal Cannula 08/21/18 20:00 5.0 08/21/18 20:00 96.5 90 22 175/81 (112) 100 08/21/18 20:00 90 08/21/18 19:26 82 20 Nasal Cannula 4.0 36 08/21/18 19:26 Nasal Cannula 4.0 36 08/21/18 19:25 98 Nasal Cannula 4.0 36 08/21/18 16:00 5.0 08/21/18 16:00 98.5 85 20 118/74 (89) 99 08/21/18 16:00 84 08/21/18 13:18 123/51 08/21/18 12:00 97.5 82 20 117/49 (71) 100 97.5 08/21/18 12:00 76 08/21/18 12:00 5.0 Intake and Output 08/21/18 08/22/18 19:00 07:00 Intake Total 600 ml 240 ml Balance 600 ml 240 ml Intake Oral 600 ml 240 ml # Voids 1 # Bowel Movements 1 2 General Appearance: WD/WN HEENT: normocephalic, atraumatic Respiratory/Chest: chest wall non-tender, lungs clear Cardiovascular: normal peripheral pulses, normal rate Abdomen: normal bowel sounds, soft, non tender Genitourinary: normal external genitalia Extremities: no clubbing Skin: no rash Neurologic/Psychiatric: 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 II-XII grossly normal, no motor/sensory deficits Microbiology Date/Time Source Procedure Growth Status 08/20/18 22:00 Stool Clostridium difficile Toxin Assay - Final Complete Current Medications Medications (Trade) Dose Ordered Sig/Kris Route PRN Reason Start Time Stop Time Status Last Admin Dose Admin Acetaminophen (Tylenol) 650 mg Q4H PRN ORAL pain and Temp of 100 F 08/20/18 16:04 09/11/18 16:03 08/21/18 03:58 Albuterol/ Ipratropium (Albuterol/ Ipratropium) 3 ml Q4H PRN HHN sob 08/20/18 16:04 08/22/18 16:03 Amoxicillin/ Clavulanate Potassium (Augmentin) 500 mg DAILY ORAL 08/21/18 11:00 08/28/18 10:59 08/22/18 07:25 Amoxicillin/ Clavulanate Potassium (Augmentin) 500 mg POSTHD ORAL 08/22/18 09:00 08/22/18 21:00 08/22/18 10:39 Amoxicillin/ Clavulanate Potassium (Augmentin) 500 mg RX-PRE DIALYSIS ORAL 08/22/18 06:00 08/22/18 18:00 Diphenhydramine HCl (Benadryl) 50 mg HSPRN PRN ORAL Insomnia 08/20/18 22:45 09/19/18 22:44 08/20/18 23:33 Docusate Sodium (Colace) 100 mg THREE TIMES A DAY ORAL 08/21/18 13:00 09/11/18 12:59 08/21/18 18:06 Epoetin Issa (Procrit (for ESRD on dialysis)) 10,000 units SUN-SUN-SUN SUBQ 08/21/18 21:00 09/11/18 20:59 08/21/18 21:17 Hydralazine HCl (Apresoline) 10 mg Q4H PRN IV bp > 160 syst when not agitate 08/20/18 16:16 09/16/18 16:15 Hydralazine HCl (Apresoline) 25 mg Q8HR ORAL 08/20/18 22:00 09/11/18 13:59 08/22/18 06:07 Metoprolol Tartrate (Lopressor) 50 mg Q12HR ORAL 08/20/18 21:00 09/19/18 08:59 08/21/18 21:14 Ondansetron HCl (Zofran) 4 mg Q6H PRN IVP Nausea & Vomiting 08/20/18 17:00 09/11/18 16:59 Pantoprazole (Protonix) 40 mg ACBREAKFAST ORAL 08/21/18 11:00 09/20/18 10:59 08/22/18 06:06 Vancomycin HCl (Vanco rx to dose) 1 ea DAILY PRN MISC Per rx protocol 08/21/18 09:00 09/14/18 17:29 Darius Watson MD Aug 22, 2018 11:10
--- NOTE | 2018-08-22 11:52 | Psych Consult Progress Note ---
Psych Consult Progress Note Consult 08/22/18 the pt is calm stated that he has anxiety. family in room. sleep adequate compliant. Vital Signs Last 24 Hour Vital Signs Date Time Temp Pulse Resp B/P (MAP) Pulse Ox O2 Delivery O2 Flow Rate FiO2 08/22/18 09:44 Venturi Mask 5.0 Nasal Cannula 08/22/18 09:00 79 111/50 08/22/18 09:00 Venturi Mask 5.0 Nasal Cannula 08/22/18 08:02 5.0 08/22/18 08:00 97.4 79 18 111/50 (70) 100 08/22/18 08:00 76 08/22/18 07:32 Nasal Cannula 5.0 08/22/18 06:07 142/56 08/22/18 04:00 72 08/22/18 04:00 5.0 08/22/18 04:00 97.5 70 18 164/69 (100) 100 08/22/18 00:00 78 08/22/18 00:00 98.4 67 18 120/81 (94) 100 08/21/18 21:16 175/81 08/21/18 21:14 90 175/81 08/21/18 21:00 Venturi Mask 5.0 Nasal Cannula 08/21/18 20:00 5.0 08/21/18 20:00 96.5 90 22 175/81 (112) 100 08/21/18 20:00 90 08/21/18 19:26 82 20 Nasal Cannula 4.0 36 08/21/18 19:26 Nasal Cannula 4.0 36 08/21/18 19:25 98 Nasal Cannula 4.0 36 08/21/18 16:00 5.0 08/21/18 16:00 98.5 85 20 118/74 (89) 99 08/21/18 16:00 84 08/21/18 13:18 123/51 08/21/18 12:00 97.5 82 20 117/49 (71) 100 97.5 08/21/18 12:00 76 08/21/18 12:00 5.0 Medications Current Medications Medications (Trade) Dose Ordered Sig/Kris Route PRN Reason Start Time Stop Time Status Last Admin Dose Admin Acetaminophen (Tylenol) 650 mg Q4H PRN ORAL pain and Temp of 100 F 08/20/18 16:04 09/11/18 16:03 08/21/18 03:58 Albuterol/ Ipratropium (Albuterol/ Ipratropium) 3 ml Q4H PRN HHN sob 08/20/18 16:04 08/22/18 16:03 Amoxicillin/ Clavulanate Potassium (Augmentin) 500 mg DAILY ORAL 08/21/18 11:00 08/28/18 10:59 08/22/18 07:25 Amoxicillin/ Clavulanate Potassium (Augmentin) 500 mg POSTHD ORAL 08/22/18 09:00 08/22/18 21:00 08/22/18 10:39 Amoxicillin/ Clavulanate Potassium (Augmentin) 500 mg RX-PRE DIALYSIS ORAL 08/22/18 06:00 08/22/18 18:00 Diphenhydramine HCl (Benadryl) 50 mg HSPRN PRN ORAL Insomnia 08/20/18 22:45 09/19/18 22:44 08/20/18 23:33 Docusate Sodium (Colace) 100 mg THREE TIMES A DAY ORAL 08/21/18 13:00 09/11/18 12:59 08/21/18 18:06 Epoetin Issa (Procrit (for ESRD on dialysis)) 10,000 units SUN-SUN-SUN SUBQ 08/21/18 21:00 09/11/18 20:59 08/21/18 21:17 Hydralazine HCl (Apresoline) 10 mg Q4H PRN IV bp > 160 syst when not agitate 08/20/18 16:16 09/16/18 16:15 Hydralazine HCl (Apresoline) 25 mg Q8HR ORAL 08/20/18 22:00 09/11/18 13:59 08/22/18 06:07 Metoprolol Tartrate (Lopressor) 50 mg Q12HR ORAL 08/20/18 21:00 09/19/18 08:59 08/21/18 21:14 Ondansetron HCl (Zofran) 4 mg Q6H PRN IVP Nausea & Vomiting 08/20/18 17:00 09/11/18 16:59 Pantoprazole (Protonix) 40 mg ACBREAKFAST ORAL 08/21/18 11:00 09/20/18 10:59 08/22/18 06:06 Vancomycin HCl (Vanco rx to dose) 1 ea DAILY PRN MISC Per rx protocol 08/21/18 09:00 09/14/18 17:29 Problems: (1) MDD (major depressive disorder) Assessment & Plan: (1) MDD (major depressive disorder) ICD Codes: F32.9 - Major depressive disorder, single episode, unspecified SNOMED: 867127006 (2) CVA (cerebral infarction) ICD Codes: I63.9 - Cerebral infarction SNOMED: 030703926 Status: stable Assessment/Plan remeron ativan prn provided ro/st (2) CVA (cerebral infarction) Status: Acute Izzy Rosales MD Aug 22, 2018 11:52
--- NOTE | 2018-08-22 11:53 | General Surgery Progress Note ---
General Surgery-Progress Note Subjective Procedure Performed right internal jugular central venous catheter insertion Symptoms: improved, pain absent, tolerating diet, passing flatus Additional Comments improving. leukocytosis resolved. Objective Last 24 Hour Vital Signs Date Time Temp Pulse Resp B/P (MAP) Pulse Ox O2 Delivery O2 Flow Rate FiO2 08/22/18 09:44 Venturi Mask 5.0 Nasal Cannula 08/22/18 09:00 79 111/50 08/22/18 09:00 Venturi Mask 5.0 Nasal Cannula 08/22/18 08:02 5.0 08/22/18 08:00 97.4 79 18 111/50 (70) 100 08/22/18 08:00 76 08/22/18 07:32 Nasal Cannula 5.0 08/22/18 06:07 142/56 08/22/18 04:00 72 08/22/18 04:00 5.0 08/22/18 04:00 97.5 70 18 164/69 (100) 100 08/22/18 00:00 78 08/22/18 00:00 98.4 67 18 120/81 (94) 100 08/21/18 21:16 175/81 08/21/18 21:14 90 175/81 08/21/18 21:00 Venturi Mask 5.0 Nasal Cannula 08/21/18 20:00 5.0 08/21/18 20:00 96.5 90 22 175/81 (112) 100 08/21/18 20:00 90 08/21/18 19:26 82 20 Nasal Cannula 4.0 36 08/21/18 19:26 Nasal Cannula 4.0 36 08/21/18 19:25 98 Nasal Cannula 4.0 36 08/21/18 16:00 5.0 08/21/18 16:00 98.5 85 20 118/74 (89) 99 08/21/18 16:00 84 08/21/18 13:18 123/51 08/21/18 12:00 97.5 82 20 117/49 (71) 100 97.5 08/21/18 12:00 76 08/21/18 12:00 5.0 I&O Intake and Output 08/21/18 08/22/18 19:00 07:00 Intake Total 600 ml 240 ml Balance 600 ml 240 ml Intake Oral 600 ml 240 ml # Voids 1 # Bowel Movements 1 2 Dressing: saturated Wound: clean Drains: none Cardiovascular: RSR Respiratory: clear Abdomen: soft, flat, non-tender, present bowel sounds Extremities: no tenderness, no cyanosis Plan Problems: (1) Acute exacerbation of CHF (congestive heart failure) (2) Acute respiratory failure Assessment & Plan: overall improving dressing clean and dry no bleeding since labs stable and improving d/c planning okay to hold off on placing new line transition to oral meds will follow thank you Ghanshyam Quintanilla Aug 22, 2018 11:53
[2018-08-22 12:00] VITALS: BP 133/78
--- NOTE | 2018-08-22 12:41 | General Progress Note ---
Assessment/Plan Problem List: (1) Respiratory arrest ICD Codes: R09.2 - Respiratory arrest SNOMED: 84358912 (2) Aspiration pneumonia ICD Codes: J69.0 - Pneumonitis due to inhalation of food and vomit SNOMED: 281580158 (3) Hemoptysis ICD Codes: R04.2 - Hemoptysis SNOMED: 02587743 (4) ESRD (end stage renal disease) on dialysis ICD Codes: N18.6 - End stage renal failure on dialysis; Z99.2 - Dependence on renal dialysis SNOMED: 211875751 (5) Hypertension ICD Codes: I10 - Hypertension SNOMED: 89553614 (6) Cardiac ischemia ICD Codes: I25.9 - Chronic ischemic heart disease, unspecified SNOMED: 699199541 Status: doing well Assessment/Plan change meds to po- dialysed today DC to ECF self extubated 08/17 pulm support diacussed with 2 daughters at bed side 08/19 transfuse 2 units- 08/16 HD 08/16 again 08/18 and 08/20 minimal Sedation as needed discussed with RN K supplement as needed to tele Subjective ROS Limited/Unobtainable: No Constitutional: Reports: malaise Allergies: Coded Allergies: BANANA (Verified Allergy, Severe, 08/12/18) GIL (Verified Allergy, Severe, 08/12/18) CARROT (Verified Allergy, Severe, 08/12/18) Dairy (Verified Allergy, Severe, 08/12/18) GRAPE (Verified Allergy, Severe, 08/12/18) Pork (Verified Allergy, Severe, 08/12/18) Potato (Verified Allergy, Severe, 08/12/18) Objective Last 24 Hour Vital Signs Date Time Temp Pulse Resp B/P (MAP) Pulse Ox O2 Delivery O2 Flow Rate FiO2 08/22/18 09:44 Nasal Cannula 2.0 Nasal Cannula 5.0 08/22/18 09:00 79 111/50 08/22/18 09:00 Venturi Mask 5.0 Nasal Cannula 08/22/18 08:02 5.0 08/22/18 08:00 97.4 79 18 111/50 (70) 100 08/22/18 08:00 76 08/22/18 07:32 Nasal Cannula 5.0 08/22/18 06:07 142/56 08/22/18 04:00 72 08/22/18 04:00 5.0 08/22/18 04:00 97.5 70 18 164/69 (100) 100 08/22/18 00:00 78 08/22/18 00:00 98.4 67 18 120/81 (94) 100 08/21/18 21:16 175/81 08/21/18 21:14 90 175/81 08/21/18 21:00 Venturi Mask 5.0 Nasal Cannula 08/21/18 20:00 5.0 08/21/18 20:00 96.5 90 22 175/81 (112) 100 08/21/18 20:00 90 08/21/18 19:26 82 20 Nasal Cannula 4.0 36 08/21/18 19:26 Nasal Cannula 4.0 36 08/21/18 19:25 98 Nasal Cannula 4.0 36 08/21/18 16:00 5.0 08/21/18 16:00 98.5 85 20 118/74 (89) 99 08/21/18 16:00 84 08/21/18 13:18 123/51 Intake and Output 08/21/18 08/22/18 19:00 07:00 Intake Total 600 ml 240 ml Balance 600 ml 240 ml Intake Oral 600 ml 240 ml # Voids 1 # Bowel Movements 1 2 Current Medications Medications (Trade) Dose Ordered Sig/Kris Route PRN Reason Start Time Stop Time Status Last Admin Dose Admin Acetaminophen (Tylenol) 650 mg Q4H PRN ORAL pain and Temp of 100 F 08/20/18 16:04 09/11/18 16:03 08/21/18 03:58 Albuterol/ Ipratropium (Albuterol/ Ipratropium) 3 ml Q4H PRN HHN sob 08/20/18 16:04 08/22/18 16:03 Amoxicillin/ Clavulanate Potassium (Augmentin) 500 mg DAILY ORAL 08/21/18 11:00 08/28/18 10:59 08/22/18 07:25 Amoxicillin/ Clavulanate Potassium (Augmentin) 500 mg POSTHD ORAL 08/22/18 09:00 08/22/18 21:00 08/22/18 10:39 Amoxicillin/ Clavulanate Potassium (Augmentin) 500 mg RX-PRE DIALYSIS ORAL 08/22/18 06:00 08/22/18 18:00 Diphenhydramine HCl (Benadryl) 50 mg HSPRN PRN ORAL Insomnia 08/20/18 22:45 09/19/18 22:44 08/20/18 23:33 Docusate Sodium (Colace) 100 mg THREE TIMES A DAY ORAL 08/21/18 13:00 09/11/18 12:59 08/21/18 18:06 Epoetin Issa (Procrit (for ESRD on dialysis)) 10,000 units SUN-SUN-SUN SUBQ 08/21/18 21:00 09/11/18 20:59 08/21/18 21:17 Hydralazine HCl (Apresoline) 10 mg Q4H PRN IV bp > 160 syst when not agitate 08/20/18 16:16 09/16/18 16:15 Hydralazine HCl (Apresoline) 25 mg Q8HR ORAL 08/20/18 22:00 09/11/18 13:59 08/22/18 06:07 Metoprolol Tartrate (Lopressor) 50 mg Q12HR ORAL 08/20/18 21:00 09/19/18 08:59 08/21/18 21:14 Ondansetron HCl (Zofran) 4 mg Q6H PRN IVP Nausea & Vomiting 08/20/18 17:00 09/11/18 16:59 Pantoprazole (Protonix) 40 mg ACBREAKFAST ORAL 08/21/18 11:00 09/20/18 10:59 08/22/18 06:06 Vancomycin HCl (Vanco rx to dose) 1 ea DAILY PRN MISC Per rx protocol 08/21/18 09:00 09/14/18 17:29 Height (Feet): 5 Height (Inches): 8.00 Weight (Pounds): 124 General Appearance: other - puls Ox 100% on 2 liters Cardiovascular: normal rate Respiratory/Chest: decreased breath sounds Abdomen: soft Objective on bipapa post self extubation Ady Gómez MD Aug 22, 2018 12:41
[2018-08-22] MEDS ORDERED: AUGMENTIN 500-1 EACH ORAL (12:50)
[2018-08-22] MEDS ORDERED: METOPROLOL TART50 MG ORAL (12:50)
[2018-08-22] MEDS ORDERED: PROTONIX40 MG ORAL (12:50)
[2018-08-22] MEDS ORDERED: ELIQUIS2.5 MG PO (12:50)
[2018-08-22] MEDS ORDERED: DUONEB 0.5-3(2.53 ML HHN (12:50)
--- NOTE | 2018-08-22 12:52 | Discharge Instructions ---
Discharge Instructions Discharge Instructions Follow up with: Dr Jade at [facility] Diet: renal (80g protein, 2GM) Activity: other - PT OT Special Instructions to [facility] dialysis [facility] Hustonu Sat For Congestive Heart Failure Reminder Report to your physician any weight gain of 5 pounds or more in one week. Ady Gómez MD Aug 22, 2018 12:52
[2018-08-22] MEDS ORDERED: Eliquis 2.5mg tablet ORAL SCH (13:00)
[2018-08-22 13:08] VITALS: BP 133/78
--- NOTE | 2018-08-22 16:20 | Infectious Diseases Prog Note ---
Assessment/Plan Problems: (1) HCAP (healthcare-associated pneumonia) Assessment & Plan: now on high flow oxygen , continue Augmentin empirically for 10 days total , repeated sputum culture showed normal respiratory kodak , aspiration precaution and keep HOB > 30 degree . EOT 08/22/18 (2) Acute respiratory failure Assessment & Plan: due to the above, S/P code , extubated on high flow oxygen via mask , continue inhalers , monitor CXR , pulmonary is following (3) Coagulopathy Assessment & Plan: resolved , back on anticoagulation , monitor INR, cardiology is following (4) Hemoptysis Assessment & Plan: due to the above , improving , monitor H/H . (5) ESRD (end stage renal disease) on dialysis Assessment & Plan: on HD , renal is following (6) Cardiac ischemia Assessment & Plan: with elevated troponin , now off anticoagulation, cardiology is following Subjective Constitutional: Reports: no symptoms HEENT: Reports: no symptoms Respiratory: Reports: no symptoms Breasts: Reports: no symptoms Cardiovascular: Reports: no symptoms Gastrointestinal/Abdominal: Reports: no symptoms Genitourinary: Reports: no symptoms Neurologic: Reports: no symptoms Psychiatric: Reports: no symptoms Skin: Reports: no symptoms Endocrine: Reports: no symptoms Hematologic: Reports: no symptoms Allergies: Coded Allergies: BANANA (Verified Allergy, Severe, 08/12/18) GIL (Verified Allergy, Severe, 08/12/18) CARROT (Verified Allergy, Severe, 08/12/18) Dairy (Verified Allergy, Severe, 08/12/18) GRAPE (Verified Allergy, Severe, 08/12/18) Pork (Verified Allergy, Severe, 08/12/18) Potato (Verified Allergy, Severe, 08/12/18) Subjective he was extubated and started on BIPAP , comfortable in ICU , follows commands, NAD Objective Vital Signs Last 24 Hour Vital Signs Date Time Temp Pulse Resp B/P (MAP) Pulse Ox O2 Delivery O2 Flow Rate FiO2 08/22/18 13:08 133/78 08/22/18 12:00 97.4 88 18 133/78 (96) 96 08/22/18 12:00 85 08/22/18 09:44 Nasal Cannula 2.0 Nasal Cannula 5.0 08/22/18 09:40 Nasal Cannula 4.0 36 08/22/18 09:40 97 Nasal Cannula 4.0 36 08/22/18 09:00 79 111/50 10/25/18 09:00 Venturi Mask 5.0 Nasal Cannula 08/22/18 08:02 5.0 08/22/18 08:00 97.4 79 18 111/50 (70) 100 08/22/18 08:00 76 08/22/18 07:32 Nasal Cannula 5.0 08/22/18 06:07 142/56 08/22/18 04:00 72 08/22/18 04:00 5.0 08/22/18 04:00 97.5 70 18 164/69 (100) 100 08/22/18 00:00 78 08/22/18 00:00 98.4 67 18 120/81 (94) 100 08/21/18 21:16 175/81 08/21/18 21:14 90 175/81 08/21/18 21:00 Venturi Mask 5.0 Nasal Cannula 08/21/18 20:00 5.0 08/21/18 20:00 96.5 90 22 175/81 (112) 100 08/21/18 20:00 90 08/21/18 19:26 82 20 Nasal Cannula 4.0 36 08/21/18 19:26 Nasal Cannula 4.0 36 08/21/18 19:25 98 Nasal Cannula 4.0 36 Height (Feet): 5 Height (Inches): 8.00 Weight (Pounds): 124 General Appearance: WD/WN, no acute distress HEENT: normocephalic, atraumatic, anicteric, mucous membranes moist, PERRL Respiratory/Chest: chest wall non-tender, lungs clear, normal breath sounds, no respiratory distress, no accessory muscle use Cardiovascular: normal peripheral pulses, normal rate, regular rhythm, no gallop/murmur, no JVD Abdomen: normal bowel sounds, soft, non tender, no organomegaly, non distended , no mass, no scars Genitourinary: normal external genitalia Extremities: no cyanosis, no clubbing Skin: no rash, no lesions, no ulcers Neurologic/Psychiatric: alert, oriented x 3, responsive Lymphatic: no neck adenopathy, no groin adenopathy Microbiology Date/Time Source Procedure Growth Status 08/20/18 22:00 Stool Clostridium difficile Toxin Assay - Final Complete Current Medications Medications (Trade) Dose Ordered Sig/Kris Route PRN Reason Start Time Stop Time Status Last Admin Dose Admin Acetaminophen (Tylenol) 650 mg Q4H PRN ORAL pain and Temp of 100 F 08/20/18 16:04 09/11/18 16:03 08/21/18 03:58 Amoxicillin/ Clavulanate Potassium (Augmentin) 500 mg DAILY ORAL 08/21/18 11:00 08/28/18 10:59 08/22/18 07:25 Amoxicillin/ Clavulanate Potassium (Augmentin) 500 mg POSTHD ORAL 08/22/18 09:00 08/22/18 21:00 08/22/18 10:39 Amoxicillin/ Clavulanate Potassium (Augmentin) 500 mg RX-PRE DIALYSIS ORAL 08/22/18 06:00 08/22/18 18:00 Apixaban (Eliquis) 2.5 mg Q12H ORAL 08/22/18 13:00 09/21/18 12:59 08/22/18 13:08 Diphenhydramine HCl (Benadryl) 50 mg HSPRN PRN ORAL Insomnia 08/20/18 22:45 09/19/18 22:44 08/20/18 23:33 Docusate Sodium (Colace) 100 mg THREE TIMES A DAY ORAL 08/21/18 13:00 09/11/18 12:59 08/22/18 13:08 Epoetin Issa (Procrit (for ESRD on dialysis)) 10,000 units SUN-SUN-SUN SUBQ 08/21/18 21:00 09/11/18 20:59 08/21/18 21:17 Hydralazine HCl (Apresoline) 25 mg Q8HR ORAL 08/20/18 22:00 09/11/18 13:59 08/22/18 13:08 Metoprolol Tartrate (Lopressor) 50 mg Q12HR ORAL 08/20/18 21:00 09/19/18 08:59 08/21/18 21:14 Pantoprazole (Protonix) 40 mg ACBREAKFAST ORAL 08/21/18 11:00 09/20/18 10:59 08/22/18 06:06 Donte Null M.D. Aug 22, 2018 16:20
--- NOTE | 2018-08-23 14:10 | Discharge Summary ---
Discharge Summary Discharge Summary _ DATE OF ADMISSION: 08/12/2018 DATE OF DISCHARGE: 08/22/2018 CONSULTANTS: Dr. Donte Thakkar BRIEF HOSPITAL COURSE: Patient is an 83-year-old male, with end-stage renal disease, presented to emergency room for evaluation of cough. He had fever, chills, bloody sputum and shortness of breath. He had difficulty breathing especially at night. On evaluation at ED, patient was hypoxemic, O2 saturation was 88% on room air. Blood work did not show any leukocytoses, hemoglobin 10, creatinine 6, INR was elevated to 6.7. Chest x-ray done showed interstitial pulmonary edema, possible pneumonia in the left upper lobe. Influenza screen was negative. He was then admitted to [facility] for evaluation of pneumonia. He was closely followed by nurse ortho. He was given respiratory treatment. He was placed on BiPAP when necessary. He was started empirically on Zosyn and vancomycin pending culture results. INR increased. He was given fresh frozen plasma and vitamin K. He was given total of 4 units FFP. Coagulopathy eventually corrected. Echocardiogram done showed large circumferential pericardial effusion suggestive of early tamponade. Autism Specialist was consulted. Echocardiogram was reviewed. In comparison with prior echocardiogram in November 2016, pericardial effusion and RA collapse and increased apical lateral echo were not new, and these findings were present on prior echocardiogram, however, volume of effusion has increased. There was no evidence of pericardial tamponade clinically on examination. Pericardiocentesis may be necessary at some point in the future, although not necessary at this time considering the degree of coagulopathy the patient has. He continued to have respiratory distress. On 08/15/2018, patient was scheduled for hemodialysis, however, patient refused. He became bradycardic and then unresponsive. CODE BLUE was called. Patient was orally intubated and was transferred to ICU. Patient had several attempts on establishing peripheral access. Prior attempts at placing EJ access was unsuccessful. Dr. Ghanshyam Quintanilla was consulted and a central line was inserted through the right internal jugular vein using ultrasound guidance. NGT was inserted for patient medication. There was an increase in troponin levels. He was given aspirin for non-STEMI. EKG showed T-wave inversion in leads V4 to V6. Discussion was made with patient 's son, family does not want any angiograms/cardiac cath. There was a drop in hemoglobin. He was given 2 units packed RBC blood transfusion. Unable to be given antiplatelets due to anemia. He was continued on inpatient hemodialysis. On 08/17/2018, patient self extubated and removed his NGT. He was given O2 support. He was initially placed on BiPAP and was transitioned to Venturi mask. Patient was agitated. He was placed on on soft restraints. Blood pressure was elevated. Antihypertensives were titrated. He had depression and was given Remeron. Blood culture did not isolate any growth. Sputum culture with normal upper respiratory kodak. C. difficile was negative. Antibiotic was transitioned to Augmentin empirically. Troponin levels eventually down trended. He was given PT/OT. Restraints were discontinued. He was eventually started on Eliquis 2.5 mg twice a day. He was eventually cleared for discharge to SNF. FINAL DIAGNOSES: Status post cardiorespiratory arrest Acute respiratory failure requiring intubation status post extubation Aspiration pneumonia End-stage renal disease on hemodialysis Non-ST elevated ID Drop in hemoglobin requiring blood transfusion Coagulopathy COPD Hypertension Debility Interstitial lung disease Hemoptysis Pericardial effusion, increased in size since 2017 Right atrial collapse, not changed since 2017 Apicolateral increased echo, not changed since 2017 Mild segmental wall motion abnormality Paroxysmal atrial fibrillation Major depressive disorder DISPOSITION: Patient was discharged to [facility] rehabilitation DISCHARGE MEDICATIONS: Refer to Discharge Medication List. I have been assigned to dictate discharge summary on this account, and I was not involved in the patient's management. Stephy Houston NP Aug 23, 2018 14:10
== END 2018-08-22 15:51 | DRG 208 ==
LOC: EMR 08:39 → 2W 11:06 → EDBEDREQ 11:53 → 2W 12:34 → ICU 08-15 16:35 → 2E 08-20 16:15
PROC: 5A1D70Z Performance of Urinary Filtration, Intermittent, Less than 6 Hours Per Day (ICD-10-PCS; principal; 2018-08-12)
PROC: 30233N1 Transfusion of Nonautologous Red Blood Cells into Peripheral Vein, Percutaneous Approach (ICD-10-PCS; 2018-08-13)
PROC: 0BH17EZ Insertion of Endotracheal Airway into Trachea, Via Natural or Artificial Opening (ICD-10-PCS; 2018-08-15)
PROC: 5A1945Z Respiratory Ventilation, 24-96 Consecutive Hours (ICD-10-PCS; 2018-08-15)
PROC: B543ZZA Ultrasonography of Right Jugular Veins, Guidance (ICD-10-PCS; 2018-08-15)
PROC: 05HM33Z Insertion of Infusion Device into Right Internal Jugular Vein, Percutaneous Approach (ICD-10-PCS; 2018-08-15)
DX: J96.01 Acute respiratory failure with hypoxia (principal); J69.0 Pneumonitis due to inhalation of food and vomit; N18.6 End stage renal disease; I21.4 Non-ST elevation (NSTEMI) myocardial infarction; I46.9 Cardiac arrest, cause unspecified; I13.2 Hypertensive heart and chronic kidney disease with heart failure and with stage 5 chronic kidney disease, or end stage renal disease; R04.2 Hemoptysis; I31.3 Pericardial effusion (noninflammatory); D68.9 Coagulation defect, unspecified; R71.0 Precipitous drop in hematocrit; J84.9 Interstitial pulmonary disease, unspecified; J44.9 Chronic obstructive pulmonary disease, unspecified; E11.22 Type 2 diabetes mellitus with diabetic chronic kidney disease; I50.9 Heart failure, unspecified; Z99.2 Dependence on renal dialysis; Z91.15 Patient's noncompliance with renal dialysis; D63.1 Anemia in chronic kidney disease; I25.2 Old myocardial infarction; I25.10 Atherosclerotic heart disease of native coronary artery without angina pectoris; I48.0 Paroxysmal atrial fibrillation; K21.9 Gastro-esophageal reflux disease without esophagitis; Z86.73 Personal history of transient ischemic attack (TIA), and cerebral infarction without residual deficits; F03.90 Unspecified dementia, unspecified severity, without behavioral disturbance, psychotic disturbance, mood disturbance, and anxiety; F32.9 Major depressive disorder, single episode, unspecified; I27.20 Pulmonary hypertension, unspecified; Z78.1 Physical restraint status
CPT/HCPCS: 36415; 36600; 71045; 74018; 74230; 80048; 80053; 80061; 80202; 82248; 82550; 82607; 82728; 82746; 82803; 82962; 82977; 83036; 83540; 83550; 83735; 83880; 84100; 84443; 84484; 84550; 85007; 85025; 85610; 85730; 86140; 86710; 86850; 86900; 86901; 86920; 86927; 87040; 87070; 87081; 87205; 87324; 92610; 92950; 93005; 93306; 93970; 94002; 94003; 94640; 94660; 94664; 94760; 96365; 99291

== ENCOUNTER 2018-09-05 03:30 | Inpatient (IN) | payer MEDICARE, MEDICAID ==
[~2018-09-05] VITALS: Ht 170.2 cm; Wt 69.4 kg
[2018-09-05 03:30] VITALS: BP 183/65
[~2018-09-05 03:30] MED LIST changes: +ARANESP40 MCG/1 M IV; +AUGMENTIN 500-1 EACH ORAL; +DUONEB 0.5-3(2.53 ML HHN; +ELIQUIS2.5 MG PO; +METOPROLOL TART50 MG ORAL; +OMEGA 3 FISH O1 EAC1 PO; +TRIAMCINOLONE A15 G1 TP; +VENOFER50 MG/2.5 IV; +VITAMIN B COMP1 EAC2 ORAL; +WARFARIN SODIUM1 MG ORAL; +ZEMPLAR2 MCG/1 ML IV
[2018-09-05] MEDS ORDERED: AMBIEN5 MG ORAL (03:46)
--- NOTE | 2018-09-05 03:49 | Emergency Room Report ---
History of Present Illness General Chief Complaint: Dyspnea/Respdistress Source: Medical Record, EMS Present Illness HPI This is an 83 year-old Portuguese male with a history of atrial fibrillation and renal failure hemodialysis. He scheduled for dialysis today. He presents with chief complaint of shortness of breath. Onset today. Per EMS blood pressures very high and he was hypoxic in the mid 80s. Similar symptom in the past. No nausea no vomiting. No fever or chills. History is from the assisted note and last admission. Unable to get anything from patient. Allergies: Coded Allergies: BANANA (Verified Allergy, Severe, 09/05/18) GIL (Verified Allergy, Severe, 09/05/18) CARROT (Verified Allergy, Severe, 09/05/18) Dairy (Verified Allergy, Severe, 09/05/18) GRAPE (Verified Allergy, Severe, 09/05/18) Pork (Verified Allergy, Severe, 09/05/18) Potato (Verified Allergy, Severe, 08/12/18) Patient History Past Medical History: see triage record, old chart reviewed, HTN, CAD, CHF, renal disease, dialysis Past Surgical History: other Pertinent Family History: none Social History: Denies: smoking Immunizations: other Reviewed Nursing Documentation: PMH: Agreed; PSxH: Agreed Nursing Documentation-PMH Past Medical History: No History, Except For Hx Cardiac Problems: Yes Hx Hypertension: Yes Hx Pacemaker: No Hx Asthma: No Hx COPD: Yes Hx Diabetes: No Hx Cancer: No Hx Gastrointestinal Problems: Yes - dysphagia, gout Hx Dialysis: Yes - T, TH, Sat Hx Neurological Problems: Yes Hx Cerebrovascular Accident: Yes Hx Dementia: Yes Hx Seizures: No Review of Systems Respiratory: Reports: shortness of breath All Other Systems: limited - secondary to condition Physical Exam Vital Signs Date Time Temp Pulse Resp B/P (MAP) Pulse Ox O2 Delivery O2 Flow Rate FiO2 09/05/18 03:27 71 18 213/91 100 Room Air blood pressure elevated Sp02 EP Interpretation: abnormal General Appearance: moderate distress, thin, Chronically Ill Head: normocephalic, atraumatic Eyes: bilateral eye PERRL, bilateral eye EOMI ENT: hearing grossly normal, normal pharynx Neck: full range of motion, supple, no meningismus Respiratory: chest non-tender, normal breath sounds, rales Cardiovascular #1: no murmur, irregularly irregular Gastrointestinal: normal bowel sounds, non tender, no mass, no organomegaly, no bruit, non-distended Musculoskeletal: back normal, gait/station normal, normal range of motion Psychiatric: mood/affect normal Skin: warm/dry Procedures Critical Care Time Critical Care Time Critical care is mandated in this patient who presented with respiratory distress secondary to pulmonary edema. Patient require my urgent intervention to attenuate the risks of () which may lead to cardiovascular collapse and . Critical care time is 35 minutes excluding any reportable procedure. Critical care time included evaluation, multiple reevaluation, looking at old charts, interpreting laboratory and diagnostic data, discussing case with patient and family and consultants, and charting. Medical Decision Making Diagnostic Impression: Primary Impression: Acute respiratory failure Qualified Codes: J96.01 - Acute respiratory failure with hypoxia Additional Impressions: CHF exacerbation Qualified Codes: I50.9 - Heart failure, unspecified Atrial fibrillation, controlled ER Course Patient presents with dyspnea secondary to CHF/edema. He will need dialysis today. He is comfortable on oxygen. Patient will be admitted. No evidence of ST elevation RI. No evidence of pneumonia, PE or dissection. I discussed the case with Dr. Perez who is covering for Dr. Jade. I also discussed case with Dr. Gómez for dialysis. EKG Diagnostic Results Rate: normal Rhythm: other - afib ST Segments: other - NSST changes Rhythm Strip Diag. Results Rhythm Strip Time: 03:52 EP Interpretation: yes Rate: 67 Rhythm: no PVC's, no ectopy, other - afib/flutter Chest X-Ray Diagnostic Results Chest X-Ray Diagnostic Results : Chest X-Ray Ordered: Yes # of Views/Limited/Complete: 1 View Indication: Shortness of Breath EP Interpretation: Yes Interpretation: no consolidation, other - cardiomegaly with increasing effusion Impression: Other - CM and chf Electronically Signed by: Joseph Clark MD Last Vital Signs Date Time Temp Pulse Resp B/P (MAP) Pulse Ox O2 Delivery O2 Flow Rate FiO2 09/05/18 03:27 71 18 213/91 100 Room Air Status: improved Disposition: ADMITTED INPATIENT Condition: Serious Joseph Clark MD Sep 05, 2018 03:48
[2018-09-05 04:39] LABS: BASOPHILS % (AUTO) 0.6 % (0.0-2.0); EOSINOPHILS % (AUTO) 0.9 % (0.0-3.0); HEMATOCRIT 31.4 % (42.0-52.0); HEMOGLOBIN 10.3 G/DL (14.2-18.0); LYMPHOCYTES % (AUTO) 12.5 % (20.0-45.0); MEAN CORPUSCULAR VOLUME 100 FL (80-99); MONOCYTES % (AUTO) 11.1 % (1.0-10.0); NEUTROPHILS % (AUTO) 74.9 % (45.0-75.0); PLATELET COUNT 182 K/UL (150-450); RED BLOOD COUNT 3.14 M/UL (4.70-6.10); RED CELL DISTRIBUTION WIDTH 16.3 % (11.6-14.8); WHITE BLOOD COUNT 6.7 K/UL (4.8-10.8)
[2018-09-05 04:48] LABS: INR 1.1 (0.9-1.1)
[2018-09-05 05:11] LABS: ANION GAP 9 mmol/L (5-15); BLOOD UREA NITROGEN 40 mg/dL (7-18); CALCIUM 7.9 MG/DL (8.5-10.1); CARBON DIOXIDE 32 MMOL/L (21-32); CHLORIDE 94 MMOL/L (98-107); CREATININE 4.9 MG/DL (0.55-1.30); POTASSIUM 3.9 MMOL/L (3.5-5.1); SODIUM 135 MMOL/L (136-145)
[2018-09-05 05:12] LABS: APPEARANCE,URINE CLEAR; BILIRUBIN, URINE NEGATIVE (NEGATIVE); COLOR,URINE PALE YELLOW; GLUCOSE, URINE (UA) 1+ (NEGATIVE); KETONES,URINE NEGATIVE (NEGATIVE); LEUKOCYTE ESTERASE ,URINE NEGATIVE (NEGATIVE); NITRITE,URINE NEGATIVE (NEGATIVE); PH,URINE 8 (4.5-8.0); PROTEIN,URINE 3+ (NEGATIVE); UROBILINOGEN,URINE NORMAL MG/DL (0.0-1.0)
[2018-09-05 05:18] LABS: ALANINE AMINOTRANSFERASE 40 U/L (12-78); ALBUMIN 2.5 G/DL (3.4-5.0); ALBUMIN/GLOBULIN RATIO 0.6 (1.0-2.7); ALKALINE PHOSPHATASE 197 U/L (46-116); ASPARTATE AMINO TRANSFERASE 37 U/L (15-37); BILIRUBIN,TOTAL 0.6 MG/DL (0.2-1.0); CKMB 1.2 NG/ML (0.0-3.6); CREATINE KINASE 44 U/L (26-308)
[2018-09-05 08:00] VITALS: BP 170/79
[2018-09-05 08:33] LABS: FERRITIN 1758 NG/ML (8-388); PHOSPHORUS 4.4 MG/DL (2.5-4.9)
[2018-09-05] MEDS: Eliquis 2.5mg tablet ORAL SCH ×2 (08:38→17:56)
[2018-09-05] MEDS: Aspirin EC 81mg tab ORAL SCH (08:38)
[2018-09-05] MEDS ORDERED: Metoprolol Tartrate 50mg tab ORAL SCH (09:00)
--- NOTE | 2018-09-05 09:18 | Diagnostic Imaging Report ---
Indication: Dyspnea Comparison: 08/21/2018 A single view chest radiograph was obtained. Findings: Moderate pulmonary edema demonstrated with mixed interstitial and alveolar densities and cardiomegaly. There are probable pleural effusions as well. IMPRESSION: Worsening congestive heart failure
[2018-09-05 09:53] LABS: % IRON SATURATION 24 % (15-50); IRON 38 ug/dL (50-175); TOTAL IRON BINDING CAPACITY 160 ug/dL (250-450)
--- NOTE | 2018-09-05 09:59 | Consultation ---
Consult Note Consult Note recently discharge to [facility] [place] [facility] [place]- Receives HD e Sun Sat his is an 83 year-old Maori male with a history of atrial fibrillation and renal failure hemodialysis. He scheduled for dialysis today. He presents with chief complaint of shortness of breath. Onset today. Per EMS blood pressures very high and he was hypoxic in the mid 80s. Similar symptom in the past. No nausea no vomiting. No fever or chills. History is from the long term note and last admission. Unable to get anything from patient. Allergies: Coded Allergies: BANANA (Verified Allergy, Severe, 09/05/18) GIL (Verified Allergy, Severe, 09/05/18) CARROT (Verified Allergy, Severe, 09/05/18) Dairy (Verified Allergy, Severe, 09/05/18) GRAPE (Verified Allergy, Severe, 09/05/18) Pork (Verified Allergy, Severe, 09/05/18) Potato (Verified Allergy, Severe, 08/12/18) Past Medical History: No History, Except For Hx Cardiac Problems: Yes Hx Hypertension: Yes Hx COPD: Yes Hx Gastrointestinal Problems: Yes - dysphagia, gout Hx Dialysis: Yes - T, , Sat Hx Neurological Problems: Yes Hx Cerebrovascular Accident: Yes Hx Dementia: Yes examined- discussed with RN Meds reviewed Assessment/Plan Admitting Dx: Acute respiratory failure CHF exacerbation Atrial fibrillation, controlled Others: Hypertension OOC h/o Respiratory Arrest and Pneumonia and Hemoptysis ESRD Cardiac Ischemia Maulti infarct brain disease Pulm HTN Plan; HD Now Adjust BP meds- Optimize cardiac status Per orders Ady Gómez MD Sep 05, 2018 09:59
[2018-09-05] MEDS ORDERED: HydrALAZINE 25mg tab ORAL PRN (10:15)
[2018-09-05 12:00] VITALS: BP 119/43
[2018-09-05] MEDS ORDERED: HydrALAZINE 25mg tab ORAL SCH (14:00)
[2018-09-05] MEDS: HydrALAZINE 25mg tab ORAL SCH ×2 (14:01→21:21)
[2018-09-05 16:00] VITALS: BP 136/53
--- NOTE | 2018-09-05 16:30 | History and Physical Report ---
DATE OF ADMISSION: 09/05/2018 CHIEF COMPLAINT: Respiratory failure, hypoxemia, uncontrolled hypertension, CHF. HISTORY OF PRESENT ILLNESS: The patient is an 83-year-old male. He has a history of end-stage renal disease, hypertension, paroxysmal atrial fibrillation, anemia, COPD, and CHF. [facility] with complaints of acute onset of shortness of breath. According to staff at the retirement, the patient was well until the scheduling representative of admission when he was noted to complain of shortness of breath. He was hypoxic, initially placed on nasal cannula and later on, on a nonrebreather. Because of persistent hypoxemia and respiratory distress, paramedics were called and the patient was transferred to [facility] for further evaluation. On evaluation there, laboratories were significant for a troponin of 0.049, natriuretic peptide level greater than 35,000. Chest x-ray showed pulmonary edema, congestive heart failure, and pleural effusions. The patient is a dialysis patient and is due for dialysis today. There are no reports of any fever or chills. No cough. PAST MEDICAL HISTORY: As above. PAST SURGICAL HISTORY: None. CURRENT MEDICATIONS: Reconciled and reviewed. ALLERGIES: Include banana, beans, carrots, dairy, grape, pork, potato. FAMILY HISTORY: Noncontributory. SOCIAL HISTORY: There is no known history of alcohol or drugs. The patient was previously a smoker. REVIEW OF SYSTEMS: GENERAL: No fever or chills. HEENT: No headaches or visual changes. CARDIOPULMONARY: No chest pain. Positive shortness of breath. GASTROINTESTINAL: No nausea or vomiting. GENITOURINARY: No urgency or frequency. MUSCULOSKELETAL: No joint pain or swelling. NEUROLOGIC: No evidence of seizures. PHYSICAL EXAMINATION: VITAL SIGNS: Temperature 98 degrees, blood pressure 213/91, pulse 71, respirations 18. GENERAL: The patient is well developed, no apparent distress. HEART: Regular rate and rhythm. LUNGS: Significant for bibasilar rales. ABDOMEN: Soft, nontender, and nondistended. EXTREMITIES: Without clubbing, cyanosis, or edema. LABORATORY AND DIAGNOSTIC DATA: Chest x-ray showed pulmonary edema and CHF. UA was negative. White count 6, hemoglobin 10, platelet count of 182. Sodium 135, potassium 3.9, chloride 94, bicarb 32, BUN 40, creatinine 4.9. Natriuretic peptide level was greater than 35,000. ASSESSMENT: This is an elderly male with end-stage renal disease, hypertension, CHF, COPD, atrial fibrillation admitted with complaints of shortness of breath secondary to pulmonary edema, hypertensive emergency, and CHF exacerbation. PLAN: 1. Titrate antihypertensive regimen. 2. Renal and Cardiology consultations. 3. Resume the patient's hemodialysis. 4. Monitor chest x-ray. 5. DVT and stress ulcer prophylaxis. Bulmaro Perez M.D. DR: Leodan JOB#: [id number] CC:
[2018-09-05 20:00] VITALS: BP_SYST 134; BP_SYST 149; BP_DIAS 68
[2018-09-05] MEDS: Carvedilol 12.5mg tab ORAL SCH (21:21)
[2018-09-05] MEDS: Tamsulosin 0.4mg cap ORAL SCH (21:21)
[2018-09-06] VITALS: BP 108/49
--- NOTE | 2018-09-06 00:15 | Consultation ---
DATE OF CONSULTATION: 09/05/2018 CARDIOLOGY CONSULTATION CONSULTING PHYSICIAN: Luis Jade M.D. REQUESTING PHYSICIAN: Bulmaro Perez M.D. REASON: Acute congestive heart failure and elevated troponin level. HISTORY OF PRESENT ILLNESS: This is an 83-year-old Sinhala male with end-stage renal disease on hemodialysis three days a week. He was scheduled for a session this morning. Late last evening and early this morning, he became increasingly short of breath. He was noted to have worsening blood pressure elevations as a result and progressive hypoxia. Paramedics were summoned and he was transferred to the emergency room. There, he was found to have clinical and radiographic evidence of pulmonary edema and hypoxia. He was placed on a non-rebreather mask. Abnormal lab studies were obtained including troponin level of 0.049. I have been asked to assist with further cardiovascular care. PAST MEDICAL HISTORY: Chronic obstructive pulmonary disease, hypertension, congestive heart failure, cerebrovascular disease, end-stage renal disease, hyperuricemia with history of gout, dysphagia, dementia, paroxysmal atrial fibrillation, pulmonary hypertension, and history of respiratory failure. ALLERGIES: Include multiple food allergies. No medication allergies known. MEDICATIONS: Prior to admission, reviewed and reconciled. SOCIAL HISTORY: No record of smoking, alcohol, or substance abuse. FAMILY HISTORY: Noncontributory. REVIEW OF SYSTEMS: Not reliably obtained from the patient. Review of prior records is completed with pertinent data outlined above. PHYSICAL EXAMINATION: GENERAL: In mild respiratory distress. VITAL SIGNS: Blood pressure up at 213/91 earlier, now 49/86, heart rate 70, and respiratory rate 18. Monitored rhythm, atrial fibrillation. HEENT: Temporal wasting. Pale conjunctivae. Oropharynx clear. NECK: Supple. Jugular venous pressure elevated. LUNGS: Diminished breath sounds and scattered rales. CARDIAC: Irregularly irregular rhythm. Normal S1, S2. A 1/6 systolic murmur at apex. ABDOMEN: Soft, nontender. EXTREMITIES: With no clubbing or cyanosis. No edema. Palpable distal pulses. LABORATORY AND DIAGNOSTIC DATA: EKG, atrial fibrillation, nonspecific ST-T change. White count 6.7, hemoglobin 10.3. Sodium 135, potassium 3.9, bicarbonate 32, BUN 40, and creatinine 4.9. Troponin 0.049. Natriuretic peptide is over 35,000. B12, folate, and thyroid function all within normal limits. IMPRESSION: 1. Acute on chronic diastolic and systolic congestive heart failure. 2. Acute myocardial ischemia and possible non-ST elevation myocardial infarction. 3. End-stage renal disease, on hemodialysis. 4. Anemia of chronic kidney disease. 5. Cerebrovascular disease with dementia. 6. Atrial fibrillation with rate control. 7. Moderate to severe protein-calorie malnutrition. 8. Acute respiratory insufficiency with hypoxia. 9. Hypertensive urgency, improving. PLAN: 1. Cardiac monitoring. 2. Maximize anti-failure therapy, antianginal, and continue cardioembolic prophylaxis with apixaban. 3. Urgent hemodialysis for ultrafiltration. 4. Serial troponin levels. 5. Further recommendations will follow based on clinical course. Luis Jade M.D. DR: NEERAJ JOB#: [id number] CC:
[2018-09-06 04:00] VITALS: BP 131/61
[2018-09-06] MEDS: HydrALAZINE 25mg tab ORAL SCH ×3 (05:43→21:12)
[2018-09-06 08:00] VITALS: BP 128/54
[2018-09-06] MEDS: Eliquis 2.5mg tablet ORAL SCH ×2 (08:50→17:31)
[2018-09-06] MEDS: Aspirin EC 81mg tab ORAL SCH (08:50)
[2018-09-06] MEDS: Carvedilol 12.5mg tab ORAL SCH ×2 (08:56→21:12)
[2018-09-06] MEDS: Imdur 30mg tab ORAL SCH (08:56)
--- NOTE | 2018-09-06 09:12 | Nephrology Progress Note ---
Assessment/Plan Problem List: (1) ESRD (end stage renal disease) on dialysis (2) Acute respiratory failure (3) CHF exacerbation (4) Hypertensive kidney disease (5) Pulmonary hypertension Assessment Acute respiratory failure CHF exacerbation Atrial fibrillation, controlled Others: Hypertension OOC h/o Respiratory Arrest and Pneumonia and Hemoptysis ESRD Cardiac Ischemia Maulti infarct brain disease Pulm HTN Plan Plan; HD done 08/05 next 08/07 Adjust BP meds- Optimize cardiac status Per orders Objective Objective Last 24 Hour Vital Signs Date Time Temp Pulse Resp B/P (MAP) Pulse Ox O2 Delivery O2 Flow Rate FiO2 09/06/18 08:56 128/54 09/06/18 08:56 75 128/54 09/06/18 08:56 75 128/54 09/06/18 05:43 131/61 09/06/18 04:00 97.3 64 20 131/61 (84) 99 09/06/18 04:00 61 09/06/18 01:33 63 20 Venturi Mask 8.0 40 09/06/18 00:00 55 09/06/18 00:00 97.4 69 20 108/49 (68) 99 09/05/18 21:21 149/68 09/05/18 21:21 75 149/68 09/05/18 21:00 Venturi Mask 10.0 09/05/18 20:00 97.4 71 20 149/68 (95) 97 09/05/18 20:00 75 09/05/18 16:00 59 09/05/18 16:00 97.3 56 22 136/53 (80) 100 09/05/18 14:01 119/43 09/05/18 12:00 55 09/05/18 12:00 97.2 56 21 119/43 (68) 100 09/05/18 09:40 Non-Rebreather 10.0 Intake and Output 09/05/18 09/06/18 19:00 07:00 Intake Total 360 ml Output Total 2230 ml 400 ml Balance -1870 ml -400 ml Intake Oral 360 ml Output Urine Total 230 ml 400 ml Hemodialysis UF 2000 ml Height (Feet): 5 Height (Inches): 7.00 Weight (Pounds): 153 Ady Gómez MD Sep 06, 2018 09:12
--- NOTE | 2018-09-06 09:27 | General Progress Note ---
Assessment/Plan Problem List: (1) Atrial fibrillation, controlled ICD Codes: I48.91 - Unspecified atrial fibrillation SNOMED: 469771315 (2) CHF exacerbation ICD Codes: I50.9 - Heart failure, unspecified SNOMED: 52110272 Qualifiers: Qualified Codes: I50.9 - Heart failure, unspecified (3) Hypertensive kidney disease ICD Codes: I12.9 - Hypertensive chronic kidney disease with stage 1 through stage 4 chronic kidney disease, or unspecified chronic kidney disease SNOMED: 17886227 (4) Acute respiratory failure ICD Codes: J96.00 - Acute respiratory failure SNOMED: 87888568 Qualifiers: Qualified Codes: J96.01 - Acute respiratory failure with hypoxia (5) Fluid overload ICD Codes: E87.70 - Hypervolemia SNOMED: 55365625 (6) Anemia ICD Codes: D64.9 - Anemia, unspecified SNOMED: 831730470 Status: stable Assessment/Plan cont hd with uf per renal BP rx repeat cxr improved Subjective ROS Limited/Unobtainable: No Constitutional: Reports: malaise, weakness HEENT: Reports: no symptoms Cardiovascular: Reports: no symptoms Gastrointestinal/Abdominal: Reports: no symptoms Genitourinary: Reports: no symptoms Neurologic/Psychiatric: Reports: no symptoms Endocrine: Reports: no symptoms Hematologic/Lymphatic: Reports: no symptoms Allergies: Coded Allergies: BANANA (Verified Allergy, Severe, 09/05/18) GIL (Verified Allergy, Severe, 09/05/18) CARROT (Verified Allergy, Severe, 09/05/18) Dairy (Verified Allergy, Severe, 09/05/18) GRAPE (Verified Allergy, Severe, 09/05/18) Pork (Verified Allergy, Severe, 09/05/18) Potato (Verified Allergy, Severe, 08/12/18) All Systems: reviewed and negative except above Subjective less sob. s/p HD. denies pain. Objective Last 24 Hour Vital Signs Date Time Temp Pulse Resp B/P (MAP) Pulse Ox O2 Delivery O2 Flow Rate FiO2 09/06/18 08:56 128/54 09/06/18 08:56 75 128/54 09/06/18 08:56 75 128/54 09/06/18 05:43 131/61 09/06/18 04:00 97.3 64 20 131/61 (84) 99 09/06/18 04:00 61 09/06/18 01:33 63 20 Venturi Mask 8.0 40 09/06/18 00:00 55 09/06/18 00:00 97.4 69 20 108/49 (68) 99 09/05/18 21:21 149/68 09/05/18 21:21 75 149/68 09/05/18 21:00 Venturi Mask 10.0 09/05/18 20:00 97.4 71 20 149/68 (95) 97 09/05/18 20:00 75 09/05/18 16:00 59 09/05/18 16:00 97.3 56 22 136/53 (80) 100 09/05/18 14:01 119/43 09/05/18 12:00 55 09/05/18 12:00 97.2 56 21 119/43 (68) 100 09/05/18 09:40 Non-Rebreather 10.0 Intake and Output 09/05/18 09/06/18 19:00 07:00 Intake Total 360 ml Output Total 2230 ml 400 ml Balance -1870 ml -400 ml Intake Oral 360 ml Output Urine Total 230 ml 400 ml Hemodialysis UF 2000 ml Height (Feet): 5 Height (Inches): 7.00 Weight (Pounds): 153 General Appearance: WD/WN, alert Neck: supple Cardiovascular: regular rhythm Respiratory/Chest: lungs clear Abdomen: normal bowel sounds, non tender, no organomegaly Edema: no edema noted Arm (L), no edema noted Arm (R), no edema noted Leg (L), no edema noted Leg (R), no edema noted Pedal (L), no edema noted Pedal (R), no edema noted Generalized Bulmaro Perez MD Sep 06, 2018 09:27
[2018-09-06 10:40] LABS: BASOPHILS % (AUTO) 1.1 % (0.0-2.0); EOSINOPHILS % (AUTO) 1.8 % (0.0-3.0); HEMATOCRIT 29.2 % (42.0-52.0); HEMOGLOBIN 9.4 G/DL (14.2-18.0); LYMPHOCYTES % (AUTO) 16.3 % (20.0-45.0); MEAN CORPUSCULAR VOLUME 100 FL (80-99); MONOCYTES % (AUTO) 11.5 % (1.0-10.0); NEUTROPHILS % (AUTO) 69.4 % (45.0-75.0); PLATELET COUNT 146 K/UL (150-450); RED BLOOD COUNT 2.92 M/UL (4.70-6.10); RED CELL DISTRIBUTION WIDTH 16.4 % (11.6-14.8); WHITE BLOOD COUNT 4.5 K/UL (4.8-10.8)
[2018-09-06 11:30] LABS: ALANINE AMINOTRANSFERASE 37 U/L (12-78); ALBUMIN 2.3 G/DL (3.4-5.0); ALBUMIN/GLOBULIN RATIO 0.6 (1.0-2.7); ALKALINE PHOSPHATASE 178 U/L (46-116); ANION GAP 7 mmol/L (5-15); ASPARTATE AMINO TRANSFERASE 29 U/L (15-37); BILIRUBIN,TOTAL 0.5 MG/DL (0.2-1.0); BLOOD UREA NITROGEN 39 mg/dL (7-18); CALCIUM 7.9 MG/DL (8.5-10.1); CARBON DIOXIDE 34 MMOL/L (21-32); CHLORIDE 96 MMOL/L (98-107); CHOLESTEROL 140 MG/DL (< 200); CREATININE 4.8 MG/DL (0.55-1.30); HDL CHOLESTEROL 40 MG/DL (40-60); PHOSPHORUS 4.1 MG/DL (2.5-4.9); SODIUM 136 MMOL/L (136-145); TRIGLYCERIDES 60 MG/DL (30-150)
[2018-09-06 20:00] VITALS: BP 134/71
[2018-09-06] MEDS: Tamsulosin 0.4mg cap ORAL SCH (21:12)
[2018-09-06] MEDS ORDERED: Norco 5mg/325mg tab ORAL PRN (23:45)
[2018-09-07] VITALS: BP 121/53
--- NOTE | 2018-09-07 00:16 | Progress Note ---
DATE: 09/06/2018 CARDIOLOGY PROGRESS NOTE SUBJECTIVE: The patient has headache at time. He has insomnia. He still is short of breath. He denies chest pain. OBJECTIVE: VITAL SIGNS: Blood pressure 178/54, pulse 75, and respiratory rate 20. Monitored rhythm atrial fibrillation. NECK: Jugular venous pressure elevated. LUNGS: Diminished breath sounds. Few rales. CARDIAC: Irregularly irregular. Normal S1 and S2. A 1/6 systolic murmur at apex. ABDOMEN: Soft. EXTREMITIES: With no edema. LABORATORY DATA: White count 4.5 and hemoglobin 9.4. Troponin 0.045. Pro-natriuretic peptide over 35,000. BUN 39 and creatinine 4.8. IMPRESSION: 1. Acute on chronic diastolic congestive heart failure. 2. End-stage renal disease. 3. Acute myocardial ischemia. 4. Anemia of chronic kidney disease. 5. Hypertensive heart disease. 6. Chronic atrial fibrillation, rate controlled. 7. Acute respiratory failure, resolved. PLAN: 1. Titrate antihypertensives and anti-failure regimen. 2. Followup chest x-ray. 3. Continue hemodialysis for ultrafiltration. Luis Jade M.D. DR: LILIAN JOB#: [id number] CC:
[2018-09-07] MEDS: Zolpidem 5mg tab ORAL PRN (01:10)
[2018-09-07 04:00] VITALS: BP 122/60
[2018-09-07] MEDS: HydrALAZINE 25mg tab ORAL SCH ×3 (05:21→21:05)
[2018-09-07 07:51] VITALS: BP 139/62
[2018-09-07] MEDS: Carvedilol 12.5mg tab ORAL SCH ×2 (07:56→21:06)
[2018-09-07] MEDS: Imdur 30mg tab ORAL SCH (07:57)
[2018-09-07] MEDS: Eliquis 2.5mg tablet ORAL SCH ×2 (07:57→17:30)
[2018-09-07] MEDS: Aspirin EC 81mg tab ORAL SCH (07:57)
--- NOTE | 2018-09-07 08:36 | General Progress Note ---
Assessment/Plan Problem List: (1) Atrial fibrillation, controlled ICD Codes: I48.91 - Unspecified atrial fibrillation SNOMED: 731013990 (2) CHF exacerbation ICD Codes: I50.9 - Heart failure, unspecified SNOMED: 69006465 Qualifiers: Qualified Codes: I50.9 - Heart failure, unspecified (3) Hypertensive kidney disease ICD Codes: I12.9 - Hypertensive chronic kidney disease with stage 1 through stage 4 chronic kidney disease, or unspecified chronic kidney disease SNOMED: 07778115 (4) Acute respiratory failure ICD Codes: J96.00 - Acute respiratory failure SNOMED: 34861867 Qualifiers: Qualified Codes: J96.01 - Acute respiratory failure with hypoxia (5) Fluid overload ICD Codes: E87.70 - Hypervolemia SNOMED: 21078078 (6) Anemia ICD Codes: D64.9 - Anemia, unspecified SNOMED: 373272768 Assessment/Plan cont hd with uf per renal BP rx repeat cxr dvt/stress ulcer prophylaxis Subjective ROS Limited/Unobtainable: No Constitutional: Reports: malaise, weakness HEENT: Reports: no symptoms Cardiovascular: Reports: no symptoms Respiratory: Reports: no symptoms Gastrointestinal/Abdominal: Reports: no symptoms Genitourinary: Reports: no symptoms Neurologic/Psychiatric: Reports: no symptoms Endocrine: Reports: no symptoms Hematologic/Lymphatic: Reports: no symptoms Allergies: Coded Allergies: BANANA (Verified Allergy, Severe, 09/05/18) GIL (Verified Allergy, Severe, 09/05/18) CARROT (Verified Allergy, Severe, 09/05/18) Dairy (Verified Allergy, Severe, 09/05/18) GRAPE (Verified Allergy, Severe, 09/05/18) Pork (Verified Allergy, Severe, 09/05/18) Potato (Verified Allergy, Severe, 08/12/18) All Systems: reviewed and negative except above Subjective no complaints. no sob. denies chest pain . Objective Last 24 Hour Vital Signs Date Time Temp Pulse Resp B/P (MAP) Pulse Ox O2 Delivery O2 Flow Rate FiO2 09/07/18 07:57 139/62 09/07/18 07:57 69 139/62 09/07/18 07:56 69 139/62 09/07/18 07:51 96.4 69 18 139/62 (87) 100 09/07/18 05:21 122/60 09/07/18 04:00 96.9 77 18 122/60 (80) 98 09/07/18 04:00 74 09/07/18 00:00 98.2 87 18 121/53 (75) 98 09/07/18 00:00 76 09/06/18 21:12 134/71 09/06/18 21:12 71 134/71 09/06/18 21:00 Nasal Cannula 2.0 09/06/18 20:00 97.5 71 18 134/71 (92) 98 09/06/18 20:00 67 09/06/18 16:00 66 09/06/18 13:42 109/53 09/06/18 12:00 68 09/06/18 09:00 Venturi Mask 10.0 09/06/18 08:56 128/54 09/06/18 08:56 75 128/54 09/06/18 08:56 75 128/54 Intake and Output 09/06/18 09/07/18 19:00 07:00 Intake Total 360 ml Balance 360 ml Intake Oral 360 ml # Voids 3 2 Laboratory Tests 09/06/18 10:00: White Blood Count 4.5L, Red Blood Count 2.92L, Hemoglobin 9.4L, Hematocrit 29.2L , Mean Corpuscular Volume 100H, Mean Corpuscular Hemoglobin 32.3H, Mean Corpuscular Hemoglobin Concent 32.2, Red Cell Distribution Width 16.4H, Platelet Count 146L, Mean Platelet Volume 6.1L, Neutrophils (%) (Auto) 69.4, Lymphocytes (%) (Auto) 16.3L, Monocytes (%) (Auto) 11.5H, Eosinophils (%) (Auto ) 1.8, Basophils (%) (Auto) 1.1, Sodium Level 136, Potassium Level 4.0, Chloride Level 96L, Carbon Dioxide Level 34H, Anion Gap 7, Blood Urea Nitrogen 39H, Creatinine 4.8H, Estimat Glomerular Filtration Rate , Glucose Level 155H, Calcium Level 7.9L, Phosphorus Level 4.1, Magnesium Level 2.3, Total Bilirubin 0.5, Aspartate Amino Transf (AST/SGOT) 29, Alanine Aminotransferase (ALT/SGPT) 37, Alkaline Phosphatase 178H, Troponin I 0.045, C-Reactive Protein, Quantitative 3.5H, Pro-B-Type Natriuretic Peptide > 31575V, Total Protein 6.4, Albumin 2.3L, Globulin 4.1, Albumin/Globulin Ratio 0.6L, Triglycerides Level 60 , Cholesterol Level 140, LDL Cholesterol 83, HDL Cholesterol 40, Cholesterol/ HDL Ratio 3.5 Height (Feet): 5 Height (Inches): 7.00 Weight (Pounds): 153 Objective General Appearance: WD/WN, alert Neck: supple Cardiovascular: regular rhythm Respiratory/Chest: lungs clear Abdomen: normal bowel sounds, non tender, no organomegaly Edema: no edema noted Arm (L), no edema noted Arm (R), no edema noted Leg (L), no edema noted Leg (R), no edema noted Pedal (L), no edema noted Pedal (R), no edema noted Generalized Bulmaro Perez MD Sep 07, 2018 08:36
--- NOTE | 2018-09-07 08:43 | Diagnostic Imaging Report ---
INDICATION: Cough COMPARISON: Chest x-ray dated 08/21/18 FINDINGS: Single frontal view demonstrates massive enlarged cardiac mediastinal silhouette. Continued patchy opacity throughout the lungs. The visualized osseous structures are within normal limits. IMPRESSION: Enlarged cardiomediastinal silhouette with patchy opacities in the lungs, this can represent congestive heart failure. If clinical concern correlation can be obtained with CT.
--- NOTE | 2018-09-07 09:48 | Nephrology Progress Note ---
Assessment/Plan Problem List: (1) ESRD (end stage renal disease) on dialysis (2) Acute respiratory failure (3) CHF exacerbation (4) Hypertensive kidney disease (5) Pulmonary hypertension Assessment Acute respiratory failure CHF exacerbation Atrial fibrillation, controlled Others: Hypertension OOC h/o Respiratory Arrest and Pneumonia and Hemoptysis ESRD Cardiac Ischemia Maulti infarct brain disease Pulm HTN Plan Plan; HD done 08/05 next 08/07 Adjust BP meds- Optimize cardiac status Per orders Subjective ROS Limited/Unobtainable: No Objective Objective Last 24 Hour Vital Signs Date Time Temp Pulse Resp B/P (MAP) Pulse Ox O2 Delivery O2 Flow Rate FiO2 09/07/18 09:13 Nasal Cannula 2.0 09/07/18 07:57 139/62 09/07/18 07:57 69 139/62 09/07/18 07:56 69 139/62 09/07/18 07:51 96.4 69 18 139/62 (87) 100 09/07/18 05:21 122/60 09/07/18 04:00 96.9 77 18 122/60 (80) 98 09/07/18 04:00 74 09/07/18 00:00 98.2 87 18 121/53 (75) 98 09/07/18 00:00 76 09/06/18 21:12 134/71 09/06/18 21:12 71 134/71 09/06/18 21:00 Nasal Cannula 2.0 09/06/18 20:00 97.5 71 18 134/71 (92) 98 09/06/18 20:00 67 09/06/18 16:00 66 09/06/18 13:42 109/53 09/06/18 12:00 68 Intake and Output 09/06/18 09/07/18 19:00 07:00 Intake Total 360 ml Balance 360 ml Intake Oral 360 ml # Voids 3 2 Laboratory Tests 09/06/18 10:00: White Blood Count 4.5L, Red Blood Count 2.92L, Hemoglobin 9.4L, Hematocrit 29.2L , Mean Corpuscular Volume 100H, Mean Corpuscular Hemoglobin 32.3H, Mean Corpuscular Hemoglobin Concent 32.2, Red Cell Distribution Width 16.4H, Platelet Count 146L, Mean Platelet Volume 6.1L, Neutrophils (%) (Auto) 69.4, Lymphocytes (%) (Auto) 16.3L, Monocytes (%) (Auto) 11.5H, Eosinophils (%) (Auto ) 1.8, Basophils (%) (Auto) 1.1, Sodium Level 136, Potassium Level 4.0, Chloride Level 96L, Carbon Dioxide Level 34H, Anion Gap 7, Blood Urea Nitrogen 39H, Creatinine 4.8H, Estimat Glomerular Filtration Rate , Glucose Level 155H, Calcium Level 7.9L, Phosphorus Level 4.1, Magnesium Level 2.3, Total Bilirubin 0.5, Aspartate Amino Transf (AST/SGOT) 29, Alanine Aminotransferase (ALT/SGPT) 37, Alkaline Phosphatase 178H, Troponin I 0.045, C-Reactive Protein, Quantitative 3.5H, Pro-B-Type Natriuretic Peptide > 12661Z, Total Protein 6.4, Albumin 2.3L, Globulin 4.1, Albumin/Globulin Ratio 0.6L, Triglycerides Level 60 , Cholesterol Level 140, LDL Cholesterol 83, HDL Cholesterol 40, Cholesterol/ HDL Ratio 3.5 Height (Feet): 5 Height (Inches): 7.00 Weight (Pounds): 153 General Appearance: no apparent distress Cardiovascular: normal rate Respiratory/Chest: decreased breath sounds Abdomen: soft Ady Gómez MD Sep 07, 2018 09:48
[2018-09-07 11:41] VITALS: BP 123/60
--- NOTE | 2018-09-07 15:18 | Cardiology Report ---
APPROVED REPORT EKG Measurement Heart [id number] Atrial fibrillation Septal infarct, age undetermined Abnormal ECG
[2018-09-07 16:00] VITALS: BP 124/53
--- NOTE | 2018-09-07 16:31 | Progress Note ---
DATE: 09/07/2018 CARDIOLOGY PROGRESS NOTE SUBJECTIVE: The patient's echocardiogram was reviewed. Ejection fraction is minimally depressed with global hypokinesis and hypertrophy. Of concern is a large pericardial effusion although there is no echocardiographic evidence of tamponade. The patient continues to have shortness of breath, but is improving. OBJECTIVE: VITAL SIGNS: Blood pressure 139/62, pulse 69, respiratory rate 18. LUNGS: With diminished breath sounds. No rales. CARDIAC: Regular rhythm and rate. Normal S1, S2 with no rub. 1/6 systolic apical murmur. ABDOMEN: Soft, nontender. EXTREMITIES: No edema. DIAGNOSTIC DATA: Chest x-ray today reveals patchy opacities in the lungs. IMPRESSION: 1. End-stage renal disease. 2. Pericardial effusion. 3. Hypertensive heart disease. 4. Acute on chronic diastolic congestive heart failure. RECOMMENDATIONS: 1. Continue titration of anti-failure and antihypertensive regimen. 2. Hemodialysis with ultrafiltration. May need more ultrafiltration in view of effusion. 3. No indication for pericardiocentesis at this time. Juan José García JOB#: [id number] CC:
[2018-09-07 20:00] VITALS: BP 144/47
[2018-09-07] MEDS: Tamsulosin 0.4mg cap ORAL SCH (21:04)
[2018-09-08] VITALS: BP 133/59
[2018-09-08 04:00] VITALS: BP 134/70
[2018-09-08] MEDS: HydrALAZINE 25mg tab ORAL SCH ×3 (06:21→21:57)
[2018-09-08 08:00] VITALS: BP 143/59
[2018-09-08] MEDS: Aspirin EC 81mg tab ORAL SCH (08:39)
[2018-09-08] MEDS: Imdur 30mg tab ORAL SCH (08:39)
[2018-09-08] MEDS: Eliquis 2.5mg tablet ORAL SCH ×2 (08:40→17:06)
[2018-09-08] MEDS: Carvedilol 12.5mg tab ORAL SCH ×2 (08:40→20:42)
[2018-09-08 11:27] VITALS: BP 118/57
--- NOTE | 2018-09-08 11:39 | General Progress Note ---
Assessment/Plan Problem List: (1) Atrial fibrillation, controlled ICD Codes: I48.91 - Unspecified atrial fibrillation SNOMED: 352767352 (2) CHF exacerbation ICD Codes: I50.9 - Heart failure, unspecified SNOMED: 54876823 Qualifiers: Qualified Codes: I50.9 - Heart failure, unspecified (3) Hypertensive kidney disease ICD Codes: I12.9 - Hypertensive chronic kidney disease with stage 1 through stage 4 chronic kidney disease, or unspecified chronic kidney disease SNOMED: 75243986 (4) Acute respiratory failure ICD Codes: J96.00 - Acute respiratory failure SNOMED: 19450349 Qualifiers: Qualified Codes: J96.01 - Acute respiratory failure with hypoxia (5) Fluid overload ICD Codes: E87.70 - Hypervolemia SNOMED: 24467125 (6) Anemia ICD Codes: D64.9 - Anemia, unspecified SNOMED: 975914505 Status: stable, progressing Assessment/Plan cont hd with uf per renal BP rx repeat cxr with chf. doubt pna overall imrpoved dvt/stress ulcer prophylaxis dc planning tomorrow if ok with all Subjective ROS Limited/Unobtainable: No Constitutional: Reports: malaise, weakness HEENT: Reports: no symptoms Cardiovascular: Reports: no symptoms Respiratory: Reports: no symptoms Gastrointestinal/Abdominal: Reports: no symptoms Genitourinary: Reports: no symptoms Neurologic/Psychiatric: Reports: no symptoms Endocrine: Reports: no symptoms Hematologic/Lymphatic: Reports: no symptoms Allergies: Coded Allergies: BANANA (Verified Allergy, Severe, 09/05/18) GIL (Verified Allergy, Severe, 09/05/18) CARROT (Verified Allergy, Severe, 09/05/18) Dairy (Verified Allergy, Severe, 09/05/18) GRAPE (Verified Allergy, Severe, 09/05/18) Pork (Verified Allergy, Severe, 09/05/18) Potato (Verified Allergy, Severe, 08/12/18) All Systems: reviewed and negative except above Subjective no complaints. no sob. denies chest pain .CXR shows chf/patchy infiltrates. no fever or cough Objective Last 24 Hour Vital Signs Date Time Temp Pulse Resp B/P (MAP) Pulse Ox O2 Delivery O2 Flow Rate FiO2 09/08/18 11:27 98.0 78 17 118/57 (77) 100 09/08/18 09:14 Nasal Cannula 2.0 09/08/18 08:40 80 143/59 09/08/18 08:40 80 143/59 09/08/18 08:39 143/59 09/08/18 08:00 77 09/08/18 08:00 97.7 80 18 143/59 (87) 99 09/08/18 06:21 130/62 09/08/18 04:00 69 09/08/18 04:00 97.9 70 20 134/70 (91) 99 09/08/18 00:00 74 09/08/18 00:00 98.0 71 18 133/59 (83) 98 09/07/18 21:06 74 144/47 09/07/18 21:05 144/47 09/07/18 21:00 Nasal Cannula 2.0 09/07/18 20:00 70 09/07/18 20:00 97.5 74 20 144/47 (79) 99 09/07/18 16:00 64 09/07/18 16:00 97.9 70 20 124/53 (76) 99 09/07/18 14:53 124/66 09/07/18 12:00 59 09/07/18 11:41 97.6 72 20 123/60 (81) 99 Intake and Output 09/07/18 09/08/18 19:00 07:00 Intake Total 360 ml 240 ml Output Total 200 ml Balance 360 ml 40 ml Intake Oral 360 ml 240 ml Output Urine Total 200 ml # Voids 1 1 Height (Feet): 5 Height (Inches): 7.00 Weight (Pounds): 153 Objective General Appearance: WD/WN, alert Neck: supple Cardiovascular: regular rhythm Respiratory/Chest: lungs clear Abdomen: normal bowel sounds, non tender, no organomegaly Edema: no edema noted Arm (L), no edema noted Arm (R), no edema noted Leg (L), no edema noted Leg (R), no edema noted Pedal (L), no edema noted Pedal (R), no edema noted Generalized Bulmaro Perez MD Sep 08, 2018 11:39
--- NOTE | 2018-09-08 14:46 | Nephrology Progress Note ---
Assessment/Plan Problem List: (1) ESRD (end stage renal disease) on dialysis (2) Acute respiratory failure (3) CHF exacerbation (4) Hypertensive kidney disease (5) Pulmonary hypertension (6) Pericardial effusion Assessment Acute respiratory failure CHF exacerbation Atrial fibrillation, controlled Others: Hypertension OOC h/o Respiratory Arrest and Pneumonia and Hemoptysis ESRD Cardiac Ischemia Maulti infarct brain disease Pulm HTN Plan Plan; HD done 08/07 next 08/09 Adjust BP meds- Optimize cardiac status Per orders remeron HS Subjective ROS Limited/Unobtainable: No Constitutional: Reports: other - insomnia Objective Objective Last 24 Hour Vital Signs Date Time Temp Pulse Resp B/P (MAP) Pulse Ox O2 Delivery O2 Flow Rate FiO2 09/08/18 14:00 118/57 09/08/18 12:00 70 09/08/18 11:27 98.0 78 17 118/57 (77) 100 09/08/18 09:14 Nasal Cannula 2.0 09/08/18 08:40 80 143/59 09/08/18 08:40 80 143/59 09/08/18 08:39 143/59 09/08/18 08:00 77 09/08/18 08:00 97.7 80 18 143/59 (87) 99 09/08/18 06:21 130/62 09/08/18 04:00 69 09/08/18 04:00 97.9 70 20 134/70 (91) 99 09/08/18 00:00 74 09/08/18 00:00 98.0 71 18 133/59 (83) 98 09/07/18 21:06 74 144/47 09/07/18 21:05 144/47 09/07/18 21:00 Nasal Cannula 2.0 09/07/18 20:00 70 09/07/18 20:00 97.5 74 20 144/47 (79) 99 09/07/18 16:00 64 09/07/18 16:00 97.9 70 20 124/53 (76) 99 09/07/18 14:53 124/66 Intake and Output 09/07/18 09/08/18 19:00 07:00 Intake Total 360 ml 240 ml Output Total 200 ml Balance 360 ml 40 ml Intake Oral 360 ml 240 ml Output Urine Total 200 ml # Voids 1 1 Height (Feet): 5 Height (Inches): 7.00 Weight (Pounds): 153 Ady Gómez MD Sep 08, 2018 14:46
[2018-09-08] MEDS ORDERED: HydrALAZINE 25mg tab ORAL PRN (15:00)
[2018-09-08 16:00] VITALS: BP 126/54
[2018-09-08] MEDS: Docusate 100mg cap ORAL SCH (17:06)
--- NOTE | 2018-09-08 17:16 | Progress Note ---
DATE: 09/08/2018 CARDIOLOGY PROGRESS NOTE SUBJECTIVE: The patient is without chest pain and has less shortness of breath. OBJECTIVE: VITAL SIGNS: Afebrile. Blood pressure 118/57, pulse 78, and respirations 17. LUNGS: Coarse breath sounds. Few rales. HEART: Regular rhythm and rate. Normal S1, S2 with no rub. ABDOMEN: Soft. EXTREMITIES: No edema. LABORATORY DATA: No new laboratories today. IMPRESSION: 1. Acute on chronic diastolic congestive heart failure. 2. Pericardial effusion. 3. End-stage renal disease. 4. Acute myocardial ischemia. 5. Severe protein-calorie malnutrition. 6. Ischemic cardiomyopathy. 7. Anemia of chronic kidney disease. PLAN: 1. Continue increased ultrafiltration efforts with hemodialysis. 2. Monitor for signs of clinically significant pericardial effusion. 3. Continue titration and optimization of anti-failure regimen. 4. Protein supplement. 5. Remains high risk. 6. Possible discharge in the next 1 to 2 days based on clinical course. Luis Jade M.D. DR: CHINO JOB#: [id number] CC:
[2018-09-08 20:00] VITALS: BP 118/68
[2018-09-08] MEDS: Tamsulosin 0.4mg cap ORAL SCH (20:40)
[2018-09-09] VITALS: BP 112/51
[2018-09-09 04:00] VITALS: BP 146/64
[2018-09-09] MEDS: HydrALAZINE 25mg tab ORAL SCH ×3 (05:44→20:34)
[2018-09-09 05:50] LABS: BASOPHILS % (AUTO) 0.4 % (0.0-2.0); EOSINOPHILS % (AUTO) 1.7 % (0.0-3.0); HEMATOCRIT 28.1 % (42.0-52.0); HEMOGLOBIN 9.3 G/DL (14.2-18.0); LYMPHOCYTES % (AUTO) 14.2 % (20.0-45.0); MEAN CORPUSCULAR VOLUME 99 FL (80-99); MONOCYTES % (AUTO) 12.1 % (1.0-10.0); NEUTROPHILS % (AUTO) 71.6 % (45.0-75.0); PLATELET COUNT 137 K/UL (150-450); RED BLOOD COUNT 2.84 M/UL (4.70-6.10); RED CELL DISTRIBUTION WIDTH 15.6 % (11.6-14.8); WHITE BLOOD COUNT 6.6 K/UL (4.8-10.8)
[2018-09-09 06:22] LABS: ALANINE AMINOTRANSFERASE 31 U/L (12-78); ALBUMIN 2.4 G/DL (3.4-5.0); ALBUMIN/GLOBULIN RATIO 0.6 (1.0-2.7); ALKALINE PHOSPHATASE 159 U/L (46-116); ANION GAP 10 mmol/L (5-15); ASPARTATE AMINO TRANSFERASE 26 U/L (15-37); BILIRUBIN,TOTAL 0.5 MG/DL (0.2-1.0); BLOOD UREA NITROGEN 52 mg/dL (7-18); CALCIUM 8.2 MG/DL (8.5-10.1); CARBON DIOXIDE 30 MMOL/L (21-32); CHLORIDE 97 MMOL/L (98-107); CREATININE 5.8 MG/DL (0.55-1.30); PHOSPHORUS 4.1 MG/DL (2.5-4.9); POTASSIUM 4.3 MMOL/L (3.5-5.1); SODIUM 137 MMOL/L (136-145)
--- NOTE | 2018-09-09 07:26 | General Progress Note ---
Assessment/Plan Problem List: (1) Atrial fibrillation, controlled ICD Codes: I48.91 - Unspecified atrial fibrillation SNOMED: 336406497 (2) CHF exacerbation ICD Codes: I50.9 - Heart failure, unspecified SNOMED: 20461207 Qualifiers: Qualified Codes: I50.9 - Heart failure, unspecified (3) Hypertensive kidney disease ICD Codes: I12.9 - Hypertensive chronic kidney disease with stage 1 through stage 4 chronic kidney disease, or unspecified chronic kidney disease SNOMED: 01812394 (4) Acute respiratory failure ICD Codes: J96.00 - Acute respiratory failure SNOMED: 37929908 Qualifiers: Qualified Codes: J96.01 - Acute respiratory failure with hypoxia (5) Fluid overload ICD Codes: E87.70 - Hypervolemia SNOMED: 43296390 (6) Anemia ICD Codes: D64.9 - Anemia, unspecified SNOMED: 240474104 Status: stable, progressing Assessment/Plan cont hd with uf per renal BP rx doubt pna overall improved dvt/stress ulcer prophylaxis dc planning today after HD if ok with all Subjective ROS Limited/Unobtainable: No Constitutional: Reports: malaise, weakness HEENT: Reports: no symptoms Cardiovascular: Reports: no symptoms Respiratory: Reports: no symptoms Gastrointestinal/Abdominal: Reports: no symptoms Genitourinary: Reports: no symptoms Neurologic/Psychiatric: Reports: no symptoms Endocrine: Reports: no symptoms Hematologic/Lymphatic: Reports: no symptoms Allergies: Coded Allergies: BANANA (Verified Allergy, Severe, 09/05/18) GIL (Verified Allergy, Severe, 09/05/18) CARROT (Verified Allergy, Severe, 09/05/18) Dairy (Verified Allergy, Severe, 09/05/18) GRAPE (Verified Allergy, Severe, 09/05/18) Pork (Verified Allergy, Severe, 09/05/18) Potato (Verified Allergy, Severe, 08/12/18) All Systems: reviewed and negative except above Subjective no complaints. no sob. denies chest pain .CXR shows chf/patchy infiltrates. no fever or cough no leukocytosis. appears comfortable. eating well. Objective Last 24 Hour Vital Signs Date Time Temp Pulse Resp B/P (MAP) Pulse Ox O2 Delivery O2 Flow Rate FiO2 09/09/18 05:44 143/57 09/09/18 04:00 71 09/09/18 04:00 97.5 72 20 146/64 (91) 95 09/09/18 00:00 69 09/09/18 00:00 97.9 76 20 112/51 (71) 98 09/08/18 21:57 123/53 09/08/18 21:00 Nasal Cannula 2.0 09/08/18 20:42 66 118/68 09/08/18 20:00 98.3 66 20 118/68 (85) 96 09/08/18 20:00 63 09/08/18 16:00 98.8 76 19 126/54 (78) 99 09/08/18 16:00 76 09/08/18 14:00 118/57 09/08/18 12:00 70 09/08/18 11:27 98.0 78 17 118/57 (77) 100 09/08/18 09:14 Nasal Cannula 2.0 09/08/18 08:40 80 143/59 09/08/18 08:40 80 143/59 09/08/18 08:39 143/59 09/08/18 08:00 77 09/08/18 08:00 97.7 80 18 143/59 (87) 99 Intake and Output 09/08/18 09/09/18 18:59 06:59 Intake Total 900 ml Balance 900 ml Intake Oral 300 ml Other 600 ml # Voids 5 Laboratory Tests 09/09/18 03:50: White Blood Count 6.6, Red Blood Count 2.84L, Hemoglobin 9.3L, Hematocrit 28.1L , Mean Corpuscular Volume 99, Mean Corpuscular Hemoglobin 32.7H, Mean Corpuscular Hemoglobin Concent 33.0, Red Cell Distribution Width 15.6H, Platelet Count 137L, Mean Platelet Volume 6.5, Neutrophils (%) (Auto) 71.6, Lymphocytes (%) (Auto) 14.2L, Monocytes (%) (Auto) 12.1H, Eosinophils (%) (Auto ) 1.7, Basophils (%) (Auto) 0.4, Sodium Level 137, Potassium Level 4.3, Chloride Level 97L, Carbon Dioxide Level 30, Anion Gap 10, Blood Urea Nitrogen 52H, Creatinine 5.8H, Estimat Glomerular Filtration Rate , Glucose Level 101, Calcium Level 8.2L, Phosphorus Level 4.1, Magnesium Level 2.2, Total Bilirubin 0.5, Aspartate Amino Transf (AST/SGOT) 26, Alanine Aminotransferase (ALT/SGPT) 31, Alkaline Phosphatase 159H, Troponin I 0.044, C-Reactive Protein, Quantitative 4.3H, Pro-B-Type Natriuretic Peptide 05057G, Total Protein 6.5, Albumin 2.4L, Globulin 4.1, Albumin/Globulin Ratio 0.6L Height (Feet): 5 Height (Inches): 7.00 Weight (Pounds): 153 Objective General Appearance: WD/WN, alert Neck: supple Cardiovascular: regular rhythm Respiratory/Chest: lungs clear Abdomen: normal bowel sounds, non tender, no organomegaly Edema: no edema noted Arm (L), no edema noted Arm (R), no edema noted Leg (L), no edema noted Leg (R), no edema noted Pedal (L), no edema noted Pedal (R), no edema noted Generalized Bulmaro Perez MD Sep 09, 2018 07:26
[2018-09-09 08:00] VITALS: BP 145/61
[2018-09-09] MEDS: Carvedilol 12.5mg tab ORAL SCH ×2 (09:00→20:34)
[2018-09-09] MEDS: Eliquis 2.5mg tablet ORAL SCH ×2 (09:00→17:18)
[2018-09-09] MEDS: Docusate 100mg cap ORAL SCH ×3 (09:00→17:18)
[2018-09-09] MEDS: Imdur 30mg tab ORAL SCH (09:00)
--- NOTE | 2018-09-09 10:27 | Nephrology Progress Note ---
Assessment/Plan Problem List: (1) ESRD (end stage renal disease) on dialysis (2) Acute respiratory failure (3) CHF exacerbation (4) Hypertensive kidney disease (5) Pulmonary hypertension (6) Pericardial effusion Assessment Acute respiratory failure CHF exacerbation Atrial fibrillation, controlled Others: Hypertension OOC h/o Respiratory Arrest and Pneumonia and Hemoptysis ESRD Cardiac Ischemia Maulti infarct brain disease Pulm HTN Plan Plan; HD done 08/07 next 08/09- Currently on HD tolerating well. Adjust BP meds- Optimize cardiac status Per orders constance HS Agree with DC planning Subjective ROS Limited/Unobtainable: No Objective Objective Last 24 Hour Vital Signs Date Time Temp Pulse Resp B/P (MAP) Pulse Ox O2 Delivery O2 Flow Rate FiO2 09/09/18 09:00 Nasal Cannula 2.0 09/09/18 08:00 97.1 77 20 145/61 (89) 99 09/09/18 08:00 74 09/09/18 05:44 143/57 09/09/18 04:00 71 09/09/18 04:00 97.5 72 20 146/64 (91) 95 09/09/18 00:00 69 09/09/18 00:00 97.9 76 20 112/51 (71) 98 09/08/18 21:57 123/53 09/08/18 21:00 Nasal Cannula 2.0 09/08/18 20:42 66 118/68 09/08/18 20:00 98.3 66 20 118/68 (85) 96 09/08/18 20:00 63 09/08/18 16:00 98.8 76 19 126/54 (78) 99 09/08/18 16:00 76 09/08/18 14:00 118/57 09/08/18 12:00 70 09/08/18 11:27 98.0 78 17 118/57 (77) 100 Intake and Output 09/08/18 09/09/18 18:59 06:59 Intake Total 900 ml Balance 900 ml Intake Oral 300 ml Other 600 ml # Voids 5 Current Medications Medications (Trade) Dose Ordered Sig/Kris Route PRN Reason Start Time Stop Time Status Last Admin Dose Admin Acetaminophen (Tylenol) 650 mg Q6H PRN ORAL Mild Pain/Temp > 100.5 09/05/18 09:00 10/05/18 08:59 09/05/18 21:21 Acetaminophen/ Hydrocodone Bitart ([place] 5/325) 1 tab Q6H PRN ORAL For Pain or severe RILEY 09/06/18 23:45 09/13/18 23:44 Apixaban (Eliquis) 2.5 mg BID ORAL 09/05/18 09:00 10/05/18 08:59 09/08/18 17:06 Aspirin (Ecotrin) 81 mg DAILY ORAL 09/05/18 09:00 10/05/18 08:59 09/08/18 08:39 Carvedilol (Coreg) 12.5 mg EVERY 12 HOURS ORAL 09/05/18 21:00 10/05/18 20:59 09/08/18 20:42 Docusate Sodium (Colace) 100 mg THREE TIMES A DAY ORAL 09/08/18 18:00 10/08/18 17:59 09/08/18 17:06 Hydralazine HCl (Apresoline) 25 mg Q4H PRN ORAL bp over 160 syst 09/08/18 15:00 10/05/18 14:59 Hydralazine HCl (Apresoline) 25 mg Q8HR ORAL 09/05/18 14:00 10/05/18 13:59 09/09/18 05:44 Isosorbide Mononitrate (Imdur) 30 mg DAILY ORAL 09/06/18 09:00 10/06/18 08:59 09/08/18 08:39 Mirtazapine (Remeron) 15 mg BEDTIME ORAL 09/08/18 21:00 10/08/18 20:59 09/08/18 20:42 Pantoprazole (Protonix) 40 mg BID ORAL 09/05/18 10:15 10/06/18 06:29 09/08/18 17:06 Tamsulosin HCl (Flomax) 0.4 mg BEDTIME ORAL 09/05/18 21:00 10/05/18 20:59 09/08/18 20:40 Zolpidem Tartrate (Ambien) 5 mg HSPRN PRN ORAL Insomnia 09/06/18 23:45 09/13/18 23:44 09/07/18 01:10 Laboratory Tests 09/09/18 03:50: White Blood Count 6.6, Red Blood Count 2.84L, Hemoglobin 9.3L, Hematocrit 28.1L , Mean Corpuscular Volume 99, Mean Corpuscular Hemoglobin 32.7H, Mean Corpuscular Hemoglobin Concent 33.0, Red Cell Distribution Width 15.6H, Platelet Count 137L, Mean Platelet Volume 6.5, Neutrophils (%) (Auto) 71.6, Lymphocytes (%) (Auto) 14.2L, Monocytes (%) (Auto) 12.1H, Eosinophils (%) (Auto ) 1.7, Basophils (%) (Auto) 0.4, Sodium Level 137, Potassium Level 4.3, Chloride Level 97L, Carbon Dioxide Level 30, Anion Gap 10, Blood Urea Nitrogen 52H, Creatinine 5.8H, Estimat Glomerular Filtration Rate , Glucose Level 101, Calcium Level 8.2L, Phosphorus Level 4.1, Magnesium Level 2.2, Total Bilirubin 0.5, Aspartate Amino Transf (AST/SGOT) 26, Alanine Aminotransferase (ALT/SGPT) 31, Alkaline Phosphatase 159H, Troponin I 0.044, C-Reactive Protein, Quantitative 4.3H, Pro-B-Type Natriuretic Peptide 79278E, Total Protein 6.5, Albumin 2.4L, Globulin 4.1, Albumin/Globulin Ratio 0.6L Height (Feet): 5 Height (Inches): 7.00 Weight (Pounds): 153 General Appearance: no apparent distress Objective no change Ady Gómez MD Sep 09, 2018 10:27
--- NOTE | 2018-09-09 10:34 | Cardiology Report ---
APPROVED REPORT EXAM: Two-dimensional and M-mode echocardiogram with Doppler and color Doppler. INDICATION Congestive Heart Failure M-Mode DIMENSIONS IVSd1.4 (0.7-1.1cm)Left Atrium (MM)4.4 (1.6-4.0cm) LVDd4.9 (3.5-5.6cm)Aortic Root3.5 (2.0-3.7cm) PWd1.8 (0.7-1.1cm)Aortic Cusp Exc.1.7 (1.5-2.0cm) LVDs3.7 (2.5-4.0cm) PWs1.8 cm Normal left ventricular chamber size. Mildly depressed systolic function and wall motion. Echogenic material noted at LV apex. Can not be excluded for thrombus. Left ventricular ejection fraction estimated to be 50 %. Mild left ventricular hypertrophy. Large circumferential pericardial effusion. No sign of tamponade. No diastolic RA or RV collapse noted. Moderate left atrial enlargement. Right atrial size at upper limits of normal. Right ventricular size is within normal limits. Mild focal aortic valve sclerosis with adequate cusp excursion. Mildly thickened mitral valve leaflets with normal excursion. Mild mitral annulus and aortic root calcification. Normal pulmonic valve structure. Normal tricuspid valve structure. IVC dilated at 2.2 cm with slight physiological collapse, suggestive of increased RA pressure. A color flow and spectral Doppler study was performed and revealed: Mild aortic insufficiency. Moderate mitral regurgitation. Mitral inflow non-diagnostic due to Atrial Fibrillation. Moderate tricuspid regurgitation. Tricuspid systolic velocities suggests peak right ventricular systolic pressure of 52 mmHg, consistent with moderate pulmonary hypertension. Moderate pulmonic regurgitation present. No respiratory variation more than 25% across MV and TV. Informed Dr. Jade by John 11:50 Sep 06, 2018.
[2018-09-09] MEDS: Aspirin EC 81mg tab ORAL SCH (11:23)
[2018-09-09 12:00] VITALS: BP 134/56
[2018-09-09 16:00] VITALS: BP 126/75
[2018-09-09 20:00] VITALS: BP 163/64
[2018-09-09] MEDS: Zolpidem 5mg tab ORAL PRN (20:34)
[2018-09-09] MEDS: Tamsulosin 0.4mg cap ORAL SCH (20:34)
[2018-09-10] VITALS: BP 146/65
--- NOTE | 2018-09-10 03:02 | Progress Note ---
DATE: 09/09/2018 CARDIOLOGY PROGRESS NOTE SUBJECTIVE: The patient feels better with less shortness of breath, but still labored at times. His mobility is minimal due to exertional shortness of breath. PHYSICAL EXAMINATION: VITAL SIGNS: Blood pressure 163/64, pulse 77, and respirations 20. Oxygen saturation on two liters 98% to 100%. LUNGS: With few rales. CARDIAC: Regular rhythm and rate. Normal S1, S2. A 1/6 systolic apical murmur. No rub. ABDOMEN: Soft. EXTREMITIES: No edema. IMPRESSION: 1. Acute on chronic diastolic congestive heart failure. 2. Pericardial effusion. 3. End-stage renal disease. 4. Hypertensive heart disease. 5. Acute myocardial ischemia. 6. Cerebrovascular disease with dementia. PLAN: 1. Continue sequential hemodialysis with ultrafiltration. 2. Monitor for clinical signs of progressing pericardial effusion of hemodynamic significance. 3. Ultrafiltration for fluid removal. 4. Additional titration of anti-failure and antihypertensive regimen. 5. Discharge planning. Luis Jade M.D. DR: NEERAJ JOB#: [id number] CC:
[2018-09-10 04:00] VITALS: BP 154/70
[2018-09-10] MEDS: HydrALAZINE 25mg tab ORAL SCH ×2 (05:13→14:00)
--- NOTE | 2018-09-10 06:25 | General Progress Note ---
Assessment/Plan Problem List: (1) Atrial fibrillation, controlled ICD Codes: I48.91 - Unspecified atrial fibrillation SNOMED: 003723187 (2) CHF exacerbation ICD Codes: I50.9 - Heart failure, unspecified SNOMED: 31315278 Qualifiers: Qualified Codes: I50.9 - Heart failure, unspecified (3) Hypertensive kidney disease ICD Codes: I12.9 - Hypertensive chronic kidney disease with stage 1 through stage 4 chronic kidney disease, or unspecified chronic kidney disease SNOMED: 68799519 (4) Acute respiratory failure ICD Codes: J96.00 - Acute respiratory failure SNOMED: 04984081 Qualifiers: Qualified Codes: J96.01 - Acute respiratory failure with hypoxia (5) Fluid overload ICD Codes: E87.70 - Hypervolemia SNOMED: 33717286 (6) Anemia ICD Codes: D64.9 - Anemia, unspecified SNOMED: 147233603 (7) COPD (chronic obstructive pulmonary disease) with chronic bronchitis ICD Codes: J44.9 - Chronic obstructive pulmonary disease, unspecified SNOMED: 798807335 (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 o2 sats 87% on room air. dc planning today once home o2 arranged Subjective Constitutional: Reports: malaise, weakness HEENT: Reports: no symptoms Cardiovascular: Reports: no symptoms Respiratory: Reports: no symptoms Gastrointestinal/Abdominal: Reports: no symptoms Genitourinary: Reports: no symptoms Neurologic/Psychiatric: Reports: no symptoms Endocrine: Reports: no symptoms Hematologic/Lymphatic: Reports: no symptoms Allergies: Coded Allergies: BANANA (Verified Allergy, Severe, 09/05/18) GIL (Verified Allergy, Severe, 09/05/18) CARROT (Verified Allergy, Severe, 09/05/18) Dairy (Verified Allergy, Severe, 09/05/18) GRAPE (Verified Allergy, Severe, 09/05/18) Pork (Verified Allergy, Severe, 09/05/18) Potato (Verified Allergy, Severe, 08/12/18) All Systems: reviewed and negative except above Subjective no complaints. no sob. denies chest pain family insisting on taking pt home instead of snf awaiting home o2 arrangements Objective Last 24 Hour Vital Signs Date Time Temp Pulse Resp B/P (MAP) Pulse Ox O2 Delivery O2 Flow Rate FiO2 09/10/18 05:13 154/70 09/10/18 04:00 98.0 85 23 154/70 (98) 93 09/10/18 00:00 81 09/10/18 00:00 98.7 79 20 146/65 (92) 94 09/09/18 20:39 Nasal Cannula 2.0 09/09/18 20:34 163/64 09/09/18 20:34 77 163/64 09/09/18 20:00 74 09/09/18 20:00 99.1 77 20 163/64 (97) 98 09/09/18 16:06 141/68 09/09/18 16:00 80 09/09/18 16:00 97.7 89 19 126/75 (92) 99 09/09/18 12:00 97.5 87 20 134/56 (82) 100 09/09/18 12:00 74 09/09/18 09:00 110/65 09/09/18 09:00 77 145/61 09/09/18 09:00 Nasal Cannula 2.0 09/09/18 08:00 97.1 77 20 145/61 (89) 99 09/09/18 08:00 74 Intake and Output 09/09/18 09/10/18 19:00 07:00 Intake Total 440 ml Balance 440 ml Intake Oral 440 ml # Voids 1 Height (Feet): 5 Height (Inches): 7.00 Weight (Pounds): 153 Objective General Appearance: WD/WN, alert Neck: supple Cardiovascular: regular rhythm Respiratory/Chest: lungs clear Abdomen: normal bowel sounds, non tender, no organomegaly Edema: no edema noted Arm (L), no edema noted Arm (R), no edema noted Leg (L), no edema noted Leg (R), no edema noted Pedal (L), no edema noted Pedal (R), no edema noted Generalized Bulmaro Perez MD Sep 10, 2018 06:25
[2018-09-10 08:00] VITALS: BP 127/72
[2018-09-10] MEDS: Imdur 30mg tab ORAL SCH (08:40)
[2018-09-10] MEDS: Aspirin EC 81mg tab ORAL SCH (08:40)
[2018-09-10] MEDS: Docusate 100mg cap ORAL SCH ×2 (08:40→14:02)
[2018-09-10] MEDS: Eliquis 2.5mg tablet ORAL SCH (08:41)
[2018-09-10] MEDS: Carvedilol 12.5mg tab ORAL SCH (08:41)
[2018-09-10 12:00] VITALS: BP 125/69
[2018-09-10] MEDS ORDERED: ELIQUIS2.5 MG PO (12:06)
[2018-09-10] MEDS ORDERED: ISOSORBIDE MONO20 MG PO (12:54)
--- NOTE | 2018-09-10 15:24 | Nephrology Progress Note ---
Assessment/Plan Problem List: (1) ESRD (end stage renal disease) on dialysis (2) Acute respiratory failure (3) CHF exacerbation (4) Hypertensive kidney disease (5) Pulmonary hypertension (6) Pericardial effusion Assessment Acute respiratory failure CHF exacerbation Atrial fibrillation, controlled Others: Hypertension OOC h/o Respiratory Arrest and Pneumonia and Hemoptysis ESRD Cardiac Ischemia Maulti infarct brain disease Pulm HTN Plan Plan; HD done 08/07 next 08/09- Currently on HD tolerating well. Adjust BP meds- Optimize cardiac status Per orders remeron HS Agree with DC planning Subjective ROS Limited/Unobtainable: No Objective Objective Last 24 Hour Vital Signs Date Time Temp Pulse Resp B/P (MAP) Pulse Ox O2 Delivery O2 Flow Rate FiO2 09/10/18 14:00 109/65 09/10/18 12:00 97.1 74 16 125/69 (87) 100 09/10/18 12:00 77 09/10/18 09:00 Nasal Cannula 2.0 09/10/18 08:41 79 138/60 09/10/18 08:40 138/60 09/10/18 08:00 78 09/10/18 08:00 97.7 69 16 127/72 (90) 99 09/10/18 05:13 154/70 09/10/18 04:00 98.0 85 23 154/70 (98) 93 09/10/18 04:00 84 09/10/18 00:00 81 09/10/18 00:00 98.7 79 20 146/65 (92) 94 09/09/18 20:39 Nasal Cannula 2.0 09/09/18 20:34 163/64 09/09/18 20:34 77 163/64 09/09/18 20:00 74 09/09/18 20:00 99.1 77 20 163/64 (97) 98 09/09/18 16:06 141/68 09/09/18 16:00 80 09/09/18 16:00 97.7 89 19 126/75 (92) 99 Intake and Output 09/09/18 09/10/18 18:59 06:59 Intake Total 440 ml Balance 440 ml Intake Oral 440 ml # Voids 1 2 Current Medications Medications (Trade) Dose Ordered Sig/Kris Route PRN Reason Start Time Stop Time Status Last Admin Dose Admin Acetaminophen (Tylenol) 650 mg Q6H PRN ORAL Mild Pain/Temp > 100.5 09/05/18 09:00 10/05/18 08:59 09/05/18 21:21 Acetaminophen/ Hydrocodone Bitart ([place] 5/325) 1 tab Q6H PRN ORAL For Pain or severe RILEY 09/06/18 23:45 09/13/18 23:44 Apixaban (Eliquis) 2.5 mg BID ORAL 09/05/18 09:00 10/05/18 08:59 09/10/18 08:41 Aspirin (Ecotrin) 81 mg DAILY ORAL 09/05/18 09:00 10/05/18 08:59 09/10/18 08:40 Carvedilol (Coreg) 12.5 mg EVERY 12 HOURS ORAL 09/05/18 21:00 10/05/18 20:59 09/10/18 08:41 Docusate Sodium (Colace) 100 mg THREE TIMES A DAY ORAL 09/08/18 18:00 10/08/18 17:59 09/10/18 14:02 Hydralazine HCl (Apresoline) 25 mg Q4H PRN ORAL bp over 160 syst 09/08/18 15:00 10/05/18 14:59 Hydralazine HCl (Apresoline) 25 mg Q8HR ORAL 09/05/18 14:00 10/05/18 13:59 09/10/18 05:13 Isosorbide Mononitrate (Imdur) 30 mg DAILY ORAL 09/06/18 09:00 10/06/18 08:59 09/10/18 08:40 Mirtazapine (Remeron) 15 mg BEDTIME ORAL 09/08/18 21:00 10/08/18 20:59 09/08/18 20:42 Pantoprazole (Protonix) 40 mg BID ORAL 09/05/18 10:15 10/06/18 06:29 09/10/18 08:41 Tamsulosin HCl (Flomax) 0.4 mg BEDTIME ORAL 09/05/18 21:00 10/05/18 20:59 09/09/18 20:34 Zolpidem Tartrate (Ambien) 5 mg HSPRN PRN ORAL Insomnia 09/06/18 23:45 09/13/18 23:44 09/09/18 20:34 Height (Feet): 5 Height (Inches): 7.00 Weight (Pounds): 153 General Appearance: no apparent distress Respiratory/Chest: lungs clear Abdomen: soft Objective no change Ady Gómez MD Sep 10, 2018 15:24
[2018-09-10 16:00] VITALS: BP 135/67
--- NOTE | 2018-09-11 03:31 | Progress Note ---
DATE: 09/10/2018 SUBJECTIVE: The patient has no complaints. He denies chest pain or shortness of breath. He wants to return home and he is requiring chronic oxygenation. OBJECTIVE: VITAL SIGNS: Blood pressure 154/70, pulse 85, respiratory rate 23, and afebrile. LUNGS: Diminished breath sounds. No wheezing. CARDIAC: Irregularly irregular rhythm. Normal S1 and S2 with no rub. ABDOMEN: Soft and nontender. EXTREMITIES: There is no edema. LABORATORY DATA: No new labs today. IMPRESSION: 1. End-stage renal disease, on hemodialysis. 2. Acute on chronic diastolic congestive heart failure, now compensated. 3. Pericardial effusion, presently of no hemodynamic consequence. 4. Hypertensive heart disease with controlled blood pressure. 5. Paroxysmal atrial fibrillation, rate controlled. 6. Hypoxia. PLAN: 1. Home O2. 2. Hemodialysis with increasing ultrafiltration as tolerated. 3. Titrate anti-failure and antihypertensive regimen long-term. 4. Outpatient Cardiology followup offered. Luis Jade M.D. DR: HARRIETT JOB#: [id number] CC:
--- NOTE | 2018-09-12 08:56 | Discharge Summary ---
Discharge Summary Discharge Summary _ DATE OF ADMISSION: 09/05/2018 DATE OF DISCHARGE: 09/10/2018 REASON FOR ADMISSION: 83 years old male with past medical history of atrial fibrillation, end-stage renal disease, on hemodialysis, hypertension, COPD, CHF, history of CVA, dementia, dysphagia, presented to emergency department complaining of shortness of breath. Paramedics reported high blood pressure and hypoxia in mid 80s. Upon evaluation patient was on 100% nonrebreathing mask with pulse oximetry 100% . Blood pressure was 213/91. Laboratory workup revealed no leukocytosis , anemia with hemoglobin 10.3 hematocrit 31.4. Troponin was negative. BUN 40 creatine 4.9, consistent with known history of end-stage renal disease. EKG revealed atrial fibrillation with controlled rhythm. Chest x-ray revealed evidence of congestive heart failure. Patient admitted with diagnoses of acute respiratory failure, CHF exacerbation, hypertensive emergency, atrial fibrillation with controlled rate. CONSULTANTS: information clerk Dr. Jade devulcanizer loader Dr. Gómez HOSPITAL COURSE: Patient admitted to telemetry floor. Cardiology and nephrology closely followed . Echocardiogram revealed mildly depressed systolic function and wall motion. Echogenic material noted at the LV apex. Thrombus was not excluded. Left ventricular ejection fraction estimated to be 50%. Mild left ventricular hypertrophy. Large pericardial effusion with no signs of tamponade. Moderate mitral regurgitation. Moderate tricuspid regurgitation. Right ventricular systolic pressure of 52 consistent with moderate pulmonary hypertension. Anti-failure and antianginal regimens were uptitrated and maximized. Cardioembolic prophylaxis with Apixaban was continued. Serial troponin were negative. Urgent hemodialysis with ultrafiltration provided as per devulcanizer loader orders. Patient was on antiplatelet therapy with aspirin. Anti-failure regimen consisted of beta umair, isosorbide and hydralazine. Blood pressure was managed with beta umair,calcium channel umair and hydralazine , eventually stabilized. GI prophylaxis provided. Lipid panel and TSH were within normal limits. Patient remained in atrial fibrillation with controlled rate . Patient was continued on sequential hemodialysis with ultrafiltration. Patient was closely monitored for clinical signs of progressing pericardial effusion of hemodynamic significance. There was no indication for pericardiocentesis at this time. Supplemental oxygen provided as needed to keep pulse oximetry above 92%. Pulmonary toilet provided as needed. Follow-up chest x-ray showed improvement. Patient required oxygen for home use, since oxygen saturation was only 87% on room air. Ethics Officer recommendations implemented in plan of care. Hemoglobin and hematocrit were closely monitored with goal to keep hemoglobin above 7. Anemia workup revealed evidence of anemia of chronic disease with high ferritin level. Prior to discharge hemoglobin 9.3 hematocrit 28.1 Home oxygen was arranged, and patient was stable for discharge home. Outpatient follow-up with primary care provider and outpatient hemodialysis. FINAL DIAGNOSES: Acute hypoxemic respiratory failure ( requiring non rebreathing mass) Hypertensive urgency -resolved Acute on chronic diastolic congestive heart failure Hypertensive heart and kidney disease Pericardial effusion, presently of no hemodynamic consequence Ischemic cardiomyopathy End-stage renal disease ,on hemodialysis Acute myocardial ischemia Atrial fibrillation with controlled rate, paroxysmal History of CVA with dementia Pulmonary hypertension Anemia of chronic kidney disease DISCHARGE MEDICATIONS: See Medication Reconciliation list. DISCHARGE INSTRUCTIONS: Patient was discharged home Follow up with primary care provider in one week. Follow up with outpatient hemodialysis as scheduled. I have been assigned to dictate discharge summary for this account. I was not involved in the patient's management. Breonna John NP Sep 12, 2018 08:56
== END 2018-09-10 16:50 | disposition home health service (06) | DRG 291 ==
LOC: EDBD 03:30 → EMR 03:49 → EDBEDREQ 05:00 → 2E 05:06 → EDBEDREQ 05:40
PROC: 5A1D70Z Performance of Urinary Filtration, Intermittent, Less than 6 Hours Per Day (ICD-10-PCS; principal; 2018-09-05)
DX: I13.2 Hypertensive heart and chronic kidney disease with heart failure and with stage 5 chronic kidney disease, or end stage renal disease (principal); N18.6 End stage renal disease; I50.33 Acute on chronic diastolic (congestive) heart failure; E43 Unspecified severe protein-calorie malnutrition; J96.01 Acute respiratory failure with hypoxia; Z99.2 Dependence on renal dialysis; I16.0 Hypertensive urgency; I25.5 Ischemic cardiomyopathy; I51.3 Intracardiac thrombosis, not elsewhere classified; I48.0 Paroxysmal atrial fibrillation; I27.20 Pulmonary hypertension, unspecified; I69.318 Other symptoms and signs involving cognitive functions following cerebral infarction; F01.50 Vascular dementia, unspecified severity, without behavioral disturbance, psychotic disturbance, mood disturbance, and anxiety; I34.0 Nonrheumatic mitral (valve) insufficiency; I36.1 Nonrheumatic tricuspid (valve) insufficiency; D64.9 Anemia, unspecified; Z91.018 Allergy to other foods; Z87.891 Personal history of nicotine dependence
CPT/HCPCS: 36415; 51702; 71045; 80053; 80061; 81003; 82550; 82553; 82607; 82728; 82746; 83540; 83550; 83735; 83880; 84100; 84443; 84484; 85025; 85610; 85730; 86140; 87081; 93005; 93306; 94664; 96374; 99291

== ENCOUNTER 2018-09-19 11:59 | Inpatient (IN) | payer MEDICARE, MEDICAID ==
[~2018-09-19] VITALS: Ht 167.6 cm; Wt 60.8 kg
[~2018-09-19 11:59] MED LIST changes: +AMBIEN5 MG ORAL
[2018-09-19 12:30] VITALS: BP 123/62
[2018-09-19 13:12] LABS: BASOPHILS % (AUTO) 0.2 % (0.0-2.0); HEMATOCRIT 28.1 % (42.0-52.0); HEMOGLOBIN 9.2 G/DL (14.2-18.0); LYMPHOCYTES % (AUTO) 11.2 % (20.0-45.0); MEAN CORPUSCULAR VOLUME 97 FL (80-99); NEUTROPHILS % (AUTO) 81.6 % (45.0-75.0); PLATELET COUNT 149 K/UL (150-450); RED CELL DISTRIBUTION WIDTH 15.3 % (11.6-14.8); WHITE BLOOD COUNT 7.8 K/UL (4.8-10.8)
[2018-09-19 13:23] LABS: ANION GAP 8 mmol/L (5-15); BLOOD UREA NITROGEN 29 mg/dL (7-18); CALCIUM 8.6 MG/DL (8.5-10.1); CARBON DIOXIDE 35 MMOL/L (21-32); CHLORIDE 98 MMOL/L (98-107); CREATININE 2.4 MG/DL (0.55-1.30); POTASSIUM 3.3 MMOL/L (3.5-5.1); SODIUM 141 MMOL/L (136-145)
[2018-09-19 13:36] LABS: ALANINE AMINOTRANSFERASE 28 U/L (12-78); ALBUMIN 2.6 G/DL (3.4-5.0); ALBUMIN/GLOBULIN RATIO 0.6 (1.0-2.7); ALKALINE PHOSPHATASE 136 U/L (46-116); ASPARTATE AMINO TRANSFERASE 25 U/L (15-37); CKMB 1.4 NG/ML (0.0-3.6); CREATINE KINASE 40 U/L (26-308)
[2018-09-19] MEDS ORDERED: Lidocaine 1% Plain 30 ml INJ ONE ×2 (13:38→14:45)
[2018-09-19] MEDS ORDERED: Aspirin Baby 81mg ORAL ONE (13:45)
--- NOTE | 2018-09-19 14:05 | Emergency Room Report ---
History of Present Illness General Chief Complaint: Dyspnea/Respdistress Source: Patient Present Illness HPI Patient is 83-year-old male presented after increased shortness of breath. Patient had recently had dialysis. Patient was noted to have prior history of end-stage renal disease and was dialyzed for 5 hours this morning. The patient was noted to have worsening shortness of breath. The patient was recently hospitalized was noted to have a myocardial infarction. The patient had cardiac arrest and had CPR during recent hospitalization. The patient was noted to have increased had difficulty breathing. History is limited by patient 's shortness of breath. The patient's family is no code and not to be intubated Allergies: Coded Allergies: BANANA (Verified Allergy, Severe, 09/05/18) GIL (Verified Allergy, Severe, 09/05/18) CARROT (Verified Allergy, Severe, 09/05/18) Dairy (Verified Allergy, Severe, 09/05/18) GRAPE (Verified Allergy, Severe, 09/05/18) Pork (Verified Allergy, Severe, 09/05/18) Potato (Verified Allergy, Severe, 08/12/18) Patient History Past Medical History: see triage record Reviewed Nursing Documentation: PMH: Agreed; PSxH: Agreed Nursing Documentation-PMH Past Medical History: No History, Except For Hx Cardiac Problems: Yes Hx Hypertension: Yes Hx Pacemaker: No Hx Asthma: No Hx COPD: Yes Hx Diabetes: No Hx Cancer: No Hx Gastrointestinal Problems: Yes - dysphagia, gout Hx Dialysis: Yes - T, TH, Sat Hx Neurological Problems: Yes Hx Cerebrovascular Accident: Yes Hx Dementia: Yes Hx Seizures: No Review of Systems All Other Systems: limited - by poor historian Physical Exam Vital Signs Date Time Temp Pulse Resp B/P (MAP) Pulse Ox O2 Delivery O2 Flow Rate FiO2 09/19/18 12:08 96.6 97 36 108/46 63 Room Air 09/19/18 12:10 15.0 100 Sp02 EP Interpretation: reviewed, normal General Appearance: normal inspection, alert, severe distress, Chronically Ill Head: atraumatic ENT: normal ENT inspection, hearing grossly normal, normal voice Neck: normal inspection, full range of motion, supple, no bony tend Respiratory: normal inspection, no retraction, respiratory distress, crackles Cardiovascular #1: regular rate, rhythm, no edema Gastrointestinal: normal inspection, normal bowel sounds, non tender, soft, no guarding, no hernia Genitourinary: no CVA tenderness Musculoskeletal: normal inspection, back normal, normal range of motion, other - left forearm dialysis patent Neurologic: normal inspection, alert, responsive, 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, speech normal Psychiatric: normal inspection, judgement/insight normal, mood/affect normal Skin: normal inspection, normal color, no rash Procedures Central Line Central Line : Consent: Written Central Line Lumen: triple Maximal Sterile Barrier Tech: yes cap, yes mask, yes sterile gown, yes sterile gloves, yes large sterile sheet, yes hand hygiene, yes chlorhexidine prep Central Line Postion: internal jugular (L) Anesthesia: local cc's of anesthesia: 5 Complications: none Central Line Post Position: sutured, good blood return, position confirmed w / CXR Attempts: One Patient Tolerated: Well Complications: None Medical Decision Making Diagnostic Impression: Primary Impression: Myocardial injury Additional Impression: COPD (chronic obstructive pulmonary disease) with chronic bronchitis ER Course Patient presented for shortness of breath. Differential included but was not limited to anemia, pneumonia, pneumothorax, myocardial infarction, pericardial effusion, congestive heart failure, acidosis. Because of complexity of patient' s case laboratory testing and imaging studies were ordered. The patient was noted to have markedly difficulty breathing. Initial oxygen saturation was in the 60s. The patient started on supplemental oxygen with improvement in his oxygen level. He was started on BiPAP. The patient given aspirin. The patient noted to be somewhat anemic. Dr. Gómez was contacted for nephrology consult. Dr. Bulmaro Perez was contacted for admission Labs Test 09/19/18 12:40 White Blood Count 7.8 K/UL (4.8-10.8) Red Blood Count 2.90 M/UL (4.70-6.10) Hemoglobin 9.2 G/DL (14.2-18.0) Hematocrit 28.1 % (42.0-52.0) Mean Corpuscular Volume 97 FL (80-99) Mean Corpuscular Hemoglobin 31.9 PG (27.0-31.0) Mean Corpuscular Hemoglobin Concent 32.9 G/DL (32.0-36.0) Red Cell Distribution Width 15.3 % (11.6-14.8) Platelet Count 149 K/UL (150-450) Mean Platelet Volume 6.2 FL (6.5-10.1) Neutrophils (%) (Auto) 81.6 % (45.0-75.0) Lymphocytes (%) (Auto) 11.2 % (20.0-45.0) Monocytes (%) (Auto) 7.0 % (1.0-10.0) Eosinophils (%) (Auto) 0.0 % (0.0-3.0) Basophils (%) (Auto) 0.2 % (0.0-2.0) Sodium Level 141 MMOL/L (136-145) Potassium Level 3.3 MMOL/L (3.5-5.1) Chloride Level 98 MMOL/L (98-107) Carbon Dioxide Level 35 MMOL/L (21-32) Anion Gap 8 mmol/L (5-15) Blood Urea Nitrogen 29 mg/dL (7-18) Creatinine 2.4 MG/DL (0.55-1.30) Estimat Glomerular Filtration Rate mL/min (>60) Glucose Level 114 MG/DL (74-106) Lactic Acid Level 1.20 mmol/L (0.4-2.0) Calcium Level 8.6 MG/DL (8.5-10.1) Total Bilirubin 1.0 MG/DL (0.2-1.0) Aspartate Amino Transf (AST/SGOT) 25 U/L (15-37) Alanine Aminotransferase (ALT/SGPT) 28 U/L (12-78) Alkaline Phosphatase 136 U/L (46-116) Total Creatine Kinase 40 U/L (26-308) Creatine Kinase MB 1.4 NG/ML (0.0-3.6) Creatine Kinase MB Relative Index 3.5 Troponin I 0.599 ng/mL (0.000-0.056) Total Protein 7.2 G/DL (6.4-8.2) Albumin 2.6 G/DL (3.4-5.0) Globulin 4.6 g/dL Albumin/Globulin Ratio 0.6 (1.0-2.7) Lipase 62 U/L (73-393) EKG Diagnostic Results Rate: normal Rhythm: other - afib ST Segments: no acute changes ASA given to the pt in ED: Yes Last Vital Signs Date Time Temp Pulse Resp B/P (MAP) Pulse Ox O2 Delivery O2 Flow Rate FiO2 09/19/18 13:06 97 27 100 Facial 30 09/19/18 12:10 15.0 09/19/18 12:08 96.6 108/46 Status: improved Disposition: ADMITTED INPATIENT Condition: Serious Referrals: Ady Gómez MD (PCP) Blanco Barry MD Sep 19, 2018 14:05
[2018-09-19 14:38] VITALS: BP 137/57
[2018-09-19] MEDS ORDERED: Albuterol/Ipratropium 3ml neb HHN PRN (15:15)
[2018-09-19 15:17] VITALS: BP 144/95
[2018-09-19 15:47] VITALS: BP 131/66
[2018-09-19] MEDS: Docusate 100mg cap ORAL SCH (18:28)
[2018-09-19 20:00] VITALS: BP 133/65
[2018-09-20] VITALS: BP 137/62
[2018-09-20 03:56] VITALS: BP 138/67
[2018-09-20 08:00] VITALS: BP 128/46
[2018-09-20] MEDS: Docusate 100mg cap ORAL SCH ×3 (09:14→18:18)
[2018-09-20] MEDS: Aspirin EC 81mg tab ORAL SCH (09:14)
--- NOTE | 2018-09-20 09:59 | Consultation ---
Consult Note Consult Note Patient is 83-year-old male presented after increased shortness of breath. Patient had recently had dialysis. Patient was noted to have prior history of end-stage renal disease and was dialyzed for 5 hours this morning. The patient was noted to have worsening shortness of breath. The patient was recently hospitalized was noted to have a myocardial infarction. The patient had cardiac arrest and had CPR during recent hospitalization. The patient was noted to have increased had difficulty breathing. History is limited by patient 's shortness of breath. The patient's family is no code and not to be intubated Allergies: Coded Allergies: BANANA (Verified Allergy, Severe, 09/05/18) GIL (Verified Allergy, Severe, 09/05/18) CARROT (Verified Allergy, Severe, 09/05/18) Dairy (Verified Allergy, Severe, 09/05/18) GRAPE (Verified Allergy, Severe, 09/05/18) Pork (Verified Allergy, Severe, 09/05/18) Potato (Verified Allergy, Severe, 08/12/18) Past Medical History: No History, Except For Hx Cardiac Problems: Yes Hx Hypertension: Yes Hx COPD: Yes Hx Gastrointestinal Problems: Yes - dysphagia, gout Hx Dialysis: Yes - T, TH, Sat Hx Neurological Problems: Yes Hx Cerebrovascular Accident: Yes Hx Dementia: Yes examined- data reviewed Assessment/Plan ESRD Myocardial injury CHF / Pericardial effusion Atrial fibrillation, controlled Others: Hypertension h/o Respiratory Arrest and Pneumonia and Hemoptysis ESRD Maulti infarct brain disease Pulm HTN Now DNR HD in am ASA Nitrate per orders Ady Gómez MD Sep 20, 2018 09:59
[2018-09-20] MEDS ORDERED: HydrALAZINE 25mg tab ORAL PRN (10:15)
--- NOTE | 2018-09-20 10:15 | History and Physical Report ---
DATE OF ADMISSION: 09/19/2018 CHIEF COMPLAINT: Respiratory failure and CHF. HISTORY OF PRESENT ILLNESS: The patient is an 83-year-old male well known to me. He has history of CHF, hypertension, hypertensive heart disease, end-stage renal disease, and GERD who was brought in by family members from home with complaints of worsening shortness of breath. The patient recently admitted to [facility] with CHF exacerbation. He was dialyzed for several days. He declined going back to the senior living and requested to go back home with his family members. He had been doing well until several days prior to admission when he had worsening shortness of breath. There are no reports of any fever, chills, or cough. On evaluation in the emergency room, the patient was severely hypoxic, requiring placement of BiPAP. Blood gas at that time showed a pO2 of only 50. Urgent hemodialysis is arranged. The patient is now somewhat improved. PAST MEDICAL HISTORY: As above. PAST SURGICAL HISTORY: None. CURRENT MEDICATIONS: Reconciled and reviewed. ALLERGIES: Include bananas, beans, carrots, dairy, grape, pork, and potato. FAMILY HISTORY: Noncontributory. SOCIAL HISTORY: There is no known history of tobacco, ethanol, or drugs. REVIEW OF SYSTEMS: Unobtainable as the patient is confused. PHYSICAL EXAMINATION: VITAL SIGNS: Temperature 98, pulse was 82, respiratory rate was 30, and blood pressure 138/67. GENERAL: The patient is well developed, in no apparent distress. Sitting upright in bed. HEART: Regular rate and rhythm. LUNGS: Significant for bibasilar rales. ABDOMEN: Soft, nontender, and nondistended. EXTREMITIES: Without clubbing, cyanosis, or edema. LABORATORY AND IMAGING DATA: White count was 8, hemoglobin 9, hematocrit 28, and platelet count 149,000. Sodium 141, potassium 3.3, BUN 29, and creatinine is 2.4. Troponin is 0.599. Chest x-ray showed bilateral infiltrates for pulmonary edema. ASSESSMENT: This is an 83-year-old male with end-stage renal disease, hypertension, and congestive heart failure, admitted with complaints of respiratory failure secondary to congestive heart failure and pulmonary edema. 1. Congestive heart failure. 2. Respiratory failure. 3. Pulmonary edema. 4. Possible acute coronary syndrome. 5. Hypertension. PLAN: Hemodialysis with ultrafiltration. Continue antiplatelet therapy. We will trend troponin level. Monitor chest x-ray. Continue BiPAP as needed. Pulmonary, Cardiology, and Renal evaluations will be obtained. Bulmaro Perez M.D. DR: CLARE JOB#: [id number] CC:
--- NOTE | 2018-09-20 10:33 | Diagnostic Imaging Report ---
Indication: Shortness of breath Technique: One view of the chest Comparison: 09/07/2018 Findings: The heart is enlarged. There is bilateral interstitial and airspace edema and small bilateral pleural effusions, extensive disease similar to that seen previously. The bones are unremarkable Impression: Cardiomegaly Evidence of congestive heart failure, with bilateral interstitial and airspace edema, small bilateral pleural effusions
--- NOTE | 2018-09-20 10:38 | Diagnostic Imaging Report ---
Indication: Post central line placement Technique: One view of the chest Comparison: 2 hours earlier Findings: And replaced the left jugular central venous catheter, tip which projects at the level of the innominate venous confluence. Cardiomegaly, interstitial and airspace edema, small bilateral pleural effusions are unchanged. There is no pneumothorax Impression: Status post left internal jugular central venous catheter placement. No radiographically evident complication Stable cardiomegaly and evidence of congestive heart failure, as described
[2018-09-20] MEDS: Nitroglycerin Patch 0.4mg TDERMAL SCH (11:37)
[2018-09-20 12:00] VITALS: BP 149/76
--- NOTE | 2018-09-20 14:19 | Diagnostic Imaging Report ---
Indication: Shortness of breath Technique: One view of the chest Comparison: 09/19/2018 Findings: Left jugular central venous catheter is again demonstrated. Diffuse interstitial and airspace disease, bilateral pleural effusions persist, unchanged. Massive cardiomegaly persists. Impression: Unchanged, over one day, findings as above.
[2018-09-20] MEDS: HydrALAZINE 25mg tab ORAL SCH ×2 (14:25→21:32)
[2018-09-20 16:00] VITALS: BP 129/75
[2018-09-20] MEDS: Eliquis 2.5mg tablet ORAL SCH (18:18)
[2018-09-20 20:00] VITALS: BP 145/75
[2018-09-20] MEDS: Dyna-Hex 2% Top Sol 2oz TOPIC SCH (21:31)
[2018-09-21] VITALS: BP 156/67
[2018-09-21 04:00] VITALS: BP 148/74
[2018-09-21 05:22] LABS: BASOPHILS % (AUTO) 0.3 % (0.0-2.0); HEMATOCRIT 25.2 % (42.0-52.0); HEMOGLOBIN 8.8 G/DL (14.2-18.0); LYMPHOCYTES % (AUTO) 13.3 % (20.0-45.0); MEAN CORPUSCULAR VOLUME 98 FL (80-99); MONOCYTES % (AUTO) 9.3 % (1.0-10.0); NEUTROPHILS % (AUTO) 74.1 % (45.0-75.0); PLATELET COUNT 147 K/UL (150-450); RED BLOOD COUNT 2.56 M/UL (4.70-6.10); RED CELL DISTRIBUTION WIDTH 17.2 % (11.6-14.8); WHITE BLOOD COUNT 6.4 K/UL (4.8-10.8)
[2018-09-21 05:36] LABS: % IRON SATURATION 27 % (15-50); IRON 34 ug/dL (50-175); TOTAL IRON BINDING CAPACITY 128 ug/dL (250-450)
[2018-09-21 05:48] LABS: ALANINE AMINOTRANSFERASE 21 U/L (12-78); ALBUMIN 2.3 G/DL (3.4-5.0); ALBUMIN/GLOBULIN RATIO 0.6 (1.0-2.7); ALKALINE PHOSPHATASE 147 U/L (46-116); ANION GAP 8 mmol/L (5-15); ASPARTATE AMINO TRANSFERASE 27 U/L (15-37); BILIRUBIN,TOTAL 0.6 MG/DL (0.2-1.0); BLOOD UREA NITROGEN 67 mg/dL (7-18); CALCIUM 8.5 MG/DL (8.5-10.1); CARBON DIOXIDE 33 MMOL/L (21-32); CHLORIDE 98 MMOL/L (98-107); CREATININE 4.5 MG/DL (0.55-1.30); PHOSPHORUS 3.1 MG/DL (2.5-4.9); POTASSIUM 3.4 MMOL/L (3.5-5.1); SODIUM 139 MMOL/L (136-145)
[2018-09-21] MEDS: HydrALAZINE 25mg tab ORAL SCH ×3 (06:32→21:18)
[2018-09-21 06:36] LABS: FERRITIN 1525 NG/ML (8-388)
[2018-09-21 08:00] VITALS: BP 149/66
[2018-09-21] MEDS: Aspirin EC 81mg tab ORAL SCH (08:19)
[2018-09-21] MEDS: Docusate 100mg cap ORAL SCH ×3 (08:19→18:01)
[2018-09-21] MEDS: Eliquis 2.5mg tablet ORAL SCH ×2 (08:20→18:02)
--- NOTE | 2018-09-21 11:27 | Nephrology Progress Note ---
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 Pulm HTN Now DNR Plan HD in process- tolerating well. ASA Nitrate per orders Subjective ROS Limited/Unobtainable: No Constitutional: Reports: malaise Objective Objective Last 24 Hour Vital Signs Date Time Temp Pulse Resp B/P (MAP) Pulse Ox O2 Delivery O2 Flow Rate FiO2 09/21/18 08:20 80 149/66 09/21/18 08:00 72 09/21/18 08:00 Nasal Cannula 2.0 09/21/18 08:00 98.0 80 20 149/66 (93) 100 09/21/18 06:47 Nasal Cannula 2.0 28 09/21/18 06:47 95 Nasal Cannula 2.0 28 09/21/18 06:32 148/74 09/21/18 04:00 97.9 75 21 148/74 (98) 99 09/21/18 04:00 75 09/21/18 04:00 Nasal Cannula 2.0 09/21/18 00:00 96.8 81 26 156/67 (96) 96 09/21/18 00:00 Nasal Cannula 2.0 09/21/18 00:00 88 09/20/18 21:32 145/75 09/20/18 21:31 86 145/75 09/20/18 20:00 99.3 86 21 145/75 (98) 97 09/20/18 20:00 77 09/20/18 20:00 Nasal Cannula 2.0 09/20/18 18:48 Nasal Cannula 2.0 28 09/20/18 18:48 96 Nasal Cannula 2.0 28 09/20/18 17:09 96 2.0 28 09/20/18 16:00 81 09/20/18 16:00 Nasal Cannula 2.0 09/20/18 16:00 2.0 09/20/18 16:00 97.3 83 18 129/75 (93) 96 09/20/18 14:32 96 2.0 28 09/20/18 14:25 149/76 09/20/18 13:25 96 2.0 28 09/20/18 12:00 82 09/20/18 12:00 97.3 80 20 149/76 (100) 95 09/20/18 12:00 2.0 09/20/18 12:00 Nasal Cannula 2.0 09/20/18 11:37 128/46 09/20/18 11:30 96 2.0 28 Intake and Output 09/20/18 09/21/18 19:00 07:00 Intake Total 340 ml 150 ml Output Total 100 ml 200 ml Balance 240 ml -50 ml Intake Oral 340 ml 150 ml Output Urine Total 100 ml 200 ml # Voids 1 Laboratory Tests 09/21/18 03:30: White Blood Count 6.4, Red Blood Count 2.56L, Hemoglobin 8.8L, Hematocrit 25.2L , Mean Corpuscular Volume 98, Mean Corpuscular Hemoglobin 34.5H, Mean Corpuscular Hemoglobin Concent 35.0, Red Cell Distribution Width 17.2H, Platelet Count 147L, Mean Platelet Volume 6.2L, Neutrophils (%) (Auto) 74.1, Lymphocytes (%) (Auto) 13.3L, Monocytes (%) (Auto) 9.3, Eosinophils (%) (Auto) 3.0, Basophils (%) (Auto) 0.3, Sodium Level 139, Potassium Level 3.4L, Chloride Level 98, Carbon Dioxide Level 33H, Anion Gap 8, Blood Urea Nitrogen 67H, Creatinine 4.5H, Estimat Glomerular Filtration Rate , Glucose Level 114H, Uric Acid 4.1, Calcium Level 8.5, Phosphorus Level 3.1, Magnesium Level 2.1, Iron Level 34L, Total Iron Binding Capacity 128L, Percent Iron Saturation 27, Unsaturated Iron Binding 94L, Ferritin 1525H, Total Bilirubin 0.6, Aspartate Amino Transf (AST/SGOT) 27, Alanine Aminotransferase (ALT/SGPT) 21, Alkaline Phosphatase 147H, Troponin I 0.483H, Pro-B-Type Natriuretic Peptide > 48973W, Total Protein 6.4, Albumin 2.3L, Globulin 4.1, Albumin/Globulin Ratio 0.6L, Thyroid Stimulating Hormone (TSH) 1.119 Height (Feet): 5 Height (Inches): 6.00 Weight (Pounds): 129 General Appearance: no apparent distress Cardiovascular: arrhythmia Respiratory/Chest: decreased breath sounds Abdomen: soft Ady Gómez MD Sep 21, 2018 11:27
--- NOTE | 2018-09-21 11:29 | Consultation ---
DATE OF CONSULTATION: 09/21/2018 PULMONARY CONSULTATION CONSULTING PHYSICIAN: Juan José Jin M.D. REASON FOR CONSULTATION: Shortness of breath, BiPAP management. HISTORY OF PRESENT ILLNESS: This is an 83-year-old male with history of CHF and hypertensive heart disease with end-stage renal disease. The patient is admitted for CHF exacerbation, shortness of breath as well as respiratory insufficiency. The patient is undergoing dialysis at present time. The patient has had worsening shortness of breath and required placement of BiPAP. Currently, the patient is off and appears to be more comfortable. The patient is seen by renal and orders were put in place. The patient does mention seems to be somewhat improved on oxygen. Care discussed with nursing staff and the notes reviewed in detail. The patient's findings fairly acute. The patient apparently declined to go back to the [facility] and has been home with family members. The patient's care discussed and reviewed. PAST MEDICAL HISTORY: CHF, hypertension, hypertensive heart disease, GERD, and end-stage renal disease. MEDICATIONS: Reviewed. ALLERGIES: Reviewed. PAST SURGICAL HISTORY: Reviewed. FAMILY HISTORY: Otherwise noncontributory to the above. REVIEW OF SYSTEMS: Unobtainable due to the patient's present state. PHYSICAL EXAMINATION: GENERAL: A well-developed male, comfortable at present. No significant distress. VITAL SIGNS: Currently 95% on 2 liters, blood pressure 149/66, pulse 80, respirations 20, and temperature 98. HEENT: Negative. Extraocular movements are grossly intact. NECK: Supple. LUNGS: With reduced breath sounds in the apices. Occasional crackles at both bases. CARDIAC: S1 and S2. Slightly distant. Positive gallop. Positive murmur, systolic. ABDOMEN: Soft, nondistended. EXTREMITIES: Without edema. No cyanosis or clubbing. DIAGNOSTIC AND LABORATORY DATA: Laboratory data reviewed. White count 6.4, hemoglobin 8.8, hematocrit 25, and platelets 147. Blood gases 7.58, 40, 51, 36. Chemistries noted and reviewed. Sodium 139, potassium 3.4, BUN 67, creatinine 4.5. Ferritin is very elevated. Alkaline phosphatase is elevated at 147. BNP over 35,000. Albumin is 2.3. The x-ray with severe cardiomegaly and evidence of interstitial/airspace disease. IMPRESSION: 1. Acute pulmonary edema with fluid overload. 2. Profound cardiomegaly, likely cardiomyopathy. 3. BPH. 4. End-stage renal disease. 5. Severe protein-calorie malnutrition. 6. Respiratory failure, acute. 7. History of psychosis. 8. History of underlying dementia. 9. Evidence of anemia, likely of chronic disease. 10. Mild thrombocytopenia. RECOMMENDATIONS: 1. Supportive care. 2. At present, hemodialysis with ultrafiltration. 3. Doubt need for antibiotics as likely findings are consistent with acute pulmonary edema. 4. We will follow up x-ray and exam. 5. We will monitor acid-base as needed. 6. We will assess clinically for further changes, intervention, and ongoing recommendations. 7. The patient's prognosis appears to be improved. No clear need for BiPAP at present time. Juan José Jin M.D. DR: CHRISTOPHER JOB#: [id number] CC:
[2018-09-21 11:43] VITALS: BP 129/75
--- NOTE | 2018-09-21 13:08 | General Progress Note ---
Assessment/Plan Problem List: (1) Hypertensive kidney disease ICD Codes: I12.9 - Hypertensive chronic kidney disease with stage 1 through stage 4 chronic kidney disease, or unspecified chronic kidney disease SNOMED: 20560726 (2) Pulmonary hypertension ICD Codes: I27.20 - Pulmonary hypertension, unspecified SNOMED: 51444414 (3) Hypoxemia ICD Codes: R09.02 - Hypoxemia SNOMED: 120285941 (4) COPD (chronic obstructive pulmonary disease) with emphysema ICD Codes: J43.9 - Emphysema, unspecified SNOMED: 71632991 (5) COPD (chronic obstructive pulmonary disease) with chronic bronchitis ICD Codes: J44.9 - Chronic obstructive pulmonary disease, unspecified SNOMED: 235486890 (6) Myocardial injury ICD Codes: S26.90XA - Unspecified injury of heart, unspecified with or without hemopericardium, initial encounter SNOMED: 03124593 (7) Acute respiratory failure ICD Codes: J96.00 - Acute respiratory failure SNOMED: 49365350 (8) ESRD (end stage renal disease) on dialysis ICD Codes: N18.6 - End stage renal failure on dialysis; Z99.2 - Dependence on renal dialysis SNOMED: 496070428 (9) Fluid overload ICD Codes: E87.70 - Hypervolemia SNOMED: 48941904 Status: stable, progressing Assessment/Plan cont HD with UF o2 as needed bipap as needed antiplt rx cards follow up pt requesting to go back to [facility] once stable for dc Subjective ROS Limited/Unobtainable: No Constitutional: Reports: malaise, weakness HEENT: Reports: no symptoms Cardiovascular: Reports: no symptoms Respiratory: Reports: orthopnea, shortness of breath Gastrointestinal/Abdominal: Reports: no symptoms Genitourinary: Reports: no symptoms Neurologic/Psychiatric: Reports: no symptoms Endocrine: Reports: no symptoms Hematologic/Lymphatic: Reports: no symptoms Allergies: Coded Allergies: BANANA (Verified Allergy, Severe, 09/05/18) GIL (Verified Allergy, Severe, 09/05/18) CARROT (Verified Allergy, Severe, 09/05/18) Dairy (Verified Allergy, Severe, 09/05/18) GRAPE (Verified Allergy, Severe, 09/05/18) Pork (Verified Allergy, Severe, 09/05/18) Potato (Verified Allergy, Severe, 08/12/18) All Systems: reviewed and negative except above Subjective no events. less sob. sitting up right in bed. on o2. pulm and renal appreciated. Objective Last 24 Hour Vital Signs Date Time Temp Pulse Resp B/P (MAP) Pulse Ox O2 Delivery O2 Flow Rate FiO2 09/21/18 12:00 Nasal Cannula 2.0 09/21/18 11:43 97.9 77 21 129/75 (93) 100 09/21/18 08:20 80 149/66 09/21/18 08:00 72 09/21/18 08:00 Nasal Cannula 2.0 09/21/18 08:00 98.0 80 20 149/66 (93) 100 09/21/18 06:47 Nasal Cannula 2.0 28 09/21/18 06:47 95 Nasal Cannula 2.0 28 09/21/18 06:32 148/74 09/21/18 04:00 97.9 75 21 148/74 (98) 99 09/21/18 04:00 75 09/21/18 04:00 Nasal Cannula 2.0 09/21/18 00:00 96.8 81 26 156/67 (96) 96 09/21/18 00:00 Nasal Cannula 2.0 09/21/18 00:00 88 09/20/18 21:32 145/75 09/20/18 21:31 86 145/75 09/20/18 20:00 99.3 86 21 145/75 (98) 97 09/20/18 20:00 77 09/20/18 20:00 Nasal Cannula 2.0 09/20/18 18:48 Nasal Cannula 2.0 28 09/20/18 18:48 96 Nasal Cannula 2.0 28 09/20/18 17:09 96 2.0 28 09/20/18 16:00 81 09/20/18 16:00 Nasal Cannula 2.0 09/20/18 16:00 2.0 09/20/18 16:00 97.3 83 18 129/75 (93) 96 09/20/18 14:32 96 2.0 28 09/20/18 14:25 149/76 09/20/18 13:25 96 2.0 28 Intake and Output 09/20/18 09/21/18 19:00 07:00 Intake Total 340 ml 150 ml Output Total 100 ml 200 ml Balance 240 ml -50 ml Intake Oral 340 ml 150 ml Output Urine Total 100 ml 200 ml # Voids 1 Laboratory Tests 09/21/18 03:30: White Blood Count 6.4, Red Blood Count 2.56L, Hemoglobin 8.8L, Hematocrit 25.2L , Mean Corpuscular Volume 98, Mean Corpuscular Hemoglobin 34.5H, Mean Corpuscular Hemoglobin Concent 35.0, Red Cell Distribution Width 17.2H, Platelet Count 147L, Mean Platelet Volume 6.2L, Neutrophils (%) (Auto) 74.1, Lymphocytes (%) (Auto) 13.3L, Monocytes (%) (Auto) 9.3, Eosinophils (%) (Auto) 3.0, Basophils (%) (Auto) 0.3, Sodium Level 139, Potassium Level 3.4L, Chloride Level 98, Carbon Dioxide Level 33H, Anion Gap 8, Blood Urea Nitrogen 67H, Creatinine 4.5H, Estimat Glomerular Filtration Rate , Glucose Level 114H, Uric Acid 4.1, Calcium Level 8.5, Phosphorus Level 3.1, Magnesium Level 2.1, Iron Level 34L, Total Iron Binding Capacity 128L, Percent Iron Saturation 27, Unsaturated Iron Binding 94L, Ferritin 1525H, Total Bilirubin 0.6, Aspartate Amino Transf (AST/SGOT) 27, Alanine Aminotransferase (ALT/SGPT) 21, Alkaline Phosphatase 147H, Troponin I 0.483H, Pro-B-Type Natriuretic Peptide > 88797L, Total Protein 6.4, Albumin 2.3L, Globulin 4.1, Albumin/Globulin Ratio 0.6L, Thyroid Stimulating Hormone (TSH) 1.119 Height (Feet): 5 Height (Inches): 6.00 Weight (Pounds): 129 General Appearance: WD/WN, alert Neck: supple Cardiovascular: normal rate Respiratory/Chest: crackles/rales Abdomen: normal bowel sounds, non tender Extremities: normal range of motion Edema: no edema noted Arm (L), no edema noted Arm (R), no edema noted Leg (L), no edema noted Leg (R), no edema noted Pedal (L), no edema noted Pedal (R), no edema noted Generalized Bulmaro Perez MD Sep 21, 2018 13:08
[2018-09-21] MEDS: Nitroglycerin Patch 0.4mg TDERMAL SCH (13:56)
[2018-09-21 16:00] VITALS: BP 161/72
[2018-09-21 20:00] VITALS: BP 154/73
[2018-09-21] MEDS: Dyna-Hex 2% Top Sol 2oz TOPIC SCH (21:17)
[2018-09-21] MEDS: Carvedilol 12.5mg tab ORAL SCH (21:18)
[2018-09-22] VITALS (8 sets, daily range): BP systolic 138–156; BP diastolic 60–77
[2018-09-22] MEDS: HydrALAZINE 25mg tab ORAL SCH ×3 (06:35→21:47)
--- NOTE | 2018-09-22 07:57 | Pulmonology Progress Note ---
Assessment/Plan Assessment/Plan IMPRESSION: 1. Acute pulmonary edema with fluid overload. 2. Profound cardiomegaly, likely cardiomyopathy. 3. BPH. 4. End-stage renal disease. 5. Severe protein-calorie malnutrition. 6. Respiratory failure, acute. 7. History of psychosis. 8. History of underlying dementia. 9. Evidence of anemia, likely of chronic disease. 10. Mild thrombocytopenia. PLAN diurese monitor acid base exchange off antibiotics oxygen monitor for change care noted impression, plan, and exam edited and reviewed in detail care discussed with RN Subjective ROS Limited/Unobtainable: Yes Allergies: Coded Allergies: BANANA (Verified Allergy, Severe, 09/05/18) GIL (Verified Allergy, Severe, 09/05/18) CARROT (Verified Allergy, Severe, 09/05/18) Dairy (Verified Allergy, Severe, 09/05/18) GRAPE (Verified Allergy, Severe, 09/05/18) Pork (Verified Allergy, Severe, 09/05/18) Potato (Verified Allergy, Severe, 08/12/18) Subjective care noted Objective Last 24 Hour Vital Signs Date Time Temp Pulse Resp B/P (MAP) Pulse Ox O2 Delivery O2 Flow Rate FiO2 09/22/18 06:35 153/69 09/22/18 04:00 71 09/22/18 04:00 Nasal Cannula 2.0 09/22/18 04:00 98.3 78 20 153/69 (97) 100 09/22/18 00:00 Nasal Cannula 2.0 09/22/18 00:00 87 09/22/18 00:00 98.4 80 20 138/77 (97) 98 09/21/18 21:18 96 154/73 09/21/18 21:18 154/73 09/21/18 20:14 96 Nasal Cannula 2.0 28 09/21/18 20:14 Nasal Cannula 2.0 28 09/21/18 20:14 96 20 Nasal Cannula 2.0 28 09/21/18 20:00 82 09/21/18 20:00 98.3 79 24 154/73 (100) 96 09/21/18 20:00 Nasal Cannula 2.0 09/21/18 16:00 Nasal Cannula 2.0 09/21/18 16:00 97.8 82 21 161/72 (101) 100 09/21/18 16:00 79 09/21/18 13:56 157/71 09/21/18 13:55 157/71 09/21/18 12:00 74 09/21/18 12:00 Nasal Cannula 2.0 09/21/18 11:43 97.9 77 21 129/75 (93) 100 09/21/18 08:20 80 149/66 09/21/18 08:00 72 09/21/18 08:00 Nasal Cannula 2.0 09/21/18 08:00 98.0 80 20 149/66 (93) 100 Intake and Output 09/21/18 09/22/18 19:00 07:00 Intake Total 150 ml 150 ml Output Total 2600 ml 150 ml Balance -2450 ml 0 ml Intake Oral 150 ml 150 ml Output Urine Total 100 ml 150 ml Hemodialysis UF 2500 ml # Voids 2 Objective GENERAL: A well-developed male, comfortable at present. No significant distress. HEENT: Negative. Extraocular movements are grossly intact. NECK: Supple. LUNGS: With reduced breath sounds in the apices. Occasional crackles at both bases. CARDIAC: S1 and S2. Slightly distant. Positive gallop. Positive murmur, systolic. ABDOMEN: Soft, nondistended. EXTREMITIES: Without edema. No cyanosis or clubbing. Microbiology Date/Time Source Procedure Growth Status 09/19/18 12:45 Blood Blood Culture - Preliminary NO GROWTH AFTER 48 HOURS Resulted 09/19/18 12:40 Blood Blood Culture - Preliminary NO GROWTH AFTER 48 HOURS Resulted 09/19/18 16:00 Nasal Nares MRSA Culture - Final NO METHICILLIN RESISTANT STAPH AUREUS... Complete 09/19/18 12:40 Nasal Nares Influenza Types A,B Antigen (JOSEFA) - Final Complete 09/19/18 16:00 Rectum VRE Culture - Final Enterococcus Faecium - Vre Complete 09/19/18 16:00 Rectum - Final NO CARBAPENEM-RESISTANT ENTEROBACTERI... Complete Current Medications Medications (Trade) Dose Ordered Sig/Kris Route PRN Reason Start Time Stop Time Status Last Admin Dose Admin Acetaminophen (Tylenol) 650 mg Q4H PRN ORAL Mild Pain/Temp > 100.5 09/19/18 15:15 10/19/18 15:14 09/21/18 21:20 Albuterol/ Ipratropium (Albuterol/ Ipratropium) 3 ml Q4H PRN HHN Shortness of Breath 09/19/18 15:15 09/24/18 15:14 Apixaban (Eliquis) 2.5 mg BID ORAL 09/20/18 18:00 10/20/18 17:59 09/21/18 18:02 Aspirin (Ecotrin) 81 mg DAILY ORAL 09/20/18 09:00 10/20/18 08:59 09/21/18 08:19 Carvedilol (Coreg) 12.5 mg EVERY 12 HOURS ORAL 09/21/18 21:00 10/21/18 20:59 09/21/18 21:18 Chlorhexidine Gluconate (Anni-Hex 2%) 1 applic DAILY@1999 TOPIC 09/20/18 20:00 10/20/18 19:59 09/21/18 21:17 Docusate Sodium (Colace) 100 mg THREE TIMES A DAY ORAL 09/19/18 18:00 10/19/18 17:59 09/21/18 18:01 Finasteride (Proscar) 5 mg DAILY ORAL 09/20/18 09:00 10/20/18 08:59 09/21/18 08:19 Hydralazine HCl (Apresoline) 25 mg Q4H PRN ORAL for BP over 160 syst 09/20/18 10:15 10/20/18 10:14 Hydralazine HCl (Apresoline) 25 mg Q8HR ORAL 09/20/18 14:00 10/20/18 13:59 09/22/18 06:35 Mirtazapine (Remeron) 15 mg BEDTIME ORAL 09/20/18 21:00 10/20/18 20:59 09/21/18 21:18 Nitroglycerin (Ntg) 1 patch Q24H TDERMAL 09/20/18 10:15 10/20/18 10:14 09/21/18 13:56 Ondansetron HCl (Zofran) 4 mg Q6H PRN IVP Nausea & Vomiting 09/19/18 15:15 10/19/18 15:14 Pantoprazole (Protonix) 40 mg ACBREAKFAST ORAL 09/20/18 06:30 10/20/18 06:29 09/22/18 06:35 Sevelamer Carbonate (Renvela) 800 mg THREE TIMES A DAY ORAL 09/21/18 13:00 10/21/18 12:59 09/21/18 18:01 Juan José Jin MD Sep 22, 2018 07:57
[2018-09-22] MEDS: Aspirin EC 81mg tab ORAL SCH (08:05)
[2018-09-22] MEDS: Carvedilol 12.5mg tab ORAL SCH (08:06)
[2018-09-22] MEDS: Docusate 100mg cap ORAL SCH ×3 (08:06→17:19)
[2018-09-22] MEDS: Eliquis 2.5mg tablet ORAL SCH ×2 (08:10→17:19)
--- NOTE | 2018-09-22 08:59 | Diagnostic Imaging Report ---
EXAM: XR Chest, 1 View CLINICAL HISTORY: Shortness of breath TECHNIQUE: Frontal view of the chest. COMPARISON: Chest x-ray dated 09/20/18 FINDINGS: Lungs: No significant change in diffuse interstitial and air space opacities. Pleural space: No significant change of small bilateral pleural effusions. Heart: Cardiomegaly, unchanged. Mediastinum: Unremarkable. Bones/joints: Unremarkable. Tubes, lines and devices: Left IJ approach central venous catheter is stable in positioning. IMPRESSION: No significant interval change.
[2018-09-22] MEDS ORDERED: Albuterol/Ipratropium 3ml neb HHN PRN (09:00)
[2018-09-22] MEDS ORDERED: HydrALAZINE 25mg tab ORAL PRN (09:00)
--- NOTE | 2018-09-22 10:06 | General Progress Note ---
Assessment/Plan Problem List: (1) Hypertensive kidney disease ICD Codes: I12.9 - Hypertensive chronic kidney disease with stage 1 through stage 4 chronic kidney disease, or unspecified chronic kidney disease SNOMED: 21141531 (2) Pulmonary hypertension ICD Codes: I27.20 - Pulmonary hypertension, unspecified SNOMED: 51997148 (3) Hypoxemia ICD Codes: R09.02 - Hypoxemia SNOMED: 986499981 (4) COPD (chronic obstructive pulmonary disease) with emphysema ICD Codes: J43.9 - Emphysema, unspecified SNOMED: 68414797 (5) COPD (chronic obstructive pulmonary disease) with chronic bronchitis ICD Codes: J44.9 - Chronic obstructive pulmonary disease, unspecified SNOMED: 371589587 (6) Myocardial injury ICD Codes: S26.90XA - Unspecified injury of heart, unspecified with or without hemopericardium, initial encounter SNOMED: 19814745 (7) Acute respiratory failure ICD Codes: J96.00 - Acute respiratory failure SNOMED: 25111919 (8) ESRD (end stage renal disease) on dialysis ICD Codes: N18.6 - End stage renal failure on dialysis; Z99.2 - Dependence on renal dialysis SNOMED: 364416755 (9) Fluid overload ICD Codes: E87.70 - Hypervolemia SNOMED: 37163648 Status: stable, progressing Assessment/Plan cont HD with UF o2 as needed bipap as needed antiplt rx cards follow up pt requesting to go back to snf once stable for dc Subjective ROS Limited/Unobtainable: No Constitutional: Reports: malaise, weakness HEENT: Reports: no symptoms Cardiovascular: Reports: no symptoms Respiratory: Reports: shortness of breath Gastrointestinal/Abdominal: Reports: no symptoms Genitourinary: Reports: no symptoms Neurologic/Psychiatric: Reports: no symptoms Endocrine: Reports: no symptoms Hematologic/Lymphatic: Reports: no symptoms Allergies: Coded Allergies: BANANA (Verified Allergy, Severe, 09/05/18) GIL (Verified Allergy, Severe, 09/05/18) CARROT (Verified Allergy, Severe, 09/05/18) Dairy (Verified Allergy, Severe, 09/05/18) GRAPE (Verified Allergy, Severe, 09/05/18) Pork (Verified Allergy, Severe, 09/05/18) Potato (Verified Allergy, Severe, 10/15/18) All Systems: reviewed and negative except above Subjective no events. less sob. sitting up right in bed. on o2. cxr still with pulm infil/ chf Objective Last 24 Hour Vital Signs Date Time Temp Pulse Resp B/P (MAP) Pulse Ox O2 Delivery O2 Flow Rate FiO2 09/22/18 09:53 142/78 09/22/18 09:00 Nasal Cannula 2.0 09/22/18 08:40 98.3 83 20 141/69 (93) 92 09/22/18 08:06 80 141/60 09/22/18 08:00 97.4 80 20 141/60 (87) 97 09/22/18 06:35 153/69 09/22/18 04:00 71 09/22/18 04:00 Nasal Cannula 2.0 09/22/18 04:00 98.3 78 20 153/69 (97) 100 09/22/18 00:00 Nasal Cannula 2.0 09/22/18 00:00 87 09/22/18 00:00 98.4 80 20 138/77 (97) 98 09/21/18 21:18 96 154/73 09/21/18 21:18 154/73 09/21/18 20:14 96 Nasal Cannula 2.0 28 09/21/18 20:14 Nasal Cannula 2.0 28 09/21/18 20:14 96 20 Nasal Cannula 2.0 28 09/21/18 20:00 82 09/21/18 20:00 98.3 79 24 154/73 (100) 96 09/21/18 20:00 Nasal Cannula 2.0 09/21/18 16:00 Nasal Cannula 2.0 09/21/18 16:00 97.8 82 21 161/72 (101) 100 09/21/18 16:00 79 09/21/18 13:56 157/71 09/21/18 13:55 157/71 09/21/18 12:00 74 09/21/18 12:00 Nasal Cannula 2.0 09/21/18 11:43 97.9 77 21 129/75 (93) 100 Intake and Output 09/21/18 09/22/18 19:00 07:00 Intake Total 150 ml 150 ml Output Total 2600 ml 150 ml Balance -2450 ml 0 ml Intake Oral 150 ml 150 ml Output Urine Total 100 ml 150 ml Hemodialysis UF 2500 ml # Voids 2 Height (Feet): 5 Height (Inches): 6.00 Weight (Pounds): 134 Objective General Appearance: WD/WN, alert Neck: supple Cardiovascular: normal rate Respiratory/Chest: crackles/rales Abdomen: normal bowel sounds, non tender Extremities: normal range of motion Edema: no edema noted Arm (L), no edema noted Arm (R), no edema noted Leg (L), no edema noted Leg (R), no edema noted Pedal (L), no edema noted Pedal (R), no edema noted Generalized Bulmaro Perez MD Sep 22, 2018 10:06
[2018-09-22] MEDS ORDERED: Nitroglycerin Patch 0.4mg TDERMAL SCH (10:15)
--- NOTE | 2018-09-22 13:06 | Nephrology Progress Note ---
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 Pulm HTN Now DNR Plan HD 09/21 ASA Nitrate adjust BP meds- per orders Subjective ROS Limited/Unobtainable: No Constitutional: Reports: malaise Objective Objective Last 24 Hour Vital Signs Date Time Temp Pulse Resp B/P (MAP) Pulse Ox O2 Delivery O2 Flow Rate FiO2 09/22/18 12:00 96.6 72 20 141/62 (88) 100 09/22/18 09:53 142/78 09/22/18 09:00 Nasal Cannula 2.0 09/22/18 08:40 98.3 83 20 141/69 (93) 92 09/22/18 08:06 80 141/60 09/22/18 08:00 75 09/22/18 08:00 97.4 80 20 141/60 (87) 97 09/22/18 06:35 153/69 09/22/18 04:00 71 09/22/18 04:00 Nasal Cannula 2.0 09/22/18 04:00 98.3 78 20 153/69 (97) 100 09/22/18 00:00 Nasal Cannula 2.0 09/22/18 00:00 87 09/22/18 00:00 98.4 80 20 138/77 (97) 98 09/21/18 21:18 96 154/73 09/21/18 21:18 154/73 09/21/18 20:14 96 Nasal Cannula 2.0 28 09/21/18 20:14 Nasal Cannula 2.0 28 09/21/18 20:14 96 20 Nasal Cannula 2.0 28 09/21/18 20:00 82 09/21/18 20:00 98.3 79 24 154/73 (100) 96 09/21/18 20:00 Nasal Cannula 2.0 09/21/18 16:00 Nasal Cannula 2.0 09/21/18 16:00 97.8 82 21 161/72 (101) 100 09/21/18 16:00 79 09/21/18 13:56 157/71 09/21/18 13:55 157/71 Intake and Output 09/21/18 09/22/18 19:00 07:00 Intake Total 150 ml 150 ml Output Total 2600 ml 150 ml Balance -2450 ml 0 ml Intake Oral 150 ml 150 ml Output Urine Total 100 ml 150 ml Hemodialysis UF 2500 ml # Voids 2 Height (Feet): 5 Height (Inches): 6.00 Weight (Pounds): 134 General Appearance: no apparent distress Cardiovascular: arrhythmia Respiratory/Chest: decreased breath sounds Abdomen: soft Ady Gómez MD Sep 22, 2018 13:06
[2018-09-22] MEDS ORDERED: Carvedilol 12.5mg tab ORAL SCH (21:00)
[2018-09-22] MEDS: Carvedilol 25mg Tab ORAL SCH (21:13)
[2018-09-22] MEDS: Dyna-Hex 2% Top Sol 2oz TOPIC SCH (21:18)
[2018-09-23] VITALS: BP 156/63
--- NOTE | 2018-09-23 02:00 | Progress Note ---
DATE: 09/22/2018 CARDIOLOGY PROGRESS NOTE: SUBJECTIVE: The patient has less shortness of breath. He remains on oxygen. OBJECTIVE: VITAL SIGNS: Blood pressure 142/78, pulse 83, and respirations 20. Chest x-ray with pulmonary edema and small effusions. LUNGS: Diminished breath sounds. Few rales. HEART: Regularly irregular rhythm. Normal S1, S2. No rub. A 1/6 systolic apical murmur. ABDOMEN: Soft. EXTREMITIES: Trace edema. LABORATORY DATA: No new laboratories. IMPRESSION: 1. Acute myocardial ischemia and possible non-ST elevation infarction. 2. Severe hypoxia. 3. Acute on chronic diastolic and systolic congestive heart failure. 4. End-stage renal disease. 5. Pericardial effusion. 6. Atrial fibrillation, rate controlled. PLAN: 1. Hemodialysis with ultrafiltration. 2. Epogen. 3. Oxygenation. 4. Maximize anti-failure therapy avoiding hypotension as a side effect. 5. Continue anti-platelet therapy and beta-blockade. Luis Jade M.D. DR: EVELYNE JOB#: [id number] CC:
--- NOTE | 2018-09-23 02:15 | Consultation ---
DATE OF CONSULTATION: 09/19/2018 CARDIOLOGY CONSULTATION CONSULTING PHYSICIAN: Luis Jade M.D. REQUESTING PHYSICIAN: Bulmaro Perez M.D. REQUESTING REASON: Congestive heart failure, pericardial effusion, and atrial fibrillation. HISTORY OF PRESENT ILLNESS: This is an 83-year-old male with end-stage renal disease, on hemodialysis, who became increasingly short of breath despite dialysis for 5 hours early this morning. The patient was recently hospitalized with complications of a myocardial infarction with an associated cardiac arrest. He also was noted to have pericardial effusion of moderate size at that time and treatment has been to continue hemodialysis with ultrafiltration. The patient is compliant with medications. He recently was at a senior care facility, however, last week, family members took him home and it is unclear how compliant at home he has been with therapy including medications and diet. MEDICATIONS: The patient's medications prior to admission as prescribed were reviewed and reconciled. ALLERGIES TO MEDICATIONS: None. PAST MEDICAL HISTORY: Hypertension, pericardial effusion, ischemic cardiomyopathy, COPD, hyperuricemia, history of gout, end-stage renal disease, cerebrovascular disease, history of CVA with dementia, dysphagia, pulmonary hypertension. REVIEW OF SYSTEMS: Not obtainable from the patient. PHYSICAL EXAMINATION: GENERAL: In the emergency room, blood pressure 108/46, pulse 97, respiratory rate 36, oxygen saturation initially 63% and subsequently 99% on BiPAP support. LUNGS: Diminished breath sounds. Scattered rales. HEART: Irregularly irregular rhythm. Normal S1, S2. No rub. ABDOMEN: Soft. EXTREMITIES: No edema. LABORATORY AND DIAGNOSTIC DATA: White count 7.8, hemoglobin 9.2. ABG, pH 7.58, pCO2 of 40, pO2 of 51. Sodium 141, potassium 3.3, bicarbonate 35, BUN 29, creatinine 2.4. Troponin 0.599. Albumin 2.6. Chest x-ray revealed congestive heart failure and small effusions bilaterally. EKG on admission revealed atrial fibrillation with nonspecific ST-T wave changes. IMPRESSION: 1. Acute on chronic systolic and diastolic congestive heart failure. 2. Pericardial effusion. 3. End-stage renal disease. 4. Paroxysmal atrial fibrillation, rate controlled. 5. Hypoxia due to above. 6. Cerebrovascular disease with advanced dementia. 7. Acute myocardial ischemia and possible [id number]-KE-qbjmngoff infarction precipitated by severe hypoxia. 8. Critical and guarded. PLAN: 1. DNR/DNI based on advanced directives. 2. Hemodialysis with ultrafiltration. 3. Oxygen re-supplementation. 4. Maximize anti-failure regimen. 5. No current plan for pericardiocentesis. 6. Monitor clinical parameters. 7. Not a candidate for anticoagulation due to increased bleeding and complication risk. 8. Continue anti-platelet therapy as such and beta-blockade. Luis Jade M.D. DR: Babar JOB#: [id number] CC:
[2018-09-23 04:00] VITALS: BP 134/61
[2018-09-23] MEDS: HydrALAZINE 25mg tab ORAL SCH ×3 (06:08→17:12)
[2018-09-23 07:13] LABS: BASOPHILS % (AUTO) 0.2 % (0.0-2.0); EOSINOPHILS % (AUTO) 2.1 % (0.0-3.0); HEMATOCRIT 25.6 % (42.0-52.0); HEMOGLOBIN 8.3 G/DL (14.2-18.0); LYMPHOCYTES % (AUTO) 14.4 % (20.0-45.0); MEAN CORPUSCULAR VOLUME 100 FL (80-99); MONOCYTES % (AUTO) 7.3 % (1.0-10.0); NEUTROPHILS % (AUTO) 76.1 % (45.0-75.0); PLATELET COUNT 141 K/UL (150-450); RED BLOOD COUNT 2.56 M/UL (4.70-6.10); RED CELL DISTRIBUTION WIDTH 17.5 % (11.6-14.8); WHITE BLOOD COUNT 6.7 K/UL (4.8-10.8)
[2018-09-23 07:44] LABS: ALANINE AMINOTRANSFERASE 18 U/L (12-78); ALBUMIN 2.3 G/DL (3.4-5.0); ALBUMIN/GLOBULIN RATIO 0.6 (1.0-2.7); ALKALINE PHOSPHATASE 144 U/L (46-116); ANION GAP 9 mmol/L (5-15); ASPARTATE AMINO TRANSFERASE 23 U/L (15-37); BILIRUBIN,TOTAL 0.6 MG/DL (0.2-1.0); BLOOD UREA NITROGEN 73 mg/dL (7-18); CALCIUM 8.1 MG/DL (8.5-10.1); CARBON DIOXIDE 32 MMOL/L (21-32); CHLORIDE 97 MMOL/L (98-107); PHOSPHORUS 3.2 MG/DL (2.5-4.9); POTASSIUM 3.8 MMOL/L (3.5-5.1); SODIUM 138 MMOL/L (136-145)
--- NOTE | 2018-09-23 07:58 | Pulmonology Progress Note ---
Assessment/Plan Assessment/Plan IMPRESSION: 1. Acute pulmonary edema with fluid overload. 2. Profound cardiomegaly, likely cardiomyopathy. 3. BPH. 4. End-stage renal disease. 5. Severe protein-calorie malnutrition. 6. Respiratory failure, acute. 7. History of psychosis. 8. History of underlying dementia. 9. Evidence of anemia, likely of chronic disease. 10. Mild thrombocytopenia. PLAN diurese as able cxr not improved recheck in am; if not better, consider CT chest monitor acid base exchange off antibiotics and nontoxic oxygen monitor for change care noted impression, plan, and exam edited and reviewed in detail care discussed with RN Subjective Allergies: Coded Allergies: BANANA (Verified Allergy, Severe, 09/05/18) GIL (Verified Allergy, Severe, 09/05/18) CARROT (Verified Allergy, Severe, 09/05/18) Dairy (Verified Allergy, Severe, 09/05/18) GRAPE (Verified Allergy, Severe, 09/05/18) Pork (Verified Allergy, Severe, 09/05/18) Potato (Verified Allergy, Severe, 08/12/18) Subjective care noted no significant distress at present Objective Last 24 Hour Vital Signs Date Time Temp Pulse Resp B/P (MAP) Pulse Ox O2 Delivery O2 Flow Rate FiO2 09/23/18 06:08 157/71 09/23/18 04:00 97.0 72 20 134/61 (85) 100 09/23/18 04:00 72 09/23/18 00:00 77 09/23/18 00:00 97.4 77 20 156/63 (94) 98 09/22/18 21:47 147/66 09/22/18 21:28 98 20 Nasal Cannula 2.0 28 09/22/18 21:28 98 Nasal Cannula 2.0 28 09/22/18 21:28 Nasal Cannula 2.0 28 09/22/18 21:13 78 151/72 09/22/18 21:00 Nasal Cannula 2.0 09/22/18 20:00 76 09/22/18 20:00 98.0 76 20 151/64 (93) 99 09/22/18 16:00 98.2 71 20 154/68 (96) 95 09/22/18 16:00 80 09/22/18 13:11 144/64 09/22/18 12:00 71 09/22/18 12:00 96.6 72 20 141/62 (88) 100 09/22/18 09:53 142/78 09/22/18 09:00 Nasal Cannula 2.0 09/22/18 08:40 98.3 83 20 141/69 (93) 92 09/22/18 08:06 80 141/60 09/22/18 08:00 75 09/22/18 08:00 97.4 80 20 141/60 (87) 97 Intake and Output 09/22/18 09/23/18 19:00 07:00 Intake Total 390 ml Output Total 100 ml 50 ml Balance 290 ml -50 ml Intake Oral 390 ml Output Urine Total 100 ml 50 ml # Bowel Movements 1 Objective GENERAL: A well-developed male, comfortable at present. No significant distress. NAD HEENT: Negative. Extraocular movements are grossly intact. NECK: Supple. LUNGS: With reduced breath sounds in the apices. some crackles at both bases. CARDIAC: S1 and S2. Slightly distant. Positive gallop. Positive murmur, systolic. ABDOMEN: Soft, nondistended. EXTREMITIES: Without edema. No cyanosis or clubbing. Laboratory Tests 09/22/18 13:38: C-Reactive Protein, Quantitative 4.8H 09/23/18 05:45: White Blood Count 6.7, Red Blood Count 2.56L, Hemoglobin 8.3L, Hematocrit 25.6L , Mean Corpuscular Volume 100H, Mean Corpuscular Hemoglobin 32.3H, Mean Corpuscular Hemoglobin Concent 32.3, Red Cell Distribution Width 17.5H, Platelet Count 141L, Mean Platelet Volume 5.7L, Neutrophils (%) (Auto) 76.1H, Lymphocytes (%) (Auto) 14.4L, Monocytes (%) (Auto) 7.3, Eosinophils (%) (Auto) 2.1, Basophils (%) (Auto) 0.2, Sodium Level 138, Potassium Level 3.8, Chloride Level 97L, Carbon Dioxide Level 32, Anion Gap 9, Blood Urea Nitrogen 73H, Creatinine 5.0H, Estimat Glomerular Filtration Rate , Glucose Level 101, Calcium Level 8.1L, Phosphorus Level 3.2, Magnesium Level 2.0, Total Bilirubin 0.6, Aspartate Amino Transf (AST/SGOT) 23, Alanine Aminotransferase (ALT/SGPT) 18, Alkaline Phosphatase 144H, Troponin I 0.228H, Pro-B-Type Natriuretic Peptide > [id number], Total Protein 6.3L, Albumin 2.3L, Globulin 4.0, Albumin/ Globulin Ratio 0.6L Current Medications Medications (Trade) Dose Ordered Sig/Kris Route PRN Reason Start Time Stop Time Status Last Admin Dose Admin Acetaminophen (Tylenol) 650 mg Q4H PRN ORAL Mild Pain/Temp > 100.5 09/22/18 09:00 10/19/18 08:59 Albuterol/ Ipratropium (Albuterol/ Ipratropium) 3 ml Q4H PRN HHN Shortness of Breath 09/22/18 09:00 09/24/18 08:59 Apixaban (Eliquis) 2.5 mg BID ORAL 09/22/18 18:00 10/20/18 17:59 09/22/18 17:19 Carvedilol (Coreg) 25 mg EVERY 12 HOURS ORAL 09/22/18 21:00 10/21/18 20:59 09/22/18 21:13 Chlorhexidine Gluconate (Anni-Hex 2%) 1 applic DAILY@1999 TOPIC 09/22/18 20:00 10/20/18 19:59 09/22/18 21:18 Docusate Sodium (Colace) 100 mg THREE TIMES A DAY ORAL 09/22/18 13:00 10/19/18 17:59 09/22/18 17:19 Finasteride (Proscar) 5 mg DAILY ORAL 09/23/18 09:00 10/20/18 08:59 Hydralazine HCl (Apresoline) 25 mg Q4H PRN ORAL for BP over 160 syst 09/22/18 09:00 10/20/18 08:59 Hydralazine HCl (Apresoline) 25 mg Q6HR ORAL 09/23/18 06:00 10/23/18 05:59 09/23/18 06:08 Isosorbide Mononitrate (Imdur) 30 mg DAILY ORAL 09/23/18 09:00 10/23/18 08:59 Mirtazapine (Remeron) 15 mg BEDTIME ORAL 09/22/18 21:00 10/20/18 20:59 09/22/18 21:14 Ondansetron HCl (Zofran) 4 mg Q6H PRN IVP Nausea & Vomiting 09/22/18 09:15 10/19/18 15:14 Pantoprazole (Protonix) 40 mg ACBREAKFAST ORAL 09/23/18 06:30 10/20/18 06:29 09/23/18 06:07 Sevelamer Carbonate (Renvela) 800 mg THREE TIMES A DAY ORAL 09/22/18 13:00 10/21/18 12:59 09/22/18 17:19 Juan José Jin MD Sep 23, 2018 07:58
[2018-09-23 08:00] VITALS: BP 130/86
[2018-09-23] MEDS: Carvedilol 25mg Tab ORAL SCH ×2 (08:41→20:34)
[2018-09-23] MEDS: Eliquis 2.5mg tablet ORAL SCH ×2 (08:42→17:11)
[2018-09-23] MEDS: Imdur 30mg tab ORAL SCH (08:42)
[2018-09-23] MEDS: Docusate 100mg cap ORAL SCH ×3 (08:44→17:11)
[2018-09-23] MEDS ORDERED: Aspirin EC 81mg tab ORAL SCH (09:00)
--- NOTE | 2018-09-23 09:33 | General Progress Note ---
Assessment/Plan Problem List: (1) Hypertensive kidney disease ICD Codes: I12.9 - Hypertensive chronic kidney disease with stage 1 through stage 4 chronic kidney disease, or unspecified chronic kidney disease SNOMED: 15208906 (2) Pulmonary hypertension ICD Codes: I27.20 - Pulmonary hypertension, unspecified SNOMED: 98701335 (3) Hypoxemia ICD Codes: R09.02 - Hypoxemia SNOMED: 686583672 (4) COPD (chronic obstructive pulmonary disease) with emphysema ICD Codes: J43.9 - Emphysema, unspecified SNOMED: 64782341 (5) COPD (chronic obstructive pulmonary disease) with chronic bronchitis ICD Codes: J44.9 - Chronic obstructive pulmonary disease, unspecified SNOMED: 565985342 (6) Myocardial injury ICD Codes: S26.90XA - Unspecified injury of heart, unspecified with or without hemopericardium, initial encounter SNOMED: 27165716 (7) Acute respiratory failure ICD Codes: J96.00 - Acute respiratory failure SNOMED: 20357321 (8) ESRD (end stage renal disease) on dialysis ICD Codes: N18.6 - End stage renal failure on dialysis; Z99.2 - Dependence on renal dialysis SNOMED: 304517605 (9) Fluid overload ICD Codes: E87.70 - Hypervolemia SNOMED: 22329159 Assessment/Plan cont HD with UF o2 as needed bipap as needed antiplt rx cards follow up pt requesting to go back to snf once stable for dc Subjective ROS Limited/Unobtainable: No Constitutional: Reports: malaise, weakness HEENT: Reports: no symptoms Cardiovascular: Reports: no symptoms Respiratory: Reports: shortness of breath Gastrointestinal/Abdominal: Reports: no symptoms Genitourinary: Reports: no symptoms Neurologic/Psychiatric: Reports: no symptoms Endocrine: Reports: no symptoms Hematologic/Lymphatic: Reports: no symptoms Allergies: Coded Allergies: BANANA (Verified Allergy, Severe, 09/05/18) GIL (Verified Allergy, Severe, 09/05/18) CARROT (Verified Allergy, Severe, 09/05/18) Dairy (Verified Allergy, Severe, 09/05/18) GRAPE (Verified Allergy, Severe, 09/05/18) Pork (Verified Allergy, Severe, 09/05/18) Potato (Verified Allergy, Severe, 08/12/18) All Systems: reviewed and negative except above Subjective no events. less sob. sitting up right in bed. on o2. cxr still with pulm infil/ chf Objective Last 24 Hour Vital Signs Date Time Temp Pulse Resp B/P (MAP) Pulse Ox O2 Delivery O2 Flow Rate FiO2 09/23/18 08:42 130/86 09/23/18 08:41 74 130/86 09/23/18 08:00 98.0 74 20 130/86 (101) 100 09/23/18 07:35 96 21 Nasal Cannula 2.0 28 09/23/18 07:35 96 Nasal Cannula 2.0 28 09/23/18 07:35 Nasal Cannula 2.0 28 09/23/18 06:08 157/71 09/23/18 04:00 97.0 72 20 134/61 (85) 100 09/23/18 04:00 72 09/23/18 00:00 77 09/23/18 00:00 97.4 77 20 156/63 (94) 98 09/22/18 21:47 147/66 09/22/18 21:28 98 20 Nasal Cannula 2.0 28 09/22/18 21:28 98 Nasal Cannula 2.0 28 09/22/18 21:28 Nasal Cannula 2.0 28 09/22/18 21:13 78 151/72 09/22/18 21:00 Nasal Cannula 2.0 09/22/18 20:00 76 09/22/18 20:00 98.0 76 20 151/64 (93) 99 09/22/18 16:00 98.2 71 20 154/68 (96) 95 09/22/18 16:00 80 09/22/18 13:11 144/64 09/22/18 12:00 71 09/22/18 12:00 96.6 72 20 141/62 (88) 100 09/22/18 09:53 142/78 Intake and Output 09/22/18 09/23/18 19:00 07:00 Intake Total 390 ml Output Total 100 ml 50 ml Balance 290 ml -50 ml Intake Oral 390 ml Output Urine Total 100 ml 50 ml # Bowel Movements 1 Laboratory Tests 09/22/18 13:38: C-Reactive Protein, Quantitative 4.8H 09/23/18 05:45: White Blood Count 6.7, Red Blood Count 2.56L, Hemoglobin 8.3L, Hematocrit 25.6L , Mean Corpuscular Volume 100H, Mean Corpuscular Hemoglobin 32.3H, Mean Corpuscular Hemoglobin Concent 32.3, Red Cell Distribution Width 17.5H, Platelet Count 141L, Mean Platelet Volume 5.7L, Neutrophils (%) (Auto) 76.1H, Lymphocytes (%) (Auto) 14.4L, Monocytes (%) (Auto) 7.3, Eosinophils (%) (Auto) 2.1, Basophils (%) (Auto) 0.2, Sodium Level 138, Potassium Level 3.8, Chloride Level 97L, Carbon Dioxide Level 32, Anion Gap 9, Blood Urea Nitrogen 73H, Creatinine 5.0H, Estimat Glomerular Filtration Rate , Glucose Level 101, Calcium Level 8.1L, Phosphorus Level 3.2, Magnesium Level 2.0, Total Bilirubin 0.6, Aspartate Amino Transf (AST/SGOT) 23, Alanine Aminotransferase (ALT/SGPT) 18, Alkaline Phosphatase 144H, Troponin I 0.228H, Pro-B-Type Natriuretic Peptide > 02943H, Total Protein 6.3L, Albumin 2.3L, Globulin 4.0, Albumin/ Globulin Ratio 0.6L Height (Feet): 5 Height (Inches): 6.00 Weight (Pounds): 141 Objective General Appearance: WD/WN, alert Neck: supple Cardiovascular: normal rate Respiratory/Chest: crackles/rales Abdomen: normal bowel sounds, non tender Extremities: normal range of motion Edema: no edema noted Arm (L), no edema noted Arm (R), no edema noted Leg (L), no edema noted Leg (R), no edema noted Pedal (L), no edema noted Pedal (R), no edema noted Generalized Bulmaro Perez MD Sep 23, 2018 09:33
[2018-09-23 12:00] VITALS: BP 118/54
--- NOTE | 2018-09-23 15:17 | Nephrology Progress Note ---
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 Pulm HTN Now DNR Plan HD 09/24 ASA Nitrate adjust BP meds- per orders Subjective ROS Limited/Unobtainable: No Constitutional: Reports: malaise Objective Objective Last 24 Hour Vital Signs Date Time Temp Pulse Resp B/P (MAP) Pulse Ox O2 Delivery O2 Flow Rate FiO2 09/23/18 12:24 118/54 09/23/18 12:00 97.8 71 20 118/54 (75) 100 09/23/18 12:00 70 09/23/18 09:00 Nasal Cannula 2.0 09/23/18 08:42 130/86 09/23/18 08:41 74 130/86 09/23/18 08:00 98.0 74 20 130/86 (101) 100 09/23/18 07:35 96 21 Nasal Cannula 2.0 28 09/23/18 07:35 96 Nasal Cannula 2.0 28 09/23/18 07:35 Nasal Cannula 2.0 28 09/23/18 06:08 157/71 09/23/18 04:00 97.0 72 20 134/61 (85) 100 09/23/18 04:00 72 09/23/18 00:00 77 09/23/18 00:00 97.4 77 20 156/63 (94) 98 09/22/18 21:47 147/66 09/22/18 21:28 98 20 Nasal Cannula 2.0 28 09/22/18 21:28 98 Nasal Cannula 2.0 28 09/22/18 21:28 Nasal Cannula 2.0 28 09/22/18 21:13 78 151/72 09/22/18 21:00 Nasal Cannula 2.0 09/22/18 20:00 76 09/22/18 20:00 98.0 76 20 151/64 (93) 99 09/22/18 16:00 98.2 71 20 154/68 (96) 95 09/22/18 16:00 80 Intake and Output 09/22/18 09/23/18 19:00 07:00 Intake Total 390 ml Output Total 100 ml 50 ml Balance 290 ml -50 ml Intake Oral 390 ml Output Urine Total 100 ml 50 ml # Bowel Movements 1 Laboratory Tests 09/23/18 05:45: White Blood Count 6.7, Red Blood Count 2.56L, Hemoglobin 8.3L, Hematocrit 25.6L , Mean Corpuscular Volume 100H, Mean Corpuscular Hemoglobin 32.3H, Mean Corpuscular Hemoglobin Concent 32.3, Red Cell Distribution Width 17.5H, Platelet Count 141L, Mean Platelet Volume 5.7L, Neutrophils (%) (Auto) 76.1H, Lymphocytes (%) (Auto) 14.4L, Monocytes (%) (Auto) 7.3, Eosinophils (%) (Auto) 2.1, Basophils (%) (Auto) 0.2, Sodium Level 138, Potassium Level 3.8, Chloride Level 97L, Carbon Dioxide Level 32, Anion Gap 9, Blood Urea Nitrogen 73H, Creatinine 5.0H, Estimat Glomerular Filtration Rate , Glucose Level 101, Calcium Level 8.1L, Phosphorus Level 3.2, Magnesium Level 2.0, Total Bilirubin 0.6, Aspartate Amino Transf (AST/SGOT) 23, Alanine Aminotransferase (ALT/SGPT) 18, Alkaline Phosphatase 144H, Troponin I 0.228H, Pro-B-Type Natriuretic Peptide > 66583R, Total Protein 6.3L, Albumin 2.3L, Globulin 4.0, Albumin/ Globulin Ratio 0.6L Height (Feet): 5 Height (Inches): 6.00 Weight (Pounds): 141 General Appearance: no apparent distress Respiratory/Chest: decreased breath sounds Abdomen: soft Objective no change Ady Gómez MD Sep 23, 2018 15:17
[2018-09-23 16:00] VITALS: BP 124/51
[2018-09-23 20:00] VITALS: BP 140/61
[2018-09-23] MEDS: Dyna-Hex 2% Top Sol 2oz TOPIC SCH (20:34)
[2018-09-24] VITALS: BP 143/56
[2018-09-24] MEDS: HydrALAZINE 25mg tab ORAL SCH ×4 (01:19→17:31)
--- NOTE | 2018-09-24 02:30 | Progress Note ---
DATE: 09/23/2018 CARDIOLOGY PROGRESS NOTE SUBJECTIVE: The patient still with shortness of breath. No chest pain. OBJECTIVE: VITAL SIGNS: Blood pressure 118/54, pulse 71, respiratory rate 20. Monitored rhythm, atrial fibrillation. HEENT: Jugular venous pressure normal. No Kussmaul sign. LUNGS: Diminished breath sounds. Few rales. CARDIAC: Irregularly irregular rhythm. Normal S1, S2. A 1/6 systolic murmur at apex. ABDOMEN: Soft, nontender. EXTREMITIES: Trace edema noted. LABORATORY DATA: White count 6.7, hemoglobin 8.3. Troponin 0.228. Potassium 3.8, albumin 2.3. IMPRESSION: 1. Acute on chronic diastolic congestive heart failure. 2. Acute myocardial infarction, non-ST elevation type. 3. End-stage renal disease, on hemodialysis. 4. Pulmonary hypertension. 5. Hypoxia. 6. COPD. 7. Colonization of the gastrointestinal tract. PLAN: 1. Continue beta-umair. 2. Continue full anticoagulation for cardioembolic prophylaxis. 3. No need for aspirin in view of increased bleeding risk. 4. Maintain nitrates. 5. Hemodialysis with ultrafiltration for volume management. Luis Jade M.D. DR: JAMES JOB#: [id number] CC:
[2018-09-24 04:00] VITALS: BP 141/62
[2018-09-24 08:15] VITALS: BP 153/73
[2018-09-24] MEDS: Carvedilol 25mg Tab ORAL SCH ×2 (08:34→21:04)
[2018-09-24] MEDS: Imdur 30mg tab ORAL SCH (08:34)
[2018-09-24] MEDS: Eliquis 2.5mg tablet ORAL SCH ×2 (08:37→17:31)
[2018-09-24] MEDS: Docusate 100mg cap ORAL SCH ×3 (08:37→17:31)
--- NOTE | 2018-09-24 10:43 | Nephrology Progress Note ---
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 Pulm HTN Now DNR Plan HD 09/24 in process ASA Nitrate adjust BP meds- per orders DC to ECF after HD Subjective ROS Limited/Unobtainable: No Objective Objective Last 24 Hour Vital Signs Date Time Temp Pulse Resp B/P (MAP) Pulse Ox O2 Delivery O2 Flow Rate FiO2 09/24/18 10:27 Nasal Cannula 5.0 09/24/18 09:14 Nasal Cannula 2.0 09/24/18 08:34 153/73 09/24/18 08:34 74 153/73 09/24/18 08:15 97.0 74 18 153/73 (99) 99 09/24/18 07:54 69 09/24/18 05:59 141/62 09/24/18 04:42 82 09/24/18 04:00 97.9 79 18 141/62 (88) 99 09/24/18 01:19 143/56 09/24/18 00:00 97.8 67 20 143/56 (85) 96 71 09/23/18 23:20 76 09/23/18 21:15 100 Nasal Cannula 2.0 28 09/23/18 21:15 75 18 Nasal Cannula 2.0 28 09/23/18 21:15 Nasal Cannula 2.0 28 09/23/18 21:00 Nasal Cannula 2.0 09/23/18 20:34 75 140/61 09/23/18 20:00 98.2 67 20 140/61 (87) 100 75 09/23/18 19:16 75 09/23/18 17:12 124/51 09/23/18 16:00 68 09/23/18 16:00 98.1 67 20 124/51 (75) 100 09/23/18 12:24 118/54 09/23/18 12:00 97.8 71 20 118/54 (75) 100 09/23/18 12:00 70 Intake and Output 09/23/18 09/24/18 19:00 07:00 Intake Total 360 ml Output Total 150 ml Balance 210 ml Intake Oral 360 ml Output Urine Total 150 ml Current Medications Medications (Trade) Dose Ordered Sig/Kris Route PRN Reason Start Time Stop Time Status Last Admin Dose Admin Acetaminophen (Tylenol) 650 mg Q4H PRN ORAL Mild Pain/Temp > 100.5 09/22/18 09:00 10/19/18 08:59 Apixaban (Eliquis) 2.5 mg BID ORAL 09/22/18 18:00 10/20/18 17:59 09/24/18 08:37 Carvedilol (Coreg) 25 mg EVERY 12 HOURS ORAL 09/22/18 21:00 10/21/18 20:59 09/23/18 20:34 Chlorhexidine Gluconate (Anni-Hex 2%) 1 applic DAILY@1999 TOPIC 09/22/18 20:00 10/20/18 19:59 09/23/18 20:34 Docusate Sodium (Colace) 100 mg THREE TIMES A DAY ORAL 09/22/18 13:00 10/19/18 17:59 09/24/18 08:37 Finasteride (Proscar) 5 mg DAILY ORAL 09/23/18 09:00 10/20/18 08:59 09/24/18 08:37 Hydralazine HCl (Apresoline) 25 mg Q4H PRN ORAL for BP over 160 syst 09/22/18 09:00 10/20/18 08:59 Hydralazine HCl (Apresoline) 25 mg Q6HR ORAL 09/23/18 06:00 10/23/18 05:59 09/24/18 05:59 Isosorbide Mononitrate (Imdur) 30 mg DAILY ORAL 09/23/18 09:00 10/23/18 08:59 09/23/18 08:42 Mirtazapine (Remeron) 15 mg BEDTIME ORAL 09/22/18 21:00 10/20/18 20:59 09/23/18 20:34 Ondansetron HCl (Zofran) 4 mg Q6H PRN IVP Nausea & Vomiting 09/22/18 09:15 10/19/18 15:14 Pantoprazole (Protonix) 40 mg ACBREAKFAST ORAL 09/23/18 06:30 10/20/18 06:29 09/24/18 05:58 Sevelamer Carbonate (Renvela) 800 mg THREE TIMES A DAY ORAL 09/22/18 13:00 10/21/18 12:59 09/24/18 08:37 Height (Feet): 5 Height (Inches): 6.00 Weight (Pounds): 137 General Appearance: no apparent distress Cardiovascular: regular rhythm Respiratory/Chest: decreased breath sounds Abdomen: soft Objective no change Ady Gómez MD Sep 24, 2018 10:43
[2018-09-24 12:10] VITALS: BP 125/73
--- NOTE | 2018-09-24 13:54 | Pulmonology Progress Note ---
Assessment/Plan Assessment/Plan IMPRESSION: 1. Acute pulmonary edema with fluid overload. 2. Profound cardiomegaly, likely cardiomyopathy. 3. BPH. 4. End-stage renal disease. 5. Severe protein-calorie malnutrition. 6. Respiratory failure, acute. 7. History of psychosis. 8. History of underlying dementia. 9. Evidence of anemia, likely of chronic disease. 10. Mild thrombocytopenia. PLAN diurese as able cxr same consider CT chest monitor acid base exchange off antibiotics and nontoxic oxygen monitor for change care noted and reviewed impression, plan, and exam edited and reviewed in detail care discussed with RN Subjective ROS Limited/Unobtainable: Yes Allergies: Coded Allergies: BANANA (Verified Allergy, Severe, 09/05/18) GIL (Verified Allergy, Severe, 09/05/18) CARROT (Verified Allergy, Severe, 09/05/18) Dairy (Verified Allergy, Severe, 09/05/18) GRAPE (Verified Allergy, Severe, 09/05/18) Pork (Verified Allergy, Severe, 09/05/18) Potato (Verified Allergy, Severe, 08/12/18) Subjective care noted no significant distress at present Objective Last 24 Hour Vital Signs Date Time Temp Pulse Resp B/P (MAP) Pulse Ox O2 Delivery O2 Flow Rate FiO2 09/24/18 12:46 125/73 09/24/18 12:10 97.2 73 18 125/73 (90) 99 09/24/18 11:56 99 Nasal Cannula 2.0 28 09/24/18 11:56 7 18 Nasal Cannula 2.0 28 09/24/18 11:56 Nasal Cannula 2.0 28 09/24/18 10:27 Nasal Cannula 5.0 09/24/18 09:14 Nasal Cannula 2.0 09/24/18 08:34 153/73 09/24/18 08:34 74 153/73 09/24/18 08:15 97.0 74 18 153/73 (99) 99 09/24/18 07:54 69 09/24/18 05:59 141/62 09/24/18 04:42 82 09/24/18 04:00 97.9 79 18 141/62 (88) 99 09/24/18 01:19 143/56 09/24/18 00:00 97.8 67 20 143/56 (85) 96 71 09/23/18 23:20 76 09/23/18 21:15 100 Nasal Cannula 2.0 28 09/23/18 21:15 75 18 Nasal Cannula 2.0 28 09/23/18 21:15 Nasal Cannula 2.0 28 09/23/18 21:00 Nasal Cannula 2.0 09/23/18 20:34 75 140/61 09/23/18 20:00 98.2 67 20 140/61 (87) 100 75 09/23/18 19:16 75 09/23/18 17:12 124/51 09/23/18 16:00 68 09/23/18 16:00 98.1 67 20 124/51 (75) 100 Intake and Output 09/23/18 09/24/18 19:00 07:00 Intake Total 360 ml Output Total 150 ml Balance 210 ml Intake Oral 360 ml Output Urine Total 150 ml Objective GENERAL: A well-developed male, comfortable at present. No significant distress. NAD HEENT: Negative. Extraocular movements are grossly intact. NECK: Supple. LUNGS: With reduced breath sounds in the apices. some crackles at both bases. CARDIAC: S1 and S2. Slightly distant. Positive gallop. Positive murmur, systolic. ABDOMEN: Soft, nondistended. EXTREMITIES: Without edema. No cyanosis or clubbing. Current Medications Medications (Trade) Dose Ordered Sig/Kris Route PRN Reason Start Time Stop Time Status Last Admin Dose Admin Acetaminophen (Tylenol) 650 mg Q4H PRN ORAL Mild Pain/Temp > 100.5 09/22/18 09:00 10/19/18 08:59 Apixaban (Eliquis) 2.5 mg BID ORAL 09/22/18 18:00 10/20/18 17:59 09/24/18 08:37 Carvedilol (Coreg) 25 mg EVERY 12 HOURS ORAL 09/22/18 21:00 10/21/18 20:59 09/23/18 20:34 Chlorhexidine Gluconate (Anni-Hex 2%) 1 applic DAILY@1999 TOPIC 09/22/18 20:00 10/20/18 19:59 09/23/18 20:34 Docusate Sodium (Colace) 100 mg THREE TIMES A DAY ORAL 09/22/18 13:00 10/19/18 17:59 09/24/18 12:46 Finasteride (Proscar) 5 mg DAILY ORAL 09/23/18 09:00 10/20/18 08:59 09/24/18 08:37 Hydralazine HCl (Apresoline) 25 mg Q4H PRN ORAL for BP over 160 syst 09/22/18 09:00 10/20/18 08:59 Hydralazine HCl (Apresoline) 25 mg Q6HR ORAL 09/23/18 06:00 10/23/18 05:59 09/24/18 12:46 Isosorbide Mononitrate (Imdur) 30 mg DAILY ORAL 09/23/18 09:00 10/23/18 08:59 09/23/18 08:42 Mirtazapine (Remeron) 15 mg BEDTIME ORAL 09/22/18 21:00 10/20/18 20:59 09/23/18 20:34 Ondansetron HCl (Zofran) 4 mg Q6H PRN IVP Nausea & Vomiting 09/22/18 09:15 10/19/18 15:14 Pantoprazole (Protonix) 40 mg ACBREAKFAST ORAL 09/23/18 06:30 10/20/18 06:29 09/24/18 05:58 Sevelamer Carbonate (Renvela) 800 mg THREE TIMES A DAY ORAL 09/22/18 13:00 10/21/18 12:59 09/24/18 12:46 Juan José Jin MD Sep 24, 2018 13:54
[2018-09-24 15:32] VITALS: BP 137/59
--- NOTE | 2018-09-24 16:03 | General Progress Note ---
Assessment/Plan Problem List: (1) Hypertensive kidney disease ICD Codes: I12.9 - Hypertensive chronic kidney disease with stage 1 through stage 4 chronic kidney disease, or unspecified chronic kidney disease SNOMED: 77113068 (2) Pulmonary hypertension ICD Codes: I27.20 - Pulmonary hypertension, unspecified SNOMED: 38899524 (3) Hypoxemia ICD Codes: R09.02 - Hypoxemia SNOMED: 191586484 (4) COPD (chronic obstructive pulmonary disease) with emphysema ICD Codes: J43.9 - Emphysema, unspecified SNOMED: 73450590 (5) COPD (chronic obstructive pulmonary disease) with chronic bronchitis ICD Codes: J44.9 - Chronic obstructive pulmonary disease, unspecified SNOMED: 165081746 (6) Myocardial injury ICD Codes: S26.90XA - Unspecified injury of heart, unspecified with or without hemopericardium, initial encounter SNOMED: 77992238 (7) Acute respiratory failure ICD Codes: J96.00 - Acute respiratory failure SNOMED: 57742693 (8) ESRD (end stage renal disease) on dialysis ICD Codes: N18.6 - End stage renal failure on dialysis; Z99.2 - Dependence on renal dialysis SNOMED: 782153096 (9) Fluid overload ICD Codes: E87.70 - Hypervolemia SNOMED: 56011130 Status: stable, progressing Assessment/Plan cont HD with UF o2 as needed bipap as needed antiplt rx cards follow up pt requesting to go back to snf once stable for dc Subjective ROS Limited/Unobtainable: Yes Constitutional: Reports: malaise, weakness HEENT: Reports: no symptoms Cardiovascular: Reports: no symptoms Respiratory: Reports: shortness of breath Gastrointestinal/Abdominal: Reports: no symptoms Genitourinary: Reports: no symptoms Neurologic/Psychiatric: Reports: no symptoms Endocrine: Reports: no symptoms Hematologic/Lymphatic: Reports: anemia Allergies: Coded Allergies: BANANA (Verified Allergy, Severe, 09/05/18) GIL (Verified Allergy, Severe, 09/05/18) CARROT (Verified Allergy, Severe, 09/05/18) Dairy (Verified Allergy, Severe, 09/05/18) GRAPE (Verified Allergy, Severe, 09/05/18) Pork (Verified Allergy, Severe, 09/05/18) Potato (Verified Allergy, Severe, 08/12/18) All Systems: reviewed and negative except above Subjective no events. less sob. sitting up right in bed. on o2. cxr still with pulm infil/ chf. due for HD today. all noted. Objective Last 24 Hour Vital Signs Date Time Temp Pulse Resp B/P (MAP) Pulse Ox O2 Delivery O2 Flow Rate FiO2 09/24/18 15:32 97.1 66 18 137/59 (85) 98 09/24/18 12:46 125/73 09/24/18 12:10 97.2 73 18 125/73 (90) 99 09/24/18 12:00 71 09/24/18 11:56 99 Nasal Cannula 2.0 28 09/24/18 11:56 7 18 Nasal Cannula 2.0 28 09/24/18 11:56 Nasal Cannula 2.0 28 09/24/18 10:27 Nasal Cannula 5.0 09/24/18 09:14 Nasal Cannula 2.0 09/24/18 08:34 153/73 09/24/18 08:34 74 153/73 09/24/18 08:15 97.0 74 18 153/73 (99) 99 09/24/18 07:54 69 09/24/18 05:59 141/62 09/24/18 04:42 82 09/24/18 04:00 97.9 79 18 141/62 (88) 99 09/24/18 01:19 143/56 09/24/18 00:00 97.8 67 20 143/56 (85) 96 71 09/23/18 23:20 76 09/23/18 21:15 100 Nasal Cannula 2.0 28 09/23/18 21:15 75 18 Nasal Cannula 2.0 28 09/23/18 21:15 Nasal Cannula 2.0 28 09/23/18 21:00 Nasal Cannula 2.0 09/23/18 20:34 75 140/61 09/23/18 20:00 98.2 67 20 140/61 (87) 100 75 09/23/18 19:16 75 09/23/18 17:12 124/51 Intake and Output 09/23/18 09/24/18 19:00 07:00 Intake Total 360 ml Output Total 150 ml Balance 210 ml Intake Oral 360 ml Output Urine Total 150 ml Height (Feet): 5 Height (Inches): 6.00 Weight (Pounds): 137 Objective General Appearance: WD/WN, alert Neck: supple Cardiovascular: normal rate Respiratory/Chest: crackles/rales Abdomen: normal bowel sounds, non tender Extremities: normal range of motion Edema: no edema noted Arm (L), no edema noted Arm (R), no edema noted Leg (L), no edema noted Leg (R), no edema noted Pedal (L), no edema noted Pedal (R), no edema noted Generalized Bulmaro Perez MD Sep 24, 2018 16:03
[2018-09-24 20:00] VITALS: BP 134/59
[2018-09-24] MEDS: Dyna-Hex 2% Top Sol 2oz TOPIC SCH (21:04)
[2018-09-25] VITALS: BP 124/76
[2018-09-25] MEDS: HydrALAZINE 25mg tab ORAL SCH ×4 (00:04→17:50)
[2018-09-25 04:00] VITALS: BP 143/63
[2018-09-25 08:00] VITALS: BP 132/54
[2018-09-25] MEDS: Docusate 100mg cap ORAL SCH ×3 (08:30→17:50)
[2018-09-25] MEDS: Eliquis 2.5mg tablet ORAL SCH ×2 (08:30→17:50)
[2018-09-25] MEDS: Imdur 30mg tab ORAL SCH (08:30)
[2018-09-25] MEDS: Carvedilol 25mg Tab ORAL SCH ×2 (08:30→20:27)
--- NOTE | 2018-09-25 10:44 | Nephrology Progress Note ---
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 Pulm HTN Now DNR Plan HD 09/24 next 09/26 ASA Nitrate adjust BP meds- per orders DC to ECF is being processed Subjective ROS Limited/Unobtainable: No Objective Objective Last 24 Hour Vital Signs Date Time Temp Pulse Resp B/P (MAP) Pulse Ox O2 Delivery O2 Flow Rate FiO2 09/25/18 09:16 Nasal Cannula 2.0 09/25/18 08:30 132/54 09/25/18 08:30 78 132/54 09/25/18 08:00 97.6 78 19 132/54 (80) 98 09/25/18 05:33 143/63 09/25/18 04:00 97.0 83 19 143/63 (89) 98 09/25/18 04:00 75 09/25/18 00:04 124/76 09/25/18 00:00 97.3 65 19 124/76 (92) 98 09/25/18 00:00 71 09/24/18 21:15 Nasal Cannula 2.0 28 09/24/18 21:15 68 18 Nasal Cannula 2.0 28 09/24/18 21:15 98 Nasal Cannula 2.0 28 09/24/18 21:04 68 134/59 09/24/18 21:00 Nasal Cannula 2.0 09/24/18 20:00 97.7 68 19 134/59 (84) 100 09/24/18 20:00 67 09/24/18 17:31 137/59 09/24/18 16:12 71 09/24/18 15:32 97.1 66 18 137/59 (85) 98 09/24/18 12:46 125/73 09/24/18 12:10 97.2 73 18 125/73 (90) 99 09/24/18 12:00 71 09/24/18 11:56 99 Nasal Cannula 2.0 28 09/24/18 11:56 7 18 Nasal Cannula 2.0 28 09/24/18 11:56 Nasal Cannula 2.0 28 Intake and Output 09/24/18 09/25/18 18:59 06:59 Intake Total 360 ml Output Total 2050 ml 200 ml Balance -1690 ml -200 ml Intake Oral 360 ml Output Urine Total 50 ml 200 ml Hemodialysis UF 2000 ml # Voids 1 # Bowel Movements 1 Height (Feet): 5 Height (Inches): 6.00 Weight (Pounds): 130 General Appearance: no apparent distress Objective no change Ady Gómez MD Sep 25, 2018 10:44
[2018-09-25 12:05] VITALS: BP 114/52
--- NOTE | 2018-09-25 14:19 | Pulmonology Progress Note ---
Assessment/Plan Assessment/Plan Pulmonary Progress Note Assessment/Plan IMPRESSION: 1. Acute pulmonary edema with fluid overload. 2. Profound cardiomegaly, likely cardiomyopathy. 3. BPH. 4. End-stage renal disease. 5. Severe protein-calorie malnutrition. 6. Respiratory failure, acute. 7. History of psychosis. 8. History of underlying dementia. 9. Evidence of anemia, likely of chronic disease. 10. Mild thrombocytopenia. PLAN diurese as able cxr same consider CT chest monitor acid base exchange off antibiotics and nontoxic oxygen monitor for change care noted and reviewed impression, plan, and exam edited and reviewed in detail care discussed with RN Subjective ROS Limited/Unobtainable: Yes Allergies: Coded Allergies: BANANA (Verified Allergy, Severe, 09/05/18) GIL (Verified Allergy, Severe, 09/05/18) CARROT (Verified Allergy, Severe, 09/05/18) Dairy (Verified Allergy, Severe, 09/05/18) GRAPE (Verified Allergy, Severe, 09/05/18) Pork (Verified Allergy, Severe, 09/05/18) Potato (Verified Allergy, Severe, 08/12/18) Subjective care noted no significant distress at present Objective Vital Signs Noted Objective GENERAL: A well-developed male, comfortable at present. No significant distress. NAD HEENT: Negative. Extraocular movements are grossly intact. NECK: Supple. LUNGS: With reduced breath sounds in the apices. some crackles at both bases. CARDIAC: S1 and S2. Slightly distant. Positive gallop. Positive murmur, systolic. ABDOMEN: Soft, nondistended. EXTREMITIES: Without edema. No cyanosis or clubbing. Current Medications Medications (Trade) Dose Ordered Sig/Kris Route PRN Reason Start Time Stop Time Status Last Admin Dose Admin Acetaminophen (Tylenol) 650 mg Q4H PRN ORAL Mild Pain/Temp > 100.5 09/22/18 09:00 10/19/18 08:59 Apixaban (Eliquis) 2.5 mg BID ORAL 09/22/18 18:00 10/20/18 17:59 09/24/18 08:37 Carvedilol (Coreg) 25 mg EVERY 12 HOURS ORAL 09/22/18 21:00 10/21/18 20:59 09/23/18 20:34 Chlorhexidine Gluconate (Anni-Hex 2%) 1 applic DAILY@1999 TOPIC 09/22/18 20:00 10/20/18 19:59 09/23/18 20:34 Docusate Sodium (Colace) 100 mg THREE TIMES A DAY ORAL 09/22/18 13:00 10/19/18 17:59 09/24/18 12:46 Finasteride (Proscar) 5 mg DAILY ORAL 09/23/18 09:00 10/20/18 08:59 09/24/18 08:37 Hydralazine HCl (Apresoline) 25 mg Q4H PRN ORAL for BP over 160 syst 09/22/18 09:00 10/20/18 08:59 Hydralazine HCl (Apresoline) 25 mg Q6HR ORAL 09/23/18 06:00 10/23/18 05:59 09/24/18 12:46 Isosorbide Mononitrate (Imdur) 30 mg DAILY ORAL 09/23/18 09:00 10/23/18 08:59 09/23/18 08:42 Mirtazapine (Remeron) 15 mg BEDTIME ORAL 09/22/18 21:00 10/20/18 20:59 09/23/18 20:34 Ondansetron HCl (Zofran) 4 mg Q6H PRN IVP Nausea & Vomiting 09/22/18 09:15 10/19/18 15:14 Pantoprazole (Protonix) 40 mg ACBREAKFAST ORAL 09/23/18 06:30 10/20/18 06:29 09/24/18 05:58 Sevelamer Carbonate (Renvela) 800 mg THREE TIMES A DAY ORAL 09/22/18 13:00 10/21/18 12:59 09/24/18 12:46 Subjective ROS Limited/Unobtainable: No Allergies: Coded Allergies: BANANA (Verified Allergy, Severe, 09/05/18) GIL (Verified Allergy, Severe, 09/05/18) CARROT (Verified Allergy, Severe, 09/05/18) Dairy (Verified Allergy, Severe, 09/05/18) GRAPE (Verified Allergy, Severe, 09/05/18) Pork (Verified Allergy, Severe, 09/05/18) Potato (Verified Allergy, Severe, 08/12/18) Objective Last 24 Hour Vital Signs Date Time Temp Pulse Resp B/P (MAP) Pulse Ox O2 Delivery O2 Flow Rate FiO2 09/25/18 13:45 99 Nasal Cannula 2.0 28 09/25/18 13:45 72 18 Nasal Cannula 2.0 28 09/25/18 13:45 Nasal Cannula 2.0 28 09/25/18 12:05 97.8 70 20 114/52 (72) 98 09/25/18 12:00 114/52 09/25/18 12:00 68 09/25/18 09:16 Nasal Cannula 2.0 09/25/18 08:30 132/54 09/25/18 08:30 78 132/54 09/25/18 08:00 72 09/25/18 08:00 97.6 78 19 132/54 (80) 98 09/25/18 05:33 143/63 09/25/18 04:00 97.0 83 19 143/63 (89) 98 09/25/18 04:00 75 09/25/18 00:04 124/76 09/25/18 00:00 97.3 65 19 124/76 (92) 98 09/25/18 00:00 71 09/24/18 21:15 Nasal Cannula 2.0 28 09/24/18 21:15 68 18 Nasal Cannula 2.0 28 09/24/18 21:15 98 Nasal Cannula 2.0 28 09/24/18 21:04 68 134/59 09/24/18 21:00 Nasal Cannula 2.0 09/24/18 20:00 97.7 68 19 134/59 (84) 100 09/24/18 20:00 67 09/24/18 17:31 137/59 09/24/18 16:12 71 09/24/18 15:32 97.1 66 18 137/59 (85) 98 Intake and Output 09/24/18 09/25/18 19:00 07:00 Intake Total 360 ml Output Total 2050 ml 200 ml Balance -1690 ml -200 ml Intake Oral 360 ml Output Urine Total 50 ml 200 ml Hemodialysis UF 2000 ml # Voids 1 # Bowel Movements 1 Current Medications Medications (Trade) Dose Ordered Sig/Kris Route PRN Reason Start Time Stop Time Status Last Admin Dose Admin Acetaminophen (Tylenol) 650 mg Q4H PRN ORAL Mild Pain/Temp > 100.5 09/22/18 09:00 10/19/18 08:59 Apixaban (Eliquis) 2.5 mg BID ORAL 09/22/18 18:00 10/20/18 17:59 09/25/18 08:30 Carvedilol (Coreg) 25 mg EVERY 12 HOURS ORAL 09/22/18 21:00 10/21/18 20:59 09/25/18 08:30 Chlorhexidine Gluconate (Anni-Hex 2%) 1 applic DAILY@2000 TOPIC 09/22/18 20:00 10/20/18 19:59 09/24/18 21:04 Docusate Sodium (Colace) 100 mg THREE TIMES A DAY ORAL 09/22/18 13:00 10/19/18 17:59 09/25/18 08:30 Finasteride (Proscar) 5 mg DAILY ORAL 09/23/18 09:00 10/20/18 08:59 09/25/18 08:30 Hydralazine HCl (Apresoline) 25 mg Q4H PRN ORAL for BP over 160 syst 09/22/18 09:00 10/20/18 08:59 Hydralazine HCl (Apresoline) 25 mg Q6HR ORAL 09/23/18 06:00 10/23/18 05:59 09/25/18 05:33 Isosorbide Mononitrate (Imdur) 30 mg DAILY ORAL 09/23/18 09:00 10/23/18 08:59 09/25/18 08:30 Mirtazapine (Remeron) 15 mg BEDTIME ORAL 09/22/18 21:00 10/20/18 20:59 09/24/18 21:04 Ondansetron HCl (Zofran) 4 mg Q6H PRN IVP Nausea & Vomiting 09/22/18 09:15 10/19/18 15:14 Pantoprazole (Protonix) 40 mg ACBREAKFAST ORAL 09/23/18 06:30 10/20/18 06:29 09/25/18 05:33 Sevelamer Carbonate (Renvela) 800 mg THREE TIMES A DAY ORAL 09/22/18 13:00 10/21/18 12:59 09/25/18 08:30 Luis Pleitez MD Sep 25, 2018 14:19
[2018-09-25 15:49] VITALS: BP 134/57
--- NOTE | 2018-09-25 16:42 | General Progress Note ---
Assessment/Plan Problem List: (1) Hypertensive kidney disease ICD Codes: I12.9 - Hypertensive chronic kidney disease with stage 1 through stage 4 chronic kidney disease, or unspecified chronic kidney disease SNOMED: 41148061 (2) Pulmonary hypertension ICD Codes: I27.20 - Pulmonary hypertension, unspecified SNOMED: 86555819 (3) Hypoxemia ICD Codes: R09.02 - Hypoxemia SNOMED: 983684286 (4) COPD (chronic obstructive pulmonary disease) with emphysema ICD Codes: J43.9 - Emphysema, unspecified SNOMED: 33912283 (5) COPD (chronic obstructive pulmonary disease) with chronic bronchitis ICD Codes: J44.9 - Chronic obstructive pulmonary disease, unspecified SNOMED: 000460148 (6) Myocardial injury ICD Codes: S26.90XA - Unspecified injury of heart, unspecified with or without hemopericardium, initial encounter SNOMED: 47359306 (7) Acute respiratory failure ICD Codes: J96.00 - Acute respiratory failure SNOMED: 67215916 (8) ESRD (end stage renal disease) on dialysis ICD Codes: N18.6 - End stage renal failure on dialysis; Z99.2 - Dependence on renal dialysis SNOMED: 056399730 (9) Fluid overload ICD Codes: E87.70 - Hypervolemia SNOMED: 51059660 Status: stable, progressing Assessment/Plan cont HD with UF o2 as needed antiplt rx cards follow up pt/ot dc planning home tomorrow after HD Subjective ROS Limited/Unobtainable: No Constitutional: Reports: malaise, weakness HEENT: Reports: no symptoms Cardiovascular: Reports: no symptoms Respiratory: Reports: shortness of breath, SOB with excertion Gastrointestinal/Abdominal: Reports: no symptoms Genitourinary: Reports: no symptoms Neurologic/Psychiatric: Reports: no symptoms Endocrine: Reports: no symptoms Hematologic/Lymphatic: Reports: no symptoms Allergies: Coded Allergies: BANANA (Verified Allergy, Severe, 09/05/18) GIL (Verified Allergy, Severe, 09/05/18) CARROT (Verified Allergy, Severe, 09/05/18) Dairy (Verified Allergy, Severe, 09/05/18) GRAPE (Verified Allergy, Severe, 09/05/18) Pork (Verified Allergy, Severe, 09/05/18) Potato (Verified Allergy, Severe, 08/12/18) All Systems: reviewed and negative except above Subjective no events. less sob. sitting up right in bed. on o2. c/o dyspnea with minimal exertion. now doesnt want to go to snf but feels too sob to go home Objective Last 24 Hour Vital Signs Date Time Temp Pulse Resp B/P (MAP) Pulse Ox O2 Delivery O2 Flow Rate FiO2 09/25/18 15:49 97.6 69 19 134/57 (82) 98 09/25/18 13:45 99 Nasal Cannula 2.0 09/25/18 13:45 72 18 Nasal Cannula 2.0 09/25/18 13:45 Nasal Cannula 2.0 09/25/18 12:05 97.8 70 20 114/52 (72) 98 09/25/18 12:00 114/52 09/25/18 12:00 68 09/25/18 09:16 Nasal Cannula 2.0 09/25/18 08:30 132/54 09/25/18 08:30 78 132/54 09/25/18 08:00 72 09/25/18 08:00 97.6 78 19 132/54 (80) 98 09/25/18 05:33 143/63 09/25/18 04:00 97.0 83 19 143/63 (89) 98 09/25/18 04:00 75 09/25/18 00:04 124/76 09/25/18 00:00 97.3 65 19 124/76 (92) 98 09/25/18 00:00 71 09/24/18 21:15 Nasal Cannula 2.0 28 09/24/18 21:15 68 18 Nasal Cannula 2.0 09/24/18 21:15 98 Nasal Cannula 2.0 09/24/18 21:04 68 134/59 09/24/18 21:00 Nasal Cannula 2.0 09/24/18 20:00 97.7 68 19 134/59 (84) 100 09/24/18 20:00 67 09/24/18 17:31 137/59 Intake and Output 09/24/18 09/25/18 19:00 07:00 Intake Total 360 ml Output Total 2050 ml 200 ml Balance -1690 ml -200 ml Intake Oral 360 ml Output Urine Total 50 ml 200 ml Hemodialysis UF 2000 ml # Voids 1 # Bowel Movements 1 Height (Feet): 5 Height (Inches): 6.00 Weight (Pounds): 130 Objective General Appearance: WD/WN, alert Neck: supple Cardiovascular: normal rate Respiratory/Chest: crackles/rales Abdomen: normal bowel sounds, non tender Extremities: normal range of motion Edema: no edema noted Arm (L), no edema noted Arm (R), no edema noted Leg (L), no edema noted Leg (R), no edema noted Pedal (L), no edema noted Pedal (R), no edema noted Generalized Bulmaro Perez MD Sep 25, 2018 16:42
[2018-09-25 20:00] VITALS: BP 115/53
[2018-09-25] MEDS: Dyna-Hex 2% Top Sol 2oz TOPIC SCH (20:27)
[2018-09-26] VITALS: BP 110/61
[2018-09-26] MEDS: HydrALAZINE 25mg tab ORAL SCH ×3 (00:37→12:00)
[2018-09-26 04:00] VITALS: BP 138/56
[2018-09-26 07:36] LABS: BASOPHILS % (AUTO) 0.6 % (0.0-2.0); EOSINOPHILS % (AUTO) 2.2 % (0.0-3.0); HEMATOCRIT 24.8 % (42.0-52.0); LYMPHOCYTES % (AUTO) 18.1 % (20.0-45.0); MEAN CORPUSCULAR VOLUME 99 FL (80-99); MONOCYTES % (AUTO) 10.3 % (1.0-10.0); NEUTROPHILS % (AUTO) 68.8 % (45.0-75.0); PLATELET COUNT 154 K/UL (150-450); RED BLOOD COUNT 2.51 M/UL (4.70-6.10); RED CELL DISTRIBUTION WIDTH 16.8 % (11.6-14.8); WHITE BLOOD COUNT 5.2 K/UL (4.8-10.8)
[2018-09-26 08:00] VITALS: BP 147/63
[2018-09-26 08:18] LABS: ALANINE AMINOTRANSFERASE 16 U/L (12-78); ALBUMIN 2.4 G/DL (3.4-5.0); ALBUMIN/GLOBULIN RATIO 0.6 (1.0-2.7); ALKALINE PHOSPHATASE 128 U/L (46-116); ANION GAP 11 mmol/L (5-15); ASPARTATE AMINO TRANSFERASE 23 U/L (15-37); BILIRUBIN,TOTAL 0.5 MG/DL (0.2-1.0); BLOOD UREA NITROGEN 77 mg/dL (7-18); CALCIUM 8.1 MG/DL (8.5-10.1); CARBON DIOXIDE 28 MMOL/L (21-32); CHLORIDE 96 MMOL/L (98-107); CREATININE 5.8 MG/DL (0.55-1.30); POTASSIUM 4.3 MMOL/L (3.5-5.1); SODIUM 134 MMOL/L (136-145)
--- NOTE | 2018-09-26 09:06 | Pulmonology Progress Note ---
Assessment/Plan Assessment/Plan IMPRESSION: 1. Acute pulmonary edema with fluid overload. 2. Profound cardiomegaly, likely cardiomyopathy. 3. BPH. 4. End-stage renal disease. 5. Severe protein-calorie malnutrition. 6. Respiratory failure, acute. 7. History of psychosis. 8. History of underlying dementia. 9. Evidence of anemia, likely of chronic disease. 10. Mild thrombocytopenia. PLAN diurese as per cardiology cxr same proceed with CT chest monitor acid base exchange off antibiotics and nontoxic oxygen as needed monitor for change care noted and reviewed impression, plan, and exam edited and reviewed in detail care discussed with RN Subjective ROS Limited/Unobtainable: Yes Allergies: Coded Allergies: BANANA (Verified Allergy, Severe, 09/05/18) GIL (Verified Allergy, Severe, 09/05/18) CARROT (Verified Allergy, Severe, 09/05/18) Dairy (Verified Allergy, Severe, 09/05/18) GRAPE (Verified Allergy, Severe, 09/05/18) Pork (Verified Allergy, Severe, 09/05/18) Potato (Verified Allergy, Severe, 08/12/18) Subjective care noted no significant distress at present Objective Last 24 Hour Vital Signs Date Time Temp Pulse Resp B/P (MAP) Pulse Ox O2 Delivery O2 Flow Rate FiO2 09/26/18 08:00 97.8 84 20 147/63 (91) 95 09/26/18 06:29 138/56 09/26/18 04:00 97.1 76 18 138/56 (83) 97 09/26/18 04:00 72 09/26/18 00:37 110/61 09/26/18 00:00 70 09/26/18 00:00 98.0 77 18 110/61 (77) 96 09/25/18 21:00 Nasal Cannula 2.0 09/25/18 20:27 68 115/53 09/25/18 20:00 76 09/25/18 20:00 97.5 68 18 115/53 (73) 98 09/25/18 19:36 98 Nasal Cannula 2.0 28 09/25/18 19:36 70 18 Nasal Cannula 2.0 28 09/25/18 19:36 Nasal Cannula 2.0 28 09/25/18 17:50 134/57 09/25/18 15:49 97.6 69 19 134/57 (82) 98 09/25/18 15:45 73 09/25/18 13:45 99 Nasal Cannula 2.0 28 09/25/18 13:45 72 18 Nasal Cannula 2.0 09/25/18 13:45 Nasal Cannula 2.0 09/25/18 12:05 97.8 70 20 114/52 (72) 98 09/25/18 12:00 114/52 09/25/18 12:00 68 09/25/18 09:16 Nasal Cannula 2.0 Intake and Output 09/25/18 09/26/18 19:00 07:00 Intake Total 760 ml Output Total 100 ml Balance 660 ml Intake Oral 760 ml Output Urine Total 100 ml # Voids 2 Objective GENERAL: A well-developed male, comfortable at present. No significant distress. NAD HEENT: Negative. Extraocular movements are grossly intact. NECK: Supple. LUNGS: With reduced breath sounds in the apices. some crackles at both bases. CARDIAC: S1 and S2. Slightly distant. Positive gallop. Positive murmur, systolic. ABDOMEN: Soft, nondistended. EXTREMITIES: Without edema. No cyanosis or clubbing. Laboratory Tests 09/26/18 06:40: White Blood Count 5.2, Red Blood Count 2.51L, Hemoglobin 8.0L, Hematocrit 24.8L , Mean Corpuscular Volume 99, Mean Corpuscular Hemoglobin 31.9H, Mean Corpuscular Hemoglobin Concent 32.2, Red Cell Distribution Width 16.8H, Platelet Count 154, Mean Platelet Volume 6.0L, Neutrophils (%) (Auto) 68.8, Lymphocytes (%) (Auto) 18.1L, Monocytes (%) (Auto) 10.3H, Eosinophils (%) (Auto ) 2.2, Basophils (%) (Auto) 0.6, Sodium Level 134L, Potassium Level 4.3, Chloride Level 96L, Carbon Dioxide Level 28, Anion Gap 11, Blood Urea Nitrogen 77H, Creatinine 5.8H, Estimat Glomerular Filtration Rate , Glucose Level 101, Calcium Level 8.1L, Phosphorus Level 4.0, Magnesium Level 2.2, Total Bilirubin 0.5, Aspartate Amino Transf (AST/SGOT) 23, Alanine Aminotransferase (ALT/SGPT) 16, Alkaline Phosphatase 128H, C-Reactive Protein, Quantitative 3.7H, Pro-B- Type Natriuretic Peptide > 99300P, Total Protein 6.5, Albumin 2.4L, Globulin 4.1 , Albumin/Globulin Ratio 0.6L Current Medications Medications (Trade) Dose Ordered Sig/Kris Route PRN Reason Start Time Stop Time Status Last Admin Dose Admin Acetaminophen (Tylenol) 650 mg Q4H PRN ORAL Mild Pain/Temp > 100.5 09/22/18 09:00 10/19/18 08:59 Apixaban (Eliquis) 2.5 mg BID ORAL 09/22/18 18:00 10/20/18 17:59 09/25/18 17:50 Carvedilol (Coreg) 25 mg EVERY 12 HOURS ORAL 09/22/18 21:00 10/21/18 20:59 09/25/18 20:27 Chlorhexidine Gluconate (Anni-Hex 2%) 1 applic DAILY@1999 TOPIC 09/22/18 20:00 10/20/18 19:59 09/25/18 20:27 Docusate Sodium (Colace) 100 mg THREE TIMES A DAY ORAL 09/22/18 13:00 10/19/18 17:59 09/25/18 17:50 Finasteride (Proscar) 5 mg DAILY ORAL 09/23/18 09:00 10/20/18 08:59 09/25/18 08:30 Hydralazine HCl (Apresoline) 25 mg Q4H PRN ORAL for BP over 160 syst 09/22/18 09:00 10/20/18 08:59 Hydralazine HCl (Apresoline) 25 mg Q6HR ORAL 09/23/18 06:00 10/23/18 05:59 09/26/18 06:29 Isosorbide Mononitrate (Imdur) 30 mg DAILY ORAL 09/23/18 09:00 10/23/18 08:59 09/25/18 08:30 Mirtazapine (Remeron) 15 mg BEDTIME ORAL 09/22/18 21:00 10/20/18 20:59 09/25/18 20:27 Ondansetron HCl (Zofran) 4 mg Q6H PRN IVP Nausea & Vomiting 09/22/18 09:15 10/19/18 15:14 Pantoprazole (Protonix) 40 mg ACBREAKFAST ORAL 09/23/18 06:30 10/20/18 06:29 09/26/18 06:29 Sevelamer Carbonate (Renvela) 800 mg THREE TIMES A DAY ORAL 09/22/18 13:00 10/21/18 12:59 09/25/18 17:50 Juan José Jin MD Sep 26, 2018 09:06
--- NOTE | 2018-09-26 09:30 | Progress Note ---
DATE: 09/25/2018 CARDIOLOGY PROGRESS NOTE SUBJECTIVE: Less shortness of breath. Ongoing hemodialysis with ultrafiltration, ongoing titration of anti-failure regimen. OBJECTIVE: VITAL SIGNS: Blood pressure 134/57, pulse 68, and respirations 18. NECK: No Kussmaul sign. LUNGS: Diminished breath sounds. Few rales. HEART: Regular rhythm and rate. Normal S1 and S2. No rub. ABDOMEN: Soft. EXTREMITIES: No edema. IMPRESSION: 1. Continued slow, but steady progress. 2. Resolving heart failure exacerbation. 3. Pericardial effusion with no signs of tamponade and expected resolution with continued hemodialysis and ultrafiltration. 4. End-stage renal disease. 5. Pulmonary infiltrates, responding to empiric therapy and medication regimen. PLAN: Plan of care. Disposition discussed. We will follow. Luis Jade M.D. DR: DAVID JOB#: [id number] CC:
[2018-09-26] MEDS: Carvedilol 25mg Tab ORAL SCH (09:32)
[2018-09-26] MEDS: Eliquis 2.5mg tablet ORAL SCH (09:32)
[2018-09-26] MEDS: Docusate 100mg cap ORAL SCH ×2 (09:32→13:23)
[2018-09-26] MEDS: Imdur 30mg tab ORAL SCH (09:32)
--- NOTE | 2018-09-26 09:45 | Progress Note ---
DATE: 09/24/2018 CARDIOLOGY PROGRESS NOTE This is a late entry. SUBJECTIVE: The patient was seen and evaluated. Discharge options discussed with case management and primary care physician. The patient is still short of breath, but improved. The chest x-ray continues to reveal signs of interstitial infiltrates and pulmonary venous congestion. He has a pericardial effusion noted on prior echocardiogram. OBJECTIVE: VITAL SIGNS: Blood pressure 137/59, pulse 66, respiratory rate 18, and afebrile. No Kussmaul sign. LUNGS: Bilateral breath sounds with rales. HEART: Regular rhythm and rate. Normal S1, S2. A 1/6 systolic apical murmur. ABDOMEN: Soft. EXTREMITIES: No edema. LABORATORY DATA: No new laboratories. IMPRESSION: 1. Acute on chronic diastolic congestive heart failure. 2. Pericardial effusion. 3. End-stage renal disease. 4. Acute myocardial infarction. 5. Severe protein-calorie malnutrition. 6. Pulmonary infiltrates, possibly pneumonia. PLAN: 1. Titrating anti-failure and antianginal regimen based on clinical parameters 2. Continuing to observe for signs of tamponade. 3. Continue hemodialysis with ultrafiltration. 4. Protein supplement. Luis Jade M.D. DR: ASHLEY JOB#: [id number] CC:
[2018-09-26 12:00] VITALS: BP 119/58
--- NOTE | 2018-09-26 12:47 | Nephrology Progress Note ---
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 Pulm HTN Now DNR Plan HD 09/24 next 09/26- currently seen on HD tolerating well. ASA Nitrate adjust BP meds- per orders DC to ECF is being processed Subjective ROS Limited/Unobtainable: No Objective Objective Last 24 Hour Vital Signs Date Time Temp Pulse Resp B/P (MAP) Pulse Ox O2 Delivery O2 Flow Rate FiO2 09/26/18 12:00 98.1 77 20 119/58 (78) 95 09/26/18 12:00 119/58 09/26/18 09:32 147/63 09/26/18 09:32 84 147/63 09/26/18 09:00 Nasal Cannula 2.0 09/26/18 08:00 97.8 84 20 147/63 (91) 95 09/26/18 07:38 89 09/26/18 06:29 138/56 09/26/18 04:00 97.1 76 18 138/56 (83) 97 09/26/18 04:00 72 09/26/18 00:37 110/61 09/26/18 00:00 70 09/26/18 00:00 98.0 77 18 110/61 (77) 96 09/25/18 21:00 Nasal Cannula 2.0 09/25/18 20:27 68 115/53 09/25/18 20:00 76 09/25/18 20:00 97.5 68 18 115/53 (73) 98 09/25/18 19:36 98 Nasal Cannula 2.0 28 09/25/18 19:36 70 18 Nasal Cannula 2.0 28 09/25/18 19:36 Nasal Cannula 2.0 28 09/25/18 17:50 134/57 09/25/18 15:49 97.6 69 19 134/57 (82) 98 09/25/18 15:45 73 09/25/18 13:45 99 Nasal Cannula 2.0 28 09/25/18 13:45 72 18 Nasal Cannula 2.0 28 09/25/18 13:45 Nasal Cannula 2.0 28 Intake and Output 09/25/18 09/26/18 18:59 06:59 Intake Total 760 ml Output Total 100 ml Balance 660 ml Intake Oral 760 ml Output Urine Total 100 ml # Voids 2 Laboratory Tests 09/26/18 06:40: White Blood Count 5.2, Red Blood Count 2.51L, Hemoglobin 8.0L, Hematocrit 24.8L , Mean Corpuscular Volume 99, Mean Corpuscular Hemoglobin 31.9H, Mean Corpuscular Hemoglobin Concent 32.2, Red Cell Distribution Width 16.8H, Platelet Count 154, Mean Platelet Volume 6.0L, Neutrophils (%) (Auto) 68.8, Lymphocytes (%) (Auto) 18.1L, Monocytes (%) (Auto) 10.3H, Eosinophils (%) (Auto ) 2.2, Basophils (%) (Auto) 0.6, Sodium Level 134L, Potassium Level 4.3, Chloride Level 96L, Carbon Dioxide Level 28, Anion Gap 11, Blood Urea Nitrogen 77H, Creatinine 5.8H, Estimat Glomerular Filtration Rate , Glucose Level 101, Calcium Level 8.1L, Phosphorus Level 4.0, Magnesium Level 2.2, Total Bilirubin 0.5, Aspartate Amino Transf (AST/SGOT) 23, Alanine Aminotransferase (ALT/SGPT) 16, Alkaline Phosphatase 128H, C-Reactive Protein, Quantitative 3.7H, Pro-B- Type Natriuretic Peptide > 30866Z, Total Protein 6.5, Albumin 2.4L, Globulin 4.1 , Albumin/Globulin Ratio 0.6L Height (Feet): 5 Height (Inches): 6.00 Weight (Pounds): 134 General Appearance: no apparent distress Cardiovascular: normal rate Respiratory/Chest: lungs clear Abdomen: soft Objective no change Ady Gómez MD Sep 26, 2018 12:47
[2018-09-26 16:00] VITALS: BP 158/61
--- NOTE | 2018-09-26 16:50 | Diagnostic Imaging Report ---
Clinical Indication: Shortness breath, chest pain Technique: Spiral acquisitions obtained through the chest. No IV contrast utilized, reason not stated. Multiplanar reconstructions generated. Total dose length product 507.96 mGycm. CTDIvol(s) 13.94 mGy. Dose reduction achieved using automated exposure control Comparison: 11/30/2016 Findings: There is image degradation due to respiratory motion artifact. The heart is massively enlarged. Again demonstrated is extensive pulmonary parenchymal bullous changes in the bilateral upper lobes, extensive honeycombing in the left upper lobe, nonspecific interstitial opacities throughout both lungs. Groundglass opacity within the bilateral upper lobes is increased from the prior exam. There is a large right pleural effusion which is slightly increased in size since prior exam. No pleural fluid is seen on the left. There is a large pericardial effusion, increased since the prior exam, now measuring up to 3.3 cm thick. Compressive atelectatic changes of the in both lung bases are again demonstrated The ascending thoracic aorta is ectatic, measuring 4 cm in diameter. The main pulmonary artery is ectatic, measuring 3.8 cm in diameter, and the right and left main pulmonary arteries are likewise ectatic. There are prominent but not frankly enlarged mediastinal lymph nodes. A tiny nodule is seen in the right thyroid lobe, also evident previously. No axillary or chest wall mass or adenopathy. There are degenerative proliferative changes of the thoracic spine The included upper abdomen again demonstrates pneumobilia. There is some hepatic colonic interposition. Surgical clip is seen along the falciform ligament. Surgical clips are also seen in the gallbladder fossa. Impression: Extensive COPD changes and chronic pulmonary interstitial fibrosis changes, also described on prior study of 11/30/2016 Superimposed groundglass opacity and suggestion of interstitial septal edema, increased from the previous study and consistent with pulmonary edema. Large right pleural effusion, slightly increased from prior exam Massive pericardial effusion, increased from prior exam Massive cardiomegaly Ectatic but not frankly aneurysmal ascending thoracic aorta Ectatic pulmonary arteries, suggestive of but not conclusive for pulmonary arterial hypertension Tiny right lobe thyroid nodule, no further follow-up necessary Degenerative proliferative changes of the thoracic spine Pneumobilia, also previously described Evidence of prior cholecystectomy The CT scanner at [facility] is accredited by the [employer] and the scans are performed using protocols designed to limit radiation exposure to as low as reasonably achievable to attain images of sufficient resolution adequate for diagnostic evaluation.
--- NOTE | 2018-09-26 21:00 | Progress Note ---
DATE: 09/26/2018 CARDIOLOGY PROGRESS NOTE SUBJECTIVE: The patient is less short of breath. Echocardiogram performed reveals no evidence of tamponade, pericardial effusion slightly diminished. OBJECTIVE: VITAL SIGNS: Blood pressure 119/58, pulse 77, respiratory rate 20. NECK: Supple. LUNGS: Clear. CARDIAC: Irregularly irregular. Normal S1 and S2. ABDOMEN: Soft. No edema. IMPRESSION: 1. Acute on chronic systolic and diastolic congestive heart failure. 2. Pulmonary hypertension. 3. Cerebrovascular disease with dementia. 4. End-stage renal disease. 5. Acute myocardial infarction. 6. Pericardial effusion. 7. Atrial fibrillation, chronic. PLAN: Plan of care to include continued hemodialysis with ultrafiltration and titration of anti-failure regimen. No indication for pericardiocentesis presently, not a candidate for anticoagulation due to bleeding risk. Outpatient followup arranged. Luis Jade M.D. DR: Jada JOB#: [id number] CC:
--- NOTE | 2018-09-27 12:29 | Discharge Summary ---
Discharge Summary Discharge Summary _ DATE OF ADMISSION: 09/19/2018 DATE OF DISCHARGE: 09/26/2018 CONSULTANTS: Dr. Luis Gómez BRIEF HOSPITAL COURSE: Patient is an 83-year-old male, with history of CHF, hypertension, hypertensive heart disease, end-stage renal disease and GERD, was brought in by family members from home with complaints of worsening shortness of breath. Patient was recently admitted to [facility] with CHF exacerbation. He was dialyzed for several days. He declined to go back to the custodial and requested to go back home with his family. He had been doing well, until several days prior to admission, he developed worsening shortness of breath. He denied any fever or chills, denied cough. On evaluation at ED, patient was severely hypoxic. O2 saturation was initially in the 60s. He was started on BiPAP. Blood work did not show any leukocytosis , hemoglobin was 9, hematocrit 28, platelet 149. Potassium was 3.3, BUN was 29 , creatinine 2.4. Initial troponin was 0.59. Aspirin was given. Central line was inserted to the left internal jugular vein. Chest x-ray showed evidence of congestive heart failure with bilateral interstitial and airspace edema. Urgent hemodialysis was arranged. He was then admitted for evaluation of acute CHF with pulmonary edema and respiratory failure. Patient's family does not want intubation. Dr. Gómez was consulted. Patient was ordered inpatient hemodialysis. Respiratory status was monitored. Electronic Sales And Service Technician was consulted. He was breathing better post dialysis and BiPAP was tapered off. He was saturating well on nasal cannula. Cardiac troponins were monitored. Infrastructure Architect was consulted. Patient has acute on chronic systolic and diastolic congestive heart failure and elevated troponin, acute myocardial ischemia and possible non-ST elevated NV precipitated by severe hypoxia. EKG on admission revealed atrial fibrillation with nonspecific ST to T wave changes. Rate was controlled. Pericardiocentesis was not recommended. Pericardial effusion was with no signs of tamponade. He was given beta umair, nitrates and antiplatelet therapy. Aspirin was eventually discontinued. He was given full anticoagulation for cardioembolic prophylaxis. He was continued on hemodialyses. Serial chest x-rays were done. Chest CT showed extensive COPD changes with chronic pulmonary interstitial fibrosis, pulmonary edema, right large pleural effusion. He continued to have evidence of interstitial edema. He continued to have slow but steady progress. Blood culture did not isolate any growth. Influenza screen negative. Patient was referred to SNF. Patient and family declined SNF placement. He was eventually discharged home with home health, to resume outpatient dialysis with [facility]. FINAL DIAGNOSES: Acute on chronic systolic and diastolic congestive heart failure Acute respiratory failure due to pulmonary edema and fluid overload, requiring BiPAP, resolved Pulmonary hypertension End-stage renal disease on hemodialysis Cerebrovascular disease with dementia End-stage renal disease Hypertensive kidney disease Acute myocardial infarction Pericardial effusion Atrial fibrillation,chronic Pericardial effusion Fluid overload Hypertension Multi-infarct brain disease Severe protein calorie malnutrition Anemia likely of chronic disease Dementia Mild thrombocytopenia BPH DNR DISPOSITION: Patient was discharged home with home health. DISCHARGE MEDICATIONS: Refer to Discharge Medication List. DISCHARGE INSTRUCTIONS: Follow up in a week. I have been assigned to dictate discharge summary on this account, and I was not involved in the patient's management. Stephy Houston NP Sep 27, 2018 12:29
== END 2018-09-26 17:19 | disposition home health service (06) | DRG 280 ==
LOC: EMR 12:53 → 2W 13:07 → EDBEDREQ 13:29 → 2E 09-22 08:58
PROC: 05HN33Z Insertion of Infusion Device into Left Internal Jugular Vein, Percutaneous Approach (ICD-10-PCS; principal; 2018-09-19)
PROC: 5A09457 Assistance with Respiratory Ventilation, 24-96 Consecutive Hours, Continuous Positive Airway Pressure (ICD-10-PCS; principal; 2018-09-19)
PROC: 5A1D70Z Performance of Urinary Filtration, Intermittent, Less than 6 Hours Per Day (ICD-10-PCS; 2018-09-24)
DX: I13.2 Hypertensive heart and chronic kidney disease with heart failure and with stage 5 chronic kidney disease, or end stage renal disease (principal); I50.43 Acute on chronic combined systolic (congestive) and diastolic (congestive) heart failure; I21.4 Non-ST elevation (NSTEMI) myocardial infarction; N18.6 End stage renal disease; J96.01 Acute respiratory failure with hypoxia; E43 Unspecified severe protein-calorie malnutrition; I31.3 Pericardial effusion (noninflammatory); Z99.2 Dependence on renal dialysis; I27.20 Pulmonary hypertension, unspecified; F01.50 Vascular dementia, unspecified severity, without behavioral disturbance, psychotic disturbance, mood disturbance, and anxiety; D63.8 Anemia in other chronic diseases classified elsewhere; D69.6 Thrombocytopenia, unspecified; N40.0 Benign prostatic hyperplasia without lower urinary tract symptoms; Z66 Do not resuscitate; Z91.018 Allergy to other foods; Z86.74 Personal history of sudden cardiac arrest; R13.10 Dysphagia, unspecified; J44.9 Chronic obstructive pulmonary disease, unspecified; M10.9 Gout, unspecified; K21.9 Gastro-esophageal reflux disease without esophagitis; I48.91 Unspecified atrial fibrillation
CPT/HCPCS: 36415; 36600; 71045; 71250; 80053; 82550; 82553; 82728; 82803; 83540; 83550; 83605; 83690; 83735; 83880; 84100; 84443; 84484; 84550; 85025; 86140; 86710; 86850; 86900; 86901; 87040; 87081; 93005; 93306; 94660; 94664; 94760; 99285; J7620

== ENCOUNTER 2018-10-21 16:14 | Inpatient (IN) | payer MEDICARE, MEDICAID ==
[~2018-10-21] VITALS: Ht 154.9 cm; Wt 62.1 kg
[2018-10-21 16:25] VITALS: BP 145/58
--- NOTE | 2018-10-21 16:25 | NUR ---
ED Nurse Note: PT WALKED IN TO ER TODAY FROM HOME. AOX4. SON AT BEDSIDE. PT C/O SOB AND PRODUCTIVE COUGH X 4 DAYS. PT STATES SPUTUM COLOR IS "DARK." RR21 WITH O2 SAT AT 95% ON RA AT BEDSIDE. LUNG SOUNDS CLEAR IN ALL LOBES. NO SIGNS OF RESPIRATORY DISTRESS.
[2018-10-21] MEDS ORDERED: Albuterol ud Inhalation HHN ONE (16:45)
[2018-10-21] MEDS ORDERED: Ipratropium 0.02% Inh Soln 2.5ml UD HHN ONE (16:45)
--- NOTE | 2018-10-21 17:26 | NUR ---
ED Nurse Note: Endorsed 2nd blood culture to FERNANDA Ann. tech intern(Harrison) also contacted for 2nd blood culture.
--- NOTE | 2018-10-21 17:31 | Diagnostic Imaging Report ---
Indication: Shortness of breath Technique: One view of the chest Comparison: 09/22/2018 Findings: Interim removal of previously demonstrated left chest port catheter. There is bilateral interstitial and airspace disease and likely small bilateral pleural effusions. The heart is enlarged. Impression: Bilateral interstitial airspace disease, likely pulmonary edema, similar to prior exam Interim port catheter removal Cardiomegaly
[2018-10-21 17:34] LABS: ANION GAP 4 mmol/L (5-15); BLOOD UREA NITROGEN 20 mg/dL (7-18); CARBON DIOXIDE 33 MMOL/L (21-32); CHLORIDE 96 MMOL/L (98-107); CREATININE 2.3 MG/DL (0.55-1.30); POTASSIUM 3.8 MMOL/L (3.5-5.1); SODIUM 133 MMOL/L (136-145)
[2018-10-21 17:47] LABS: ALANINE AMINOTRANSFERASE 31 U/L (12-78); ALBUMIN 2.2 G/DL (3.4-5.0); ALBUMIN/GLOBULIN RATIO 0.5 (1.0-2.7); ALKALINE PHOSPHATASE 141 U/L (46-116); ASPARTATE AMINO TRANSFERASE 36 U/L (15-37); BILIRUBIN,TOTAL 0.3 MG/DL (0.2-1.0); CKMB 1.5 NG/ML (0.0-3.6); CREATINE KINASE 46 U/L (26-308)
[2018-10-21 17:56] LABS: BASOPHILS % (AUTO) 0.4 % (0.0-2.0); EOSINOPHILS % (AUTO) 1.1 % (0.0-3.0); HEMATOCRIT 25.2 % (42.0-52.0); HEMOGLOBIN 8.4 G/DL (14.2-18.0); LYMPHOCYTES % (AUTO) 18.7 % (20.0-45.0); MEAN CORPUSCULAR VOLUME 102 FL (80-99); MONOCYTES % (AUTO) 10.1 % (1.0-10.0); NEUTROPHILS % (AUTO) 69.8 % (45.0-75.0); PLATELET COUNT 164 K/UL (150-450); RED BLOOD COUNT 2.46 M/UL (4.70-6.10); RED CELL DISTRIBUTION WIDTH 16.1 % (11.6-14.8)
--- NOTE | 2018-10-21 19:00 | NUR ---
NURSE NOTES: Report received from FERNANDA Ann, from ER over the phone.
--- NOTE | 2018-10-21 19:18 | NUR ---
ED Nurse Note: PT LAYING PEACEFULLY IN BED IN NAD. AOX4. SON REMAINS AT BEDSIDE. TELE CALLED FOR PT TRANSFER. REPORT GIVEN TO FERNANDA BURGOS. PT TAKEN UP TO TELE VIA [place] ON COINING PRESS OPERATOR WITH ALL BELONGINGS.
--- NOTE | 2018-10-21 19:28 | NUR ---
HAND-OFF: Report given to FERNANDA Cadet. Patient isn't on the floor yet.
--- NOTE | 2018-10-21 19:31 | Emergency Room Report ---
History of Present Illness General Chief Complaint: Dyspnea/Respdistress Source: Family Member, Medical Record Present Illness HPI 83-year-old M presents ED for evaluation of shortness of breath. Son at bedside states that patient has been having increasing shortness of breath over the last few days with a cough. Cough is productive with yellowish phlegm. Denies fevers or chills. Denies chest pain. History of COPD and history of end -stage renal disease on dialysis. Patient normally his dialysis Sunday. Got dialysis today because of the holiday tomorrow. States he did receive a flu shot. Denies any leg swelling. No other aggravating relieving factors. Denies any other associated symptoms Allergies: Coded Allergies: BANANA (Verified Allergy, Severe, 09/05/18) GIL (Verified Allergy, Severe, 09/05/18) CARROT (Verified Allergy, Severe, 09/05/18) Dairy (Verified Allergy, Severe, 09/05/18) GRAPE (Verified Allergy, Severe, 09/05/18) Pork (Verified Allergy, Severe, 09/05/18) Potato (Verified Allergy, Severe, 08/12/18) Patient History Past Medical History: HTN, COPD, dementia, renal disease, dialysis Pertinent Family History: none Social History: Denies: smoking, alcohol use, drug use Immunizations: UTD Reviewed Nursing Documentation: PMH: Agreed; PSxH: Agreed Nursing Documentation-PMH Past Medical History: No History, Except For Hx Cardiac Problems: Yes Hx Hypertension: Yes Hx Pacemaker: No Hx Asthma: No Hx COPD: Yes Hx Diabetes: No Hx Cancer: No Hx Gastrointestinal Problems: Yes - dysphagia, gout Hx Dialysis: Yes - , , Sun Hx Neurological Problems: Yes Hx Cerebrovascular Accident: Yes Hx Dementia: Yes Hx Seizures: No Hx Weakness: Yes Review of Systems All Other Systems: negative except mentioned in HPI Physical Exam Vital Signs Date Time Temp Pulse Resp B/P (MAP) Pulse Ox O2 Delivery O2 Flow Rate FiO2 10/21/18 16:22 98.2 118 23 93 Room Air 10/21/18 16:25 145/58 10/21/18 16:48 21 Sp02 EP Interpretation: reviewed, normal General Appearance: no apparent distress, alert, GCS 15, non-toxic Head: normocephalic, atraumatic Eyes: bilateral eye normal inspection, bilateral eye PERRL ENT: hearing grossly normal, normal pharynx, no angioedema, normal voice Neck: full range of motion, supple/symm/no masses Respiratory: chest non-tender, normal breath sounds, crackles, speaking full sentences, wheezing Cardiovascular #1: regular rate, rhythm, no edema Cardiovascular #2: 2+ carotid (R), 2+ carotid (L), 2+ radial (R), 2+ radial (L) , 2+ dorsalis pedis (R), 2+ dorsalis pedis (L) Gastrointestinal: normal bowel sounds, non tender, soft, non-distended, no guarding, no rebound Rectal: deferred Genitourinary: normal inspection, no CVA tenderness Musculoskeletal: back normal, gait/station normal, normal range of motion, non- tender Neurologic: alert, oriented x3, responsive, motor strength/tone normal, sensory intact, speech normal Psychiatric: judgement/insight normal, memory normal, mood/affect normal, no suicidal/homicidal ideation Reflexes: 3+ bicep (R), 3+ bicep (L), 3+ tricep (R), 3+ tricep (L), 3+ knee (R) , 3+ knee (L) Skin: normal color, no rash, warm/dry, well hydrated Lymphatic: no adenopathy Medical Decision Making Diagnostic Impression: Primary Impression: COPD (chronic obstructive pulmonary disease) with chronic bronchitis Additional Impressions: Pleural effusion ESRD (end stage renal disease) on dialysis ER Course Hospital Course 83 yo M presents to ED c/o SOB. h/o CHF and COPD Differential diagnoses include: Pneumonia, CHF exacerbation, pneumothorax, fluid overload Clinical course Patient placed on stretcher. On quality assurance monitor final with stable vitals. After initial history and physical, I ordered nebulizer treatments. I ordered labs, EKG, chest x-ray, blood cultures, UA. Labs - no leukocytosis noted, hemoglobin/hematocrit stable, BUN/Cr elevated, trop indeterminate. BNP elevated CXR - cardiomegaly, pleural effusions EKG - afib, no acute ischemic changes interpreted by me abx given. IV placed by nursing not sufficient. I placed a peripheral EJ line Case discussed with Dr. Jade and he agreed to the patient to his service for further care and support I feel this is a highly complex case requiring extensive working including EKG/ Rhythm strip, Xray/CT/US, Blood/urine lab work, repeat exams while in ED, and administration of strong opiates/narcotics for pain control, admission to hospital or close patient follow up. Diagnosis - COPD, pleural effusion, ESRD on dialysis Patient admitted to telemetry in serious condition Labs Test 10/21/18 17:05 White Blood Count 7.0 K/UL (4.8-10.8) Red Blood Count 2.46 M/UL (4.70-6.10) Hemoglobin 8.4 G/DL (14.2-18.0) Hematocrit 25.2 % (42.0-52.0) Mean Corpuscular Volume 102 FL (80-99) Mean Corpuscular Hemoglobin 34.0 PG (27.0-31.0) Mean Corpuscular Hemoglobin Concent 33.2 G/DL (32.0-36.0) Red Cell Distribution Width 16.1 % (11.6-14.8) Platelet Count 164 K/UL (150-450) Mean Platelet Volume 5.9 FL (6.5-10.1) Neutrophils (%) (Auto) 69.8 % (45.0-75.0) Lymphocytes (%) (Auto) 18.7 % (20.0-45.0) Monocytes (%) (Auto) 10.1 % (1.0-10.0) Eosinophils (%) (Auto) 1.1 % (0.0-3.0) Basophils (%) (Auto) 0.4 % (0.0-2.0) Sodium Level 133 MMOL/L (136-145) Potassium Level 3.8 MMOL/L (3.5-5.1) Chloride Level 96 MMOL/L (98-107) Carbon Dioxide Level 33 MMOL/L (21-32) Anion Gap 4 mmol/L (5-15) Blood Urea Nitrogen 20 mg/dL (7-18) Creatinine 2.3 MG/DL (0.55-1.30) Estimat Glomerular Filtration Rate mL/min (>60) Glucose Level 116 MG/DL (74-106) Lactic Acid Level 1.70 mmol/L (0.4-2.0) Calcium Level 8.0 MG/DL (8.5-10.1) Total Bilirubin 0.3 MG/DL (0.2-1.0) Aspartate Amino Transf (AST/SGOT) 36 U/L (15-37) Alanine Aminotransferase (ALT/SGPT) 31 U/L (12-78) Alkaline Phosphatase 141 U/L (46-116) Total Creatine Kinase 46 U/L (26-308) Creatine Kinase MB 1.5 NG/ML (0.0-3.6) Creatine Kinase MB Relative Index 3.2 Troponin I 0.029 ng/mL (0.000-0.056) Pro-B-Type Natriuretic Peptide > 18561 pg/mL (0-125) Total Protein 6.4 G/DL (6.4-8.2) Albumin 2.2 G/DL (3.4-5.0) Globulin 4.2 g/dL Albumin/Globulin Ratio 0.5 (1.0-2.7) EKG Diagnostic Results Rate: normal Rhythm: other - afib ST Segments: no acute changes ASA given to the pt in ED: No Rhythm Strip Diag. Results EP Interpretation: yes Rhythm: no PVC's, no ectopy Chest X-Ray Diagnostic Results Chest X-Ray Diagnostic Results : Chest X-Ray Ordered: Yes # of Views/Limited/Complete: 1 View Indication: Shortness of Breath EP Interpretation: Yes Interpretation: no consolidation, no pneumothorax, other - bilateral effusions, cardiomegaly Impression: Other - pleural effusion Electronically Signed by: Electronically signed by Lj Tracey MD Last Vital Signs Date Time Temp Pulse Resp B/P (MAP) Pulse Ox O2 Delivery O2 Flow Rate FiO2 10/21/18 18:58 98.6 75 21 137/62 98 Room Air 10/21/18 16:59 21 Status: improved Disposition: ADMITTED INPATIENT Condition: Serious Referrals: Ady Gómez MD (PCP) jL Tracey MD Oct 21, 2018 19:31
--- NOTE | 2018-10-21 19:40 | NUR ---
NURSE NOTES: Patient admitted to 2E Room 208-2 via gurney. Accompanied by 2 ED staff members. awake A/OX4. Breathing via NC 2L with no SOB . O2 sat 95-97%.son at bedside.Denies any pain at this time. A-Fib with HR of 86. BP 143/62. skin intact. AV Fistula for dialysis access on left upper arm is intact with presence of bruit and thrill.given hospital orientation.call light in reach. bed in locked and lowest position. 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
[2018-10-21 21:00] VITALS: BP 143/60
[2018-10-21] MEDS ORDERED: Vancomycin 750mg/NS 250ml IVPB SCH (23:00)
[2018-10-22] MEDS: TraZODone 50mg tab ORAL SCH ×2 (00:06→21:15)
[2018-10-22] MEDS: Carvedilol 12.5mg tab ORAL SCH ×3 (00:06→21:16)
[2018-10-22] MEDS: Albuterol/Ipratropium 3ml neb HHN SCH ×7 (00:49→23:08)
--- NOTE | 2018-10-22 01:00 | Consultation ---
DATE OF CONSULTATION: 10/21/2018 CARDIOLOGY CONSULTATION CONSULTING PHYSICIAN: Luis Jade M.D. REQUESTING PHYSICIAN: Bulmaro Perez M.D. REASON FOR CONSULTATION: Congestive heart failure. HISTORY OF PRESENT ILLNESS: This is an 83-year-old [place] male with end-stage renal disease, on hemodialysis. He had a session of dialysis today with no complications and adequate fluid removal noted. He has had several days of progressive cough, congestion, and shortness of breath with yellow phlegm production. He apparently got worsening short of breath this evening after going home from dialysis. He was unable to manage. He actually got a dialysis session early today because tomorrow is [place] holiday. He has received a flu shot this year as well. He has not noted any swelling in his legs and has been compliant with medications and dietary restrictions. In the emergency room, he was noted to have an abnormal chest radiograph with evidence of possible pneumonia and pulmonary venous congestion. He was admitted to the hospital for further management and I have been asked to address cardiovascular needs. PAST MEDICAL HISTORY: Hypertension, coronary artery disease, congestive heart failure, COPD, hyperuricemia, history of gout, cerebrovascular disease with history of CVA, dysphagia, dementia, end-stage renal disease. ALLERGIES: Foods products are listed in the chart. No medication allergies known. SOCIAL HISTORY: Prior smoker. No alcohol or substance abuse. MEDICATIONS: Prior to admission, reviewed and reconciled. FAMILY HISTORY: Noncontributory. REVIEW OF SYSTEMS: A 10-point review of systems performed. All systems negative other than noted above. The patient is unable to give much history and data is obtained from review of old records. PHYSICAL EXAMINATION: VITAL SIGNS: Blood pressure 145/58, pulse 118, respiratory rate 23, afebrile, oxygen saturations on room air 93%. GENERAL: Moderate respiratory distress. HEENT: Conjunctivae pink. Sclerae are anicteric. Temporal wasting. Oropharynx clear. NECK: Supple. Jugular venous pressure elevated. LUNGS: With coarse breath sounds. Scattered rales. CARDIAC: Regular rhythm and rate. Normal S1 and S2 with a fourth heart sound and a 1/6 systolic murmur at base. ABDOMEN: Soft, nontender. No guarding or rebound. EXTREMITIES: Good pulses. No edema. NEUROLOGIC: No focal deficits. SKIN: Dialysis access site is with a bruit. LABORATORY AND DIAGNOSTIC DATA: EKG reveals atrial fibrillation with nonspecific ST-T wave changes. Chest x-ray, pending for review. Laboratories notable for white count 7, hemoglobin 8.4. Potassium 3.8, BUN 20, creatinine 2.3. Troponin 0.029 and pro-natriuretic peptide over 35,000. Albumin 2.2. IMPRESSION: 1. Healthcare-acquired pneumonia. 2. Acute on chronic diastolic and systolic congestive heart failure. 3. COPD with exacerbation. 4. Possible recurring pleural effusion. 5. End-stage renal disease. 6. Paroxysmal atrial fibrillation. 7. Severe protein-calorie malnutrition. PLAN: 1. [place]-culture. 2. Broad-spectrum empiric antibiotics. 3. Bronchodilators. 4. Respiratory hygiene. 5. Hemodialysis with ultrafiltration for volume management. 6. Maximize anti-failure regimen. 7. Continue full anticoagulation with apixaban for cardioembolic prophylaxis. Luis Jade M.D. DR: Babar JOB#: [id number] CC:
[2018-10-22] MEDS: Cefepime HCl 1 GM in D5W 55 ML IVPB SCH ×2 (01:35→21:17)
[2018-10-22 04:00] VITALS: BP 142/59
--- NOTE | 2018-10-22 07:45 | NUR ---
NURSE NOTES: patient sitting up in bed, breathing even and unlabored on 2L o2 via NC. tele monitor reading afib 81bpm. denies pain. skin warm and dry. no BP or blood draw on L arm sign above bed. ate breakfast. RH and LEH iv patent. call light in reach.
--- NOTE | 2018-10-22 07:59 | NUR ---
HAND-OFF: Report given to HERIBERTO MICHAEL. no acute distress noted.patient remains stable in condition.
[2018-10-22 08:00] VITALS: BP 150/55
[2018-10-22] MEDS: Eliquis 2.5mg tablet ORAL SCH ×2 (08:42→17:28)
[2018-10-22] MEDS: Allopurinol 100mg Tab ORAL SCH (08:43)
[2018-10-22] MEDS: Imdur 30mg tab ORAL SCH (08:43)
[2018-10-22] MEDS ORDERED: Docusate 100mg cap ORAL SCH (09:00)
--- NOTE | 2018-10-22 09:45 | History and Physical Report ---
DATE OF ADMISSION: 10/21/2018 CHIEF COMPLAINT: CHF and pulmonary edema. HISTORY OF PRESENT ILLNESS: The patient is an 83-year-old male, well known to me. He has history of hypertensive heart disease, end-stage renal disease, and congestive heart failure. He presented from home with a complaint of shortness of breath. The patient is a poor historian. He apparently had worsening shortness of breath on the day of admission and presented to the emergency room. There, his chest x-ray showed pulmonary edema. According to the patient, he has been compliant with his hemodialysis sessions. He has been compliant with his low-salt, low fluid intake. On evaluation in the emergency room, the patient had an elevated natriuretic peptide level greater than 35,000. Initial troponin was negative. He is now admitted for further evaluation and care. PAST MEDICAL HISTORY: As above. History of COPD, CVA, and history of gout. PAST SURGICAL HISTORY: None. CURRENT MEDICATIONS: Reconciled and reviewed. ALLERGIES: None. FAMILY HISTORY: None. SOCIAL HISTORY: Negative for tobacco, ethanol, or drugs. REVIEW OF SYSTEMS: GENERAL: No fevers or chills. HEENT: No headaches or visual changes. CARDIOPULMONARY: Positive shortness of breath, cough, and congestion. GASTROINTESTINAL: No nausea or vomiting. GENITOURINARY: No urgency or frequency. MUSCULOSKELETAL: No joint pain or swelling. NEUROLOGIC: No evidence of seizures. PHYSICAL EXAMINATION: VITAL SIGNS: Temperature 98, pulse 73, respirations 21, and blood pressure 142/59. GENERAL: The patient is well developed, in no apparent distress. He is sitting upright in bed. He is alert. NECK: Supple. HEART: Regular rate and rhythm. LUNGS: Significantly diminished breath sounds at the bases. ABDOMEN: Soft, nontender, and nondistended. EXTREMITIES: Without clubbing, cyanosis, or edema. LABORATORY DATA: Sodium 133, potassium 3.8, chloride 96, bicarbonate 33, BUN 20, and creatinine 2.3. Troponin was 0.039. Natriuretic peptide level is greater than 35,000. WBC 7, hemoglobin 8.4, hematocrit 25.3, and platelet count of 164,000. ASSESSMENT: This is a pleasant male with history of hypertensive heart disease, end-stage renal disease, history of congestive heart failure, chronic obstructive pulmonary disease, prior stroke with complaints of shortness of breath secondary to pulmonary edema. 1. Pulmonary edema and congestive heart failure exacerbation. 2. End-stage renal disease. 3. Anemia likely secondary to chronic kidney disease. 4. Hypertension. 5. History of stroke. PLAN: Hemodialysis with ultrafiltration. Cardiology consultation. We will follow up and trend troponins. Continue supplemental oxygen as needed. Monitor for fevers. Monitor chest x-ray for improvement. DVT and stress ulcer prophylaxis. Bulmaro Perez M.D. DR: CLARE JOB#: [id number] CC:
[2018-10-22 12:00] VITALS: BP 135/59
[2018-10-22] MEDS ORDERED: Tubing IV Secondary IV ONE (13:24)
--- NOTE | 2018-10-22 14:26 | Consultation ---
Consult Note Consult Note patient under my care for his dialysis related treatments as OP 83-year-old M presents ED for evaluation of shortness of breath. Son at bedside states that patient has been having increasing shortness of breath over the last few days with a cough. Cough is productive with yellowish phlegm. Denies fevers or chills. Denies chest pain. History of COPD and history of end -stage renal disease on dialysis. Patient normally his dialysis Sunday. Got dialysis today because of the holiday tomorrow. States he did receive a flu shot. Denies any leg swelling. No other aggravating relieving factors. Denies any other associated symptoms Allergies: BANANA (Verified Allergy, Severe, 09/05/18) GIL (Verified Allergy, Severe, 09/05/18) CARROT (Verified Allergy, Severe, 09/05/18) Dairy (Verified Allergy, Severe, 09/05/18) GRAPE (Verified Allergy, Severe, 09/05/18) Pork (Verified Allergy, Severe, 09/05/18) Potato (Verified Allergy, Severe, 08/12/18) Past Medical History: HTN, COPD, dementia, renal disease, dialysis Past Medical History: No History, Except For Hx Cardiac Problems: Yes Hx Hypertension: Yes Hx COPD: Yes Hx Gastrointestinal Problems: Yes - dysphagia, gout Hx Dialysis: Yes - , , Sun Hx Neurological Problems: Yes Hx Cerebrovascular Accident: Yes Hx Dementia: Yes Hx Weakness: Yes examined data reviewed Assessment/Plan Patient presents with cough Shortness of Breathand chills (1) ESRD (end stage renal disease) on dialysis sun (2) h/o Atrial fibrillation with rapid ventricular response (3) h/o Myocardial injury (4) Pericardial effusion (5) Fluid overload other Hypertension h/o Respiratory Arrest and Pneumonia and Hemoptysis ESRD Maulti infarct brain disease Pulm HTN Now DNR HD In am Adjust BP and Cardiac and pul status per orders Ady Gómez MD Oct 22, 2018 14:25
[2018-10-22 16:00] VITALS: BP 122/67
[2018-10-22] MEDS: Docusate 100mg cap ORAL SCH (17:28)
--- NOTE | 2018-10-22 19:18 | NUR ---
HAND-OFF: Report given to Chrissy Andrade RN
--- NOTE | 2018-10-22 19:56 | NUR ---
NURSE NOTES: Receieved report from FERNANDA Baxter. Patient sitting in bed, awake, alert, and able to make needs known. Hooked to monitor and storage bin tender. On 2L NC. No respiratory distress at moment. Urinal at bedside. Skin intact. Left Upper Arm fistula. Left external jugualr 22G TKO. Right hand 20G saline lock. Bed in lowest position. Bed alarm on. Call light within reach. Will continue to monitor.
[2018-10-22 20:00] VITALS: BP 126/48
--- NOTE | 2018-10-22 22:15 | Progress Note ---
DATE: 10/22/2018 CARDIOLOGY PROGRESS NOTE SUBJECTIVE: The patient was very short of breath last evening. He continued to feel shortness of breath today with cough productive of sputum, although he slightly improved. OBJECTIVE: VITAL SIGNS: Blood pressure 122/67, pulse 79, respiratory rate 20, oxygen saturation 98% on 2 L. NECK: No Kussmaul sign. LUNGS: Diminished breath sounds. Moderate rhonchi. HEART: Irregularly irregular rhythm. Normal S1, S2. No rub. ABDOMEN: Soft. EXTREMITIES: Trace edema. LABORATORY DATA: No new laboratories. IMPRESSION: 1. Pulmonary edema. 2. COPD. 3. End-stage renal disease. 4. Pericardial effusion. 5. Anemia due to chronic kidney disease. 6. Acute on chronic diastolic congestive heart failure. 7. Possible healthcare-acquired pneumonia. 8. Pulmonary hypertension. 9. Paroxysmal atrial fibrillation. PLAN: 1. Antimicrobials. 2. Hemodialysis with ultrafiltration. 3. Repeat echocardiogram. 4. Titrate anti-failure regimen. 5. Continue Epogen and iron replacement. Juan José García JOB#: [id number] CC:
[2018-10-23] VITALS (8 sets, daily range): BP systolic 111–168; BP diastolic 52–62
[2018-10-23] MEDS: Albuterol/Ipratropium 3ml neb HHN SCH ×6 (03:22→23:31)
[2018-10-23 06:34] LABS: HEMATOCRIT 23.7 % (42.0-52.0); HEMOGLOBIN 7.8 G/DL (14.2-18.0); MEAN CORPUSCULAR VOLUME 102 FL (80-99); PLATELET COUNT 151 K/UL (150-450); RED BLOOD COUNT 2.32 M/UL (4.70-6.10); WHITE BLOOD COUNT 6.3 K/UL (4.8-10.8)
[2018-10-23 07:18] LABS: ALANINE AMINOTRANSFERASE 26 U/L (12-78); ALBUMIN 2.2 G/DL (3.4-5.0); ALBUMIN/GLOBULIN RATIO 0.6 (1.0-2.7); ALKALINE PHOSPHATASE 111 U/L (46-116); ANION GAP 10 mmol/L (5-15); ASPARTATE AMINO TRANSFERASE 25 U/L (15-37); BILIRUBIN,TOTAL 0.4 MG/DL (0.2-1.0); BLOOD UREA NITROGEN 38 mg/dL (7-18); CALCIUM 7.9 MG/DL (8.5-10.1); CARBON DIOXIDE 28 MMOL/L (21-32); CHLORIDE 94 MMOL/L (98-107); CHOLESTEROL 130 MG/DL (< 200); FERRITIN 1339 NG/ML (8-388); HDL CHOLESTEROL 43 MG/DL (40-60); PHOSPHORUS 4.7 MG/DL (2.5-4.9); POTASSIUM 3.9 MMOL/L (3.5-5.1); SODIUM 132 MMOL/L (136-145); TRIGLYCERIDES 98 MG/DL (30-150)
--- NOTE | 2018-10-23 07:35 | NUR ---
HAND-OFF: Report given to Martir Boggs RN. Patient resting in bed, stable.
--- NOTE | 2018-10-23 07:38 | NUR ---
NURSE NOTES: Received report from FERNANDA Lowe. Patient is in stable condition. No acute distress/SOB noted. Will continue castellanos of care.
[2018-10-23 08:22] LABS: % IRON SATURATION 24 % (15-50); IRON 36 ug/dL (50-175); TOTAL IRON BINDING CAPACITY 153 ug/dL (250-450)
[2018-10-23] MEDS: Imdur 30mg tab ORAL SCH (08:48)
[2018-10-23] MEDS: Docusate 100mg cap ORAL SCH ×3 (08:48→17:06)
[2018-10-23] MEDS: Allopurinol 100mg Tab ORAL SCH (08:49)
[2018-10-23] MEDS: Carvedilol 12.5mg tab ORAL SCH ×2 (08:49→21:50)
[2018-10-23] MEDS: Eliquis 2.5mg tablet ORAL SCH ×2 (08:49→17:06)
--- NOTE | 2018-10-23 09:34 | NUR ---
NURSE NOTES: Called Dr. Jade's office and talked with Dr. Perez and informed that hgb 7.8. New orders carried out.
--- NOTE | 2018-10-23 10:05 | General Progress Note ---
Assessment/Plan Problem List: (1) Pulmonary hypertension ICD Codes: I27.20 - Pulmonary hypertension, unspecified SNOMED: 28431315 (2) Hypoxemia ICD Codes: R09.02 - Hypoxemia SNOMED: 056314428 (3) Hypertensive kidney disease ICD Codes: I12.9 - Hypertensive chronic kidney disease with stage 1 through stage 4 chronic kidney disease, or unspecified chronic kidney disease SNOMED: 47888848 (4) COPD (chronic obstructive pulmonary disease) with emphysema ICD Codes: J43.9 - Emphysema, unspecified SNOMED: 07551230 (5) Shortness of breath ICD Codes: R06.02 - Shortness of breath SNOMED: 410588262 (6) COPD (chronic obstructive pulmonary disease) with chronic bronchitis ICD Codes: J44.9 - Chronic obstructive pulmonary disease, unspecified SNOMED: 365310013 (7) Acute respiratory failure ICD Codes: J96.00 - Acute respiratory failure SNOMED: 05611982 (8) Hepatic encephalopathy ICD Codes: K72.90 - Hepatic encephalopathy SNOMED: 44465610 (9) Fluid overload ICD Codes: E87.70 - Hypervolemia SNOMED: 83584170 (10) Hypertension ICD Codes: I10 - Hypertension SNOMED: 37440104 (11) Non-compliance with treatment ICD Codes: Z91.19 - Noncompliance with treatment SNOMED: 9259342 (12) Atrial fibrillation with rapid ventricular response ICD Codes: I48.91 - Atrial fibrillation with rapid ventricular response SNOMED: 566867772566986 Status: stable, progressing Assessment/Plan cont current rx o2 resp care start epo/iron monitor for bleeding monitor cxr HD with UF Subjective ROS Limited/Unobtainable: No Constitutional: Reports: malaise, weakness HEENT: Reports: no symptoms Cardiovascular: Reports: no symptoms Respiratory: Reports: shortness of breath Gastrointestinal/Abdominal: Reports: no symptoms Genitourinary: Reports: no symptoms Neurologic/Psychiatric: Reports: no symptoms Endocrine: Reports: no symptoms Hematologic/Lymphatic: Reports: anemia Allergies: Coded Allergies: BANANA (Verified Allergy, Severe, 09/05/18) GIL (Verified Allergy, Severe, 09/05/18) CARROT (Verified Allergy, Severe, 09/05/18) Dairy (Verified Allergy, Severe, 09/05/18) GRAPE (Verified Allergy, Severe, 09/05/18) Pork (Verified Allergy, Severe, 09/05/18) Potato (Verified Allergy, Severe, 08/12/18) All Systems: reviewed and negative except above Subjective mild sob. no chest pain decrease h/h noted. no bleeding. Objective Last 24 Hour Vital Signs Date Time Temp Pulse Resp B/P (MAP) Pulse Ox O2 Delivery O2 Flow Rate FiO2 10/23/18 08:49 77 168/59 10/23/18 08:48 77 168/59 10/23/18 08:48 168/59 10/23/18 08:00 80 10/23/18 08:00 97.2 77 20 168/59 (95) 100 10/23/18 07:52 76 18 100 Nasal Cannula 2.0 28 10/23/18 07:39 98 Nasal Cannula 2.0 28 10/23/18 07:39 Nasal Cannula 2.0 28 10/23/18 07:39 76 20 100 Nasal Cannula 2.0 28 10/23/18 04:00 76 10/23/18 04:00 97.0 70 20 134/52 (79) 99 10/23/18 03:30 78 18 100 Nasal Cannula 2.0 28 10/23/18 03:22 75 18 99 Nasal Cannula 2.0 28 10/23/18 00:00 97.7 78 20 131/54 (79) 98 10/23/18 00:00 82 10/22/18 23:19 75 18 100 Nasal Cannula 2.0 28 10/22/18 23:08 77 18 99 Nasal Cannula 2.0 28 10/22/18 21:16 75 126/48 10/22/18 21:00 Nasal Cannula 2.0 10/22/18 20:00 72 10/22/18 20:00 97.0 75 20 126/48 (74) 93 10/22/18 19:29 77 18 99 Nasal Cannula 2.0 28 10/22/18 19:24 Nasal Cannula 2.0 28 10/22/18 19:23 98 Nasal Cannula 2.0 28 10/22/18 19:22 76 18 98 Nasal Cannula 2.0 28 10/22/18 16:00 97.4 79 20 122/67 (85) 95 10/22/18 16:00 72 10/22/18 15:33 70 20 99 Nasal Cannula 2.0 28 12/25/18 15:24 69 20 98 Nasal Cannula 2.0 28 10/22/18 12:00 97.6 71 20 135/59 (84) 98 10/22/18 12:00 62 10/22/18 11:24 78 20 98 Nasal Cannula 2.0 28 10/22/18 11:07 79 20 97 Nasal Cannula 2.0 28 Intake and Output 10/22/18 10/23/18 19:00 07:00 Intake Total 700 ml Output Total 400 ml Balance 700 ml -400 ml Intake Oral 700 ml Output Urine Total 400 ml # Voids 6 Laboratory Tests 10/22/18 15:25: C-Reactive Protein, Quantitative 2.8H 10/23/18 04:45: White Blood Count 6.3, Red Blood Count 2.32L, Hemoglobin 7.8L, Hematocrit 23.7L , Mean Corpuscular Volume 102H, Mean Corpuscular Hemoglobin 33.7H, Mean Corpuscular Hemoglobin Concent 33.0, Red Cell Distribution Width 16.0H, Platelet Count 151, Mean Platelet Volume 6.0L, Neutrophils (%) (Auto) , Lymphocytes (%) (Auto) , Monocytes (%) (Auto) , Eosinophils (%) (Auto) , Basophils (%) (Auto) , Differential Total Cells Counted 100, Neutrophils % ( Manual) 79H, Lymphocytes % (Manual) 12L, Monocytes % (Manual) 8, Eosinophils % ( Manual) 1, Basophils % (Manual) 0, Band Neutrophils 0, Platelet Estimate Adequate, Platelet Morphology Normal, Anisocytosis 1+, Sodium Level 132L, Potassium Level 3.9, Chloride Level 94L, Carbon Dioxide Level 28, Anion Gap 10, Blood Urea Nitrogen 38H, Creatinine 4.0#H, Estimat Glomerular Filtration Rate , Glucose Level 101, Hemoglobin A1c 4.2L, Lactic Acid Level 0.60, Uric Acid 4.2, Calcium Level 7.9L, Phosphorus Level 4.7, Magnesium Level 2.0, Iron Level 36L, Total Iron Binding Capacity 153L, Percent Iron Saturation 24, Unsaturated Iron Binding 117, Ferritin 1339H, Total Bilirubin 0.4, Aspartate Amino Transf (AST/ SGOT) 25, Alanine Aminotransferase (ALT/SGPT) 26, Alkaline Phosphatase 111, Troponin I 0.035, Pro-B-Type Natriuretic Peptide > 32267A, Total Protein 5.6L, Albumin 2.2L, Globulin 3.4, Albumin/Globulin Ratio 0.6L, Triglycerides Level 98 , Cholesterol Level 130, LDL Cholesterol 82, HDL Cholesterol 43, Cholesterol/ HDL Ratio 3.0L, Vitamin B12 Level > 2000H, Folate 12.6, Thyroid Stimulating Hormone (TSH) 0.748 Height (Feet): 5 Height (Inches): 1.00 Weight (Pounds): 133 General Appearance: WD/WN, alert Neck: supple Cardiovascular: regular rhythm Respiratory/Chest: lungs clear, decreased breath sounds Abdomen: normal bowel sounds, non tender, soft, no organomegaly Edema: no edema noted Arm (L), no edema noted Arm (R), no edema noted Leg (L), no edema noted Leg (R), no edema noted Pedal (L), no edema noted Pedal (R), no edema noted Generalized Neurologic: spring forger II-XII grossly normal, alert, oriented x 3, responsive Bulmaro Perez MD Oct 23, 2018 10:04
--- NOTE | 2018-10-23 11:47 | Nephrology Progress Note ---
Assessment/Plan Problem List: (1) ESRD (end stage renal disease) on dialysis (2) Fluid overload (3) COPD (chronic obstructive pulmonary disease) (4) Pericardial effusion (5) Pulmonary hypertension (6) Hypoxemia (7) Anemia in CKD (chronic kidney disease) Assessment Presents with respiratory distress and hypoxia Possiblities: CHF-Pul HTN- COPD (1) ESRD (end stage renal disease) on dialysis tue vibha sat (2) h/o Atrial fibrillation with rapid ventricular response (3) h/o Myocardial injury (4) Pericardial effusion (5) Fluid overload other Hypertension h/o Respiratory Arrest and Pneumonia and Hemoptysis ESRD Maulti infarct brain disease Pulm HTN Now DNR Plan ON HD now Optimize cardiac and pulmonary status transfuse 1 unit Subjective ROS Limited/Unobtainable: No Constitutional: Reports: malaise, weakness Objective Objective Last 24 Hour Vital Signs Date Time Temp Pulse Resp B/P (MAP) Pulse Ox O2 Delivery O2 Flow Rate FiO2 10/23/18 10:38 Nasal Cannula 10/23/18 10:38 Nasal Cannula 10/23/18 09:00 Nasal Cannula 2.0 10/23/18 08:49 77 168/59 10/23/18 08:48 77 168/59 10/23/18 08:48 168/59 10/23/18 08:00 80 10/23/18 08:00 97.2 77 20 168/59 (95) 100 10/23/18 07:52 76 18 100 Nasal Cannula 2.0 28 10/23/18 07:39 98 Nasal Cannula 2.0 28 10/23/18 07:39 Nasal Cannula 2.0 28 10/23/18 07:39 76 20 100 Nasal Cannula 2.0 28 10/23/18 04:00 76 10/23/18 04:00 97.0 70 20 134/52 (79) 99 10/23/18 03:30 78 18 100 Nasal Cannula 2.0 28 10/23/18 03:22 75 18 99 Nasal Cannula 2.0 28 10/23/18 00:00 97.7 78 20 131/54 (79) 98 10/23/18 00:00 82 10/22/18 23:19 75 18 100 Nasal Cannula 2.0 28 10/22/18 23:08 77 18 99 Nasal Cannula 2.0 28 10/22/18 21:16 75 126/48 10/22/18 21:00 Nasal Cannula 2.0 10/22/18 20:00 72 10/22/18 20:00 97.0 75 20 126/48 (74) 93 10/22/18 19:29 77 18 99 Nasal Cannula 2.0 28 10/22/18 19:24 Nasal Cannula 2.0 28 10/22/18 19:23 98 Nasal Cannula 2.0 28 10/22/18 19:22 76 18 98 Nasal Cannula 2.0 28 10/22/18 16:00 97.4 79 20 122/67 (85) 95 10/22/18 16:00 72 10/22/18 15:33 70 20 99 Nasal Cannula 2.0 28 10/22/18 15:24 69 20 98 Nasal Cannula 2.0 28 10/22/18 12:00 97.6 71 20 135/59 (84) 98 10/22/18 12:00 62 Intake and Output 10/22/18 10/23/18 19:00 07:00 Intake Total 700 ml Output Total 400 ml Balance 700 ml -400 ml Intake Oral 700 ml Output Urine Total 400 ml # Voids 6 Laboratory Tests 10/22/18 15:25: C-Reactive Protein, Quantitative 2.8H 10/23/18 04:45: White Blood Count 6.3, Red Blood Count 2.32L, Hemoglobin 7.8L, Hematocrit 23.7L , Mean Corpuscular Volume 102H, Mean Corpuscular Hemoglobin 33.7H, Mean Corpuscular Hemoglobin Concent 33.0, Red Cell Distribution Width 16.0H, Platelet Count 151, Mean Platelet Volume 6.0L, Neutrophils (%) (Auto) , Lymphocytes (%) (Auto) , Monocytes (%) (Auto) , Eosinophils (%) (Auto) , Basophils (%) (Auto) , Differential Total Cells Counted 100, Neutrophils % ( Manual) 79H, Lymphocytes % (Manual) 12L, Monocytes % (Manual) 8, Eosinophils % ( Manual) 1, Basophils % (Manual) 0, Band Neutrophils 0, Platelet Estimate Adequate, Platelet Morphology Normal, Anisocytosis 1+, Sodium Level 132L, Potassium Level 3.9, Chloride Level 94L, Carbon Dioxide Level 28, Anion Gap 10, Blood Urea Nitrogen 38H, Creatinine 4.0#H, Estimat Glomerular Filtration Rate , Glucose Level 101, Hemoglobin A1c 4.2L, Lactic Acid Level 0.60, Uric Acid 4.2, Calcium Level 7.9L, Phosphorus Level 4.7, Magnesium Level 2.0, Iron Level 36L, Total Iron Binding Capacity 153L, Percent Iron Saturation 24, Unsaturated Iron Binding 117, Ferritin 1339H, Total Bilirubin 0.4, Aspartate Amino Transf (AST/ SGOT) 25, Alanine Aminotransferase (ALT/SGPT) 26, Alkaline Phosphatase 111, Troponin I 0.035, Pro-B-Type Natriuretic Peptide > 66351D, Total Protein 5.6L, Albumin 2.2L, Globulin 3.4, Albumin/Globulin Ratio 0.6L, Triglycerides Level 98 , Cholesterol Level 130, LDL Cholesterol 82, HDL Cholesterol 43, Cholesterol/ HDL Ratio 3.0L, Vitamin B12 Level > 2000H, Folate 12.6, Thyroid Stimulating Hormone (TSH) 0.748 Height (Feet): 5 Height (Inches): 1.00 Weight (Pounds): 133 General Appearance: no apparent distress Cardiovascular: normal rate Respiratory/Chest: decreased breath sounds Abdomen: soft Objective no other changes Ady Gómez MD Oct 23, 2018 11:47
--- NOTE | 2018-10-23 11:54 | NUR ---
CASE MANAGEMENT:REVIEW 83 YR OLD MALE FROM HOME CC SOB PMH: ESRD ON HD T Sun SI: COPD. PLEURAL EFFUSION 98.3 118 23 145/58 93% ON RA H/H-8.4/25.2 BUN+20 CR+2.3 BNP>41701 IS: IV LEVAQUIN DUONEB HHN X6 ON 10/22/18 BLOOD CX CHEST XRAY : TO TELEMETRY UNIT 10/23/18 SI: H/H-7.8/23.7 IS: TRANSFUSE 2 UNIT PRBC'S : TELEMETRY INTERQUAL CRITERIA MET
--- NOTE | 2018-10-23 15:10 | NUR ---
NURSE NOTES: Blood product is verified with another RN. VSS. Blood transfusion started with 100ml/hr. Will continue to monitor.
--- NOTE | 2018-10-23 19:43 | NUR ---
HAND-OFF: Report given to FERNANDA Toscano. Patient is in stable condition. Endorsed plan of care.
--- NOTE | 2018-10-23 19:50 | NUR ---
NURSE NOTES: Recvd pt. Pt is awake and alert AOx4, Pt is sitting up in bed. Mostly Moh[place] speaking. Pt denies pain. Pt is on NC @ 2L with no sign of sob or resp distress. Bed in lowest position, call light within reach, will continue with plan of care.
[2018-10-23] MEDS: TraZODone 50mg tab ORAL SCH (21:50)
[2018-10-23] MEDS: Epogen (for ESRD on dialysis) SUBQ SCH (21:50)
[2018-10-23] MEDS: Cefepime HCl 1 GM in D5W 55 ML IVPB SCH (21:52)
[2018-10-24] VITALS: BP 145/80
--- NOTE | 2018-10-24 02:30 | Progress Note ---
DATE: 10/23/2018 CARDIOLOGY PROGRESS NOTE SUBJECTIVE: The patient has mild shortness of breath. No chest pain. Receiving hemodialysis with ultrafiltration. Blood pressure parameters are generally stable, one elevated level noted. PHYSICAL EXAMINATION: VITAL SIGNS: Blood pressure 134/52, pulse 70, respiratory rate 20, and afebrile. Monitored rhythm, atrial fibrillation. LUNGS: Coarse breath sounds. No wheezing. Few rales. HEART: Irregularly irregular rhythm. Normal S1, S2. A 1/6 systolic apical murmur. No rub. ABDOMEN: Soft. EXTREMITIES: Trace edema. LABORATORY DATA: White count 6.3 and hemoglobin 7.8. Potassium 3.9, BUN 38, and creatinine 4. Lactic acid less than 1. Troponin negative. Albumin 2.2. Pro-natriuretic peptide over 35,000. IMPRESSION: 1. Acute on chronic diastolic congestive heart failure. 2. Paroxysmal atrial fibrillation. 3. End-stage renal disease. 4. Healthcare acquired pneumonia. 5. Anemia, acute on chronic. 6. Pericardial effusion with no signs of tamponade. PLAN: 1. Hemodialysis with aggressive ultrafiltration, packed red blood cell transfusion. 2. Titrating anti-failure regimen. 3. No indication for pericardiocentesis. 4. Antimicrobials. 5. Respiratory hygiene. Luis Jade M.D. DR: JAMES JOB#: [id number] CC:
[2018-10-24] MEDS: Albuterol/Ipratropium 3ml neb HHN SCH ×6 (03:36→22:41)
[2018-10-24 04:00] VITALS: BP 166/66
--- NOTE | 2018-10-24 07:20 | NUR ---
NURSE NOTES: Received patient from FERNANDA Toscano.Patient in stable condition, No signs and symptoms of acute distress at this moment. Pt is awake and AOx4, Pt is sitting up in bed. Mostly Moh[place] speaking. Pt denies pain. Pt is on NC @ 2L with no sign of SOB. Bed in lowest position with two side rails up. Side table and call light within reach, will continue to monitor and follow plan of care.
--- NOTE | 2018-10-24 07:53 | General Progress Note ---
Assessment/Plan Problem List: (1) Pulmonary hypertension ICD Codes: I27.20 - Pulmonary hypertension, unspecified SNOMED: 84087696 (2) Hypoxemia ICD Codes: R09.02 - Hypoxemia SNOMED: 298992633 (3) Hypertensive kidney disease ICD Codes: I12.9 - Hypertensive chronic kidney disease with stage 1 through stage 4 chronic kidney disease, or unspecified chronic kidney disease SNOMED: 51387622 (4) COPD (chronic obstructive pulmonary disease) with emphysema ICD Codes: J43.9 - Emphysema, unspecified SNOMED: 23663501 (5) Shortness of breath ICD Codes: R06.02 - Shortness of breath SNOMED: 642248932 (6) COPD (chronic obstructive pulmonary disease) with chronic bronchitis ICD Codes: J44.9 - Chronic obstructive pulmonary disease, unspecified SNOMED: 188592010 (7) Acute respiratory failure ICD Codes: J96.00 - Acute respiratory failure SNOMED: 44994760 (8) Hepatic encephalopathy ICD Codes: K72.90 - Hepatic encephalopathy SNOMED: 78732811 (9) Fluid overload ICD Codes: E87.70 - Hypervolemia SNOMED: 47181840 (10) Hypertension ICD Codes: I10 - Hypertension SNOMED: 79896052 (11) Non-compliance with treatment ICD Codes: Z91.19 - Noncompliance with treatment SNOMED: 9491933 (12) Atrial fibrillation with rapid ventricular response ICD Codes: I48.91 - Atrial fibrillation with rapid ventricular response SNOMED: 897730156496816 Status: stable, progressing Assessment/Plan cont current rx o2 resp care epo/iron monitor for bleeding follow up repeat cbc monitor cxr HD with UF Subjective ROS Limited/Unobtainable: No Constitutional: Reports: malaise, weakness HEENT: Reports: no symptoms Cardiovascular: Reports: no symptoms Respiratory: Reports: orthopnea, SOB at rest Gastrointestinal/Abdominal: Reports: no symptoms Genitourinary: Reports: no symptoms Neurologic/Psychiatric: Reports: no symptoms Endocrine: Reports: no symptoms Hematologic/Lymphatic: Reports: no symptoms Allergies: Coded Allergies: BANANA (Verified Allergy, Severe, 09/05/18) GIL (Verified Allergy, Severe, 09/05/18) CARROT (Verified Allergy, Severe, 09/05/18) Dairy (Verified Allergy, Severe, 09/05/18) GRAPE (Verified Allergy, Severe, 09/05/18) Pork (Verified Allergy, Severe, 09/05/18) Potato (Verified Allergy, Severe, 08/12/18) All Systems: reviewed and negative except above Subjective still with sob. no chest pain no bleeding noted. Objective Last 24 Hour Vital Signs Date Time Temp Pulse Resp B/P (MAP) Pulse Ox O2 Delivery O2 Flow Rate FiO2 10/24/18 07:26 70 18 100 Nasal Cannula 3.0 32 10/24/18 07:16 85 18 95 Nasal Cannula 3.0 32 10/24/18 07:16 95 Nasal Cannula 3.0 32 10/24/18 07:16 Nasal Cannula 3.0 32 10/24/18 04:00 98.4 89 20 166/66 (99) 99 10/24/18 04:00 83 10/24/18 03:46 90 18 98 Nasal Cannula 3.0 32 10/24/18 03:36 78 20 98 Nasal Cannula 3.0 32 10/24/18 00:00 75 10/24/18 00:00 97.0 81 20 145/80 (101) 100 10/23/18 23:42 75 18 99 Nasal Cannula 2.0 28 10/23/18 23:31 76 20 98 Nasal Cannula 3.0 32 10/23/18 21:50 75 130/60 10/23/18 21:00 Nasal Cannula 2.0 10/23/18 20:00 75 10/23/18 20:00 97.9 67 20 130/60 (83) 99 10/23/18 19:52 72 18 100 Nasal Cannula 2.0 28 10/23/18 19:42 71 20 93 Nasal Cannula 3.0 32 10/23/18 19:42 93 Nasal Cannula 3.0 32 10/23/18 19:42 Nasal Cannula 3.0 32 10/23/18 17:20 97.6 76 20 140/62 (88) 99 10/23/18 16:07 79 18 100 Nasal Cannula 2.0 28 10/23/18 16:00 78 20 99 Nasal Cannula 2.0 28 10/23/18 16:00 59 10/23/18 15:25 97.5 67 20 122/61 (81) 99 10/23/18 15:10 97.5 66 20 117/53 (74) 99 10/23/18 12:00 97.3 63 20 111/53 (72) 99 10/23/18 12:00 65 10/23/18 10:38 Nasal Cannula 10/23/18 10:38 Nasal Cannula 10/23/18 09:00 Nasal Cannula 2.0 10/23/18 08:49 77 168/59 10/23/18 08:48 77 168/59 10/23/18 08:48 168/59 10/23/18 08:00 80 10/23/18 08:00 97.2 77 20 168/59 (95) 100 10/23/18 07:52 76 18 100 Nasal Cannula 2.0 28 Intake and Output 10/23/18 10/24/18 19:00 07:00 Intake Total 240 ml Output Total 250 ml 200 ml Balance -10 ml -200 ml Intake Oral 240 ml Output Urine Total 250 ml 200 ml # Voids 2 Height (Feet): 5 Height (Inches): 1.00 Weight (Pounds): 133 General Appearance: WD/WN, alert Neck: supple Cardiovascular: regular rhythm Respiratory/Chest: decreased breath sounds, crackles/rales Abdomen: normal bowel sounds, non tender, soft, no organomegaly Edema: no edema noted Arm (L), no edema noted Arm (R), no edema noted Leg (L), no edema noted Leg (R), no edema noted Pedal (L), no edema noted Pedal (R), no edema noted Generalized Neurologic: cane cutter II-XII grossly normal, alert, oriented x 3, responsive Bulmaro Perez MD Oct 24, 2018 07:53
[2018-10-24 08:00] VITALS: BP 108/65
[2018-10-24] MEDS: Docusate 100mg cap ORAL SCH ×3 (09:05→17:46)
[2018-10-24] MEDS: Eliquis 2.5mg tablet ORAL SCH ×2 (09:05→17:46)
[2018-10-24] MEDS: Imdur 30mg tab ORAL SCH (09:06)
[2018-10-24] MEDS: Carvedilol 12.5mg tab ORAL SCH (09:06)
[2018-10-24] MEDS: Allopurinol 100mg Tab ORAL SCH (09:07)
--- NOTE | 2018-10-24 09:55 | NUR ---
RADIOLOGY DEPT CHEST X-RAY DONE-P.DYE
[2018-10-24 10:52] LABS: BASOPHILS % (AUTO) 0.5 % (0.0-2.0); EOSINOPHILS % (AUTO) 1.2 % (0.0-3.0); HEMATOCRIT 29.2 % (42.0-52.0); HEMOGLOBIN 9.3 G/DL (14.2-18.0); MEAN CORPUSCULAR VOLUME 101 FL (80-99); MONOCYTES % (AUTO) 7.4 % (1.0-10.0); NEUTROPHILS % (AUTO) 76.9 % (45.0-75.0); PLATELET COUNT 138 K/UL (150-450); RED BLOOD COUNT 2.91 M/UL (4.70-6.10); RED CELL DISTRIBUTION WIDTH 16.2 % (11.6-14.8); WHITE BLOOD COUNT 5.8 K/UL (4.8-10.8)
[2018-10-24 11:14] LABS: PHOSPHORUS 4.1 MG/DL (2.5-4.9)
[2018-10-24 11:41] LABS: ALANINE AMINOTRANSFERASE 24 U/L (12-78); ALBUMIN 2.2 G/DL (3.4-5.0); ALBUMIN/GLOBULIN RATIO 0.7 (1.0-2.7); ALKALINE PHOSPHATASE 110 U/L (46-116); ANION GAP 10 mmol/L (5-15); ASPARTATE AMINO TRANSFERASE 26 U/L (15-37); BILIRUBIN,TOTAL 0.5 MG/DL (0.2-1.0); BLOOD UREA NITROGEN 34 mg/dL (7-18); CALCIUM 7.8 MG/DL (8.5-10.1); CARBON DIOXIDE 27 MMOL/L (21-32); CHLORIDE 96 MMOL/L (98-107); CREATININE 3.9 MG/DL (0.55-1.30); SODIUM 133 MMOL/L (136-145)
[2018-10-24 12:00] VITALS: BP 110/65
--- NOTE | 2018-10-24 12:47 | Diagnostic Imaging Report ---
Indication: Chest pain, shortness of breath Technique: XRAY Chest 1v Comparison: 10/21/2018; CT of the chest 09/26/2018 Findings: Stable cardiomegaly. Interstitial opacification/edema is again noted, slightly increased compared to the prior exam. There are patchy bilateral airspace opacities most pronounced at the right base. These are also increased. There is small bilateral pleural effusions. No pneumothorax. There are degenerative changes of the spine. Impression: Worsening aeration with increased interstitial and patchy bilateral airspace opacities compared to the prior exam. Findings likely related to worsening pulmonary edema. Superimposed pneumonia should be excluded clinically.
[2018-10-24] MEDS ORDERED: Vancomycin 1250mg/D5W 250ml IVPB SCH (13:00)
--- NOTE | 2018-10-24 13:09 | NUR ---
RD ASSESSMENT & RECOMMENDATIONS SEE CARE ACTIVITY FOR COMPLETE ASSESSMENT DAILY ESTIMATED NEEDS: Needs based on ESRD on HD, 60.5kg 30-35 kcals/kg 7748-3959 total kcals 1.2-1.8 g protein/kg 73-91 g total protein Fluid per MD, on HD NUTRITION DIAGNOSIS: 1) Increased kcal/pro needs R/T renal dysfunction as evidenced by ESRD dx, on HD. 2) Chewing difficulty R/T poor dentition as evidenced by pt w/ dentures, previous adm had requested pureed moist texture. CURRENT DIET: Renal soft easy chew PO DIET RECOMMENDATIONS: RENAL/ texture as tolerated ADDITIONAL RECOMMENDATIONS: * Calibrated bedscale or standing wt for accurate CBW (post HD for dry wt) * Nephrovite 1 tab daily as supplement * Per spouse, pt is NOT allergic to food items listed on the allergy list - pt was told to avoid them due to ESRD * Monitor lytes and renal fxn closely- ESRD dx * Continue Nepro 1 topher BID w/ variable PO intake .
--- NOTE | 2018-10-24 13:30 | Cardiology Report ---
APPROVED REPORT EXAM: Two-dimensional and M-mode echocardiogram with Doppler and color Doppler. INDICATION Pericardial Effusion M-Mode DIMENSIONS IVSd0.6 (0.7-1.1cm)Left Atrium (MM)4.9 (1.6-4.0cm) LVDd5.3 (3.5-5.6cm)Aortic Root3.4 (2.0-3.7cm) PWd1.3 (0.7-1.1cm)Aortic Cusp Exc.2.0 (1.5-2.0cm) LVDs3.4 (2.5-4.0cm) PWs1.3 cm Normal left ventricular chamber size, systolic function and wall motion. Left ventricular ejection fraction estimated to be 55 %. Mild left ventricular hypertrophy. Moderate to large circumferential pericardial effusion. No sign of tamponade. No diastolic RA or RV collapse noted. Moderate left atrial enlargement. Mild right atrial enlargement. Right ventricular size is within normal limits. Mild focal aortic valve sclerosis with adequate cusp excursion. Mildly thickened mitral valve leaflets with normal excursion. Mild mitral annulus and aortic root calcification. Normal pulmonic valve structure. Normal tricuspid valve structure. IVC measured at 2.1 cm with slight physiological collapse, suggestive of mildly increased RA pressure. A color flow and spectral Doppler study was performed and revealed: Mild aortic insufficiency. Moderate mitral regurgitation. Mitral inflow non-diagnostic due to Atrial Fibrillation. Moderate tricuspid regurgitation. Tricuspid systolic velocities suggests peak right ventricular systolic pressure of 43 mmHg, consistent with mild pulmonary hypertension. Pulmonic regurgitation present.
--- NOTE | 2018-10-24 14:30 | Nephrology Progress Note ---
Assessment/Plan Problem List: (1) ESRD (end stage renal disease) on dialysis (2) Fluid overload (3) COPD (chronic obstructive pulmonary disease) (4) Pericardial effusion (5) Pulmonary hypertension (6) Hypoxemia (7) Anemia in CKD (chronic kidney disease) Assessment Presents with respiratory distress and hypoxia Possiblities: CHF-Pul HTN- COPD (1) ESRD (end stage renal disease) on dialysis tue vibha sat (2) h/o Atrial fibrillation with rapid ventricular response (3) h/o Myocardial injury (4) Pericardial effusion (5) Fluid overload other Hypertension h/o Respiratory Arrest and Pneumonia and Hemoptysis ESRD Maulti infarct brain disease Pulm HTN Now DNR Plan HD 10/23 next 10/25 Optimize cardiac and pulmonary status transfused 1 unit parameters for bp meds CXR ? worsening edema Subjective ROS Limited/Unobtainable: No Constitutional: Reports: weakness Objective Objective Last 24 Hour Vital Signs Date Time Temp Pulse Resp B/P (MAP) Pulse Ox O2 Delivery O2 Flow Rate FiO2 10/24/18 12:00 98.0 82 18 110/65 (80) 97 10/24/18 10:56 75 18 100 Nasal Cannula 3.0 32 10/24/18 10:46 72 18 97 Nasal Cannula 3.0 32 10/24/18 09:06 84 108/65 10/24/18 09:06 108/65 10/24/18 09:06 84 108/65 10/24/18 09:00 Nasal Cannula 2.0 10/24/18 08:00 98.7 84 18 108/65 (79) 98 10/24/18 07:26 70 18 100 Nasal Cannula 3.0 32 10/24/18 07:16 85 18 95 Nasal Cannula 3.0 32 10/24/18 07:16 95 Nasal Cannula 3.0 32 10/24/18 07:16 Nasal Cannula 3.0 32 10/24/18 04:00 98.4 89 20 166/66 (99) 99 10/24/18 04:00 83 10/24/18 03:46 90 18 98 Nasal Cannula 3.0 32 10/24/18 03:36 78 20 98 Nasal Cannula 3.0 32 10/24/18 00:00 75 10/24/18 00:00 97.0 81 20 145/80 (101) 100 12/26/18 23:42 75 18 99 Nasal Cannula 2.0 28 10/23/18 23:31 76 20 98 Nasal Cannula 3.0 32 10/23/18 21:50 75 130/60 10/23/18 21:00 Nasal Cannula 2.0 10/23/18 20:00 75 10/23/18 20:00 97.9 67 20 130/60 (83) 99 10/23/18 19:52 72 18 100 Nasal Cannula 2.0 28 10/23/18 19:42 71 20 93 Nasal Cannula 3.0 32 10/23/18 19:42 93 Nasal Cannula 3.0 32 10/23/18 19:42 Nasal Cannula 3.0 32 10/23/18 17:20 97.6 76 20 140/62 (88) 99 10/23/18 16:07 79 18 100 Nasal Cannula 2.0 28 10/23/18 16:00 78 20 99 Nasal Cannula 2.0 28 10/23/18 16:00 59 10/23/18 15:25 97.5 67 20 122/61 (81) 99 10/23/18 15:10 97.5 66 20 117/53 (74) 99 Intake and Output 10/23/18 10/24/18 19:00 07:00 Intake Total 240 ml Output Total 250 ml 200 ml Balance -10 ml -200 ml Intake Oral 240 ml Output Urine Total 250 ml 200 ml # Voids 2 Laboratory Tests 10/24/18 10:35: White Blood Count 5.8, Red Blood Count 2.91L, Hemoglobin 9.3L, Hematocrit 29.2L , Mean Corpuscular Volume 101H, Mean Corpuscular Hemoglobin 31.9H, Mean Corpuscular Hemoglobin Concent 31.8L, Red Cell Distribution Width 16.2H, Platelet Count 138L, Mean Platelet Volume 5.2L, Neutrophils (%) (Auto) 76.9H, Lymphocytes (%) (Auto) 14.0L, Monocytes (%) (Auto) 7.4, Eosinophils (%) (Auto) 1.2, Basophils (%) (Auto) 0.5, Sodium Level 133L, Potassium Level 4.0, Chloride Level 96L, Carbon Dioxide Level 27, Anion Gap 10, Blood Urea Nitrogen 34H, Creatinine 3.9H, Estimat Glomerular Filtration Rate , Glucose Level 102, Calcium Level 7.8L, Phosphorus Level 4.1, Magnesium Level 1.9, Total Bilirubin 0.5, Aspartate Amino Transf (AST/SGOT) 26, Alanine Aminotransferase (ALT/SGPT) 24, Alkaline Phosphatase 110, Troponin I 0.029, C-Reactive Protein, Quantitative 2.2H, Pro-B-Type Natriuretic Peptide 64806H, Total Protein 5.3L, Albumin 2.2L, Globulin 3.1, Albumin/Globulin Ratio 0.7L, Random Vancomycin Level 6.7 Height (Feet): 5 Height (Inches): 1.00 Weight (Pounds): 133 General Appearance: no apparent distress Respiratory/Chest: decreased breath sounds Abdomen: soft Objective no other changes Ady Gómez MD Oct 24, 2018 14:30
[2018-10-24 16:00] VITALS: BP 118/62
[2018-10-24] MEDS ORDERED: Tubing Blood Filter IV ONE (16:08)
[2018-10-24] MEDS ORDERED: NS 275ml ONE (16:08)
[2018-10-24] MEDS ORDERED: Tubing IV Secondary IV ONE (16:08)
--- NOTE | 2018-10-24 19:15 | NUR ---
NURSE NOTES: Received patient from FERNANDA Vaughan. Patient on bed awake, IV site noted intact and patent. No complaints of pain at this time. Left upper arm fistula. +Bruit and +Thrill. Dialysis to be performed again in AM. GIULIANO Baxter, aware. On 2L NC. Call light within reach. Bed brakes engaged.
[2018-10-24 20:00] VITALS: BP 128/55
[2018-10-24] MEDS ORDERED: Carvedilol 12.5mg tab ORAL SCH (21:00)
[2018-10-24] MEDS: TraZODone 50mg tab ORAL SCH (21:02)
[2018-10-24] MEDS: Cefepime HCl 1 GM in D5W 55 ML IVPB SCH (21:03)
--- NOTE | 2018-10-24 22:30 | Progress Note ---
CARDIOLOGY PROGRESS NOTE DATE: 10/24/2018 SUBJECTIVE: The patient continues to have congestion and shortness of breath. He is on antimicrobials and hemodialysis with ultrafiltration. Echocardiogram revealed pericardial effusion unchanged with no signs of tamponade. Ejection fraction minimally depressed. PHYSICAL EXAMINATION: VITAL SIGNS: Blood pressure 166/66, pulse 89, and respirations 20. Afebrile. NECK: Jugular venous pressure elevated. No Kussmaul sign. LUNGS: Moderate breath sounds with rhonchi and rales. HEART: Irregularly irregular rhythm. Normal S1, S2. A 1/6 systolic apical murmur. ABDOMEN: Soft. EXTREMITIES: No edema. LABORATORY DATA: White count 5.8, hemoglobin 9.3. Sodium 133, potassium 4, bicarb 27, BUN 34, and creatinine 2.9. Troponin negative. Pro-natriuretic peptide is 25,000, which is slightly decreased. Chest x-ray today reveals worsening aeration and patchy infiltrates. Sputum is positive for MRSA and normal kodak. IMPRESSION: 1. Healthcare-acquired pneumonia. 2. Acute on chronic diastolic congestive heart failure. 3. End-stage renal disease. 4. Pericardial effusion. 5. Paroxysmal atrial fibrillation. 6. MRSA of the sputum. 7. Possible aspiration. 8. Chronic obstructive pulmonary disease. PLAN: 1. Continue hemodialysis with ultrafiltration. 2. We will maximize anti-failure therapy as tolerated. 3. Swallow evaluation. 4. Continue broad-spectrum antimicrobials. 5. Continue full anticoagulation for cardioembolic prophylaxis. 6. Not stable for lower level of care. 7. Monitor for clinical signs of worsening pericardial effusion. 8. Continue inhaled bronchodilators. Luis Jade M.D. DR: ANTOINETTE JOB#: [id number] CC:
[2018-10-25] VITALS: BP 145/63
[2018-10-25] MEDS: Albuterol/Ipratropium 3ml neb HHN SCH ×6 (02:45→22:37)
[2018-10-25 04:00] VITALS: BP 150/75
--- NOTE | 2018-10-25 07:21 | NUR ---
NURSE NOTES: Received patient from FERNANDA Qiu.Patient in stable condition, No signs and symptoms of acute distress at this moment. Pt is awake and AOx4, sitting up in bed. Mostly Khmer speaking. Pt denies pain. Pt is on NC @ 2L with no sign of SOB. Dialysis will be done today, [facility] confirmed with us. Bed in lowest position with two side rails up. Side table and call light within reach, will continue to monitor and follow plan of care.
--- NOTE | 2018-10-25 07:33 | NUR ---
HAND-OFF: Report given to Ellaheh. MICHAEL.
[2018-10-25 08:00] VITALS: BP 167/62
[2018-10-25] MEDS: Allopurinol 100mg Tab ORAL SCH (09:00)
[2018-10-25] MEDS: Eliquis 2.5mg tablet ORAL SCH ×2 (09:00→18:30)
[2018-10-25] MEDS: Imdur 30mg tab ORAL SCH (09:00)
[2018-10-25] MEDS: Carvedilol 25mg Tab ORAL SCH ×2 (09:00→21:19)
--- NOTE | 2018-10-25 09:05 | General Progress Note ---
Assessment/Plan Problem List: (1) Pulmonary hypertension ICD Codes: I27.20 - Pulmonary hypertension, unspecified SNOMED: 45973544 (2) Hypoxemia ICD Codes: R09.02 - Hypoxemia SNOMED: 819165428 (3) Hypertensive kidney disease ICD Codes: I12.9 - Hypertensive chronic kidney disease with stage 1 through stage 4 chronic kidney disease, or unspecified chronic kidney disease SNOMED: 82134587 (4) COPD (chronic obstructive pulmonary disease) with emphysema ICD Codes: J43.9 - Emphysema, unspecified SNOMED: 66246938 (5) Shortness of breath ICD Codes: R06.02 - Shortness of breath SNOMED: 377737969 (6) COPD (chronic obstructive pulmonary disease) with chronic bronchitis ICD Codes: J44.9 - Chronic obstructive pulmonary disease, unspecified SNOMED: 000769538 (7) Acute respiratory failure ICD Codes: J96.00 - Acute respiratory failure SNOMED: 58655817 (8) Hepatic encephalopathy ICD Codes: K72.90 - Hepatic encephalopathy SNOMED: 35768615 (9) Fluid overload ICD Codes: E87.70 - Hypervolemia SNOMED: 68916895 (10) Hypertension ICD Codes: I10 - Hypertension SNOMED: 75591299 (11) Non-compliance with treatment ICD Codes: Z91.19 - Noncompliance with treatment SNOMED: 9312290 (12) Atrial fibrillation with rapid ventricular response ICD Codes: I48.91 - Atrial fibrillation with rapid ventricular response SNOMED: 269678681517717 Status: stable Assessment/Plan cont current rx o2 resp care epo/iron monitor for bleeding follow up repeat cbc monitor cxr HD with UF reasses for dc after HD. Currently pt states hes "not better." may need additional HD Subjective ROS Limited/Unobtainable: No Constitutional: Reports: malaise, weakness HEENT: Reports: no symptoms Cardiovascular: Reports: no symptoms Respiratory: Reports: no symptoms Gastrointestinal/Abdominal: Reports: no symptoms Genitourinary: Reports: no symptoms Neurologic/Psychiatric: Reports: no symptoms Endocrine: Reports: no symptoms Hematologic/Lymphatic: Reports: no symptoms Allergies: Coded Allergies: BANANA (Verified Allergy, Severe, 09/05/18) GIL (Verified Allergy, Severe, 09/05/18) CARROT (Verified Allergy, Severe, 09/05/18) Dairy (Verified Allergy, Severe, 09/05/18) GRAPE (Verified Allergy, Severe, 09/05/18) Pork (Verified Allergy, Severe, 09/05/18) Potato (Verified Allergy, Severe, 08/12/18) All Systems: reviewed and negative except above Subjective still with sob. no chest pain. "not better." no bleeding noted. due for HD today Objective Last 24 Hour Vital Signs Date Time Temp Pulse Resp B/P (MAP) Pulse Ox O2 Delivery O2 Flow Rate FiO2 10/25/18 09:00 89 167/62 10/25/18 09:00 89 167/62 10/25/18 09:00 167/62 10/25/18 08:00 97.7 89 20 167/62 (97) 96 10/25/18 07:51 78 20 100 Nasal Cannula 2.0 10/25/18 07:47 Nasal Cannula 2.0 10/25/18 07:47 98 Nasal Cannula 2.0 10/25/18 07:47 79 20 98 Nasal Cannula 2.0 10/25/18 04:00 98.0 88 19 150/75 (100) 96 10/25/18 03:40 90 10/25/18 02:52 77 18 100 Nasal Cannula 2.0 10/25/18 02:45 74 18 98 Nasal Cannula 2.0 10/25/18 00:00 96.5 81 18 145/63 (90) 95 10/24/18 23:19 73 10/24/18 22:50 79 18 100 Nasal Cannula 2.0 10/24/18 22:41 81 18 97 Nasal Cannula 2.0 10/24/18 21:02 81 128/55 10/24/18 21:00 Nasal Cannula 2.0 10/24/18 20:04 78 10/24/18 20:00 97.5 81 18 128/55 (79) 98 10/24/18 19:38 88 18 99 Nasal Cannula 2.0 10/24/18 19:33 Nasal Cannula 2.0 10/24/18 19:33 98 Nasal Cannula 2.0 10/24/18 19:31 86 18 98 Nasal Cannula 2.0 10/24/18 16:00 98.5 79 18 118/62 (80) 98 10/24/18 16:00 70 12/27/18 15:25 73 18 100 Nasal Cannula 3.0 32 10/24/18 15:15 66 18 98 Nasal Cannula 3.0 32 10/24/18 12:00 98.0 82 18 110/65 (80) 97 10/24/18 12:00 79 10/24/18 10:56 75 18 100 Nasal Cannula 3.0 32 10/24/18 10:46 72 18 97 Nasal Cannula 3.0 32 10/24/18 09:06 84 108/65 10/24/18 09:06 108/65 10/24/18 09:06 84 108/65 Intake and Output 10/24/18 10/25/18 19:00 07:00 Intake Total 860 ml Balance 860 ml Intake Oral 860 ml # Voids 5 2 Laboratory Tests 10/24/18 10:35: White Blood Count 5.8, Red Blood Count 2.91L, Hemoglobin 9.3L, Hematocrit 29.2L , Mean Corpuscular Volume 101H, Mean Corpuscular Hemoglobin 31.9H, Mean Corpuscular Hemoglobin Concent 31.8L, Red Cell Distribution Width 16.2H, Platelet Count 138L, Mean Platelet Volume 5.2L, Neutrophils (%) (Auto) 76.9H, Lymphocytes (%) (Auto) 14.0L, Monocytes (%) (Auto) 7.4, Eosinophils (%) (Auto) 1.2, Basophils (%) (Auto) 0.5, Sodium Level 133L, Potassium Level 4.0, Chloride Level 96L, Carbon Dioxide Level 27, Anion Gap 10, Blood Urea Nitrogen 34H, Creatinine 3.9H, Estimat Glomerular Filtration Rate , Glucose Level 102, Calcium Level 7.8L, Phosphorus Level 4.1, Magnesium Level 1.9, Total Bilirubin 0.5, Aspartate Amino Transf (AST/SGOT) 26, Alanine Aminotransferase (ALT/SGPT) 24, Alkaline Phosphatase 110, Troponin I 0.029, C-Reactive Protein, Quantitative 2.2H, Pro-B-Type Natriuretic Peptide 61991T, Total Protein 5.3L, Albumin 2.2L, Globulin 3.1, Albumin/Globulin Ratio 0.7L, Random Vancomycin Level 6.7 Height (Feet): 5 Height (Inches): 1.00 Weight (Pounds): 134 Objective General Appearance: WD/WN, alert Neck: supple Cardiovascular: regular rhythm Respiratory/Chest: decreased breath sounds, crackles/rales Abdomen: normal bowel sounds, non tender, soft, no organomegaly Edema: no edema noted Arm (L), no edema noted Arm (R), no edema noted Leg (L), no edema noted Leg (R), no edema noted Pedal (L), no edema noted Pedal (R), no edema noted Generalized Neurologic: sulky driver II-XII grossly normal, alert, oriented x 3, responsive Bulmaro Perez MD Oct 25, 2018 09:05
[2018-10-25] MEDS: Docusate 100mg cap ORAL SCH ×3 (10:00→18:30)
[2018-10-25 10:06] LABS: ALANINE AMINOTRANSFERASE 25 U/L (12-78); ALBUMIN 2.3 G/DL (3.4-5.0); ALBUMIN/GLOBULIN RATIO 0.7 (1.0-2.7); ALKALINE PHOSPHATASE 110 U/L (46-116); ANION GAP 12 mmol/L (5-15); ASPARTATE AMINO TRANSFERASE 30 U/L (15-37); BILIRUBIN,TOTAL 0.5 MG/DL (0.2-1.0); BLOOD UREA NITROGEN 52 mg/dL (7-18); CALCIUM 7.9 MG/DL (8.5-10.1); CARBON DIOXIDE 24 MMOL/L (21-32); CHLORIDE 95 MMOL/L (98-107); CREATININE 4.6 MG/DL (0.55-1.30); POTASSIUM 4.8 MMOL/L (3.5-5.1); SODIUM 131 MMOL/L (136-145)
[2018-10-25 10:07] LABS: BASOPHILS % (AUTO) 0.6 % (0.0-2.0); EOSINOPHILS % (AUTO) 1.4 % (0.0-3.0); HEMOGLOBIN 8.6 G/DL (14.2-18.0); LYMPHOCYTES % (AUTO) 12.4 % (20.0-45.0); MEAN CORPUSCULAR VOLUME 100 FL (80-99); MONOCYTES % (AUTO) 7.5 % (1.0-10.0); NEUTROPHILS % (AUTO) 78.1 % (45.0-75.0); PLATELET COUNT 125 K/UL (150-450); RED CELL DISTRIBUTION WIDTH 16.4 % (11.6-14.8); WHITE BLOOD COUNT 5.4 K/UL (4.8-10.8)
[2018-10-25 10:15] LABS: PHOSPHORUS 4.3 MG/DL (2.5-4.9)
[2018-10-25 12:00] VITALS: BP 137/66
--- NOTE | 2018-10-25 12:59 | Nephrology Progress Note ---
Assessment/Plan Problem List: (1) ESRD (end stage renal disease) on dialysis (2) Fluid overload (3) COPD (chronic obstructive pulmonary disease) (4) Pericardial effusion (5) Pulmonary hypertension (6) Hypoxemia (7) Anemia in CKD (chronic kidney disease) Assessment Presents with respiratory distress and hypoxia Possiblities: CHF-Pul HTN- COPD (1) ESRD (end stage renal disease) on dialysis tue vibha sat (2) h/o Atrial fibrillation with rapid ventricular response (3) h/o Myocardial injury (4) Pericardial effusion (5) Fluid overload other Hypertension h/o Respiratory Arrest and Pneumonia and Hemoptysis ESRD Maulti infarct brain disease Pulm HTN Now DNR Plan HD 10/23 next 10/25- on dialysis now tolerating well. BP check and BP med adjustment Optimize cardiac and pulmonary status transfused 1 unit parameters for bp meds CXR ? worsening edema Subjective ROS Limited/Unobtainable: No Constitutional: Reports: malaise Objective Objective Last 24 Hour Vital Signs Date Time Temp Pulse Resp B/P (MAP) Pulse Ox O2 Delivery O2 Flow Rate FiO2 10/25/18 11:00 81 22 99 Nasal Cannula 2.0 10/25/18 10:53 78 20 98 Nasal Cannula 2.0 10/25/18 09:00 89 167/10/25/18 09:00 89 167/62 10/25/18 09:00 167/62 10/25/18 08:00 97.7 89 20 167/62 (97) 96 10/25/18 07:51 78 20 100 Nasal Cannula 2.0 10/25/18 07:47 Nasal Cannula 2.0 10/25/18 07:47 98 Nasal Cannula 2.0 10/25/18 07:47 79 20 98 Nasal Cannula 2.0 10/25/18 04:00 98.0 88 19 150/75 (100) 96 10/25/18 03:40 90 10/25/18 02:52 77 18 100 Nasal Cannula 2.0 10/25/18 02:45 74 18 98 Nasal Cannula 2.0 10/25/18 00:00 96.5 81 18 145/63 (90) 95 10/24/18 23:19 73 10/24/18 22:50 79 18 100 Nasal Cannula 2.0 28 12/27/18 22:41 81 18 97 Nasal Cannula 2.0 28 10/24/18 21:02 81 128/55 10/24/18 21:00 Nasal Cannula 2.0 10/24/18 20:04 78 10/24/18 20:00 97.5 81 18 128/55 (79) 98 10/24/18 19:38 88 18 99 Nasal Cannula 2.0 28 10/24/18 19:33 Nasal Cannula 2.0 28 10/24/18 19:33 98 Nasal Cannula 2.0 28 10/24/18 19:31 86 18 98 Nasal Cannula 2.0 28 10/24/18 16:00 98.5 79 18 118/62 (80) 98 10/24/18 16:00 70 10/24/18 15:25 73 18 100 Nasal Cannula 3.0 32 10/24/18 15:15 66 18 98 Nasal Cannula 3.0 32 Intake and Output 10/24/18 10/25/18 19:00 07:00 Intake Total 860 ml Balance 860 ml Intake Oral 860 ml # Voids 5 2 Laboratory Tests 10/25/18 09:35: Sodium Level 131L, Potassium Level 4.8, Chloride Level 95L, Carbon Dioxide Level 24, Anion Gap 12, Blood Urea Nitrogen 52H, Creatinine 4.6H, Estimat Glomerular Filtration Rate , Glucose Level 103, Calcium Level 7.9L, Phosphorus Level 4.3, Magnesium Level 2.0, Total Bilirubin 0.5, Aspartate Amino Transf (AST /SGOT) 30, Alanine Aminotransferase (ALT/SGPT) 25, Alkaline Phosphatase 110, Pro -B-Type Natriuretic Peptide > 00723X, Total Protein 5.5L, Albumin 2.3L, Globulin 3.2, Albumin/Globulin Ratio 0.7L, Random Vancomycin Level 17.8 10/25/18 09:55: White Blood Count 5.4, Red Blood Count 2.60L, Hemoglobin 8.6L, Hematocrit 26.0L , Mean Corpuscular Volume 100H, Mean Corpuscular Hemoglobin 33.1H, Mean Corpuscular Hemoglobin Concent 33.1, Red Cell Distribution Width 16.4H, Platelet Count 125L, Mean Platelet Volume 5.0L, Neutrophils (%) (Auto) 78.1H, Lymphocytes (%) (Auto) 12.4L, Monocytes (%) (Auto) 7.5, Eosinophils (%) (Auto) 1.4, Basophils (%) (Auto) 0.6 Height (Feet): 5 Height (Inches): 1.00 Weight (Pounds): 134 General Appearance: no apparent distress Respiratory/Chest: decreased breath sounds Abdomen: soft Objective no other changes Ady Gómez MD Oct 25, 2018 12:59
[2018-10-25] MEDS ORDERED: Vancomycin 1gm/D5W 275ml IVPB SCH ×2 (13:00)
--- NOTE | 2018-10-25 13:28 | NUR ---
ST NOTE: BEDSIDE SWALLOW EVAL RECEIVED BEDSIDE SWALLOW EVAL CHART REVIEWED PRIOR THE EVALUATION PT IS A 83-YEAR-OLD [place]-SPEAKING MALE WHO WAS ADMITTED DUE TO SHORTNESS OF BREATH. DYSPHAGIA RISK FACTORS: COPD, ACUTE RESP FAILURE, PNA, SOB, H/O CVA, DEMENTIA, H/O DYSPHAGIA, CHF, HTN, A-FIB. PLOF: PT LIVES AT HOME WITH FAMILY. PER VIDEOSWALLOW STUDY AT [facility] [place] ON 08/15/18: PT PRESENTS WITH MODERATE OROPHARYNGEAL DYSPHAGIA CHARACTERIZED BY INCREASED ORAL TRANSIT TIME, OROPHARYNGEAL TRANSIT TIME AND ORAL RESIDUE DUE TO SENSORIMOTOR DEFICITS. DEEP TRACE LARYNGEAL PENETRATION WITH THIN(TSP) ON THE FIRST WARM UP TRIAL DUE TO DELAYED SWALLOW, REDUCED HYO-LARYNGEAL ELEVATION/EXCURSION AND REDUCED LARYNGEAL VESTIBULE CLOSURE. MILD TO MODERATE PYRIFORM SINUSES WAS NOTED DUE TO REDUCED HYO-LARYNGEAL ELEVATION/EXCURSION; MILD TO MODERATE TONGUE BASE AND VALLECULAR RESIDUE WAS ALSO MARKED SECONDARY TO REDUCED TONGUE BASE RETRACTION AND REDUCED(PARTIAL) INVERSION OF EPIGLOTTIC MOVEMENT. CRICOPHARYNGEAL BAR WAS NOTED AT C5 TO C6 BUT NO OBSTRUCTION FLOW WAS NOTED. PLEASE REFER TO RADIOLOGIST REPORT FOR DETAILS. NO SIGNIFICANT ASPIRATION WAS NOTED WITH ALL CONSISTENCIES BUT HAS HIGH RISK DUE TO PHARYNGEAL RESIDUE AND PT'S OVERALL MEDICAL CONDITIONS. PT BENEFITS FROM BREATH HOLD WITH EFFORTFUL SWALLOW, SWALLOW X 2 TO 3 TIMES. ATTEMPTED HEAD TURN TO L AND R BUT NO SIGNIFICANTLY DIFFERENT. RECOMMENDATIONS: 1. PT WANTS TO EAT/DRINK BY MOUTH. FOR QUALITY OF LIFE, CONTINUE ORAL DIET. DOWNGRADED DIET TO RENAL LIQUIFIED PUREED, LIKE NECTAR THICK SOUP CONSISTENCY WITH NECTAR THICK LIQUIDS. 2. STRICT ASPIRATION/REFLUX PRECAUTIONS WITH 1TO1 DIRECT SUPERVISION. CURRENT STATUS: PT SEEN AT BEDSIDE WITH AT BEDSIDE. ALERT, COOPERATIVE, FOLLOWS DIRECTIONS, NC(2L) GIVEN PO TRIALS: THIN(TSP), NECTAR THICK(TSP) AND PUREE, PT DOESN'T WANT MASTICATED SOLID AT THIS TIME. SOFT VOICE AND DECREASED LOUDNESS WAS NOTED. INITIAL IMPRESSION: PROBABLE PERSISTENT MODERATE OR WORSENED OROPHARYNGEAL DYSPHAGIA PT HAS UPPER AND LOWER DENTURES. MILD INCREASED ORAL TRANSIT TIME AND OROPAHRYNGEAL TRANSIT TIME FAIR LARYNGEAL ELEVATION, MILD THROAT CLEARING WITH THIN LIQUIDS DUE PT HAS H/O DYSPHAGIA AND CURRENT RESPIRATORY STATUS, PT HAS HIGH RISK FOR ASPIRATION. RECOMMENDATIONS: 1. FOR QUALITY OF LIFE, CONTINUE ORAL DIET CHANGED DIET TO MECH SOFT(GROUND) WITH NECTAR THICK LIQUIDS 2. STRICT ASPIRATION/REFLUX PRECAUTIONS WITH 1TO1 DIRECT SUPERVISION 3. CONSIDER REPEAT VIDEOSWALLOW STUDY IF NEEDED. D/W RN, JAMEEL. POSTED ASPIRATION/REFLUX PRECAUTIONS SIGN.
--- NOTE | 2018-10-25 14:26 | NUR ---
CASE MANAGEMENT:REVIEW 10/25/18 SI: COPD. ACUTE RESP FAILURE HEPATIC ENCEPHALOPATHY. AFIB 97.9 83 20 137/66 97% ON 2L/NC H/H-8.6/26.0 PLT-125 NA-131 BUN+52 CR+4.6 IS: IV VANCOMYCIN X1 IV CEFEPIME Q24 PROCARDIA XL PO QD COREG PO Q12 PROCRIT SQ MWF : TELEMETRY STATUS DCP: PATIENT IS FROM HOME PLAN: NO AVAILABLE MALE BEDS AT [facility] ~ SPOKE WITH SIERRA
--- NOTE | 2018-10-25 14:33 | NUR ---
DISCHARGE PLAN SPOKE WITH [facility] AT [facility]...NO MALE BEDS AVAILABLE
[2018-10-25 16:00] VITALS: BP 117/49
--- NOTE | 2018-10-25 19:21 | NUR ---
HAND-OFF: Report given to FERNANDA Qiu.
--- NOTE | 2018-10-25 19:30 | NUR ---
NURSE NOTES: Received patient from FERNANDA Vaughan. Patient is on bed awake and able to make needs known. No complaints of pain at this time. Bed brakes engaged. Call light within reach.
[2018-10-25 20:00] VITALS: BP 120/51
[2018-10-25] MEDS: Epogen (for ESRD on dialysis) SUBQ SCH (21:19)
[2018-10-25] MEDS: TraZODone 50mg tab ORAL SCH (21:19)
[2018-10-25] MEDS: Cefepime HCl 1 GM in D5W 55 ML IVPB SCH (21:21)
--- NOTE | 2018-10-25 22:30 | Progress Note ---
DATE: 10/25/2018 CARDIOLOGY PROGRESS NOTE SUBJECTIVE: The patient continues to feel short of breath. No chest pain. He does not feel better. He states hemodialysis is planned today. PHYSICAL EXAMINATION: VITAL SIGNS: Blood pressure 117/49, pulse 69, respiratory rate 20, and afebrile. LUNGS: Bilateral breath sounds. Scattered rales. HEART: Irregularly irregular rhythm. Normal S1 and S2. 1/6 systolic apical murmur. ABDOMEN: Soft. EXTREMITIES: Trace edema. LABORATORY DATA: White count 5.4 and hemoglobin 8.6. Potassium 4.8, BUN 52, and creatinine 4.6. Pro-natriuretic peptide is over 35,000. IMPRESSION: 1. Acute on chronic diastolic congestive heart failure. 2. Pericardial effusion. 3. Severe protein-calorie malnutrition. 4. End-stage renal disease. 5. Paroxysmal atrial fibrillation. 6. Healthcare-acquired pneumonia. PLAN: 1. Needs additional ultrafiltration. 2. Cardiac therapies, maximize. 3. If blood pressure will tolerate, I will advance therapy further. 4. Continue to monitor volume status and cardiorenal parameters closely. 5. Continue empiric antimicrobials and respiratory hygiene. 6. Continue cardioembolic prophylaxis with apixaban. Luis Jade M.D. DR: HECTOR JOB#: [id number] CC:
--- NOTE | 2018-10-25 22:48 | NUR ---
NURSE NOTES: IV site on his right hand is leaking, taken out at this time.
[2018-10-26] VITALS: BP 126/65
[2018-10-26] MEDS: Albuterol/Ipratropium 3ml neb HHN SCH ×5 (03:41→20:15)
[2018-10-26 04:00] VITALS: BP 138/57
--- NOTE | 2018-10-26 07:19 | NUR ---
HAND-OFF: Report given to FERNANDA Chan. Endorsed plan of care.
--- NOTE | 2018-10-26 07:49 | NUR ---
NURSE NOTES: Received report from Viviana Qiu. Pt is sitting up in bed receiving breathing treatment. Bed is in lowest position, side rails up X2, and call light is within reach. Will continue to monitor.
[2018-10-26 08:00] VITALS: BP 134/58
[2018-10-26] MEDS: Carvedilol 25mg Tab ORAL SCH ×2 (08:29→21:15)
[2018-10-26] MEDS: Imdur 30mg tab ORAL SCH (08:29)
[2018-10-26] MEDS: Eliquis 2.5mg tablet ORAL SCH ×2 (08:29→17:08)
[2018-10-26] MEDS: Docusate 100mg cap ORAL SCH ×3 (08:29→17:08)
[2018-10-26] MEDS: Allopurinol 100mg Tab ORAL SCH (08:30)
[2018-10-26 12:00] VITALS: BP 116/56
--- NOTE | 2018-10-26 14:07 | Nephrology Progress Note ---
Assessment/Plan Problem List: (1) ESRD (end stage renal disease) on dialysis (2) Fluid overload (3) COPD (chronic obstructive pulmonary disease) (4) Pericardial effusion (5) Pulmonary hypertension (6) Hypoxemia (7) Anemia in CKD (chronic kidney disease) Assessment Presents with respiratory distress and hypoxia Possiblities: CHF-Pul HTN- COPD (1) ESRD (end stage renal disease) on dialysis tue vibha sat (2) h/o Atrial fibrillation with rapid ventricular response (3) h/o Myocardial injury (4) Pericardial effusion (5) Fluid overload other Hypertension h/o Respiratory Arrest and Pneumonia and Hemoptysis ESRD Maulti infarct brain disease Pulm HTN Now DNR Plan HD 10/23 next 10/25- next 10/27 and next 2 days dialysis BP check and BP med adjustment Optimize cardiac and pulmonary status transfused 1 unit parameters for bp meds CXR ? worsening edema Subjective ROS Limited/Unobtainable: No Objective Objective Last 24 Hour Vital Signs Date Time Temp Pulse Resp B/P (MAP) Pulse Ox O2 Delivery O2 Flow Rate FiO2 10/26/18 12:00 77 10/26/18 12:00 97.5 79 16 116/56 (76) 100 10/26/18 10:50 86 20 99 Nasal Cannula 2.0 10/26/18 10:42 83 20 97 Nasal Cannula 2.0 10/26/18 09:00 Nasal Cannula 2.0 10/26/18 08:30 84 134/58 10/26/18 08:29 84 134/58 10/26/18 08:29 134/58 10/26/18 08:00 73 10/26/18 08:00 97.5 77 18 134/58 (83) 100 10/26/18 07:34 100 Nasal Cannula 2.0 10/26/18 07:34 Nasal Cannula 2.0 10/26/18 07:25 81 18 99 Nasal Cannula 2.0 10/26/18 07:15 80 22 100 Nasal Cannula 2.0 10/26/18 04:00 97.9 84 18 138/57 (84) 99 10/26/18 03:54 80 20 100 Nasal Cannula 2.0 10/26/18 03:51 81 10/26/18 03:43 85 22 96 Nasal Cannula 2.0 28 12/29/18 00:00 97.5 83 18 126/65 (85) 97 10/25/18 23:45 75 10/25/18 22:46 66 16 100 Nasal Cannula 2.0 28 10/25/18 22:36 66 18 99 Nasal Cannula 2.0 28 10/25/18 21:19 68 120/51 10/25/18 21:00 Nasal Cannula 2.0 10/25/18 20:00 97.3 68 18 120/51 (74) 98 10/25/18 19:11 58 18 99 Nasal Cannula 2.0 28 10/25/18 19:03 97 Nasal Cannula 2.0 28 10/25/18 19:03 Nasal Cannula 2.0 28 10/25/18 19:02 58 10/25/18 19:02 67 20 97 Nasal Cannula 2.0 28 10/25/18 16:00 72 10/25/18 16:00 97.0 69 20 117/49 (71) 99 10/25/18 15:18 79 20 99 Nasal Cannula 2.0 28 10/25/18 15:10 74 20 98 Nasal Cannula 2.0 28 Intake and Output 10/25/18 10/26/18 19:00 07:00 Intake Total 390 ml 110 ml Output Total 2000 ml Balance -1610 ml 110 ml Intake Oral 390 ml IV Total 110 ml Hemodialysis UF 2000 ml Height (Feet): 5 Height (Inches): 1.00 Weight (Pounds): 137 General Appearance: no apparent distress Cardiovascular: normal rate Respiratory/Chest: decreased breath sounds Abdomen: soft Objective no other changes Ady Gómez MD Oct 26, 2018 14:07
--- NOTE | 2018-10-26 14:54 | NUR ---
NURSE NOTES: Called [facility] to schedule appt for 10/27/18. Derian, called to confirm HD for patient tomorrow.
--- NOTE | 2018-10-26 15:58 | General Progress Note ---
Assessment/Plan Problem List: (1) Pulmonary hypertension ICD Codes: I27.20 - Pulmonary hypertension, unspecified SNOMED: 05651070 (2) Hypoxemia ICD Codes: R09.02 - Hypoxemia SNOMED: 761423350 (3) Hypertensive kidney disease ICD Codes: I12.9 - Hypertensive chronic kidney disease with stage 1 through stage 4 chronic kidney disease, or unspecified chronic kidney disease SNOMED: 90114189 (4) COPD (chronic obstructive pulmonary disease) with emphysema ICD Codes: J43.9 - Emphysema, unspecified SNOMED: 21389375 (5) Shortness of breath ICD Codes: R06.02 - Shortness of breath SNOMED: 443549615 (6) COPD (chronic obstructive pulmonary disease) with chronic bronchitis ICD Codes: J44.9 - Chronic obstructive pulmonary disease, unspecified SNOMED: 700099349 (7) Acute respiratory failure ICD Codes: J96.00 - Acute respiratory failure SNOMED: 01094562 (8) Hepatic encephalopathy ICD Codes: K72.90 - Hepatic encephalopathy SNOMED: 83519801 (9) Fluid overload ICD Codes: E87.70 - Hypervolemia SNOMED: 14706284 (10) Hypertension ICD Codes: I10 - Hypertension SNOMED: 14123683 (11) Non-compliance with treatment ICD Codes: Z91.19 - Noncompliance with treatment SNOMED: 7369604 (12) Atrial fibrillation with rapid ventricular response ICD Codes: I48.91 - Atrial fibrillation with rapid ventricular response SNOMED: 275568838323316 Status: stable, progressing Assessment/Plan cont current rx o2 resp care epo/iron monitor for bleeding follow up repeat cbc monitor cxr HD with UF check echo check duplex consider v/q scan or CTPA to r/o PE Subjective ROS Limited/Unobtainable: No Constitutional: Reports: malaise, weakness HEENT: Reports: no symptoms Cardiovascular: Reports: no symptoms Respiratory: Reports: shortness of breath Gastrointestinal/Abdominal: Reports: no symptoms Genitourinary: Reports: no symptoms Neurologic/Psychiatric: Reports: no symptoms Endocrine: Reports: no symptoms Hematologic/Lymphatic: Reports: anemia Allergies: Coded Allergies: BANANA (Verified Allergy, Severe, 09/05/18) GIL (Verified Allergy, Severe, 09/05/18) CARROT (Verified Allergy, Severe, 09/05/18) Dairy (Verified Allergy, Severe, 09/05/18) GRAPE (Verified Allergy, Severe, 09/05/18) Pork (Verified Allergy, Severe, 09/05/18) Potato (Verified Allergy, Severe, 08/12/18) All Systems: reviewed and negative except above Subjective still with sob. no chest pain. "worse" no bleeding noted. d/w family at the bedside. they do not feel pt is any better. no fever or chills. no cough. still cannot ambulate or lie flat without significant sob. Objective Last 24 Hour Vital Signs Date Time Temp Pulse Resp B/P (MAP) Pulse Ox O2 Delivery O2 Flow Rate FiO2 10/26/18 15:51 78 20 100 Nasal Cannula 2.0 10/26/18 15:44 69 18 98 Nasal Cannula 2.0 10/26/18 12:00 77 10/26/18 12:00 97.5 79 16 116/56 (76) 100 10/26/18 10:50 86 20 99 Nasal Cannula 2.0 10/26/18 10:42 83 20 97 Nasal Cannula 2.0 10/26/18 09:00 Nasal Cannula 2.0 10/26/18 08:30 84 134/58 10/26/18 08:29 84 134/58 10/26/18 08:29 134/58 10/26/18 08:00 73 10/26/18 08:00 97.5 77 18 134/58 (83) 100 10/26/18 07:34 100 Nasal Cannula 2.0 10/26/18 07:34 Nasal Cannula 2.0 10/26/18 07:25 81 18 99 Nasal Cannula 2.0 10/26/18 07:15 80 22 100 Nasal Cannula 2.0 10/26/18 04:00 97.9 84 18 138/57 (84) 99 10/26/18 03:54 80 20 100 Nasal Cannula 2.0 10/26/18 03:51 81 10/26/18 03:43 85 22 96 Nasal Cannula 2.0 10/26/18 00:00 97.5 83 18 126/65 (85) 97 10/25/18 23:45 75 10/25/18 22:46 66 16 100 Nasal Cannula 2.0 10/25/18 22:36 66 18 99 Nasal Cannula 2.0 10/25/18 21:19 68 120/51 10/25/18 21:00 Nasal Cannula 2.0 10/25/18 20:00 97.3 68 18 120/51 (74) 98 10/25/18 19:11 58 18 99 Nasal Cannula 2.0 28 10/25/18 19:03 97 Nasal Cannula 2.0 28 10/25/18 19:03 Nasal Cannula 2.0 28 10/25/18 19:02 58 10/25/18 19:02 67 20 97 Nasal Cannula 2.0 28 10/25/18 16:00 72 10/25/18 16:00 97.0 69 20 117/49 (71) 99 Intake and Output 10/25/18 10/26/18 19:00 07:00 Intake Total 390 ml 110 ml Output Total 2000 ml Balance -1610 ml 110 ml Intake Oral 390 ml IV Total 110 ml Hemodialysis UF 2000 ml Laboratory Tests 10/26/18 14:35: C-Reactive Protein, Quantitative 1.9H Height (Feet): 5 Height (Inches): 1.00 Weight (Pounds): 137 Objective General Appearance: WD/WN, alert Neck: supple Cardiovascular: regular rhythm Respiratory/Chest: decreased breath sounds, crackles/rales Abdomen: normal bowel sounds, non tender, soft, no organomegaly Edema: no edema noted Arm (L), no edema noted Arm (R), no edema noted Leg (L), no edema noted Leg (R), no edema noted Pedal (L), no edema noted Pedal (R), no edema noted 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
[2018-10-26 16:00] VITALS: BP 115/50
--- NOTE | 2018-10-26 19:04 | NUR ---
HAND-OFF: Report given to FERNANDA Qiu. Plan of care endorsed.
--- NOTE | 2018-10-26 19:15 | NUR ---
NURSE NOTES: Received patient from FERNANDA Chan. Patient on bed awake, no signs of distress noted. Will have HD tomorrow [facility] aware. Call light within reach. Bed brakes engaged. IV site on right EJ patent and intact.
[2018-10-26 20:00] VITALS: BP 113/50
[2018-10-26] MEDS: TraZODone 50mg tab ORAL SCH (21:16)
[2018-10-26] MEDS: Cefepime HCl 1 GM in D5W 55 ML IVPB SCH (21:16)
--- NOTE | 2018-10-26 21:44 | NUR ---
NURSE NOTES: IV site on his Right EJ has been discontinued d/t leaking. Will reattempt reinsertion. Patient aware and cooperative.
--- NOTE | 2018-10-26 22:00 | NUR ---
NURSE NOTES: New IV site inserted on Right hand 24G running Cefepime 1gm as ordered. Patent and intact. No complaints of pain.
[2018-10-27] VITALS: BP 128/65
[2018-10-27 04:00] VITALS: BP 131/51
--- NOTE | 2018-10-27 05:13 | NUR ---
NURSE NOTES: Patient requesting stronger than stool softener. Will endorse in AM.
--- NOTE | 2018-10-27 05:15 | Progress Note ---
DATE: 10/26/2018 CARDIOLOGY PROGRESS NOTE SUBJECTIVE: The patient remains short of breath. ____ hemodialysis with ultrafiltration. OBJECTIVE: VITAL SIGNS: Blood pressure 134/58, pulse 86, respiratory rate 18, and monitor atrial fibrillation with oxygen saturations on 2 L 97%. NECK: No Kussmaul sign. LUNGS: Diminished breath sounds. Scattered rales. HEART: Irregularly irregular rhythm. Normal S1 and S2. A 1/6 systolic apical murmur. ABDOMEN: Soft. EXTREMITIES: No edema. IMPRESSION: 1. Dyspnea. 2. Pericardial effusion. 3. End-stage renal disease. 4. Atrial fibrillation, rate controlled. 5. Acute on chronic systolic and diastolic congestive heart failure. 6. Chronic obstructive pulmonary disease. PLAN: 1. Discussed with nephrology sequential hemodialysis with ultrafiltration session. 2. Antihypertensive and anti-failure regimen to be titrated cautiously. 3. No indication for pericardiocentesis at this time. Luis Jade M.D. DR: HARRIETT JOB#: [id number] CC:
--- NOTE | 2018-10-27 07:20 | NUR ---
HAND-OFF: Report given to FERNANDA García. Endorsed plan of care.
--- NOTE | 2018-10-27 07:46 | NUR ---
NURSE NOTES: Received report from Viviana Qiu. Pt is sitting up in bed receiving breathing treatment. No distress noted. Bed is in lowest position, side rails up X2 and call light is within reach. Will continue to monitor.
[2018-10-27 08:00] VITALS: BP 149/63
[2018-10-27 08:00] LABS: BASOPHILS % (AUTO) 0.5 % (0.0-2.0); EOSINOPHILS % (AUTO) 2.6 % (0.0-3.0); HEMATOCRIT 33.2 % (42.0-52.0); HEMOGLOBIN 10.8 G/DL (14.2-18.0); LYMPHOCYTES % (AUTO) 16.8 % (20.0-45.0); MEAN CORPUSCULAR VOLUME 100 FL (80-99); MONOCYTES % (AUTO) 8.4 % (1.0-10.0); NEUTROPHILS % (AUTO) 71.7 % (45.0-75.0); PLATELET COUNT 133 K/UL (150-450); RED BLOOD COUNT 3.31 M/UL (4.70-6.10); RED CELL DISTRIBUTION WIDTH 15.8 % (11.6-14.8); WHITE BLOOD COUNT 6.5 K/UL (4.8-10.8)
[2018-10-27 08:32] LABS: ALANINE AMINOTRANSFERASE 18 U/L (12-78); ALBUMIN 2.3 G/DL (3.4-5.0); ALBUMIN/GLOBULIN RATIO 0.6 (1.0-2.7); ALKALINE PHOSPHATASE 112 U/L (46-116); ANION GAP 7 mmol/L (5-15); ASPARTATE AMINO TRANSFERASE 20 U/L (15-37); BILIRUBIN,TOTAL 0.4 MG/DL (0.2-1.0); BLOOD UREA NITROGEN 48 mg/dL (7-18); CALCIUM 8.2 MG/DL (8.5-10.1); CARBON DIOXIDE 27 MMOL/L (21-32); CHLORIDE 98 MMOL/L (98-107); CREATININE 4.9 MG/DL (0.55-1.30); POTASSIUM 4.7 MMOL/L (3.5-5.1); SODIUM 131 MMOL/L (136-145)
[2018-10-27 08:40] LABS: PHOSPHORUS 3.9 MG/DL (2.5-4.9)
[2018-10-27] MEDS: Eliquis 2.5mg tablet ORAL SCH ×2 (09:05→17:49)
[2018-10-27] MEDS: Docusate 100mg cap ORAL SCH ×3 (09:05→17:50)
[2018-10-27] MEDS: Imdur 30mg tab ORAL SCH (09:05)
[2018-10-27] MEDS: Carvedilol 25mg Tab ORAL SCH ×2 (09:06→21:20)
[2018-10-27] MEDS: Allopurinol 100mg Tab ORAL SCH (09:06)
--- NOTE | 2018-10-27 09:42 | General Progress Note ---
Assessment/Plan Problem List: (1) Pulmonary hypertension ICD Codes: I27.20 - Pulmonary hypertension, unspecified SNOMED: 06991657 (2) Hypoxemia ICD Codes: R09.02 - Hypoxemia SNOMED: 443306000 (3) Hypertensive kidney disease ICD Codes: I12.9 - Hypertensive chronic kidney disease with stage 1 through stage 4 chronic kidney disease, or unspecified chronic kidney disease SNOMED: 56459304 (4) COPD (chronic obstructive pulmonary disease) with emphysema ICD Codes: J43.9 - Emphysema, unspecified SNOMED: 55541571 (5) Shortness of breath ICD Codes: R06.02 - Shortness of breath SNOMED: 939640442 (6) COPD (chronic obstructive pulmonary disease) with chronic bronchitis ICD Codes: J44.9 - Chronic obstructive pulmonary disease, unspecified SNOMED: 262811317 (7) Acute respiratory failure ICD Codes: J96.00 - Acute respiratory failure SNOMED: 91372079 (8) Hepatic encephalopathy ICD Codes: K72.90 - Hepatic encephalopathy SNOMED: 57741004 (9) Fluid overload ICD Codes: E87.70 - Hypervolemia SNOMED: 75545142 (10) Hypertension ICD Codes: I10 - Hypertension SNOMED: 20906870 (11) Non-compliance with treatment ICD Codes: Z91.19 - Noncompliance with treatment SNOMED: 5091794 (12) Atrial fibrillation with rapid ventricular response ICD Codes: I48.91 - Atrial fibrillation with rapid ventricular response SNOMED: 328177703891087 Status: stable Assessment/Plan cont current rx o2 resp care epo/iron monitor for bleeding follow up repeat cbc monitor cxr HD with UF sputum culture check duplex consider v/q scan or CTPA to r/o PE Subjective ROS Limited/Unobtainable: No Constitutional: Reports: malaise, weakness HEENT: Reports: no symptoms Cardiovascular: Reports: no symptoms Respiratory: Reports: cough, shortness of breath, SOB at rest, sputum Gastrointestinal/Abdominal: Reports: no symptoms Genitourinary: Reports: no symptoms Neurologic/Psychiatric: Reports: no symptoms Endocrine: Reports: no symptoms Hematologic/Lymphatic: Reports: anemia Allergies: Coded Allergies: BANANA (Verified Allergy, Severe, 09/05/18) GIL (Verified Allergy, Severe, 09/05/18) CARROT (Verified Allergy, Severe, 09/05/18) Dairy (Verified Allergy, Severe, 09/05/18) GRAPE (Verified Allergy, Severe, 09/05/18) Pork (Verified Allergy, Severe, 09/05/18) Potato (Verified Allergy, Severe, 08/12/18) All Systems: reviewed and negative except above Subjective still sob. c/o cough with "dark" phlegm. no fevers. Objective Last 24 Hour Vital Signs Date Time Temp Pulse Resp B/P (MAP) Pulse Ox O2 Delivery O2 Flow Rate FiO2 10/27/18 09:06 67 149/63 10/27/18 09:05 67 149/63 10/27/18 09:05 149/63 10/27/18 04:00 98.0 68 18 131/51 (77) 96 10/27/18 03:38 71 10/27/18 01:53 85 22 Nasal Cannula 2.0 10/27/18 00:00 97.7 75 18 128/65 (86) 99 10/26/18 23:29 85 10/26/18 23:05 69 10/26/18 21:15 64 113/50 10/26/18 21:00 Nasal Cannula 2.0 10/26/18 20:30 78 18 100 Nasal Cannula 2.0 10/26/18 20:17 96 Nasal Cannula 2.0 10/26/18 20:17 Nasal Cannula 2.0 10/26/18 20:17 73 18 96 Nasal Cannula 2.0 10/26/18 20:00 97.9 64 18 113/50 (71) 97 10/26/18 16:00 65 10/26/18 16:00 97.3 86 16 115/50 (71) 99 10/26/18 15:51 78 20 100 Nasal Cannula 2.0 28 10/26/18 15:44 69 18 98 Nasal Cannula 2.0 28 10/26/18 12:00 77 10/26/18 12:00 97.5 79 16 116/56 (76) 100 10/26/18 10:50 86 20 99 Nasal Cannula 2.0 10/26/18 10:42 83 20 97 Nasal Cannula 2.0 28 Intake and Output 10/26/18 10/27/18 19:00 07:00 Intake Total 360 ml Output Total 500 ml 200 ml Balance -140 ml -200 ml Intake Oral 360 ml Output Urine Total 500 ml 200 ml # Voids 5 Laboratory Tests 10/26/18 14:35: C-Reactive Protein, Quantitative 1.9H 10/27/18 07:30: White Blood Count 6.5, Red Blood Count 3.31L, Hemoglobin 10.8L, Hematocrit 33.2L , Mean Corpuscular Volume 100H, Mean Corpuscular Hemoglobin 32.7H, Mean Corpuscular Hemoglobin Concent 32.6, Red Cell Distribution Width 15.8H, Platelet Count 133L, Mean Platelet Volume 6.3L, Neutrophils (%) (Auto) 71.7, Lymphocytes (%) (Auto) 16.8L, Monocytes (%) (Auto) 8.4, Eosinophils (%) (Auto) 2.6, Basophils (%) (Auto) 0.5, Sodium Level 131L, Potassium Level 4.7, Chloride Level 98, Carbon Dioxide Level 27, Anion Gap 7, Blood Urea Nitrogen 48H, Creatinine 4.9H, Estimat Glomerular Filtration Rate , Glucose Level 102, Calcium Level 8.2L, Phosphorus Level 3.9, Magnesium Level 2.1, Total Bilirubin 0.4, Aspartate Amino Transf (AST/SGOT) 20, Alanine Aminotransferase (ALT/SGPT) 18, Alkaline Phosphatase 112, Pro-B-Type Natriuretic Peptide 60906V, Total Protein 6.1L, Albumin 2.3L, Globulin 3.8, Albumin/Globulin Ratio 0.6L, Random Vancomycin Level 23.2 Height (Feet): 5 Height (Inches): 1.00 Weight (Pounds): 139 Objective General Appearance: WD/WN, alert Neck: supple Cardiovascular: regular rhythm Respiratory/Chest: decreased breath sounds, crackles/rales Abdomen: normal bowel sounds, non tender, soft, no organomegaly Edema: no edema noted Arm (L), no edema noted Arm (R), no edema noted Leg (L), no edema noted Leg (R), no edema noted Pedal (L), no edema noted Pedal (R), no edema noted 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
--- NOTE | 2018-10-27 10:50 | Nephrology Progress Note ---
Assessment/Plan Problem List: (1) ESRD (end stage renal disease) on dialysis (2) Fluid overload (3) COPD (chronic obstructive pulmonary disease) (4) Pericardial effusion (5) Pulmonary hypertension (6) Hypoxemia (7) Anemia in CKD (chronic kidney disease) Assessment Presents with respiratory distress and hypoxia Possiblities: CHF-Pul HTN- COPD (1) ESRD (end stage renal disease) on dialysis tue vibha sat (2) h/o Atrial fibrillation with rapid ventricular response (3) h/o Myocardial injury (4) Pericardial effusion (5) Fluid overload other Hypertension h/o Respiratory Arrest and Pneumonia and Hemoptysis ESRD Maulti infarct brain disease Pulm HTN Now DNR Plan HD 10/23 next 10/25- next 10/27 and DC after HD in am BP check and BP med adjustment Optimize cardiac and pulmonary status transfused 1 unit parameters for bp meds CXR ? worsening edema Subjective ROS Limited/Unobtainable: No Objective Objective Last 24 Hour Vital Signs Date Time Temp Pulse Resp B/P (MAP) Pulse Ox O2 Delivery O2 Flow Rate FiO2 10/27/18 09:06 67 149/63 10/27/18 09:05 67 149/63 10/27/18 09:05 149/63 10/27/18 08:00 68 10/27/18 08:00 Nasal Cannula 2.0 10/27/18 08:00 97.0 67 20 149/63 (91) 96 10/27/18 04:00 98.0 68 18 131/51 (77) 96 10/27/18 03:38 71 10/27/18 01:53 85 22 Nasal Cannula 2.0 28 10/27/18 00:00 97.7 75 18 128/65 (86) 99 10/26/18 23:29 85 10/26/18 23:05 69 10/26/18 21:15 64 113/50 10/26/18 21:00 Nasal Cannula 2.0 10/26/18 20:30 78 18 100 Nasal Cannula 2.0 28 10/26/18 20:17 96 Nasal Cannula 2.0 28 10/26/18 20:17 Nasal Cannula 2.0 28 10/26/18 20:17 73 18 96 Nasal Cannula 2.0 28 10/26/18 20:00 97.9 64 18 113/50 (71) 97 10/26/18 16:00 65 10/26/18 16:00 97.3 86 16 115/50 (71) 99 10/26/18 15:51 78 20 100 Nasal Cannula 2.0 28 10/26/18 15:44 69 18 98 Nasal Cannula 2.0 28 10/26/18 12:00 77 10/26/18 12:00 97.5 79 16 116/56 (76) 100 10/26/18 10:50 86 20 99 Nasal Cannula 2.0 28 Intake and Output 10/26/18 10/27/18 19:00 07:00 Intake Total 360 ml Output Total 500 ml 200 ml Balance -140 ml -200 ml Intake Oral 360 ml Output Urine Total 500 ml 200 ml # Voids 5 Current Medications Medications (Trade) Dose Ordered Sig/Kris Route PRN Reason Start Time Stop Time Status Last Admin Dose Admin Allopurinol (Zyloprim) 200 mg DAILY ORAL 10/22/18 09:00 11/21/18 08:59 10/27/18 09:06 Apixaban (Eliquis) 2.5 mg BID ORAL 10/22/18 09:00 11/21/18 08:59 10/27/18 09:05 Carvedilol (Coreg) 25 mg EVERY 12 HOURS ORAL 10/25/18 09:00 11/24/18 08:59 10/27/18 09:06 Cefepime HCl 1 gm/ Dextrose 55 ml @ 110 mls/hr Q24H IVPB 10/21/18 22:00 10/28/18 21:59 10/26/18 21:16 Docusate Sodium (Colace) 100 mg TID ORAL 10/22/18 18:00 11/21/18 08:59 10/27/18 09:05 Epoetin Issa (Procrit (for ESRD on dialysis)) 10,000 units SUN-SUN-SUN SUBQ 10/28/18 21:00 11/22/18 20:59 Finasteride (Proscar) 5 mg DAILY ORAL 10/22/18 09:00 11/21/18 08:59 10/27/18 09:06 Isosorbide Mononitrate (Imdur) 30 mg DAILY ORAL 10/22/18 09:00 11/21/18 08:59 10/27/18 09:05 Nifedipine (Procardia XL) 30 mg DAILY ORAL 10/25/18 09:00 11/21/18 08:59 10/27/18 09:05 Pantoprazole (Protonix) 40 mg DAILY ORAL 10/23/18 09:00 11/22/18 08:59 10/27/18 09:05 Sevelamer Carbonate (Renvela) 800 mg THREE TIMES A DAY ORAL 10/22/18 18:00 11/21/18 17:59 10/27/18 09:06 Trazodone HCl (Desyrel) 50 mg BEDTIME ORAL 10/21/18 23:15 11/20/18 23:14 10/26/18 21:16 Vancomycin HCl (Vanco rx to dose) 1 ea DAILY PRN MISC Per rx protocol 10/21/18 22:00 11/20/18 21:59 Laboratory Tests 10/26/18 14:35: C-Reactive Protein, Quantitative 1.9H 10/27/18 07:30: White Blood Count 6.5, Red Blood Count 3.31L, Hemoglobin 10.8L, Hematocrit 33.2L , Mean Corpuscular Volume 100H, Mean Corpuscular Hemoglobin 32.7H, Mean Corpuscular Hemoglobin Concent 32.6, Red Cell Distribution Width 15.8H, Platelet Count 133L, Mean Platelet Volume 6.3L, Neutrophils (%) (Auto) 71.7, Lymphocytes (%) (Auto) 16.8L, Monocytes (%) (Auto) 8.4, Eosinophils (%) (Auto) 2.6, Basophils (%) (Auto) 0.5, Sodium Level 131L, Potassium Level 4.7, Chloride Level 98, Carbon Dioxide Level 27, Anion Gap 7, Blood Urea Nitrogen 48H, Creatinine 4.9H, Estimat Glomerular Filtration Rate , Glucose Level 102, Calcium Level 8.2L, Phosphorus Level 3.9, Magnesium Level 2.1, Total Bilirubin 0.4, Aspartate Amino Transf (AST/SGOT) 20, Alanine Aminotransferase (ALT/SGPT) 18, Alkaline Phosphatase 112, Pro-B-Type Natriuretic Peptide 56419I, Total Protein 6.1L, Albumin 2.3L, Globulin 3.8, Albumin/Globulin Ratio 0.6L, Random Vancomycin Level 23.2 Height (Feet): 5 Height (Inches): 1.00 Weight (Pounds): 139 General Appearance: no apparent distress Cardiovascular: normal rate Respiratory/Chest: decreased breath sounds Abdomen: soft Objective no other changes Ady Gómez MD Oct 27, 2018 10:50
[2018-10-27 11:53] VITALS: BP 131/58
--- NOTE | 2018-10-27 12:52 | NUR ---
NURSE NOTES: HD ordered for tomorrow. Called [facility] and set up appointment with Jose, the answering service. Per Jose, the nurse will call and confirm HD for tomorrow
--- NOTE | 2018-10-27 14:25 | NUR ---
TRANSFER TO FLOOR: Patient transferred to 4E , per MD orders. Report given to Deanne Addison RN. Belongings remain with patient. Pt in stable condition. Plan of care endorsed. Heart Monitor removed and returned.
--- NOTE | 2018-10-27 14:26 | NUR ---
NURSE NOTES: Received patient from Raquel from Tele. Patient is alert and oriented x4. Not in acute respiratory/cardiac distress @ this time.IV on right hand intact and flushable. No s/s of infiltration. AV shunt on left upper arm with bruit and thrill. Denies any pain or discomfort but patient noted with on and off cough. Belongings were checked by Two RN's. upper and lower dentures, cabrera colored flip phone, sweater and vest added on belonging list. Re-orientation given to the patient about the unit,room number,call light use, meal time,and etc. Skin intact, Will continue plan of care.
[2018-10-27 16:00] VITALS: BP 113/50
[2018-10-27] MEDS: Lactulose 20gm/30ml UDC ORAL PRN (17:51)
[2018-10-27] MEDS ORDERED: Docusate 100mg cap ORAL SCH (18:00)
[2018-10-27] MEDS ORDERED: Eliquis 2.5mg tablet ORAL SCH (18:00)
--- NOTE | 2018-10-27 18:00 | NUR ---
NURSE NOTES: Patient stated that he is constipated and docusate does not work for him. RN spoke with Dr. Perez and received order to give Miralax 17gm daily @ bedtime and lactulose 30gm TID PRN. Patient wanted to try lactulose. Given lactulose 30gm. Will continue to monitor.
--- NOTE | 2018-10-27 19:32 | NUR ---
HAND-OFF: Report given to Bautista.
--- NOTE | 2018-10-27 19:40 | NUR ---
NURSE NOTES: Patient received sitting on the bed, on o2 via NC, no shortness of breath at this time. Bedpan removed from patient, no bowel movement yet. IV is intact and patent on right hand. Call light within reach. Will continue to monitor.
[2018-10-27 20:30] VITALS: BP 143/59
[2018-10-27] MEDS ORDERED: TraZODone 50mg tab ORAL SCH (21:00)
[2018-10-27] MEDS: Miralax 17gm pkt ORAL SCH ×2 (21:00→22:44)
[2018-10-27] MEDS ORDERED: Carvedilol 25mg Tab ORAL SCH (21:00)
[2018-10-27] MEDS: TraZODone 50mg tab ORAL SCH (21:20)
[2018-10-27] MEDS: Cefepime HCl 1 GM in D5W 55 ML IVPB SCH (21:21)
[2018-10-27] MEDS ORDERED: Cefepime HCl 1 GM in D5W 55 ML IVPB SCH (22:00)
[2018-10-28 00:01] VITALS: BP 119/49
[2018-10-28 04:00] VITALS: BP 133/53
[2018-10-28] MEDS: Lactulose 20gm/30ml UDC ORAL PRN (06:17)
--- NOTE | 2018-10-28 07:25 | NUR ---
HAND-OFF: Report given to Luis M MICHAEL.
--- NOTE | 2018-10-28 07:45 | NUR ---
NURSE NOTES: pt in bed with no sob nor in any form of distress noted. breathing regular and unlabored. denies any pain at this time. will continue to monitor
[2018-10-28 08:00] VITALS: BP 138/62
[2018-10-28] MEDS: Docusate 100mg cap ORAL SCH (09:00)
[2018-10-28] MEDS ORDERED: Imdur 30mg tab ORAL SCH (09:00)
[2018-10-28] MEDS ORDERED: Allopurinol 100mg Tab ORAL SCH (09:00)
--- NOTE | 2018-10-28 09:13 | Diagnostic Imaging Report ---
Indication: Cough Technique: One view of the chest Comparison: 10/24/2018 Findings: The heart is enlarged. There is bilateral interstitial and airspace edema again demonstrated, unchanged. Impression: Unchanged, over one day, findings as above.
--- NOTE | 2018-10-28 09:13 | General Progress Note ---
Assessment/Plan Problem List: (1) Pulmonary hypertension ICD Codes: I27.20 - Pulmonary hypertension, unspecified SNOMED: 88912236 (2) Hypoxemia ICD Codes: R09.02 - Hypoxemia SNOMED: 230609120 (3) Hypertensive kidney disease ICD Codes: I12.9 - Hypertensive chronic kidney disease with stage 1 through stage 4 chronic kidney disease, or unspecified chronic kidney disease SNOMED: 97892345 (4) COPD (chronic obstructive pulmonary disease) with emphysema ICD Codes: J43.9 - Emphysema, unspecified SNOMED: 03048096 (5) Shortness of breath ICD Codes: R06.02 - Shortness of breath SNOMED: 600810692 (6) COPD (chronic obstructive pulmonary disease) with chronic bronchitis ICD Codes: J44.9 - Chronic obstructive pulmonary disease, unspecified SNOMED: 105869730 (7) Acute respiratory failure ICD Codes: J96.00 - Acute respiratory failure SNOMED: 53891853 (8) Hepatic encephalopathy ICD Codes: K72.90 - Hepatic encephalopathy SNOMED: 04341417 (9) Fluid overload ICD Codes: E87.70 - Hypervolemia SNOMED: 97760375 (10) Hypertension ICD Codes: I10 - Hypertension SNOMED: 89420991 (11) Non-compliance with treatment ICD Codes: Z91.19 - Noncompliance with treatment SNOMED: 8746761 (12) Atrial fibrillation with rapid ventricular response ICD Codes: I48.91 - Atrial fibrillation with rapid ventricular response SNOMED: 795365368373503 Status: stable, progressing Assessment/Plan cont current rx o2 resp care epo/iron monitor for bleeding follow up repeat cbc monitor cxr HD with UF dc planning to snf Subjective ROS Limited/Unobtainable: No Constitutional: Reports: malaise, weakness HEENT: Reports: no symptoms Cardiovascular: Reports: no symptoms Respiratory: Reports: shortness of breath, SOB with excertion Gastrointestinal/Abdominal: Reports: no symptoms Genitourinary: Reports: no symptoms Neurologic/Psychiatric: Reports: no symptoms Endocrine: Reports: no symptoms Hematologic/Lymphatic: Reports: anemia Allergies: Coded Allergies: BANANA (Verified Allergy, Severe, 09/05/18) GIL (Verified Allergy, Severe, 09/05/18) CARROT (Verified Allergy, Severe, 09/05/18) Dairy (Verified Allergy, Severe, 09/05/18) GRAPE (Verified Allergy, Severe, 09/05/18) Pork (Verified Allergy, Severe, 09/05/18) Potato (Verified Allergy, Severe, 08/12/18) All Systems: reviewed and negative except above Subjective still sob. c/o cough with "dark" phlegm. no fevers. states he can only take few steps without significant MURRAY Objective Last 24 Hour Vital Signs Date Time Temp Pulse Resp B/P (MAP) Pulse Ox O2 Delivery O2 Flow Rate FiO2 10/28/18 04:00 96.0 68 17 133/53 (79) 99 10/28/18 00:01 96.9 69 18 119/49 (72) 98 10/27/18 21:20 77 143/59 10/27/18 21:00 Nasal Cannula 2.0 10/27/18 20:30 97.0 77 18 143/59 (87) 99 10/27/18 16:00 97.0 67 18 113/50 (71) 95 10/27/18 14:05 Room Air 10/27/18 14:02 Room Air 10/27/18 12:00 73 10/27/18 11:53 97.3 67 20 131/58 (82) 95 Intake and Output 10/27/18 10/28/18 18:59 06:59 Intake Total 440 ml 255 ml Output Total 2000 ml Balance -1560 ml 255 ml Intake Oral 440 ml 200 ml IV Total 55 ml Hemodialysis UF 2000 ml # Voids 2 Height (Feet): 5 Height (Inches): 1.00 Weight (Pounds): 139 Objective General Appearance: WD/WN, alert Neck: supple Cardiovascular: regular rhythm Respiratory/Chest: decreased breath sounds, crackles/rales Abdomen: normal bowel sounds, non tender, soft, no organomegaly Edema: no edema noted Arm (L), no edema noted Arm (R), no edema noted Leg (L), no edema noted Leg (R), no edema noted Pedal (L), no edema noted Pedal (R), no edema noted 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
[2018-10-28] MEDS ORDERED: Bisacodyl EC 5mg tab ORAL SCH (10:00)
[2018-10-28] MEDS ORDERED: Docusate 250mg cap ORAL SCH (10:00)
[2018-10-28] MEDS: Eliquis 2.5mg tablet ORAL SCH ×2 (10:10→16:57)
[2018-10-28] MEDS: Carvedilol 25mg Tab ORAL SCH ×2 (10:10→21:18)
[2018-10-28] MEDS: Imdur 30mg tab ORAL SCH (10:11)
[2018-10-28] MEDS: Allopurinol 100mg Tab ORAL SCH ×2 (10:11→16:57)
--- NOTE | 2018-10-28 11:00 | NUR ---
NURSE NOTES: NURSE NOTES: pt had BM with no discomfort. pt stated he feels more relieved. at bedside. will continue to monitor
--- NOTE | 2018-10-28 11:40 | Nephrology Progress Note ---
Assessment/Plan Problem List: (1) ESRD (end stage renal disease) on dialysis (2) Fluid overload (3) COPD (chronic obstructive pulmonary disease) (4) Pericardial effusion (5) Pulmonary hypertension (6) Hypoxemia (7) Anemia in CKD (chronic kidney disease) Assessment Presents with respiratory distress and hypoxia Possiblities: CHF-Pul HTN- COPD (1) ESRD (end stage renal disease) on dialysis tue vibha sat (2) h/o Atrial fibrillation with rapid ventricular response (3) h/o Myocardial injury (4) Pericardial effusion (5) Fluid overload other Hypertension h/o Respiratory Arrest and Pneumonia and Hemoptysis ESRD Maulti infarct brain disease Pulm HTN Now DNR Plan HD 10/23 next 10/25- next 10/27 and DC after HD today per PMD BP check and BP med adjustment Optimize cardiac and pulmonary status transfused 1 unit parameters for bp meds CXR ? worsening edema Subjective ROS Limited/Unobtainable: No Constitutional: Reports: malaise Objective Objective Last 24 Hour Vital Signs Date Time Temp Pulse Resp B/P (MAP) Pulse Ox O2 Delivery O2 Flow Rate FiO2 10/28/18 10:11 138/62 10/28/18 10:10 75 138/62 10/28/18 10:10 75 138/62 10/28/18 09:00 Nasal Cannula 2.0 10/28/18 08:00 97.2 75 18 138/62 (87) 98 10/28/18 04:00 96.0 68 17 133/53 (79) 99 10/28/18 00:01 96.9 69 18 119/49 (72) 98 10/27/18 21:20 77 143/59 10/27/18 21:00 Nasal Cannula 2.0 10/27/18 20:30 97.0 77 18 143/59 (87) 99 10/27/18 16:00 97.0 67 18 113/50 (71) 95 10/27/18 14:05 Room Air 10/27/18 14:02 Room Air 10/27/18 12:00 73 10/27/18 11:53 97.3 67 20 131/58 (82) 95 Intake and Output 10/27/18 10/28/18 18:59 06:59 Intake Total 440 ml 255 ml Output Total 2000 ml Balance -1560 ml 255 ml Intake Oral 440 ml 200 ml IV Total 55 ml Hemodialysis UF 2000 ml # Voids 2 Current Medications Medications (Trade) Dose Ordered Sig/Kris Route PRN Reason Start Time Stop Time Status Last Admin Dose Admin Allopurinol (Zyloprim) 200 mg DAILY ORAL 10/28/18 09:00 11/21/18 08:59 10/28/18 10:11 Apixaban (Eliquis) 2.5 mg BID ORAL 10/27/18 18:00 11/21/18 08:59 10/28/18 10:10 Bisacodyl (Dulcolax) 10 mg DAILY ORAL 10/29/18 09:00 11/28/18 08:59 Carvedilol (Coreg) 25 mg EVERY 12 HOURS ORAL 10/27/18 21:00 11/24/18 08:59 10/28/18 10:10 Cefepime HCl 1 gm/ Dextrose 55 ml @ 110 mls/hr Q24H IVPB 10/27/18 22:00 10/28/18 21:59 10/27/18 21:21 Docusate Sodium (Colace) 250 mg BID ORAL 10/28/18 18:00 11/27/18 17:59 Epoetin Issa (Procrit (for ESRD on dialysis)) 10,000 units SUN-SUN-SUN SUBQ 10/28/18 21:00 11/22/18 20:59 Finasteride (Proscar) 5 mg DAILY ORAL 10/28/18 09:00 11/21/18 08:59 10/28/18 10:13 Isosorbide Mononitrate (Imdur) 30 mg DAILY ORAL 10/28/18 09:00 11/21/18 08:59 10/28/18 10:11 Lactulose (Cephulac) 30 gm TIDPRN PRN ORAL Constipation 10/27/18 17:30 11/26/18 17:29 10/28/18 06:17 Nifedipine (Procardia XL) 30 mg DAILY ORAL 10/28/18 09:00 11/21/18 08:59 10/28/18 10:10 Pantoprazole (Protonix) 40 mg DAILY ORAL 10/28/18 09:00 11/22/18 08:59 10/28/18 10:10 Polyethylene Glycol (Miralax) 17 gm BEDTIME ORAL 10/27/18 21:00 11/26/18 20:59 10/27/18 22:44 Sevelamer Carbonate (Renvela) 800 mg THREE TIMES A DAY ORAL 10/27/18 18:00 11/21/18 17:59 10/28/18 10:17 Trazodone HCl (Desyrel) 50 mg BEDTIME ORAL 10/27/18 21:00 11/20/18 23:14 10/27/18 21:20 Vancomycin HCl (Vanco rx to dose) 1 ea DAILY PRN MISC Per rx protocol 10/28/18 09:00 11/20/18 21:59 Height (Feet): 5 Height (Inches): 1.00 Weight (Pounds): 139 General Appearance: no apparent distress Objective no other changes Ady Gómez MD Oct 28, 2018 11:40
[2018-10-28 12:00] VITALS: BP 130/50
[2018-10-28 16:00] VITALS: BP 134/54
[2018-10-28] MEDS: Docusate 250mg cap ORAL SCH (16:54)
--- NOTE | 2018-10-28 16:55 | NUR ---
CASE MANAGEMENT:REVIEW 10/28/18 SI: COPD. ACUTE RESP FAILURE HEPATIC ENCEPHALOPATHY. AFIB 97.0 73 17 130/50 99% ON 2L/NC IS: IV CEFEPIME Q24 PROCRIT SQ MWF ALLOPURINOL PO QD PROSCAR PO QD IMDUR PO QD PROCARDIA XL PO QD COREG PO Q12 ELIQUIS PO BID : MED/SURG STATUS 4 EAST DCP: PATIENT IS FROM HOME PLAN: HOME WITH [facility] ~ FAXED
--- NOTE | 2018-10-28 17:02 | NUR ---
DISCHARGE PLANNING INTAKE CLINICALS HAVE BEEN FAXED TO: [facility] F:[phone] P:[phone]
--- NOTE | 2018-10-28 19:17 | NUR ---
HAND-OFF: Report given to FERNANDA Byrnes.
--- NOTE | 2018-10-28 19:33 | NUR ---
NURSE NOTES: Received patient in bed, watching TV in sitting position. Hungarian speaking. On 2L O2 via N/C. No SOB, no acute distress noted. 24G on R hand intact and patent. In calm mood, stable condition. Bed in lowest position, locked, alarms on. Call light in reach.
[2018-10-28 20:00] VITALS: BP 146/64
[2018-10-28] MEDS: Miralax 17gm pkt ORAL SCH (21:00)
[2018-10-28] MEDS ORDERED: Epogen (for ESRD on dialysis) SUBQ SCH ×2 (21:00)
[2018-10-28] MEDS: TraZODone 50mg tab ORAL SCH (21:18)
[2018-10-28] MEDS: Epogen (for ESRD on dialysis) SUBQ SCH (21:19)
[2018-10-28] MEDS: Cefepime HCl 1 GM in D5W 55 ML IVPB SCH (21:31)
[2018-10-29] VITALS: BP 152/70
[2018-10-29 04:00] VITALS: BP 125/52
--- NOTE | 2018-10-29 07:37 | NUR ---
HAND-OFF: Report given to FERNANDA Arellano.
[2018-10-29 08:00] VITALS: BP 135/64
[2018-10-29] MEDS: Eliquis 2.5mg tablet ORAL SCH ×2 (08:58→17:27)
[2018-10-29] MEDS: Imdur 30mg tab ORAL SCH (08:58)
[2018-10-29] MEDS: Allopurinol 100mg Tab ORAL SCH (08:58)
[2018-10-29] MEDS: Docusate 250mg cap ORAL SCH ×2 (09:00→17:26)
[2018-10-29] MEDS: Bisacodyl EC 5mg tab ORAL SCH (09:00)
[2018-10-29] MEDS: Carvedilol 25mg Tab ORAL SCH ×2 (09:00→21:48)
--- NOTE | 2018-10-29 09:03 | General Progress Note ---
Assessment/Plan Problem List: (1) Pulmonary hypertension ICD Codes: I27.20 - Pulmonary hypertension, unspecified SNOMED: 69074470 (2) Hypoxemia ICD Codes: R09.02 - Hypoxemia SNOMED: 841248694 (3) Hypertensive kidney disease ICD Codes: I12.9 - Hypertensive chronic kidney disease with stage 1 through stage 4 chronic kidney disease, or unspecified chronic kidney disease SNOMED: 47182948 (4) COPD (chronic obstructive pulmonary disease) with emphysema ICD Codes: J43.9 - Emphysema, unspecified SNOMED: 25808171 (5) Shortness of breath ICD Codes: R06.02 - Shortness of breath SNOMED: 354145085 (6) COPD (chronic obstructive pulmonary disease) with chronic bronchitis ICD Codes: J44.9 - Chronic obstructive pulmonary disease, unspecified SNOMED: 080297428 (7) Acute respiratory failure ICD Codes: J96.00 - Acute respiratory failure SNOMED: 42091207 (8) Hepatic encephalopathy ICD Codes: K72.90 - Hepatic encephalopathy SNOMED: 89647330 (9) Fluid overload ICD Codes: E87.70 - Hypervolemia SNOMED: 60842752 (10) Hypertension ICD Codes: I10 - Hypertension SNOMED: 06687885 (11) Non-compliance with treatment ICD Codes: Z91.19 - Noncompliance with treatment SNOMED: 4673419 (12) Atrial fibrillation with rapid ventricular response ICD Codes: I48.91 - Atrial fibrillation with rapid ventricular response SNOMED: 286713989893318 Status: stable, progressing Assessment/Plan cont current rx o2 resp care epo/iron monitor for bleeding follow up repeat cbc monitor cxr follow up sputum culture ct chest HD with UF dc planning to snf Subjective ROS Limited/Unobtainable: No Constitutional: Reports: malaise, weakness HEENT: Reports: no symptoms Cardiovascular: Reports: no symptoms Respiratory: Reports: orthopnea, shortness of breath, SOB with excertion, SOB at rest Gastrointestinal/Abdominal: Reports: no symptoms Genitourinary: Reports: no symptoms Neurologic/Psychiatric: Reports: no symptoms Endocrine: Reports: no symptoms Hematologic/Lymphatic: Reports: anemia Allergies: Coded Allergies: BANANA (Verified Allergy, Severe, 09/05/18) GIL (Verified Allergy, Severe, 09/05/18) CARROT (Verified Allergy, Severe, 09/05/18) Dairy (Verified Allergy, Severe, 09/05/18) GRAPE (Verified Allergy, Severe, 09/05/18) Pork (Verified Allergy, Severe, 09/05/18) Potato (Verified Allergy, Severe, 08/12/18) All Systems: reviewed and negative except above Subjective still sob. c/o cough with "dark" phlegm. no fevers. states he can only take few steps without significant MURRAY cxr still with michaelle infiltrates/edema Objective Last 24 Hour Vital Signs Date Time Temp Pulse Resp B/P (MAP) Pulse Ox O2 Delivery O2 Flow Rate FiO2 10/29/18 08:00 97.5 67 20 135/64 (87) 100 10/29/18 04:00 98.1 73 20 125/52 (76) 100 10/29/18 00:00 98.1 62 18 152/70 (97) 100 10/28/18 21:18 77 146/64 10/28/18 21:00 Nasal Cannula 2.0 10/28/18 20:00 97.7 77 20 146/64 (91) 100 10/28/18 19:35 98 Nasal Cannula 2.0 28 10/28/18 19:35 Nasal Cannula 2.0 28 10/28/18 16:00 97.3 82 18 134/54 (80) 98 10/28/18 12:00 97.0 73 17 130/50 (76) 99 10/28/18 10:11 138/62 10/28/18 10:10 75 138/62 10/28/18 10:10 75 138/62 Intake and Output 10/28/18 10/29/18 19:00 07:00 Intake Total 480 ml 120 ml Output Total 1800 ml Balance -1320 ml 120 ml Intake Oral 480 ml 120 ml Hemodialysis UF 1800 ml # Voids 1 # Bowel Movements 1 Laboratory Tests 10/29/18 07:30: Random Vancomycin Level [Pending] Height (Feet): 5 Height (Inches): 1.00 Weight (Pounds): 130 Objective General Appearance: WD/WN, alert Neck: supple Cardiovascular: regular rhythm Respiratory/Chest: decreased breath sounds, crackles/rales Abdomen: normal bowel sounds, non tender, soft, no organomegaly Edema: no edema noted Arm (L), no edema noted Arm (R), no edema noted Leg (L), no edema noted Leg (R), no edema noted Pedal (L), no edema noted Pedal (R), no edema noted 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
[2018-10-29] MEDS ORDERED: Isovue-300 100ml vial INJ PRN (09:15)
[2018-10-29] MEDS ORDERED: Vancomycin 750mg/NS 250ml IVPB ONE (11:00)
--- NOTE | 2018-10-29 11:23 | Pulmonology Progress Note ---
Subjective Allergies: Coded Allergies: BANANA (Verified Allergy, Severe, 09/05/18) GIL (Verified Allergy, Severe, 09/05/18) CARROT (Verified Allergy, Severe, 09/05/18) Dairy (Verified Allergy, Severe, 09/05/18) GRAPE (Verified Allergy, Severe, 09/05/18) Pork (Verified Allergy, Severe, 09/05/18) Potato (Verified Allergy, Severe, 08/12/18) Objective Last 24 Hour Vital Signs Date Time Temp Pulse Resp B/P (MAP) Pulse Ox O2 Delivery O2 Flow Rate FiO2 10/29/18 09:00 Nasal Cannula 2.0 10/29/18 09:00 67 135/64 10/29/18 08:58 67 135/64 10/29/18 08:58 135/64 10/29/18 08:00 97.5 67 20 135/64 (87) 100 10/29/18 04:00 98.1 73 20 125/52 (76) 100 10/29/18 00:00 98.1 62 18 152/70 (97) 100 10/28/18 21:18 77 146/64 10/28/18 21:00 Nasal Cannula 2.0 10/28/18 20:00 97.7 77 20 146/64 (91) 100 10/28/18 19:35 98 Nasal Cannula 2.0 28 10/28/18 19:35 Nasal Cannula 2.0 28 10/28/18 16:00 97.3 82 18 134/54 (80) 98 10/28/18 12:00 97.0 73 17 130/50 (76) 99 Intake and Output 10/28/18 10/29/18 18:59 06:59 Intake Total 480 ml 120 ml Output Total 1800 ml Balance -1320 ml 120 ml Intake Oral 480 ml 120 ml Hemodialysis UF 1800 ml # Voids 1 # Bowel Movements 1 Microbiology Date/Time Source Procedure Growth Status 10/28/18 10:30 Sputum Expectorated Gram Stain Pending Resulted 10/28/18 10:30 Sputum Expectorated Sputum Culture - Preliminary Resulted Laboratory Tests 10/29/18 07:30: Random Vancomycin Level 16.6 Current Medications Medications (Trade) Dose Ordered Sig/Kris Route PRN Reason Start Time Stop Time Status Last Admin Dose Admin Allopurinol (Zyloprim) 200 mg DAILY ORAL 10/28/18 09:00 11/21/18 08:59 10/29/18 08:58 Apixaban (Eliquis) 2.5 mg BID ORAL 10/27/18 18:00 11/21/18 08:59 10/29/18 08:58 Bisacodyl (Dulcolax) 10 mg DAILY ORAL 10/29/18 09:00 11/28/18 08:59 Carvedilol (Coreg) 25 mg EVERY 12 HOURS ORAL 10/27/18 21:00 11/24/18 08:59 10/28/18 21:18 Cefepime HCl 1 gm/ Dextrose 55 ml @ 110 mls/hr Q24H IVPB 10/27/18 22:00 11/04/18 21:59 10/28/18 21:31 Docusate Sodium (Colace) 250 mg BID ORAL 10/28/18 18:00 11/27/18 17:59 Epoetin Issa (Procrit (for ESRD on dialysis)) 10,000 units SUN-SUN-SUN SUBQ 10/28/18 21:00 11/22/18 20:59 10/28/18 21:19 Finasteride (Proscar) 5 mg DAILY ORAL 10/28/18 09:00 11/21/18 08:59 10/29/18 08:58 Iopamidol (Isovue-300 100ml) 100 ml NOW PRN INJ Radiology Procedure 10/29/18 09:15 10/29/18 23:59 Isosorbide Mononitrate (Imdur) 30 mg DAILY ORAL 10/28/18 09:00 11/21/18 08:59 10/29/18 08:58 Lactulose (Cephulac) 30 gm TIDPRN PRN ORAL Constipation 10/27/18 17:30 11/26/18 17:29 10/28/18 06:17 Nifedipine (Procardia XL) 30 mg DAILY ORAL 10/28/18 09:00 11/21/18 08:59 10/29/18 08:58 Pantoprazole (Protonix) 40 mg DAILY ORAL 10/28/18 09:00 11/22/18 08:59 10/29/18 08:58 Polyethylene Glycol (Miralax) 17 gm BEDTIME ORAL 10/27/18 21:00 11/26/18 20:59 10/27/18 22:44 Sevelamer Carbonate (Renvela) 800 mg THREE TIMES A DAY ORAL 10/27/18 18:00 11/21/18 17:59 10/29/18 08:58 Trazodone HCl (Desyrel) 50 mg BEDTIME ORAL 10/27/18 21:00 11/20/18 23:14 10/28/18 21:18 Vancomycin HCl (Vanco rx to dose) 1 ea DAILY PRN MISC Per rx protocol 10/28/18 09:00 11/20/18 21:59 Vancomycin/Sodium Chloride 250 ml @ 166.667 mls/hr ONCE ONCE IVPB 10/29/18 11:00 10/29/18 12:29 10/29/18 10:52 Juan José Jin MD Oct 29, 2018 11:23
--- NOTE | 2018-10-29 11:23 | Consultation ---
Consult Note Consult Note I was asked by Dr. Gómez to see this 83-year-old male due to ongoing shortness of breath. Patient with evidence of pulmonary edema. In the emergency room, the patient had an elevated natriuretic peptide level greater than 35,000. Initial troponin was negative. He was admitted and undergoing HD by renal. Patient notes persistent congestion and difficulty breathing PAST MEDICAL HISTORY: History of COPD, CVA, and history of gout. hypertensive heart disease, end-stage renal disease, and congestive heart failure PAST SURGICAL HISTORY: HD catheter CURRENT MEDICATIONS: Reconciled and reviewed. ALLERGIES: None. FAMILY HISTORY: None. SOCIAL HISTORY: Negative for tobacco, ethanol, or drugs. REVIEW OF SYSTEMS: all 10 points reviewed and otherwise noncontributory PHYSICAL EXAMINATION: GENERAL: The patient is well developed, in no apparent distress. He is sitting upright in bed. He is alert. NECK: Supple. HEART: Regular rate and rhythm. without MRG LUNGS: reduced breath sounds at the bases. occasional rhonchi ABDOMEN: Soft, nontender, and nondistended. no distention EXTREMITIES: Without clubbing, cyanosis, or edema. nonfocal overall Labs Test 10/26/18 14:35 10/27/18 07:30 10/29/18 07:30 C-Reactive Protein, Quantitative 1.9 mg/dL (0.00-0.90) White Blood Count 6.5 K/UL (4.8-10.8) Red Blood Count 3.31 M/UL (4.70-6.10) Hemoglobin 10.8 G/DL (14.2-18.0) Hematocrit 33.2 % (42.0-52.0) Mean Corpuscular Volume 100 FL (80-99) Mean Corpuscular Hemoglobin 32.7 PG (27.0-31.0) Mean Corpuscular Hemoglobin Concent 32.6 G/DL (32.0-36.0) Red Cell Distribution Width 15.8 % (11.6-14.8) Platelet Count 133 K/UL (150-450) Mean Platelet Volume 6.3 FL (6.5-10.1) Neutrophils (%) (Auto) 71.7 % (45.0-75.0) Lymphocytes (%) (Auto) 16.8 % (20.0-45.0) Monocytes (%) (Auto) 8.4 % (1.0-10.0) Eosinophils (%) (Auto) 2.6 % (0.0-3.0) Basophils (%) (Auto) 0.5 % (0.0-2.0) Sodium Level 131 MMOL/L (136-145) Potassium Level 4.7 MMOL/L (3.5-5.1) Chloride Level 98 MMOL/L (98-107) Carbon Dioxide Level 27 MMOL/L (21-32) Anion Gap 7 mmol/L (5-15) Blood Urea Nitrogen 48 mg/dL (7-18) Creatinine 4.9 MG/DL (0.55-1.30) Estimat Glomerular Filtration Rate mL/min (>60) Glucose Level 102 MG/DL (74-106) Calcium Level 8.2 MG/DL (8.5-10.1) Phosphorus Level 3.9 MG/DL (2.5-4.9) Magnesium Level 2.1 MG/DL (1.8-2.4) Total Bilirubin 0.4 MG/DL (0.2-1.0) Aspartate Amino Transf (AST/SGOT) 20 U/L (15-37) Alanine Aminotransferase (ALT/SGPT) 18 U/L (12-78) Alkaline Phosphatase 112 U/L (46-116) Pro-B-Type Natriuretic Peptide 66599 pg/mL (0-125) Total Protein 6.1 G/DL (6.4-8.2) Albumin 2.3 G/DL (3.4-5.0) Globulin 3.8 g/dL Albumin/Globulin Ratio 0.6 (1.0-2.7) Random Vancomycin Level 23.2 ug/mL 16.6 ug/mL ASSESSMENT: CHF HHD COPD pulmonary edema mild pulmonary congestion hypertension CVA CKD fluid overload PLAN keep negative HD with UF respiratory care oxygen follow up imaging- CT chest venous US impression, plan, and exam edited and reviewed in detail care discussed with Juan José Dan MD Oct 29, 2018 11:22
[2018-10-29 12:00] VITALS: BP 119/41
--- NOTE | 2018-10-29 12:10 | Nephrology Progress Note ---
Assessment/Plan Problem List: (1) ESRD (end stage renal disease) on dialysis (2) Fluid overload (3) COPD (chronic obstructive pulmonary disease) (4) Pericardial effusion (5) Pulmonary hypertension (6) Hypoxemia (7) Anemia in CKD (chronic kidney disease) Assessment Presents with respiratory distress and hypoxia Possiblities: CHF-Pul HTN- COPD (1) ESRD (end stage renal disease) on dialysis tue vibha sat (2) h/o Atrial fibrillation with rapid ventricular response (3) h/o Myocardial injury (4) Pericardial effusion (5) Fluid overload other Hypertension h/o Respiratory Arrest and Pneumonia and Hemoptysis ESRD Maulti infarct brain disease Pulm HTN Now DNR Plan HD 10/23 next 10/25- next 10/27 and DC cancelled as patient remains SOB Pulm eval chest CT next HD 10/31 BP check and BP med adjustment Optimize cardiac and pulmonary status transfused 1 unit parameters for bp meds CXR ? worsening edema Subjective ROS Limited/Unobtainable: No Constitutional: Reports: malaise, weakness Objective Objective Last 24 Hour Vital Signs Date Time Temp Pulse Resp B/P (MAP) Pulse Ox O2 Delivery O2 Flow Rate FiO2 10/29/18 09:00 Nasal Cannula 2.0 10/29/18 09:00 67 135/64 10/29/18 08:58 67 135/64 10/29/18 08:58 135/64 10/29/18 08:00 97.5 67 20 135/64 (87) 100 10/29/18 04:00 98.1 73 20 125/52 (76) 100 10/29/18 00:00 98.1 62 18 152/70 (97) 100 10/28/18 21:18 77 146/64 10/28/18 21:00 Nasal Cannula 2.0 10/28/18 20:00 97.7 77 20 146/64 (91) 100 10/28/18 19:35 98 Nasal Cannula 2.0 28 10/28/18 19:35 Nasal Cannula 2.0 28 10/28/18 16:00 97.3 82 18 134/54 (80) 98 Intake and Output 10/28/18 10/29/18 18:59 06:59 Intake Total 480 ml 120 ml Output Total 1800 ml Balance -1320 ml 120 ml Intake Oral 480 ml 120 ml Hemodialysis UF 1800 ml # Voids 1 # Bowel Movements 1 Laboratory Tests 10/29/18 07:30: Random Vancomycin Level 16.6 Height (Feet): 5 Height (Inches): 1.00 Weight (Pounds): 130 General Appearance: no apparent distress Cardiovascular: normal rate Respiratory/Chest: decreased breath sounds Abdomen: soft Objective no other changes Ady Gómez MD Oct 29, 2018 12:10
[2018-10-29 16:00] VITALS: BP 124/54
--- NOTE | 2018-10-29 19:18 | NUR ---
HAND-OFF: Report given to Andrey COSTELLO RN.
--- NOTE | 2018-10-29 19:30 | NUR ---
NURSE NOTES: Received patient in bed in sitting position. On 2L O2 via N/C. No SOB, no acute distress, no c/o pain. Patient is Estonian speaking, A/O x 4. R hand 24G saline lock on TKO, intact and patient. L upper arm AV shunt thrill and bruit. Bed in lowest position, locked, alarms on. Call light in reach.
[2018-10-29 20:00] VITALS: BP 143/60
[2018-10-29] MEDS: TraZODone 50mg tab ORAL SCH (21:47)
[2018-10-29] MEDS: Cefepime HCl 1 GM in D5W 55 ML IVPB SCH (21:47)
[2018-10-29] MEDS: Miralax 17gm pkt ORAL SCH (21:48)
[2018-10-30] VITALS: BP 135/57
[2018-10-30 04:00] VITALS: BP 116/62
--- NOTE | 2018-10-30 07:27 | NUR ---
HAND-OFF: Report given to FERNANDA Arellano.
--- NOTE | 2018-10-30 07:36 | NUR ---
NURSE NOTES: PT RESTING IN BED. IN NO APPARENT DISTRESS AT THIS TIME. PT STATES HE OCCASIONALLY HAS DIFFICULTY BREATHING AND STAYS IN SITTING POSITION. DENIES PAIN. BED IN LOWEST POSITION WITH BEDSIDE RAILS X2 RAISED. CALL LIGHT WITHIN REACH. WILL CONTINUE TO MONITOR.
--- NOTE | 2018-10-30 07:47 | General Progress Note ---
Assessment/Plan Problem List: (1) Pulmonary hypertension ICD Codes: I27.20 - Pulmonary hypertension, unspecified SNOMED: 77664983 (2) Hypoxemia ICD Codes: R09.02 - Hypoxemia SNOMED: 270666767 (3) Hypertensive kidney disease ICD Codes: I12.9 - Hypertensive chronic kidney disease with stage 1 through stage 4 chronic kidney disease, or unspecified chronic kidney disease SNOMED: 89278027 (4) COPD (chronic obstructive pulmonary disease) with emphysema ICD Codes: J43.9 - Emphysema, unspecified SNOMED: 84625812 (5) Shortness of breath ICD Codes: R06.02 - Shortness of breath SNOMED: 247170730 (6) COPD (chronic obstructive pulmonary disease) with chronic bronchitis ICD Codes: J44.9 - Chronic obstructive pulmonary disease, unspecified SNOMED: 262875977 (7) Acute respiratory failure ICD Codes: J96.00 - Acute respiratory failure SNOMED: 45825609 (8) Hepatic encephalopathy ICD Codes: K72.90 - Hepatic encephalopathy SNOMED: 34099707 (9) Fluid overload ICD Codes: E87.70 - Hypervolemia SNOMED: 32969143 (10) Hypertension ICD Codes: I10 - Hypertension SNOMED: 61425261 (11) Non-compliance with treatment ICD Codes: Z91.19 - Noncompliance with treatment SNOMED: 7195008 (12) Atrial fibrillation with rapid ventricular response ICD Codes: I48.91 - Atrial fibrillation with rapid ventricular response SNOMED: 285845460853452 Status: stable Assessment/Plan cont current rx o2 resp care epo/iron monitor for bleeding follow up repeat cbc monitor cxr follow up sputum culture ct chest HD with UF pt/family refusing snf Subjective ROS Limited/Unobtainable: No Constitutional: Reports: malaise, weakness HEENT: Reports: no symptoms Cardiovascular: Reports: no symptoms Respiratory: Reports: shortness of breath, SOB with excertion Gastrointestinal/Abdominal: Reports: no symptoms Genitourinary: Reports: no symptoms Neurologic/Psychiatric: Reports: no symptoms Endocrine: Reports: no symptoms Hematologic/Lymphatic: Reports: anemia Allergies: Coded Allergies: BANANA (Verified Allergy, Severe, 09/05/18) GIL (Verified Allergy, Severe, 09/05/18) CARROT (Verified Allergy, Severe, 09/05/18) Dairy (Verified Allergy, Severe, 09/05/18) GRAPE (Verified Allergy, Severe, 09/05/18) Pork (Verified Allergy, Severe, 09/05/18) Potato (Verified Allergy, Severe, 08/12/18) All Systems: reviewed and negative except above Subjective stable. same sob. mostly when lying flat and with exertion Objective Last 24 Hour Vital Signs Date Time Temp Pulse Resp B/P (MAP) Pulse Ox O2 Delivery O2 Flow Rate FiO2 10/30/18 04:00 96.1 59 18 116/62 (80) 100 10/30/18 00:00 96.8 78 16 135/57 (83) 100 10/29/18 21:48 79 143/60 10/29/18 21:00 Nasal Cannula 2.0 10/29/18 20:18 Nasal Cannula 2.0 28 10/29/18 20:18 99 Nasal Cannula 2.0 28 10/29/18 20:00 97.0 79 17 143/60 (87) 99 10/29/18 16:00 97.3 68 20 124/54 (77) 100 10/29/18 12:00 97.3 69 19 119/41 (67) 100 10/29/18 09:00 Nasal Cannula 2.0 10/29/18 09:00 67 135/64 10/29/18 08:58 67 135/64 10/29/18 08:58 135/64 10/29/18 08:00 97.5 67 20 135/64 (87) 100 Intake and Output 10/29/18 10/30/18 19:00 07:00 Intake Total 730.000 ml 55 ml Output Total 600 ml Balance 730.000 ml -545 ml Intake Oral 480 ml IV Total 250.000 ml 55 ml Output Urine Total 600 ml # Voids 4 Height (Feet): 5 Height (Inches): 1.00 Weight (Pounds): 132 Objective General Appearance: WD/WN, alert Neck: supple Cardiovascular: regular rhythm Respiratory/Chest: decreased breath sounds, crackles/rales Abdomen: normal bowel sounds, non tender, soft, no organomegaly Edema: no edema noted Arm (L), no edema noted Arm (R), no edema noted Leg (L), no edema noted Leg (R), no edema noted Pedal (L), no edema noted Pedal (R), no edema noted Generalized 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
[2018-10-30 08:00] VITALS: BP 148/55
--- NOTE | 2018-10-30 08:52 | Pulmonology Progress Note ---
Assessment/Plan Assessment/Plan ASSESSMENT: CHF HHD COPD pulmonary edema mild pulmonary congestion hypertension CVA CKD fluid overload PLAN keep negative as is HD with UF respiratory care oxygen follow up imaging- CT chest pending for today venous US pending maintain same and will recommend pending results impression, plan, and exam edited and reviewed in detail care discussed with RN Subjective ROS Limited/Unobtainable: Yes Allergies: Coded Allergies: BANANA (Verified Allergy, Severe, 09/05/18) GIL (Verified Allergy, Severe, 09/05/18) CARROT (Verified Allergy, Severe, 09/05/18) Dairy (Verified Allergy, Severe, 09/05/18) GRAPE (Verified Allergy, Severe, 09/05/18) Pork (Verified Allergy, Severe, 09/05/18) Potato (Verified Allergy, Severe, 08/12/18) Subjective confused overnight events noted and reviewed Objective Last 24 Hour Vital Signs Date Time Temp Pulse Resp B/P (MAP) Pulse Ox O2 Delivery O2 Flow Rate FiO2 10/30/18 08:00 97.0 73 19 148/55 (86) 100 10/30/18 04:00 96.1 59 18 116/62 (80) 100 10/30/18 00:00 96.8 78 16 135/57 (83) 100 10/29/18 21:48 79 143/60 10/29/18 21:00 Nasal Cannula 2.0 10/29/18 20:18 Nasal Cannula 2.0 28 10/29/18 20:18 99 Nasal Cannula 2.0 28 10/29/18 20:00 97.0 79 17 143/60 (87) 99 10/29/18 16:00 97.3 68 20 124/54 (77) 100 10/29/18 12:00 97.3 69 19 119/41 (67) 100 10/29/18 09:00 Nasal Cannula 2.0 10/29/18 09:00 67 135/64 10/29/18 08:58 67 135/64 10/29/18 08:58 135/64 Intake and Output 10/29/18 10/30/18 19:00 07:00 Intake Total 730.000 ml 55 ml Output Total 600 ml Balance 730.000 ml -545 ml Intake Oral 480 ml IV Total 250.000 ml 55 ml Output Urine Total 600 ml # Voids 4 Objective WDWN NAD reduced breath sounds bilaterally coarse [id number] without RG; murmur NABS nontender no HSM no CCE nonfocal ALOC Microbiology Date/Time Source Procedure Growth Status 10/28/18 10:30 Sputum Expectorated Gram Stain - Final Resulted 10/28/18 10:30 Sputum Culture - Preliminary YEAST Usual Respiratory Kendy Resulted Current Medications Medications (Trade) Dose Ordered Sig/Kris Route PRN Reason Start Time Stop Time Status Last Admin Dose Admin Allopurinol (Zyloprim) 200 mg DAILY ORAL 10/28/18 09:00 11/21/18 08:59 10/29/18 08:58 Apixaban (Eliquis) 2.5 mg BID ORAL 10/27/18 18:00 11/21/18 08:59 10/29/18 17:27 Bisacodyl (Dulcolax) 10 mg DAILY ORAL 10/29/18 09:00 11/28/18 08:59 Carvedilol (Coreg) 25 mg EVERY 12 HOURS ORAL 10/27/18 21:00 11/24/18 08:59 10/29/18 21:48 Cefepime HCl 1 gm/ Dextrose 55 ml @ 110 mls/hr Q24H IVPB 10/27/18 22:00 11/04/18 21:59 10/29/18 21:47 Docusate Sodium (Colace) 250 mg BID ORAL 10/28/18 18:00 11/27/18 17:59 Epoetin Issa (Procrit (for ESRD on dialysis)) 10,000 units SUN-WED-SUN SUBQ 10/28/18 21:00 11/22/18 20:59 10/28/18 21:19 Finasteride (Proscar) 5 mg DAILY ORAL 10/28/18 09:00 11/21/18 08:59 10/29/18 08:58 Isosorbide Mononitrate (Imdur) 30 mg DAILY ORAL 10/28/18 09:00 11/21/18 08:59 10/29/18 08:58 Lactulose (Cephulac) 30 gm TIDPRN PRN ORAL Constipation 10/27/18 17:30 11/26/18 17:29 10/28/18 06:17 Nifedipine (Procardia XL) 30 mg DAILY ORAL 10/28/18 09:00 11/21/18 08:59 10/29/18 08:58 Pantoprazole (Protonix) 40 mg DAILY ORAL 10/28/18 09:00 11/22/18 08:59 10/29/18 08:58 Polyethylene Glycol (Miralax) 17 gm BEDTIME ORAL 10/27/18 21:00 11/26/18 20:59 10/29/18 21:48 Sevelamer Carbonate (Renvela) 800 mg THREE TIMES A DAY ORAL 10/27/18 18:00 11/21/18 17:59 10/29/18 17:27 Trazodone HCl (Desyrel) 50 mg BEDTIME ORAL 10/27/18 21:00 11/20/18 23:14 10/29/18 21:47 Vancomycin HCl (Vanco rx to dose) 1 ea DAILY PRN MISC Per rx protocol 10/28/18 09:00 11/20/18 21:59 Juan José Jin MD Oct 30, 2018 08:52
[2018-10-30] MEDS: Carvedilol 25mg Tab ORAL SCH ×2 (09:00→20:24)
[2018-10-30] MEDS: Imdur 30mg tab ORAL SCH (09:06)
[2018-10-30] MEDS: Eliquis 2.5mg tablet ORAL SCH ×2 (09:06→17:26)
[2018-10-30] MEDS: Bisacodyl EC 5mg tab ORAL SCH (09:06)
[2018-10-30] MEDS: Docusate 250mg cap ORAL SCH ×2 (09:06→17:26)
[2018-10-30] MEDS: Allopurinol 100mg Tab ORAL SCH (09:07)
[2018-10-30 09:58] LABS: HEMATOCRIT 32.4 % (42.0-52.0); HEMOGLOBIN 10.3 G/DL (14.2-18.0); MEAN CORPUSCULAR VOLUME 103 FL (80-99); PLATELET COUNT 97 K/UL (150-450); RED BLOOD COUNT 3.14 M/UL (4.70-6.10); RED CELL DISTRIBUTION WIDTH 16.7 % (11.6-14.8); WHITE BLOOD COUNT 6.2 K/UL (4.8-10.8)
[2018-10-30 10:20] LABS: ALANINE AMINOTRANSFERASE 8 U/L (12-78); ALBUMIN 2.1 G/DL (3.4-5.0); ALBUMIN/GLOBULIN RATIO 0.6 (1.0-2.7); ALKALINE PHOSPHATASE 105 U/L (46-116); ANION GAP 7 mmol/L (5-15); ASPARTATE AMINO TRANSFERASE 17 U/L (15-37); BILIRUBIN,TOTAL 0.4 MG/DL (0.2-1.0); BLOOD UREA NITROGEN 34 mg/dL (7-18); CALCIUM 8.1 MG/DL (8.5-10.1); CARBON DIOXIDE 30 MMOL/L (21-32); CHLORIDE 97 MMOL/L (98-107); CREATININE 4.9 MG/DL (0.55-1.30); PHOSPHORUS 3.2 MG/DL (2.5-4.9); SODIUM 134 MMOL/L (136-145)
--- NOTE | 2018-10-30 10:35 | NUR ---
CT CHEST W/CONTRAST COMPLETED.
--- NOTE | 2018-10-30 11:33 | NUR ---
RD ASSESSMENT & RECOMMENDATIONS SEE CARE ACTIVITY FOR COMPLETE ASSESSMENT DAILY ESTIMATED NEEDS: Needs based on ESRD on HD, 60.5kg 30-35 kcals/kg 6616-4538 total kcals 1.2-1.8 g protein/kg 73-91 g total protein Fluid per MD, on HD NUTRITION DIAGNOSIS: 1) Increased kcal/pro needs R/T renal dysfunction as evidenced by ESRD dx, on HD. 2) Chewing difficulty R/T poor dentition as evidenced by pt w/ dentures, evaluated by GAS LOAD DISPATCHER w/ diet texture downgrade to ground w/ NTL. CURRENT DIET: Renal MS ground, NTL PO DIET RECOMMENDATIONS: RENAL/ texture per GAS LOAD DISPATCHER ADDITIONAL RECOMMENDATIONS: * Calibrated bedscale or standing wt for accurate CBW (post HD for dry wt) * Nephrovite 1 tab daily as supplement * Per spouse, pt is NOT allergic to food items listed on the allergy list - pt was told to avoid them due to ESRD * Monitor lytes and renal fxn closely- ESRD dx * Continue Nepro 1 tetra topher BID w/ variable PO intake .
--- NOTE | 2018-10-30 11:39 | Diagnostic Imaging Report ---
Indication: Chest pain Technique: Continuous helical transaxial imaging of the chest was obtained from the thoracic inlet to the upper abdomen after intravenous nonionic contrast administration. Coronal 2-D reformats were also obtained. Automatic Exposure Control was utilized. Total Dose length Product (DLP): 644.[address] Dose Index Volume (CTDIvol): 14.61 mGy Comparison: CT chest 09/26/2018 Findings: There is a moderate pericardial effusion. There is a moderate right pleural effusion. Generalized cardiomegaly is also present. The aorta is moderately calcified. Small nodes in the mediastinum noted. Right posterior basal atelectasis demonstrated. Groundglass opacities, abnormal reticular nodular densities within the lungs also demonstrated bilaterally. Patchy emphysematous changes with hyperlucency, paraseptal blebs noted within the upper lobes. Visualized upper abdomen demonstrating pneumobilia not comprehensively or wall evaluated on this study. Marked atrophy of both kidneys also noted. Surgical clips demonstrated in the maximilian hepatis region. 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 Again this is not evaluated well. Gallbladder is apparently absent. Query the possibility of previous pancreatic head resection/Whipple's procedure. IMPRESSION: Moderate pericardial effusion. Similar findings on the prior occasion. Moderate right pleural effusion associated posterior basal atelectasis/infiltrate. Pneumobilia and postsurgical changes suggestive of previous choledochojejunostomy/pancreatic head resection possible. This is not evaluated well on the current study. COPD and suspected interstitial fibrosis. Superimposed interstitial edema or pneumonitis not excluded. Correlate clinically. Other findings as above The CT scanner at [facility] is accredited by the [employer] and the scans are performed using dose optimization techniques as appropriate to a performed exam including Automatic Exposure control.
[2018-10-30 12:00] VITALS: BP 110/53
[2018-10-30 16:00] VITALS: BP 128/48
--- NOTE | 2018-10-30 16:10 | Nephrology Progress Note ---
Assessment/Plan Problem List: (1) ESRD (end stage renal disease) on dialysis (2) Fluid overload (3) COPD (chronic obstructive pulmonary disease) (4) Pericardial effusion (5) Pulmonary hypertension (6) Hypoxemia (7) Anemia in CKD (chronic kidney disease) Assessment Presents with respiratory distress and hypoxia Possiblities: CHF-Pul HTN- COPD (1) ESRD (end stage renal disease) on dialysis tue vibha sat (2) h/o Atrial fibrillation with rapid ventricular response (3) h/o Myocardial injury (4) Pericardial effusion (5) Fluid overload other Hypertension h/o Respiratory Arrest and Pneumonia and Hemoptysis ESRD Maulti infarct brain disease Pulm HTN Now DNR Plan HD 10/23 next 10/25- next 10/27 and DC cancelled as patient remains SOB Pulm eval chest CT next HD 10/31 BP check and BP med adjustment Optimize cardiac and pulmonary status transfused 1 unit parameters for bp meds CXR ? worsening edema Subjective ROS Limited/Unobtainable: No Constitutional: Reports: malaise Objective Objective Last 24 Hour Vital Signs Date Time Temp Pulse Resp B/P (MAP) Pulse Ox O2 Delivery O2 Flow Rate FiO2 10/30/18 12:00 96.9 70 20 110/53 (72) 100 10/30/18 09:06 73 148/55 10/30/18 09:06 148/55 10/30/18 09:00 Nasal Cannula 2.0 10/30/18 09:00 73 148/55 10/30/18 08:00 97.0 73 19 148/55 (86) 100 10/30/18 04:00 96.1 59 18 116/62 (80) 100 10/30/18 00:00 96.8 78 16 135/57 (83) 100 10/29/18 21:48 79 143/60 10/29/18 21:00 Nasal Cannula 2.0 10/29/18 20:18 Nasal Cannula 2.0 28 10/29/18 20:18 99 Nasal Cannula 2.0 28 10/29/18 20:00 97.0 79 17 143/60 (87) 99 Intake and Output 10/29/18 10/30/18 18:59 06:59 Intake Total 730.000 ml 55 ml Output Total 600 ml Balance 730.000 ml -545 ml Intake Oral 480 ml IV Total 250.000 ml 55 ml Output Urine Total 600 ml # Voids 4 Laboratory Tests 10/30/18 09:35: White Blood Count 6.2, Red Blood Count 3.14L, Hemoglobin 10.3L, Hematocrit 32.4L , Mean Corpuscular Volume 103H, Mean Corpuscular Hemoglobin 32.9H, Mean Corpuscular Hemoglobin Concent 31.9L, Red Cell Distribution Width 16.7H, Platelet Count 97L, Mean Platelet Volume 5.8L, Neutrophils (%) (Auto) , Lymphocytes (%) (Auto) , Monocytes (%) (Auto) , Eosinophils (%) (Auto) , Basophils (%) (Auto) , Differential Total Cells Counted 100, Neutrophils % ( Manual) 67, Lymphocytes % (Manual) 18L, Monocytes % (Manual) 11H, Eosinophils % (Manual) 4H, Basophils % (Manual) 0, Band Neutrophils 0, Platelet Estimate DecreasedL, Platelet Morphology Normal, Hypochromasia 1+, Anisocytosis 1+, Macrocytosis 1+, Sodium Level 134L, Potassium Level 4.0, Chloride Level 97L, Carbon Dioxide Level 30, Anion Gap 7, Blood Urea Nitrogen 34H, Creatinine 4.9H, Estimat Glomerular Filtration Rate , Glucose Level 125H, Calcium Level 8.1L, Phosphorus Level 3.2, Total Bilirubin 0.4, Aspartate Amino Transf (AST/SGOT) 17 , Alanine Aminotransferase (ALT/SGPT) 8L, Alkaline Phosphatase 105, Troponin I 0.045, C-Reactive Protein, Quantitative 1.6H, Pro-B-Type Natriuretic Peptide 03824Y, Total Protein 5.7L, Albumin 2.1L, Globulin 3.6, Albumin/Globulin Ratio 0.6L Height (Feet): 5 Height (Inches): 1.00 Weight (Pounds): 132 General Appearance: no apparent distress Objective no other changes Ady Gómez MD Oct 30, 2018 16:10
--- NOTE | 2018-10-30 16:20 | NUR ---
NURSE NOTES: RN SPOKE TO SAMANTHA AT [facility] AND MADE AWARE OF ORDER FOR 10/31/2018.
--- NOTE | 2018-10-30 19:30 | NUR ---
NURSE NOTES: Received pt sitting up in bed A&OX4, denies pain, no SOB, no distress noted. Pt is Greek speaking with limited Bengali. Able to make needs known without difficulty. IV R thumb patent and intact. Dialysis access L AV shunt bruitt and thrill present. Safety measures maintained. Bed in low position and locked, side rails up x 2, call light within reach. Will continue to monitor.
--- NOTE | 2018-10-30 19:32 | NUR ---
HAND-OFF: Report given to Lian GONZALEZ RN.
[2018-10-30 20:00] VITALS: BP 138/54
[2018-10-30] MEDS: TraZODone 50mg tab ORAL SCH (20:19)
[2018-10-30] MEDS: Miralax 17gm pkt ORAL SCH (20:20)
[2018-10-30] MEDS: Epogen (for ESRD on dialysis) SUBQ SCH (21:28)
[2018-10-30] MEDS: Cefepime HCl 1 GM in D5W 55 ML IVPB SCH (21:52)
[2018-10-31] VITALS (7 sets, daily range): BP systolic 119–164; BP diastolic 57–77
--- NOTE | 2018-10-31 02:45 | Progress Note ---
DATE: 10/30/2018 CARDIOLOGY PROGRESS NOTE SUBJECTIVE: The patient has episodes of shortness of breath. The patient continues with hemodialysis and ultrafiltration efforts. The patient is now off cardiac monitoring. OBJECTIVE: VITAL SIGNS: Blood pressure 116/62, pulse 59, and respiratory rate 18. LUNGS: With rales. NECK: Jugular venous pressure elevated. No Kussmaul sign. CARDIAC: Irregularly irregular rhythm. Normal S1 and S2. No rub. A 1/6 systolic apical murmur. ABDOMEN: Soft. No edema. LABORATORY DATA: White count 6.3 and hemoglobin 10.3. Sodium 134, potassium 4, bicarb 30, BUN 34, and creatinine 4.9. Troponin is negative. Pro-natriuretic peptide has decreased to 15,000. Albumin 2.1. IMPRESSION: The patient remains with symptomatic heart failure and probably pericardial effusion, although there is no evidence of tamponade. The patient has made improvement and gains with these symptoms as evidenced by dropping natriuretic peptide assay levels as well as improvement in his overall condition. The patient is not yet at an acceptable baseline, however, and should continue with current plan of care including titration of his cardiovascular regimen, antiarrhythmic regimen for his atrial fibrillation, which is rate controlled, and possibly more frequent hemodialysis and ultrafiltration sessions. Luis Jade M.D. DR: MARILEE JOB#: [id number] CC:
--- NOTE | 2018-10-31 07:26 | NUR ---
HAND-OFF: Report given to FERNANDA Hoyos. Pt in stable condition.
--- NOTE | 2018-10-31 07:30 | NUR ---
NURSE NOTES: Received patient in bed, awake, alert and oriented x4. Not in acute respiratory/cardiac distress. Denies any pain or discomfort @ this time. Bed is in lowest position and locked. Call light and personnel items within reach. Will continue plan of care.
--- NOTE | 2018-10-31 08:21 | Pulmonology Progress Note ---
Assessment/Plan Assessment/Plan ASSESSMENT: CHF HHD COPD pulmonary fibrosis interstitial fibrosis mild pulmonary congestion hypertension CVA CKD fluid overload PLAN keep negative as is HD with UF respiratory care oxygen tap if able supportive care maintain same and will recommend pending results impression, plan, and exam edited and reviewed in detail care discussed with RN Subjective ROS Limited/Unobtainable: Yes Allergies: Coded Allergies: BANANA (Verified Allergy, Severe, 09/05/18) GIL (Verified Allergy, Severe, 09/05/18) CARROT (Verified Allergy, Severe, 09/05/18) Dairy (Verified Allergy, Severe, 09/05/18) GRAPE (Verified Allergy, Severe, 09/05/18) Pork (Verified Allergy, Severe, 09/05/18) Potato (Verified Allergy, Severe, 08/12/18) Subjective confused overnight events noted and reviewed CT chest noted Objective Last 24 Hour Vital Signs Date Time Temp Pulse Resp B/P (MAP) Pulse Ox O2 Delivery O2 Flow Rate FiO2 10/31/18 04:00 97.2 100 19 144/68 (93) 100 76 10/31/18 00:00 97.2 97 19 147/57 (87) 99 97 10/30/18 21:15 Nasal Cannula 2.0 28 10/30/18 21:15 96 Nasal Cannula 2.0 28 10/30/18 21:00 Nasal Cannula 2.0 10/30/18 20:24 71 138/54 10/30/18 20:00 97.9 73 19 138/54 (82) 94 73 10/30/18 16:00 96.6 70 19 128/48 (74) 100 70 10/30/18 12:00 96.9 70 20 110/53 (72) 100 10/30/18 09:06 73 148/55 10/30/18 09:06 148/55 10/30/18 09:00 Nasal Cannula 2.0 10/30/18 09:00 73 148/55 Intake and Output 10/30/18 10/31/18 19:00 07:00 Intake Total 600 ml 105 ml Balance 600 ml 105 ml Intake Oral 600 ml 50 ml IV Total 55 ml # Voids 1 Objective WDWN NAD reduced breath sounds bilaterally coarse [id number] without RG; murmur NABS nontender no HSM no CCE nonfocal ALOC Microbiology Date/Time Source Procedure Growth Status 10/28/18 10:30 Sputum Expectorated Gram Stain - Final Resulted 10/28/18 10:30 Sputum Culture - Preliminary YEAST Usual Respiratory Kendy Resulted Laboratory Tests 10/30/18 09:35: White Blood Count 6.2, Red Blood Count 3.14L, Hemoglobin 10.3L, Hematocrit 32.4L , Mean Corpuscular Volume 103H, Mean Corpuscular Hemoglobin 32.9H, Mean Corpuscular Hemoglobin Concent 31.9L, Red Cell Distribution Width 16.7H, Platelet Count 97L, Mean Platelet Volume 5.8L, Neutrophils (%) (Auto) , Lymphocytes (%) (Auto) , Monocytes (%) (Auto) , Eosinophils (%) (Auto) , Basophils (%) (Auto) , Differential Total Cells Counted 100, Neutrophils % ( Manual) 67, Lymphocytes % (Manual) 18L, Monocytes % (Manual) 11H, Eosinophils % (Manual) 4H, Basophils % (Manual) 0, Band Neutrophils 0, Platelet Estimate DecreasedL, Platelet Morphology Normal, Hypochromasia 1+, Anisocytosis 1+, Macrocytosis 1+, Sodium Level 134L, Potassium Level 4.0, Chloride Level 97L, Carbon Dioxide Level 30, Anion Gap 7, Blood Urea Nitrogen 34H, Creatinine 4.9H, Estimat Glomerular Filtration Rate , Glucose Level 125H, Calcium Level 8.1L, Phosphorus Level 3.2, Total Bilirubin 0.4, Aspartate Amino Transf (AST/SGOT) 17 , Alanine Aminotransferase (ALT/SGPT) 8L, Alkaline Phosphatase 105, Troponin I 0.045, C-Reactive Protein, Quantitative 1.6H, Pro-B-Type Natriuretic Peptide 36504D, Total Protein 5.7L, Albumin 2.1L, Globulin 3.6, Albumin/Globulin Ratio 0.6L 10/31/18 05:20: Random Vancomycin Level 22.2 Current Medications Medications (Trade) Dose Ordered Sig/Kris Route PRN Reason Start Time Stop Time Status Last Admin Dose Admin Allopurinol (Zyloprim) 200 mg DAILY ORAL 10/28/18 09:00 11/21/18 08:59 10/30/18 09:07 Apixaban (Eliquis) 2.5 mg BID ORAL 10/27/18 18:00 11/21/18 08:59 10/30/18 09:06 Bisacodyl (Dulcolax) 10 mg DAILY ORAL 10/29/18 09:00 11/28/18 08:59 10/30/18 09:06 Carvedilol (Coreg) 25 mg EVERY 12 HOURS ORAL 10/27/18 21:00 11/24/18 08:59 10/30/18 20:24 Cefepime HCl 1 gm/ Dextrose 55 ml @ 110 mls/hr Q24H IVPB 10/27/18 22:00 11/04/18 21:59 10/30/18 21:52 Docusate Sodium (Colace) 250 mg BID ORAL 10/28/18 18:00 11/27/18 17:59 10/30/18 17:26 Epoetin Issa (Procrit (for ESRD on dialysis)) 10,000 units SUN- SUBQ 10/28/18 21:00 11/22/18 20:59 10/30/18 21:28 Finasteride (Proscar) 5 mg DAILY ORAL 10/28/18 09:00 11/21/18 08:59 10/30/18 09:06 Isosorbide Mononitrate (Imdur) 30 mg DAILY ORAL 10/28/18 09:00 11/21/18 08:59 10/30/18 09:06 Lactulose (Cephulac) 30 gm TIDPRN PRN ORAL Constipation 10/27/18 17:30 11/26/18 17:29 10/28/18 06:17 Nifedipine (Procardia XL) 30 mg DAILY ORAL 10/28/18 09:00 11/21/18 08:59 10/30/18 09:06 Pantoprazole (Protonix) 40 mg DAILY ORAL 10/28/18 09:00 11/22/18 08:59 10/30/18 09:06 Polyethylene Glycol (Miralax) 17 gm BEDTIME ORAL 10/27/18 21:00 11/26/18 20:59 10/30/18 20:20 Sevelamer Carbonate (Renvela) 800 mg THREE TIMES A DAY ORAL 10/27/18 18:00 11/21/18 17:59 10/30/18 17:26 Trazodone HCl (Desyrel) 50 mg BEDTIME ORAL 10/27/18 21:00 11/20/18 23:14 10/30/18 20:19 Vancomycin HCl (Vanco rx to dose) 1 ea DAILY PRN MISC Per rx protocol 10/28/18 09:00 11/20/18 21:59 Juan José Jin MD Oct 31, 2018 08:21
[2018-10-31] MEDS: Docusate 250mg cap ORAL SCH ×2 (08:22→17:04)
[2018-10-31] MEDS: Allopurinol 100mg Tab ORAL SCH (08:23)
[2018-10-31] MEDS: Eliquis 2.5mg tablet ORAL SCH ×3 (08:23→17:04)
[2018-10-31] MEDS: Imdur 30mg tab ORAL SCH (08:52)
[2018-10-31] MEDS: Carvedilol 25mg Tab ORAL SCH ×2 (08:53→22:20)
[2018-10-31] MEDS: Bisacodyl EC 5mg tab ORAL SCH (08:54)
--- NOTE | 2018-10-31 09:50 | NUR ---
NURSE NOTES: Patient is alert and oriented x4. RN explained to the patient about thoracentesis. Patient fully understood and consented. RN received order from Dr. Jin to do PT,PTT, INR, culture from the body fluid tomorrow and hold eliquis x2 days until thoracentesis is done. Order read back and carried out. Alma aware. VIP dialysis nurse in the facility, will come up later for the dialysis.
--- NOTE | 2018-10-31 11:36 | Nephrology Progress Note ---
Assessment/Plan Problem List: (1) ESRD (end stage renal disease) on dialysis (2) Fluid overload (3) COPD (chronic obstructive pulmonary disease) (4) Pericardial effusion (5) Pulmonary hypertension (6) Hypoxemia (7) Anemia in CKD (chronic kidney disease) Assessment Presents with respiratory distress and hypoxia Possiblities: CHF-Pul HTN- COPD (1) ESRD (end stage renal disease) on dialysis tue vibha sat (2) h/o Atrial fibrillation with rapid ventricular response (3) h/o Myocardial injury (4) Pericardial effusion (5) Fluid overload other Hypertension h/o Respiratory Arrest and Pneumonia and Hemoptysis ESRD Maulti infarct brain disease Pulm HTN Now DNR Plan HD 10/23 next 10/25- next 10/27 and 10/28 DC cancelled as patient remains SOB Pulm eval chest CT next HD 10/31 BP check and BP med adjustment Optimize cardiac and pulmonary status transfused 1 unit parameters for bp meds CXR ? worsening edema Subjective ROS Limited/Unobtainable: No Constitutional: Reports: malaise Objective Objective Last 24 Hour Vital Signs Date Time Temp Pulse Resp B/P (MAP) Pulse Ox O2 Delivery O2 Flow Rate FiO2 10/31/18 09:00 Nasal Cannula 2.0 10/31/18 08:54 69 119/60 10/31/18 08:53 69 119/60 10/31/18 08:52 119/60 10/31/18 08:00 97.4 100 18 119/60 (79) 100 69 10/31/18 04:00 97.2 100 19 144/68 (93) 100 76 10/31/18 00:00 97.2 97 19 147/57 (87) 99 97 10/30/18 21:15 Nasal Cannula 2.0 28 10/30/18 21:15 96 Nasal Cannula 2.0 28 10/30/18 21:00 Nasal Cannula 2.0 10/30/18 20:24 71 138/54 10/30/18 20:00 97.9 73 19 138/54 (82) 94 73 10/30/18 16:00 96.6 70 19 128/48 (74) 100 70 10/30/18 12:00 96.9 70 20 110/53 (72) 100 Intake and Output 10/30/18 10/31/18 19:00 07:00 Intake Total 600 ml 105 ml Balance 600 ml 105 ml Intake Oral 600 ml 50 ml IV Total 55 ml # Voids 1 Laboratory Tests 10/31/18 05:20: Random Vancomycin Level 22.2 Height (Feet): 5 Height (Inches): 1.00 Weight (Pounds): 137 General Appearance: no apparent distress Cardiovascular: normal rate Respiratory/Chest: decreased breath sounds Abdomen: soft Objective no other changes Ady Gómez MD Oct 31, 2018 11:36
--- NOTE | 2018-10-31 13:12 | NUR ---
MEDICAL AUTHORIZATION SPECIALISTPRESS CATCHER SI: CHF T. 97.4 HR 100 RR 18 B/P 119/[address] CHEST=RIGHT PLEURAL EFFUSION. MODERATE PERICARDIAL EFFUSION. IS; VANCO IV CEFEPIME IV ELIQUISE PO THORACENTESIS MED/SURG STATUS
--- NOTE | 2018-10-31 18:15 | General Progress Note ---
Assessment/Plan Problem List: (1) Pulmonary hypertension ICD Codes: I27.20 - Pulmonary hypertension, unspecified SNOMED: 68546793 (2) Hypoxemia ICD Codes: R09.02 - Hypoxemia SNOMED: 724148291 (3) Hypertensive kidney disease ICD Codes: I12.9 - Hypertensive chronic kidney disease with stage 1 through stage 4 chronic kidney disease, or unspecified chronic kidney disease SNOMED: 21291401 (4) COPD (chronic obstructive pulmonary disease) with emphysema ICD Codes: J43.9 - Emphysema, unspecified SNOMED: 06422897 (5) Shortness of breath ICD Codes: R06.02 - Shortness of breath SNOMED: 950964460 (6) COPD (chronic obstructive pulmonary disease) with chronic bronchitis ICD Codes: J44.9 - Chronic obstructive pulmonary disease, unspecified SNOMED: 058841603 (7) Acute respiratory failure ICD Codes: J96.00 - Acute respiratory failure SNOMED: 50354452 (8) Hepatic encephalopathy ICD Codes: K72.90 - Hepatic encephalopathy SNOMED: 72718342 (9) Fluid overload ICD Codes: E87.70 - Hypervolemia SNOMED: 28984991 (10) Hypertension ICD Codes: I10 - Hypertension SNOMED: 48676185 (11) Non-compliance with treatment ICD Codes: Z91.19 - Noncompliance with treatment SNOMED: 6284859 (12) Atrial fibrillation with rapid ventricular response ICD Codes: I48.91 - Atrial fibrillation with rapid ventricular response SNOMED: 229956429160492 Status: stable, progressing Assessment/Plan cont current rx o2 resp care iv abx tap effusion mobilize HD per renal monitor h/h dc planning when cleared by pulm Subjective ROS Limited/Unobtainable: No Constitutional: Reports: malaise, weakness HEENT: Reports: no symptoms Cardiovascular: Reports: no symptoms Respiratory: Reports: cough Gastrointestinal/Abdominal: Reports: no symptoms Genitourinary: Reports: no symptoms Neurologic/Psychiatric: Reports: no symptoms Endocrine: Reports: no symptoms Hematologic/Lymphatic: Reports: anemia Allergies: Coded Allergies: BANANA (Verified Allergy, Severe, 09/05/18) GIL (Verified Allergy, Severe, 09/05/18) CARROT (Verified Allergy, Severe, 09/05/18) Dairy (Verified Allergy, Severe, 09/05/18) GRAPE (Verified Allergy, Severe, 09/05/18) Pork (Verified Allergy, Severe, 09/05/18) Potato (Verified Allergy, Severe, 08/12/18) All Systems: reviewed and negative except above Subjective states that he is feeling better today. CT noted- Moderate pericardial effusion. Similar findings on the prior occasion. Moderate right pleural effusion associated posterior basal atelectasis/ infiltrate. Pneumobilia and postsurgical changes suggestive of previous choledochojejunostomy/pancreatic head resection possible. This is not evaluated well on the current study. COPD and suspected interstitial fibrosis. Superimposed interstitial edema or pneumonitis not excluded. Correlate clinically. currently on iv abx. stable in 2 l nasal cannula Objective Last 24 Hour Vital Signs Date Time Temp Pulse Resp B/P (MAP) Pulse Ox O2 Delivery O2 Flow Rate FiO2 10/31/18 17:30 97.9 73 18 152/66 (94) 100 10/31/18 16:00 97.9 75 18 164/77 (106) 100 10/31/18 14:30 Nasal Cannula 2.0 28 10/31/18 14:30 99 Nasal Cannula 2.0 28 10/31/18 12:00 97.9 72 18 143/69 (93) 100 10/31/18 09:00 Nasal Cannula 2.0 10/31/18 08:54 69 119/60 10/31/18 08:53 69 119/60 10/31/18 08:52 119/60 10/31/18 08:00 97.4 100 18 119/60 (79) 100 69 10/31/18 04:00 97.2 100 19 144/68 (93) 100 76 10/31/18 00:00 97.2 97 19 147/57 (87) 99 97 10/30/18 21:15 Nasal Cannula 2.0 28 10/30/18 21:15 96 Nasal Cannula 2.0 28 10/30/18 21:00 Nasal Cannula 2.0 10/30/18 20:24 71 138/54 10/30/18 20:00 97.9 73 19 138/54 (82) 94 73 Intake and Output 10/30/18 10/31/18 18:59 06:59 Intake Total 600 ml 105 ml Balance 600 ml 105 ml Intake Oral 600 ml 50 ml IV Total 55 ml # Voids 1 Laboratory Tests 10/31/18 05:20: Random Vancomycin Level 22.2 Height (Feet): 5 Height (Inches): 1.00 Weight (Pounds): 137 Objective General Appearance: WD/WN, alert Neck: supple Cardiovascular: regular rhythm Respiratory/Chest: decreased breath sounds, crackles/rales Abdomen: normal bowel sounds, non tender, soft, no organomegaly Edema: no edema noted Arm (L), no edema noted Arm (R), no edema noted Leg (L), no edema noted Leg (R), no edema noted Pedal (L), no edema noted Pedal (R), no edema noted Generalized Neurologic: heavy forger II-XII grossly normal, alert, oriented x 3, responsive Bulmaro Perez MD Oct 31, 2018 18:15
--- NOTE | 2018-10-31 19:10 | NUR ---
NURSE NOTES: Patient just finished dialysis and during round with the night stocker nurse , noted with blood on AV shunt dressing and RN applied pressure dressing and monitored @ the bedside. No more bleeding noted. Endorsed to the next shift to monitor.
--- NOTE | 2018-10-31 19:11 | NUR ---
HAND-OFF: Report given to Cristiane.
--- NOTE | 2018-10-31 19:20 | NUR ---
NURSE NOTES: Received a report from FERNANDA Ambriz. Pt is in stable condition. AAOX4. Able to make needs known. No respiratory distress noted. Uses NC 2L/min. No c/o pain/dicomfort. IV access is leaking. Will insert another one. L upper arm AV shunt + thrill and bruit. Bed in lowest position. Bed alarm on. Call light within reach. Will continue to monitor.
[2018-10-31] MEDS: Miralax 17gm pkt ORAL SCH (21:00)
--- NOTE | 2018-10-31 21:00 | NUR ---
NURSE NOTES: Pt's IV is leaking. Will try to insert another one.
[2018-10-31] MEDS ORDERED: Vancomycin 750mg/NS 250ml IVPB ONE (22:00)
[2018-10-31] MEDS: TraZODone 50mg tab ORAL SCH (22:20)
[2018-10-31] MEDS: Cefepime HCl 0.5 GM in D5W 55 ML IVPB SCH (23:48)
[2018-11-01] VITALS: BP 147/56
--- NOTE | 2018-11-01 | NUR ---
NURSE NOTES: Nurse Aragon inserted an IV for the pt.
--- NOTE | 2018-11-01 01:30 | NUR ---
NURSE NOTES: The pt is complaining of pain on the IV site. Charge Nurse Elmira tried to insert one, but failed. Another nurse will try again to insert another one, because Vancomycin needs to infuse.
[2018-11-01 04:00] VITALS: BP 150/64
--- NOTE | 2018-11-01 04:00 | NUR ---
NURSE NOTES: Charge Nurse Qamar tried to insert the IV but failed.
--- NOTE | 2018-11-01 04:25 | NUR ---
NURSE NOTES: Contacted Dr. Perez about the pt having no IV access, and vancomycin bag still not finished. Still waiting for response.
--- NOTE | 2018-11-01 04:45 | NUR ---
NURSE NOTES: Nurse Koko Perez successfully inserted the IV, bag of vancomycin is now running.
--- NOTE | 2018-11-01 05:00 | Progress Note ---
DATE: 10/31/2018 CARDIOLOGY PROGRESS NOTE SUBJECTIVE: The patient has less shortness of breath and congestion. He did have a CT scan of the chest notable for moderate pericardial effusion and pleural effusion. scheduled for thoracentesis. He did improve with sequential dialysis, but refused the session to be completed. OBJECTIVE: VITAL SIGNS: Blood pressure 152/66, pulse 73, and respirations 18. Monitored rhythm, atrial fibrillation in the past. Presently, he is off monitor . LUNGS: Diminished breath sounds on the right. NECK: No Kussmaul sign. CARDIAC: Irregularly irregular rhythm. Normal S1 and S2. No rub. ABDOMEN: Soft. No edema. Catheter site clean and dry. LABORATORY DATA: Reviewed. IMPRESSION: 1. Acute on chronic diastolic congestive heart failure. 2. Pericardial effusion. 3. End-stage renal disease. 4. Right pleural effusion. 5. Possible right pneumonia. 6. Interstitial lung disease. 7. Atrial fibrillation. 8. Chronic liver disease. PLAN: 1. Antimicrobials. 2. Thoracentesis. 3. Hemodialysis with continued ultrafiltration efforts. 4. Titration of anti-failure and antihypertensive regimen ongoing. Luis Jade M.D. DR: DAVID JOB#: [id number] CC:
--- NOTE | 2018-11-01 05:00 | NUR ---
NURSE NOTES: Contacted Dr. Perez about the pt having an IV access and vancomycin running. Still waiting for response.
--- NOTE | 2018-11-01 05:56 | NUR ---
NURSE NOTES: Dr. Perez responded, he is now aware about the IV access and Vancomycin.
[2018-11-01 06:51] LABS: INR 1.2 (0.9-1.1)
--- NOTE | 2018-11-01 07:30 | NUR ---
HAND-OFF: Report given to FERNANDA Burrows.
--- NOTE | 2018-11-01 07:35 | General Progress Note ---
Assessment/Plan Problem List: (1) Pulmonary hypertension ICD Codes: I27.20 - Pulmonary hypertension, unspecified SNOMED: 66615505 (2) Hypoxemia ICD Codes: R09.02 - Hypoxemia SNOMED: 312692543 (3) Hypertensive kidney disease ICD Codes: I12.9 - Hypertensive chronic kidney disease with stage 1 through stage 4 chronic kidney disease, or unspecified chronic kidney disease SNOMED: 39824258 (4) COPD (chronic obstructive pulmonary disease) with emphysema ICD Codes: J43.9 - Emphysema, unspecified SNOMED: 33157803 (5) Shortness of breath ICD Codes: R06.02 - Shortness of breath SNOMED: 079155255 (6) COPD (chronic obstructive pulmonary disease) with chronic bronchitis ICD Codes: J44.9 - Chronic obstructive pulmonary disease, unspecified SNOMED: 006829749 (7) Acute respiratory failure ICD Codes: J96.00 - Acute respiratory failure SNOMED: 09510962 (8) Hepatic encephalopathy ICD Codes: K72.90 - Hepatic encephalopathy SNOMED: 51930444 (9) Fluid overload ICD Codes: E87.70 - Hypervolemia SNOMED: 69587058 (10) Hypertension ICD Codes: I10 - Hypertension SNOMED: 34070841 (11) Non-compliance with treatment ICD Codes: Z91.19 - Noncompliance with treatment SNOMED: 6098390 (12) Atrial fibrillation with rapid ventricular response ICD Codes: I48.91 - Atrial fibrillation with rapid ventricular response SNOMED: 148720137197910 Status: stable, progressing Assessment/Plan cont current rx o2 resp care iv abx- sputum culture with normal [place] and yeast doubt fungal pna tap effusion mobilize HD per renal monitor h/h dc planning when cleared by pulm- ?tomorrow Subjective ROS Limited/Unobtainable: No Constitutional: Reports: malaise, weakness HEENT: Reports: no symptoms Cardiovascular: Reports: no symptoms Respiratory: Reports: cough, shortness of breath Gastrointestinal/Abdominal: Reports: no symptoms Genitourinary: Reports: no symptoms Neurologic/Psychiatric: Reports: no symptoms Endocrine: Reports: no symptoms Hematologic/Lymphatic: Reports: anemia Allergies: Coded Allergies: BANANA (Verified Allergy, Severe, 09/05/18) GIL (Verified Allergy, Severe, 09/05/18) CARROT (Verified Allergy, Severe, 09/05/18) Dairy (Verified Allergy, Severe, 09/05/18) GRAPE (Verified Allergy, Severe, 09/05/18) Pork (Verified Allergy, Severe, 09/05/18) Potato (Verified Allergy, Severe, 08/12/18) All Systems: reviewed and negative except above Subjective no complaints. npo for thoracentesis. sob is "better." Objective Last 24 Hour Vital Signs Date Time Temp Pulse Resp B/P (MAP) Pulse Ox O2 Delivery O2 Flow Rate FiO2 11/01/18 04:00 96.4 65 20 150/64 (92) 100 65 11/01/18 00:00 96.7 69 20 147/56 (86) 100 69 10/31/18 22:20 75 157/59 10/31/18 21:00 Nasal Cannula 2.0 10/31/18 20:35 Nasal Cannula 2.0 28 10/31/18 20:35 98 Nasal Cannula 2.0 28 10/31/18 20:00 97.3 75 20 157/59 (91) 100 75 10/31/18 17:30 97.9 73 18 152/66 (94) 100 10/31/18 16:00 97.9 75 18 164/77 (106) 100 10/31/18 14:30 Nasal Cannula 2.0 28 10/31/18 14:30 99 Nasal Cannula 2.0 28 10/31/18 12:00 97.9 72 18 143/69 (93) 100 10/31/18 09:00 Nasal Cannula 2.0 10/31/18 08:54 69 119/60 10/31/18 08:53 69 119/60 10/31/18 08:52 119/60 10/31/18 08:00 97.4 100 18 119/60 (79) 100 69 Intake and Output 10/31/18 11/01/18 19:00 07:00 Intake Total 200 ml 170 ml Output Total 100 ml 100 ml Balance 100 ml 70 ml Intake Oral 200 ml 60 ml IV Total 110 ml Output Urine Total 100 ml 100 ml # Voids 1 2 # Bowel Movements 3 Laboratory Tests 11/01/18 05:40: Prothrombin Time 12.1H, Prothromb Time International Ratio 1.2H, Activated Partial Thromboplast Time 35H Height (Feet): 5 Height (Inches): 1.00 Weight (Pounds): 137 Objective General Appearance: WD/WN, alert Neck: supple Cardiovascular: regular rhythm Respiratory/Chest: decreased breath sounds, crackles/rales Abdomen: normal bowel sounds, non tender, soft, no organomegaly Edema: no edema noted Arm (L), no edema noted Arm (R), no edema noted Leg (L), no edema noted Leg (R), no edema noted Pedal (L), no edema noted Pedal (R), no edema noted Generalized Neurologic: manager photo II-XII grossly normal, alert, oriented x 3, responsive UBulmaro horne MD Nov 01, 2018 07:35
[2018-11-01 08:00] VITALS: BP 124/61
[2018-11-01] MEDS: Carvedilol 25mg Tab ORAL SCH ×2 (08:37→20:56)
[2018-11-01] MEDS: Docusate 250mg cap ORAL SCH ×2 (08:37→18:11)
[2018-11-01] MEDS: Imdur 30mg tab ORAL SCH (08:38)
[2018-11-01] MEDS: Allopurinol 100mg Tab ORAL SCH (08:38)
[2018-11-01] MEDS: Bisacodyl EC 5mg tab ORAL SCH (08:39)
[2018-11-01] MEDS: Eliquis 2.5mg tablet ORAL SCH ×2 (08:40→18:00)
--- NOTE | 2018-11-01 08:59 | Pulmonology Progress Note ---
Assessment/Plan Assessment/Plan ASSESSMENT: CHF HHD COPD pulmonary fibrosis interstitial fibrosis mild pulmonary congestion hypertension CVA CKD fluid overload PLAN keep negative as is HD with UF respiratory care without change oxygen tap if able supportive care stable for dc per pulmonary conservative care likely at present as patient relatively asymptomatic; no evidence of UIP pattern to justify antifibrotic agents impression, plan, and exam edited and reviewed in detail care discussed with RN Subjective ROS Limited/Unobtainable: Yes Allergies: Coded Allergies: BANANA (Verified Allergy, Severe, 09/05/18) GIL (Verified Allergy, Severe, 09/05/18) CARROT (Verified Allergy, Severe, 09/05/18) Dairy (Verified Allergy, Severe, 09/05/18) GRAPE (Verified Allergy, Severe, 09/05/18) Pork (Verified Allergy, Severe, 09/05/18) Potato (Verified Allergy, Severe, 08/12/18) Subjective confused overnight events noted and reviewed no distress Objective Last 24 Hour Vital Signs Date Time Temp Pulse Resp B/P (MAP) Pulse Ox O2 Delivery O2 Flow Rate FiO2 11/01/18 08:38 67 124/61 11/01/18 08:38 124/61 11/01/18 08:37 67 124/61 11/01/18 08:00 98.0 67 19 124/61 (82) 100 67 11/01/18 04:00 96.4 65 20 150/64 (92) 100 65 11/01/18 00:00 96.7 69 20 147/56 (86) 100 69 10/31/18 22:20 75 157/59 10/31/18 21:00 Nasal Cannula 2.0 10/31/18 20:35 Nasal Cannula 2.0 28 10/31/18 20:35 98 Nasal Cannula 2.0 28 10/31/18 20:00 97.3 75 20 157/59 (91) 100 75 10/31/18 17:30 97.9 73 18 152/66 (94) 100 10/31/18 16:00 97.9 75 18 164/77 (106) 100 10/31/18 14:30 Nasal Cannula 2.0 28 10/31/18 14:30 99 Nasal Cannula 2.0 28 10/31/18 12:00 97.9 72 18 143/69 (93) 100 10/31/18 09:00 Nasal Cannula 2.0 Intake and Output 10/31/18 11/01/18 19:00 07:00 Intake Total 200 ml 170 ml Output Total 100 ml 100 ml Balance 100 ml 70 ml Intake Oral 200 ml 60 ml IV Total 110 ml Output Urine Total 100 ml 100 ml # Voids 1 2 # Bowel Movements 3 Objective WDWN NAD reduced breath sounds bilaterally coarse without change [id number] without RG; murmur NABS nontender no HSM no CCE nonfocal ALOC Laboratory Tests 11/01/18 05:40: Prothrombin Time 12.1H, Prothromb Time International Ratio 1.2H, Activated Partial Thromboplast Time 35H Current Medications Medications (Trade) Dose Ordered Sig/Kris Route PRN Reason Start Time Stop Time Status Last Admin Dose Admin Allopurinol (Zyloprim) 200 mg DAILY ORAL 10/28/18 09:00 11/21/18 08:59 11/01/18 08:38 Apixaban (Eliquis) 2.5 mg BID ORAL 10/27/18 18:00 11/21/18 08:59 10/30/18 09:06 Bisacodyl (Dulcolax) 10 mg DAILY ORAL 10/29/18 09:00 11/28/18 08:59 11/01/18 08:39 Carvedilol (Coreg) 25 mg EVERY 12 HOURS ORAL 10/27/18 21:00 11/24/18 08:59 11/01/18 08:37 Cefepime HCl 0.5 gm/Dextrose 55 ml @ 110 mls/hr Q24H IVPB 10/31/18 21:00 11/07/18 20:59 10/31/18 23:48 Docusate Sodium (Colace) 250 mg BID ORAL 10/28/18 18:00 11/27/18 17:59 11/01/18 08:37 Epoetin Issa (Procrit (for ESRD on dialysis)) 10,000 units SUN-SUN-SUN SUBQ 10/28/18 21:00 11/22/18 20:59 10/30/18 21:28 Finasteride (Proscar) 5 mg DAILY ORAL 10/28/18 09:00 11/21/18 08:59 11/01/18 08:37 Isosorbide Mononitrate (Imdur) 30 mg DAILY ORAL 10/28/18 09:00 11/21/18 08:59 11/01/18 08:38 Lactulose (Cephulac) 30 gm TIDPRN PRN ORAL Constipation 10/27/18 17:30 11/26/18 17:29 10/28/18 06:17 Nifedipine (Procardia XL) 30 mg DAILY ORAL 10/28/18 09:00 11/21/18 08:59 11/01/18 08:38 Pantoprazole (Protonix) 40 mg DAILY ORAL 10/28/18 09:00 11/22/18 08:59 11/01/18 08:38 Polyethylene Glycol (Miralax) 17 gm BEDTIME ORAL 10/27/18 21:00 11/26/18 20:59 10/30/18 20:20 Sevelamer Carbonate (Renvela) 800 mg THREE TIMES A DAY ORAL 10/27/18 18:00 11/21/18 17:59 11/01/18 08:38 Trazodone HCl (Desyrel) 50 mg BEDTIME ORAL 10/27/18 21:00 11/20/18 23:14 10/31/18 22:20 Vancomycin HCl (Vanco rx to dose) 1 ea DAILY PRN MISC Per rx protocol 10/28/18 09:00 11/20/18 21:59 Juan José Jin MD Nov 01, 2018 08:59
--- NOTE | 2018-11-01 11:31 | Nephrology Progress Note ---
Assessment/Plan Problem List: (1) ESRD (end stage renal disease) on dialysis (2) Fluid overload (3) COPD (chronic obstructive pulmonary disease) (4) Pericardial effusion (5) Pulmonary hypertension (6) Hypoxemia (7) Anemia in CKD (chronic kidney disease) Assessment Presents with respiratory distress and hypoxia Possiblities: CHF-Pul HTN- COPD (1) ESRD (end stage renal disease) on dialysis tue vibha sat (2) h/o Atrial fibrillation with rapid ventricular response (3) h/o Myocardial injury (4) Pericardial effusion (5) Fluid overload other Hypertension h/o Respiratory Arrest and Pneumonia and Hemoptysis ESRD Maulti infarct brain disease Pulm HTN Now DNR Plan HD 10/31 Pulm eval appreciated chest CT noted next HD 11/02 Thoracynthesis as needed BP check and BP med adjustment Optimize cardiac and pulmonary status transfused 1 unit parameters for bp meds CXR ? worsening edema Subjective ROS Limited/Unobtainable: No Constitutional: Reports: malaise Objective Objective Last 24 Hour Vital Signs Date Time Temp Pulse Resp B/P (MAP) Pulse Ox O2 Delivery O2 Flow Rate FiO2 11/01/18 09:41 98 Nasal Cannula 2.0 28 11/01/18 09:41 Nasal Cannula 2.0 28 11/01/18 08:38 67 124/61 11/01/18 08:38 124/61 11/01/18 08:37 67 124/61 11/01/18 08:00 98.0 67 19 124/61 (82) 100 67 11/01/18 04:00 96.4 65 20 150/64 (92) 100 65 11/01/18 00:00 96.7 69 20 147/56 (86) 100 69 10/31/18 22:20 75 157/59 10/31/18 21:00 Nasal Cannula 2.0 10/31/18 20:35 Nasal Cannula 2.0 28 10/31/18 20:35 98 Nasal Cannula 2.0 28 10/31/18 20:00 97.3 75 20 157/59 (91) 100 75 10/31/18 17:30 97.9 73 18 152/66 (94) 100 10/31/18 16:00 97.9 75 18 164/77 (106) 100 10/31/18 14:30 Nasal Cannula 2.0 28 10/31/18 14:30 99 Nasal Cannula 2.0 28 10/31/18 12:00 97.9 72 18 143/69 (93) 100 Intake and Output 10/31/18 11/01/18 19:00 07:00 Intake Total 200 ml 170 ml Output Total 100 ml 100 ml Balance 100 ml 70 ml Intake Oral 200 ml 60 ml IV Total 110 ml Output Urine Total 100 ml 100 ml # Voids 1 2 # Bowel Movements 3 Laboratory Tests 11/01/18 05:40: Prothrombin Time 12.1H, Prothromb Time International Ratio 1.2H, Activated Partial Thromboplast Time 35H Height (Feet): 5 Height (Inches): 1.00 Weight (Pounds): 132 General Appearance: no apparent distress Cardiovascular: normal rate Respiratory/Chest: decreased breath sounds Abdomen: soft Objective no other changes Ady Gómez MD Nov 01, 2018 11:31
[2018-11-01 12:00] VITALS: BP 118/55
--- NOTE | 2018-11-01 13:12 | NUR ---
ST NOTE: ST WEEKLY: PT PARTIALLY MET PO INTAKE GOALS. NURSING STAFF MET [employer] GOALS. CONTINUE SKILLED ST SERVICE. FOLLOWED UP PT'S CONDITIONS. CURRENTLY, PT IS NPO FOR PROCEDURE. DISCUSSED WITH PT RE:DIET CONSISTENCY AND DIET MODIFICATION.
--- NOTE | 2018-11-01 13:58 | NUR ---
SHIRT TRIMMERDRIVEWAY ATTENDANT SI; CONGESTION SOB S/P THORACENTESIS T. 98.0 HR 67 RR 19 B/P 124/64 PT 12.1 INR 1.2 PTT 35 IS: CEFEPIME IV PROCARDIA COREG ELIQUISE PO MED/SURG STATUS
--- NOTE | 2018-11-01 15:13 | NUR ---
SS note Chart reviewed; no SW needs identified at this time. Sw to follow as needed.
[2018-11-01 16:00] VITALS: BP 108/55
--- NOTE | 2018-11-01 18:47 | NUR ---
NURSE NOTES: inquired dr. Perez regarding Eliquis, as PLT 97. Dr asked it to be held.
--- NOTE | 2018-11-01 19:20 | NUR ---
NURSE NOTES: Received a report from FERNANDA Burrows. Pt is in stable condition. AAOX4. Able to make needs known. No respiratory distress noted. Uses NC 2L/min. No c/o pain/discomfort. IV access is patent and intact. L upper arm AV shunt + thrill and bruit. Bed in lowest position. Bed alarm on. Call light within reach. Will continue to monitor.
[2018-11-01 20:00] VITALS: BP 104/52
[2018-11-01] MEDS: Miralax 17gm pkt ORAL SCH (20:55)
[2018-11-01] MEDS ORDERED: Epogen (for ESRD on dialysis) SUBQ SCH (21:00)
[2018-11-01] MEDS: TraZODone 50mg tab ORAL SCH (21:37)
[2018-11-01] MEDS: Cefepime HCl 0.5 GM in D5W 55 ML IVPB SCH (22:10)
[2018-11-02] VITALS: BP 142/58
--- NOTE | 2018-11-02 01:30 | Progress Note ---
DATE: 11/01/2018 CARDIOLOGY PROGRESS NOTE SUBJECTIVE: The patient is status post thoracentesis. He is less congested, but still has some episodes of shortness of breath. OBJECTIVE: VITAL SIGNS: Blood pressure 124/61, pulse 67, respiratory rate 19. NECK: Supple. Jugular venous pressure elevated. No Kussmaul sign. LUNGS: With few rales and diminished breath sounds on the right. CARDIAC: Irregularly irregular. Normal S1 and S2. No new murmur. ABDOMEN: Soft. EXTREMITIES: No edema. LABORATORY DATA: Natriuretic peptide no new laboratory studies. IMPRESSION: 1. Gram-negative pneumonia with Pseudomonas aeruginosa. 2. Acute on chronic diastolic congestive heart failure. 3. End-stage renal disease. 4. Atrial fibrillation, chronic. 5. Pericardial effusion. 6. Recurring pleural effusion, status post thoracentesis. PLAN: 1. Hemodialysis with ultrafiltration. 2. Periodic thoracentesis. 3. Cardioembolic prophylaxis with apixaban. 4. Maintain beta-blockade. 5. We will treat with Levaquin for pulmonary infection. Luis Jade M.D. DR: Babar JOB#: [id number] CC:
[2018-11-02 04:00] VITALS: BP 139/63
[2018-11-02 05:38] LABS: HEMATOCRIT 34.3 % (42.0-52.0); HEMOGLOBIN 11.1 G/DL (14.2-18.0); MEAN CORPUSCULAR VOLUME 103 FL (80-99); PLATELET COUNT 83 K/UL (150-450); RED BLOOD COUNT 3.33 M/UL (4.70-6.10); RED CELL DISTRIBUTION WIDTH 16.8 % (11.6-14.8); WHITE BLOOD COUNT 7.2 K/UL (4.8-10.8)
[2018-11-02 06:03] LABS: ALANINE AMINOTRANSFERASE 17 U/L (12-78); ALBUMIN 2.2 G/DL (3.4-5.0); ALBUMIN/GLOBULIN RATIO 0.6 (1.0-2.7); ALKALINE PHOSPHATASE 108 U/L (46-116); ANION GAP 6 mmol/L (5-15); ASPARTATE AMINO TRANSFERASE 17 U/L (15-37); BILIRUBIN,TOTAL 0.4 MG/DL (0.2-1.0); BLOOD UREA NITROGEN 35 mg/dL (7-18); CALCIUM 8.4 MG/DL (8.5-10.1); CARBON DIOXIDE 29 MMOL/L (21-32); CHLORIDE 99 MMOL/L (98-107); CREATININE 5.5 MG/DL (0.55-1.30); PHOSPHORUS 3.3 MG/DL (2.5-4.9); POTASSIUM 4.1 MMOL/L (3.5-5.1); SODIUM 134 MMOL/L (136-145)
--- NOTE | 2018-11-02 07:45 | NUR ---
HAND-OFF: Report given to FERNANDA Fernandez.
--- NOTE | 2018-11-02 07:51 | NUR ---
NURSE NOTES: Received patient in bed, awake, alert and oriented x4. Not in acute respiratory/cardiac distress. Denies any pain or discomfort @ this time. AV shunt without dressing , no bleeding with (+)bruit and thrill.Bed is in lowest position and locked. Call light and personnel items within reach. Will continue plan of care.
[2018-11-02 08:00] VITALS: BP 144/60
[2018-11-02] MEDS: Docusate 250mg cap ORAL SCH ×3 (08:47→17:50)
[2018-11-02] MEDS: Bisacodyl EC 5mg tab ORAL SCH ×2 (08:48→08:52)
[2018-11-02] MEDS: Imdur 30mg tab ORAL SCH (08:48)
[2018-11-02] MEDS: Allopurinol 100mg Tab ORAL SCH (08:48)
[2018-11-02] MEDS: Carvedilol 25mg Tab ORAL SCH ×2 (08:49→21:02)
[2018-11-02] MEDS: Eliquis 2.5mg tablet ORAL SCH ×2 (09:00→17:29)
--- NOTE | 2018-11-02 09:00 | NUR ---
NURSE NOTES: Patient did not want to take his stool softner and bisacodyl since he had bowel movement. Will continue to monitor.
[2018-11-02 12:00] VITALS: BP 148/67
--- NOTE | 2018-11-02 12:01 | Pulmonology Progress Note ---
Assessment/Plan Assessment/Plan ASSESSMENT: CHF HHD COPD pulmonary fibrosis interstitial fibrosis mild pulmonary congestion hypertension CVA CKD fluid overload pleural effusion s/p tap (1.1 liters) thrombocytopenia PLAN keep negative as is cxr improved HD with UF respiratory care without change oxygen tap if able supportive care stable for dc per pulmonary conservative care likely at present as patient relatively asymptomatic; no evidence of UIP pattern to justify antifibrotic agents impression, plan, and exam edited and reviewed in detail care discussed with RN Subjective Allergies: Coded Allergies: BANANA (Verified Allergy, Severe, 09/05/18) GIL (Verified Allergy, Severe, 09/05/18) CARROT (Verified Allergy, Severe, 09/05/18) Dairy (Verified Allergy, Severe, 09/05/18) GRAPE (Verified Allergy, Severe, 09/05/18) Pork (Verified Allergy, Severe, 09/05/18) Potato (Verified Allergy, Severe, 08/12/18) Subjective confused overnight events noted and reviewed no distress Objective Last 24 Hour Vital Signs Date Time Temp Pulse Resp B/P (MAP) Pulse Ox O2 Delivery O2 Flow Rate FiO2 11/02/18 09:00 Nasal Cannula 2.0 11/02/18 08:49 72 144/60 11/02/18 08:48 144/60 11/02/18 08:00 97.0 72 18 144/60 (88) 100 11/02/18 04:00 98.6 80 17 139/63 (88) 100 80 11/02/18 00:00 98.5 63 18 142/58 (86) 100 63 11/01/18 21:00 Nasal Cannula 2.0 11/01/18 20:05 99 Nasal Cannula 2.0 28 11/01/18 20:05 Nasal Cannula 2.0 28 11/01/18 20:00 98.1 70 19 104/52 (69) 98 70 11/01/18 16:00 97.9 75 18 108/55 (72) 98 61 Intake and Output 11/01/18 11/02/18 19:00 07:00 Intake Total 800 ml Output Total 1100 ml 100 ml Balance -300 ml -100 ml Intake Oral 800 ml Output Urine Total 100 ml Other 1100 ml # Voids 3 Objective WDWN NAD reduced breath sounds bilaterally coarse without change [id number] without RG; murmur NABS nontender no HSM no CCE nonfocal ALOC Laboratory Tests 1/5/19 05:00: White Blood Count 7.2, Red Blood Count 3.33L, Hemoglobin 11.1L, Hematocrit 34.3L , Mean Corpuscular Volume 103H, Mean Corpuscular Hemoglobin 33.3H, Mean Corpuscular Hemoglobin Concent 32.3, Red Cell Distribution Width 16.8H, Platelet Count 83L, Mean Platelet Volume 6.5, Neutrophils (%) (Auto) , Lymphocytes (%) (Auto) , Monocytes (%) (Auto) , Eosinophils (%) (Auto) , Basophils (%) (Auto) , Differential Total Cells Counted 100, Neutrophils % ( Manual) 76H, Lymphocytes % (Manual) 18L, Monocytes % (Manual) 5, Eosinophils % ( Manual) 1, Basophils % (Manual) 0, Band Neutrophils 0, Platelet Estimate DecreasedL, Platelet Morphology Normal, Hypochromasia 1+, Anisocytosis 1+, Macrocytosis 1+, Sodium Level 134L, Potassium Level 4.1, Chloride Level 99, Carbon Dioxide Level 29, Anion Gap 6, Blood Urea Nitrogen 35H, Creatinine 5.5H, Estimat Glomerular Filtration Rate , Glucose Level 112H, Calcium Level 8.4L, Phosphorus Level 3.3, Total Bilirubin 0.4, Aspartate Amino Transf (AST/SGOT) 17 , Alanine Aminotransferase (ALT/SGPT) 17, Alkaline Phosphatase 108, Pro-B-Type Natriuretic Peptide 66784U, Total Protein 6.1L, Albumin 2.2L, Globulin 3.9, Albumin/Globulin Ratio 0.6L Current Medications Medications (Trade) Dose Ordered Sig/Kris Route PRN Reason Start Time Stop Time Status Last Admin Dose Admin Allopurinol (Zyloprim) 200 mg DAILY ORAL 10/28/18 09:00 11/21/18 08:59 11/02/18 08:48 Apixaban (Eliquis) 2.5 mg BID ORAL 10/27/18 18:00 11/21/18 08:59 10/30/18 09:06 Bisacodyl (Dulcolax) 10 mg DAILY ORAL 10/29/18 09:00 11/28/18 08:59 11/01/18 08:39 Carvedilol (Coreg) 25 mg EVERY 12 HOURS ORAL 10/27/18 21:00 11/24/18 08:59 11/01/18 08:37 Cefepime HCl 0.5 gm/Dextrose 55 ml @ 110 mls/hr Q24H IVPB 10/31/18 21:00 11/07/18 20:59 11/01/18 22:10 Docusate Sodium (Colace) 250 mg BID ORAL 10/28/18 18:00 11/27/18 17:59 11/01/18 18:11 Epoetin Issa (Procrit (for ESRD on dialysis)) 8,000 units SUN-SUN-SUN SUBQ 11/01/18 21:00 12/01/18 20:59 11/01/18 21:37 Finasteride (Proscar) 5 mg DAILY ORAL 10/28/18 09:00 11/21/18 08:59 11/02/18 08:47 Isosorbide Mononitrate (Imdur) 30 mg DAILY ORAL 10/28/18 09:00 11/21/18 08:59 11/02/18 08:48 Lactulose (Cephulac) 30 gm TIDPRN PRN ORAL Constipation 10/27/18 17:30 11/26/18 17:29 10/28/18 06:17 Levofloxacin (Levaquin) 250 mg Q48H ORAL 11/02/18 09:00 11/09/18 08:59 11/02/18 08:48 Nifedipine (Procardia XL) 30 mg DAILY ORAL 10/28/18 09:00 11/21/18 08:59 11/01/18 08:38 Pantoprazole (Protonix) 40 mg DAILY ORAL 10/28/18 09:00 11/22/18 08:59 11/02/18 08:48 Polyethylene Glycol (Miralax) 17 gm BEDTIME ORAL 10/27/18 21:00 11/26/18 20:59 10/30/18 20:20 Sevelamer Carbonate (Renvela) 800 mg THREE TIMES A DAY ORAL 10/27/18 18:00 11/21/18 17:59 11/02/18 08:48 Trazodone HCl (Desyrel) 50 mg BEDTIME ORAL 10/27/18 21:00 11/20/18 23:14 11/01/18 21:37 Vancomycin HCl (Vanco rx to dose) 1 ea DAILY PRN MISC Per rx protocol 10/28/18 09:00 11/20/18 21:59 Juan José Jin MD Nov 02, 2018 12:01
--- NOTE | 2018-11-02 13:13 | NUR ---
NURSE NOTES: RN relayed Dr. Perez that patient's platelet is 83,000 today and on eliquis for A-Fib, no episodes of bleeding, MD aware with new order to hold eliquis today.Carried out.
--- NOTE | 2018-11-02 13:26 | General Progress Note ---
Assessment/Plan Problem List: (1) Pulmonary hypertension ICD Codes: I27.20 - Pulmonary hypertension, unspecified SNOMED: 88329316 (2) Hypoxemia ICD Codes: R09.02 - Hypoxemia SNOMED: 996925467 (3) Hypertensive kidney disease ICD Codes: I12.9 - Hypertensive chronic kidney disease with stage 1 through stage 4 chronic kidney disease, or unspecified chronic kidney disease SNOMED: 20854685 (4) COPD (chronic obstructive pulmonary disease) with emphysema ICD Codes: J43.9 - Emphysema, unspecified SNOMED: 91491441 (5) Shortness of breath ICD Codes: R06.02 - Shortness of breath SNOMED: 376494017 (6) COPD (chronic obstructive pulmonary disease) with chronic bronchitis ICD Codes: J44.9 - Chronic obstructive pulmonary disease, unspecified SNOMED: 879453006 (7) Acute respiratory failure ICD Codes: J96.00 - Acute respiratory failure SNOMED: 40236666 (8) Hepatic encephalopathy ICD Codes: K72.90 - Hepatic encephalopathy SNOMED: 47419752 (9) Fluid overload ICD Codes: E87.70 - Hypervolemia SNOMED: 41357719 (10) Hypertension ICD Codes: I10 - Hypertension SNOMED: 02940027 (11) Non-compliance with treatment ICD Codes: Z91.19 - Noncompliance with treatment SNOMED: 7445373 (12) Atrial fibrillation with rapid ventricular response ICD Codes: I48.91 - Atrial fibrillation with rapid ventricular response SNOMED: 307170385319226 Status: stable Assessment/Plan cont current rx o2 resp care iv abx mobilize HD per renal monitor h/h dc planning pt/ot eval Subjective ROS Limited/Unobtainable: No Constitutional: Reports: malaise, weakness HEENT: Reports: no symptoms Cardiovascular: Reports: no symptoms Respiratory: Reports: shortness of breath Gastrointestinal/Abdominal: Reports: no symptoms Genitourinary: Reports: no symptoms Neurologic/Psychiatric: Reports: no symptoms Endocrine: Reports: no symptoms Hematologic/Lymphatic: Reports: no symptoms Allergies: Coded Allergies: BANANA (Verified Allergy, Severe, 09/05/18) GIL (Verified Allergy, Severe, 09/05/18) CARROT (Verified Allergy, Severe, 09/05/18) Dairy (Verified Allergy, Severe, 09/05/18) GRAPE (Verified Allergy, Severe, 09/05/18) Pork (Verified Allergy, Severe, 09/05/18) Potato (Verified Allergy, Severe, 08/12/18) All Systems: reviewed and negative except above Subjective no complaints. s/p thoracentesis. sob is unchanged according to the pt Objective Last 24 Hour Vital Signs Date Time Temp Pulse Resp B/P (MAP) Pulse Ox O2 Delivery O2 Flow Rate FiO2 11/02/18 13:13 Room Air 11/02/18 12:00 97.2 80 18 148/67 (94) 100 11/02/18 09:00 Nasal Cannula 2.0 11/02/18 08:49 72 144/60 11/02/18 08:48 144/60 11/02/18 08:00 97.0 72 18 144/60 (88) 100 11/02/18 04:00 98.6 80 17 139/63 (88) 100 80 11/02/18 00:00 98.5 63 18 142/58 (86) 100 63 11/01/18 21:00 Nasal Cannula 2.0 11/01/18 20:05 99 Nasal Cannula 2.0 28 11/01/18 20:05 Nasal Cannula 2.0 28 11/01/18 20:00 98.1 70 19 104/52 (69) 98 70 11/01/18 16:00 97.9 75 18 108/55 (72) 98 61 Intake and Output 11/01/18 11/02/18 19:00 07:00 Intake Total 800 ml Output Total 1100 ml 100 ml Balance -300 ml -100 ml Intake Oral 800 ml Output Urine Total 100 ml Other 1100 ml # Voids 3 Laboratory Tests 11/02/18 05:00: White Blood Count 7.2, Red Blood Count 3.33L, Hemoglobin 11.1L, Hematocrit 34.3L , Mean Corpuscular Volume 103H, Mean Corpuscular Hemoglobin 33.3H, Mean Corpuscular Hemoglobin Concent 32.3, Red Cell Distribution Width 16.8H, Platelet Count 83L, Mean Platelet Volume 6.5, Neutrophils (%) (Auto) , Lymphocytes (%) (Auto) , Monocytes (%) (Auto) , Eosinophils (%) (Auto) , Basophils (%) (Auto) , Differential Total Cells Counted 100, Neutrophils % ( Manual) 76H, Lymphocytes % (Manual) 18L, Monocytes % (Manual) 5, Eosinophils % ( Manual) 1, Basophils % (Manual) 0, Band Neutrophils 0, Platelet Estimate DecreasedL, Platelet Morphology Normal, Hypochromasia 1+, Anisocytosis 1+, Macrocytosis 1+, Sodium Level 134L, Potassium Level 4.1, Chloride Level 99, Carbon Dioxide Level 29, Anion Gap 6, Blood Urea Nitrogen 35H, Creatinine 5.5H, Estimat Glomerular Filtration Rate , Glucose Level 112H, Calcium Level 8.4L, Phosphorus Level 3.3, Total Bilirubin 0.4, Aspartate Amino Transf (AST/SGOT) 17 , Alanine Aminotransferase (ALT/SGPT) 17, Alkaline Phosphatase 108, Pro-B-Type Natriuretic Peptide 46842W, Total Protein 6.1L, Albumin 2.2L, Globulin 3.9, Albumin/Globulin Ratio 0.6L Height (Feet): 5 Height (Inches): 1.00 Weight (Pounds): 132 Objective General Appearance: WD/WN, alert Neck: supple Cardiovascular: regular rhythm Respiratory/Chest: decreased breath sounds, crackles/rales Abdomen: normal bowel sounds, non tender, soft, no organomegaly Edema: no edema noted Arm (L), no edema noted Arm (R), no edema noted Leg (L), no edema noted Leg (R), no edema noted Pedal (L), no edema noted Pedal (R), no edema noted Generalized 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
--- NOTE | 2018-11-02 14:01 | Nephrology Progress Note ---
Assessment/Plan Problem List: (1) ESRD (end stage renal disease) on dialysis (2) Fluid overload (3) COPD (chronic obstructive pulmonary disease) (4) Pericardial effusion (5) Pulmonary hypertension (6) Hypoxemia (7) Anemia in CKD (chronic kidney disease) Assessment Presents with respiratory distress and hypoxia Possiblities: CHF-Pul HTN- COPD (1) ESRD (end stage renal disease) on dialysis tue vibha sat (2) h/o Atrial fibrillation with rapid ventricular response (3) h/o Myocardial injury (4) Pericardial effusion (5) Fluid overload other Hypertension h/o Respiratory Arrest and Pneumonia and Hemoptysis ESRD Maulti infarct brain disease Pulm HTN Now DNR Plan HD 11/02 and DC ? Pulm eval appreciated chest CT noted Thoracynthesis PRN BP check and BP med adjustment Optimize cardiac and pulmonary status transfused 1 unit parameters for bp meds CXR ? worsening edema Subjective ROS Limited/Unobtainable: No Objective Objective Last 24 Hour Vital Signs Date Time Temp Pulse Resp B/P (MAP) Pulse Ox O2 Delivery O2 Flow Rate FiO2 11/02/18 13:13 Room Air 11/02/18 12:00 97.2 80 18 148/67 (94) 100 11/02/18 09:00 Nasal Cannula 2.0 11/02/18 08:49 72 144/60 11/02/18 08:48 144/60 11/02/18 08:00 97.0 72 18 144/60 (88) 100 11/02/18 04:00 98.6 80 17 139/63 (88) 100 80 11/02/18 00:00 98.5 63 18 142/58 (86) 100 63 11/01/18 21:00 Nasal Cannula 2.0 11/01/18 20:05 99 Nasal Cannula 2.0 28 11/01/18 20:05 Nasal Cannula 2.0 28 11/01/18 20:00 98.1 70 19 104/52 (69) 98 70 11/01/18 16:00 97.9 75 18 108/55 (72) 98 61 Intake and Output 11/01/18 11/02/18 19:00 07:00 Intake Total 800 ml Output Total 1100 ml 100 ml Balance -300 ml -100 ml Intake Oral 800 ml Output Urine Total 100 ml Other 1100 ml # Voids 3 Current Medications Medications (Trade) Dose Ordered Sig/Kris Route PRN Reason Start Time Stop Time Status Last Admin Dose Admin Allopurinol (Zyloprim) 200 mg DAILY ORAL 10/28/18 09:00 11/21/18 08:59 11/02/18 08:48 Apixaban (Eliquis) 2.5 mg BID ORAL 10/27/18 18:00 11/21/18 08:59 10/30/18 09:06 Bisacodyl (Dulcolax) 10 mg DAILY ORAL 10/29/18 09:00 11/28/18 08:59 11/01/18 08:39 Carvedilol (Coreg) 25 mg EVERY 12 HOURS ORAL 10/27/18 21:00 11/24/18 08:59 11/01/18 08:37 Cefepime HCl 0.5 gm/Dextrose 55 ml @ 110 mls/hr Q24H IVPB 10/31/18 21:00 11/07/18 20:59 11/01/18 22:10 Docusate Sodium (Colace) 250 mg BID ORAL 10/28/18 18:00 11/27/18 17:59 11/01/18 18:11 Epoetin Issa (Procrit (for ESRD on dialysis)) 8,000 units SUN-SUN-SUN SUBQ 11/01/18 21:00 12/01/18 20:59 11/01/18 21:37 Finasteride (Proscar) 5 mg DAILY ORAL 10/28/18 09:00 11/21/18 08:59 11/02/18 08:47 Isosorbide Mononitrate (Imdur) 30 mg DAILY ORAL 10/28/18 09:00 11/21/18 08:59 11/02/18 08:48 Lactulose (Cephulac) 30 gm TIDPRN PRN ORAL Constipation 10/27/18 17:30 11/26/18 17:29 10/28/18 06:17 Levofloxacin (Levaquin) 250 mg Q48H ORAL 11/02/18 09:00 11/09/18 08:59 11/02/18 08:48 Nifedipine (Procardia XL) 30 mg DAILY ORAL 10/28/18 09:00 11/21/18 08:59 11/01/18 08:38 Pantoprazole (Protonix) 40 mg DAILY ORAL 10/28/18 09:00 11/22/18 08:59 11/02/18 08:48 Polyethylene Glycol (Miralax) 17 gm BEDTIME ORAL 10/27/18 21:00 11/26/18 20:59 10/30/18 20:20 Sevelamer Carbonate (Renvela) 800 mg THREE TIMES A DAY ORAL 10/27/18 18:00 11/21/18 17:59 11/02/18 13:01 Trazodone HCl (Desyrel) 50 mg BEDTIME ORAL 10/27/18 21:00 11/20/18 23:14 11/01/18 21:37 Vancomycin HCl (Vanco rx to dose) 1 ea DAILY PRN MISC Per rx protocol 10/28/18 09:00 11/20/18 21:59 Laboratory Tests 11/02/18 05:00: White Blood Count 7.2, Red Blood Count 3.33L, Hemoglobin 11.1L, Hematocrit 34.3L , Mean Corpuscular Volume 103H, Mean Corpuscular Hemoglobin 33.3H, Mean Corpuscular Hemoglobin Concent 32.3, Red Cell Distribution Width 16.8H, Platelet Count 83L, Mean Platelet Volume 6.5, Neutrophils (%) (Auto) , Lymphocytes (%) (Auto) , Monocytes (%) (Auto) , Eosinophils (%) (Auto) , Basophils (%) (Auto) , Differential Total Cells Counted 100, Neutrophils % ( Manual) 76H, Lymphocytes % (Manual) 18L, Monocytes % (Manual) 5, Eosinophils % ( Manual) 1, Basophils % (Manual) 0, Band Neutrophils 0, Platelet Estimate DecreasedL, Platelet Morphology Normal, Hypochromasia 1+, Anisocytosis 1+, Macrocytosis 1+, Sodium Level 134L, Potassium Level 4.1, Chloride Level 99, Carbon Dioxide Level 29, Anion Gap 6, Blood Urea Nitrogen 35H, Creatinine 5.5H, Estimat Glomerular Filtration Rate , Glucose Level 112H, Calcium Level 8.4L, Phosphorus Level 3.3, Total Bilirubin 0.4, Aspartate Amino Transf (AST/SGOT) 17 , Alanine Aminotransferase (ALT/SGPT) 17, Alkaline Phosphatase 108, Pro-B-Type Natriuretic Peptide 48482P, Total Protein 6.1L, Albumin 2.2L, Globulin 3.9, Albumin/Globulin Ratio 0.6L Height (Feet): 5 Height (Inches): 1.00 Weight (Pounds): 132 General Appearance: no apparent distress Cardiovascular: normal rate Respiratory/Chest: decreased breath sounds Objective no other changes Ady Gómez MD Nov 02, 2018 14:01
--- NOTE | 2018-11-02 15:49 | Diagnostic Imaging Report ---
Indication: Dyspnea Comparison: 10/27/2018 A single view chest radiograph was obtained. Findings: Mild vascular interstitial edema demonstrated with cardiomegaly. Left hemidiaphragm is elevated. Lung volumes have improved since the last occasion. Accounting for this there is probably little change or slight improvement. IMPRESSION: Mild interstitial edema/CHF. There may be slight improvement since the last study
--- NOTE | 2018-11-02 15:49 | Diagnostic Imaging Report ---
Indications: Pleural effusion Technique: Ultrasound used to localize optimal puncture site. Sterile prepping and draping of the right lower chest performed. Local anesthesia with 1% lidocaine. Dermatotomy made. Puncture of the pleural space using thoracentesis needle. Stylet removed. Catheter placed to vacuum bottle suction. Fluid was aspirated. Patient tolerated procedure well, without immediate complication. Findings: Followup sonography demonstrates complete resolution of pleural fluid. Followup chest x-ray is pending. Impression: Successful ultrasound-guided right thoracentesis, yielding 1.1 liters of fluid
[2018-11-02 15:52] VITALS: BP 144/54
--- NOTE | 2018-11-02 19:14 | NUR ---
HAND-OFF: Report given to Chinmay.
--- NOTE | 2018-11-02 19:15 | NUR ---
NURSE NOTES: Received patient on bed sitting, no s/s of any distress,denies any pain. IV line patent and intact. Bed in low position and locked, call light within reach, will continue to monitor.
[2018-11-02 20:00] VITALS: BP 161/64
[2018-11-02] MEDS: Miralax 17gm pkt ORAL SCH (21:00)
[2018-11-02] MEDS: TraZODone 50mg tab ORAL SCH (21:02)
[2018-11-02] MEDS: Cefepime HCl 0.5 GM in D5W 55 ML IVPB SCH (21:02)
[2018-11-02] MEDS ORDERED: NS 275ml ONE (22:42)
[2018-11-03] VITALS: BP 143/62
[2018-11-03 04:00] VITALS: BP 145/61
--- NOTE | 2018-11-03 04:00 | Progress Note ---
DATE: 11/03/2018 CARDIOLOGY PROGRESS NOTE SUBJECTIVE: He is status post thoracentesis. He has no change in his condition according to the patient and feels short of breath as before. OBJECTIVE: VITAL SIGNS: Blood pressure 148/67, pulse 80, and respirations 18. LUNGS: Bilateral breath sounds. No wheezing. HEART: Regular rhythm and rate. Normal S1 and S2 with no rub. ABDOMEN: Soft. EXTREMITIES: Trace edema. LABORATORY DATA: White count 7.2 and hemoglobin 11.1. Potassium is 4.1, BUN 35, and creatinine 5.5. Pro-natriuretic peptide has increased slightly to 18,000 and albumin is 2.2. IMPRESSION: 1. Acute on chronic diastolic congestive heart failure. 2. Pericardial effusion. 3. Pleural effusion. 4. End-stage renal disease. 5. Pulmonary hypertension. 6. Multi-infarct dementia. 7. Hypertensive heart disease. 8. Anemia of chronic kidney disease, status post transfusion. PLAN: 1. Continue hemodialysis and ultrafiltration. 2. Continue titration and optimization of anti-failure and antihypertensive regimen. 3. Limited options with regard to long-term care. 4. The patient refusing care home facility. 5. Would recommend additional fluid removal prior to discharge. Luis Jade M.D. DR: MARILEE JOB#: [id number] CC:
--- NOTE | 2018-11-03 06:20 | NUR ---
NURSE NOTES: Patient complaints of troubled breathing, O2 sat checked it's 100%, patient ask for a breathing treatment, MD notified, ordered breathing treatment Duoneb q4 hrs PRN.
--- NOTE | 2018-11-03 06:25 | NUR ---
NURSE NOTES: RT called for breathing treatment.
[2018-11-03] MEDS ORDERED: Albuterol/Ipratropium 3ml neb HHN PRN (06:45)
--- NOTE | 2018-11-03 07:12 | NUR ---
HAND-OFF: Report given to Pb MICHAEL.
--- NOTE | 2018-11-03 07:24 | NUR ---
NURSE NOTES: Received patient in bed, awake, alert and oriented x4. On oxygen @2L/min via NC. Denies any pain or discomfort @ this time.No bleeding from AV shunt.Bed is in lowest position and locked. Call light and personnel items within reach. Will continue plan of care.
[2018-11-03 08:00] VITALS: BP 152/60
[2018-11-03] MEDS: Docusate 250mg cap ORAL SCH ×2 (08:23→17:29)
[2018-11-03] MEDS: Bisacodyl EC 5mg tab ORAL SCH ×2 (08:24→08:29)
[2018-11-03] MEDS: Eliquis 2.5mg tablet ORAL SCH ×2 (08:24→17:28)
[2018-11-03] MEDS: Allopurinol 100mg Tab ORAL SCH (08:24)
[2018-11-03] MEDS: Carvedilol 25mg Tab ORAL SCH ×2 (08:25→21:03)
[2018-11-03] MEDS: Imdur 30mg tab ORAL SCH (08:25)
--- NOTE | 2018-11-03 09:22 | Pulmonology Progress Note ---
Assessment/Plan Assessment/Plan ASSESSMENT: CHF HHD COPD pulmonary fibrosis interstitial fibrosis mild pulmonary congestion hypertension CVA CKD fluid overload pleural effusion s/p tap (1.1 liters) thrombocytopenia PLAN keep negative as is cxr improved HD with UF respiratory care without change oxygen tap if able supportive care stable for dc per pulmonary conservative care likely at present as patient relatively asymptomatic; no evidence of UIP pattern to justify antifibrotic agents impression, plan, and exam edited and reviewed in detail care discussed with RN Subjective ROS Limited/Unobtainable: Yes Allergies: Coded Allergies: BANANA (Verified Allergy, Severe, 09/05/18) GIL (Verified Allergy, Severe, 09/05/18) CARROT (Verified Allergy, Severe, 09/05/18) Dairy (Verified Allergy, Severe, 09/05/18) GRAPE (Verified Allergy, Severe, 09/05/18) Pork (Verified Allergy, Severe, 09/05/18) Potato (Verified Allergy, Severe, 08/12/18) Subjective confused overnight events noted and reviewed no distress Objective Last 24 Hour Vital Signs Date Time Temp Pulse Resp B/P (MAP) Pulse Ox O2 Delivery O2 Flow Rate FiO2 11/03/18 09:00 Nasal Cannula 2.0 11/03/18 08:25 77 152/60 11/03/18 08:25 152/60 11/03/18 08:25 77 152/60 11/03/18 08:18 76 18 100 Nasal Cannula 2.0 28 11/03/18 08:13 Nasal Cannula 2.0 28 11/03/18 08:13 99 Nasal Cannula 2.0 28 11/03/18 08:11 73 18 99 Nasal Cannula 2.0 28 11/03/18 08:00 97.2 77 18 152/60 (90) 98 11/03/18 04:00 98.0 77 18 145/61 (89) 98 11/03/18 00:00 97.9 75 17 143/62 (89) 98 11/02/18 21:02 81 161/64 11/02/18 21:00 Nasal Cannula 2.0 11/02/18 20:00 97.7 81 18 161/64 (96) 100 11/02/18 15:52 98.0 82 18 144/54 (84) 100 11/02/18 13:13 Room Air 11/02/18 12:00 97.2 80 18 148/67 (94) 100 Intake and Output 11/02/18 11/03/18 19:00 07:00 Intake Total 720 ml 240 ml Output Total 2100 ml Balance 720 ml -1860 ml Intake Oral 720 ml 240 ml Output Urine Total 100 ml Hemodialysis UF 2000 ml # Voids 1 # Bowel Movements 2 1 Objective WDWN NAD reduced breath sounds bilaterally coarse without change [id number] without RG; murmur NABS nontender no HSM no CCE nonfocal ALOC Laboratory Tests 11/03/18 06:10: Random Vancomycin Level 21.9 Current Medications Medications (Trade) Dose Ordered Sig/Kris Route PRN Reason Start Time Stop Time Status Last Admin Dose Admin Albuterol/ Ipratropium (Albuterol/ Ipratropium) 3 ml Q4H PRN HHN Shortness of Breath 11/03/18 06:45 11/08/18 06:44 11/03/18 08:11 Allopurinol (Zyloprim) 200 mg DAILY ORAL 10/28/18 09:00 11/21/18 08:59 11/03/18 08:24 Apixaban (Eliquis) 2.5 mg BID ORAL 10/27/18 18:00 11/21/18 08:59 11/03/18 08:24 Bisacodyl (Dulcolax) 10 mg DAILY ORAL 10/29/18 09:00 11/28/18 08:59 11/01/18 08:39 Carvedilol (Coreg) 25 mg EVERY 12 HOURS ORAL 10/27/18 21:00 11/24/18 08:59 11/03/18 08:25 Cefepime HCl 0.5 gm/Dextrose 55 ml @ 110 mls/hr Q24H IVPB 10/31/18 21:00 11/07/18 20:59 11/02/18 21:02 Docusate Sodium (Colace) 250 mg BID ORAL 10/28/18 18:00 11/27/18 17:59 11/03/18 08:23 Epoetin Issa (Procrit (for ESRD on dialysis)) 8,000 units MON-WED-SUN SUBQ 11/01/18 21:00 12/01/18 20:59 11/01/18 21:37 Finasteride (Proscar) 5 mg DAILY ORAL 10/28/18 09:00 11/21/18 08:59 11/03/18 08:24 Isosorbide Mononitrate (Imdur) 30 mg DAILY ORAL 10/28/18 09:00 11/21/18 08:59 11/03/18 08:25 Lactulose (Cephulac) 30 gm TIDPRN PRN ORAL Constipation 10/27/18 17:30 11/26/18 17:29 10/28/18 06:17 Levofloxacin (Levaquin) 250 mg Q48H ORAL 11/02/18 09:00 11/09/18 08:59 11/02/18 08:48 Nifedipine (Procardia XL) 30 mg DAILY ORAL 10/28/18 09:00 11/21/18 08:59 11/03/18 08:25 Pantoprazole (Protonix) 40 mg DAILY ORAL 10/28/18 09:00 11/22/18 08:59 11/03/18 08:23 Polyethylene Glycol (Miralax) 17 gm BEDTIME ORAL 10/27/18 21:00 11/26/18 20:59 10/30/18 20:20 Sevelamer Carbonate (Renvela) 800 mg THREE TIMES A DAY ORAL 10/27/18 18:00 11/21/18 17:59 11/03/18 08:24 Trazodone HCl (Desyrel) 50 mg BEDTIME ORAL 10/27/18 21:00 11/20/18 23:14 11/02/18 21:02 Vancomycin HCl (Vanco rx to dose) 1 ea DAILY PRN MISC Per rx protocol 10/28/18 09:00 11/20/18 21:59 Juan José Jin MD Nov 03, 2018 09:22
--- NOTE | 2018-11-03 10:38 | Nephrology Progress Note ---
Assessment/Plan Problem List: (1) ESRD (end stage renal disease) on dialysis (2) Fluid overload (3) COPD (chronic obstructive pulmonary disease) (4) Pericardial effusion (5) Pulmonary hypertension (6) Hypoxemia (7) Anemia in CKD (chronic kidney disease) Assessment Presents with respiratory distress and hypoxia Possiblities: CHF-Pul HTN- COPD (1) ESRD (end stage renal disease) on dialysis tue vibha sat (2) h/o Atrial fibrillation with rapid ventricular response (3) h/o Myocardial injury (4) Pericardial effusion (5) Fluid overload other Hypertension h/o Respiratory Arrest and Pneumonia and Hemoptysis ESRD Maulti infarct brain disease Pulm HTN Now DNR Plan HD 11/02 and DC ? per PMD Pulm eval appreciated chest CT noted Thoracynthesis PRN BP check and BP med adjustment Optimize cardiac and pulmonary status transfused 1 unit parameters for bp meds CXR ? worsening edema Subjective ROS Limited/Unobtainable: No Objective Objective Last 24 Hour Vital Signs Date Time Temp Pulse Resp B/P (MAP) Pulse Ox O2 Delivery O2 Flow Rate FiO2 11/03/18 09:00 Nasal Cannula 2.0 11/03/18 08:25 77 152/60 11/03/18 08:25 152/60 11/03/18 08:25 77 152/60 11/03/18 08:18 76 18 100 Nasal Cannula 2.0 28 11/03/18 08:13 Nasal Cannula 2.0 28 11/03/18 08:13 99 Nasal Cannula 2.0 28 11/03/18 08:11 73 18 99 Nasal Cannula 2.0 28 11/03/18 08:00 97.2 77 18 152/60 (90) 98 11/03/18 04:00 98.0 77 18 145/61 (89) 98 11/03/18 00:00 97.9 75 17 143/62 (89) 98 11/02/18 21:02 81 161/64 11/02/18 21:00 Nasal Cannula 2.0 11/02/18 20:00 97.7 81 18 161/64 (96) 100 11/02/18 15:52 98.0 82 18 144/54 (84) 100 11/02/18 13:13 Room Air 11/02/18 12:00 97.2 80 18 148/67 (94) 100 Intake and Output 11/02/18 11/03/18 19:00 07:00 Intake Total 720 ml 240 ml Output Total 2100 ml Balance 720 ml -1860 ml Intake Oral 720 ml 240 ml Output Urine Total 100 ml Hemodialysis UF 2000 ml # Voids 1 # Bowel Movements 2 1 Laboratory Tests 11/03/18 06:10: Random Vancomycin Level 21.9 Height (Feet): 5 Height (Inches): 1.00 Weight (Pounds): 132 General Appearance: no apparent distress Objective no other changes Ady Gómez MD Nov 03, 2018 10:38
--- NOTE | 2018-11-03 11:54 | General Progress Note ---
Assessment/Plan Problem List: (1) Pulmonary hypertension ICD Codes: I27.20 - Pulmonary hypertension, unspecified SNOMED: 61877491 (2) Hypoxemia ICD Codes: R09.02 - Hypoxemia SNOMED: 266684226 (3) Hypertensive kidney disease ICD Codes: I12.9 - Hypertensive chronic kidney disease with stage 1 through stage 4 chronic kidney disease, or unspecified chronic kidney disease SNOMED: 12202791 (4) COPD (chronic obstructive pulmonary disease) with emphysema ICD Codes: J43.9 - Emphysema, unspecified SNOMED: 07981895 (5) Shortness of breath ICD Codes: R06.02 - Shortness of breath SNOMED: 109116042 (6) COPD (chronic obstructive pulmonary disease) with chronic bronchitis ICD Codes: J44.9 - Chronic obstructive pulmonary disease, unspecified SNOMED: 251078980 (7) Acute respiratory failure ICD Codes: J96.00 - Acute respiratory failure SNOMED: 57263057 (8) Hepatic encephalopathy ICD Codes: K72.90 - Hepatic encephalopathy SNOMED: 17093691 (9) Fluid overload ICD Codes: E87.70 - Hypervolemia SNOMED: 24675783 (10) Hypertension ICD Codes: I10 - Hypertension SNOMED: 78429334 (11) Non-compliance with treatment ICD Codes: Z91.19 - Noncompliance with treatment SNOMED: 8482244 (12) Atrial fibrillation with rapid ventricular response ICD Codes: I48.91 - Atrial fibrillation with rapid ventricular response SNOMED: 405307410802695 Status: stable, progressing Assessment/Plan cont current rx o2 resp care iv abx mobilize HD per renal monitor h/h pt/ot eval dc planning Subjective ROS Limited/Unobtainable: No Constitutional: Reports: malaise, weakness HEENT: Reports: no symptoms Cardiovascular: Reports: no symptoms Respiratory: Reports: cough, shortness of breath, sputum Gastrointestinal/Abdominal: Reports: no symptoms Genitourinary: Reports: no symptoms Neurologic/Psychiatric: Reports: no symptoms Endocrine: Reports: no symptoms Hematologic/Lymphatic: Reports: anemia Allergies: Coded Allergies: BANANA (Verified Allergy, Severe, 09/05/18) GIL (Verified Allergy, Severe, 09/05/18) CARROT (Verified Allergy, Severe, 09/05/18) Dairy (Verified Allergy, Severe, 09/05/18) GRAPE (Verified Allergy, Severe, 09/05/18) Pork (Verified Allergy, Severe, 09/05/18) Potato (Verified Allergy, Severe, 08/12/18) All Systems: reviewed and negative except above Subjective no complaints. according to nurse feels worse. family called asking to increase breathing treatments. sputum culture results noted. on iv abx. cxr shows mild improvement Objective Last 24 Hour Vital Signs Date Time Temp Pulse Resp B/P (MAP) Pulse Ox O2 Delivery O2 Flow Rate FiO2 11/03/18 09:00 Nasal Cannula 2.0 11/03/18 08:25 77 152/60 11/03/18 08:25 152/60 11/03/18 08:25 77 152/60 11/03/18 08:18 76 18 100 Nasal Cannula 2.0 28 11/03/18 08:13 Nasal Cannula 2.0 28 11/03/18 08:13 99 Nasal Cannula 2.0 28 11/03/18 08:11 73 18 99 Nasal Cannula 2.0 28 11/03/18 08:00 97.2 77 18 152/60 (90) 98 11/03/18 04:00 98.0 77 18 145/61 (89) 98 11/03/18 00:00 97.9 75 17 143/62 (89) 98 11/02/18 21:02 81 161/64 11/02/18 21:00 Nasal Cannula 2.0 11/02/18 20:00 97.7 81 18 161/64 (96) 100 11/02/18 15:52 98.0 82 18 144/54 (84) 100 11/02/18 13:13 Room Air 11/02/18 12:00 97.2 80 18 148/67 (94) 100 Intake and Output 11/02/18 11/03/18 19:00 07:00 Intake Total 720 ml 240 ml Output Total 2100 ml Balance 720 ml -1860 ml Intake Oral 720 ml 240 ml Output Urine Total 100 ml Hemodialysis UF 2000 ml # Voids 1 # Bowel Movements 2 1 Laboratory Tests 11/03/18 06:10: Random Vancomycin Level 21.9 Height (Feet): 5 Height (Inches): 1.00 Weight (Pounds): 132 Objective General Appearance: WD/WN, alert Neck: supple Cardiovascular: regular rhythm Respiratory/Chest: decreased breath sounds, crackles/rales Abdomen: normal bowel sounds, non tender, soft, no organomegaly Edema: no edema noted Arm (L), no edema noted Arm (R), no edema noted Leg (L), no edema noted Leg (R), no edema noted Pedal (L), no edema noted Pedal (R), no edema noted Generalized Neurologic: junior data analyst II-XII grossly normal, alert, oriented x 3, responsive Bulmaro Perez MD Nov 03, 2018 11:54
[2018-11-03 12:00] VITALS: BP 137/62
--- NOTE | 2018-11-03 13:54 | NUR ---
PT Note PT toby completed, treatment initiated. Patient is cooperative but c/o fatigue, dizziness and SOB during gait training. Patient can benefit from PT services to increase his muscle strength and balance to improve his safety in mobility and gait. Addendum: 11/03/18 at 1355 by AZEB JALLOH PT Amended: Links added.
--- NOTE | 2018-11-03 14:47 | NUR ---
NURSE NOTES: Instructed patient to expectorate sputum in a specimen cup for sputum culture. Addendum: 11/03/18 at 1911 by TIM PATEL RN Wrong entry. Order got cancelled
[2018-11-03 16:00] VITALS: BP 143/55
--- NOTE | 2018-11-03 19:11 | NUR ---
HAND-OFF: Report given to Chinmay.
--- NOTE | 2018-11-03 19:11 | NUR ---
NURSE NOTES: Received patient on bed sitting, hooked to O2@2L via NC, no s/s of any distress, denies any pain. IV line patent and intact, GT intact. Bed in low position and locked, call light within reach, will continue to monitor.
[2018-11-03 20:00] VITALS: BP 148/86
[2018-11-03] MEDS: Miralax 17gm pkt ORAL SCH (21:00)
[2018-11-03] MEDS: TraZODone 50mg tab ORAL SCH (21:04)
[2018-11-03] MEDS: Cefepime HCl 0.5 GM in D5W 55 ML IVPB SCH (21:04)
[2018-11-04] VITALS: BP 130/50
[2018-11-04 04:00] VITALS: BP 135/51
--- NOTE | 2018-11-04 04:30 | Progress Note ---
DATE: 11/03/2018 CARDIOLOGY PROGRESS NOTE SUBJECTIVE: The patient feels worse. He has been asking for more breathing treatments. He is on IV antibiotics. The chest x-ray reviewed reveals mild improvement in pulmonary congestion and infiltrates. OBJECTIVE: VITAL SIGNS: Blood pressure 152/60, pulse 77, respirations 18. LUNGS: Diminished breath sounds with rhonchi. HEART: Irregularly irregular rhythm. Normal S1, S2. No new murmur. ABDOMEN: Soft. Dialysis catheter site clean and dry. EXTREMITIES: No edema. IMPRESSION: 1. End-stage renal disease. 2. Acute on chronic diastolic congestive heart failure. 3. Pleural effusion, status post thoracentesis. 4. Pericardial effusion with no signs of tamponade. 5. Anemia of chronic kidney disease, status post transfusion. PLAN: Increase ultrafiltration with hemodialysis. Titrate anti-failure therapy. Repeat chest radiograph. Discharge planning. Luis Jade M.D. DR: YOSI/JUAN JOB#: [id number] CC:
--- NOTE | 2018-11-04 07:20 | NUR ---
HAND-OFF: Report given to Luis M MICHAEL.
[2018-11-04] MEDS ORDERED: BISACODYL5 MG ORAL (07:31)
[2018-11-04] MEDS ORDERED: DESYREL50 MG ORAL (07:31)
[2018-11-04] MEDS ORDERED: Levofloxacin 250mg ORAL (07:31)
[2018-11-04] MEDS ORDERED: ELIQUIS2.5 MG ORAL (07:31)
[2018-11-04] MEDS ORDERED: COREG25 MG ORAL (07:31)
[2018-11-04] MEDS ORDERED: ISOSORBIDE MONO30 M1 ORAL (07:31)
[2018-11-04] MEDS ORDERED: PROTONIX40 MG ORAL (07:31)
[2018-11-04] MEDS ORDERED: PROCARDIA XL30 MG ORAL (07:31)
[2018-11-04] MEDS ORDERED: MIRALAX17 GM ORAL (07:31)
[2018-11-04] MEDS ORDERED: ALLOPURINOL100 M1 ORAL (07:31)
[2018-11-04] MEDS ORDERED: RENVELA800 MG ORAL (07:31)
[2018-11-04] MEDS ORDERED: COLACE250 MG ORAL (07:31)
[2018-11-04] MEDS ORDERED: FINASTERIDE5 MG ORAL (07:31)
[2018-11-04 08:00] VITALS: BP 135/61
--- NOTE | 2018-11-04 08:30 | Discharge Summary ---
DATE OF ADMISSION: 10/21/2018 DATE OF DISCHARGE: 11/04/2018 ADMISSION DIAGNOSES: 1. Respiratory failure. 2. COPD exacerbation. 3. Hypertension. 4. End-stage renal disease, on chronic hemodialysis. 5. Paroxysmal atrial fibrillation. 6. Pneumonia. DISCHARGE DIAGNOSES: 1. Respiratory failure. 2. COPD exacerbation. 3. Hypertension. 4. End-stage renal disease, on chronic hemodialysis. 5. Paroxysmal atrial fibrillation. 6. Pneumonia. 7. Pleural effusion, status post thoracentesis. BRIEF HISTORY AND HOSPITAL COURSE: The patient is a pleasant male, was admitted with complaints of shortness of breath. He was diagnosed with CHF exacerbation. He required multiple dialysis sessions. He had slow improvement in his pulmonary edema. He was diagnosed with healthcare associated versus aspiration pneumonia as well as a pleural effusion. He underwent a thoracentesis that was uncomplicated. Afterwards shortness of breath was only minimally improved. He was continued on hemodialysis with ultrafiltration. His pneumonia was treated with antibiotics. He had a Pseudomonas that was pansensitive. On discharge, he was stable. It was recommended that he go to a group home facility, but he refused. He was discharged home with home health. He an additional 10 days of IV antibiotic therapy. DISCHARGE MEDICATIONS: Please see discharge medication list for discharge medications. DIET: Renal and cardiac diet. ACTIVITY: Ad-barby. FOLLOWUP: The patient is to follow up by his PMD in one to two weeks. Bulmaro Perez M.D. DR: NIKOLAS JOB#: [id number] CC:
[2018-11-04] MEDS: Eliquis 2.5mg tablet ORAL SCH ×4 (08:59→17:52)
[2018-11-04] MEDS: Bisacodyl EC 5mg tab ORAL SCH (09:00)
[2018-11-04] MEDS: Allopurinol 100mg Tab ORAL SCH (09:00)
[2018-11-04] MEDS: Docusate 250mg cap ORAL SCH ×2 (09:00→17:51)
[2018-11-04] MEDS: Imdur 30mg tab ORAL SCH (09:01)
[2018-11-04] MEDS: Carvedilol 25mg Tab ORAL SCH ×2 (09:02→20:59)
--- NOTE | 2018-11-04 10:44 | NUR ---
NURSE NOTES: pt in bed with no sob nor in any form of distress noted. nc@2L. all due meds given as ordered. denies any pain at this time. will continue to monitor
--- NOTE | 2018-11-04 11:01 | Nephrology Progress Note ---
Assessment/Plan Problem List: (1) ESRD (end stage renal disease) on dialysis (2) Fluid overload (3) COPD (chronic obstructive pulmonary disease) (4) Pericardial effusion (5) Pulmonary hypertension (6) Hypoxemia (7) Anemia in CKD (chronic kidney disease) Assessment Presents with respiratory distress and hypoxia Possiblities: CHF-Pul HTN- COPD (1) ESRD (end stage renal disease) on dialysis tue vibha sat (2) h/o Atrial fibrillation with rapid ventricular response (3) h/o Myocardial injury (4) Pericardial effusion (5) Fluid overload other Hypertension h/o Respiratory Arrest and Pneumonia and Hemoptysis ESRD Maulti infarct brain disease Pulm HTN Now DNR Plan HD 11/02 and DC ? per PMD Pulm eval appreciated chest CT noted Thoracynthesis PRN BP check and BP med adjustment Optimize cardiac and pulmonary status transfused 1 unit parameters for bp meds CXR ? worsening edema Subjective ROS Limited/Unobtainable: No Constitutional: Reports: malaise Objective Objective Last 24 Hour Vital Signs Date Time Temp Pulse Resp B/P (MAP) Pulse Ox O2 Delivery O2 Flow Rate FiO2 11/04/18 09:02 71 150/59 11/04/18 09:01 150/59 11/04/18 09:00 Nasal Cannula 2.0 11/04/18 09:00 71 150/59 11/04/18 08:17 Nasal Cannula 2.0 28 11/04/18 08:17 99 Nasal Cannula 2.0 28 11/04/18 08:00 98.1 79 20 135/61 (85) 100 11/04/18 04:00 97.7 71 18 135/51 (79) 100 11/04/18 00:00 97.4 67 18 130/50 (76) 100 11/03/18 21:03 85 148/56 11/03/18 21:00 Nasal Cannula 2.0 11/03/18 20:29 99 Nasal Cannula 2.0 28 11/03/18 20:29 Nasal Cannula 2.0 28 11/03/18 20:00 97.7 85 18 148/86 (106) 100 11/03/18 16:00 97.8 74 18 143/55 (84) 100 11/03/18 12:00 98.6 66 20 137/62 (87) 97 Intake and Output 11/03/18 11/04/18 19:00 07:00 Intake Total 720 ml 150 ml Output Total 650 ml Balance 720 ml -500 ml Intake Oral 720 ml 150 ml Output Urine Total 650 ml Height (Feet): 5 Height (Inches): 1.00 Weight (Pounds): 131 General Appearance: no apparent distress Cardiovascular: normal rate Respiratory/Chest: decreased breath sounds Abdomen: soft Objective no other changes Ady Gómez MD Nov 04, 2018 11:01
[2018-11-04 12:00] VITALS: BP 112/48
[2018-11-04 16:00] VITALS: BP 119/48
--- NOTE | 2018-11-04 16:09 | NUR ---
CASE MANAGEMENT:REVIEW 11/04/18 SI: ESRD. AC/CHR CHF 97.1 74 20 112/48 100% ON 2L/NC PLT-83 BUN 35 CR+5.5 IS: LEVAQUIN PO Q48 IV CEFEPIME Q24 IMDUR PO QD PROCARDIA XL PO QD COREG PO Q12 ELIQUIS PO BID : MED/SURG STATUS
--- NOTE | 2018-11-04 19:37 | NUR ---
HAND-OFF: Report given to FERNANDA Byrnes.
--- NOTE | 2018-11-04 19:41 | NUR ---
NURSE NOTES: Received patient in bed, in sitting position. Receiving 2L O2 via N/C, no SOB, no acute distress, no c/o pain noted. RFA 24 saline lock intact and patent. L AV shunt thrill and bruit. Skin is intact. In stable condition. Bed in lowest position, locked, alarms on. Call light in reach.
[2018-11-04 20:00] VITALS: BP 130/55
[2018-11-04] MEDS: TraZODone 50mg tab ORAL SCH (20:59)
[2018-11-04] MEDS: Miralax 17gm pkt ORAL SCH (20:59)
[2018-11-04] MEDS ORDERED: Epogen (for ESRD on dialysis) SUBQ SCH (21:00)
[2018-11-04] MEDS: Cefepime HCl 0.5 GM in D5W 55 ML IVPB SCH (21:08)
--- NOTE | 2018-11-04 22:27 | Pulmonology Progress Note ---
Assessment/Plan Assessment/Plan ASSESSMENT: CHF HHD COPD pulmonary fibrosis interstitial fibrosis mild pulmonary congestion hypertension CVA CKD fluid overload pleural effusion s/p tap (1.1 liters) thrombocytopenia PLAN keep negative as is HD with UF respiratory care without change oxygen tap if able supportive care monitor conservative care likely at present as patient relatively asymptomatic; no evidence of UIP pattern to justify antifibrotic agents impression, plan, and exam edited and reviewed in detail care discussed with RN Subjective Allergies: Coded Allergies: BANANA (Verified Allergy, Severe, 09/05/18) GIL (Verified Allergy, Severe, 09/05/18) CARROT (Verified Allergy, Severe, 09/05/18) Dairy (Verified Allergy, Severe, 09/05/18) GRAPE (Verified Allergy, Severe, 09/05/18) Pork (Verified Allergy, Severe, 09/05/18) Potato (Verified Allergy, Severe, 08/12/18) Subjective confused overnight events noted and reviewed mild congestion Objective Last 24 Hour Vital Signs Date Time Temp Pulse Resp B/P (MAP) Pulse Ox O2 Delivery O2 Flow Rate FiO2 11/04/18 20:59 65 130/55 11/04/18 20:00 97.2 65 16 130/55 (80) 100 11/04/18 16:00 98.2 65 20 119/48 (71) 100 11/04/18 12:00 97.1 74 20 112/48 (69) 100 11/04/18 09:02 71 150/59 11/04/18 09:01 150/59 11/04/18 09:00 Nasal Cannula 2.0 11/04/18 09:00 71 150/59 11/04/18 08:17 Nasal Cannula 2.0 28 11/04/18 08:17 99 Nasal Cannula 2.0 28 11/04/18 08:00 98.1 79 20 135/61 (85) 100 11/04/18 04:00 97.7 71 18 135/51 (79) 100 11/04/18 00:00 97.4 67 18 130/50 (76) 100 Intake and Output 11/03/18 11/04/18 19:00 07:00 Intake Total 720 ml 150 ml Output Total 650 ml Balance 720 ml -500 ml Intake Oral 720 ml 150 ml Output Urine Total 650 ml Objective WDWN NAD reduced breath sounds bilaterally coarse without change [id number] without RG; murmur NABS nontender no HSM no CCE nonfocal ALOC Current Medications Medications (Trade) Dose Ordered Sig/Kris Route PRN Reason Start Time Stop Time Status Last Admin Dose Admin Albuterol/ Ipratropium (Albuterol/ Ipratropium) 3 ml Q4H PRN HHN Shortness of Breath 11/03/18 06:45 11/08/18 06:44 11/03/18 08:11 Allopurinol (Zyloprim) 200 mg DAILY ORAL 10/28/18 09:00 11/21/18 08:59 11/04/18 09:00 Apixaban (Eliquis) 2.5 mg BID ORAL 10/27/18 18:00 11/21/18 08:59 11/03/18 17:28 Bisacodyl (Dulcolax) 10 mg DAILY ORAL 10/29/18 09:00 11/28/18 08:59 11/01/18 08:39 Carvedilol (Coreg) 25 mg EVERY 12 HOURS ORAL 10/27/18 21:00 11/24/18 08:59 11/04/18 20:59 Cefepime HCl 0.5 gm/Dextrose 55 ml @ 110 mls/hr Q24H IVPB 10/31/18 21:00 11/07/18 20:59 11/04/18 21:08 Cetylpyridinium Chloride (Cepacol) 1 lozg Q2H PRN LONA sore throat 11/04/18 09:00 12/04/18 08:59 11/04/18 09:06 Docusate Sodium (Colace) 250 mg BID ORAL 10/28/18 18:00 11/27/18 17:59 11/03/18 17:29 Epoetin Issa (Procrit (for ESRD on dialysis)) 6,000 units SUN-SUN-SUN SUBQ 11/04/18 21:00 12/04/18 20:59 11/04/18 21:06 Finasteride (Proscar) 5 mg DAILY ORAL 10/28/18 09:00 11/21/18 08:59 11/04/18 09:01 Isosorbide Mononitrate (Imdur) 30 mg DAILY ORAL 10/28/18 09:00 11/21/18 08:59 11/04/18 09:01 Lactulose (Cephulac) 30 gm TIDPRN PRN ORAL Constipation 10/27/18 17:30 11/26/18 17:29 10/28/18 06:17 Levofloxacin (Levaquin) 250 mg Q48H ORAL 11/02/18 09:00 11/09/18 08:59 11/04/18 09:00 Nifedipine (Procardia XL) 30 mg DAILY ORAL 10/28/18 09:00 11/21/18 08:59 11/04/18 09:00 Pantoprazole (Protonix) 40 mg DAILY ORAL 10/28/18 09:00 11/22/18 08:59 11/04/18 09:01 Polyethylene Glycol (Miralax) 17 gm BEDTIME ORAL 10/27/18 21:00 11/26/18 20:59 11/04/18 20:59 Sevelamer Carbonate (Renvela) 800 mg THREE TIMES A DAY ORAL 10/27/18 18:00 11/21/18 17:59 11/04/18 17:51 Trazodone HCl (Desyrel) 50 mg BEDTIME ORAL 10/27/18 21:00 11/20/18 23:14 11/04/18 20:59 Vancomycin HCl (Vanco rx to dose) 1 ea DAILY PRN MISC Per rx protocol 10/28/18 09:00 11/20/18 21:59 Juan José Jin MD Nov 04, 2018 22:27
[2018-11-05] VITALS: BP 127/48
--- NOTE | 2018-11-05 02:30 | Progress Note ---
DATE: 11/04/2018 CARDIOLOGY PROGRESS NOTE SUBJECTIVE: The patient continues to have shortness of breath. He has been receiving hemodialysis with ultrafiltration. OBJECTIVE: VITAL SIGNS: Blood pressure 150/59, pulse 71, and respirations 20. LUNGS: Bilateral breath sounds, diminished at the right base. HEART: Irregularly irregular rhythm. Normal S1, S2. ABDOMEN: Soft. EXTREMITIES: Trace edema. IMPRESSION: 1. End-stage renal disease. 2. Pericardial effusion. 3. Recurring pleural effusion. 4. Acute on chronic diastolic congestive heart failure. 5. Atrial fibrillation. PLAN: 1. Continue hemodialysis with ultrafiltration. 2. Ongoing titration of cardiovascular regimen. 3. Monitor clinical parameters, presently no signs of pericardial tamponade or need for pericardiocentesis. 4. Discharge planning. 5. The patient is high risk for recurring hospitalizations due to his multiorgan system disease. Luis Jade M.D. DR: NEERAJ JOB#: [id number] CC:
[2018-11-05 04:00] VITALS: BP 115/44
--- NOTE | 2018-11-05 07:19 | NUR ---
HAND-OFF: Report given to Deanne dAdison RN.
[2018-11-05 08:00] VITALS: BP 143/54
[2018-11-05] MEDS: Eliquis 2.5mg tablet ORAL SCH (08:12)
[2018-11-05] MEDS: Allopurinol 100mg Tab ORAL SCH (08:13)
[2018-11-05] MEDS: Docusate 250mg cap ORAL SCH (08:18)
[2018-11-05] MEDS: Carvedilol 25mg Tab ORAL SCH (08:18)
[2018-11-05] MEDS: Imdur 30mg tab ORAL SCH ×2 (08:19→09:46)
[2018-11-05] MEDS: Bisacodyl EC 5mg tab ORAL SCH ×2 (08:19→09:00)
--- NOTE | 2018-11-05 08:47 | General Progress Note ---
Assessment/Plan Problem List: (1) Pulmonary hypertension ICD Codes: I27.20 - Pulmonary hypertension, unspecified SNOMED: 46191989 (2) Hypoxemia ICD Codes: R09.02 - Hypoxemia SNOMED: 143210815 (3) Hypertensive kidney disease ICD Codes: I12.9 - Hypertensive chronic kidney disease with stage 1 through stage 4 chronic kidney disease, or unspecified chronic kidney disease SNOMED: 36786245 (4) COPD (chronic obstructive pulmonary disease) with emphysema ICD Codes: J43.9 - Emphysema, unspecified SNOMED: 40449980 (5) Shortness of breath ICD Codes: R06.02 - Shortness of breath SNOMED: 763020857 (6) COPD (chronic obstructive pulmonary disease) with chronic bronchitis ICD Codes: J44.9 - Chronic obstructive pulmonary disease, unspecified SNOMED: 204065508 (7) Acute respiratory failure ICD Codes: J96.00 - Acute respiratory failure SNOMED: 93991891 (8) Hepatic encephalopathy ICD Codes: K72.90 - Hepatic encephalopathy SNOMED: 82351968 (9) Fluid overload ICD Codes: E87.70 - Hypervolemia SNOMED: 99140710 (10) Hypertension ICD Codes: I10 - Hypertension SNOMED: 33589571 (11) Non-compliance with treatment ICD Codes: Z91.19 - Noncompliance with treatment SNOMED: 6939077 (12) Atrial fibrillation with rapid ventricular response ICD Codes: I48.91 - Atrial fibrillation with rapid ventricular response SNOMED: 380370259239775 Status: stable, progressing Assessment/Plan cont current rx o2 resp care iv abx mobilize HD per renal monitor h/h pt/ot eval dc planning Subjective ROS Limited/Unobtainable: No Constitutional: Reports: malaise, weakness HEENT: Reports: no symptoms Cardiovascular: Reports: no symptoms Respiratory: Reports: cough Gastrointestinal/Abdominal: Reports: no symptoms Genitourinary: Reports: no symptoms Neurologic/Psychiatric: Reports: no symptoms Endocrine: Reports: no symptoms Hematologic/Lymphatic: Reports: no symptoms Allergies: Coded Allergies: BANANA (Verified Allergy, Severe, 09/05/18) GIL (Verified Allergy, Severe, 09/05/18) CARROT (Verified Allergy, Severe, 09/05/18) Dairy (Verified Allergy, Severe, 09/05/18) GRAPE (Verified Allergy, Severe, 09/05/18) Pork (Verified Allergy, Severe, 09/05/18) Potato (Verified Allergy, Severe, 08/12/18) All Systems: reviewed and negative except above Subjective no complaints. feels "better." due for HD. Objective Last 24 Hour Vital Signs Date Time Temp Pulse Resp B/P (MAP) Pulse Ox O2 Delivery O2 Flow Rate FiO2 11/05/18 08:00 97.8 68 18 143/54 (83) 100 11/05/18 04:00 97.6 67 17 115/44 (67) 100 11/05/18 00:00 97.0 68 17 127/48 (74) 100 11/04/18 21:00 Nasal Cannula 2.0 11/04/18 20:59 65 130/55 11/04/18 20:00 94 Nasal Cannula 2.0 28 11/04/18 20:00 97.2 65 16 130/55 (80) 100 11/04/18 20:00 Nasal Cannula 2.0 28 11/04/18 16:00 98.2 65 20 119/48 (71) 100 11/04/18 12:00 97.1 74 20 112/48 (69) 100 11/04/18 09:02 71 150/59 11/04/18 09:01 150/59 11/04/18 09:00 Nasal Cannula 2.0 11/04/18 09:00 71 150/59 Intake and Output 11/04/18 11/05/18 18:59 06:59 Intake Total 1340 ml 255 ml Output Total 300 ml 150 ml Balance 1040 ml 105 ml Intake Oral 1340 ml 200 ml IV Total 55 ml Output Urine Total 300 ml 150 ml # Voids 1 Height (Feet): 5 Height (Inches): 1.00 Weight (Pounds): 137 Objective General Appearance: WD/WN, alert Neck: supple Cardiovascular: regular rhythm Respiratory/Chest: decreased breath sounds, crackles/rales Abdomen: normal bowel sounds, non tender, soft, no organomegaly Edema: no edema noted Arm (L), no edema noted Arm (R), no edema noted Leg (L), no edema noted Leg (R), no edema noted Pedal (L), no edema noted Pedal (R), no edema noted Generalized Neurologic: platform stapler II-XII grossly normal, alert, oriented x 3, responsive [place],Bulmaro M. MD Nov 05, 2018 08:47
--- NOTE | 2018-11-05 09:36 | NUR ---
NURSE NOTES: Patient was seen by Dr. Perez and RN received discharge order to d/c home with home health since patient and his refused to go to nursing.Per patient, he has oxygen and the other stuff @ home. Per Dr. Perez, prescription was sent to [facility] pharmacy including antibiotics.
--- NOTE | 2018-11-05 10:23 | NUR ---
DISCHARGE PLANNING PATIENT HAS BEEN REFERRED TO : [facility] P:[phone] F:[phone]
--- NOTE | 2018-11-05 10:42 | NUR ---
AIRPLANE CAPTAIN NOTES SPOKE WITH MO PT'S SON VERIFIED PT HAS OXYGEN @ HOME. SPOKE WITH QUINN FROM [facility] VERIFIED PT CHAIR TIME 0815 ON ,S. PT TO BE DC HOME AFTER HD TODAY.
--- NOTE | 2018-11-05 10:59 | NUR ---
ST NOTE: SWALLOW STATUS CHART REVIEWED. DISCUSSED WITH JAPANESE-SPEAKING RNTIM RE: PT'S CONDITIONS. PER RN, PT WILL BE D/C HOME TODAY WITH HOME HEALTH AFTER THE DIALYSIS. PT TOLERATED MECH SOFT(GROUND) WITH NECTAR THICK LIQUIDS WITHOUT OVERT S/S OF ASPIRATION. PT SEEN AT BEDSIDE IN AM WITH PT'S SPOUSE AND RNTIM AT BEDSIDE TO DISCUSS AND EDUCATE PT AND PT'S SPOUSE RE: ASPIRATION PRECAUTIONS AND DIET CONSISTENCY. EDUCATED PT'S SPOUSE THAT PT IS AT RISK FOR ASPIRATION WITH THIN LIQUIDS, RECOMMENDED PT TO STAY ON NECTAR THICK LIQUIDS FOR NOW. PT'S SPOUSE VERBALIZED THE GOOD UNDERSTANDING OF INFO GIVEN. D/W THE STAFF. RECOMMEND SPEECH THERAPY RE: SWALLOW TX OP/HOME HEALTH. D/C FROM SK[facility]
[2018-11-05 12:00] VITALS: BP 123/69
--- NOTE | 2018-11-05 12:01 | NUR ---
NURSE NOTES: Patient is on dialysis. RN arranged ambulance for 4:00pm. C/O [place]
--- NOTE | 2018-11-05 12:03 | NUR ---
RD ASSESSMENT & RECOMMENDATIONS SEE CARE ACTIVITY FOR COMPLETE ASSESSMENT DAILY ESTIMATED NEEDS: Needs based on ESRD on HD, 60.5kg 30-35 kcals/kg 2417-0037 total kcals 1.2-1.8 g protein/kg 73-91 g total protein Fluid per MD, on HD NUTRITION DIAGNOSIS: 1) Increased kcal/pro needs R/T renal dysfunction as evidenced by ESRD dx, on HD. 2) Chewing difficulty R/T poor dentition as evidenced by pt w/ dentures, evaluated by ADJUNCT TEACHER w/ diet texture downgrade to ground w/ NTL. CURRENT DIET: Renal MS ground, NTL PO DIET RECOMMENDATIONS: RENAL/ texture per ADJUNCT TEACHER ADDITIONAL RECOMMENDATIONS: * Calibrated bedscale or standing wt for accurate CBW (post HD for dry wt) * Nephrovite 1 tab daily as supplement * Per spouse, pt is NOT allergic to food items listed on the allergy list - pt was told to avoid them due to ESRD * Monitor lytes and renal fxn closely- ESRD dx * Continue Nepro 1 topher BID w/ variable PO intake .
--- NOTE | 2018-11-05 13:21 | Nephrology Progress Note ---
Assessment/Plan Problem List: (1) ESRD (end stage renal disease) on dialysis (2) Fluid overload (3) COPD (chronic obstructive pulmonary disease) (4) Pericardial effusion (5) Pulmonary hypertension (6) Hypoxemia (7) Anemia in CKD (chronic kidney disease) Assessment Presents with respiratory distress and hypoxia Possiblities: CHF-Pul HTN- COPD (1) ESRD (end stage renal disease) on dialysis tue vibha sat (2) h/o Atrial fibrillation with rapid ventricular response (3) h/o Myocardial injury (4) Pericardial effusion (5) Fluid overload other Hypertension h/o Respiratory Arrest and Pneumonia and Hemoptysis ESRD [place] infarct brain disease Pulm HTN Now DNR Plan HD 11/05 and DC ? per PMD Pulm eval appreciated chest CT noted Thoracynthesis PRN BP check and BP med adjustment Optimize cardiac and pulmonary status transfused 1 unit parameters for bp meds CXR ? worsening edema Subjective ROS Limited/Unobtainable: No Constitutional: Reports: malaise Objective Objective Last 24 Hour Vital Signs Date Time Temp Pulse Resp B/P (MAP) Pulse Ox O2 Delivery O2 Flow Rate FiO2 11/05/18 12:00 97.6 68 18 123/69 (87) 100 11/05/18 10:21 Nasal Cannula 2.0 28 11/05/18 10:21 52 18 11/05/18 10:21 99 Nasal Cannula 2.0 28 11/05/18 09:46 143/54 11/05/18 09:00 Nasal Cannula 2.0 11/05/18 08:00 97.8 68 18 143/54 (83) 100 11/05/18 04:00 97.6 67 17 115/44 (67) 100 11/05/18 00:00 97.0 68 17 127/48 (74) 100 11/04/18 21:00 Nasal Cannula 2.0 11/04/18 20:59 65 130/55 11/04/18 20:00 94 Nasal Cannula 2.0 28 11/04/18 20:00 97.2 65 16 130/55 (80) 100 11/04/18 20:00 Nasal Cannula 2.0 28 11/04/18 16:00 98.2 65 20 119/48 (71) 100 Intake and Output 11/04/18 11/05/18 19:00 07:00 Intake Total 1340 ml 255 ml Output Total 300 ml 150 ml Balance 1040 ml 105 ml Intake Oral 1340 ml 200 ml IV Total 55 ml Output Urine Total 300 ml 150 ml # Voids 1 Height (Feet): 5 Height (Inches): 1.00 Weight (Pounds): 137 General Appearance: no apparent distress Cardiovascular: normal rate Respiratory/Chest: decreased breath sounds Abdomen: soft Objective no other changes Ady Gómez MD Nov 05, 2018 13:21
--- NOTE | 2018-11-05 14:30 | NUR ---
NURSE NOTES: dialysis is done. 2L was removed per dialysis nurse. AV shunt on left upper arm with pressure dressing, no bleeding.
--- NOTE | 2018-11-05 15:32 | NUR ---
NURSE NOTES: Patient wants to take medicine for constipation. Dulcolax given.
[2018-11-05 16:00] VITALS: BP 129/59
--- NOTE | 2018-11-05 16:06 | NUR ---
NURSE NOTES: Rn followed up with [facility]. Ambulance will be here in about 30mins.
--- NOTE | 2018-11-05 16:45 | NUR ---
NURSE NOTES: Ambulance will be here in 10 mins per [facility].
--- NOTE | 2018-11-05 17:35 | NUR ---
NURSE NOTES: Patient was discharge to home accompanied by two ambulance personnel and his . Prior to discharge, patient's v/S stable. Afebrile. Denied any pain or discomfort. On oxygen but no congestion or wheezing, no phlegm. discharge instruction given to the patient and about antibiotics of levaquin 250mg Q48 hrs to take tomorrow morning and prescribed medications to strip picker from [facility] pharmacy and patient needs nectar thickened liquid for aspiration precaution. Patient and both understood of importance of getting thickened liquid. will ask his son to order it from online. [facility] was arranged by JANIS Jorgensen and home health phone number was given to the patient. Instructed patient and to follow up with home health just in case they do not follow up with the patient. Per patient and , there are walker,oxygen, wheelchair and other stuff @ home. IV and ID was removed prior to discharge. AV shunt on left arm with pressure dressing, no bleeding. Skin intact. No s/s of infection on IV removal site. All belongings accounted for, upper and lower dentures worn by patient.Patient was picked up by [facility] via gurney to home.
--- NOTE | 2018-11-05 19:50 | Pulmonology Progress Note ---
Assessment/Plan Assessment/Plan ASSESSMENT: CHF HHD COPD pulmonary fibrosis interstitial fibrosis mild pulmonary congestion hypertension CVA CKD fluid overload pleural effusion s/p tap (1.1 liters) thrombocytopenia PLAN seen earlier dc planning noted HD with UF respiratory care without change oxygen tap if able supportive care monitor for change and would be happy to see after discharge conservative care likely at present as patient relatively asymptomatic; no evidence of UIP pattern to justify antifibrotic agents impression, plan, and exam edited and reviewed in detail care discussed with RN Subjective ROS Limited/Unobtainable: Yes Allergies: Coded Allergies: BANANA (Verified Allergy, Severe, 09/05/18) GIL (Verified Allergy, Severe, 09/05/18) CARROT (Verified Allergy, Severe, 09/05/18) Dairy (Verified Allergy, Severe, 09/05/18) GRAPE (Verified Allergy, Severe, 09/05/18) Pork (Verified Allergy, Severe, 09/05/18) Potato (Verified Allergy, Severe, 08/12/18) Subjective confused overnight events noted and reviewed mild congestion Objective Last 24 Hour Vital Signs Date Time Temp Pulse Resp B/P (MAP) Pulse Ox O2 Delivery O2 Flow Rate FiO2 11/05/18 16:00 97.6 70 18 129/59 (82) 100 11/05/18 12:00 97.6 68 18 123/69 (87) 100 11/05/18 10:21 Nasal Cannula 2.0 28 11/05/18 10:21 52 18 11/05/18 10:21 99 Nasal Cannula 2.0 28 11/05/18 09:46 143/54 11/05/18 09:00 Nasal Cannula 2.0 11/05/18 08:00 97.8 68 18 143/54 (83) 100 11/05/18 04:00 97.6 67 17 115/44 (67) 100 11/05/18 00:00 97.0 68 17 127/48 (74) 100 11/04/18 21:00 Nasal Cannula 2.0 11/04/18 20:59 65 130/55 11/04/18 20:00 94 Nasal Cannula 2.0 28 11/04/18 20:00 97.2 65 16 130/55 (80) 100 11/04/18 20:00 Nasal Cannula 2.0 28 Intake and Output 11/04/18 11/05/18 19:00 07:00 Intake Total 1340 ml 255 ml Output Total 300 ml 150 ml Balance 1040 ml 105 ml Intake Oral 1340 ml 200 ml IV Total 55 ml Output Urine Total 300 ml 150 ml # Voids 1 Objective WDWN NAD reduced breath sounds bilaterally coarse without change [id number] without RG; murmur NABS nontender no HSM no CCE nonfocal ZARAOC Juan José Jin MD Nov 05, 2018 19:50
--- NOTE | 2018-11-06 03:15 | Progress Note ---
CARDIOLOGY PROGRESS NOTE DATE: 11/05/2018 SUBJECTIVE: The patient feels better, although still short of breath at times, but is comfortable. He is status post hemodialysis. OBJECTIVE: VITAL SIGNS: Blood pressure 123/69, pulse 68, and respirations 18. NECK: Supple. No Kussmaul sign. LUNGS: Clear. CARDIAC: Irregularly irregular rhythm. Normal S1, S2 with no new murmur. ABDOMEN: Soft. EXTREMITIES: Without edema. IMPRESSION: Stable from cardiovascular standpoint to complete recovery as an outpatient. This will include continued hemodialysis with increased ultrafiltration and titration of his anti-failure regimen based on clinical parameters. The patient may require thoracentesis effort in the future and periodic monitoring of clinical parameters and echocardiogram with regard to pericardial effusion, which has not suggested any signs of tamponade during his hospital stay. Luis Jade M.D. DR: ANTOINETTE JOB#: [id number] CC:
--- NOTE | 2018-11-06 13:00 | Diagnostic Imaging Report ---
APPROVED REPORT CPT Code: 62450 Present Symptoms Comments: Swelling SOB BILATERAL: Imaging reveals a patent deep venous system bilaterally. There is no evidence of thrombus within the femoral, popliteal or tibial segments. The greater saphenous veins are also within normal limits. Doppler indicates normal spontaneous flow within these segments.
== END 2018-11-05 17:35 | disposition home health service (06) | DRG 291 ==
LOC: EMR 17:39 → 2E 17:40 → EDBEDREQ 18:03 → 2E 10-22 03:29 → 4E 10-27 14:10
PROC: 5A1D70Z Performance of Urinary Filtration, Intermittent, Less than 6 Hours Per Day (ICD-10-PCS; principal; 2018-10-22)
PROC: 0W993ZZ Drainage of Right Pleural Cavity, Percutaneous Approach (ICD-10-PCS; 2018-10-31)
DX: I13.2 Hypertensive heart and chronic kidney disease with heart failure and with stage 5 chronic kidney disease, or end stage renal disease (principal); N18.6 End stage renal disease; I50.43 Acute on chronic combined systolic (congestive) and diastolic (congestive) heart failure; J18.9 Pneumonia, unspecified organism; E43 Unspecified severe protein-calorie malnutrition; J96.01 Acute respiratory failure with hypoxia; J44.1 Chronic obstructive pulmonary disease with (acute) exacerbation; J44.0 Chronic obstructive pulmonary disease with (acute) lower respiratory infection; I31.3 Pericardial effusion (noninflammatory); J90 Pleural effusion, not elsewhere classified; Z99.2 Dependence on renal dialysis; Y95 Nosocomial condition; D63.1 Anemia in chronic kidney disease; I25.10 Atherosclerotic heart disease of native coronary artery without angina pectoris; I48.0 Paroxysmal atrial fibrillation; Z68.25 Body mass index [BMI] 25.0-25.9, adult; Z66 Do not resuscitate; I27.20 Pulmonary hypertension, unspecified; E87.70 Fluid overload, unspecified; K72.90 Hepatic failure, unspecified without coma; Z91.19 Patient's noncompliance with other medical treatment and regimen; D69.6 Thrombocytopenia, unspecified; J84.10 Pulmonary fibrosis, unspecified
CPT/HCPCS: 36415; 71045; 71260; 76942; 80053; 80061; 80202; 82550; 82553; 82607; 82728; 82746; 83036; 83540; 83550; 83605; 83735; 83880; 84100; 84443; 84484; 84550; 85007; 85025; 85610; 85730; 86140; 86710; 86850; 86900; 86901; 86920; 87040; 87070; 87081; 87181; 87205; 93005; 93306; 93970; 94640; 94664; 94760; 96365; 99285; J7620